=== PATIENT | female | born 1995 | race Caucasian/White ===

== ENCOUNTER 2017-11-30 12:29 | Emergency (ER) | payer MEDICAID ==
[~2017-11-30] VITALS: Ht 154.9 cm; Wt 48.1 kg
[~2017-11-30 12:29] MED LIST: ACHD5005 PO; AMIT25TA9 PO; AMIT75TA2; AMIT75TA2 PO; Amitriptyline Hcl PO; BENZ-13 PO; CEFD300C PO; CEPH-507 PO; DICY10CA26 PO; DICY10CA59 PO; DOXY100C2 PO; DOXY100C42 PO; FAMO-119 PO; FAMO20TA5 PO; GABA-486 PO; GUAI10SY4 PO; HYDR-2858 PO; HYDR-3714 PO; HYDR-757 PO; HYOS0.1216 PO; HYOS0.1283 SL; Hydroxyzine; LORA0.5T34 PO; LORA1TAB59 PO; LRT10T PO; METO10TA3 PO; MOTRIN; NITR-65 PO; NORG1TAB14; NYST1000 PO; OMEP20CA12 PO; OMEP20TA7 PO; OMEP40CA36 PO; ONDA-42 SL; ONDA4TAB8 PO; ONDA4TAB8 SL; ONDA8TAB13 PO; ONDA8TAB9 PO; ORTHO EVRA PATCH TD; ORTHO EVRA TD; PANT20TA PO; PANT20TA2 PO; PANT20TA3 PO; PANT40TA PO; PANT40TA2 PO; PHEN-640 PO; PNT40TEC PO; POTA10CA43 PO; POTA20TA15 PO; PRC25SU PR; PRD20T PO; PRM25T PO; PROM25SU10 PR; PROM25SU43 RC; RANI-10 PO; RANI75TA30 PO; SULF-222 PO; SULF1TAB35 PO; SUMA5SPR NS; TRAM50TA2 PO; TRIA10.8 NSEACH; TRM50T PO; TYLENOL
[2017-11-30 13:29] VITALS: BP 98/53
[2017-11-30] MEDS ORDERED: FENT1PAT8 (13:46)
[2017-11-30 14:42] LABS: BILIRUBIN,URINE NEGATIVE (NEGATIVE); CLARITY,URINE CLEAR; COLOR,URINE YELLOW; GLUCOSE, URINE (UA) NEGATIVE (NEGATIVE); KETONES,URINE NEGATIVE (NEGATIVE); LEUKOCYTE ESTERASE ,URINE NEGATIVE (NEGATIVE); NITRITE,URINE NEGATIVE (NEGATIVE); PH,URINE 7 (5-9); PROTEIN,URINE NEGATIVE (NEGATIVE); UROBILINOGEN,URINE NORMAL (NORMAL)
[2017-11-30 14:50] LABS: BACTERIA,URINE NEGATIVE /HPF
--- NOTE | 2017-11-30 18:52 | ED Abdominal Pain ---
General Chief Complaint: -Female Stated Complaint: PELVIC PAIN/SWELLING Nursing Triage Note: PATIENT STATES THAT SHE HAS PELVIC PAIN AND SWELLING IN HER LOWER ABDOMEN. IT HAS BEEN GOING ON FOR 2 WEEKS. SHE WAS TOLD SHE HAD ENDOMETRIOSIS WHEN SHE WAS 17. Sepsis Screen: No Definite Risk Source of Information: Patient Exam Limitations: No Limitations History of Present Illness Date Seen by Provider: Nov 30, 2017 Time Seen by Provider: 14:04 Initial Comments This 21-year-old woman presents to the emergency room with complaints as above. Urinalysis and urine test were ordered based on complaints. Patient left AGAINST MEDICAL ADVICE before being examined by provider or reviewing results. The positive test was not communicated to her prior to her leaving. Allergies and Home Medications Allergies Coded Allergies: No Known Drug Allergies (Unverified , 01/12/16) Home Medications Fentanyl 1 Each Patch.[id number], (Reported) Review of Systems Constitutional: no symptoms reported (Patient left before provider could interview her) Past Ltosxev-Gngvam-Cutsxg Hx Patient Social History Alcohol Use: Occasionally Uses Recreational Drug Use: Yes Drug of Choice: POT Type Used: Cigarettes 2nd Hand Smoke Exposure: Yes Recent Foreign Travel: No Contact w/Someone Who Travel: No Recent Infectious Disease Expo: No Recent Hopitalizations: No Immunizations Up To Date Tetanus Booster (TDap): Less than 5yrs PED Vaccines UTD: Yes Date of Pneumonia Vaccine: Nov 12, 2013 Date of Influenza Vaccine: Sep 11, 2015 Seasonal Allergies Seasonal Allergies: No Surgeries History of Surgeries: Yes (LAPAROSCOPY-OVARIAN CYST, ENDOMETRIOSIS; EGD) Surgeries: Abdominal, Appendectomy, Gallbladder Respiratory History of Respiratory Disorde: Yes Respiratory Disorders: Asthma, Pneumonia Currently Using CPAP: No Currently Using BIPAP: No Cardiovascular History of Cardiac Disorders: No Neurological History of Neurological Disord: No Reproductive System Hx Reproductive Disorders: Yes (LT OVARIAN CYST) Sexually Transmitted Disease: No HIV/AIDS: No Female 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, Ovarian Cyst Gastrointestinal History of Gastrointestinal Di: Yes (CHRONIC ABDOMINAL PAIN, CHRONIC N/V, CANNIBAS HYPEREMESIS SYNDROME) Musculoskeletal History of Musculoskeletal Dis: No Endocrine History of Endocrine Disorders: No Cancer History of Cancer: No Psychosocial History of Psychiatric Problem: Yes ("CYCLIC VOMITING", marijuana abuse) Behavioral Health Disorders: Sleep Difficulties, Anxiety, Depression Integumentary History of Skin or Integumenta: No Blood Transfusions History of Blood Disorders: No Adverse Reaction to a Blood Tr: No Family Medical History Significant Family History: No Pertinent Family Hx Family Medial History: Cancer GPA-DAD SIDE, Onset:Unknown Cataract GMA-DAD SIDE Dementia GPA-DAD SIDE Family history: Arthritis GPA-MOM SIDE Family history: Cardiovascular disease GMA-DAD SIDE (CAD STINTS) GMA-MOM SIDE (ENLARGED HEART DEFIBALATOR AND PACER) History of - respiratory disease GPA-DAD SIDE (EMPHYSEMA, COPD) No Family History of: AIDS Abdominal aortic aneurysm Abdominal aortic aneurysm Charlevoix's disease Charlevoix's disease Alcoholism Alcoholism Alzheimer's disease Aphasia Aphasia Arthritis Asthma Cancer of colon Cancer of mouth Cardiovascular disease Cataracts Chest pain Colon cancer Completed stroke Congenital disease Congenital heart disease Congenital heart disease Congestive heart failure Coronary thrombosis Cystic fibrosis Cystic fibrosis Deafness or hearing loss Diabetes mellitus Drug abuse Dysphagia Dysphasia Family history: Allergy Family history: Alzheimer's disease Family history: Asthma Family history: Breast disease Family history: Coronary thrombosis Family history: Diabetes mellitus Family history: Gastrointestinal disease Family history: Glaucoma Family history: Hypertension Family history: Osteoporosis Family history: Thyroid disorder Fibrocystic disease of breast Gastroenteritis Glaucoma Headache Hearing loss Heart disease Hereditary disease History of - anemia History of - disorder History of drug abuse Human immunodeficiency virus (HIV) seropositivity Hypercholesterolemia Hypercholesterolemia Infertile Kidney disease Malignant neoplasm of lung Myocardial infarction Parkinson's disease Prostate cancer Psychotic disorder Seizure disorder Severe allergy Stroke Thyroid disease Tuberculosis Tuberculosis Visual disorder Visual impairment Physical Exam Vital Signs VS - Last 72 Hours, by Label 11/30/17 13:29 Temp 98.1 Pulse 108 Resp 18 B/P (MAP) 98/53 (68) Pulse Ox 97 Capillary Refill : Less Than 3 Seconds General Appearance: no apparent distress (Patient left before provider could examine her) Progress/Results/Core Measures Results/Orders Lab Results Laboratory Tests Test 11/30/17 14:20 Range/Units Urine Color YELLOW Urine Clarity CLEAR Urine pH 7 5-9 Urine Specific [place] 1.005 L 1.016-1.022 Urine Protein NEGATIVE NEGATIVE Urine Glucose (UA) NEGATIVE NEGATIVE Urine Ketones NEGATIVE NEGATIVE Urine Nitrite NEGATIVE NEGATIVE Urine Bilirubin NEGATIVE NEGATIVE Urine Urobilinogen NORMAL NORMAL MG/DL Urine Leukocyte Esterase NEGATIVE NEGATIVE Urine RBC (Auto) NEGATIVE NEGATIVE Urine RBC NONE /HPF Urine WBC NONE /HPF Urine Squamous Epithelial Cells 10-25 H /HPF Urine Crystals NONE /LPF Urine Bacteria NEGATIVE /HPF Urine Casts NONE /LPF Urine Mucus NEGATIVE /LPF Urine Culture Indicated NO Urine Test POSITIVE NEGATIVE My Orders Orders - DONNA MOHAMUD MD Hcg,Qualitative Urine (11/30/17 14:04) Ua Culture If Indicated (11/30/17 14:04) Vital Signs/I&O Vital Sign - Last 12Hours 11/30/17 13:29 Temp 98.1 Pulse 108 Resp 18 B/P (MAP) 98/53 (68) Pulse Ox 97 Blood Pressure Mean: 68 Point of Care Testing Urine -Bedside: Positive Progress Note : Time: 18:51 Progress Note Patient left without being seen. test was positive. I attempted to contact her by phone on her listed phone number and the contact she had listed. Her number and her father's number were no longer assigned to them. Her mother's phone was busy. 12/01/17, 07:15 - I again attempted to contact patient's next of kin listed on the chart which is her mother. The number remains busy. I will ask ER staff to notify the patient by letter. Departure Impression Impression: Primary Impression: test positive Additional Impressions: Pelvic pain Left against medical advice Disposition: 07 AGAINST MEDICAL ADVICE Condition: Improved Departure-Patient Inst. Referrals: [facility] (PCP) Primary Care Physician Copy Copies To 1: CAYDEN RAZA JOSHUA T MD Nov 30, 2017 18:52
== END 2017-11-30 14:57 | disposition left against medical advice (07) ==
LOC: EDUNIT# 12:29 → ER 12:31
DX: R10.30 Lower abdominal pain, unspecified (principal); F41.9 Anxiety disorder, unspecified; F32.9 Major depressive disorder, single episode, unspecified; G47.9 Sleep disorder, unspecified; J45.909 Unspecified asthma, uncomplicated; F12.90 Cannabis use, unspecified, uncomplicated; Z77.22 Contact with and (suspected) exposure to environmental tobacco smoke (acute) (chronic); Z90.49 Acquired absence of other specified parts of digestive tract; Z87.01 Personal history of pneumonia (recurrent); Z87.42 Personal history of other diseases of the female genital tract; Z32.02 Encounter for pregnancy test, result negative
CPT/HCPCS: 81000; 84703; 99282

== ENCOUNTER 2017-12-09 20:52 | Emergency (ER) | payer MEDICAID ==
[~2017-12-09] VITALS: Ht 157.5 cm; Wt 54.4 kg
[~2017-12-09 20:52] MED LIST changes: +FENT1PAT8
--- NOTE | 2017-12-09 23:38 | ED GU-Female ---
General Chief Complaint: Abdominal/GI Problems Stated Complaint: EDOMETRIOSIS Nursing Triage Note: pt reports lower abdominal, pelvic pain x2-3 weeks. pt denies n/v/d. pt also reports pain with intercorse. pt states has hx of pelvic pain. Nursing Sepsis Screen: No Definite Risk Source: patient Exam Limitations: no limitations History of Present Illness Date Seen by Provider: Dec 09, 2017 Time Seen by Provider: 21:35 Initial Comments 22-year-old female patient presents to the emergency Department with reports of lower abdominal cramping/pelvic pain for 2-3 weeks. Patient denies nausea, vomiting, diarrhea. Has had increased frequency of urination and breast tenderness bilaterally. Denies fevers or chills. Patient states she has been with the same partner for approximately one year. Denies using condoms or making her S.O. "pull out". Denies using contraceptives. States she was previously told she would never be able to get . Patient was seen in the emergency department on 11/30/[address] Willis. Patient left AGAINST MEDICAL ADVICE. Patient states she left, because she got tired of waiting and that she had been in the ER for at least 4 hours and no one had seen her or had done anything. Per EMR patient timeline of visit as follows: arrival time 1229, triaged at 1329, seen by provider at 1404, urine specimen given at 1420, patient left AMA at 1457. Patient did have a positive urine test. Dr. Willis had attempted to contact the patient via telephone. All contact numbers listed in the EMR were invalid numbers. Patient sees Dr. Estes at [facility] for medical care, but states she has not seen him for several months. States she has not filled or taken the fentanyl, Ativan, or Percocet for several months for the cyclic vomiting ( patient's actual diagnosis is Cannabis Hyperemesis per past medical records in EMR and from previous visits with this examiner at [facility] ED). Timing/Duration: intermittent, other (2-3 week onset) Severity/Quality: cramping, other (mild to moderate symptoms) Location: suprapubic Radiation: none Activities at Onset: none Prior Genitourinary Problems: none Sexual [place] History: less than 2 months ago, single partner Modifying Factors: Worsens With Other (denies modifying factors) Allergies and Home Medications Allergies Coded Allergies: No Known Drug Allergies (Unverified , 01/12/16) Constitutional: No chills, No diaphoresis, No dizziness, No fever, No malaise, No weakness EENTM: no symptoms reported Respiratory: No cough, No dyspnea on exertion, No phlegm, No short of breath Cardiovascular: No chest pain, No edema, No palpitations, No syncope Gastrointestinal: abdominal pain (suprapubic abdominal pain), No constipation, No diarrhea, No loss of appetite, No melena, No nausea, No vomiting Genitourinary: see HPI, denies burning, denies discharge, denies dysuria, frequency, denies flank pain, denies hematuria, pain (suprapubic abdominal pain) : Yes (per EMR) LMP: Nov 03, 2017 Musculoskeletal: no symptoms reported Skin: no symptoms reported Psychiatric/Neurological: No Symptoms Reported All Other Systemes Reviewed Negative Unless Noted: Yes (Negative excepted noted.) Past Rjqgspb-Ehknmh-Tnssjz Hx Patient Social History Alcohol Use: Denies Use Recreational Drug Use: Yes Drug of Choice: POT Smoking Status: Current Everyday Smoker Type Used: Cigarettes 2nd Hand Smoke Exposure: Yes Recent Foreign Travel: No Contact w/Someone Who Travel: No Recent Infectious Disease Expo: No Recent Hopitalizations: No Physical Abuse: No Sexual Abuse: No Mistreated: No Fear: No Immunizations Up To Date Tetanus Booster (TDap): Less than 5yrs PED Vaccines UTD: Yes Date of Pneumonia Vaccine: Nov 12, 2013 Date of Influenza Vaccine: Sep 11, 2015 Seasonal Allergies Seasonal Allergies: No Surgeries History of Surgeries: Yes (LAPAROSCOPY-OVARIAN CYST, ENDOMETRIOSIS; EGD) Surgeries: Abdominal, Appendectomy, Gallbladder Respiratory History of Respiratory Disorde: Yes Respiratory Disorders: Asthma, Pneumonia Currently Using CPAP: No Currently Using BIPAP: No Cardiovascular History of Cardiac Disorders: No Neurological History of Neurological Disord: No Reproductive System Hx Reproductive Disorders: Yes (LT OVARIAN CYST) Sexually Transmitted Disease: No HIV/AIDS: No Female 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, Ovarian Cyst Gastrointestinal History of Gastrointestinal Di: Yes (CHRONIC ABDOMINAL PAIN, CHRONIC N/V, CANNIBAS HYPEREMESIS SYNDROME) Musculoskeletal History of Musculoskeletal Dis: No Endocrine History of Endocrine Disorders: No Cancer History of Cancer: No Psychosocial History of Psychiatric Problem: Yes ("CYCLIC VOMITING", marijuana abuse) Behavioral Health Disorders: Sleep Difficulties, Anxiety, Depression Suicide Risk Score: 0 Integumentary History of Skin or Integumenta: No Blood Transfusions History of Blood Disorders: No Adverse Reaction to a Blood Tr: No Reviewed Nursing Assessment Reviewed/Agree w Nursing PMH: Yes Family Medical History Significant Family History: No Pertinent Family Hx Family Medial History: Cancer GPA-DAD SIDE, Onset:Unknown Cataract GMA-DAD SIDE Dementia GPA-DAD SIDE Family history: Arthritis GPA-MOM SIDE Family history: Cardiovascular disease GMA-DAD SIDE (CAD STINTS) GMA-MOM SIDE (ENLARGED HEART DEFIBALATOR AND PACER) History of - respiratory disease GPA-DAD SIDE (EMPHYSEMA, COPD) No Family History of: AIDS Abdominal aortic aneurysm Abdominal aortic aneurysm Elmer's disease Fidel's disease Alcoholism Alcoholism Alzheimer's disease Aphasia Aphasia Arthritis Asthma Cancer of colon Cancer of mouth Cardiovascular disease Cataracts Chest pain Colon cancer Completed stroke Congenital disease Congenital heart disease Congenital heart disease Congestive heart failure Coronary thrombosis Cystic fibrosis Cystic fibrosis Deafness or hearing loss Diabetes mellitus Drug abuse Dysphagia Dysphasia Family history: Allergy Family history: Alzheimer's disease Family history: Asthma Family history: Breast disease Family history: Coronary thrombosis Family history: Diabetes mellitus Family history: Gastrointestinal disease Family history: Glaucoma Family history: Hypertension Family history: Osteoporosis Family history: Thyroid disorder Fibrocystic disease of breast Gastroenteritis Glaucoma Headache Hearing loss Heart disease Hereditary disease History of - anemia History of - disorder History of drug abuse Human immunodeficiency virus (HIV) seropositivity Hypercholesterolemia Hypercholesterolemia Infertile Kidney disease Malignant neoplasm of lung Myocardial infarction Parkinson's disease Prostate cancer Psychotic disorder Seizure disorder Severe allergy Stroke Thyroid disease Tuberculosis Tuberculosis Visual disorder Visual impairment Physical Exam Vital Signs Vital Signs - First Documented 12/09/17 21:04 Temp 97.9 Pulse 101 Resp 20 B/P (MAP) 113/69 (84) Pulse Ox 99 Capillary Refill : Less Than 3 Seconds General Appearance: WD/WN, no apparent distress HEENT: PERRL/EOMI, pharynx normal Neck: supple, normal inspection Cardiovascular: normal peripheral pulses, regular rate, rhythm, no edema, no murmur Respiratory: lungs clear, normal breath sounds, no respiratory distress, no accessory muscle use Gastrointestinal: normal bowel sounds, soft, no organomegaly (unable to palpate uterus on exam.), No distended, No guarding, No rebound, tenderness ( very minimal suprapubic tenderness.) Back: normal inspection, no CVA tenderness Extremities: no pedal edema, no calf tenderness, normal capillary refill Neurologic/Psychiatric: alert, normal mood/affect, oriented x 3 Skin: normal color, warm/dry Progress/Results/Core Measures Suspected Sepsis Recent Fever Within 48 Hours: No Infection Criteria Present: None New/Unexplained Altered Menta: No Sepsis Screen: No Definite Risk Sepsis Diagnosis: SIRS Temperature:97.9 Pulse: 101 Respiratory Rate: 20 Blood Pressure 113 /69 Mean: 84 Results/Orders My Orders Vital Signs/I&O Capillary Refill : Less Than 3 Seconds Blood Pressure Mean: 84 Point of Care Testing Urine -Bedside: Positive Departure Communication (Admissions) Progress Notes Initially patient reported that she has not used her that now patch, Ativan, or Percocet for 3-4 months. I discussed her case tract results with her and that she had filled the fentanyl on 11/03/[address] Estes. Patient states the prescription is still at Dr. Estes's office and she has not picked the written prescription up to take to the pharmacy. I discussed with her that tracks does not report the prescription if it has not been taken to the pharmacy. Patient also repeatedly states that she has cyclic vomiting. I have corrected her several times that her diagnosis is cannabis hyperemesis. Patient states "I know it is." Based on patient's LMP her EDC is Aug 12, 2018. I discussed the results of her positive test and that this was found on her last visit on 11/30/[address] Salinas. I have stressed the importance of remaining in the emergency department until all laboratory results and diagnostic results are obtained and discussed with her as well as making sure all contact information is up-to-date and accurate. Patient now admits to still using the fentanyl patches, friends opioids, and using marijuana. Patient states "I am done with all of that. I'm not going to hurt my baby." Patient refusing pain medication including Tylenol in the emergency department. I did attempt FHT's in the ED; however, patient is 5 wks 1 day gestation based on LMP and too early to hear FHT 's. Urinalysis results obtained and discussed with the patient. We'll plan for patient to follow-up with her PCP to discuss medications and need for medication changes/discontinuation. Patient to also schedule an appointment with the banquet attendant of her choice as an outpatient to establish care. She will call their office for appointment time. A list has been provided for her of obstetricians in [place]. All return precautions were discussed with the patient as described in the discharge instructions of this report. Patient verbalizes understanding and agrees with the treatment plan. Patient case discussed with Dr. Crabtree, he agrees with the plan of care. Impression Impression: Primary Impression: Positive test Additional Impression: Volume depletion Disposition: 01 HOME, SELF-CARE Condition: Improved Departure-Patient Inst. Decision time for Depature: 23:37 [place]: [facility] [place] Primary Care Physician Patient Instructions: How to Adapt to Physical Changes During , How to Plan and Prepare for a Healthy Add. Discharge Instructions: All discharge instructions reviewed with patient and/or family. Voiced understanding. Follow-up with the banquet attendant of your choice to establish care and for further evaluation/management. Call tomorrow morning for appointment time. Return to the emergency department for fever, vomiting, vomiting blood, inability to urinate, vaginal bleeding with greater than 2 pads per hour for greater than 2 hours, abdominal pain, or any other concerns. Copy Copies To 1: SELF,ORLANDO RIVERO MD Dec 09, 2017 23:38
[2017-12-09 23:40] VITALS: BP 113/91
[2017-12-09 23:45] LABS: CLARITY,URINE CLEAR; COLOR,URINE YELLOW; GLUCOSE, URINE (UA) NEGATIVE (NEGATIVE); PH,URINE 8 (5-9); PROTEIN,URINE NEGATIVE (NEGATIVE)
[2017-12-09 23:46] LABS: AMORPHOUS SEDIMENT,UR RARE AMOR PHOSPHATE /LPF; BACTERIA,URINE NEGATIVE /HPF; BILIRUBIN,URINE NEGATIVE (NEGATIVE); KETONES,URINE 1+ (NEGATIVE); LEUKOCYTE ESTERASE ,URINE NEGATIVE (NEGATIVE); NITRITE,URINE NEGATIVE (NEGATIVE); SQUAMOUS EPITHELIAL CELL,UR >50 /HPF; UROBILINOGEN,URINE NORMAL (NORMAL)
== END 2017-12-09 23:40 | disposition home or self-care (01) ==
LOC: EDUNIT# 20:52 → ER 20:54
DX: E86.9 Volume depletion, unspecified (principal); J45.909 Unspecified asthma, uncomplicated; F41.9 Anxiety disorder, unspecified; F32.9 Major depressive disorder, single episode, unspecified; F17.210 Nicotine dependence, cigarettes, uncomplicated; F12.10 Cannabis abuse, uncomplicated; Z33.1 Pregnant state, incidental; Z82.49 Family history of ischemic heart disease and other diseases of the circulatory system; Z90.49 Acquired absence of other specified parts of digestive tract; Z87.01 Personal history of pneumonia (recurrent); Z87.448 Personal history of other diseases of urinary system
CPT/HCPCS: 81000; 84703; 99282

== ENCOUNTER 2017-12-15 17:43 | Emergency (ER) | payer MEDICAID ==
[~2017-12-15] VITALS: Ht 154.9 cm; Wt 48.1 kg
[2017-12-15 18:18] LABS: BILIRUBIN,URINE NEGATIVE (NEGATIVE); CLARITY,URINE CLEAR; COLOR,URINE YELLOW; GLUCOSE, URINE (UA) NEGATIVE (NEGATIVE); KETONES,URINE 3+ (NEGATIVE); LEUKOCYTE ESTERASE ,URINE 1+ (NEGATIVE); NITRITE,URINE NEGATIVE (NEGATIVE); PH,URINE 7 (5-9); PROTEIN,URINE NEGATIVE (NEGATIVE); UROBILINOGEN,URINE NORMAL (NORMAL)
[2017-12-15 18:19] LABS: WBC,URINE 0-2 /HPF
--- NOTE | 2017-12-15 18:19 | ED GU-Female ---
General Chief Complaint: Abdominal/GI Problems Stated Complaint: ABD PAIN; 5-6 WKS Nursing Triage Note: pt c/o lower abd pain for 2 days. Pt is 5-6 weeks Nursing Sepsis Screen: No Definite Risk Source: patient History of Present Illness Date Seen by Provider: Dec 15, 2017 Time Seen by Provider: 17:57 Initial Comments PT C/O LOWER ABDOMINAL PAIN SINCE SHE FOUND OUT SHE WAS A WEEK AGO PT STATES PAIN HAS BEEN WORSE FOR THE LAST 2 DAYS--STATES "IT'S PARALYZING AND I CAN'T MOVE" CLAIMS SHE HAS NOT TAKEN ANYTHING FOR PAIN AT ANY TIME ( HOWEVER, PER [facility], PT HAS RECEIVED MULTIPLE RX'S FOR FENTANYL PATCHES--FILLED FENTANYL PATCH RX ON 12/10/17 FOR #10 PATCHES-, OXYCODONE, AND LORAZEPAM--MOST BY DR. FOUNTAIN, AND A FEW BY DR. SAMUEL, BOTH IN [facility]) PT STATES SHE TAKES FENTANYL FOR HER "CHRONIC ABDOMINAL PAIN AND CYCLIC VOMITING SYNDROME" AND SHE SMOKES MARIJUANA DAILY FOR THE SAME AND NOW CLAIMS THAT SINCE SHE IS "I DON'T HAVE AN APPETITE" SO SHE "SMOKES MARIJUANA SO SHE CAN EAT" ON REVIEW OF OLD RECORDS, PT WAS HERE 11/30/17 FOR THIS COMPLAINT, BUT LEFT AMA BEFORE TEST RESULTS WERE BACK CAME BACK AGAIN 12/09/17 FOR SAME COMPLAINT--STATED AT THAT TIME THE PAIN HAD BEEN GOING ON FOR 2-3 WEEKS PT HAS NOT SEEN ANYONE ELSE FOR THIS PROBLEM, STATES SHE HAS NEW OB APPOINTMENT WITH DR. NI 12/24/17 C/O NAUSEA AND VOMITING--STATES EMESIS X 6 TODAY NO DIARRHEA NO URINARY SYMPTOMS NO FEVER NO VAGINAL BLEEDING OR DISCHARGE PCP: FT. ISIAH ZHONG Allergies and Home Medications Allergies Coded Allergies: No Known Drug Allergies (Unverified , 01/12/16) Patient Home Medication List Home Medication List Reviewed: Yes Constitutional: no symptoms reported Respiratory: no symptoms reported Cardiovascular: no symptoms reported Gastrointestinal: see HPI, abdominal pain, nausea, vomiting Genitourinary: see HPI : Yes Musculoskeletal: no symptoms reported Skin: no symptoms reported Psychiatric/Neurological: No Symptoms Reported Endocrine: No Symptoms Reported Hematologic/Lymphatic: No Symptoms Reported Past Uenjdcv-Euwdgy-Nvisbb Hx Patient Social History Alcohol Use: Denies Use Recreational Drug Use: Yes (THC, FENTANYL, OXYCODONE) Drug of Choice: THC, FENTANYL, OXYCODONE Smoking Status: Current Everyday Smoker (1 1/2 PPD) Type Used: Cigarettes (1 /2 PPD) 2nd Hand Smoke Exposure: Yes Recent Foreign Travel: No Contact w/Someone Who Travel: No Recent Infectious Disease Expo: No Recent Hopitalizations: No Physical Abuse: No Sexual Abuse: No Immunizations Up To Date Tetanus Booster (TDap): Less than 5yrs PED Vaccines UTD: Yes Date of Pneumonia Vaccine: Nov 12, 2013 Date of Influenza Vaccine: Sep 11, 2015 Seasonal Allergies Seasonal Allergies: No Surgeries History of Surgeries: Yes (LAPAROSCOPY-OVARIAN CYST, ENDOMETRIOSIS; EGD) Surgeries: Abdominal, Appendectomy, Gallbladder Respiratory History of Respiratory Disorde: Yes Respiratory Disorders: Asthma, Pneumonia Currently Using CPAP: No Currently Using BIPAP: No Cardiovascular History of Cardiac Disorders: No Neurological History of Neurological Disord: No Reproductive System : Yes Hx Reproductive Disorders: Yes (LT OVARIAN CYST) Sexually Transmitted Disease: No HIV/AIDS: No Female 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, Ovarian Cyst Genitourinary History of Genitourinary Disor: No Gastrointestinal History of Gastrointestinal Di: Yes (CHRONIC ABDOMINAL PAIN, CHRONIC N/V, CANNABIS HYPEREMESIS SYNDROME) Musculoskeletal History of Musculoskeletal Dis: No Endocrine History of Endocrine Disorders: No HEENT History of HEENT Disorders: No Cancer History of Cancer: No Psychosocial History of Psychiatric Problem: Yes ("CYCLIC VOMITING", marijuana abuse) Behavioral Health Disorders: Sleep Difficulties, Anxiety, Depression Suicide Risk Score: 0 Integumentary History of Skin or Integumenta: No Blood Transfusions History of Blood Disorders: No Adverse Reaction to a Blood Tr: No Family Medical History Significant Family History: No Pertinent Family Hx Family Medial History: Cancer GPA-DAD SIDE, Onset:Unknown Cataract GMA-DAD SIDE Dementia GPA-DAD SIDE Family history: Arthritis GPA-MOM SIDE Family history: Cardiovascular disease GMA-DAD SIDE (CAD STINTS) GMA-MOM SIDE (ENLARGED HEART DEFIBALATOR AND PACER) History of - respiratory disease GPA-DAD SIDE (EMPHYSEMA, COPD) No Family History of: AIDS Abdominal aortic aneurysm Abdominal aortic aneurysm [place]'s disease Fidel's disease Alcoholism Alcoholism Alzheimer's disease Aphasia Aphasia Arthritis Asthma Cancer of colon Cancer of mouth Cardiovascular disease Cataracts Chest pain Colon cancer Completed stroke Congenital disease Congenital heart disease Congenital heart disease Congestive heart failure Coronary thrombosis Cystic fibrosis Cystic fibrosis Deafness or hearing loss Diabetes mellitus Drug abuse Dysphagia Dysphasia Family history: Allergy Family history: Alzheimer's disease Family history: Asthma Family history: Breast disease Family history: Coronary thrombosis Family history: Diabetes mellitus Family history: Gastrointestinal disease Family history: Glaucoma Family history: Hypertension Family history: Osteoporosis Family history: Thyroid disorder Fibrocystic disease of breast Gastroenteritis Glaucoma Headache Hearing loss Heart disease Hereditary disease History of - anemia History of - disorder History of drug abuse Human immunodeficiency virus (HIV) seropositivity Hypercholesterolemia Hypercholesterolemia Infertile Kidney disease Malignant neoplasm of lung Myocardial infarction Parkinson's disease Prostate cancer Psychotic disorder Seizure disorder Severe allergy Stroke Thyroid disease Tuberculosis Tuberculosis Visual disorder Visual impairment Physical Exam Vital Signs Vital Signs - First Documented 12/15/17 18:00 Temp 97.0 Pulse 78 Resp 18 B/P (MAP) 115/78 (90) Pulse Ox 98 Capillary Refill : Less Than 3 Seconds General Appearance: WD/WN, no apparent distress, thin, other (LAYING FLAT, TEXTING/PLAYING ON PHONE, DOES NOT APPEAR TO BE IN ANY DISCOMFORT WHATSOEVER.WALKS UPRIGHT AND MOVES QUICKLY WITHOUT DIFFICULTY. 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, no motor/sensory deficits, alert, normal mood/affect, oriented x 3 Skin: normal color, warm/dry, tattoos/piercings (MULTIPLE TATTOOS) Progress/Results/Core Measures Suspected Sepsis Recent Fever Within 48 Hours: No Infection Criteria Present: None New/Unexplained Altered Menta: No Sepsis Screen: No Definite Risk Sepsis Diagnosis: SIRS Temperature:97.0 Pulse: 78 Respiratory Rate: 18 Laboratory Tests 12/15/17 18:17: White Blood Count 9.0 Blood Pressure 115 /78 Mean: 90 Laboratory Tests 12/15/17 18:17: Creatinine 0.55L, Platelet Count 269 Results/Orders Lab Results Laboratory Tests Test 12/15/17 18:05 12/15/17 18:17 Range/Units Urine Color YELLOW Urine Clarity CLEAR Urine pH 7 5-9 Urine Specific [place] 1.010 L 1.016-1.022 Urine Protein NEGATIVE NEGATIVE Urine Glucose (UA) NEGATIVE NEGATIVE Urine Ketones 3+ H NEGATIVE Urine Nitrite NEGATIVE NEGATIVE Urine Bilirubin NEGATIVE NEGATIVE Urine Urobilinogen NORMAL NORMAL MG/DL Urine Leukocyte Esterase 1+ H NEGATIVE Urine RBC (Auto) NEGATIVE NEGATIVE Urine RBC NONE /HPF Urine WBC 0-2 /HPF Urine Squamous Epithelial Cells 5-10 /HPF Urine Crystals NONE /LPF Urine Bacteria NONE /HPF Urine Casts NONE /LPF Urine Mucus PRESENT /LPF Urine Culture Indicated NO Urine Opiates Screen NEGATIVE NEGATIVE Urine Oxycodone Screen POSITIVE H NEGATIVE Urine Methadone Screen NEGATIVE NEGATIVE Urine Propoxyphene Screen NEGATIVE NEGATIVE Urine Barbiturates Screen NEGATIVE NEGATIVE Ur Tricyclic Antidepressants Screen NEGATIVE NEGATIVE Urine Phencyclidine Screen NEGATIVE NEGATIVE Urine Amphetamines Screen NEGATIVE NEGATIVE Urine Methamphetamines Screen NEGATIVE NEGATIVE Urine Benzodiazepines Screen NEGATIVE NEGATIVE Urine Cocaine Screen NEGATIVE NEGATIVE Urine Cannabinoids Screen POSITIVE H NEGATIVE White Blood Count 9.0 4.3-11.0 10^3/uL Red Blood Count 4.01 L 4.35-5.85 10^6/uL Hemoglobin 12.9 11.5-16.0 G/DL Hematocrit 36 35-52 % Mean Corpuscular Volume 89 80-99 FL Mean Corpuscular Hemoglobin 32 25-34 PG Mean Corpuscular Hemoglobin Concent 36 32-36 G/DL Red Cell Distribution Width 12.3 10.0-14.5 % Platelet Count 269 130-400 10^3/uL Mean Platelet Volume 9.3 7.4-10.4 FL Neutrophils (%) (Auto) 69 42-75 % Lymphocytes (%) (Auto) 27 12-44 % Monocytes (%) (Auto) 4 0-12 % Eosinophils (%) (Auto) 0 0-10 % Basophils (%) (Auto) 0 0-10 % Neutrophils # (Auto) 6.2 1.8-7.8 X 10^3 Lymphocytes # (Auto) 2.4 1.0-4.0 X 10^3 Monocytes # (Auto) 0.4 0.0-1.0 X 10^3 Eosinophils # (Auto) 0.0 0.0-0.3 10^3/uL Basophils # (Auto) 0.0 0.0-0.1 10^3/uL Sodium Level 135 135-145 MMOL/L Potassium Level 3.2 L 3.6-5.0 MMOL/L Chloride Level 108 H 98-107 MMOL/L Carbon Dioxide Level 18 L 21-32 MMOL/L Anion Gap 9 5-14 MMOL/L Blood Urea Nitrogen 5 L 7-18 MG/DL Creatinine 0.55 L 0.60-1.30 MG/DL Estimat Glomerular Filtration Rate > 60 BUN/Creatinine Ratio 9 Glucose Level 84 70-105 MG/DL Calcium Level 8.3 L 8.5-10.1 MG/DL Human Chorionic Gonadotropin, Quant 91669 H <5 MIU/ML My Orders Orders - ZOHREH HAYWARD DO Ua Culture If Indicated (12/15/17 18:00) Urine Bedside (12/15/17 18:00) Abo Rh Type (12/15/17 18:08) Basic Metabolic Panel (12/15/17 18:08) Cbc With Automated Diff (12/15/17 18:08) Hcg,Quantitative (12/15/17 18:08) Drug Screen Stat (Urine) (12/15/17 18:08) Us Ob Transvaginal [id number] (12/15/17 18:08) Vital Signs/I&O Vital Sign - Last 12Hours 12/15/17 18:00 Temp 97.0 Pulse 78 Resp 18 B/P (MAP) 115/78 (90) Pulse Ox 98 Capillary Refill : Less Than 3 Seconds Blood Pressure Mean: 90 Point of Care Testing Urine -Bedside: Positive Progress Note : Progress Note NO SYMPTOMS DURING ER STAY Diagnostic Imaging Comments ULTRASOUND--IUP 6W 0 DAYS. FHR 105. LIKELY RIGHT CORPUS LUTEAL CYST. PER RADIOLOGIST REPORT @ 2006 Reviewed: Reviewed by Me Departure Impression Impression: Primary Impression: Illicit drug use, continuous Additional Impressions: CHRONIC ABDOMINAL PAIN AND NAUSEA/VOMITING DUE TO CHRONIC THC USE LOWER ABDOMINAL PAIN IN FIRST TRIMESTER OF Disposition: 01 HOME, SELF-CARE Condition: Stable Departure-Patient Inst. Referrals: [facility] (PCP/Family) Primary Care Physician Patient Instructions: Alcohol and Illegal Drug Use in , How to Plan and Prepare for a Healthy , Nausea and Vomiting of (DC), Nutrition Before and During , - The Second Month, Smoking and Add. Discharge Instructions: NO SMOKING!! NO MARIJUANA USE!! TYLENOL ONLY, NEEDED FOR PAIN . 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 NI NEXT WEEK SCHEDULED All discharge instructions reviewed with patient and/or family. Voiced understanding. Scripts Doxylamine/Pyridoxine HCl (Carmen Singh 10-10 mg Tablet) 1 Each Tablet. 2 EACH PO HS, #14 TAB Prov: ZOHREH HAYWARD DO 12/15/17 ZOHREH HAYWARD DO Dec 15, 2017 18:19
[2017-12-15 18:22] LABS: BASOPHILS % (AUTO) 0 % (0-10); EOSINOPHILS % (AUTO) 0 % (0-10); HEMATOCRIT 36 % (35-52); HEMOGLOBIN 12.9 G/DL (11.5-16.0); LYMPHOCYTES # (AUTO) 2.4 X 10^3 (1.0-4.0); LYMPHOCYTES % (AUTO) 27 % (12-44); MEAN CORPUSCULAR HEMOGLOBIN 32 PG (25-34); MEAN CORPUSCULAR HGB CONC 36 G/DL (32-36); MEAN CORPUSCULAR VOLUME 89 FL (80-99); MEAN PLATELET VOLUME 9.3 FL (7.4-10.4); MONOCYTES # (AUTO) 0.4 X 10^3 (0.0-1.0); MONOCYTES % (AUTO) 4 % (0-12); NEUTROPHILS # (AUTO) 6.2 X 10^3 (1.8-7.8); NEUTROPHILS % (AUTO) 69 % (42-75); PLATELET COUNT 269 10^3/uL (130-400); RED BLOOD COUNT 4.01 10^6/uL (4.35-5.85); RED CELL DISTRIBUTION WIDTH 12.3 % (10.0-14.5)
[2017-12-15 18:27] LABS: AMPHETAMINE SCREEN, URINE NEGATIVE (NEGATIVE); BARBITURATE SCREEN URINE NEGATIVE (NEGATIVE); BENZODIAZEPINES SCREEN URINE NEGATIVE (NEGATIVE); CANNABINOID SCREEN, URINE POSITIVE (NEGATIVE); COCAINE SCREEN URINE NEGATIVE (NEGATIVE); METHADONE STAT NEGATIVE (NEGATIVE); METHAMPHETAMINE SCREEN URINE S NEGATIVE (NEGATIVE); OPIATE SCREEN URINE NEGATIVE (NEGATIVE); OXYCODONE STAT POSITIVE (NEGATIVE); PROPOXYPHENE STAT NEGATIVE (NEGATIVE); TRICYCLIC ANTIDEPRESSANTS SCRE NEGATIVE (NEGATIVE)
[2017-12-15 18:41] LABS: BUN/CREATININE RATIO 9; CALCIUM 8.3 MG/DL (8.5-10.1); CARBON DIOXIDE 18 MMOL/L (21-32); CHLORIDE 108 MMOL/L (98-107); CREATININE SERUM 0.55 MG/DL (0.60-1.30); GFR ESTIMATED > 60; GLUCOSE 84 MG/DL (70-105); POTASSIUM 3.2 MMOL/L (3.6-5.0); SODIUM 135 MMOL/L (135-145)
--- NOTE | 2017-12-15 20:04 | Diagnostic Imaging Report ---
CLINICAL INDICATION: Patient with cramping. No bleeding. EXAM: First trimester transvaginal pelvic OB ultrasound. FINDINGS: LMP is 11/10/2017. GA (by LMP): 5 weeks and 0 days GLADIS (by LMP): 08/17/2018. GA (by AUA): 6 weeks and 0 days GLADIS (by AUA): 08/10/2018. There is a single, viable, intrauterine fetus present. A gestational sac and yolk sac are visualized. A pole is noted measuring 0.33 cm which correlates to 6 weeks and 0 days. Heart beat is 105 beats per minute. There is a roughly 2.1 cm x 2.4 cm x 2.0 cm heterogeneous hypoechoic structure within the right ovarian area with mild peripheral Doppler flow. Corpus luteum may possibly be considered. The left ovary is not visualized. Otherwise, the right and left adnexal regions are unremarkable. The remainder of the visualized cervix is unremarkable. IMPRESSION: 1: Early intrauterine with heartbeat of 105 beats per minute and gestational age of 6 weeks and 0 days. Given the slow heart rate, which may be related to early intrauterine , followup OB ultrasound would help better evaluate for progression of . Dictated by: Dictated on workstation # [id number]
[2017-12-15] MEDS ORDERED: DOXY1TAB3 PO (20:11)
[2017-12-15 20:30] VITALS: BP 112/78
[2017-12-16] MEDS ORDERED: METR500T21 PO (14:38)
== END 2017-12-15 20:30 | disposition home or self-care (01) ==
LOC: EDUNIT# 17:43 → ER 17:45
DX: O99.89 Other specified diseases and conditions complicating pregnancy, childbirth and the puerperium (principal); R10.30 Lower abdominal pain, unspecified; O21.9 Vomiting of pregnancy, unspecified; O99.321 Drug use complicating pregnancy, first trimester; F12.10 Cannabis abuse, uncomplicated; O99.511 Diseases of the respiratory system complicating pregnancy, first trimester; J45.909 Unspecified asthma, uncomplicated; O99.341 Other mental disorders complicating pregnancy, first trimester; F41.9 Anxiety disorder, unspecified; F32.9 Major depressive disorder, single episode, unspecified; O99.331 Smoking (tobacco) complicating pregnancy, first trimester; F17.210 Nicotine dependence, cigarettes, uncomplicated; Z3A.01 Less than 8 weeks gestation of pregnancy; Z87.01 Personal history of pneumonia (recurrent); Z82.49 Family history of ischemic heart disease and other diseases of the circulatory system; Z90.49 Acquired absence of other specified parts of digestive tract; Z87.448 Personal history of other diseases of urinary system
CPT/HCPCS: 36415; 76817; 80048; 80306; 81000; 84702; 84703; 85025; 86900; 86901

== ENCOUNTER 2017-12-16 12:21 | Emergency (ER) | payer MEDICAID ==
[~2017-12-16] VITALS: Ht 154.9 cm; Wt 48.1 kg
[~2017-12-16 12:21] MED LIST changes: +DOXY1TAB3 PO
--- NOTE | 2017-12-16 13:28 | ED Abdominal Pain ---
General Chief Complaint: -Female Stated Complaint: VOMITING Nursing Triage Note: ARRIVED VIA AMB TO ROOM 06. COMPLAINS OF N/V. PT WAS SEEN HERE LAST NIGHT ET STATES SHE GOT HER MEDICATION AND ALL IT DOES IS MAKES HER MORE SICK. PHARMACY CONTACTED ET STATES SHE DID NOT GET THE MEDICATION FILLED. PT STATES THE LAST TIME SHE SMOKED POT WAS TWO DAYS AGO. EDUCATION GIVEN ON SMOKING POT WHILE BEING AND THAT HER BABY COULD BE TAKEN AWAY BECAUSE OF DRUG USE. PT IS APPX 6 WEEKS GESTATION. Sepsis Screen: No Definite Risk Source of Information: Patient Exam Limitations: No Limitations History of Present Illness Date Seen by Provider: Dec 16, 2017 Time Seen by Provider: 13:24 Initial Comments To ER with reports of nausea vomiting and suprapubic abdominal pain. She was seen here last night for the same given a prescription for diabetes which she states was too expensive so she took an dona-gmi-jauilzd sleep aid [facility]. She reports that she has suprapubic abdominal pain and would like to know what she is supposed to do about the pain. She is on fentanyl patches and tested positive for oxycodone last night. She had A pelvic ultrasound last night and she is . Timing/Duration: 1-2 Days Severity/Quality: Moderate Location: Suprapubic Associated Symptoms: Denies Symptoms Allergies and Home Medications Allergies Coded Allergies: No Known Drug Allergies (Unverified , 01/12/16) Home Medications Doxylamine/Pyridoxine HCl 1 Each Tablet.dr, 2 EACH PO HS Prescribed by: ZOHREH HAYWARD on 12/15/172010 Metronidazole 500 Mg Tablet, 500 MG PO BID Prescribed by: ERIKA LEWIS on 12/16/17 1438 Patient Home Medication List Home Medication List Reviewed: Yes Review of Systems Constitutional: see HPI EENTM: No Symptoms Reported Respiratory: No Symptoms Reported Cardiovascular: No Symptoms Reported Gastrointestinal: See HPI, Abdominal Pain, Nausea, Vomiting Genitourinary: No Symptoms Reported Musculoskeletal: no symptoms reported Skin: no symptoms reported Psychiatric/Neurological: No Symptoms Reported Endocrine: No Symptoms Reported Past Szzsuti-Lanohx-Fqkrvd Hx Patient Social History Alcohol Use: Denies Use Recreational Drug Use: Yes Drug of Choice: THC, FENTANYL, OXYCODONE Type Used: Cigarettes 2nd Hand Smoke Exposure: Yes Recent Foreign Travel: No Contact w/Someone Who Travel: No Recent Infectious Disease Expo: No Recent Hopitalizations: No Immunizations Up To Date Tetanus Booster (TDap): Less than 5yrs PED Vaccines UTD: Yes Date of Pneumonia Vaccine: Nov 12, 2013 Date of Influenza Vaccine: Sep 11, 2015 Seasonal Allergies Seasonal Allergies: No Surgeries History of Surgeries: Yes (LAPAROSCOPY-OVARIAN CYST, ENDOMETRIOSIS; EGD) Surgeries: Abdominal, Appendectomy, Gallbladder Respiratory History of Respiratory Disorde: Yes Respiratory Disorders: Asthma, Pneumonia Currently Using CPAP: No Currently Using BIPAP: No Cardiovascular History of Cardiac Disorders: No Neurological History of Neurological Disord: No Reproductive System Hx Reproductive Disorders: Yes (LT OVARIAN CYST) Sexually Transmitted Disease: No HIV/AIDS: No Female 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, Ovarian Cyst Genitourinary History of Genitourinary Disor: No Gastrointestinal History of Gastrointestinal Di: Yes (CHRONIC ABDOMINAL PAIN, CHRONIC N/V, CANNABIS HYPEREMESIS SYNDROME) Musculoskeletal History of Musculoskeletal Dis: No Endocrine History of Endocrine Disorders: No HEENT History of HEENT Disorders: No Cancer History of Cancer: No Psychosocial History of Psychiatric Problem: Yes ("CYCLIC VOMITING", marijuana abuse) Behavioral Health Disorders: Sleep Difficulties, Anxiety, Depression Integumentary History of Skin or Integumenta: No Blood Transfusions History of Blood Disorders: No Adverse Reaction to a Blood Tr: No Family Medical History Significant Family History: No Pertinent Family Hx Family Medial History: Cancer GPA-DAD SIDE, Onset:Unknown Cataract GMA-DAD SIDE Dementia GPA-DAD SIDE Family history: Arthritis GPA-MOM SIDE Family history: Cardiovascular disease GMA-DAD SIDE (CAD STINTS) GMA-MOM SIDE (ENLARGED HEART DEFIBALATOR AND PACER) History of - respiratory disease GPA-DAD SIDE (EMPHYSEMA, COPD) No Family History of: AIDS Abdominal aortic aneurysm Abdominal aortic aneurysm [place]'s disease [place]'s disease Alcoholism Alcoholism Alzheimer's disease Aphasia Aphasia Arthritis Asthma Cancer of colon Cancer of mouth Cardiovascular disease Cataracts Chest pain Colon cancer Completed stroke Congenital disease Congenital heart disease Congenital heart disease Congestive heart failure Coronary thrombosis Cystic fibrosis Cystic fibrosis Deafness or hearing loss Diabetes mellitus Drug abuse Dysphagia Dysphasia Family history: Allergy Family history: Alzheimer's disease Family history: Asthma Family history: Breast disease Family history: Coronary thrombosis Family history: Diabetes mellitus Family history: Gastrointestinal disease Family history: Glaucoma Family history: Hypertension Family history: Osteoporosis Family history: Thyroid disorder Fibrocystic disease of breast Gastroenteritis Glaucoma Headache Hearing loss Heart disease Hereditary disease History of - anemia History of - disorder History of drug abuse Human immunodeficiency virus (HIV) seropositivity Hypercholesterolemia Hypercholesterolemia Infertile Kidney disease Malignant neoplasm of lung Myocardial infarction Parkinson's disease Prostate cancer Psychotic disorder Seizure disorder Severe allergy Stroke Thyroid disease Tuberculosis Tuberculosis Visual disorder Visual impairment Physical Exam Vital Signs VS - Last 72 Hours, by Label 12/16/17 13:04 Temp 98.0 Pulse 103 Resp 18 B/P (MAP) 143/84 (103) Pulse Ox 97 O2 Delivery Room Air Capillary Refill : Less Than 3 Seconds General Appearance: WD/WN, no apparent distress HEENT: PERRL/EOMI, normal ENT inspection Respiratory: lungs clear, normal breath sounds, no respiratory distress, no accessory muscle use Cardiovascular: regular rate, rhythm, no murmur Gastrointestinal: normal bowel sounds, non tender, tenderness Genital/Rectal: other (pelvic exam done with Toña PERAZA at the bedside. There is no cervical motion tenderness. There is no purulence from the cervix. Cervical os is closed. There is no cervical friability or cervical motion tenderness. No findings to suggest pelvic inflammatory disease.) Extremities: normal range of motion, non-tender Neurologic/Psychiatric: alert, normal mood/affect, oriented x 3 Skin: normal color, warm/dry Progress/Results/Core Measures Results/Orders Lab Results Laboratory Tests Test 12/16/17 13:20 12/16/17 13:43 Range/Units White Blood Count 13.8 H 4.3-11.0 10^3/uL Red Blood Count 4.41 4.35-5.85 10^6/uL Hemoglobin 14.2 11.5-16.0 G/DL Hematocrit 39 35-52 % Mean Corpuscular Volume 88 80-99 FL Mean Corpuscular Hemoglobin 32 25-34 PG Mean Corpuscular Hemoglobin Concent 37 H 32-36 G/DL Red Cell Distribution Width 12.3 10.0-14.5 % Platelet Count 320 130-400 10^3/uL Mean Platelet Volume 9.3 7.4-10.4 FL Neutrophils (%) (Auto) 94 H 42-75 % Lymphocytes (%) (Auto) 5 L 12-44 % Monocytes (%) (Auto) 1 0-12 % Eosinophils (%) (Auto) 0 0-10 % Basophils (%) (Auto) 0 0-10 % Neutrophils # (Auto) 12.9 H 1.8-7.8 X 10^3 Lymphocytes # (Auto) 0.7 L 1.0-4.0 X 10^3 Monocytes # (Auto) 0.2 0.0-1.0 X 10^3 Eosinophils # (Auto) 0.0 0.0-0.3 10^3/uL Basophils # (Auto) 0.0 0.0-0.1 10^3/uL Neutrophils % (Manual) 93 % Lymphocytes % (Manual) 3 % Monocytes % (Manual) 3 % Eosinophils % (Manual) 0 % Basophils % (Manual) 0 % Band Neutrophils 1 % Blood Morphology Comment NORMAL Sodium Level 136 135-145 MMOL/L Potassium Level 3.5 L 3.6-5.0 MMOL/L Chloride Level 104 98-107 MMOL/L Carbon Dioxide Level 24 21-32 MMOL/L Anion Gap 8 5-14 MMOL/L Blood Urea Nitrogen 8 7-18 MG/DL Creatinine 0.58 L 0.60-1.30 MG/DL Estimat Glomerular Filtration Rate > 60 BUN/Creatinine Ratio 14 Glucose Level 125 H 70-105 MG/DL Calcium Level 9.4 8.5-10.1 MG/DL Total Bilirubin 0.8 0.1-1.0 MG/DL Aspartate Amino Transf (AST/SGOT) 13 5-34 U/L Alanine Aminotransferase (ALT/SGPT) 15 0-55 U/L Alkaline Phosphatase 60 40-136 U/L Total Protein 7.1 6.4-8.2 GM/DL Albumin 4.5 3.2-4.5 GM/DL Micro Results Microbiology 12/16/17 Genital Culture, Resulted Pending 12/16/17 Wet Prep - Final, Resulted My Orders Orders - ERIKA LEWIS APRN Cbc With Automated Diff (12/16/17 13:10) Comprehensive Metabolic Panel (12/16/17 13:10) Ua Culture If Indicated (12/16/17 13:10) Drug Screen Stat (Urine) (12/16/17 13:23) Ns Iv 1000 Ml (Sodium Chloride 0.9%) (12/16/17 13:30) Prochlorperazine Injection (Compazine In (12/16/17 13:30) Diphenhydramine Injection (Benadryl Inje (12/16/17 13:30) Manual Differential (12/16/17 13:20) Wet Prep (12/16/17 14:07) Neisseria Gonorrhea Dna (12/16/17 14:07) Chlamydia Dna (12/16/17 14:07) Genital Culture (12/16/17 14:07) Diphenhydramine Injection (Benadryl Inje (12/16/17 15:15) Prochlorperazine Injection (Compazine In (12/16/17 15:15) Medications Given in ED Current Medications Medications Dose Ordered Sig/Dani Route Start Time Stop Time Status Last Admin Dose Admin Diphenhydramine HCl 25 mg ONCE ONCE IVP 12/16/17 13:30 12/16/17 13:31 DC 12/16/17 13:36 25 MG Prochlorperazine Edisylate 5 mg ONCE ONCE IV 12/16/17 13:30 12/16/17 13:31 DC 12/16/17 13:36 5 MG Vital Signs/I&O Vital Sign - Last 12Hours 12/16/17 13:04 Temp 98.0 Pulse 103 Resp 18 B/P (MAP) 143/84 (103) Pulse Ox 97 O2 Delivery Room Air Blood Pressure Mean: 103 Departure Communication (Admissions) Progress Notes Patient states she is unable to urinate for us here. She did just have a urinalysis last night done here. 1508- patient has not vomited during her entire ER stay until she was told she is being discharged. She begins to vomit. Impression Impression: Primary Impression: Non-compliance Additional Impressions: Marijuana abuse Abdominal pain Bacterial vaginosis Disposition: 01 HOME, SELF-CARE Condition: Stable Departure-Patient Inst. Decision time for Depature: 13:26 Referrals: SELFIGNACIO MD (PCP/Family) Primary Care Physician Patient Instructions: Bacterial Vaginosis (DC), Nausea and Vomiting of (DC) Add. Discharge Instructions: 1. As I have told you many times before the marijuana will cause you to become nauseous. You should stop using the opiates as your child will likely be born with an opiate addiction and require detox treatment for this immediately after . You should also stop smoking cigarettes. This will need to low birthweight and additional troubles with delivery such as labor. 2. Take the antibiotics as directed 3. Follow-up with your doctor this week for recheck All discharge instructions reviewed with patient and/or family. Voiced understanding. Scripts Metronidazole (Metronidazole) 500 Mg Tablet 500 MG PO BID, #14 TAB Prov: ERIKA LEWIS APRN 12/16/17 ERIKA LEWIS APRN Dec 16, 2017 13:28
[2017-12-16] MEDS ORDERED: PROCHLORPERAZINE 10 MG/2ML INJ (COMPAZINE) IV ONE ×2 (13:30→15:15)
[2017-12-16] MEDS ORDERED: diphenhydrAMINE 50 MG/ML INJ (BENADRYL) IVP ONE ×2 (13:30→15:15)
[2017-12-16] MEDS ORDERED: NS IV 1000 ML 1,000 ML IV SCH (13:30)
[2017-12-16 13:31] LABS: BASOPHILS % (AUTO) 0 % (0-10); EOSINOPHILS % (AUTO) 0 % (0-10); HEMATOCRIT 39 % (35-52); HEMOGLOBIN 14.2 G/DL (11.5-16.0); LYMPHOCYTES # (AUTO) 0.7 X 10^3 (1.0-4.0); LYMPHOCYTES % (AUTO) 5 % (12-44); MEAN CORPUSCULAR HEMOGLOBIN 32 PG (25-34); MEAN CORPUSCULAR HGB CONC 37 G/DL (32-36); MEAN CORPUSCULAR VOLUME 88 FL (80-99); MEAN PLATELET VOLUME 9.3 FL (7.4-10.4); MONOCYTES # (AUTO) 0.2 X 10^3 (0.0-1.0); MONOCYTES % (AUTO) 1 % (0-12); NEUTROPHILS # (AUTO) 12.9 X 10^3 (1.8-7.8); NEUTROPHILS % (AUTO) 94 % (42-75); PLATELET COUNT 320 10^3/uL (130-400); RED BLOOD COUNT 4.41 10^6/uL (4.35-5.85); RED CELL DISTRIBUTION WIDTH 12.3 % (10.0-14.5); WHITE BLOOD COUNT 13.8 10^3/uL (4.3-11.0)
[2017-12-16 13:51] LABS: ALANINE AMINOTRANSFERASE 15 U/L (0-55); ALBUMIN 4.5 GM/DL (3.2-4.5); ALKALINE PHOSPHATASE 60 U/L (40-136); BILIRUBIN,TOTAL 0.8 MG/DL (0.1-1.0); BUN/CREATININE RATIO 14; CALCIUM 9.4 MG/DL (8.5-10.1); CARBON DIOXIDE 24 MMOL/L (21-32); CHLORIDE 104 MMOL/L (98-107); CREATININE SERUM 0.58 MG/DL (0.60-1.30); GFR ESTIMATED > 60; GLUCOSE 125 MG/DL (70-105); POTASSIUM 3.5 MMOL/L (3.6-5.0); SODIUM 136 MMOL/L (135-145); TOTAL PROTEIN 7.1 GM/DL (6.4-8.2)
[2017-12-16 13:52] LABS: BAND NEUTROPHILS 1 %; NEUTROPHILS % (MANUAL) 93 %
[2017-12-16 13:53] LABS: BASOPHILS % (MANUAL) 0 %; EOSINOPHILS % (MANUAL) 0 %; LYMPHOCYTES % (MANUAL) 3 %; MONOCYTES % (MANUAL) 3 %; RBC MORPH NORMAL
[2017-12-16] MEDS ORDERED: METR500T21 PO (14:38)
[2017-12-16 15:14] VITALS: BP 132/87
== END 2017-12-16 15:14 | disposition home or self-care (01) ==
LOC: EDUNIT# 12:21 → ER 12:22
DX: O23.591 Infection of other part of genital tract in pregnancy, first trimester (principal); B96.89 Other specified bacterial agents as the cause of diseases classified elsewhere; O99.321 Drug use complicating pregnancy, first trimester; F12.10 Cannabis abuse, uncomplicated; O99.511 Diseases of the respiratory system complicating pregnancy, first trimester; J45.909 Unspecified asthma, uncomplicated; O99.341 Other mental disorders complicating pregnancy, first trimester; F41.9 Anxiety disorder, unspecified; F32.9 Major depressive disorder, single episode, unspecified; F19.10 Other psychoactive substance abuse, uncomplicated; Z87.01 Personal history of pneumonia (recurrent); Z77.22 Contact with and (suspected) exposure to environmental tobacco smoke (acute) (chronic); Z82.49 Family history of ischemic heart disease and other diseases of the circulatory system; Z90.49 Acquired absence of other specified parts of digestive tract; Z87.448 Personal history of other diseases of urinary system; Z91.14 Patient's other noncompliance with medication regimen; Z3A.01 Less than 8 weeks gestation of pregnancy
CPT/HCPCS: 36415; 80053; 85007; 85027; 87070; 87210; 87491; 87591; 96374; 96375; 96376; 99284

== ENCOUNTER 2017-12-17 10:05 | Emergency (ER) | payer MEDICAID ==
[~2017-12-17 10:05] MED LIST changes: +METR500T21 PO
--- OUTSIDE RECORDS SUMMARY | 2017-12-17 10:12 | XMS REPORT | CCD ---
Author Author Auto Generated Organization [facility] Address Unknown Phone Unavailable Care Team Providers Care Golf Ball Trimmer Name Role Phone Rosetta Pillai PP [phone] No, Referring RP Unavailable Endy Avila Trixie CP [phone] Allergies, Adverse Reactions, Alerts Substance Reaction Status No Known Adverse Reactions Active Problem List Condition Effective Dates Status Anxiety Active Depression Active Medications Medication Instructions Start Date End Date Status fentaNYL 12/26/13 17:18:00 CDT, 12/26/2013 12/26/2013 Completed [id number], Routine, 25 mcg=0.5 mL, IV Push, 1 time only, PRN Pain, SevereAdminister by slow IV push over 3-5 minutes. This medication requires an independent double check by a licensed provider. amitriptyline 25 mg 25 mg=1 tablet, PO, HS (bedtime), # 12/26/2013 Ordered oral tablet 30 tablet, Refill(s) 3, Pharmacy: [facility] [id number] Coenzyme Q10 100 mg 100 mg=1 capsule, PO, BID, # 60 12/26/2013 Ordered oral capsule capsule, Refill(s) 3, Pharmacy: [facility] [id number] Carafate 1 g/10 mL 1 gm=10 mL, PO, q6hr, # 300 mL, 12/26/2013 Ordered oral suspension Refill(s) 0, Pharmacy: [facility] [id number] omeprazole 20 mg 20 mg=1 capsule, PO, BID, # 60 12/26/2013 Ordered oral delayed release capsule, Refill(s) 0, Pharmacy: capsule [facility] [id number] Phenergan 25 mg oral 25 mg=1 tablet, PO, q4hr, PRN 12/26/2013 Ordered tablet Nausea/Vomiting, # 30 tablet, Refill(s) 0, Pharmacy: [facility] [id number] Tylenol Extra 500 mg=1 tablet, PO, q4hr, PRN 12/26/2013 Ordered Strength 500 mg oral Pain, Mild, Moderate and Severe, tablet Refill(s) 0 Vital Signs Most recent to oldest [Reference Range]: 1 2 3 Temperature Celsius [36-38.4 DegC] 36.5 DegC (12/26/2013 18:00:00) 36.8 DegC (12/26/2013 17:00:00) 36.5 DegC (12/26/2013 16:39:00) Temperature Route Axillary (12/26/2013 18:00:00) Oral (12/26/2013 17:00:00) Core/Temporal (12/26/2013 16:39:00) Heart Rate [50-120 bpm] 88 bpm (12/26/2013 18:00:00) 76 bpm (12/26/2013 17:00:00) 80 bpm (12/26/2013 16:39:00) Heart Rate Monitored 67 bpm bpm (12/26/2013 16:20:00) 87 bpm bpm (12/26/2013 16:15:00) 96 bpm bpm (12/26/2013 16:10:00) Respiratory Rate [10-40 BR/min] 16 BR/min (12/26/2013 18:00:00) 16 BR/min (12/26/2013 17:00:00) 16 BR/min (12/26/2013 16:39:00) Systolic Blood Pressure Cuff Monitored [90-135 mmHg] 134 mmHg (12/26/2013 18:00:00) 131 mmHg (12/26/2013 17:00:00) 101 mmHg (12/26/2013 16:39:00) Diastolic Blood Pressure Cuff Monitored [45-90 mmHg] 81 mmHg (12/26/2013 18:00:00) 89 mmHg (12/26/2013 17:00:00) 63 mmHg (12/26/2013 16:39:00) Mean Arterial Pressure Cuff Monitored 73 mmHg mmHg (12/26/2013 16:25:00) 73 mmHg mmHg (12/26/2013 16:20:00) 80 mmHg mmHg (12/26/2013 16:15:00) NBP Cuff Sizes Adult (12/26/2013 18:00:00) Adult (12/26/2013 17:00:00) Small Adult (12/26/2013 08:00:00) NBP Extremity Arm, right (12/26/2013 18:00:00) Arm, right (12/26/2013 17:00:00) Arm, right (12/26/2013 08:00:00) NBP Position Sitting (12/26/2013 18:00:00) Lying (12/26/2013 17:00:00) Sitting (12/26/2013 14:00:00) NBP Activity Restless (12/26/2013 18:00:00) Crying (12/26/2013 17:00:00) Sleeping (12/26/2013 16:39:00) SpO2 [90-101 %] 97 % (12/26/2013 17:00:00) 97 % (12/26/2013 16:39:00) 99 % (12/26/2013 16:24:00) Fraction of Inspired Oxygen 21 % (12/26/2013 08:00:00) 21 % (12/25/2013 21:00:00) 21 % (12/24/2013 21:00:00) Oxygen Flow Rate 15 L/min (12/26/2013 16:24:00) Oxygen Delivery Device Blow by (12/26/2013 16:24:00) End Tidal CO2 43 mmHg mmHg (12/26/2013 16:20:00) 48 mmHg mmHg (12/26/2013 16:15:00) 52 mmHg mmHg (12/26/2013 16:10:00) Total Pain Calculation 0 (12/26/2013 18:33:00) 0 (12/26/2013 10:16:00) 6 (12/25/2013 21:00:00) Vital Signs Comment Other: Returned to unit (12/22/2013 14:00:00) Patient off unit, Other: radiology (12/22/2013 13:00:00)
--- OUTSIDE RECORDS SUMMARY | 2017-12-17 10:12 | XMS REPORT | CCD ---
Author Author Auto Generated Organization [facility] Address Unknown Phone Unavailable Care Team Providers Care Sales Consultant Insurance Name Role Phone Rosetta Pillai PP [phone] NilesMichele CP [phone] Provider, Unknown RP [phone] Allergies, Adverse Reactions, Alerts Substance Reaction Status No Known Adverse Reactions Active Problem List Condition Effective Dates Status Anxiety Active Depression Active Medications Medication Instructions Start Date End Date Status amitriptyline 25 mg 25 mg=1 tablet, PO, HS (bedtime), # 12/26/2013 Ordered oral tablet 30 tablet, Refill(s) 3, Pharmacy: [facility] [id number] Coenzyme Q10 100 mg 100 mg=1 capsule, PO, BID, # 60 12/26/2013 Ordered oral capsule capsule, Refill(s) 3, Pharmacy: [facility] [id number] Carafate 1 g/10 mL 1 gm=10 mL, PO, q6hr, # 300 mL, 12/26/2013 Ordered oral suspension Refill(s) 0, Pharmacy: [facility] [id number] omeprazole 20 mg 20 mg=1 capsule, PO, BID, # 60 12/26/2013 Ordered oral delayed release capsule, Refill(s) 0, Pharmacy: [facility] [address]229 Phenergan 25 mg oral 25 mg=1 tablet, PO, q4hr, PRN 12/26/2013 Ordered tablet Nausea/Vomiting, # 30 tablet, Refill(s) 0, Pharmacy: [facility] [id number] Tylenol Extra 500 mg=1 tablet, PO, q4hr, PRN 12/26/2013 Ordered Strength 500 mg oral Pain, Mild, Moderate and Severe, tablet Refill(s) 0
--- OUTSIDE RECORDS SUMMARY | 2017-12-17 10:12 | XMS REPORT | Clinical Summary ---
Author Author [facility] Organization [facility] Address Unknown Phone Unavailable Care Team Providers Care Gas Well Drilling Manager Name Role Phone Emergency, Nurse RN Unavailable Unavailable Reza Pillai MD PCP April Faust MD Unavailable Armida Trevino RN Unavailable Unavailable Jessy Love DO Unavailable Emil Overton MD Unavailable Unavailable Source Comments Some departments are not documenting in the electronic medical record. If you do not see the information that you expected, contact Release of Information in the Health Information Management department at [phone] for further assistance in locating additional records.[facility] Allergies No Known Allergies Current Medications Prescription Sig. Disp. Refills Start End Date Status Date senna/docusate Take 1 Tab by mouth twice 05/01/20 Active (SENOKOT-S) 8.6/50 mg daily. 15 tablet magnesium citrate oral Take 296 mL by mouth as 296 mL 0 05/01/20 Active solution Needed. Use as needed for 15 constipation nystatin (MYCOSTATIN) Take 5 mL by mouth four 1 Bottle 1 05/01/20 Active 100,000 units/mL oral times daily. Swish and 15 suspension swallow HYDROcodone/acetaminophen Take 1 Tab by mouth every Active (NORCO; VICODIN) 5-325 mg 4 hours as needed for tablet Pain prochlorperazine Insert or Apply to Active (COMPAZINE) 25 mg rectal rectal area as directed suppository every 12 hours as needed for Nausea. amitriptyline (ELAVIL) 50 Take 1 Tab by mouth at 90 Tab 3 09/26/20 Active mg tablet bedtime daily. 15 prochlorperazine Take 1 Tab by mouth every 90 Tab 1 09/26/20 Active (COMPAZINE) 10 mg tablet 6 hours as needed. 15 prochlorperazine Insert or Apply 1 40 0 09/26/20 Active (COMPAZINE) 25 mg rectal Suppository to rectal Suppository 15 suppository area as directed every 8 hours. Active Problems Problem Noted Date Cyclic vomiting syndrome 09/26/2015 Overview: Initial diagnosis in [id number] at [facility] Intractable nausea and vomiting 04/28/2015 Hyponatremia 04/28/2015 Hypokalemia 04/28/2015 Hypochloremia 04/28/2015 Abdominal pain 04/28/2015 Constipation 04/28/2015 Prolonged Q-T interval on ECG 04/28/2015 Family History Medical History Relation Name Comments Migraines Father Cystitis Sister Kidney Stones Sister Seizures Sister Relation Name Status Comments Brother Alive Brother Alive Brother Alive Father Alive Mother Alive Sister Alive Social History Tobacco Use Types Packs/Day Years Used Date Never Smoker Smokeless Tobacco: Never Used Alcohol Use Drinks/Week oz/Week Comments No 0 Standard 0.0 drinks or equivalent Sex Assigned at Date Recorded Not on file Last Filed Vital Signs Vital Sign Reading Time Taken Blood Pressure 135/87 09/26/2015 1:02 PM [facility] Pulse 106 09/26/2015 1:02 PM [facility] Temperature 36.3 C (97.3 F) 09/26/2015 1:02 PM [facility] Respiratory Rate 16 09/26/2015 1:02 PM [facility] Oxygen Saturation 98% 05/01/2015 11:59 AM CDT Inhaled Oxygen - - Concentration Weight 54.4 kg (120 lb) 09/26/2015 1:02 PM [facility] Height 157.5 cm (5' 2") 09/26/2015 1:02 PM [facility] Body Mass Index 21.95 09/26/2015 1:02 PM [facility] Plan of Treatment Health Maintenance Due Date Last Done Comments PHYSICAL (COMPREHENSIVE) 2003 EXAM HPV VACCINES (1 of 3 - 2007 Female 3 Dose Series) PERTUSSIS VACCINE 2007 HIV SCREENING 2011 TETANUS VACCINE 2013 CERVICAL CANCER SCREENING 2017 INFLUENZA VACCINE 07/12/2018 Results Not on filefrom Last 3 Months
--- OUTSIDE RECORDS SUMMARY | 2017-12-17 10:12 | XMS REPORT | Continuity of Care Document ---
Author Author [employer] Organization [place] Address Unknown Phone Unavailable Care Team Providers Care Equine Vet Name Role Phone [employer] Unavailable Unavailable Problems Problem Status Onset Date Classification Date Reported Comments Source Anxiety (finding) Active Problem 03/26/2014 [facility] Depression - motion (qualifier value) Active Problem [facility] Medications Medication Details Route Status Patient Instructions Ordering Provider Order Date Source amitriptyline 25 mg oral tablet 25 mg=1 tablet, PO, HS (bedtime), # 30 tablet, Refill(s) 3, Pharmacy: [facility] [address] Coenzyme Q10 100 mg oral capsule 100 mg=1 capsule, PO , BID, # 60 capsule, Refill(s) 3, Pharmacy: [address] Carafate 1 g/10 mL oral suspension 1 gm=10 mL, PO, q6hr, # 300 mL, Refill(s) 0, Pharmacy: [address] omeprazole 20 mg oral delayed release capsule 20 mg=1 capsule, PO, BID, # 60 capsule, Refill(s) 0, Pharmacy: [address] Phenergan 25 mg oral tablet 25 mg=1 tablet, PO, q4hr, PRN Nausea/Vomiting, # 30 tablet, Refill(s) 0, Pharmacy: [address] Tylenol Extra Strength 500 mg oral tablet 500 mg=1 tablet, PO, q4hr, PRN Pain, Mild, Moderate and Severe, Refill(s) 0 [facility] fentaNYL 12/26/13 17:18:00 CDT, [id number], Routine , 25 mcg=0.5 mL, IV Push, 1 time only, PRN Pain, SevereAdminister by slow IV push over 3-5 minutes. This medication requires an independent double check by a licensed provider. Inactive [facility] Allergies, Adverse Reactions, Alerts Immunizations Results Order Name Results Value Reference Range Date Interpretation Comments Source AA Qnt Phosphoserine 2 mcmol/ L 1 - 30 12/30/2013 [facility] AA Qnt Taurine 58 mcmol/L 10 - 170 12/30/2013 [facility] AA Qnt Phosphoethanolamine 0 mcmol/L 0 - 69 12/30/2013 [facility] AA Qnt Aspartic Acid 28 mcmol /L 6 - 47 12/30/2013 [facility] AA Qnt Hydroxy Proline 11 mcmol/L 0 - 45 12/30/2013 [facility] AA Qnt Threonine 85 mcmol/L 35 - 226 12/30/2013 [facility] AA Qnt Serine 128 mcmol/L 69 - 187 12/30/2013 [facility] AA Qnt Asparagine 34 mcmol/L 23 - 112 12/30/2013 [facility] AA Qnt Glutamic Acid 58 mcmol /L 5 - 150 12/30/2013 [facility] AA Qnt Glutamine 392 mcmol/L 254 - 823 12/30/2013 [facility] AA Qnt Sarcosine 0 mcmol/L 0 - 9 12/30/2013 [facility] AA Qnt Proline 125 mcmol/L 59 - 369 12/30/2013 [facility] AA Qnt Glycine 285 mcmol/L 127 - 341 12/30/2013 This test was developed and its performance characteristics determined by [facility]. It has not been cleared or approved by the [place]. S. Food and Drug Administration. The test does not require FDA approval. Additional information regarding test use will be provided upon request. [facility] AA Qnt Alanine 267 mcmol/L 152 - 547 12/30/2013 NA This test was developed and its performance characteristics determined by [facility]. It has not been cleared or approved by the . S. Food and Drug Administration. The test does not require FDA approval. Additional information regarding test use will be provided upon request. [facility] AA Qnt Citrulline 10 mcmol/L 1 - 46 12/30/2013 [facility] AA Qnt Alpha Amino Butyric Acid 22 mcmol/L 4 - 31 2013 [facility] AA Qnt Valine 146 mcmol/L 74 - 321 12/30/2013 [facility] AA Qnt Cystine 27 mcmol/L 5 - 45 12/30/2013 [facility] AA Qnt Methionine 23 mcmol/L 7 - 47 12/30/2013 [facility] AA Qnt Cystathionine 0 mcmol/ L 0 - 3 12/30/2013 [facility] AA Qnt Isoleucine 36 mcmol/L 22 - 107 12/30/2013 [facility] AA Qnt Leucine 81 mcmol/L 49 - 216 12/30/2013 [facility] AA Qnt Tyrosine 52 mcmol/L 24 - 115 12/30/2013 [facility] AA Qnt Phenylalanine 59 mcmol /L 26 - 91 12/30/2013 This test was developed and its performance characteristics determined by [facility]. It has not been cleared or approved by the [place] S. Food and Drug Administration. The test does not require FDA approval. Additional information regarding test use will be provided upon request. [facility] AA Qnt B-Alanine 0 mcmol/L 0 - 7 12/30/2013 [facility] AA Qnt Homocystine 0 mcmol/L 0 - 0 12/30/2013 [facility] AA Qnt Ornithine 55 mcmol/L 10 - 163 12/30/2013 [facility] AA Qnt Lysine 122 mcmol/L 48 - 284 12/30/2013 [facility] AA Qnt Histidine 50 mcmol/L 41 - 125 12/30/2013 [facility] AA Qnt Arginine 52 mcmol/L 10 - 140 12/30/2013 [facility] AA Qnt Amino Acid Interp Normal plasma amino acids profile. 12/30/2013 [facility] AA Qnt Amino Acid Qnt Method Comment This test was developed and its performance characteristics determined 12/30/2013 [facility] Creat UTx Creatinine Ur 78.8 mg/dL 12/30/2013 [facility] Org AcidU Organic Acids Ur Increased acetoacetic and 3-hydroxybutyric acids indicate ketosis. No other significant organic acid abnormalities seen. 12/30/2013 NA SIGNED BY: Kathy Henriquez M.D., Ph.D., Clinical and Biochemical Open Shank Coverer Jose D Richmond M.D., Biochemical Open Shank Coverer Husam Chapman, Ph.D. [facility], Director Clinical Chemistry labs This test was developed and its performance characteristics determined by [facility]. It has not been cleared or approved by the [place]. S. Food and Drug Administration. The test does not require FDA approval. Additional information regarding test use will be provided upon request. [facility] P C0, Free Carnitine 39.69 nmol/mL 19.67 - 102.55 12/30/2013 [facility] P C2, Acetylcarnitine 16.73 nmol/mL 2.60 - 39.23 12/30/2013 [facility] P C3, Propionylcarnitine 0.19 nmol/mL 0.15 - 1.06 12/30/2013 [facility] P C4, Isobutyryl / Butyrylcarnitine 0.14 nmol/mL 0.09 - 0.69 12/30/2013 [facility] P C5:1, Tiglylcarnitine 0.02 nmol/mL 0.02 - 0.09 12/30/2013 [facility] P C5, Isovaleryl/2-methylbutyryl/Pivaloyl 0.04 nmol/mL 0.04 - 0.31 12/30/2013 [facility] P C4-OH, 0-KW-lwakoigoduvsanls 0.07 nmol/mL 0.01 - 0.30 12/30/2013 [facility] P C6, Hexonylcarnitine 0.07 nmol/mL 0.02 - 0.18 12/30/2013 [facility] P C5-OH,7-OI-kaiawifjgg/2-BL9-8-OH-butyryl 0.04 nmol/mL 0.02 - 0.09 12/30/2013 [facility] P C6-OH, 9-ET-bnrrlrdljdrvywuhm 0.04 nmol/mL 0.02 - 0.11 12/30/2013 [facility] P C8:1, Octenoylcarnitine 0.12 nmol/mL 0.08 - 1.09 12/30/2013 [facility] P C8, Octanoylcarnitine 0.17 nmol/mL 0.04 - 0.45 12/30/2013 [facility] P C3-DC, Malonylcarnitine 0.06 nmol/mL 0.02 - 0.18 12/30/2013 [facility] P C10:1, Decenolycarnitine 0.13 nmol/mL 0.04 - 0.37 12/30/2013 [facility] P C10, Decanoylcarnitine 0.23 nmol/mL 0.03 - 0.54 12/30/2013 [facility] P C4-DC, Methylmalonylcarnitine 0.03 nmol/mL 0.03 - 0.14 12/30/2013 [facility] P C5-DC, Glutarylcarnitine 0.05 nmol/mL 0.03 - 0.17 12/30/2013 [facility] P C12:1, Dodecenoylcarnitine 0.08 nmol/mL 0.01 - 0.22 12/30/2013 [facility] P C12, Dodecanoylcarnitine 0.08 nmol/mL 0.02 - 0.30 12/30/2013 [facility] P C6-DC, 0-wokaxn-jovkvmngrfgwcxirw 0.03 nmol/mL 0.02 - 0.22 12/30/2013 [facility] P C12-OH, 2-NG-davtiwegqodicejsra 0.01 nmol/mL 0.01 - 0.06 12/30/2013 [facility] P C14:2, Tetradecadienoylcarntine 0.08 nmol/mL 0.01 - 0.19 12/30/2013 [facility] P C14:1, Tetradecenoylcarnitine 0.16 nmol/mL 0.02 - 0.29 12/30/2013 [facility] P C14, Tetradecanoylcarnitine 0.05 nmol/mL 0.01 - 0.18 12/30/2013 [facility] P C14:1-OH, 6-YB-rlmocxebphntdahtkhwoeq 0.02 nmol/mL 0.01 - 0.07 12/30/2013 [facility] P C14-OH, 5-DW-xlgliqvaptdyenobngfwut 0.01 nmol/mL 0.01 - 0.06 12/30/2013 [facility] P C16:1, Hexadecenoylcarnitine 0.06 nmol/mL 0.01 - 0.14 12/30/2013 [facility] P C16, Hexadecanoylcarnitine 0.11 nmol/mL 0.03 - 0.30 12/30/2013 [facility] P C16:1-OH, 4-VA-owdqkryszegnuhywdqyxo 0.02 nmol/mL 0.01 - 0.07 12/30/2013 [facility] P C16-OH, 2-BO-ipuqpxfhqnrmyqdgygkul 0.02 nmol/mL 0.01 - 0.06 12/30/2013 [facility] P C18:2, Linoleylcarnitine 0.10 nmol/mL 0.02 - 0.20 12/30/2013 [facility] P C18:1, Oleylcarnitine 0.18 nmol/mL 0.03 - 0.34 12/30/2013 [facility] P C18, Stearoylcarnitine 0.06 nmol/mL 0.02 - 0.10 12/30/2013 [facility] P C18:2-OH, 3-XE-kftqyenqjlvyblsel 0.01 nmol/mL 0.01 - 0.04 12/30/2013 [facility] P C18:1-OH, 3-JF-jmmtttxetagsya 0.02 nmol/mL 0.00 - 0.04 12/30/2013 [facility] P C18-OH, 5-VT-fxngqwluvrnogecpj 0.01 nmol/mL 0.00 - 0.03 12/30/2013 [facility] P Acylcarnitine Interpretation Normal plasma acylcarnitine profile. 12/30/2013 [facility] P Acylcarnitine Method Comment This test was developed and its performance characteristics determined 12/30/2013 [facility] Vital Signs Vital Sign Value Date Comments Source Total Pain Calculation 0 [facility] NBP Cuff Sizes Adult
(12/26/2013 18:00:00) <sup> </sup> 12/26/2013 [facility] NBP Position Sitting
(12/26/2013 18:00:00) <sup> </sup> 12/26/2013 [facility] NBP Extremity Arm, right
(12/26/2013 18:00:00) < sup> </sup> 12/26/2013 [facility] NBP Activity Restless
(12/26/2013 18:00:00) <sup > </sup> 12/26/2013 [facility] Diastolic Blood Pressure Cuff Monitored 81 mm[Hg] 12/26/2013 [facility] Systolic Blood Pressure Cuff Monitored 134 mm[Hg] 12/26/2013 [facility] Heart Rate 88 bpm 12/26/2013 [facility] Respiratory Rate 16 BR/min [facility] Temperature Route Axillary
(12/26/2013 18:00:00) <sup> </sup> 12/26/2013 [facility] Temperature Celsius 36.5 Jessica 12/26/2013 [facility] SpO2 97 % 12/26/2013 [facility] NBP Position Lying
(12/26/2013 17:00:00) <sup> </ sup> 12/26/2013 [facility] NBP Cuff Sizes Adult
(12/26/2013 17:00:00) <sup> </sup> 12/26/2013 [facility] Systolic Blood Pressure Cuff Monitored 131 mm[Hg] 12/26/2013 [facility] NBP Extremity Arm, right
(12/26/2013 17:00:00) < sup> </sup> 12/26/2013 [facility] Diastolic Blood Pressure Cuff Monitored 89 mm[Hg] 12/26/2013 [facility] NBP Activity Crying
(12/26/2013 17:00:00) <sup> < /sup> 12/26/2013 [facility] Respiratory Rate 16 BR/min [facility] Temperature Celsius 36.8 Jessica 12/26/2013 [facility] Heart Rate 76 bpm 12/26/2013 [facility] Temperature Route Oral
(12/26/2013 17:00:00) <sup > </sup> 12/26/2013 [facility] Systolic Blood Pressure Cuff Monitored 101 mm[Hg] 12/26/2013 [facility] Diastolic Blood Pressure Cuff Monitored 63 mm[Hg] 12/26/2013 [facility] NBP Activity Sleeping
(12/26/2013 16:39:00) <sup > </sup> 12/26/2013 [facility] SpO2 97 % 12/26/2013 [facility] Respiratory Rate 16 BR/min [facility] Heart Rate 80 bpm 12/26/2013 [facility] Temperature Celsius 36.5 Jessica 12/26/2013 [facility] Temperature Route Core/Temporal
(12/26/2013 16:39 :00) <sup> </sup> 12/26/2013 [facility] Mean Arterial Pressure Cuff Monitored 73 mm[Hg] 12/26/2013 [facility] Oxygen Delivery Device Blow by
(12/26/2013 16:24: 00) <sup> </sup> 12/26/2013 [facility] Oxygen Flow Rate 15 L/min [facility] SpO2 99 % 12/26/2013 [facility] Heart Rate Monitored 67 bpm 12/26/2013 [facility] Mean Arterial Pressure Cuff Monitored 73 mm[Hg] 12/26/2013 [facility] End Tidal CO2 43 mm[Hg] 12/26 [facility] Heart Rate Monitored 87 bpm 12/26/2013 [facility] Mean Arterial Pressure Cuff Monitored 80 mm[Hg] 12/26/2013 [facility] End Tidal CO2 48 mm[Hg] 12/26 [facility] Heart Rate Monitored 96 bpm 12/26/2013 [facility] End Tidal CO2 52 mm[Hg] 12/26 [facility] NBP Position Sitting
(12/26/2013 14:00:00) <sup> </sup> 12/26/2013 [facility] Total Pain Calculation 0 [facility] Fraction of Inspired Oxygen 21 % 12/26/2013 [facility] NBP Cuff Sizes Small Adult
(12/26/2013 08:00:00) <sup> </sup> 12/26/2013 [facility] NBP Extremity Arm, right
(12/26/2013 08:00:00) < sup> </sup> 12/26/2013 [facility] Fraction of Inspired Oxygen 21 % 12/26/2013 [facility] Total Pain Calculation 6 [facility] Fraction of Inspired Oxygen 21 % 12/25/2013 [facility] Vital Signs Comment Other: Returned to unit 12/22/2013 [facility] Encounters Location Location Details Encounter Type Encounter Number Reason For Visit Attending Provider ADM Date DC Date Status Source [facility] [place] [id number] intractible vomiting Endy Avila 12/21/2013 12/26/2013 Active [facility] Procedures Plan of Care Social History Assessment and Plan Family History Advance Directives Functional Status
--- OUTSIDE RECORDS SUMMARY | 2017-12-17 10:13 | XMS REPORT ---
Author SANTOS Zabala [facility] eClinicalWorks Address Unknown Phone Unavailable Care Team Providers Care Doctor Of Podiatric Medicine Name Role Phone SANTOS MARINELLI Unavailable Allergies No Known Allergies Problems Problem Type Condition Code Onset Dates Condition Status Problem Abdominal pain R10.9 Active Problem Cyclic vomiting syndrome G43.A0 Active Problem Dysmenorrhea N94.6 Active Problem Anxiety disorder, unspecified F41.9 Active Problem Dysuria R30.0 Active Problem Drug abuse and dependence F19.20 Active Problem Depressive disorder, not elsewhere classified F32.9 Active Medications No Known Medications Results No Known Results Summary Purpose eClinicalWorks Submission
--- OUTSIDE RECORDS SUMMARY | 2017-12-17 10:14 | XMS REPORT ---
Author Author JASON LOPEZ [facility] eClinicalWorks Address Unknown Phone Unavailable Care Team Providers Care Welder Apprentice Name Role Phone JASON LOPEZ CP Unavailable Allergies, Adverse Reactions, Alerts Substance Reaction Event Type N.K.D.A. Info Not Available Non Drug Allergy Problems Problem Type Condition Code Onset Dates Condition Status Assessment Cyclic vomiting syndrome G43.A0 Active Problem Abdominal pain R10.9 Active Problem Cyclic vomiting syndrome G43.A0 Active Problem Dysmenorrhea N94.6 Active Problem Anxiety disorder, unspecified F41.9 Active Problem Dysuria R30.0 Active Problem Drug abuse and dependence F19.20 Active Problem Depressive disorder, not elsewhere classified F32.9 Active Medications Medication Code System Code Instructions Start Date End Date Status Dosage Amitriptyline HCl [facility] [address]-17 75 MG Orally Once a day at hs Aug 17, 2015 1 tablet Promethazine HCl [facility] [address]-14 25 MG Orally every 6 h prn nausea Jul 1 Ortho-Cyclen (28) [facility] [address]-72 0.25-35 MG-MCG Orally Once a day May 1 tablet Procedures Procedure Coding System Code Date Office Visit, Est Pt., Level 2 CPT-4 92909 Jul 18, 2016 Vital Signs Date/Time: Jul 18, 2016 Cardiac Monitoring Heart Rate 68 bpm Weight 124.4 lbs Height 63 in Wt Percentile 43.6 % BMI 22.03 Index Blood Pressure Diastolic 70 mmHg Blood Pressure Systolic 100 mmHg BMIPercentile 54.42 % Results No Known Results Summary Purpose eClinicalWorks Submission
--- OUTSIDE RECORDS SUMMARY | 2017-12-17 10:14 | XMS REPORT ---
Author Author SANTOS MARINELLI [facility] eClinicalWorks Address Unknown Phone Unavailable Care Team Providers Care Hospital Pharmacist Name Role Phone SANTOS MARINELLI CP Unavailable Allergies No Known Allergies Problems Problem Type Condition ICD-9 Code Onset Dates Condition Status Problem Nausea alone 787.02 Active Problem Other general counseling and advice for contraceptive management V25.09 Active Problem Unspecified myalgia and myositis 729.1 Active Problem Cyclic vomiting syndrome 536.2 Active Problem Counseling on other sexually transmitted diseases V65.45 Active Problem Insomnia 780.52 Active Problem Cyclical vomiting 536.2 Active Problem examination or test, negative result V72.41 Active Problem Absence of menstruation 626.0 Active Problem Anxiety state, unspecified 300.00 Active Problem Problems related to high-risk sexual behavior V69.2 Active Problem Abdominal pain, unspecified site 789.00 Active Problem Abdominal pain, epigastric 789.06 Active Problem Screening examination for venereal disease V74.5 Active Problem General counseling for initiation of other contraceptive measures V25.02 Active Problem Screening examination for pulmonary tuberculosis V74.1 Active Problem Sprain and strain of tibiofibular (ligament) 845.03 Active Problem Vomiting alone 787.03 Active Problem Abdominal pain, generalized 789.07 Active Problem Depressive disorder, not elsewhere classified 311 Active Problem Irritable bowel syndrome 564.1 Active Medications No Known Medications Results No Known Results Summary Purpose eClinicalWorks Submission
--- OUTSIDE RECORDS SUMMARY | 2017-12-17 10:14 | XMS REPORT ---
Author Author SANTOS MARINELLI [facility] eClinicalWorks Address Unknown Phone Unavailable Care Team Providers Care Uncrater Name Role Phone SANTOS MARINELLI CP Unavailable Allergies, Adverse Reactions, Alerts Substance Reaction Event Type N.K.D.A. Info Not Available Non Drug Allergy Problems Problem Type Condition Code Onset Dates Condition Status Assessment Drug abuse and dependence F19.20 Active Problem Other general counseling and advice for contraceptive management V25.09 Active Assessment Cyclic vomiting syndrome G43.A0 Active Problem Absence of menstruation 626.0 Active Problem Counseling on other sexually transmitted diseases V65.45 Active Problem examination or test, negative result V72.41 Active Problem Insomnia 780.52 Active Problem Problems related to high-risk sexual behavior V69.2 Active Problem Drug abuse and dependence F19.20 Active Problem Depressive disorder, not elsewhere classified F32.9 Active Problem Abdominal pain, unspecified site 789.00 Active Problem General counseling for initiation of other contraceptive measures V25.02 Active Problem Cyclic vomiting syndrome G43.A0 Active Problem Screening examination for venereal disease V74.5 Active Problem Cyclical vomiting 536.2 Active Problem Cyclic vomiting syndrome 536.2 Active Problem Anxiety disorder, unspecified F41.9 Active Problem Dysuria R30.0 Active Problem Screening examination for pulmonary tuberculosis V74.1 Active Problem Sprain and strain of tibiofibular (ligament) 845.03 Active Problem Abdominal pain, epigastric 789.06 Active Problem Vomiting alone 787.03 Active Problem Nausea alone 787.02 Active Problem Unspecified myalgia and myositis 729.1 Active Problem Abdominal pain, generalized 789.07 Active Problem Irritable bowel syndrome 564.1 Active Medications Medication Code System Code Instructions Start Date End Date Status Dosage Pantoprazole Sodium [facility] [address]-56 20 MG Orally Once a day Aug 17, 2015 2 tablets Potassium Chloride [facility] [address]-86 10 MEQ Orally Twice a day 1 capsule Tramadol HCl [facility] [address]-45 50 MG Orally every 6 hrs 1 tablet as needed Amitriptyline HCl [facility] [address]-40 75 MG Orally Once a day at hs Aug 17, 2015 1 tablet Famotidine [facility] [address]-32 20 MG Orally Twice a day 1 tablet Procedures Procedure Coding System Code Date Office Visit, Est Pt., Level 3 CPT-4 71665 Aug 23, 2015 Vital Signs Date/Time: Aug 23, 2015 Temperature 97.4 F Weight 134 lbs Height 63 in BMI 23.73 Index Blood Pressure Diastolic 74 mmHg Blood Pressure Systolic 118 mmHg Cardiac Monitoring Heart Rate 96 bpm BMIPercentile 72.77 % Wt Percentile 64.9 % Results No Known Results Summary Purpose eClinicalWorks Submission
--- OUTSIDE RECORDS SUMMARY | 2017-12-17 10:14 | XMS REPORT ---
Author Author BRIANNA ARIAS Organization eClinicalWorks Address Unknown Phone Unavailable Care Team Providers Care Public Health Staff Nurse Name Role Phone BRIANNA ARIAS CP Unavailable Allergies No Known Allergies Problems Problem Type Condition Code Onset Dates Condition Status Problem Other general counseling and advice for contraceptive management V25.09 Active Problem examination or test, negative result V72.41 Active Problem Absence of menstruation 626.0 Active Problem Anxiety disorder, unspecified F41.9 Active Problem Screening examination for venereal disease V74.5 Active Problem Dysuria R30.0 Active Problem Counseling on other sexually transmitted diseases V65.45 Active Assessment Depressive disorder, not elsewhere classified F32.9 Active Problem Depressive disorder, not elsewhere classified F32.9 Active Problem Insomnia 780.52 Active Problem Problems related to high-risk sexual behavior V69.2 Active Problem Cyclical vomiting 536.2 Active Problem Cyclic vomiting syndrome 536.2 Active Problem Abdominal pain, epigastric 789.06 Active Problem Vomiting alone 787.03 Active Problem General counseling for initiation of other contraceptive measures V25.02 Active Problem Abdominal pain, unspecified site 789.00 Active Problem Abdominal pain, generalized 789.07 Active Problem Irritable bowel syndrome 564.1 Active Problem Screening examination for pulmonary tuberculosis V74.1 Active Problem Nausea alone 787.02 Active Assessment Anxiety disorder, unspecified F41.9 Active Problem Sprain and strain of tibiofibular (ligament) 845.03 Active Problem Unspecified myalgia and myositis 729.1 Active Medications No Known Medications Procedures Procedure Coding System Code Date Psych diagnostic evaluation, established patient CPT-4 90132 Aug 17, 2015 Results No Known Results Summary Purpose eClinicalWorks Submission
--- OUTSIDE RECORDS SUMMARY | 2017-12-17 10:15 | XMS REPORT ---
Author Author RUSTY BATISTA [facility] eClinicalWorks Address Unknown Phone Unavailable Care Team Providers Care Range Management Specialist Name Role Phone RUSTY BATISTA CP Unavailable Allergies No Known Allergies Problems Problem Type Condition Code Onset Dates Condition Status Assessment Generalized anxiety disorder F41.1 Active Assessment Anxiety disorder, unspecified F41.9 Active Assessment Cyclic vomiting syndrome 536.2 Active Assessment Irritable bowel syndrome 564.1 Active Assessment Abdominal pain, generalized 789.07 Active Problem Other general counseling and advice for contraceptive management V25.09 Active Assessment Depressive disorder, not elsewhere classified F32.9 Active Problem Absence of menstruation 626.0 Active [...] syndrome 564.1 Active Medications No Known Medications Procedures Procedure Coding System Code Date Psych diagnostic evaluation, new patient CPT-4 38483 Aug 23, 2015 Results No Known Results Summary Purpose eClinicalWorks Submission
--- OUTSIDE RECORDS SUMMARY | 2017-12-17 10:15 | XMS REPORT ---
Author SANTOS Zabala [facility] eClinicalWorks Address Unknown Phone Unavailable Care Team Providers Care Manager Application Name Role Phone SANTOS MARINELLI CP Unavailable Allergies, Adverse Reactions, Alerts Substance Reaction Event Type N.K.D.A. Info Not Available Non Drug Allergy Problems Problem Type Condition ICD-9 Code Onset Dates Condition Status Problem Nausea alone 787.02 Active Problem Other general counseling and advice for contraceptive management V25.09 Active Problem Unspecified myalgia and myositis 729.1 Active Problem Cyclic vomiting syndrome 536.2 Active Problem Counseling on other sexually transmitted diseases V65.45 Active Problem Insomnia 780.52 Active Assessment Cyclical vomiting 536.2 Active Assessment Abdominal pain, generalized 789.07 Active Problem Cyclical vomiting 536.2 Active Problem [...] Active Problem Abdominal pain, generalized 789.07 Active Assessment Insomnia 780.52 Active Problem Depressive disorder, not elsewhere classified 311 Active Problem Irritable bowel syndrome 564.1 Active Medications Medication Code System Code Instructions Start Date End Date Status Dosage Bentyl [facility] [address]-35 20 MG Orally Four times a day prn May 30, 2015 Jun 29, 2015 1 tablet Seroquel [facility] [address]-09 25 MG Orally Once a day May 30, 2015 1 tablet Reglan [facility] [address]-15 10 MG Orally 4 times a day May 16, 2015 as directed Gabapentin [facility] [address]-63 100 MG Orally Three times a day May 16, 2015 as directed Ortho Evra [facility] [address]-81 150-35 mcg/24 hr Jul 28, 2014 1 PATCH by Transdermal route 1 time per week for 3 week(s) Procedures Procedure Coding System Code Date Office Visit, Est Pt., Level 4 CPT-4 30619 May 30, 2015 Vital Signs Date/Time: May 30, 2015 Temperature 98.9 F Weight 134.4 lbs Height 63 in BMI 23.81 Index Blood Pressure Diastolic 70 mmHg Blood Pressure Systolic 122 mmHg Cardiac Monitoring Heart Rate 92 bpm BMIPercentile 73.98 % Wt Percentile 66.54 % Results No Known Results Summary Purpose eClinicalWorks Submission
--- OUTSIDE RECORDS SUMMARY | 2017-12-17 10:18 | XMS REPORT ---
Author Author SANTOS MARINELLI Organization [facility] Address [address] [place] [address] Care Team Providers Care Quality Control Supervisor Name Role Phone SANTOS MARINELLI Unavailable PROBLEMS Type Condition ICD9-CM Code [id number] Code Onset Dates Condition Status SNOMED Code Problem Anxiety disorder, unspecified F41.9 Active 255629346 Problem Dysuria R30.0 Active 61678180 Problem Scabies B86 Active 537868546 Problem Dysmenorrhea N94.6 Active 718551901 Problem Drug abuse and dependence F19.20 Active 8673225 Problem Depressive disorder, not elsewhere classified F32.9 Active 01039072 Problem Abdominal pain R10.9 Active 42888375 Problem Cyclic vomiting syndrome G43.A0 Active 75095663 ALLERGIES Unknown Allergies SOCIAL HISTORY No smoking Hx information available PLAN OF CARE VITAL SIGNS MEDICATIONS Unknown Medications RESULTS No Results PROCEDURES No Known procedures IMMUNIZATIONS No Known Immunizations
--- OUTSIDE RECORDS SUMMARY | 2017-12-17 10:19 | XMS REPORT ---
Author Author ARMAAN ELLIOTT [facility] eClinicalWorks Address Unknown Phone Unavailable Care Team Providers Care Debt Collection Specialist Name Role Phone ARMAAN ELLIOTT Unavailable Allergies, Adverse Reactions, Alerts Substance Reaction Event Type N.K.D.A. Info Not Available Non Drug Allergy Problems Problem Type Condition Code Onset Dates Condition Status Assessment Anxiety disorder, unspecified F41.9 Active Assessment Vomiting, unspecified R11.10 Active Problem Other general counseling and advice for contraceptive management V25.09 Active Assessment Insomnia, unspecified G47.00 Active Problem Absence of menstruation 626.0 Active [...] Date End Date Status Dosage Pantoprazole Sodium [facility] [address]-82 20 MG Orally Once a day Aug 17, 2015 2 tablets Amitriptyline HCl [facility] [address]-82 75 MG Orally Once a day at hs Aug 17, 2015 1 tablet Reglan [facility] [address]-23 10 MG Orally 4 times a day May 16, 2015 as directed Ortho Evra [facility] [address]-82 150-35 mcg/24 hr Jul 28, 2014 1 PATCH by Transdermal route 1 time per week for 3 week(s) Tramadol HCl [facility] [address]-10 50 MG Orally every 6 hrs 1 tablet as needed Potassium Chloride [facility] [address]-06 10 MEQ Orally Twice a day 1 capsule pantoprazole [facility] 0 20 mg Jul 06, 2014 1 tablet by Oral route 2 times per day HydrOXYzine HCl [facility] [address]-59 25 MG Orally 2 times a day prn sparingly April 19, 2015 1 tablet as needed Effexor XR [facility] [address]-28 75 MG Orally Once a day Aug 24, 2015 1 capsule with food Famotidine [facility] [address]-19 20 MG Orally Twice a day 1 tablet Procedures Procedure Coding System Code Date Psych diagnostic evaluation w/medical services, established patient CPT-4 06435 Aug 24, 2015 Vital Signs Date/Time: Aug 24, 2015 Cardiac Monitoring Heart Rate 90 bpm Weight 133 lbs Height 63 in Wt Percentile 63.36 % BMI 23.56 Index Blood Pressure Diastolic 68 mmHg Blood Pressure Systolic 110 mmHg BMIPercentile 71.47 % Results No Known Results Summary Purpose eClinicalWorks Submission
--- OUTSIDE RECORDS SUMMARY | 2017-12-17 10:20 | XMS REPORT ---
Author Author ALPHONSE ARDON [facility] eClinicalWorks Address Unknown Phone Unavailable Care Team Providers Care Gelatin Maker Utility Name Role Phone ALPHONSE ARDON Unavailable Allergies No Known Allergies Problems Problem Type Condition Code Onset Dates Condition Status Problem Absence of menstruation 626.0 Active Problem Counseling on other sexually transmitted diseases V65.45 Active Problem examination or test, negative result V72.41 Active Problem Screening examination for venereal disease V74.5 Active Problem Problems related to high-risk sexual behavior V69.2 Active Problem Cyclic vomiting syndrome 536.2 Active Problem Insomnia 780.52 Active Problem Cyclic vomiting syndrome G43.A0 Active Problem Drug abuse and dependence F19.20 Active Problem Abdominal pain, epigastric 789.06 Active Problem Abdominal pain, unspecified site 789.00 Active Problem Abdominal pain R10.9 Active Problem General counseling for initiation of other contraceptive measures V25.02 Active Problem Dysuria R30.0 Active Problem Cyclical vomiting 536.2 Active Problem Depressive disorder, not elsewhere classified F32.9 Active Problem Anxiety disorder, unspecified F41.9 Active Problem Sprain and strain of tibiofibular (ligament) 845.03 Active Problem Abdominal pain, generalized 789.07 Active Problem Vomiting alone 787.03 Active Problem Screening examination for pulmonary tuberculosis V74.1 Active Problem Unspecified myalgia and myositis 729.1 Active Problem Other general counseling and advice for contraceptive management V25.09 Active Problem Irritable bowel syndrome 564.1 Active Problem Nausea alone 787.02 Active Medications Medication Code System Code Instructions Start Date End Date Status Dosage Cymbalta [facility] [address]-97 30 MG Orally Once a day Oct 10, 2015 1 capsule pantoprazole N[facility] 0 20 mg Jul 06, 2014 1 tablet by Oral route 2 times per day Ortho Evra N[facility] 0 150-35 mcg/24 hr Jul 28, 2014 1 PATCH by Transdermal route 1 time per week for 3 week(s) Results No Known Results Summary Purpose eClinicalWorks Submission
--- OUTSIDE RECORDS SUMMARY | 2017-12-17 10:20 | XMS REPORT ---
Author SANTOS Zabala [facility] eClinicalWorks Address Unknown Phone Unavailable Care Team Providers Care Interactive Designer Name Role Phone SANTOS MARINELLI Unavailable Allergies No Known Allergies Problems Problem Type Condition Code Onset Dates Condition Status Assessment Dysmenorrhea N94.6 Active Problem Abdominal pain R10.9 Active Problem Cyclic vomiting syndrome G43.A0 Active Problem Dysmenorrhea N94.6 Active Problem Anxiety disorder, unspecified F41.9 Active Problem Dysuria R30.0 Active Problem Drug abuse and dependence F19.20 Active Problem Depressive disorder, not elsewhere classified F32.9 Active Medications Medication Code System Code Instructions Start Date End Date Status Dosage Ortho-Cyclen (28) [facility] [address]-72 0.25-35 MG-MCG Orally Once a day May 1 tablet Results No Known Results Summary Purpose eClinicalWorks Submission
--- OUTSIDE RECORDS SUMMARY | 2017-12-17 10:21 | XMS REPORT ---
Author Author SANTOS MARINELLI [facility] eClinicalWorks Address Unknown Phone Unavailable Care Team Providers Care Correctional Officer Sergeant Name Role Phone SANTOS MARINELLI CP Unavailable Allergies, Adverse Reactions, Alerts Substance Reaction Event Type N.K.D.A. Info Not Available Non Drug Allergy Problems Problem Type Condition Code Onset Dates Condition Status Assessment UTI (urinary tract infection) N39.0 Active Assessment Abdominal pain R10.9 Active Problem Absence of menstruation 626.0 Active [...] Date End Date Status Dosage Amitriptyline HCl [facility] [address]-83 75 MG Orally Once a day at Aug 17, 2015 1 tablet Procedures Procedure Coding System Code Date URINALYSIS, AUTO, W/O SCOPE CPT-4 23601 Oct 08, 2015 Office Visit, Est Pt., Level 4 CPT-4 75865 Oct 08, 2015 URINE TEST CPT-4 41388 Oct 08, 2015 Vital Signs Date/Time: Oct 08, 2015 Temperature 97.3 F Weight 123.1 lbs Height 63 in BMI 21.80 Index Blood Pressure Diastolic 90 mmHg Blood Pressure Systolic 126 mmHg Cardiac Monitoring Heart Rate 96 bpm BMIPercentile 53.65 % Wt Percentile 44.37 % Results Name Result Date Reference Range Unit Abnormality Flag TEST, URINE (IN HOUSE) ----RESULTS Negative 20151008 ----Lot # [id number] [id number] ----Control + 20151008 ----Exp date 20151008 UA LONG DIP (IN HOUSE) ----JENNIE Negative 20151008 ----GLU Negative 20151008 ----SG 1.025 20151008 ----KET Negative 20151008 ----pH 7.0 20151008 ----Protein Negative 20151008 ----BLO Negative 20151008 ----CLEMENTE Trace 20151008 ----Color Yellow 20151008 ----Lot # [id number] 20151008 ----Odor None 20151008 ----Exp date 20151008 ----URO 0.2 20151008 ----NIT Negative 20151008 ----Clarity Clear 20151008 ----Lot # [id number] 20151008 ----Exp date 20151008 Summary Purpose eClinicalWorks Submission
--- OUTSIDE RECORDS SUMMARY | 2017-12-17 10:22 | XMS REPORT ---
Author Author SANTOS MARINELLI Organization [facility] Address [address] [place] [address] Care Team Providers Care Supply Chain Technician Name Role Phone SANTOS MARINELLI Unavailable PROBLEMS Type Condition ICD9-CM Code [id number] Code Onset Dates Condition Status SNOMED Code Problem Anxiety disorder, unspecified F41.9 Active 116505009 Problem Dysuria R30.0 Active 59568364 Problem Scabies B86 Active 234479032 Problem Dysmenorrhea N94.6 Active 121595712 Problem Drug abuse and dependence F19.20 Active 4835998 Problem Depressive disorder, not elsewhere classified F32.9 Active 29889743 Problem Abdominal pain R10.9 Active 17812991 Problem Cyclic vomiting syndrome G43.A0 Active 53192164 ALLERGIES Unknown Allergies SOCIAL HISTORY No smoking Hx information available PLAN OF CARE VITAL SIGNS MEDICATIONS Medication Instructions Dosage Frequency Start Date End Date Duration Status Promethazine HCl 25 MG Orally every 6 h prn nausea Jul, Active RESULTS No Results PROCEDURES No Known procedures IMMUNIZATIONS No Known Immunizations
--- OUTSIDE RECORDS SUMMARY | 2017-12-17 10:22 | XMS REPORT ---
Author Author SANTOS MARINELLI [facility] eClinicalWorks Address Unknown Phone Unavailable Care Team Providers Care Electric Stove Installer Name Role Phone SANTOS MARINELLI CP Unavailable [...] other sexually transmitted diseases V65.45 Active Assessment Cyclical vomiting 536.2 Active Problem Depressive disorder, [...] Active Problem Nausea alone 787.02 Active Assessment Dysuria R30.0 Active Problem Sprain and strain of tibiofibular (ligament) 845.03 Active Problem Unspecified myalgia and myositis 729.1 Active Medications Medication Code System Code Instructions Start Date End Date Status Dosage Amitriptyline HCl [facility] [address]-94 75 MG Orally Once a day at Aug 17, 2015 1 tablet Famotidine [facility] [address]-19 20 MG Orally Twice a day 1 tablet Pantoprazole Sodium [facility] [address]-69 20 MG Orally Once a day Aug 17, 2015 2 tablets Procedures Procedure Coding System Code Date Office Visit, Est Pt., Level 4 CPT-4 91951 Aug 17, 2015 TORADOL (IM) 60 MG/2ML (UP TO 15 MG) CPT-4 J1885 Aug 17, 2015 URINALYSIS, AUTO, W/O SCOPE CPT-4 36335 Aug 17, 2015 PHENERGAN (IM) 25 MG (25 MG/ML) CPT-4 J2550 Aug 17, 2015 THER/PROPH/DIAG INJ, SC/IM CPT-4 92447 Aug 17, 2015 Vital Signs Date/Time: Aug 17, 2015 Temperature 98.5 F Weight 125.1 lbs Height 63 in BMI 22.16 Index Blood Pressure Diastolic 100 mmHg Blood Pressure Systolic 140 mmHg Cardiac Monitoring Heart Rate 102 bpm BMIPercentile 58.29 % Wt Percentile 49.21 % Results Name Result Date Reference Range Unit Abnormality Flag UA LONG DIP (IN HOUSE) ----CLEMENTE Negative 20150817 ----NIT Negative 20150817 ----SG >=1.030 20150817 ----KET 2+ 20150817 ----JENNIE 2+ 20150817 ----GLU Negative 20150817 ----Odor none 20150817 ----pH 5.5 20150817 ----BLO Trace Intact 20150817 ----URO 0.2 E.U./dL 20150817 ----Protein 2+ 20150817 ----Lot # [id number] ----Exp date 20150817 ----Clarity cloudy 20150817 ----Color orange 20150817 Summary Purpose eClinicalWorks Submission
--- OUTSIDE RECORDS SUMMARY | 2017-12-17 10:23 | XMS REPORT ---
Author Author JAHAIRA ACOSTA Organization [employer] Address Unknown Phone Unavailable Care Team Providers Care Formulation Technician Name Role Phone JAHAIRA ACOSTA CP Unavailable Allergies No Known Allergies Problems Problem Type Condition Code Onset Dates Condition Status Problem Dysuria R30.0 Active Problem Dysmenorrhea N94.6 Active Problem Abdominal pain R10.9 Active Problem Scabies B86 Active Problem Depressive disorder, not elsewhere classified F32.9 Active Problem Anxiety disorder, unspecified F41.9 Active Problem Cyclic vomiting syndrome G43.A0 Active Problem Drug abuse and dependence F19.20 Active Medications Medication Code System Code Instructions Start Date End Date Status Dosage Phenergan [facility] [address]-58 25 MG Rectal every 6 hrs prn vomiting Aug 14, 2016 1 suppository as needed Results No Known Results Summary Purpose [employer] Submission
--- OUTSIDE RECORDS SUMMARY | 2017-12-17 10:24 | XMS REPORT ---
Author Author ALPHONSE ARDON [facility] [employer] Address Unknown Phone Unavailable Care Team Providers Care Strip Cutting Machine Operator Name Role Phone ALPHONSE ARDON Unavailable Allergies [...] Date End Date Status Dosage Pantoprazole Sodium [facility] [address]-06 20 MG Orally Once a day Oct 10, 2015 2 tablets Results No Known Results Summary Purpose [employer] Submission
--- OUTSIDE RECORDS SUMMARY | 2017-12-17 10:25 | XMS REPORT ---
Author Author CAYDEN RAZA [facility] [employer] Address Unknown Phone Unavailable Care Team Providers Care Refractory Furnace Designer Name Role Phone CAYDEN RAZA CP Unavailable Allergies No Known Allergies Problems [...] other sexually transmitted diseases V65.45 Active Problem Depressive disorder, not elsewhere classified [...] V74.1 Active Problem Nausea alone 787.02 Active Problem Sprain and strain of tibiofibular (ligament) 845.03 Active Problem Unspecified myalgia and myositis 729.1 Active Medications No Known Medications Results No Known Results Summary Purpose [employer] Submission
--- OUTSIDE RECORDS SUMMARY | 2017-12-17 10:25 | XMS REPORT ---
Author Author SANTOS MARINELLI [facility] [employer] Address Unknown Phone Unavailable Care Team Providers Care Circus Supervisor Name Role Phone SANTOS MARINELLI CP Unavailable Allergies, Adverse Reactions, Alerts Substance Reaction Event Type N.K.D.A. Info Not Available Non Drug Allergy Problems Problem Type Condition Code Onset Dates Condition Status Assessment Abdominal pain R10.9 Active Problem Dysuria R30.0 Active Assessment Cyclic vomiting syndrome G43.A0 Active Problem Dysmenorrhea N94.6 Active Problem Abdominal pain R10.9 Active Problem Scabies B86 Active Problem Depressive disorder, not elsewhere classified F32.9 Active Problem Anxiety disorder, unspecified F41.9 Active Problem Cyclic vomiting syndrome G43.A0 Active Problem Drug abuse and dependence F19.20 Active Assessment Dysmenorrhea N94.6 Active Assessment Scabies B86 Active Assessment Drug abuse and dependence F19.20 Active Medications Medication Code System Code Instructions Start Date End Date Status Dosage Ortho-Cyclen (28) [facility] [address]-57 0.25-35 MG-MCG Orally Once a day May 1 tablet Amitriptyline HCl [facility] [address]-76 75 MG Orally Once a day at hs Aug 17, 2015 1 tablet Promethazine HCl [facility] [address]-97 25 MG Orally every 6 h prn nausea Jul 1 Permethrin [facility] [address]-98 5 % Externally Once a day Jul 31, 2016Jul 1 application to affected area Celexa [facility] [address]-56 20 mg Orally Once a day Jul 31, 2016 1 tablet Procedures Procedure Coding System Code Date Office Visit, Est Pt., Level 4 CPT-4 23390 Jul 31, 2016 Vital Signs Date/Time: Jul 31, 2016 Cardiac Monitoring Heart Rate 78 bpm Weight 122.7 lbs Height 63 in Wt Percentile 40.18 % BMI 21.73 Index Blood Pressure Diastolic 70 mmHg Blood Pressure Systolic 102 mmHg BMIPercentile 50.89 % Results No Known Results Summary Purpose [employer]ClinicalWorks Submission
--- OUTSIDE RECORDS SUMMARY | 2017-12-17 10:25 | XMS REPORT ---
Author Author SANTOS MARINELLI [facility] e[employer] Address Unknown Phone Unavailable Care Team Providers Care Scientific Linguist Name Role Phone SANTOS MARINELLI Unavailable Allergies [...] Drug abuse and dependence F19.20 Active Medications No Known Medications Results No Known Results Summary Purpose [employer]ClinicalWorks Submission
--- OUTSIDE RECORDS SUMMARY | 2017-12-17 10:28 | XMS REPORT | Continuity of Care Document ---
Author Author [facility] Address Unknown Phone Unavailable Allergies Active Description Code Type Severity Reaction Onset Reported/Identified Relationship to Patient Clinical Status Yes narcotic analgesic Drug Allergy 05/30/2010 Yes No Known Drug Allergies [id number] Drug Allergy Unknown N/A 01/12/2016 Medications There is no data. Problems Date Dx Coded Attending Type Code Diagnosis Diagnosed By 12/05/2008 845.00 ANKLE SPRAIN LEFT 12/05/2008 845.00 ANKLE SPRAIN LEFT 12/05/2008 LENCHO BOWERS APRN S 845.00 ANKLE SPRAIN LEFT 12/05/2008 CAYDEN RAZA DO 845.00 ANKLE SPRAIN LEFT 12/05/2008 JEAN NOYOLA MD 845.00 ANKLE SPRAIN LEFT 12/05/2008 DENNYS REDMAN, JEAN 845.00 ANKLE SPRAIN LEFT 12/05/2008 DENNYS REDMAN, JEAN 845.00 ANKLE SPRAIN LEFT 12/05/2008 LENCHO BOWERS APRN S 845.00 ANKLE SPRAIN LEFT 12/05/2008 LENCHO BOWERS APRN S 845.00 ANKLE SPRAIN LEFT 12/05/2008 REVA REDMAN, ALPHONSE N 845.00 ANKLE SPRAIN LEFT 12/05/2008 CAYDEN RAZA DO 845.00 ANKLE SPRAIN LEFT 12/05/2008 FELICITY HIRSCH APRN A 845.00 ANKLE SPRAIN LEFT 12/05/2008 DENNYS REDMAN JEAN 845.00 ANKLE SPRAIN LEFT 12/05/2008 FELICITY HIRSCH APRN A 845.00 ANKLE SPRAIN LEFT 05/29/2009 493.90 ASTHMA EXERCISE-INDUCED 05/29/2009 724.2 lower back pain 05/29/2009 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 Patient Checkup Adolescent 12-17 05/29/2009 493.90 ASTHMA EXERCISE-INDUCED 05/29/2009 724.2 lower back pain 05/29/2009 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 Patient Checkup Adolescent 12-17 05/29/2009 JEAN NOYOLA MD 493.90 ASTHMA EXERCISE-INDUCED 05/29/2009 JEAN NOYOLA MD 724.2 LOWER BACK PAIN 05/29/2009 JEAN NOYOLA MD 737.10 KYPHOSIS (ACQUIRED) 05/29/2009 JEAN NOYOLA MD V03.89 MENINGOCOCCAL, OTHER SPECIFIED SINGLE BACTERIAL DISEASE 05/29/2009 JEAN NOYOLA MD V06.5 VACCINES PROPHYLACTIC NEED AGAINST TD 05/29/2009 JEAN NOYOLA MD V20.2 PREVENTIVE MEDICINE ESTABL. PATIENT CHECKUP ADOLESCENT 12-17 05/29/2009 JEAN NOYOLA MD 493.90 ASTHMA EXERCISE-INDUCED 05/29/2009 JEAN NOYOLA MD 724.2 LOWER BACK PAIN 05/29/2009 JEAN NOYOLA MD 737.10 KYPHOSIS (ACQUIRED) 05/29/2009 ERENDIRA NOYOLA MDISTA V03.89 MENINGOCOCCAL, OTHER SPECIFIED SINGLE BACTERIAL DISEASE 05/29/2009 ERENDIRA NOYOLA MDISTA V06.5 VACCINES PROPHYLACTIC NEED AGAINST TD 05/29/2009 JEAN NOYOLA MD V20.2 PREVENTIVE MEDICINE ESTABL. PATIENT CHECKUP ADOLESCENT 12-17 05/29/2009 JEAN NOYOLA MD 493.90 ASTHMA EXERCISE-INDUCED 05/29/2009 JEAN NOYOLA MD 724.2 LOWER BACK PAIN 05/29/2009 JEAN NOYOLA MD 737.10 KYPHOSIS (ACQUIRED) 05/29/2009 JEAN NOYOLA MD V03.89 MENINGOCOCCAL, OTHER SPECIFIED SINGLE BACTERIAL DISEASE 05/29/2009 JEAN NOYOLA MD V06.5 VACCINES PROPHYLACTIC NEED AGAINST TD 05/29/2009 JEAN NOYOLA MD V20.2 PREVENTIVE MEDICINE ESTABL. 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 PATIENT CHECKUP ADOLESCENT 12-17 05/29/2009 ALPHONSE ARDON MD 493.90 ASTHMA EXERCISE-INDUCED 05/29/2009 ALPHONSE ARDON MD N 724.2 LOWER BACK PAIN 05/29/2009 ALPHONSE ARDON MD N 737.10 KYPHOSIS (ACQUIRED) 05/29/2009 ALPHONSE ARDON MD N V03.89 MENINGOCOCCAL, OTHER SPECIFIED SINGLE BACTERIAL DISEASE 05/29/2009 ALPHONSE ARDON MD N V06.5 VACCINES PROPHYLACTIC NEED AGAINST TD 05/29/2009 ALPHONSE ARDON MD V20.2 PREVENTIVE MEDICINE ESTABL. 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 PATIENT CHECKUP ADOLESCENT 12-17 05/29/2009 JOYCELYN SERRATO FELICITY A 493.90 ASTHMA EXERCISE-INDUCED 05/29/2009 JOYCELYN ASSOCIATION EXECUTIVE, FELICITY A 724.2 LOWER BACK PAIN 05/29/2009 JOYCELYN SERRATO FELICITY A 737.10 KYPHOSIS (ACQUIRED) 05/29/2009 JOYCELYN SERRATO FELICITY A V03.89 MENINGOCOCCAL, OTHER SPECIFIED SINGLE BACTERIAL DISEASE 05/29/2009 JOYCELYN SERRATO FELICITY A V06.5 VACCINES PROPHYLACTIC NEED AGAINST TD 05/29/2009 JOYCELYN SERRATO FELICITY A V20.2 PREVENTIVE MEDICINE ESTABL. PATIENT CHECKUP ADOLESCENT 12-17 08/31/2009 Ot 724.5 08/31/2009 Ot V57.1 02/28/2010 477.9 ALLERGIC RHINITIS, CAUSE UNSPECIFIED 02/28/2010 706.1 OTHER ACNE 02/28/2010 477.9 ALLERGIC RHINITIS, CAUSE UNSPECIFIED 02/28/2010 706.1 OTHER ACNE 02/28/2010 LENCHO BOWERS APRN S 477.9 ALLERGIC RHINITIS, CAUSE UNSPECIFIED 02/28/2010 LENCHO BOWERS APRN S 706.1 OTHER ACNE 02/28/2010 RAZA DO, CAYDEN K 477.9 ALLERGIC RHINITIS, CAUSE UNSPECIFIED 02/28/2010 RAZA DO, CAYDEN K 706.1 OTHER ACNE 02/28/2010 DENNYS REDMAN, JEAN 477.9 ALLERGIC RHINITIS, CAUSE UNSPECIFIED 02/28/2010 DENNYS REDMAN, JEAN 706.1 OTHER ACNE 02/28/2010 DENNYS REDMAN, JEAN 477.9 ALLERGIC RHINITIS, CAUSE UNSPECIFIED 02/28/2010 DENNYS REDMAN, JEAN 706.1 OTHER ACNE 02/28/2010 DENNYS REDMAN, JEAN 477.9 ALLERGIC RHINITIS, CAUSE UNSPECIFIED 02/28/2010 DENNYS REDMAN, JEAN 706.1 OTHER ACNE 02/28/2010 ELISSA SERRATO LENCHO S 477.9 ALLERGIC RHINITIS, CAUSE UNSPECIFIED 02/28/2010 ELISSA SERRATO, LENCHO S 706.1 OTHER ACNE 02/28/2010 ELISSA SERRATO LENCHO S 477.9 ALLERGIC RHINITIS, CAUSE UNSPECIFIED 02/28/2010 ELISSA SERRATO LENCHO S 706.1 OTHER ACNE 02/28/2010 ALPHONSE ARDON MD N 477.9 ALLERGIC RHINITIS, CAUSE UNSPECIFIED 02/28/2010 ALPHONSE ARDON MD N 706.1 OTHER ACNE 02/28/2010 RAZA DOLUPEA K 477.9 ALLERGIC RHINITIS, CAUSE UNSPECIFIED 02/28/2010 RAZA DO CAYDEN K 706.1 OTHER ACNE 02/28/2010 JOYCELYN SERRATO, FELICITY A 477.9 ALLERGIC RHINITIS, CAUSE UNSPECIFIED 02/28/2010 JOYCELYN SERRATO FELICITY A 706.1 OTHER ACNE 02/28/2010 DENNYS REDMAN, JEAN 477.9 ALLERGIC RHINITIS, CAUSE UNSPECIFIED 02/28/2010 DENNYS REDMAN, JEAN 706.1 OTHER ACNE 02/28/2010 JOYCELYN SERRATO, FELICITY A 477.9 ALLERGIC RHINITIS, CAUSE UNSPECIFIED 02/28/2010 JOYCELYN SERRATO, FELICITY A 706.1 OTHER ACNE 03/19/2010 132.0 PEDICULUS CAPITIS [HEAD LOUSE] 03/19/2010 372.00 ACUTE CONJUNCTIVITIS, UNSPECIFIED 03/19/2010 132.0 PEDICULUS CAPITIS [HEAD LOUSE] 03/19/2010 372.00 ACUTE CONJUNCTIVITIS, UNSPECIFIED 03/19/2010 GAYATHRI BOWERS APRNNDA S 132.0 PEDICULUS CAPITIS [HEAD LOUSE] 03/19/2010 LENCHO BOWERS APRN S 372.00 ACUTE CONJUNCTIVITIS, UNSPECIFIED 03/19/2010 LUPE RAZA DOA K 132.0 PEDICULUS CAPITIS [HEAD LOUSE] 03/19/2010 RAZA DO CAYDEN K 372.00 ACUTE CONJUNCTIVITIS, UNSPECIFIED 03/19/2010 DENNYS MD, JEAN 132.0 PEDICULUS CAPITIS [HEAD LOUSE] 03/19/2010 DENNYS REDMAN, JEAN 372.00 ACUTE CONJUNCTIVITIS, UNSPECIFIED 03/19/2010 DENNYS REDMAN, JEAN 132.0 PEDICULUS CAPITIS [HEAD LOUSE] 03/19/2010 DENNYS REDMAN, JEAN 372.00 ACUTE CONJUNCTIVITIS, UNSPECIFIED 03/19/2010 DENNYS REDMAN, JEAN 132.0 PEDICULUS CAPITIS [HEAD LOUSE] 03/19/2010 DENNYS REDMAN, JEAN 372.00 ACUTE CONJUNCTIVITIS, UNSPECIFIED 03/19/2010 ELISSA ASSOCIATION EXECUTIVE, LENCHO S 132.0 PEDICULUS CAPITIS [HEAD LOUSE] 03/19/2010 ELISSA SERRATO, LENCHO S 372.00 ACUTE CONJUNCTIVITIS, UNSPECIFIED 03/19/2010 ELISSA SERRATO, LENCHO S 132.0 PEDICULUS CAPITIS [HEAD LOUSE] 03/19/2010 ELISSA SERRATO, LENCHO S 372.00 ACUTE CONJUNCTIVITIS, UNSPECIFIED 03/19/2010 REVA REDMAN, ALPHONSE N 132.0 PEDICULUS CAPITIS [HEAD LOUSE] 03/19/2010 REVA REDMAN, ALPHONSE N 372.00 ACUTE CONJUNCTIVITIS, UNSPECIFIED 03/19/2010 LUZ MARINA KOENIG CAYDNE K 132.0 PEDICULUS CAPITIS [HEAD LOUSE] 03/19/2010 LUZ MARINA KOENIG CAYDEN K 372.00 ACUTE CONJUNCTIVITIS, UNSPECIFIED 03/19/2010 JOYCELYN SERRATO FELICITY A 132.0 PEDICULUS CAPITIS [HEAD LOUSE] 03/19/2010 JOYCELYN SERRATO FELICITY A 372.00 ACUTE CONJUNCTIVITIS, UNSPECIFIED 03/19/2010 DENNYS REDMAN, JEAN 132.0 PEDICULUS CAPITIS [HEAD LOUSE] 03/19/2010 DENNYS REDMAN, JEAN 372.00 ACUTE CONJUNCTIVITIS, UNSPECIFIED 03/19/2010 JOYCELYN SERRATO FELICITY A 132.0 PEDICULUS CAPITIS [HEAD LOUSE] 03/19/2010 JOYCELYN SERRATO FELICITY A 372.00 ACUTE CONJUNCTIVITIS, UNSPECIFIED 02/06/2011 Ot 786.52 PAINFUL RESPIRATION 02/06/2011 Ot 786.59 CHEST PAIN NEC 04/01/2011 300.4 MO DYSTHYMIC DISORDER 04/01/2011 300.4 MO DYSTHYMIC DISORDER 04/01/2011 LENCHO BOWERS APRN S 300.4 MO DYSTHYMIC DISORDER 04/01/2011 CAYDEN RAZA DO K 300.4 MO DYSTHYMIC DISORDER 04/01/2011 JEAN NOYOLA MD 300.4 MO DYSTHYMIC DISORDER 04/01/2011 JEAN NOYOLA MD 300.4 MO DYSTHYMIC DISORDER 04/01/2011 JEAN NOYOLA MD 300.4 MO DYSTHYMIC DISORDER 04/01/2011 LENCHO BOWERS APRN S 300.4 MO DYSTHYMIC DISORDER 04/01/2011 FERNANDO BOWERS APRNA S 300.4 MO DYSTHYMIC DISORDER 04/01/2011 ALPHONSE ARDON MD 300.4 MO DYSTHYMIC DISORDER 04/01/2011 CAYDEN RAZA DO 300.4 MO DYSTHYMIC DISORDER 04/01/2011 JESSICA HIRSCH APRNYL A 300.4 MO DYSTHYMIC DISORDER 04/01/2011 JEAN NOYOLA MD 300.4 MO DYSTHYMIC DISORDER 04/01/2011 JOYCELYN SERRATO FELICITY A 300.4 MO DYSTHYMIC DISORDER 05/26/2011 278.02 OVERWEIGHT 05/26/2011 278.02 OVERWEIGHT 05/26/2011 LENCHO BOWERS APRN S 278.02 OVERWEIGHT 05/26/2011 CAYDEN RAZA DO K 278.02 OVERWEIGHT 05/26/2011 JEAN NOYOLA MD 278.02 OVERWEIGHT 05/26/2011 JEAN NOYOLA MD 278.02 OVERWEIGHT 05/26/2011 JEAN NOYOLA MD 278.02 OVERWEIGHT 05/26/2011 LENCHO BOWERS APRN S 278.02 OVERWEIGHT 05/26/2011 LENCHO BOWERS APRN S 278.02 OVERWEIGHT 05/26/2011 ALPHONSE ARDON MD 278.02 OVERWEIGHT 05/26/2011 CAYDEN RAZA DO 278.02 OVERWEIGHT 05/26/2011 JOYCELYN SERRATO FELICITY A 278.02 OVERWEIGHT 05/26/2011 JEAN NOYOLA MD 278.02 OVERWEIGHT 05/26/2011 JESSICA HIRSCH APRNYL A 278.02 OVERWEIGHT 06/04/2011 V58.69 LONG-TERM ( CURRENT) USE OF OTHER MEDICATIONS 06/04/2011 V58.69 LONG-TERM ( CURRENT) USE OF OTHER MEDICATIONS 06/04/2011 LENCHO BOWERS APRN S V58.69 LONG-TERM (CURRENT) USE OF OTHER MEDICATIONS 06/04/2011 CAYDEN RAZA DO V58.69 LONG-TERM (CURRENT) USE OF OTHER MEDICATIONS 06/04/2011 JEAN NOYOLA MD V58.69 LONG-TERM (CURRENT) USE OF OTHER MEDICATIONS 06/04/2011 JEAN NOYOLA MD V58.69 LONG-TERM (CURRENT) USE OF OTHER MEDICATIONS 06/04/2011 JEAN NOYOLA MD V58.69 LONG-TERM (CURRENT) USE OF OTHER MEDICATIONS 06/04/2011 LENCHO BOWERS APRN V58.69 LONG-TERM (CURRENT) USE OF OTHER MEDICATIONS 06/04/2011 LECNHO BOWERS APRN V58.69 LONG-TERM (CURRENT) USE OF OTHER MEDICATIONS 06/04/2011 ALPHONSE ARDON MD V58.69 LONG-TERM (CURRENT) USE OF OTHER MEDICATIONS 06/04/2011 CAYDEN RAZA DO V58.69 LONG-TERM (CURRENT) USE OF OTHER MEDICATIONS 06/04/2011 FELICITY HIRSCH APRN A V58.69 LONG-TERM (CURRENT) USE OF OTHER MEDICATIONS 06/04/2011 JEAN NOYOLA MD V58.69 LONG-TERM (CURRENT) USE OF OTHER MEDICATIONS 06/04/2011 FELICITY HIRSCH APRN A V58.69 LONG-TERM (CURRENT) USE OF OTHER MEDICATIONS 12/17/2011 845.03 SPRAIN LAT ANKLE 12/17/2011 845.03 SPRAIN LAT ANKLE 12/17/2011 LENCHO BOWERS APRN 845.03 SPRAIN LAT ANKLE 12/17/2011 CAYDEN RAZA DO 845.03 SPRAIN LAT ANKLE 12/17/2011 DENNYS REDMAN, JEAN 845.03 SPRAIN LAT ANKLE 12/17/2011 JEAN NOYOLA MD 845.03 SPRAIN LAT ANKLE 12/17/2011 JEAN NOYOLA MD 845.03 SPRAIN LAT ANKLE 12/17/2011 LENCHO BOWERS APRN 845.03 SPRAIN LAT ANKLE 12/17/2011 LENCHO BOWERS APRN S 845.03 SPRAIN LAT ANKLE 12/17/2011 REVA REDMAN, ALPHONSE N 845.03 SPRAIN LAT ANKLE 12/17/2011 CAYDEN RAZA DO K 845.03 SPRAIN LAT ANKLE 12/17/2011 JOYCELYN SERRATO, FELICITY A 845.03 SPRAIN LAT ANKLE 12/17/2011 DENNYS REDMAN, JEAN 845.03 SPRAIN LAT ANKLE 12/17/2011 JESSICA HIRSCH APRNYL A 845.03 SPRAIN LAT ANKLE 05/10/2012 V25.02 CONTRACEPTION - ANY METHOD 05/10/2012 V65.45 STD COUNSELING 05/10/2012 V74.5 STD SCREEN 05/10/2012 V25.02 CONTRACEPTION - ANY METHOD 05/10/2012 V65.45 STD COUNSELING 05/10/2012 V74.5 STD SCREEN 05/10/2012 LENCHO BOWERS APRN S V25.02 CONTRACEPTION - ANY METHOD 05/10/2012 LENCHO BOWERS APRN S V65.45 STD COUNSELING 05/10/2012 LENCHO BOWERS APRN S V74.5 STD SCREEN 05/10/2012 LUPE RAZA DOA K V25.02 CONTRACEPTION - ANY METHOD 05/10/2012 LUPE RAZA DOA K V65.45 STD COUNSELING 05/10/2012 CAYDEN RAZA DO K V74.5 STD SCREEN 05/10/2012 DENNYS REDMAN, JEAN V25.02 CONTRACEPTION - ANY METHOD 05/10/2012 DENNYS REDMAN, JEAN V65.45 STD COUNSELING 05/10/2012 DENNYS REDMAN, JEAN V74.5 STD SCREEN 05/10/2012 DENNYS REDMAN, JEAN V25.02 CONTRACEPTION - ANY METHOD 05/10/2012 DENNYS REDMAN, JEAN V65.45 STD COUNSELING 05/10/2012 DENNYS REDMAN, JEAN V74.5 STD SCREEN 05/10/2012 DENNYS REDMAN, JEAN V25.02 CONTRACEPTION - ANY METHOD 05/10/2012 DENNYS REDMAN, JEAN V65.45 STD COUNSELING 05/10/2012 DENNYS REDMAN, JEAN V74.5 STD SCREEN 05/10/2012 LENCHO BOWERS APRN S V25.02 CONTRACEPTION - ANY METHOD 05/10/2012 FERNANDO BOWERS APRNA S V65.45 STD COUNSELING 05/10/2012 GAYATHRI BOWERS APRNNDA S V74.5 STD SCREEN 05/10/2012 FERNANDO BOWERS APRNA S V25.02 CONTRACEPTION - ANY METHOD 05/10/2012 FERNANDO BOWERS APRNA S V65.45 STD COUNSELING 05/10/2012 FERNANDO BOWERS APRNA S V74.5 STD SCREEN 05/10/2012 ALPHONSE ARDON MD V25.02 CONTRACEPTION - ANY METHOD 05/10/2012 ALPHONSE ARDON MD V65.45 STD COUNSELING 05/10/2012 ALPHONSE ARDON MD V74.5 STD SCREEN 05/10/2012 RAZA CAYDEN KOENIG K V25.02 CONTRACEPTION - ANY METHOD 05/10/2012 RAZA DOLUPEA K V65.45 STD COUNSELING 05/10/2012 RAZA DOLUPEA K V74.5 STD SCREEN 05/10/2012 JOYCELYN SERRATO FELICITY A V25.02 CONTRACEPTION - ANY METHOD 05/10/2012 JOYCELYN SERRATO FELICITY A V65.45 STD COUNSELING 05/10/2012 JOYCELYN SERRATO FELICITY A V74.5 STD SCREEN 05/10/2012 ERENDIRA NOYOLA MDISTA V25.02 CONTRACEPTION - ANY METHOD 05/10/2012 DENNYS REDMAN, JEAN V65.45 STD COUNSELING 05/10/2012 DENNYS REDMAN, JEAN V74.5 STD SCREEN 05/10/2012 JOYCELYN SERRATO FELICITY A V25.02 CONTRACEPTION - ANY METHOD 05/10/2012 JOYCELYN SERRATO FELICITY A V65.45 STD COUNSELING 05/10/2012 JOYCELYN SERRATO FELICITY A V74.5 STD SCREEN 11/05/2012 462 PHARYNGITIS ACUTE 11/05/2012 462 PHARYNGITIS ACUTE 11/05/2012 LENCHO BOWERS APRN S 462 PHARYNGITIS ACUTE 11/05/2012 CAYDEN RAZA DO K 462 PHARYNGITIS ACUTE 11/05/2012 DENNYS REDMAN, JEAN 462 PHARYNGITIS ACUTE 11/05/2012 DENNYS REDMAN, JEAN 462 PHARYNGITIS ACUTE 11/05/2012 DENNYS REDMAN, JEAN 462 PHARYNGITIS ACUTE 11/05/2012 ELISSA SERRATO, LENCHO S 462 PHARYNGITIS ACUTE 11/05/2012 ELISSA SERRATO, LENCHO S 462 PHARYNGITIS ACUTE 11/05/2012 REVA REDMAN, ALPHONSE Alegre 462 PHARYNGITIS ACUTE 11/05/2012 CAYDEN RAZA DO K 462 PHARYNGITIS ACUTE 11/05/2012 JOYCELYN SERRATO, FELICITY A 462 PHARYNGITIS ACUTE 11/05/2012 DENNYS REDMAN, JEAN 462 PHARYNGITIS ACUTE 11/05/2012 RAJYANET ASSOCIATION EXECUTIVE, FELICITY A 462 PHARYNGITIS ACUTE 11/11/2012 786.2 cough 11/11/2012 ELISSA SERRATO, LENCHO S 786.2 cough 11/11/2012 CAYDEN RAZA DO K 786.2 COUGH 11/11/2012 DENNYS REDMAN, JEAN 786.2 COUGH 11/11/2012 ERENDIRA NOYOLA MDISTA 786.2 COUGH 11/11/2012 DENNYS REDMAN JEAN 786.2 COUGH 11/11/2012 ELISSA SERRATO, LENCHO S 786.2 COUGH 11/11/2012 ELISSATARUN SERRATO, LENCHO S 786.2 COUGH 11/11/2012 REVA REDMAN, ALPHONSE N 786.2 COUGH 11/11/2012 CAYDEN RAZA DO K 786.2 COUGH 11/11/2012 JOYCELYN SERRATO, FELICITY A 786.2 COUGH 11/11/2012 DENNYS REDMAN JEAN 786.2 COUGH 11/11/2012 JOYCELYN SERRATO, FELICITY A 786.2 COUGH 05/12/2013 ELISSA SERRATO, LENCHO S 477.0 ALLERGIC RHINITIS DUE TO POLLEN 05/12/2013 CAYDEN RAZA DO K 477.0 ALLERGIC RHINITIS DUE TO POLLEN 05/12/2013 JEAN NOYOLA MD 477.0 ALLERGIC RHINITIS DUE TO POLLEN 05/12/2013 ERENDIRA NOYOLA MDISTA 477.0 ALLERGIC RHINITIS DUE TO POLLEN 05/12/2013 ERENDIRA NOYOLA MDISTA 477.0 ALLERGIC RHINITIS DUE TO POLLEN 05/12/2013 GAYATHRI BOWERS APRNNDA S 477.0 ALLERGIC RHINITIS DUE TO POLLEN 05/12/2013 ELISSA SERRATO LENCHO S 477.0 ALLERGIC RHINITIS DUE TO POLLEN 05/12/2013 ALPHONSE ARDON MD 477.0 ALLERGIC RHINITIS DUE TO POLLEN 05/12/2013 RAZA DO, CAYDEN K 477.0 ALLERGIC RHINITIS DUE TO POLLEN 05/12/2013 RAJOTTE ASSOCIATION EXECUTIVE, FELICITY A 477.0 ALLERGIC RHINITIS DUE TO POLLEN 05/12/2013 JEAN NOYOLA MD 477.0 ALLERGIC RHINITIS DUE TO POLLEN 05/12/2013 RAJOTTE ASSOCIATION EXECUTIVE, FELICITY A 477.0 ALLERGIC RHINITIS DUE TO POLLEN 07/14/2013 ELISSA SERRATO LENCHO S 729.1 MYALGIA AND MYOSITIS UNSPECIFIED 07/14/2013 FERNANDO BOWERS APRNA S 787.02 NAUSEA ALONE 07/14/2013 RAZA DO, CAYDEN K 729.1 MYALGIA AND MYOSITIS UNSPECIFIED 07/14/2013 RAZA DO, CAYDEN K 787.02 NAUSEA ALONE 07/14/2013 JEAN NOYOLA MD 729.1 MYALGIA AND MYOSITIS UNSPECIFIED 07/14/2013 DENNYS REDMAN JEAN 787.02 NAUSEA ALONE 07/14/2013 JEAN NYOOLA MD 729.1 MYALGIA AND MYOSITIS UNSPECIFIED 07/14/2013 DENNYS REDMAN JEAN 787.02 NAUSEA ALONE 07/14/2013 DENYNS REDMAN JEAN 729.1 MYALGIA AND MYOSITIS UNSPECIFIED 07/14/2013 DENNYS REDMAN JEAN 787.02 NAUSEA ALONE 07/14/2013 ELISSA SERRATO LENCHO S 729.1 MYALGIA AND MYOSITIS UNSPECIFIED 07/14/2013 ELISSA SERRATO LENCHO S 787.02 NAUSEA ALONE 07/14/2013 GAYATHRI BOWERS APRNNDA S 729.1 MYALGIA AND MYOSITIS UNSPECIFIED 07/14/2013 ELISSA SERRATO LENCHO S 787.02 NAUSEA ALONE 07/14/2013 ALPHONSE ARDON MD N 729.1 MYALGIA AND MYOSITIS UNSPECIFIED 07/14/2013 ALPHONSE ARDON MD N 787.02 NAUSEA ALONE 07/14/2013 RAZA DO CAYDEN K 729.1 MYALGIA AND MYOSITIS UNSPECIFIED 07/14/2013 RAZA DO, CAYDEN K 787.02 NAUSEA ALONE 07/14/2013 RAJOTTE ASS[employer]IATION EXECUTIVE, FELICITY A 729.1 MYALGIA AND MYOSITIS UNSPECIFIED 07/14/2013 RAJOTTE ASSOCIATION EXECUTIVE, FELICITY A 787.02 NAUSEA ALONE 07/14/2013 DENNYS REDMAN, JEAN 729.1 MYALGIA AND MYOSITIS UNSPECIFIED 07/14/2013 DENNYS REDMAN, JEAN 787.02 NAUSEA ALONE 07/14/2013 RAJOTTE ASSOCIATION EXECUTIVE, FELICITY A 729.1 MYALGIA AND MYOSITIS UNSPECIFIED 07/14/2013 RAJOTTE ASSOCIATION EXECUTIVE, FELICITY A 787.02 NAUSEA ALONE 08/08/2013 RAZA DO, CAYDEN K 789.00 ABDOMINAL PAIN UNSPECIFIED SITE 08/08/2013 DENNYS REDMAN, JEAN 789.00 ABDOMINAL PAIN UNSPECIFIED SITE 08/08/2013 DENNYS REDMAN JEAN 789.00 ABDOMINAL PAIN UNSPECIFIED SITE 08/08/2013 DENNYS REDMAN, JEAN 789.00 ABDOMINAL PAIN UNSPECIFIED SITE 08/08/2013 ELISSATARUN SERRATO LENCHO S 789.00 ABDOMINAL PAIN UNSPECIFIED SITE 08/08/2013 ELISSA SERRATO LENCHO S 789.00 ABDOMINAL PAIN UNSPECIFIED SITE 08/08/2013 REVA REDMAN, ALPHONSE N 789.00 ABDOMINAL PAIN UNSPECIFIED SITE 08/08/2013 LUZ MARINA KOENIG CAYDEN K 789.00 ABDOMINAL PAIN UNSPECIFIED SITE 08/08/2013 JOYCELYN SERRATO, FELICITY A 789.00 ABDOMINAL PAIN UNSPECIFIED SITE 08/08/2013 DENNYS REDMAN, JEAN 789.00 ABDOMINAL PAIN UNSPECIFIED SITE 08/08/2013 JOYCELYN SERRATO, FELICITY A 789.00 ABDOMINAL PAIN UNSPECIFIED SITE 08/17/2013 ERIKA LEWIS APRN Ot 787.01 NAUSEA WITH VOMITING 08/17/2013 ERIKA LEWIS APRN Ot 787.91 DIARRHEA 08/17/2013 ERIKA LEWIS ASSOCIATION EXECUTIVE Ot 789.09 ABDOMINAL PAIN, OTHER SPECIFIED SITE 08/18/2013 DENNYS REDMAN, JEAN L Ot 008.8 VIRAL ENTERITIS NOS 08/18/2013 DENNYS REDMAN JEAN L Ot 276.51 DEHYDRATION 08/18/2013 ERENDIRA NOYOLA MDISTA L Ot 276.9 ELECTROLYT/FLUID DIS NEC 08/18/2013 DENNYS REDMAN JEAN L Ot 338.29 OTHER CHRONIC PAIN 08/18/2013 DENNYS REDMAN JEAN L Ot 462 ACUTE PHARYNGITIS 08/18/2013 DENNYS REDMAN JEAN L Ot 578.0 HEMATEMESIS 08/18/2013 DENNYS REDMAN JEAN L Ot 789.00 ABDOMINAL PAIN, UNSPECIFIED SITE 08/18/2013 ERENDIRA NOYOLA MDISTA L Ot V04.81 ND FOR PROPHYLACTIC VACCIN AND INOCULATI 08/23/2013 JEAN NOYOLA MD 311 DEPRESSIVE DISORDER NOT ELSEWHERE CLASSIFIED 08/23/2013 JEAN NOYOLA MD 311 DEPRESSIVE DISORDER NOT ELSEWHERE CLASSIFIED 08/23/2013 JEAN NOYOLA MD 311 DEPRESSIVE DISORDER NOT ELSEWHERE CLASSIFIED 08/23/2013 GAYATRHI BOWERS APRNNDA S 311 DEPRESSIVE DISORDER NOT ELSEWHERE CLASSIFIED 08/23/2013 GAYATRHI BOWERS APRNNDA S 311 DEPRESSIVE DISORDER NOT ELSEWHERE CLASSIFIED 08/23/2013 ALPHONSE ARDON MD 311 DEPRESSIVE DISORDER NOT ELSEWHERE CLASSIFIED 08/23/2013 CAYDEN RAZA DO K 311 DEPRESSIVE DISORDER NOT ELSEWHERE CLASSIFIED 08/23/2013 FELICITY HIRSCH APRN A 311 DEPRESSIVE DISORDER NOT ELSEWHERE CLASSIFIED 08/23/2013 JEAN NOYOLA MD 311 DEPRESSIVE DISORDER NOT ELSEWHERE CLASSIFIED 08/23/2013 FELICITY HIRSCH APRN A 311 DEPRESSIVE DISORDER NOT ELSEWHERE CLASSIFIED 09/27/2013 DENNYS REDMAN JEAN 787.03 VOMITING ALONE 09/27/2013 ERENDIRA NOYOLA MDISTA 789.06 ABDOMINAL PAIN EPIGASTRIC 09/27/2013 GAYATHRI BOWERS APRNNDA S 787.03 VOMITING ALONE 09/27/2013 GAYATHRI BOWERS APRNNDA S 789.06 ABDOMINAL PAIN EPIGASTRIC 09/27/2013 GAYATHRI BOWERS APRNNDA S 787.03 VOMITING ALONE 09/27/2013 GAYATHRI BOWERS APRNNDA S 789.06 ABDOMINAL PAIN EPIGASTRIC 09/27/2013 ALPHONSE ARDON MD N 787.03 VOMITING ALONE 09/27/2013 ALPHONSE ARDON MD N 789.06 ABDOMINAL PAIN EPIGASTRIC 09/27/2013 RAZA DO, CAYDEN K 787.03 VOMITING ALONE 09/27/2013 RAZA DO, CAYDEN K 789.06 ABDOMINAL PAIN EPIGASTRIC 09/27/2013 RAJYANET SERRATO, FELICITY A 787.03 VOMITING ALONE 09/27/2013 JOYCELYN SERRATO, FELICITY A 789.06 ABDOMINAL PAIN EPIGASTRIC 09/27/2013 DENNYS REDMAN, JEAN 787.03 VOMITING ALONE 09/27/2013 DENNYS REDMAN, JEAN 789.06 ABDOMINAL PAIN EPIGASTRIC 09/27/2013 JOYCELYN SERRATO, FELICITY A 787.03 VOMITING ALONE 09/27/2013 JOYCELYN SERRATO, FELICITY A 789.06 ABDOMINAL PAIN EPIGASTRIC 11/02/2013 LEAH LEYVA MD Ot 288.60 LEUKOCYTOSIS, UNSPECIFIED 11/02/2013 LEAH LEYVA MD Ot 300.00 ANXIETY STATE NOS 11/02/2013 LEAH LEYVA MD Ot 305.20 CANNABIS ABUSE-UNSPEC 11/02/2013 LEAH LEYVA MD Ot 338.29 OTHER CHRONIC PAIN 11/02/2013 LEAH LEYVA MD Ot 493.00 EXTRINSIC ASTHMA, NOS 11/02/2013 LEAH LEYVA MD Ot 530.11 REFLUX ESOPHAGITIS 11/02/2013 LEAH LEYVA MD Ot 535.50 UNSP GASTRITIS GASTRODUODENITIS W/O ME 11/02/2013 LEAH LEYVA MD Ot 535.60 DUODENITIS, WITHOUT MENTION OF HEMORRHAG 11/02/2013 LEAH LEYVA MD Ot 564.1 IRRITABLE BOWEL SYNDROME 11/02/2013 LEAH LEYVA MD Ot 575.8 DIS OF GALLBLADDER NEC 11/02/2013 LEAH LEYVA MD Ot 578.0 HEMATEMESIS 11/02/2013 LEAH LEYVA MD Ot 620.2 OVARIAN CYST NEC/NOS 11/02/2013 LEAH LEYVA MD Ot 784.0 HEADACHE 11/02/2013 LEAH LEYVA MD Ot 787.01 NAUSEA WITH VOMITING 11/02/2013 LEAH LEYVA MD Ot 789.01 ABDOMINAL PAIN, RIGHT UPPER QUADRANT 11/17/2013 ELISSA ASSOCIATION EXECUTIVE, LENCHO S 564.1 IRRITABLE BOWEL SYNDROME 11/17/2013 ELISSA KELLYN, LENCHO S 789.07 ABDOMINAL PAIN GENERALIZED 11/17/2013 REVA REDMAN, ALPHONSE N 564.1 IRRITABLE BOWEL SYNDROME 11/17/2013 REVA REDMAN, ALPHONSE N 789.07 ABDOMINAL PAIN GENERALIZED 11/17/2013 RAZA DO, CAYDEN K 564.1 IRRITABLE BOWEL SYNDROME 11/17/2013 RAZA DO, CAYDEN K 789.07 ABDOMINAL PAIN GENERALIZED 11/17/2013 JOYCELYN SERRATO FELICITY A 564.1 IRRITABLE BOWEL SYNDROME 11/17/2013 JOYCELYN SERRATO FELICITY A 789.07 ABDOMINAL PAIN GENERALIZED 11/17/2013 JEAN NOYOLA MD 564.1 IRRITABLE BOWEL SYNDROME 11/17/2013 JEAN NOYOLA MD 789.07 ABDOMINAL PAIN GENERALIZED 11/17/2013 JOYCELYN SERRATO FELICITY A 564.1 IRRITABLE BOWEL SYNDROME 11/17/2013 JOYCELYN SERRATO FELICITY A 789.07 ABDOMINAL PAIN GENERALIZED 11/29/2013 ERIKA LEWIS ASSOCIATION EXECUTIVE Ot 276.8 HYPOPOTASSEMIA 11/29/2013 ERIKA LEWIS ASSOCIATION EXECUTIVE Ot 599.0 URIN TRACT INFECTION NOS 11/29/2013 ERIKA LEWIS ASSOCIATION EXECUTIVE Ot 787.01 NAUSEA WITH VOMITING 12/07/2013 JEAN NOYOLA MD L Ot 041.3 KLEBSIELLA PNEUMONIAE 12/07/2013 JEAN NOYOLA MD L Ot 305.20 CANNABIS ABUSE-UNSPEC 12/07/2013 JEAN NOYOLA MD L Ot 536.2 PERSISTENT VOMITING 12/07/2013 JEAN NOYOLA MD L Ot 543.9 DISEASES OF APPENDIX NEC 12/07/2013 JEAN NOYOLA MD L Ot 599.0 URIN TRACT INFECTION NOS 12/07/2013 JEAN NOYOLA MD L Ot 617.1 OVARIAN ENDOMETRIOSIS 12/07/2013 JEAN NOYOLA MD Ot 617.3 PELV PERIT ENDOMETRIOSIS 12/07/2013 JEAN NOYOLA MD L Ot 620.8 NONINFL DIS OVA/ADNX NEC 12/07/2013 JEAN NOYOLA MD L Ot V03.82 PROPHYLACTIC VACC AGAINST STREPTOCOCCUS 12/21/2013 DENNYS MD, JEAN L Ot 536.2 PERSISTENT VOMITING 12/21/2013 DENNYS REDMAN, JEAN L Ot 789.00 ABDOMINAL PAIN, UNSPECIFIED SITE 07/12/2014 JOYCELYN ESRRATO FELICITY A 626.0 AMENORRHEA 07/12/2014 JOYCELYN SERRATO FELICITY A V25.09 CONTRACEPTIVE COUNSELING - GENERAL 07/12/2014 JOYCELYN ASSOCIATION EXECUTIVE, FELICITY A V69.2 HIGH-RISK SEXUAL BEHAVIOR 07/12/2014 JOYCELYN ASSOCIATION EXECUTIVE, FELICITY A V72.41 TEST NEGATIVE RESULT 07/12/2014 DENNYS REDMAN, JEAN 626.0 AMENORRHEA 07/12/2014 DENNYS REDMAN, JEAN V25.09 CONTRACEPTIVE COUNSELING - GENERAL 07/12/2014 DENNYS REDMAN, JEAN V69.2 HIGH-RISK SEXUAL BEHAVIOR 07/12/2014 DENNYS REDMAN, JEAN V72.41 TEST NEGATIVE RESULT 07/12/2014 JOYCELYN ASSOCIATION EXECUTIVE, FELICITY A 626.0 AMENORRHEA 07/12/2014 JOYCELYN SERRATO FELICITY A V25.09 CONTRACEPTIVE COUNSELING - GENERAL 07/12/2014 JOYCELYN SERRATO FELICITY A V69.2 HIGH-RISK SEXUAL BEHAVIOR 07/12/2014 JOYCELYN ASSOCIATION EXECUTIVE, FELICITY A V72.41 TEST NEGATIVE RESULT 09/05/2014 Ot 959.19 09/05/2014 Ot E849.4 09/05/2014 Ot E888.9 09/05/2014 ANDERS GRAY ASSOCIATION EXECUTIVE Ot 787.01 09/05/2014 ANDERS GRAY ASSOCIATION EXECUTIVE Ot 789.00 09/05/2014 Ot 959.19 09/05/2014 Ot E849.4 09/05/2014 Ot E888.9 09/05/2014 ANDERS GRAY ASSOCIATION EXECUTIVE Ot 787.01 09/05/2014 ANDERS GRAY ASSOCIATION EXECUTIVE Ot 789.00 09/05/2014 CADE REDMAN, DONNA Sunshine Ot 536.2 PERSISTENT VOMITING 09/05/2014 CADE REDMAN, DONNA Sunshine Ot 787.91 DIARRHEA 09/05/2014 DONNA MOHAMUD MD Ot 789.07 ABDOMINAL PAIN, GENERALIZED 09/12/2014 Ot 959.19 09/12/2014 Ot E849.4 09/12/2014 Ot E888.9 09/12/2014 ANDERS GRAY R ASSOCIATION EXECUTIVE Ot 787.01 09/12/2014 ANDERS GRAY R ASSOCIATION EXECUTIVE Ot 789.00 09/20/2014 JESSICA HIRSCH APRNYL Anthony V74.1 TB SCREENING 10/02/2014 Ot 959.19 10/02/2014 Ot E849.4 10/02/2014 Ot E888.9 10/02/2014 ANDERS GRAY R ASSOCIATION EXECUTIVE Ot 787.01 10/02/2014 ANDERS GRAY ASSOCIATION EXECUTIVE Ot 789.00 10/04/2014 NENA REDMAN, BESS Cruz Ot 466.0 ACUTE BRONCHITIS 10/04/2014 BESS BARRETT MD Ot 786.2 COUGH 04/11/2015 ANDERS GRAY R ASSOCIATION EXECUTIVE Ot 787.01 04/11/2015 ANDERS GRAY R ASSOCIATION EXECUTIVE Ot 789.00 04/11/2015 ERIKA LEWIS ASSOCIATION EXECUTIVE Ot 305.21 CANNABIS ABUSE-CONTIN 04/11/2015 ERIKA LEWIS ASSOCIATION EXECUTIVE Ot 536.2 PERSISTENT VOMITING 04/11/2015 ERIKA LEWIS ASSOCIATION EXECUTIVE Ot 599.0 URIN TRACT INFECTION NOS 04/15/2015 DENNYS REDMAN, JEAN L Ot 276.2 ACIDOSIS 04/15/2015 DENNYS REDMAN, JEAN Brady Ot 276.51 DEHYDRATION 04/15/2015 JEAN NOYOLA MD Ot 276.8 HYPOPOTASSEMIA 04/15/2015 JEAN NOYOLA MD Ot 307.54 PSYCHOGENIC VOMITING 04/15/2015 JEAN NOYOLA MD Ot 788.1 DYSURIA 04/17/2015 ORLANDO MCDUFFIE Ot 305.20 CANNABIS ABUSE-UNSPEC 04/17/2015 ORLANDO MCDUFFIE Ot 536.2 PERSISTENT VOMITING 04/18/2015 ANDERS GRAY R ASSOCIATION EXECUTIVE Ot 787.01 04/18/2015 ANDERS GRAY R ASSOCIATION EXECUTIVE Ot 789.00 04/19/2015 JEAN NOYOLA MD Ot 276.51 04/19/2015 JEAN NOYOLA MD Ot 276.8 04/19/2015 DENNYS REDMAN JEAN L Ot 307.54 04/19/2015 DENNYS REDMAN JEAN L Ot 788.1 04/21/2015 ORLANDO MCDUFFIE Ot 276.50 VOLUME DEPLETION, UNSPECIFIED 04/21/2015 ORLANDO MCDUFFIE Ot 536.2 PERSISTENT VOMITING 05/13/2015 JASON LOPEZ MD Ot 300.00 ANXIETY STATE NOS 05/13/2015 JASON LOPEZ MD Ot 536.2 PERSISTENT VOMITING 05/13/2015 JASON LOPEZ MD Ot 300.00 05/13/2015 JASON LOPEZ MD Ot 536.2 05/15/2015 ORLANDO MCDUFFIE Ot 112.84 CANDIDIASIS OF THE ESOPHAGUS 05/15/2015 ORLANDO MCDUFFIE Ot 276.50 VOLUME DEPLETION, UNSPECIFIED 05/15/2015 ORLANDO MCDUFFIE Ot 536.2 PERSISTENT VOMITING 05/15/2015 ORLANDO MCDUFFIE Ot 787.03 VOMITING ALONE 05/20/2015 ERIKA LEWIS ASSOCIATION EXECUTIVE Ot 276.8 HYPOPOTASSEMIA 05/20/2015 ERIKA LEWIS ASSOCIATION EXECUTIVE Ot 599.0 URIN TRACT INFECTION NOS 05/20/2015 ERIKA LEWIS ASSOCIATION EXECUTIVE Ot 787.01 NAUSEA WITH VOMITING 08/14/2015 ERIKA LEWIS ASSOCIATION EXECUTIVE Ot F12.10 CANNABIS ABUSE, UNCOMPLICATED 08/14/2015 ERIKA LEWIS ASSOCIATION EXECUTIVE Ot G43.A0 CYCLICAL VOMITING, NOT INTRACTABLE 08/14/2015 ERIKA LEWIS ASSOCIATION EXECUTIVE Ot Z91.14 PATIENT'S OTHER NONCOMPLIANCE WITH MEDIC 08/20/2015 ANDERS GRAY ASSOCIATION EXECUTIVE Ot 787.01 08/20/2015 ANDERS GRAY ASSOCIATION EXECUTIVE Ot 789.00 08/21/2015 JSAON LOPEZ MD Ot E87.6 HYPOKALEMIA 08/21/2015 JASON LOPEZ MD Ot R10.84 GENERALIZED ABDOMINAL PAIN 08/21/2015 JASON LOPEZ MD Ot Z23 ENCOUNTER FOR IMMUNIZATION 09/01/2015 ZOHREH HAYWARD DO Ot F17.210 NICOTINE DEPENDENCE, CIGARETTES, UNCOMPL 09/01/2015 ZOHREH HAYWARD DO Ot R11.2 NAUSEA WITH VOMITING, UNSPECIFIED 09/05/2015 ZOHREH HAYWARD DO Ot 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, UNCOMPLICATED 09/05/2015 ZOHREH HAYWARD DO Ot F12.10 CANNABIS ABUSE, UNCOMPLICATED 09/05/2015 ZOHREH HAYWARD DO Ot F15.10 OTHER STIMULANT ABUSE, UNCOMPLICATED 09/05/2015 ZOHREH HAYWARD DO Ot G89.29 OTHER CHRONIC PAIN 09/05/2015 ZOHREH HAYWARD DO Ot N39.0 URINARY TRACT INFECTION, SITE NOT SPECIF 09/05/2015 ZOHREH HAYWARD DO Ot R10.9 UNSPECIFIED ABDOMINAL PAIN 09/05/2015 ZOHREH HAYWARD DO Ot R11.2 NAUSEA WITH VOMITING, UNSPECIFIED 09/05/2015 ZOHREH HAYWARD DO Ot Z91.19 PATIENT'S NONCOMPLIANCE W [facility] 09/29/2015 HEIDI KOENIGMARYSOL Ot R10.9 UNSPECIFIED ABDOMINAL PAIN 09/29/2015 HEIDI KOENIGMARYSOL Ot Z53.21 PROC/TRTMT NOT CRD OUT D/T PT LV BEF SEE 09/29/2015 MYNOR GUILLAUME MD Ot E86.0 DEHYDRATION 09/29/2015 MYNOR GUILLAUME MD, Ot F12.10 CANNABIS ABUSE, UNCOMPLICATED 09/29/2015 MYNOR GUILLAUME MD Ot F17.210 NICOTINE DEPENDENCE, CIGARETTES, UNCOMPL 09/29/2015 MYNOR GUILLAUME MD Ot G43.A0 CYCLICAL VOMITING, NOT INTRACTABLE 09/29/2015 MYNOR GUILLAUME MD Ot R10.9 UNSPECIFIED ABDOMINAL PAIN 10/04/2015 ORLANDO MCDUFFIE Ot F12.10 CANNABIS ABUSE, UNCOMPLICATED 10/04/2015 ORLANDO MCDUFFIE Ot G89.29 OTHER CHRONIC PAIN 10/04/2015 ORLANDO MCDUFFIE Ot R10.84 GENERALIZED ABDOMINAL PAIN 10/08/2015 CADE REDMAN, DONNA Sunshine Ot F12.10 CANNABIS ABUSE, UNCOMPLICATED 10/08/2015 CADE REDMAN, DONNA Sunshine Ot F17.210 NICOTINE DEPENDENCE, CIGARETTES, UNCOMPL 10/08/2015 DONNA MOHAMUD MD Ot R10.84 GENERALIZED ABDOMINAL PAIN 10/08/2015 CADE REDMAN, DONNA Sunshine Ot R11.10 VOMITING, UNSPECIFIED 10/10/2015 MYNOR GUILLAUME MD Ot F12.10 CANNABIS ABUSE, UNCOMPLICATED 10/10/2015 MYNOR GUILLAUME MD Ot G89.29 OTHER CHRONIC PAIN 10/10/2015 MNYOR GUILLAUME MD Ot K76.0 FATTY (CHANGE OF) LIVER, NOT ELSEWHERE C 10/10/2015 MYNOR GUILLAUME MD Ot K76.9 LIVER DISEASE, UNSPECIFIED 10/10/2015 MYNOR GUILLAUME MD Ot R10.84 GENERALIZED ABDOMINAL PAIN 12/10/2015 ANDERS GRAY ASSOCIATION EXECUTIVE Ot 787.01 12/10/2015 ANDERS GRAY ASSOCIATION EXECUTIVE Ot 789.00 12/10/2015 DONNA MOHAMUD MD Ot F12.10 CANNABIS ABUSE, UNCOMPLICATED 12/10/2015 DONNA MOHAMUD MD Ot F17.210 NICOTINE DEPENDENCE, CIGARETTES, UNCOMPL 12/10/2015 DONNA MOHAMUD MD Ot K52.9 NONINFECTIVE GASTROENTERITIS AND COLITIS 12/10/2015 DONNA MOHAMUD MD Ot R11.2 NAUSEA WITH VOMITING, UNSPECIFIED 12/11/2015 ORLANDO MCDUFFIE Ot F12.10 CANNABIS ABUSE, UNCOMPLICATED 12/11/2015 ORLANDO MCDUFFIE Ot G43.A0 CYCLICAL VOMITING, NOT INTRACTABLE 12/11/2015 ORLANDO MCDUFFIE Ot Z91.19 PATIENT'S NONCOMPLIANCE W [facility] 01/13/2016 Ot E87.1 HYPO- OSMOLALITY AND HYPONATREMIA 01/13/2016 Ot E87.6 HYPOKALEMIA 01/13/2016 Ot 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 , UNCOMPLICATED 01/13/2016 Ot F12.10 CANNABIS ABUSE, UNCOMPLICATED 01/13/2016 Ot F17.210 NICOTINE DEPENDENCE, CIGARETTES, UNCOMPL 01/13/2016 Ot G43.A0 CYCLICAL VOMITING, NOT INTRACTABLE 01/13/2016 Ot M62.838 OTHER MUSCLE SPASM 01/13/2016 Ot R10.2 PELVIC AND PERINEAL PAIN 02/18/2016 MYNOR GUILLAUME MD Ot F17.210 NICOTINE DEPENDENCE, CIGARETTES, UNCOMPL 02/18/2016 MYNOR GUILLAUME MD Ot L03.317 CELLULITIS OF BUTTOCK 02/19/2016 MYNOR GUILLAUME MD Ot F17.210 NICOTINE DEPENDENCE, CIGARETTES, UNCOMPL 02/19/2016 MYNOR GUILLAUME MD Ot L03.317 CELLULITIS OF BUTTOCK 02/22/2016 ERIKA LEWIS ASSOCIATION EXECUTIVE Ot L02.31 CUTANEOUS ABSCESS OF BUTTOCK 02/25/2016 ERIKA LEWIS ASSOCIATION EXECUTIVE Ot L02.31 CUTANEOUS ABSCESS OF BUTTOCK 02/25/2016 ORLANDO MCDUFFIE Ot A49.02 METHICILLIN RESIS STAPH INFECTION, UNSP 02/25/2016 ORLANDO MCDUFFIE Ot L02.31 CUTANEOUS ABSCESS OF BUTTOCK 02/25/2016 ORLANDO MCDUFFIE Ot Z48.00 ENCOUNTER FOR CHANGE OR REMOVAL OF NONSU 02/26/2016 ORLANDO MCDUFFIE Ot L02.31 CUTANEOUS ABSCESS OF BUTTOCK 02/26/2016 ORLANDO MCDUFFIE Ot Z48.00 ENCOUNTER FOR CHANGE OR REMOVAL OF NONSU 03/01/2016 ORLANDO MCDUFFIE Ot Z48.03 ENCOUNTER FOR CHANGE OR REMOVAL OF DRAIN 03/03/2016 ORLANDO MCDUFFIE Ot Z48.03 ENCOUNTER FOR CHANGE OR REMOVAL OF DRAIN 03/03/2016 ORLANDO MCDUFFIE Ot Z48.03 ENCOUNTER FOR CHANGE OR REMOVAL OF DRAIN 03/03/2016 ORLANDO MCDUFFIE Ot Z48.03 ENCOUNTER FOR CHANGE OR REMOVAL OF DRAIN 03/13/2016 ORLANDO MCDUFFIE Ot Z48.03 ENCOUNTER FOR CHANGE OR REMOVAL OF DRAIN 06/11/2016 ANDERS GRAY ASSOCIATION EXECUTIVE Ot 787.01 NAUSEA WITH VOMITING 06/11/2016 ANDERS GRAY ASSOCIATION EXECUTIVE Ot 789.00 ABDOMINAL PAIN, UNSPECIFIED SITE 06/12/2016 ANDERS GRAY ASSOCIATION EXECUTIVE Ot 787.01 NAUSEA WITH VOMITING 06/12/2016 ANDERS GRAY ASSOCIATION EXECUTIVE Ot 789.00 ABDOMINAL PAIN, UNSPECIFIED SITE 06/12/2016 FILIPE HAYWARD DOA Marizol Ot F17.210 NICOTINE DEPENDENCE, CIGARETTES, UNCOMPL 06/12/2016 FILIPE HAYWARD DOA K Ot J02.9 ACUTE PHARYNGITIS, UNSPECIFIED 06/12/2016 ZOHREH HAYWARD DO Ot J40 BRONCHITIS, NOT SPECIFIED ACUTE OR CH 06/12/2016 ZOHREH HAYWARD DO Ot R05 COUGH 06/12/2016 FILIPE HAYWARD DOA K Ot F17.210 NICOTINE DEPENDENCE, CIGARETTES, UNCOMPL 06/12/2016 FILIPE HAYWARD DOA Marizol Ot J02.9 ACUTE PHARYNGITIS, UNSPECIFIED 06/12/2016 FILIPE HAYWARD DOA K Ot J40 BRONCHITIS, NOT SPECIFIED ACUTE OR CH 06/12/2016 MAINOR ZOHREH Ot R05 COUGH 08/10/2016 ANDERS GRAY ASSOCIATION EXECUTIVE Ot 787.01 NAUSEA WITH VOMITING 08/10/2016 ANDERS GRAY R ASSOCIATION EXECUTIVE Ot 789.00 ABDOMINAL PAIN, UNSPECIFIED SITE 08/10/2016 ORLANDO MCDUFFIE Ot F17.210 NICOTINE DEPENDENCE, CIGARETTES, UNCOMPL 08/10/2016 ORLANDO MCDUFFIE Ot L50.9 URTICARIA, UNSPECIFIED 08/10/2016 ORLANDO MCDUFFIE Ot L73.9 FOLLICULAR DISORDER, UNSPECIFIED 08/10/2016 ORLANDO MCDUFFIE Ot R21 RASH AND OTHER NONSPECIFIC SKIN ERUPTION 08/12/2016 ORLANDO MCDUFFIE Ot F17.210 NICOTINE DEPENDENCE, CIGARETTES, UNCOMPL 08/12/2016 ORLANDO MCDUFFIE Ot L50.9 URTICARIA, UNSPECIFIED 08/12/2016 ORLANDO MCDUFFIE Ot L73.9 FOLLICULAR DISORDER, UNSPECIFIED 08/12/2016 ORLANDO MCDUFFIE Ot R21 RASH AND OTHER NONSPECIFIC SKIN ERUPTION 08/12/2016 ANDERS GRAY ASSOCIATION EXECUTIVE Ot 787.01 NAUSEA WITH VOMITING 08/12/2016 ANDERS GRAY ASSOCIATION EXECUTIVE Ot 789.00 ABDOMINAL PAIN, UNSPECIFIED SITE 08/12/2016 ERIKA LEWIS ASSOCIATION EXECUTIVE Ot L02.215 CUTANEOUS ABSCESS OF PERINEUM 08/14/2016 ERIKA LEWIS ASSOCIATION EXECUTIVE Ot L02.215 CUTANEOUS ABSCESS OF PERINEUM 08/14/2016 CADE REDMAN, DONNA T Ot F12.988 CANNABIS USE, UNSP WITH OTHER CANNABIS-I 08/14/2016 DONNA MOHAMUD MD T Ot F17.210 NICOTINE DEPENDENCE, CIGARETTES, UNCOMPL 08/14/2016 DONNA MOHAMUD MD Ot G43.A0 CYCLICAL VOMITING, NOT INTRACTABLE 08/14/2016 CADE REDMAN, DONNA Sunshine Ot R10.10 UPPER ABDOMINAL PAIN, UNSPECIFIED 08/14/2016 DONNA MOHAMUD MD Ot R11.2 NAUSEA WITH VOMITING, UNSPECIFIED 08/15/2016 ERIKA LEWIS ASSOCIATION EXECUTIVE Ot 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, UNCOMPLICATED 08/15/2016 ERIKA LEWIS APRN Ot F12.988 CANNABIS USE, UNSP WITH OTHER CANNABIS-I 08/15/2016 ERIKA LEWIS APRN Ot F13.10 SEDATIVE, HYPNOTIC OR ANXIOLYTIC ABUSE, 08/15/2016 ERIKA LEWIS ASSOCIATION EXECUTIVE Ot F17.210 NICOTINE DEPENDENCE, CIGARETTES, UNCOMPL 08/15/2016 ERIKA LEWIS ASSOCIATION EXECUTIVE Ot G43.A0 CYCLICAL VOMITING, NOT INTRACTABLE 08/18/2016 ERIKA LEWIS ASSOCIATION EXECUTIVE Ot 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, UNCOMPLICATED 08/18/2016 ERIKA LEWIS APRN Ot F12.988 CANNABIS USE, UNSP WITH OTHER CANNABIS-I 08/18/2016 ERIKA LEWIS APRN Ot F13.10 SEDATIVE, HYPNOTIC OR ANXIOLYTIC ABUSE, 08/18/2016 ERIKA LEWIS APRN Ot F17.210 NICOTINE DEPENDENCE, CIGARETTES, UNCOMPL 08/18/2016 ERIKA LEWIS APRN Ot G43.A0 CYCLICAL VOMITING, NOT INTRACTABLE 11/30/2017 ANDERS GRAY ASSOCIATION EXECUTIVE Ot 787.01 NAUSEA WITH VOMITING 11/30/2017 ANDERS GRAY ASSOCIATION EXECUTIVE Ot 789.00 ABDOMINAL PAIN, UNSPECIFIED SITE 11/30/2017 CADE REDMAN, DONNA Sunshine Ot F12.90 CANNABIS USE, UNSPECIFIED, UNCOMPLICATED 11/30/2017 CADE REDMAN, DONNA Sunshine Ot F32.9 MAJOR DEPRESSIVE DISORDER, SINGLE EPISOD 11/30/2017 DONNA MOHAMUD MD Ot F41.9 ANXIETY DISORDER, UNSPECIFIED 11/30/2017 DONNA MOHAMUD MD Ot G47.9 SLEEP DISORDER, UNSPECIFIED 11/30/2017 CADE REDMAN, DONNA Sunshine Ot J45.909 UNSPECIFIED ASTHMA, UNCOMPLICATED 11/30/2017 CADE REDMAN, DONNA Sunshine Ot R10.30 LOWER ABDOMINAL PAIN, UNSPECIFIED 11/30/2017 CADE REDMAN, DONNA Sunshine Ot Z32.02 ENCOUNTER FOR TEST, RESULT NEG 11/30/2017 DONNA MOHAMUD MD Ot Z77.22 CNTCT W AND EXPSR TO ENVIRON TOBACCO SMO 11/30/2017 DONNA MOHAMUD MD Ot Z87.01 PERSONAL HISTORY OF PNEUMONIA (RECURRENT 11/30/2017 DONNA MOHAMUD MD Ot Z87.42 PERSONAL HISTORY OF OTH DISEASES OF THE 11/30/2017 DONNA MOHAMUD MD Ot Z90.49 ACQUIRED ABSENCE OF OTHER SPECIFIED PART 12/01/2017 DONNA MOHAMUD MD Ot F12.90 CANNABIS USE, UNSPECIFIED, UNCOMPLICATED 12/01/2017 DONNA MOHAMUD MD Ot F32.9 MAJOR DEPRESSIVE DISORDER, SINGLE EPISOD 12/01/2017 DONNA MOHAMUD MD Ot F41.9 ANXIETY DISORDER, UNSPECIFIED 12/01/2017 DONNA MOHAMUD MD Ot G47.9 SLEEP DISORDER, UNSPECIFIED 12/01/2017 DONNA MOHAMUD MD Ot J45.909 UNSPECIFIED ASTHMA, UNCOMPLICATED 12/01/2017 DONNA MOHAMUD MD Ot R10.30 LOWER ABDOMINAL PAIN, UNSPECIFIED 12/01/2017 DONNA MOHAMUD MD Ot Z32.02 ENCOUNTER FOR TEST, RESULT NEG 12/01/2017 DONNA MOHAMUD MD, Ot Z77.22 CNTCT W AND EXPSR TO ENVIRON TOBACCO SMO 12/01/2017 DONNA MOHAMUD MD Ot Z87.01 PERSONAL HISTORY OF PNEUMONIA (RECURRENT 12/01/2017 DONNA MOHAMUD MD, Ot Z87.42 PERSONAL HISTORY OF OTH DISEASES OF THE 12/01/2017 DONNA MOHAMUD MD Ot Z90.49 ACQUIRED ABSENCE OF OTHER SPECIFIED PART 12/14/2017 ORLANDO MCDUFFIE Ot E86.9 VOLUME DEPLETION, UNSPECIFIED 12/14/2017 ORLANDO MCDUFFIE Ot F12.10 CANNABIS ABUSE, UNCOMPLICATED 12/14/2017 ORLANDO MCDUFFIE Ot F17.210 NICOTINE DEPENDENCE, CIGARETTES, UNCOMPL 12/14/2017 ORLANDO MCDUFFIE Ot F32.9 MAJOR DEPRESSIVE DISORDER, SINGLE EPISOD 12/14/2017 ORLANDO MCDUFFIE Ot F41.9 ANXIETY DISORDER, UNSPECIFIED 12/14/2017 ORLANDO MCDUFFIE Ot J45.909 UNSPECIFIED ASTHMA, UNCOMPLICATED 12/14/2017 ORLANDO MCDUFFIE Ot R10.2 PELVIC AND PERINEAL PAIN 12/14/2017 ORLANDO MCDUFFIE Ot Z33.1 STATE, INCIDENTAL 12/14/2017 ORLANDO MCDUFFIE Ot Z82.49 FAMILY HX OF ISCHEM HEART DIS AND OTH DI 12/14/2017 ORLANDO MCDUFFIE Ot Z87.01 PERSONAL HISTORY OF PNEUMONIA (RECURRENT 12/14/2017 ORLANDO MCDUFFIE Ot Z87.448 PERSONAL HISTORY OF OTHER DISEASES OF UR 12/14/2017 ORLANDO MCDUFFIE Ot Z90.49 ACQUIRED ABSENCE OF OTHER SPECIFIED PART Procedures Code Description [place] [id number] STREP A (IN-HOUSE) 11/05/2012 80824 UA LONG DIP 07/14/2013 33776 URINE TEST (IN- HOUSE) 07/14/2013 15584 ROUTINE VENIPUNCTURE 09/28/2013 17774 H PYLORI (IN-HOUSE) 09/28/2013 97028 ESR/SED RATE 09/28/2013 62471 US GALLBLADDER ULTRASOUND 09/29/2013 07806 CBC W/MANUAL DIF (order) 09/29/2013 [id number] COMPLETE BLOOD COUNT NO DIFF (CBC Result) 09/29/2013 42049 DIFFERENTIAL WBC COUNT (CBC DIFF RESULT) 09/29/2013 02296 CRP 09/29/2013 11585 CELIAC DISEASE ANALYZER 09/30/2013 77556 H PYLORI (IN-HOUSE) 10/27/2013 45.16 ESOPHAGOGASTRODUODENOSCOPY [ EGD] W/CLOSE 10/31/2013 51.23 LAPAROSCOPIC CHOLECYSTECTOMY 11/02/2013 50974 URINE DRUG SCREEN (IN-HOUSE ) 11/17/2013 33181 TEST, URINE (IN- HOUSE) 11/17/2013 47.01 LAPAROSCOP APPENDECTOMY 12/05/2013 65.25 OT LAPAROSCOP LOCAL EXCIS/ DESTRUCT OVAR 12/05/2013 66.61 DESTROY FALLOP TUBE LES 12/05/2013 69.19 DESTRUC UTER SUPPORT NEC 12/05/2013 70.32 EXCIS CUL-DE-SAC LESION 12/05/2013 GASTROENT [facility], GI 12/14/2013 24382 TEST, URINE (IN- HOUSE) 07/12/2014 [facility]ILY [facility] GRAY 07/30/2014 11995 TB TEST INTRADERMAL 09/20/2014 Results Test Result Range Complete blood count (CBC) with automated white blood cell (WBC) differential - 08/14/16 04:55 Blood leukocytes automated count (number/volume) 8.0 10*3/uL 4.3-11.0 Blood erythrocytes automated count (number/volume) 4.89 10*6/uL 4.35-5.85 Venous blood hemoglobin measurement (mass/volume) 14.6 g/dL 11.5-16.0 Blood hematocrit (volume fraction) 41 % 35-52 Automated erythrocyte mean corpuscular volume 84 [foz_us] 80-99 Automated erythrocyte mean corpuscular hemoglobin (mass per erythrocyte) 30 pg 25-34 Automated erythrocyte mean corpuscular hemoglobin concentration measurement ( mass/volume) 35 g/dL 32-36 Automated erythrocyte distribution width ratio 13.0 % 10.0-14.5 Automated blood platelet count (count/volume) 350 10*3/uL 130-400 Automated blood platelet mean volume measurement 10.1 [foz_us] 7.4-10.4 Automated blood neutrophils/100 leukocytes 65 % 42-75 Automated blood lymphocytes/100 leukocytes 24 % 12-44 Blood monocytes/100 leukocytes 11 % 0-12 Automated blood eosinophils/100 leukocytes 0 % 0-10 Automated blood basophils/100 leukocytes 0 % 0-10 Blood neutrophils automated count (number/volume) 5.2 10*3 1.8-7.8 Blood lymphocytes automated count (number/volume) 1.9 10*3 1.0-4.0 Blood monocytes automated count (number/volume) 0.9 10*3 0.0-1.0 Automated eosinophil count 0.0 10*3/uL 0.0-0.3 Automated blood basophil count (count/volume) 0.0 10*3/uL 0.0-0.1 Serum or plasma choriogonadotropin ( test) detection - 08/14/16 04:55 Serum or plasma choriogonadotropin ( test) detection NEGATIVE NEGATIVE Blood manual differential performed detection - 08/14/16 04:55 Blood monocytes/100 leukocytes 7 % NRG Manual blood segmented neutrophils/100 leukocytes 63 % NRG Blood band neutrophils/100 leukocytes 0 % NRG Manual blood lymphocytes/100 leukocytes 19 % NRG Manual eosinophils/100 leukocytes in nose 0 % NRG Manual blood basophils/100 leukocytes 0 % NRG Blood lymphocytes variant/100 leukocytes 11 % NRG Blood toxic granules detection by light microscopy 1+ NRG Erythrocyte sedimentation rate by westergren method - 08/14/16 04:55 Erythrocyte sedimentation rate by westergren method 5 mm 0-20 Comprehensive metabolic panel - 08/14/16 04:55 Serum or plasma sodium measurement (moles/volume) 139 mmol/L 135-145 Serum or plasma potassium measurement (moles/volume) 3.6 mmol/L 3.6-5.0 Serum or plasma chloride measurement (moles/volume) 102 mmol/L 98-107 Carbon dioxide 20 mmol/L 21-32 Serum or plasma anion gap determination (moles/volume) 17 mmol/L 5-14 Serum or plasma urea nitrogen measurement (mass/volume) 12 mg/dL 7-18 Serum or plasma creatinine measurement (mass/volume) 0.76 mg/dL 0.60-1.30 Serum or plasma urea nitrogen/creatinine mass ratio 16 NRG Serum or plasma creatinine measurement with calculation of estimated glomerular filtration rate > NRG Serum or plasma glucose measurement (mass/volume) 109 mg/dL 70-105 Serum or plasma calcium measurement (mass/volume) 9.6 mg/dL 8.5-10.1 Serum or plasma total bilirubin measurement (mass/volume) 0.7 mg/dL 0.1-1.0 Serum or plasma alkaline phosphatase measurement (enzymatic activity/volume) 83 U/L 40-136 Serum or plasma aspartate aminotransferase measurement (enzymatic activity/ volume) 12 U/L 5-34 Serum or plasma alanine aminotransferase measurement (enzymatic activity/volume ) 33 U/L 0-55 Serum or plasma protein measurement (mass/volume) 7.1 g/dL 6.4-8.2 Serum or plasma albumin measurement (mass/volume) 4.5 g/dL 3.2-4.5 Magnesium - 08/14/16 04:55 Magnesium 2.1 mg/dL 1.8-2.4 Lipase - 08/14/16 04:55 Lipase 6 U/L 8-78 Serum or plasma ethanol measurement (mass/volume) - 08/14/16 04:55 Serum or plasma ethanol measurement (mass/volume) < mg/dL <10 Complete urinalysis with reflex to culture - 08/14/16 06:00 Urine color determination YELLOW NRG Urine clarity determination SLIGHTLY CLOUDY NRG Urine pH measurement by test strip 8 5-9 Specific gravity of urine by test strip 1.015 1.016- 1.022 Urine protein assay by test strip, semi-quantitative 2+ NEGATIVE Urine glucose detection by automated test strip NEGATIVE NEGATIVE Erythrocytes detection in urine sediment by light microscopy NEGATIVE NEGATIVE Urine ketones detection by automated test strip 4+ NEGATIVE Urine nitrite detection by test strip NEGATIVE NEGATIVE Urine total bilirubin detection by test strip NEGATIVE NEGATIVE Urine urobilinogen measurement by automated test strip (mass/volume) 1 mg/dL NORMAL Urine leukocyte esterase detection by dipstick 1+ NEGATIVE Automated urine sediment erythrocyte count by microscopy (number/high power field) NONE NRG Automated urine sediment leukocyte count by microscopy (number/high power field ) [HPF] NRG Bacteria detection in urine sediment by light microscopy MODERATE NRG Squamous epithelial cells detection in urine sediment by light microscopy 5-10 NRG Crystals detection in urine sediment by light microscopy NONE NRG Casts detection in urine sediment by light microscopy NONE NRG Mucus detection in urine sediment by light microscopy MODERATE NRG Complete urinalysis with reflex to culture YES NRG Yeast detection in urine sediment by light microscopy FEW NRG Urine drug screening test - 08/14/16 06:00 Urine phencyclidine detection by screening method NEGATIVE NEGATIVE Urine benzodiazepines detection by screening method POSITIVE NEGATIVE Urine cocaine detection NEGATIVE NEGATIVE Urine amphetamines detection by screening method NEGATIVE NEGATIVE Urine methamphetamine detection by screening method NEGATIVE NEGATIVE Urine cannabinoids detection by screening method POSITIVE NEGATIVE Urine opiates detection by screening method POSITIVE NEGATIVE Urine barbiturates detection NEGATIVE NEGATIVE Screening urine tricyclic antidepressants detection NEGATIVE NEGATIVE Urine methadone detection by screening method NEGATIVE NEGATIVE Urine oxycodone detection POSITIVE NEGATIVE Urine propoxyphene detection NEGATIVE NEGATIVE Urine buprenophrine screen NEGATIVE NEGATIVE Bacterial urine culture - 08/14/16 06:00 Bacterial urine culture [id number] NRG COLONY COUNT 10,000/ML - 100,000/ML NRG FREE TEXT ENTRY 3 MIXED GRAM POSITIVE ARAVIND <10,000/ML NRG Complete blood count (CBC) with automated white blood cell (WBC) differential - 08/15/16 20:20 Blood leukocytes automated count (number/volume) 10.7 10*3/uL 4.3-11.0 Blood erythrocytes automated count (number/volume) 5.32 10*6/uL 4.35-5.85 Venous blood hemoglobin measurement (mass/volume) 15.7 g/dL 11.5-16.0 Blood hematocrit (volume fraction) 44 % 35-52 Automated erythrocyte mean corpuscular volume 84 [foz_us] 80-99 Automated erythrocyte mean corpuscular hemoglobin (mass per erythrocyte) 30 pg 25-34 Automated erythrocyte mean corpuscular hemoglobin concentration measurement ( mass/volume) 35 g/dL 32-36 Automated erythrocyte distribution width ratio 12.7 % 10.0-14.5 Automated blood platelet count (count/volume) 360 10*3/uL 130-400 Automated blood platelet mean volume measurement 9.9 [foz_us] 7.4-10.4 Automated blood neutrophils/100 leukocytes 76 % 42-75 Automated blood lymphocytes/100 leukocytes 17 % 12-44 Blood monocytes/100 leukocytes 7 % 0-12 Automated blood eosinophils/100 leukocytes 0 % 0-10 Automated blood basophils/100 leukocytes 1 % 0-10 Blood neutrophils automated count (number/volume) 8.2 10*3 1.8-7.8 Blood lymphocytes automated count (number/volume) 1.8 10*3 1.0-4.0 Blood monocytes automated count (number/volume) 0.7 10*3 0.0-1.0 Automated eosinophil count 0.0 10*3/uL 0.0-0.3 Automated blood basophil count (count/volume) 0.1 10*3/uL 0.0-0.1 Comprehensive metabolic panel - 08/15/16 20:20 Serum or plasma sodium measurement (moles/volume) 136 mmol/L 135-145 Serum or plasma potassium measurement (moles/volume) 4.1 mmol/L 3.6-5.0 Serum or plasma chloride measurement (moles/volume) 101 mmol/L 98-107 Carbon dioxide 18 mmol/L 21-32 Serum or plasma anion gap determination (moles/volume) 17 mmol/L 5-14 Serum or plasma urea nitrogen measurement (mass/volume) 10 mg/dL 7-18 Serum or plasma creatinine measurement (mass/volume) 0.73 mg/dL 0.60-1.30 Serum or plasma urea nitrogen/creatinine mass ratio 14 NRG Serum or plasma creatinine measurement with calculation of estimated glomerular filtration rate > NRG Serum or plasma glucose measurement (mass/volume) 91 mg/dL 70-105 Serum or plasma calcium measurement (mass/volume) 9.6 mg/dL 8.5-10.1 Serum or plasma total bilirubin measurement (mass/volume) 1.1 mg/dL 0.1-1.0 Serum or plasma alkaline phosphatase measurement (enzymatic activity/volume) 82 U/L 40-136 Serum or plasma aspartate aminotransferase measurement (enzymatic activity/ volume) 47 U/L 5-34 Serum or plasma alanine aminotransferase measurement (enzymatic activity/volume ) 47 U/L 0-55 Serum or plasma protein measurement (mass/volume) 7.9 g/dL 6.4-8.2 Serum or plasma albumin measurement (mass/volume) 4.7 g/dL 3.2-4.5 Complete urinalysis with reflex to culture - 08/15/16 21:44 Urine color determination YELLOW NRG Urine clarity determination CLEAR NRG Urine pH measurement by test strip 8 5-9 Specific gravity of urine by test strip 1.015 1.016- 1.022 Urine protein assay by test strip, semi-quantitative NEGATIVE NEGATIVE Urine glucose detection by automated test strip NEGATIVE NEGATIVE Erythrocytes detection in urine sediment by light microscopy 4+ NEGATIVE Urine ketones detection by automated test strip 4+ NEGATIVE Urine nitrite detection by test strip NEGATIVE NEGATIVE Urine total bilirubin detection by test strip NEGATIVE NEGATIVE Urine urobilinogen measurement by automated test strip (mass/volume) 1 mg/dL NORMAL Urine leukocyte esterase detection by dipstick NEGATIVE NEGATIVE Automated urine sediment erythrocyte count by microscopy (number/high power field) [HPF] NRG Automated urine sediment leukocyte count by microscopy (number/high power field ) NONE NRG Bacteria detection in urine sediment by light microscopy NONE NRG Squamous epithelial cells detection in urine sediment by light microscopy 5-10 NRG Crystals detection in urine sediment by light microscopy PRESENT NRG Casts detection in urine sediment by light microscopy NONE NRG Mucus detection in urine sediment by light microscopy SMALL NRG Complete urinalysis with reflex to culture NO NRG Amorphous sediment detection in urine sediment by light microscopy FEW CHAZ PHOSPHATE NRG Urine drug screening test - 08/15/16 21:50 Urine phencyclidine detection by screening method NEGATIVE NEGATIVE Urine benzodiazepines detection by screening method POSITIVE NEGATIVE Urine cocaine detection NEGATIVE NEGATIVE Urine amphetamines detection by screening method NEGATIVE NEGATIVE Urine methamphetamine detection by screening method NEGATIVE NEGATIVE Urine cannabinoids detection by screening method POSITIVE NEGATIVE Urine opiates detection by screening method POSITIVE NEGATIVE Urine barbiturates detection NEGATIVE NEGATIVE Screening urine tricyclic antidepressants detection NEGATIVE NEGATIVE Urine methadone detection by screening method NEGATIVE NEGATIVE Urine oxycodone detection POSITIVE NEGATIVE Urine propoxyphene detection NEGATIVE NEGATIVE Urine buprenophrine screen NEGATIVE NEGATIVE Urine beta human chorionic gonadotropin (hCG) measurement - 11/30/17 14:20 Urine beta human chorionic gonadotropin (hCG) measurement POSITIVE NEGATIVE Complete urinalysis with reflex to culture - 11/30/17 14:20 Urine color determination YELLOW NRG Urine clarity determination CLEAR NRG Urine pH measurement by test strip 7 5-9 Specific gravity of urine by test strip 1.005 1.016- 1.022 Urine protein assay by test strip, semi-quantitative NEGATIVE NEGATIVE Urine glucose detection by automated test strip NEGATIVE NEGATIVE Erythrocytes detection in urine sediment by light microscopy NEGATIVE NEGATIVE Urine ketones detection by automated test strip NEGATIVE NEGATIVE Urine nitrite detection by test strip NEGATIVE NEGATIVE Urine total bilirubin detection by test strip NEGATIVE NEGATIVE Urine urobilinogen measurement by automated test strip (mass/volume) NORMAL NORMAL Urine leukocyte esterase detection by dipstick NEGATIVE NEGATIVE Automated urine sediment erythrocyte count by microscopy (number/high power field) NONE NRG Automated urine sediment leukocyte count by microscopy (number/high power field ) NONE NRG Bacteria detection in urine sediment by light microscopy NEGATIVE NRG Squamous epithelial cells detection in urine sediment by light microscopy 10-25 NRG Crystals detection in urine sediment by light microscopy NONE NRG Casts detection in urine sediment by light microscopy NONE NRG Mucus detection in urine sediment by light microscopy NEGATIVE NRG Complete urinalysis with reflex to culture NO NRG Complete urinalysis with reflex to culture - 12/09/17 21:11 Urine color determination YELLOW NRG Urine clarity determination CLEAR NRG Urine pH measurement by test strip 8 5-9 Specific gravity of urine by test strip 1.015 1.016- 1.022 Urine protein assay by test strip, semi-quantitative NEGATIVE NEGATIVE Urine glucose detection by automated test strip NEGATIVE NEGATIVE Erythrocytes detection in urine sediment by light microscopy NEGATIVE NEGATIVE Urine ketones detection by automated test strip 1+ NEGATIVE Urine nitrite detection by test strip NEGATIVE NEGATIVE Urine total bilirubin detection by test strip NEGATIVE NEGATIVE Urine urobilinogen measurement by automated test strip (mass/volume) NORMAL NORMAL Urine leukocyte esterase detection by dipstick NEGATIVE NEGATIVE Automated urine sediment erythrocyte count by microscopy (number/high power field) NONE NRG Automated urine sediment leukocyte count by microscopy (number/high power field ) NONE NRG Bacteria detection in urine sediment by light microscopy NEGATIVE NRG Squamous epithelial cells detection in urine sediment by light microscopy >50 NRG Crystals detection in urine sediment by light microscopy PRESENT NRG Casts detection in urine sediment by light microscopy NONE NRG Mucus detection in urine sediment by light microscopy NEGATIVE NRG Complete urinalysis with reflex to culture NO NRG Amorphous sediment detection in urine sediment by light microscopy RARE CHAZ PHOSPHATE NRG Complete urinalysis with reflex to culture - 12/15/17 18:05 Urine color determination YELLOW NRG Urine clarity determination CLEAR NRG Urine pH measurement by test strip 7 5-9 Specific gravity of urine by test strip 1.010 1.016- 1.022 Urine protein assay by test strip, semi-quantitative NEGATIVE NEGATIVE Urine glucose detection by automated test strip NEGATIVE NEGATIVE Erythrocytes detection in urine sediment by light microscopy NEGATIVE NEGATIVE Urine ketones detection by automated test strip 3+ NEGATIVE Urine nitrite detection by test strip NEGATIVE NEGATIVE Urine total bilirubin detection by test strip NEGATIVE NEGATIVE Urine urobilinogen measurement by automated test strip (mass/volume) NORMAL NORMAL Urine leukocyte esterase detection by dipstick 1+ NEGATIVE Automated urine sediment erythrocyte count by microscopy (number/high power field) NONE NRG Automated urine sediment leukocyte count by microscopy (number/high power field ) [HPF] NRG Bacteria detection in urine sediment by light microscopy NONE NRG Squamous epithelial cells detection in urine sediment by light microscopy 5-10 NRG Crystals detection in urine sediment by light microscopy NONE NRG Casts detection in urine sediment by light microscopy NONE NRG Mucus detection in urine sediment by light microscopy PRESENT NRG Complete urinalysis with reflex to culture NO NRG Urine drug screening test - 12/15/17 18:05 Urine phencyclidine detection by screening method NEGATIVE NEGATIVE Urine benzodiazepines detection by screening method NEGATIVE NEGATIVE Urine cocaine detection NEGATIVE NEGATIVE Urine amphetamines detection by screening method NEGATIVE NEGATIVE Urine methamphetamine detection by screening method NEGATIVE NEGATIVE Urine cannabinoids detection by screening method POSITIVE NEGATIVE Urine opiates detection by screening method NEGATIVE NEGATIVE Urine barbiturates detection NEGATIVE NEGATIVE Screening urine tricyclic antidepressants detection NEGATIVE NEGATIVE Urine methadone detection by screening method NEGATIVE NEGATIVE Urine oxycodone detection POSITIVE NEGATIVE Urine propoxyphene detection NEGATIVE NEGATIVE Complete blood count (CBC) with automated white blood cell (WBC) differential - 12/15/17 18:17 Blood leukocytes automated count (number/volume) 9.0 10*3/uL 4.3-11.0 Blood erythrocytes automated count (number/volume) 4.01 10*6/uL 4.35-5.85 Venous blood hemoglobin measurement (mass/volume) 12.9 g/dL 11.5-16.0 Blood hematocrit (volume fraction) 36 % 35-52 Automated erythrocyte mean corpuscular volume 89 [foz_us] 80-99 Automated erythrocyte mean corpuscular hemoglobin (mass per erythrocyte) 32 pg 25-34 Automated erythrocyte mean corpuscular hemoglobin concentration measurement ( mass/volume) 36 g/dL 32-36 Automated erythrocyte distribution width ratio 12.3 % 10.0-14.5 Automated blood platelet count (count/volume) 269 10*3/uL 130-400 Automated blood platelet mean volume measurement 9.3 [foz_us] 7.4-10.4 Automated blood neutrophils/100 leukocytes 69 % 42-75 Automated blood lymphocytes/100 leukocytes 27 % 12-44 Blood monocytes/100 leukocytes 4 % 0-12 Automated blood eosinophils/100 leukocytes 0 % 0-10 Automated blood basophils/100 leukocytes 0 % 0-10 Blood neutrophils automated count (number/volume) 6.2 10*3 1.8-7.8 Blood lymphocytes automated count (number/volume) 2.4 10*3 1.0-4.0 Blood monocytes automated count (number/volume) 0.4 10*3 0.0-1.0 Automated eosinophil count 0.0 10*3/uL 0.0-0.3 Automated blood basophil count (count/volume) 0.0 10*3/uL 0.0-0.1 ABO+Rh group - 12/15/17 18:17 ABO+Rh group OP NRG Whole blood basic metabolic panel - 12/15/17 18:17 Serum or plasma sodium measurement (moles/volume) 135 mmol/L 135-145 Serum or plasma potassium measurement (moles/volume) 3.2 mmol/L 3.6-5.0 Serum or plasma chloride measurement (moles/volume) 108 mmol/L 98-107 Carbon dioxide 18 mmol/L 21-32 Serum or plasma anion gap determination (moles/volume) 9 mmol/L 5-14 Serum or plasma urea nitrogen measurement (mass/volume) 5 mg/dL 7-18 Serum or plasma creatinine measurement (mass/volume) 0.55 mg/dL 0.60-1.30 Serum or plasma urea nitrogen/creatinine mass ratio 9 NRG Serum or plasma creatinine measurement with calculation of estimated glomerular filtration rate > NRG Serum or plasma glucose measurement (mass/volume) 84 mg/dL 70-105 Serum or plasma calcium measurement (mass/volume) 8.3 mg/dL 8.5-10.1 Serum or plasma choriogonadotropin measurement (units/volume) - 12/15/17 18:17 Serum or plasma choriogonadotropin measurement (units/volume) 89504 m[iU]/mL <5 Encounters ACCT No. Visit Date/Time Discharge Status Pt. Type Provider Facility Loc./Unit Complaint [id number] 09/20/2014 10:53:00 09/20/2014 23:59:59 CLS Outpatient FELICITY HIRSCH APRN [id number] 07/28/2014 14:45:00 07/28/2014 23:59:59 CLS Outpatient JEAN NOYOLA MD [id number] 07/12/2014 11:53:00 07/12/2014 23:59:59 CLS Outpatient FELICITY HIRSCH APRN [id number] 01/18/2014 13:03:00 01/18/2014 23:59:59 CLS Outpatient CAYDEN RAZA DO [id number] 12/14/2013 15:32:00 12/14/2013 23:59:59 CLS Outpatient ALPHONSE ARDON MD [id number] 11/17/2013 10:52:00 11/17/2013 23:59:59 CLS Outpatient LENCHO BOWERS APRN [id number] 10/27/2013 17:14:00 10/27/2013 23:59:59 CLS Outpatient LENCHO BOWERS APRN [id number] 09/28/2013 16:40:00 09/28/2013 23:59:59 CLS Outpatient JEAN NOYOLA MD [id number] 09/06/2013 10:41:00 09/06/2013 23:59:59 CLS Outpatient JEAN NOYOLA MD [id number] 08/23/2013 10:52:00 08/23/2013 23:59:59 CLS Outpatient JEAN NOYOLA MD [id number] 08/08/2013 17:51:00 08/08/2013 23:59:59 CLS Outpatient CAYDEN RAZA DO [id number] 07/14/2013 13:19:00 07/14/2013 23:59:59 CLS Outpatient LENCHO BOWERS APRN [id number] 11/11/2012 14:11:00 11/11/2012 23:59:59 CLS Outpatient [id number] 11/05/2012 14:42:00 11/05/2012 23:59:59 CLS Outpatient [id number] 12/15/2017 17:45:00 12/15/2017 20:30:00 DIS Emergency ZOHREH HAYWARD DO [facility] ER ABD PAIN; 5-6 WKS [id number] 12/09/2017 20:54:00 12/09/2017 23:40:00 DIS Outpatient OR[place]O MCDUFFIE [facility] ER EDOMETRIOSIS [id number] 11/30/2017 12:31:00 11/30/2017 14:57:00 DIS Emergency DONNA MOHAMUD MD [facility] ER PELVIC PAIN/SWELLING [id number] 08/15/2016 19:40:00 08/15/2016 22:44:00 DIS Emergency ERIKA LEWIS APRN [facility] ER STOMACH PAIN VOMITING [id number] 08/14/2016 04:53:00 08/14/2016 07:02:00 DIS Emergency DONNA MOHAMUD MD [facility] ER ABD PAIN [id number] 08/12/2016 13:32:00 08/12/2016 13:53:00 DIS Emergency ERIKA LEWIS APRN [facility] ER ABSCESS IN PELVIC AREA [id number] 08/10/2016 15:28:00 08/10/2016 17:04:00 DIS Emergency [place]O MCDUFFIE [facility] ER POSS MRSA IN PELVIC AREA [id number] 06/11/2016 23:33:00 06/12/2016 00:46:00 DIS Emergency ZOHREH HAYWARD DO [facility] ER POSS BRONCHITIS [id number] 03/01/2016 13:10:00 03/01/2016 13:28:00 DIS Emergency OR[place]O MCDUFFIE [facility] ER TUBE REMOVAL [id number] 02/25/2016 17:02:00 02/25/2016 18:03:00 DIS Emergency OR[place]O MCDUFFIE [facility] ER WOUND CHECK [id number] 02/22/2016 12:02:00 02/22/2016 15:23:00 DIS Emergency ERIKA LEWIS APRN [facility] ER ABCESS ON BUTTOCKS [id number] 02/18/2016 17:25:00 02/18/2016 18:34:00 DIS Emergency MYNOR GUILLAUME MD [facility] ER SKIN RASH/WOUND [id number] 12/11/2015 17:28:00 12/11/2015 19:48:00 DIS Emergency OR[place]O MCDUFFIE [facility] ER ABD PAIN [id number] 12/10/2015 09:39:00 12/10/2015 13:21:00 DIS Emergency DONNA MOHAMUD MD [facility] ER ABD PAIN/VOMITING [id number] 10/10/2015 07:47:00 10/10/2015 11:21:00 DIS Emergency MYNOR GUILLAUME MD [facility] ER ABD PAIN [id number] 10/08/2015 14:37:00 10/08/2015 16:38:00 DIS Emergency DONNA MOHAMUD MD [facility] ER ABD PAIN [id number] 10/04/2015 12:02:00 10/04/2015 15:05:00 DIS Emergency OR[place]O MCDUFFIE [facility] ER STOMACH PAIN [id number] 09/29/2015 08:43:00 09/29/2015 13:13:00 DIS Emergency MYNOR GUILLAUME MD [facility] ER ABD PAIN [id number] 09/29/2015 01:21:00 09/29/2015 02:43:00 DIS Emergency MARYSOL GORDON DO [facility] ER ABDOMINAL CRAMPS [id number] 09/05/2015 03:51:00 09/05/2015 06:10:00 DIS Emergency ZOHREH HAYWARD DO [facility] ER ABD PAIN [id number] 09/01/2015 21:17:00 09/01/2015 22:43:00 DIS Emergency ZOHREH HAYWARD DO [facility] ER NAUSEA/VOMITING [id number] 08/20/2015 16:18:00 08/21/2015 11:06:00 DIS Inpatient JASON LOEPZ MD [facility] 4TH HYPOKALEMIA HYPONATREMIA ABD PAIN [id number] 08/14/2015 13:12:00 08/14/2015 15:36:00 DIS Emergency ERIKA LEWIS [employer] EXEC[employer]IVE [facility] ER VOMITING [id number] 05/20/2015 11:04:00 05/20/2015 13:53:00 DIS Emergency ERIKA LEWIS [employer] EXEC[employer] [facility] ER VOMITING [id number] 05/15/2015 16:05:00 05/15/2015 19:40:00 DIS Emergency [place]O MCDUFFIE [facility] ER N/V,ABD PAIN [id number] 05/10/2015 21:37:00 05/13/2015 10:55:00 DIS Inpatient JASON LOPEZ MD [facility] 4TH CYCLIC VOMITING [id number] 04/21/2015 13:36:00 04/21/2015 17:38:00 DIS Emergency ORLANDO MCDUFFIE [facility] ER VOMTITING [id number] 04/17/2015 16:18:00 04/17/2015 18:40:00 DIS Emergency OR[place]O MCDUFFIE [facility] ER VOMITING [id number] 04/13/2015 19:30:00 04/15/2015 11:55:00 DIS Inpatient JEAN NOYOLA MD [facility] SURGICAL INTRACTABLE N/V, DEHYDRATION [id number] 04/11/2015 11:02:00 04/11/2015 13:30:00 DIS Emergency ERIKA LEWIS APRN [facility] ER VOMITING [id number] 10/04/2014 10:43:00 10/04/2014 11:12:00 DIS Emergency BESS BARRETT MD [facility] ER COUGH/CONGESTION SORE THROAT [id number] 09/05/2014 17:37:00 09/05/2014 19:56:00 DIS Emergency DONNA MOHAMUD MD [facility] ER VOMTITING [id number] 12/18/2013 16:38:00 12/21/2013 15:50:00 DIS Inpatient JEAN NOYOLA MD [facility] 4TH INTRACTABLE VOMITING [id number] 11/30/2013 15:00:00 12/07/2013 14:45:00 DIS Inpatient JEAN NOYOLA MD [facility] 4TH INTRACTABLE VOMITING AND ABD PAIN UTI [id number] 11/29/2013 12:46:00 11/29/2013 16:59:00 DIS Emergency ERIKA LEWIS [employer]EC[employer]IVE [facility] ER VOMITING [id number] 10/31/2013 15:12:00 11/02/2013 19:30:00 DIS Inpatient LEAH LEYVA MD [facility] 4TH CHRONIC ABD PAIN;NAUSEA/ VOMITING;BILIARY DYSKENISA [id number] 10/25/2013 08:26:00 10/25/2013 23:59:59 CLS Outpatient ANDERS GRAY APRN [facility] RAD NAUSEA/VOMITING ABDOMINAL PAIN [id number] 08/17/2013 22:59:00 08/18/2013 19:50:00 DIS Inpatient JEAN NOYOLA MD [facility] 4TH INTRACTABLE N/V, LEUKOCYTOSIS,ELECTROLYTE DISTURBA [id number] 08/17/2013 15:20:00 08/17/2013 18:30:00 DIS Emergency ERIKA LEWIS [employer] EXEC[employer]IVE [facility] ER MULTIPLE COMPLAINTS [id number] 03/23/2013 16:10:00 03/23/2013 23:59:59 CLS Outpatient [id number] 01/15/2016 12:41:00 Document Registration [id number] 09/05/2014 17:37:00 Document Registration [id number] 02/06/2011 18:18:00 Document Registration [id number] 08/14/2009 11:15:00 Document Registration [id number] 06/27/2009 10:07:00 Document Registration
[2017-12-21] MEDS ORDERED: CLIN300C11 PO (11:21)
== END 2017-12-17 11:05 | disposition left against medical advice (07) ==
LOC: EDUNIT# 10:05 → ER 10:06
DX: R11.10 Vomiting, unspecified (principal)

== ENCOUNTER 2017-12-19 10:49 | Emergency (ER) | payer MEDICAID ==
[~2017-12-19] VITALS: Ht 154.9 cm; Wt 48.1 kg
[2017-12-19 13:06] LABS: BILIRUBIN,URINE NEGATIVE (NEGATIVE); CLARITY,URINE SLIGHTLY CLOUDY; COLOR,URINE YELLOW; GLUCOSE, URINE (UA) NEGATIVE (NEGATIVE); KETONES,URINE 2+ (NEGATIVE); LEUKOCYTE ESTERASE ,URINE NEGATIVE (NEGATIVE); NITRITE,URINE NEGATIVE (NEGATIVE); PH,URINE 6.5 (5-9); PROTEIN,URINE NEGATIVE (NEGATIVE); UROBILINOGEN,URINE NORMAL (NORMAL)
--- NOTE | 2017-12-19 13:07 | ED GU-Female ---
General Chief Complaint: Abdominal/GI Problems Stated Complaint: VOMITING Nursing Triage Note: Patient advises vomiting x 1 week that has not improved. Pt. has been seen in the ER multiple times this week secondary to chief complaint. Nursing Sepsis Screen: No Definite Risk History of Present Illness Date Seen by Provider: Dec 19, 2017 Time Seen by Provider: 12:45 Initial Comments 22-year-old female presents for recurrent hyperemesis. She was seen here for similar complaints on November 30, December 09, December 15 December 16, and December 17. She has a long-standing history of marijuana, inserted diazepam and opioids use. Her ultrasound at last visit she is approximately 6 weeks and 4 days gestation. She reports no Ativan use in the last 24 hours and no marijuana use in the last 48 hours. She removed her last fentanyl patch yesterday and reports a Dr. Self is no longer prescribing her fentanyl. She reports vomiting for the last 24 hours with inability to keep any food or fluids in. She has not tried any clear Gatorade or Sprite. She does report she is taking the Flagyl that she was prescribed on December 16, she reports the nausea and vomiting was present before she started the Flagyl. She has a history of cyclical vomiting and cannabinoids induced vomiting. She denies any vaginal bleeding or discharge today. Timing/Duration: constant Severity/Quality: mild Associated Symptoms: abdominal pain Allergies and Home Medications Allergies Coded Allergies: No Known Drug Allergies (Unverified , 01/12/16) Home Medications Doxylamine/Pyridoxine HCl 1 Each Tablet.dr, 2 EACH PO HS Prescribed by: ZOHREH HAYWARD on 12/15/172010 Metronidazole 500 Mg Tablet, 500 MG PO BID Prescribed by: ERIKA LEWIS on 12/16/17 1438 Patient Home Medication List Home Medication List Reviewed: Yes Constitutional: no symptoms reported, see HPI Gastrointestinal: see HPI, abdominal pain, loss of appetite, nausea, vomiting : Yes All Other Systemes Reviewed Negative Unless Noted: Yes Past Pkynqye-Rsjtzc-Ziyqmm Hx Patient Social History Alcohol Use: Denies Use Recreational Drug Use: Yes Drug of Choice: THC, FENTANYL, OXYCODONE Type Used: Cigarettes 2nd Hand Smoke Exposure: Yes Recent Foreign Travel: No Contact w/Someone Who Travel: No Recent Infectious Disease Expo: No Recent Hopitalizations: No Physical Abuse: No Sexual Abuse: No Immunizations Up To Date Tetanus Booster (TDap): Less than 5yrs PED Vaccines UTD: Yes Date of Pneumonia Vaccine: Nov 12, 2013 Date of Influenza Vaccine: Sep 11, 2015 Seasonal Allergies Seasonal Allergies: No Surgeries History of Surgeries: Yes (LAPAROSCOPY-OVARIAN CYST, ENDOMETRIOSIS; EGD) Surgeries: Abdominal, Appendectomy, Gallbladder Respiratory History of Respiratory Disorde: Yes Respiratory Disorders: Asthma, Pneumonia Currently Using CPAP: No Currently Using BIPAP: No Cardiovascular History of Cardiac Disorders: No Neurological History of Neurological Disord: No Reproductive System : Yes Hx Reproductive Disorders: Yes (LT OVARIAN CYST) Sexually Transmitted Disease: No HIV/AIDS: No Female 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, Ovarian Cyst Genitourinary History of Genitourinary Disor: No Gastrointestinal History of Gastrointestinal Di: Yes (CHRONIC ABDOMINAL PAIN, CHRONIC N/V, CANNABIS HYPEREMESIS SYNDROME) Musculoskeletal History of Musculoskeletal Dis: No Endocrine History of Endocrine Disorders: No HEENT History of HEENT Disorders: No Cancer History of Cancer: No Psychosocial History of Psychiatric Problem: Yes ("CYCLIC VOMITING", marijuana abuse) Behavioral Health Disorders: Sleep Difficulties, Anxiety, Depression Suicide Risk Score: 0 Integumentary History of Skin or Integumenta: No Blood Transfusions History of Blood Disorders: No Adverse Reaction to a Blood Tr: No Reviewed Nursing Assessment Reviewed/Agree w Nursing PMH: Yes Family Medical History Significant Family History: No Pertinent Family Hx Family Medial History: Cancer GPA-DAD SIDE, Onset:Unknown Cataract GMA-DAD SIDE Dementia GPA-DAD SIDE Family history: Arthritis GPA-MOM SIDE Family history: Cardiovascular disease GMA-DAD SIDE (CAD STINTS) GMA-MOM SIDE (ENLARGED HEART DEFIBALATOR AND PACER) History of - respiratory disease GPA-DAD SIDE (EMPHYSEMA, COPD) No Family History of: AIDS Abdominal aortic aneurysm Abdominal aortic aneurysm [place]'s disease [place]'s disease Alcoholism Alcoholism Alzheimer's disease Aphasia Aphasia Arthritis Asthma Cancer of colon Cancer of mouth Cardiovascular disease Cataracts Chest pain Colon cancer Completed stroke Congenital disease Congenital heart disease Congenital heart disease Congestive heart failure Coronary thrombosis Cystic fibrosis Cystic fibrosis Deafness or hearing loss Diabetes mellitus Drug abuse Dysphagia Dysphasia Family history: Allergy Family history: Alzheimer's disease Family history: Asthma Family history: Breast disease Family history: Coronary thrombosis Family history: Diabetes mellitus Family history: Gastrointestinal disease Family history: Glaucoma Family history: Hypertension Family history: Osteoporosis Family history: Thyroid disorder Fibrocystic disease of breast Gastroenteritis Glaucoma Headache Hearing loss Heart disease Hereditary disease History of - anemia History of - disorder History of drug abuse Human immunodeficiency virus (HIV) seropositivity Hypercholesterolemia Hypercholesterolemia Infertile Kidney disease Malignant neoplasm of lung Myocardial infarction Parkinson's disease Prostate cancer Psychotic disorder Seizure disorder Severe allergy Stroke Thyroid disease Tuberculosis Tuberculosis Visual disorder Visual impairment Physical Exam Vital Signs Vital Signs - First Documented 12/19/17 12:52 Temp 98.0 Pulse 91 Resp 18 B/P (MAP) 99/64 (76) Pulse Ox 96 O2 Delivery Nasal Cannula Capillary Refill : Less Than 3 Seconds General Appearance: WD/WN, no apparent distress HEENT: PERRL/EOMI, normal ENT inspection, TMs normal, pharynx normal, other Neck: non-tender (oromucosa pink and moist), full range of motion, supple, normal inspection Cardiovascular: normal peripheral pulses, regular rate, rhythm, no murmur Respiratory: chest non-tender, lungs clear, normal breath sounds Gastrointestinal: normal bowel sounds, soft, tenderness (general lysed suprapubic) Extremities: normal range of motion, non-tender, normal inspection, no pedal edema, normal capillary refill Neurologic/Psychiatric: no motor/sensory deficits, alert, normal mood/affect, oriented x 3 Skin: normal color, warm/dry Progress/Results/Core Measures Suspected Sepsis Recent Fever Within 48 Hours: No Infection Criteria Present: None New/Unexplained Altered Menta: No Sepsis Screen: No Definite Risk Sepsis Diagnosis: SIRS Temperature: Pulse: Respiratory Rate: Blood Pressure / Mean: Results/Orders Lab Results Laboratory Tests Test 12/19/17 12:47 Range/Units Urine Color YELLOW Urine Clarity SLIGHTLY CLOUDY Urine pH 6.5 5-9 Urine Specific [place] 1.010 L 1.016-1.022 Urine Protein NEGATIVE NEGATIVE Urine Glucose (UA) NEGATIVE NEGATIVE Urine Ketones 2+ H NEGATIVE Urine Nitrite NEGATIVE NEGATIVE Urine Bilirubin NEGATIVE NEGATIVE Urine Urobilinogen NORMAL NORMAL MG/DL Urine Leukocyte Esterase NEGATIVE NEGATIVE Urine RBC (Auto) NEGATIVE NEGATIVE Urine RBC NONE /HPF Urine WBC 2-5 /HPF Urine Squamous Epithelial Cells 10-20 /HPF Urine Crystals PRESENT H /LPF Urine Amorphous Sediment FEW CHAZ URATES H /LPF Urine Bacteria NEGATIVE /HPF Urine Casts NONE /LPF Urine Mucus NEGATIVE /LPF Urine Culture Indicated NO Urine Opiates Screen POSITIVE H NEGATIVE Urine Oxycodone Screen POSITIVE H NEGATIVE Urine Methadone Screen NEGATIVE NEGATIVE Urine Propoxyphene Screen NEGATIVE NEGATIVE Urine Barbiturates Screen NEGATIVE NEGATIVE Ur Tricyclic Antidepressants Screen NEGATIVE NEGATIVE Urine Phencyclidine Screen NEGATIVE NEGATIVE Urine Amphetamines Screen NEGATIVE NEGATIVE Urine Methamphetamines Screen NEGATIVE NEGATIVE Urine Benzodiazepines Screen POSITIVE H NEGATIVE Urine Cocaine Screen NEGATIVE NEGATIVE Urine Cannabinoids Screen POSITIVE H NEGATIVE My Orders Orders - KARINAMARTIN Ua Culture If Indicated (12/19/17 12:11) Urine Bedside (12/19/17 12:11) Drug Screen Stat (Urine) (12/19/17 13:09) Saline Lock/Iv-Start (12/19/17 13:55) D5 Ns 1000 Ml Iv Solution (Dextrose 5%/0 (12/19/17 13:55) Promethazine Injection (Phenergan Injec (12/19/17 13:55) Metoclopramide Injection (Reglan Injecti (12/19/17 15:31) Diphenhydramine Injection (Benadryl Inje (12/19/17 15:31) Medications Given in ED Current Medications Medications Dose Ordered Sig/Dani Route Start Time Stop Time Status Last Admin Dose Admin Dextrose/Sodium Chloride 1,000 ml @ 0 mls/hr Q0M ONCE IV 12/19/17 13:55 12/19/17 14:00 DC 12/19/17 14:27 0 MLS/HR Vital Signs/I&O Vital Sign - Last 12Hours 12/19/17 12/19/17 12:52 16:19 Temp 98.0 Pulse 91 86 Resp 18 14 B/P (MAP) 99/64 (76) 105/67 Pulse Ox 96 98 O2 Delivery Nasal Cannula Room Air Capillary Refill : Less Than 3 Seconds Point of Care Testing Urine -Bedside: Positive Progress Note : Time: 12:45 Progress Note Initial evaluation completed discussed at length with the patient the risk she is posing to her fetus with the continued use of benzodiazepines, opioids, and marijuana. She is open to evaluation at [facility] for addiction treatment. She agrees to look at the pamphlet and call Thursday for a consultation. Normal D5 normal saline 1 L IV and Phenergan 25 mg IV. Patient did have one episode of vomiting in the waiting room prior to admission to the emergency department. 1400 patient complaining of abdominal pain, requesting pain medication or IV. Discussed at length with patient that she could try Tylenol orally, she reports that she will not be up to keep it down. Offered Tylenol suppository and patient refused. Discussed at length again with the patient that any other pain medication at this point is not safe in the first trimester. Abdominal exam was normal. Patient has had no vomiting since admission to the emergency department. 1500 patient complains of continued nausea, Benadryl 25 mg IV and Reglan for nausea. Patient has demonstrated no signs of withdrawal from medications and marijuana. 1530 patient reports trace improvement in her nausea, discharge instructions reviewed with the patient at length. Return precautions discussed. Justa's of her staying free of marijuana, opioids, and benzodiazepines with stress. She is scheduled to see Dr. Talamantes for her first OB appointment on December 24. Departure Impression Impression: Primary Impression: Cannabis hyperemesis syndrome concurrent with and due to cannabis abuse Additional Impressions: Opioid abuse First trimester Noncompliance Disposition: HOME, SELF-CARE Condition: Stable Departure-Patient Inst. Decision time for Depature: 15:30 Referrals: SELF,IGNACIO REDMAN (PCP/Family) Primary Care Physician Patient Instructions: Nausea and Vomiting of (DC) Add. Discharge Instructions: Take [id number] Benadryl 25 mg every 8 hours and Zantac 150 mg twice daily or nausea and vomiting. You may take Tylenol 650 mg every 6 hours as needed for pain. Clear liquids or bland diet as tolerated. Sips of roseline kathryn or Sprite or encouraged. You need to follow up with your PROFESSOR OF MARKETING, stop using opioids, tobacco, and cannabis while ; these medications will cause harm to your baby and are responsible for your continued nausea and vomiting. Consider addiction treatment services available at [facility], so brochure and call on Thursday. Return to emergency department for nausea and vomiting not controlled with medication as directed, fever greater than 101, vaginal discharge or bleeding, or new problems. All discharge instructions reviewed with patient and/or family. Voiced understanding. Copy Copies To 1: CASSY TALAMANTES AMY ARNP Dec 19, 2017 13:07
[2017-12-19 13:25] LABS: AMORPHOUS SEDIMENT,UR FEW AMOR URATES /LPF; BACTERIA,URINE NEGATIVE /HPF
[2017-12-19 13:36] LABS: AMPHETAMINE SCREEN, URINE NEGATIVE (NEGATIVE); BARBITURATE SCREEN URINE NEGATIVE (NEGATIVE); BENZODIAZEPINES SCREEN URINE POSITIVE (NEGATIVE); CANNABINOID SCREEN, URINE POSITIVE (NEGATIVE); COCAINE SCREEN URINE NEGATIVE (NEGATIVE); METHADONE STAT NEGATIVE (NEGATIVE); METHAMPHETAMINE SCREEN URINE S NEGATIVE (NEGATIVE); OPIATE SCREEN URINE POSITIVE (NEGATIVE); OXYCODONE STAT POSITIVE (NEGATIVE); PROPOXYPHENE STAT NEGATIVE (NEGATIVE); TRICYCLIC ANTIDEPRESSANTS SCRE NEGATIVE (NEGATIVE)
[2017-12-19] MEDS ORDERED: D5 NS 1000 ML IV SOLUTION 1,000 ML IV ONE (13:55)
[2017-12-19] MEDS ORDERED: PROMETHAZINE INJ 25 MG/ML (PHENERGAN) AMP IVP STA (13:55)
[2017-12-19] MEDS ORDERED: METOCLOPRAMIDE INJ 10 MG/2 ML (REGLAN) IVP STA (15:31)
[2017-12-19] MEDS ORDERED: diphenhydrAMINE 50 MG/ML INJ (BENADRYL) IV STA (15:31)
[2017-12-19 16:19] VITALS: BP 105/67
[2017-12-21] MEDS ORDERED: CLIN300C11 PO (11:21)
== END 2017-12-19 16:21 | disposition home or self-care (01) ==
LOC: EDUNIT# 10:49 → ER 10:51
DX: O99.321 Drug use complicating pregnancy, first trimester (principal); F12.188 Cannabis abuse with other cannabis-induced disorder; F11.10 Opioid abuse, uncomplicated; F12.90 Cannabis use, unspecified, uncomplicated; O21.9 Vomiting of pregnancy, unspecified; O99.341 Other mental disorders complicating pregnancy, first trimester; F41.9 Anxiety disorder, unspecified; F32.9 Major depressive disorder, single episode, unspecified; O99.511 Diseases of the respiratory system complicating pregnancy, first trimester; J45.909 Unspecified asthma, uncomplicated; Z87.42 Personal history of other diseases of the female genital tract; Z87.01 Personal history of pneumonia (recurrent); Z90.49 Acquired absence of other specified parts of digestive tract; Z77.22 Contact with and (suspected) exposure to environmental tobacco smoke (acute) (chronic); Z3A.01 Less than 8 weeks gestation of pregnancy
CPT/HCPCS: 80306; 81000; 84703

== ENCOUNTER 2017-12-21 14:06 | Emergency (ER) | payer MEDICAID ==
[~2017-12-21] VITALS: Ht 154.9 cm; Wt 45.4 kg
[~2017-12-21 14:06] MED LIST changes: +CLIN300C11 PO
[2017-12-21] MEDS ORDERED: NS IV 1000 ML 1,000 ML IV ONE ×2 (15:07→17:05)
[2017-12-21] MEDS ORDERED: ONDANSETRON 4 MG/2 ML (SDV) Z0FRAN IVP ONE ×2 (15:15→17:15)
[2017-12-21 15:43] LABS: BASOPHILS % (AUTO) 0 % (0-10); EOSINOPHILS # (AUTO) 0.1 10^3/uL (0.0-0.3); EOSINOPHILS % (AUTO) 1 % (0-10); HEMATOCRIT 36 % (35-52); HEMOGLOBIN 13.5 G/DL (11.5-16.0); LYMPHOCYTES # (AUTO) 1.5 X 10^3 (1.0-4.0); LYMPHOCYTES % (AUTO) 20 % (12-44); MEAN CORPUSCULAR HEMOGLOBIN 33 PG (25-34); MEAN CORPUSCULAR HGB CONC 38 G/DL (32-36); MEAN CORPUSCULAR VOLUME 86 FL (80-99); MEAN PLATELET VOLUME 9.1 FL (7.4-10.4); MONOCYTES # (AUTO) 0.6 X 10^3 (0.0-1.0); MONOCYTES % (AUTO) 8 % (0-12); NEUTROPHILS # (AUTO) 5.4 X 10^3 (1.8-7.8); NEUTROPHILS % (AUTO) 70 % (42-75); PLATELET COUNT 348 10^3/uL (130-400); RED BLOOD COUNT 4.16 10^6/uL (4.35-5.85); RED CELL DISTRIBUTION WIDTH 12.5 % (10.0-14.5); WHITE BLOOD COUNT 7.7 10^3/uL (4.3-11.0)
[2017-12-21 16:05] LABS: ALANINE AMINOTRANSFERASE 15 U/L (0-55); ALBUMIN 3.9 GM/DL (3.2-4.5); ALKALINE PHOSPHATASE 54 U/L (40-136); BILIRUBIN,TOTAL 0.9 MG/DL (0.1-1.0); BUN/CREATININE RATIO 12; CALCIUM 8.7 MG/DL (8.5-10.1); CARBON DIOXIDE 24 MMOL/L (21-32); CHLORIDE 101 MMOL/L (98-107); CREATININE SERUM 0.49 MG/DL (0.60-1.30); GFR ESTIMATED > 60; GLUCOSE 99 MG/DL (70-105); LIPASE 7 U/L (8-78); POTASSIUM 2.6 MMOL/L (3.6-5.0); SODIUM 133 MMOL/L (135-145); TOTAL PROTEIN 5.8 GM/DL (6.4-8.2)
--- NOTE | 2017-12-21 16:29 | ED GU-Female ---
General Chief Complaint: Abdominal/GI Problems Stated Complaint: VOMITING Nursing Triage Note: c/o continued vomiting. Pt is 6 weeks and has a history of induced emesis. Nursing Sepsis Screen: No Definite Risk Source: patient Exam Limitations: no limitations History of Present Illness Date Seen by Provider: Dec 21, 2017 Time Seen by Provider: 14:50 Initial Comments 22-year-old female patient presents to the emergency Department with reports of continued nausea and vomiting. Patient is 6 weeks . Patient was seen in the emergency department on November 30 and (seen by this examiner on the ). Also seen in the ED on December 15, , (left AMA), and . Patient is known to this examiner for multiple previous visits for cannabis hyperemesis. PCP is Dr. Estes at [facility] [place]. Patient states she has been trying to stop using the narcotics, Ativan, and marijuana. States she has not used marijuana, benzos, or phenol for 2 days. States she is continuing to use the Percocet. Patient is scheduled with Dr. Talamantes's nurse for her intake visit. Insurance would not cover the day clean just and patient could not afford this medication. She only took 2 doses of the Flagyl for the bacterial vaginosis. Has not yet picked up the clindamycin that was called in today to replace the metronidazole. Allergies and Home Medications Allergies Coded Allergies: No Known Drug Allergies (Unverified , 01/12/16) Home Medications Clindamycin HCl 300 Mg Capsule, 300 MG PO BID, (Reported) Doxylamine/Pyridoxine HCl 1 Each Tablet., 2 EACH PO HS Prescribed by: ZOHREH HAYWARD on 12/15/172010 Famotidine 20 Mg Tablet, 20 MG PO BID Prescribed by: ORLANDO QUACH on 12/21/171749 Metoclopramide HCl 10 Mg Tablet, 10 MG PO Q6H PRN for NAUSEA/VOMITING-1ST LINE Prescribed by: ORLANDO QUACH on 12/21/171749 Metronidazole 500 Mg Tablet, 500 MG PO BID Prescribed by: ERIKA LEWIS on 12/16/17 143 Potassium Chloride 10 Meq Capsule.er, 10 MEQ PO DAILY Prescribed by: ORLANDO QUACH on 12/21/17 175 Past Csymngq-Nkmkwp-Gxoivx Hx Patient Social History Alcohol Use: Denies Use Recreational Drug Use: No Drug of Choice: THC, FENTANYL, OXYCODONE Type Used: Cigarettes 2nd Hand Smoke Exposure: Yes Recent Foreign Travel: No Contact w/Someone Who Travel: No Recent Infectious Disease Expo: No Recent Hopitalizations: No Immunizations Up To Date Tetanus Booster (TDap): Less than 5yrs PED Vaccines UTD: Yes Date of Pneumonia Vaccine: Nov 12, 2013 Date of Influenza Vaccine: Sep 11, 2015 Seasonal Allergies Seasonal Allergies: No Surgeries History of Surgeries: Yes (LAPAROSCOPY-OVARIAN CYST, ENDOMETRIOSIS; EGD) Surgeries: Abdominal, Appendectomy, Gallbladder Respiratory History of Respiratory Disorde: Yes Respiratory Disorders: Asthma, Pneumonia Currently Using CPAP: No Currently Using BIPAP: No Cardiovascular History of Cardiac Disorders: No Neurological History of Neurological Disord: No Reproductive System Hx Reproductive Disorders: Yes (LT OVARIAN CYST) Sexually Transmitted Disease: No HIV/AIDS: No Female 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, Ovarian Cyst Genitourinary History of Genitourinary Disor: No Gastrointestinal History of Gastrointestinal Di: Yes (CHRONIC ABDOMINAL PAIN, CHRONIC N/V, CANNABIS HYPEREMESIS SYNDROME) Musculoskeletal History of Musculoskeletal Dis: No Endocrine History of Endocrine Disorders: No HEENT History of HEENT Disorders: No Cancer History of Cancer: No Psychosocial History of Psychiatric Problem: Yes ("CYCLIC VOMITING", marijuana abuse) Behavioral Health Disorders: Sleep Difficulties, Anxiety, Depression Integumentary History of Skin or Integumenta: No Blood Transfusions History of Blood Disorders: No Adverse Reaction to a Blood Tr: No Family Medical History Significant Family History: No Pertinent Family Hx Family Medial History: Cancer GPA-DAD SIDE, Onset:Unknown Cataract GMA-DAD SIDE Dementia GPA-DAD SIDE Family history: Arthritis GPA-MOM SIDE Family history: Cardiovascular disease GMA-DAD SIDE (CAD STINTS) GMA-MOM SIDE (ENLARGED HEART DEFIBALATOR AND PACER) History of - respiratory disease GPA-DAD SIDE (EMPHYSEMA, COPD) No Family History of: AIDS Abdominal aortic aneurysm Abdominal aortic aneurysm Aneta's disease Aneta's disease Alcoholism Alcoholism Alzheimer's disease Aphasia Aphasia Arthritis Asthma Cancer of colon Cancer of mouth Cardiovascular disease Cataracts Chest pain Colon cancer Completed stroke Congenital disease Congenital heart disease Congenital heart disease Congestive heart failure Coronary thrombosis Cystic fibrosis Cystic fibrosis Deafness or hearing loss Diabetes mellitus Drug abuse Dysphagia Dysphasia Family history: Allergy Family history: Alzheimer's disease Family history: Asthma Family history: Breast disease Family history: Coronary thrombosis Family history: Diabetes mellitus Family history: Gastrointestinal disease Family history: Glaucoma Family history: Hypertension Family history: Osteoporosis Family history: Thyroid disorder Fibrocystic disease of breast Gastroenteritis Glaucoma Headache Hearing loss Heart disease Hereditary disease History of - anemia History of - disorder History of drug abuse Human immunodeficiency virus (HIV) seropositivity Hypercholesterolemia Hypercholesterolemia Infertile Kidney disease Malignant neoplasm of lung Myocardial infarction Parkinson's disease Prostate cancer Psychotic disorder Seizure disorder Severe allergy Stroke Thyroid disease Tuberculosis Tuberculosis Visual disorder Visual impairment Physical Exam Vital Signs Vital Signs - First Documented 12/21/17 14:25 Temp 98.9 Pulse 88 Resp 18 B/P (MAP) 112/75 (87) Pulse Ox 98 Capillary Refill : Less Than 3 Seconds Progress/Results/Core Measures Suspected Sepsis Recent Fever Within 48 Hours: No Infection Criteria Present: Suspected New Infection New/Unexplained Altered Menta: No Sepsis Screen: No Definite Risk Sepsis Diagnosis: SIRS Temperature:98.9 Pulse: 88 Respiratory Rate: 18 Laboratory Tests 12/21/17 15:30: White Blood Count 7.7 Blood Pressure 112 /75 Mean: 87 Laboratory Tests 12/21/17 15:30: Creatinine 0.49L, Platelet Count 348, Total Bilirubin 0.9 Results/Orders Lab Results Laboratory Tests Test 12/21/17 15:30 12/21/17 16:53 Range/Units White Blood Count 7.7 4.3-11.0 10^3/uL Red Blood Count 4.16 L 4.35-5.85 10^6/uL Hemoglobin 13.5 11.5-16.0 G/DL Hematocrit 36 35-52 % Mean Corpuscular Volume 86 80-99 FL Mean Corpuscular Hemoglobin 33 25-34 PG Mean Corpuscular Hemoglobin Concent 38 H 32-36 G/DL Red Cell Distribution Width 12.5 10.0-14.5 % Platelet Count 348 130-400 10^3/uL Mean Platelet Volume 9.1 7.4-10.4 FL Neutrophils (%) (Auto) 70 42-75 % Lymphocytes (%) (Auto) 20 12-44 % Monocytes (%) (Auto) 8 0-12 % Eosinophils (%) (Auto) 1 0-10 % Basophils (%) (Auto) 0 0-10 % Neutrophils # (Auto) 5.4 1.8-7.8 X 10^3 Lymphocytes # (Auto) 1.5 1.0-4.0 X 10^3 Monocytes # (Auto) 0.6 0.0-1.0 X 10^3 Eosinophils # (Auto) 0.1 0.0-0.3 10^3/uL Basophils # (Auto) 0.0 0.0-0.1 10^3/uL Sodium Level 133 L 135-145 MMOL/L Potassium Level 2.6 L 3.6-5.0 MMOL/L Chloride Level 101 98-107 MMOL/L Carbon Dioxide Level 24 21-32 MMOL/L Anion Gap 8 5-14 MMOL/L Blood Urea Nitrogen 6 L 7-18 MG/DL Creatinine 0.49 L 0.60-1.30 MG/DL Estimat Glomerular Filtration Rate > 60 BUN/Creatinine Ratio 12 Glucose Level 99 70-105 MG/DL Calcium Level 8.7 8.5-10.1 MG/DL Total Bilirubin 0.9 0.1-1.0 MG/DL Aspartate Amino Transf (AST/SGOT) 16 5-34 U/L Alanine Aminotransferase (ALT/SGPT) 15 0-55 U/L Alkaline Phosphatase 54 40-136 U/L Total Protein 5.8 L 6.4-8.2 GM/DL Albumin 3.9 3.2-4.5 GM/DL Lipase 7 L 8-78 U/L Human Chorionic Gonadotropin, Quant 54437 H <5 MIU/ML Urine Color YELLOW Urine Clarity CLEAR Urine pH 7 5-9 Urine Specific [place] 1.015 L 1.016-1.022 Urine Protein 2+ H NEGATIVE Urine Glucose (UA) NEGATIVE NEGATIVE Urine Ketones 4+ H NEGATIVE Urine Nitrite NEGATIVE NEGATIVE Urine Bilirubin 1+ H NEGATIVE Urine Urobilinogen 4 H NORMAL MG/DL Urine Leukocyte Esterase 1+ H NEGATIVE Urine RBC (Auto) NEGATIVE NEGATIVE Urine RBC NONE /HPF Urine WBC 2-5 /HPF Urine Squamous Epithelial Cells 10-25 H /HPF Urine Crystals NONE /LPF Urine Bacteria NEGATIVE /HPF Urine Casts NONE /LPF Urine Mucus LARGE H /LPF Urine Culture Indicated NO Urine Opiates Screen POSITIVE H NEGATIVE Urine Oxycodone Screen NEGATIVE NEGATIVE Urine Methadone Screen NEGATIVE NEGATIVE Urine Propoxyphene Screen NEGATIVE NEGATIVE Urine Barbiturates Screen NEGATIVE NEGATIVE Ur Tricyclic Antidepressants Screen NEGATIVE NEGATIVE Urine Phencyclidine Screen NEGATIVE NEGATIVE Urine Amphetamines Screen NEGATIVE NEGATIVE Urine Methamphetamines Screen NEGATIVE NEGATIVE Urine Benzodiazepines Screen POSITIVE H NEGATIVE Urine Cocaine Screen NEGATIVE NEGATIVE Urine Cannabinoids Screen POSITIVE H NEGATIVE My Orders Orders - ORLANDO QUACH Cbc With Automated Diff (12/21/17 15:07) Comprehensive Metabolic Panel (12/21/17 15:07) Drug Screen Stat (Urine) (12/21/17 15:07) Hcg,Quantitative (12/21/17 15:07) Lipase (12/21/17 15:07) Ua Culture If Indicated (12/21/17 15:07) Saline Lock/Iv-Start (12/21/17 15:07) Heart Tones (12/21/17 15:07) Ns Iv 1000 Ml (Sodium Chloride 0.9%) (12/21/17 15:07) Ondansetron Injection (Zofran Injectio (12/21/17 15:15) Ondansetron Injection (Zofran Injectio (12/21/17 17:15) Acetaminophen Tablet (Tylenol Tablet) (12/21/17 17:05) Ns Iv 1000 Ml (Sodium Chloride 0.9%) (12/21/17 17:05) Medications Given in ED Current Medications Medications Dose Ordered Sig/Dani Route Start Time Stop Time Status Last Admin Dose Admin Ondansetron HCl 4 mg ONCE ONCE IVP 12/21/17 15:15 12/21/17 15:16 DC 12/21/17 15:30 4 MG Ondansetron HCl 4 mg ONCE ONCE IVP 12/21/17 17:15 12/21/17 17:16 DC 12/21/17 17:18 4 MG Sodium Chloride 1,000 ml @ 0 mls/hr Q0M ONCE IV 12/21/17 15:07 12/21/17 15:11 DC 12/21/17 15:30 1,000 MLS/HR Sodium Chloride 1,000 ml @ 0 mls/hr Q0M ONCE IV 12/21/17 17:05 12/21/17 17:06 DC 12/21/17 17:19 0 MLS/HR Vital Signs/I&O Vital Sign - Last 12Hours 12/21/17 14:25 Temp 98.9 Pulse 88 Resp 18 B/P (MAP) 112/75 (87) Pulse Ox 98 Capillary Refill : Less Than 3 Seconds Blood Pressure Mean: 87 Departure Impression Impression: Primary Impression: Volume depletion Additional Impressions: with 6 completed weeks gestation Cannabis hyperemesis syndrome concurrent with and due to cannabis abuse Hypokalemia Disposition: 01 HOME, SELF-CARE Condition: Improved Departure-Patient Inst. Decision time for Depature: 17:53 Referrals: CASSY TALAMANTES DO SELF,IGNACIO REDMAN (PCP/Family) Primary Care Physician Patient Instructions: Nausea and Vomiting of (DC), Nutrition Before and During , Taking Ftmk-dts-Lsauqhf Medicines During Add. Discharge Instructions: All discharge instructions reviewed with patient and/or family. Voiced understanding. -Medications as instructed. -Tylenol mizg-izm-jsssxjz as directed by the cut out press operator for pain. -Drink plenty of fluids -Avoid using cigarettes/tobacco, marijuana and narcotics (these all can cause harm to you and your fetus) -follow-up with Dr. Talamantes as previously scheduled. Discuss polysubstance abuse with Dr. Talamantes and possible need for drug rehabilitation. -Consider following up with [facility] drug rehabilitation (Cassie Licea) for assistance -Return to the emergency department for worsened symptoms or any other concerns. Scripts Potassium Chloride (Potassium Chloride) 10 Meq Capsule.er 10 MEQ PO DAILY, #6 CAP 0 Refills Prov: ORLANDO QUACH 12/21/17 Famotidine (Pepcid) 20 Mg Tablet 20 MG PO BID, #30 TAB 0 Refills Prov: ORLANDO QUACH 12/21/17 Metoclopramide HCl (Reglan) 10 Mg Tablet 10 MG PO Q6H Y for NAUSEA/VOMITING-1ST LINE, #14 TAB 0 Refills Prov: ORLANDO QUACH 12/21/17 ORLANDO QUACH Dec 21, 2017 16:29
[2017-12-21 16:59] LABS: CLARITY,URINE CLEAR; COLOR,URINE YELLOW; GLUCOSE, URINE (UA) NEGATIVE (NEGATIVE); KETONES,URINE 4+ (NEGATIVE); LEUKOCYTE ESTERASE ,URINE 1+ (NEGATIVE); NITRITE,URINE NEGATIVE (NEGATIVE); PH,URINE 7 (5-9); PROTEIN,URINE 2+ (NEGATIVE); UROBILINOGEN,URINE 4 MG/DL (NORMAL)
[2017-12-21] MEDS ORDERED: ACETAMINOPHEN 500 MG TAB (TYLENOL) PO STA (17:05)
[2017-12-21 17:11] LABS: BENZODIAZEPINES SCREEN URINE POSITIVE (NEGATIVE); CANNABINOID SCREEN, URINE POSITIVE (NEGATIVE); OPIATE SCREEN URINE POSITIVE (NEGATIVE)
[2017-12-21 17:12] LABS: AMPHETAMINE SCREEN, URINE NEGATIVE (NEGATIVE); BARBITURATE SCREEN URINE NEGATIVE (NEGATIVE); COCAINE SCREEN URINE NEGATIVE (NEGATIVE); METHADONE STAT NEGATIVE (NEGATIVE); METHAMPHETAMINE SCREEN URINE S NEGATIVE (NEGATIVE); OXYCODONE STAT NEGATIVE (NEGATIVE); PROPOXYPHENE STAT NEGATIVE (NEGATIVE); TRICYCLIC ANTIDEPRESSANTS SCRE NEGATIVE (NEGATIVE)
[2017-12-21 17:20] LABS: BILIRUBIN,URINE 1+ (NEGATIVE)
[2017-12-21 17:21] LABS: BACTERIA,URINE NEGATIVE /HPF
[2017-12-21] MEDS ORDERED: FAMO-119 PO (17:50)
[2017-12-21] MEDS ORDERED: METO-310 PO (17:50)
[2017-12-21] MEDS ORDERED: POTA10CA43 PO (17:56)
[2017-12-21 18:24] VITALS: BP 115/78
== END 2017-12-21 18:24 | disposition home or self-care (01) ==
LOC: EDUNIT# 14:06 → ER 14:07
DX: O99.281 Endocrine, nutritional and metabolic diseases complicating pregnancy, first trimester (principal); E86.9 Volume depletion, unspecified; E87.6 Hypokalemia; O9A.22 Injury, poisoning and certain other consequences of external causes complicating childbirth; T40.7X5A Adverse effect of cannabis (derivatives), initial encounter; O99.321 Drug use complicating pregnancy, first trimester; F12.10 Cannabis abuse, uncomplicated; O99.511 Diseases of the respiratory system complicating pregnancy, first trimester; J45.909 Unspecified asthma, uncomplicated; O99.341 Other mental disorders complicating pregnancy, first trimester; F41.9 Anxiety disorder, unspecified; F32.9 Major depressive disorder, single episode, unspecified; Z82.49 Family history of ischemic heart disease and other diseases of the circulatory system; Z87.01 Personal history of pneumonia (recurrent); Z87.448 Personal history of other diseases of urinary system; Z90.49 Acquired absence of other specified parts of digestive tract; Z77.22 Contact with and (suspected) exposure to environmental tobacco smoke (acute) (chronic); Z3A.01 Less than 8 weeks gestation of pregnancy
CPT/HCPCS: 36415; 80053; 80306; 81000; 83690; 84702; 85025; 96361; 96374; 96376

== ENCOUNTER 2018-01-28 12:06 | Emergency (ER) | payer MEDICAID ==
[~2018-01-28] VITALS: Ht 154.9 cm; Wt 46.7 kg
[~2018-01-28 12:06] MED LIST changes: +METO-310 PO
[2018-01-28] MEDS ORDERED: LORazepam INJ 2 MG/ML (ATIVAN) VIAL IVP ONE (12:15)
[2018-01-28] MEDS ORDERED: D5 LR IV SOLUTION 1,000 ML IV SCH (12:15)
[2018-01-28] MEDS ORDERED: PROMETHAZINE INJ 25 MG/ML (PHENERGAN) AMP IVP ONE (12:15)
[2018-01-28] MEDS ORDERED: HYOSCYAMINE 0.125 MG (LEVSIN) TAB PO ONE (12:30)
[2018-01-28] MEDS ORDERED: ACETAMINOPHEN 500 MG TAB (TYLENOL) PO ONE (12:30)
[2018-01-28] MEDS ORDERED: NS IV 1000 ML 1,000 ML IV SCH (12:30)
--- NOTE | 2018-01-28 12:34 | ED Abdominal Pain ---
General Stated Complaint: ABD PAIN Source of Information: Patient Exam Limitations: No Limitations History of Present Illness Date Seen by Provider: Jan 28, 2018 Time Seen by Provider: 12:32 Initial Comments tto ER with reports of periumbilical abdominal pain. this pain has been going on worse than usual for about 3 days but states that she's had this pain off and on since the age of 7. She denies any vomiting this time. She is about 10- 12 weeks . 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 No fevers or chills. No vaginal bleeding. she denies any illicit drug use. She states that her primary care provider Dr. Badillo has taken her off of the fentanyl patches and she has not used any marijuana and 1.5 months Severity/Quality: Moderate Location: Periumbilical Radiation: No Radiation Allergies and Home Medications Allergies Coded Allergies: No Known Drug Allergies (Unverified , 01/12/16) Home Medications Cephalexin 500 Mg Capsule, 500 MG PO TID Prescribed by: ERIKA LEWIS on 01/28/18 1331 Famotidine 20 Mg Tablet, 20 MG PO BID Prescribed by: ORLANDO QUACH on 12/21/17 1750 Metoclopramide HCl 10 Mg Tablet, 10 MG PO Q6H PRN for NAUSEA/VOMITING-1ST LINE Prescribed by: ORLANDO QUACH on 12/21/17 1750 Metronidazole 500 Mg Tablet, 500 MG PO BID Prescribed by: ERIKA LEWIS on 12/16/17 1438 Potassium Chloride 10 Meq Capsule.er, 10 MEQ PO DAILY Prescribed by: ORLANDO QUACH on 12/21/17 1756 Patient Home Medication List Home Medication List Reviewed: Yes Review of Systems Constitutional: see HPI EENTM: No Symptoms Reported Respiratory: No Symptoms Reported Cardiovascular: No Symptoms Reported Gastrointestinal: See HPI, Abdominal Pain Genitourinary: No Symptoms Reported Musculoskeletal: no symptoms reported Skin: no symptoms reported Psychiatric/Neurological: No Symptoms Reported Past [id number]-[id number]-[id number] Hx Patient Social History Drug of Choice: THC, FENTANYL, OXYCODONE Type Used: Cigarettes 2nd Hand Smoke Exposure: Yes Recent Foreign Travel: No Contact w/Someone Who Travel: No Recent Hopitalizations: No Immunizations Up To Date Tetanus Booster (TDap): Less than 5yrs PED Vaccines UTD: Yes Date of Pneumonia Vaccine: Nov 12, 2013 Date of Influenza Vaccine: Sep 11, 2015 Seasonal Allergies Seasonal Allergies: No Past Medical History Surgeries: Yes (LAPAROSCOPY-OVARIAN CYST, ENDOMETRIOSIS; EGD) Abdominal, Appendectomy, Gallbladder Respiratory: Yes Asthma, Pneumonia Currently Using CPAP: No Currently Using BIPAP: No Cardiac: No Neurological: No Reproductive Disorders: Yes (LT OVARIAN CYST) Female 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, Ovarian Cyst Sexually Transmitted Disease: No HIV/AIDS: No Genitourinary: No Gastrointestinal: Yes (CHRONIC ABDOMINAL PAIN, CHRONIC N/V, CANNABIS HYPEREMESIS SYNDROME) Musculoskeletal: No Endocrine: No HEENT: No Cancer: No Psychosocial: Yes ("CYCLIC VOMITING", marijuana abuse) Sleep Difficulties, Anxiety, Depression Integumentary: No Blood Disorders: No Adverse Reaction/Blood Tranf: No Family Medical History Cancer GPA-DAD SIDE, Onset:Unknown Cataract GMA-DAD SIDE Dementia GPA-DAD SIDE Family history: Arthritis GPA-MOM SIDE Family history: Cardiovascular disease GMA-DAD SIDE (CAD STINTS) GMA-MOM SIDE (ENLARGED HEART DEFIBALATOR AND PACER) History of - respiratory disease GPA-DAD SIDE (EMPHYSEMA, COPD) No Family History of: AIDS Abdominal aortic aneurysm Abdominal aortic aneurysm Wirt's disease Fidel's disease Alcoholism Alcoholism Alzheimer's disease Aphasia Aphasia Arthritis Asthma Cancer of colon Cancer of mouth Cardiovascular disease Cataracts Chest pain Colon cancer Completed stroke Congenital disease Congenital heart disease Congenital heart disease Congestive heart failure Coronary thrombosis Cystic fibrosis Cystic fibrosis Deafness or hearing loss Diabetes mellitus Drug abuse Dysphagia Dysphasia Family history: Allergy Family history: Alzheimer's disease Family history: Asthma Family history: Breast disease Family history: Coronary thrombosis Family history: Diabetes mellitus Family history: Gastrointestinal disease Family history: Glaucoma Family history: Hypertension Family history: Osteoporosis Family history: Thyroid disorder Fibrocystic disease of breast Gastroenteritis Glaucoma Headache Hearing loss Heart disease Hereditary disease History of - anemia History of - disorder History of drug abuse Human immunodeficiency virus (HIV) seropositivity Hypercholesterolemia Hypercholesterolemia Infertile Kidney disease Malignant neoplasm of lung Myocardial infarction Parkinson's disease Prostate cancer Psychotic disorder Seizure disorder Severe allergy Stroke Thyroid disease Tuberculosis Tuberculosis Visual disorder Visual impairment No Pertinent Family Hx Physical Exam Vital Signs Vital Signs - First Documented 01/28/18 12:25 Temp 96.2 Pulse 98 Resp 18 B/P (MAP) 111/90 (97) Pulse Ox 98 Capillary Refill : General Appearance: WD/WN, no apparent distress, thin HEENT: PERRL/EOMI, normal ENT inspection Neck: non-tender, full range of motion Respiratory: no respiratory distress, no accessory muscle use Cardiovascular: regular rate, rhythm, no murmur Gastrointestinal: normal bowel sounds, soft; No abnormal bowel sounds, No distended, No guarding; tenderness Extremities: normal range of motion, non-tender Neurologic/Psychiatric: alert, normal mood/affect, oriented x 3 Skin: normal color, warm/dry Progress/Results/Core Measures Lab Results Laboratory Tests Test 01/28/18 12:41 01/28/18 13:06 Range/Units White Blood Count 10.5 4.3-11.0 10^3/uL Red Blood Count 4.28 L 4.35-5.85 10^6/uL Hemoglobin 13.7 11.5-16.0 G/DL Hematocrit 38 35-52 % Mean Corpuscular Volume 88 80-99 FL Mean Corpuscular Hemoglobin 32 25-34 PG Mean Corpuscular Hemoglobin Concent 36 32-36 G/DL Red Cell Distribution Width 12.7 10.0-14.5 % Platelet Count 372 130-400 10^3/uL Mean Platelet Volume 9.0 7.4-10.4 FL Neutrophils (%) (Auto) 80 H 42-75 % Lymphocytes (%) (Auto) 16 12-44 % Monocytes (%) (Auto) 4 0-12 % Eosinophils (%) (Auto) 0 0-10 % Basophils (%) (Auto) 0 0-10 % Neutrophils # (Auto) 8.4 H 1.8-7.8 X 10^3 Lymphocytes # (Auto) 1.7 1.0-4.0 X 10^3 Monocytes # (Auto) 0.4 0.0-1.0 X 10^3 Eosinophils # (Auto) 0.0 0.0-0.3 10^3/uL Basophils # (Auto) 0.0 0.0-0.1 10^3/uL Sodium Level 136 135-145 MMOL/L Potassium Level 3.6 3.6-5.0 MMOL/L Chloride Level 108 H 98-107 MMOL/L Carbon Dioxide Level 21 21-32 MMOL/L Anion Gap 7 5-14 MMOL/L Blood Urea Nitrogen 7 7-18 MG/DL Creatinine 0.50 L 0.60-1.30 MG/DL Estimat Glomerular Filtration Rate > 60 BUN/Creatinine Ratio 14 Glucose Level 96 70-105 MG/DL Calcium Level 8.9 8.5-10.1 MG/DL Total Bilirubin 0.7 0.1-1.0 MG/DL Aspartate Amino Transf (AST/SGOT) 14 5-34 U/L Alanine Aminotransferase (ALT/SGPT) 32 0-55 U/L Alkaline Phosphatase 47 40-136 U/L Total Protein 6.3 L 6.4-8.2 GM/DL Albumin 3.8 3.2-4.5 GM/DL Lipase 7 L 8-78 U/L Urine Color YELLOW Urine Clarity CLEAR Urine pH 7 5-9 Urine Specific [place] 1.015 L 1.016-1.022 Urine Protein 1+ H NEGATIVE Urine Glucose (UA) NEGATIVE NEGATIVE Urine Ketones 1+ H NEGATIVE Urine Nitrite NEGATIVE NEGATIVE Urine Bilirubin NEGATIVE NEGATIVE Urine Urobilinogen 1 NORMAL MG/DL Urine Leukocyte Esterase 1+ H NEGATIVE Urine RBC (Auto) NEGATIVE NEGATIVE Urine RBC NONE /HPF Urine WBC 2-5 /HPF Urine Squamous Epithelial Cells 10-25 H /HPF Urine Crystals NONE /LPF Urine Amorphous Sediment MOD CHAZ URATES H /LPF Urine Bacteria FEW H /HPF Urine Casts NONE /LPF Urine Mucus NEGATIVE /LPF Urine Culture Indicated YES Urine Opiates Screen NEGATIVE NEGATIVE Urine Oxycodone Screen NEGATIVE NEGATIVE Urine Methadone Screen NEGATIVE NEGATIVE Urine Propoxyphene Screen NEGATIVE NEGATIVE Urine Barbiturates Screen NEGATIVE NEGATIVE Ur Tricyclic Antidepressants Screen NEGATIVE NEGATIVE Urine Phencyclidine Screen NEGATIVE NEGATIVE Urine Amphetamines Screen NEGATIVE NEGATIVE Urine Methamphetamines Screen NEGATIVE NEGATIVE Urine Benzodiazepines Screen NEGATIVE NEGATIVE Urine Cocaine Screen NEGATIVE NEGATIVE Urine Cannabinoids Screen POSITIVE H NEGATIVE My Orders Orders - ERIKA LEWIS APRN Cbc With Automated Diff (01/28/18 12:11) Comprehensive Metabolic Panel (01/28/18 12:11) Ua Culture If Indicated (01/28/18 12:11) Saline Lock/Iv-Start (01/28/18 12:11) Lipase (01/28/18 12:11) Promethazine Injection (Phenergan Injec (01/28/18 12:15) Lorazepam Injection (Ativan Injection) (01/28/18 12:15) D5 Lr Iv Solution (Dextrose 5%/Lactated (01/28/18 12:15) Drug Screen Stat (Urine) (01/28/18 12:23) Drug Screen Urine Cl(Send Out) (01/28/18 12:23) Ns Iv 1000 Ml (Sodium Chloride 0.9%) (01/28/18 12:30) Acetaminophen Tablet (Tylenol Tablet) (01/28/18 12:30) Hyoscyamine Sl Tablet (Levsin Sl Tablet) (01/28/18 12:30) Us Ob Single Fetus<14 [id number] (01/28/18 12:34) Urine Culture (01/28/18 13:06) Medications Given in ED Current Medications Medications Dose Ordered Sig/Dani Route Start Time Stop Time Status Last Admin Dose Admin Acetaminophen 1,000 mg ONCE ONCE PO 01/28/18 12:30 01/28/18 12:32 DC 01/28/18 12:54 1,000 MG Hyoscyamine Sulfate 0.25 mg ONCE ONCE PO 01/28/18 12:30 01/28/18 12:32 DC 01/28/18 12:54 0.25 MG Vital Signs/I&O 01/28/18 01/28/18 12:25 13:35 Temp 96.2 Pulse 98 92 Resp 18 18 B/P (MAP) 111/90 (97) 112/70 Pulse Ox 98 97 Departure Impression Primary Impression: Generalized abdominal pain Additional Impression: Bacteriuria during Disposition: 01 HOME, SELF-CARE Condition: Stable Departure-Patient Inst. Decision time for Depature: 13:24 Referrals: SELFIGNACIO MD (PCP/Family) Primary Care Physician Patient Instructions: No Instuctions Given Add. Discharge Instructions: 1. Clear liquids 2. Tylenol as needed for pain control, Benadryl may also be of some help. 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 Scripts Cephalexin (Keflex) 500 Mg Capsule 500 MG PO TID, #9 CAP Prov: ERIKA LEWIS SIZER HAND 01/28/18 ERIKA LEWIS SIZER HAND Jan 28, 2018 12:34
[2018-01-28 12:47] LABS: BASOPHILS % (AUTO) 0 % (0-10); EOSINOPHILS % (AUTO) 0 % (0-10); HEMATOCRIT 38 % (35-52); HEMOGLOBIN 13.7 G/DL (11.5-16.0); LYMPHOCYTES # (AUTO) 1.7 X 10^3 (1.0-4.0); LYMPHOCYTES % (AUTO) 16 % (12-44); MEAN CORPUSCULAR HEMOGLOBIN 32 PG (25-34); MEAN CORPUSCULAR HGB CONC 36 G/DL (32-36); MEAN CORPUSCULAR VOLUME 88 FL (80-99); MONOCYTES # (AUTO) 0.4 X 10^3 (0.0-1.0); MONOCYTES % (AUTO) 4 % (0-12); NEUTROPHILS # (AUTO) 8.4 X 10^3 (1.8-7.8); NEUTROPHILS % (AUTO) 80 % (42-75); PLATELET COUNT 372 10^3/uL (130-400); RED BLOOD COUNT 4.28 10^6/uL (4.35-5.85); RED CELL DISTRIBUTION WIDTH 12.7 % (10.0-14.5); WHITE BLOOD COUNT 10.5 10^3/uL (4.3-11.0)
[2018-01-28 13:11] LABS: ALANINE AMINOTRANSFERASE 32 U/L (0-55); ALBUMIN 3.8 GM/DL (3.2-4.5); ALKALINE PHOSPHATASE 47 U/L (40-136); BILIRUBIN,TOTAL 0.7 MG/DL (0.1-1.0); BUN/CREATININE RATIO 14; CALCIUM 8.9 MG/DL (8.5-10.1); CARBON DIOXIDE 21 MMOL/L (21-32); CHLORIDE 108 MMOL/L (98-107); GFR ESTIMATED > 60; GLUCOSE 96 MG/DL (70-105); LIPASE 7 U/L (8-78); POTASSIUM 3.6 MMOL/L (3.6-5.0); SODIUM 136 MMOL/L (135-145); TOTAL PROTEIN 6.3 GM/DL (6.4-8.2)
[2018-01-28 13:12] LABS: BILIRUBIN,URINE NEGATIVE (NEGATIVE); CLARITY,URINE CLEAR; COLOR,URINE YELLOW; GLUCOSE, URINE (UA) NEGATIVE (NEGATIVE); KETONES,URINE 1+ (NEGATIVE); LEUKOCYTE ESTERASE ,URINE 1+ (NEGATIVE); NITRITE,URINE NEGATIVE (NEGATIVE); PH,URINE 7 (5-9); PROTEIN,URINE 1+ (NEGATIVE); UROBILINOGEN,URINE 1 MG/DL (NORMAL)
[2018-01-28 13:28] LABS: AMORPHOUS SEDIMENT,UR MOD AMOR URATES /LPF; BACTERIA,URINE FEW /HPF
[2018-01-28 13:29] LABS: AMPHETAMINE SCREEN, URINE NEGATIVE (NEGATIVE); BARBITURATE SCREEN URINE NEGATIVE (NEGATIVE); BENZODIAZEPINES SCREEN URINE NEGATIVE (NEGATIVE); CANNABINOID SCREEN, URINE POSITIVE (NEGATIVE); COCAINE SCREEN URINE NEGATIVE (NEGATIVE); METHADONE STAT NEGATIVE (NEGATIVE); METHAMPHETAMINE SCREEN URINE S NEGATIVE (NEGATIVE); OPIATE SCREEN URINE NEGATIVE (NEGATIVE); OXYCODONE STAT NEGATIVE (NEGATIVE); PROPOXYPHENE STAT NEGATIVE (NEGATIVE); TRICYCLIC ANTIDEPRESSANTS SCRE NEGATIVE (NEGATIVE)
[2018-01-28] MEDS ORDERED: CEPH-507 PO (13:31)
[2018-01-28 13:35] VITALS: BP 112/70
--- NOTE | 2018-01-28 13:43 | Diagnostic Imaging Report ---
PROCEDURE: US OB SINGLE FETUS <14 WKS. TECHNIQUE: Multiple real-time grayscale images were obtained over the gravid uterus in various projections. INDICATION: Lower abdominal pain. There is a single live fetus in variable presentation. The placenta is anterior. The amniotic fluid volume appears normal. heart rate was recorded at 181 beats per minute. No gestational sac hemorrhage is detected. Ovaries were not visualized due to bowel gas. No mass or free fluid is seen. IMPRESSION: Single live IUP approximately 12 weeks 4 days gestational age. Estimated date of confinement sonographically is 08/08/2018. No complicating features are seen. Dictated by: Dictated on workstation # [id number]
[2018-01-28 21:53] LABS: AMPHETAMINES URINE QUAL DS Negative; BARBITURATES URINE QUAL DS Negative; BENZODIAZEPINE URINE QUAL DS Negative
[2018-02-02] MEDS ORDERED: CLIN300C11 PO (08:30)
== END 2018-01-28 13:40 | disposition home or self-care (01) ==
LOC: EDUNIT# 12:06 → ER 12:08
DX: O99.89 Other specified diseases and conditions complicating pregnancy, childbirth and the puerperium (principal); R82.71 Bacteriuria; O99.511 Diseases of the respiratory system complicating pregnancy, first trimester; J45.909 Unspecified asthma, uncomplicated; O99.341 Other mental disorders complicating pregnancy, first trimester; F41.9 Anxiety disorder, unspecified; F32.9 Major depressive disorder, single episode, unspecified; Z87.01 Personal history of pneumonia (recurrent); Z87.448 Personal history of other diseases of urinary system; Z3A.12 12 weeks gestation of pregnancy; Z82.49 Family history of ischemic heart disease and other diseases of the circulatory system; Z77.22 Contact with and (suspected) exposure to environmental tobacco smoke (acute) (chronic); Z90.49 Acquired absence of other specified parts of digestive tract
CPT/HCPCS: 36415; 76801; 80053; 80306; 80307; 81000; 83690; 85025; 87088; 96360

== ENCOUNTER 2018-02-05 15:56 | Emergency (ER) | payer MEDICAID ==
[~2018-02-05] VITALS: Ht 154.9 cm; Wt 44.5 kg
--- OUTSIDE RECORDS SUMMARY | 2018-02-05 16:01 | XMS REPORT | Continuity of Care Document ---
Author Author [employer] Organization [place] Address Unknown Phone Unavailable Care Team Providers Care Signalman Name Role Phone [employer] Unavailable Unavailable Problems Problem Status Onset Date Classification Date Reported Comments Source Anxiety (finding) Active Problem 03/26/2014 [facility] Depression - motion (qualifier value) Active Problem [facility] Medications Medication Details Route Status Patient Instructions Ordering Provider Order Date Source amitriptyline 25 mg oral tablet 25 mg=1 tablet, PO, HS (bedtime), # 30 tablet, Refill(s) 3, Pharmacy: [facility] [address] Coenzyme Q10 100 mg oral capsule 100 mg=1 capsule, PO , BID, # 60 capsule, Refill(s) 3, Pharmacy: [address] Carafate 1 g/10 mL oral suspension 1 gm=10 mL, PO, q6hr, # 300 mL, Refill(s) 0, Pharmacy: [address] omeprazole 20 mg oral delayed release capsule 20 mg=1 capsule, PO, BID, # 60 capsule, Refill(s) 0, Pharmacy: [address] Phenergan 25 mg oral tablet 25 mg=1 tablet, PO, q4hr, PRN Nausea/Vomiting, # 30 tablet, Refill(s) 0, Pharmacy: [address] Tylenol Extra Strength 500 mg oral tablet 500 mg=1 tablet, PO, q4hr, PRN Pain, Mild, Moderate and Severe, Refill(s) 0 [facility] [email or web address] 12/26/13 17:18:00 CDT, [id number], Routine , 25 mcg=0.5 mL, IV Push, 1 time only, PRN Pain, SevereAdminister by slow IV push over 3-5 minutes. This medication requires an independent double check by a licensed provider. Inactive [facility] Allergies, Adverse Reactions, Alerts Immunizations Results Order Name Results Value Reference Range Date Interpretation Comments Source AA Qnt Phosphoserine 2 mcmol/ L 1 - 30 12/30/2013 [facility] AA Qnt Taurine 58 mcmol/L 10 - 170 12/30/2013 [facility] AA Qnt Phosphoethanolamine 0 mcmol/L 0 - 69 12/30/2013 [facility] AA Qnt Aspartic Acid 28 mcmol /L 6 - 47 12/30/2013 [facility] AA Qnt Hydroxy Proline 11 mcmol/L 0 - 45 12/30/2013 [facility] AA Qnt Threonine 85 mcmol/L 35 - 226 12/30/2013 [facility] AA Qnt Serine 128 mcmol/L 69 - 187 12/30/2013 [facility] AA Qnt Asparagine 34 mcmol/L 23 - 112 12/30/2013 [facility] AA Qnt Glutamic Acid 58 mcmol /L 5 - 150 12/30/2013 [facility] AA Qnt Glutamine 392 mcmol/L 254 - 823 12/30/2013 [facility] AA Qnt Sarcosine 0 mcmol/L 0 - 9 12/30/2013 [facility] AA Qnt Proline 125 mcmol/L 59 - 369 12/30/2013 [facility] AA Qnt Glycine 285 mcmol/L 127 - 341 12/30/2013 This test was developed and its performance characteristics determined by [facility]. It has not been cleared or approved by the U. S. Food and Drug Administration. The test does not require FDA approval. Additional information regarding test use will be provided upon request. [facility] AA Qnt Alanine 267 mcmol/L 152 - 547 12/30/2013 NA This test was developed and its performance characteristics determined by [facility]. It has not been cleared or approved by the . S. Food and Drug Administration. The test does not require FDA approval. Additional information regarding test use will be provided upon request. [facility] AA Qnt Citrulline 10 mcmol/L 1 - 46 12/30/2013 [facility] AA Qnt Alpha Amino Butyric Acid 22 mcmol/L 4 - 31 2013 [facility] AA Qnt Valine 146 mcmol/L 74 - 321 12/30/2013 [facility] AA Qnt Cystine 27 mcmol/L 5 - 45 12/30/2013 [facility] AA Qnt Methionine 23 mcmol/L 7 - 47 12/30/2013 [facility] AA Qnt Cystathionine 0 mcmol/ L 0 - 3 12/30/2013 [facility] AA Qnt Isoleucine 36 mcmol/L 22 - 107 12/30/2013 [facility] AA Qnt Leucine 81 mcmol/L 49 - 216 12/30/2013 [facility] AA Qnt Tyrosine 52 mcmol/L 24 - 115 12/30/2013 [facility] AA Qnt Phenylalanine 59 mcmol /L 26 - 91 12/30/2013 This test was developed and its performance characteristics determined by [facility]. It has not been cleared or approved by the [place]. S. Food and Drug Administration. The test does not require FDA approval. Additional information regarding test use will be provided upon request. [facility] AA Qnt B-Alanine 0 mcmol/L 0 - 7 12/30/2013 [facility] AA Qnt Homocystine 0 mcmol/L 0 - 0 12/30/2013 [facility] AA Qnt Ornithine 55 mcmol/L 10 - 163 12/30/2013 [facility] AA Qnt Lysine 122 mcmol/L 48 - 284 12/30/2013 [facility] AA Qnt Histidine 50 mcmol/L 41 - 125 12/30/2013 [facility] AA Qnt Arginine 52 mcmol/L 10 - 140 12/30/2013 [facility] AA Qnt Amino Acid Interp Normal plasma amino acids profile. 12/30/2013 [facility] AA Qnt Amino Acid Qnt Method Comment This test was developed and its performance characteristics determined 12/30/2013 [facility] Creat UTx Creatinine Ur 78.8 mg/dL 12/30/2013 [facility] Org AcidU Organic Acids Ur Increased acetoacetic and 3-hydroxybutyric acids indicate ketosis. No other significant organic acid abnormalities seen. 12/30/2013 NA SIGNED BY: Kathy Henriquez M.D., Ph.D., Clinical and Biochemical Helicopter Engineer Jose D Richmond M.D., Biochemical Helicopter Engineer Husam Chapman, Ph.D. [facility], Director Clinical Chemistry labs This test was developed and its performance characteristics determined by [facility]. It has not been cleared or approved by the [place]. S. Food and Drug Administration. The test does not require FDA approval. Additional information regarding test use will be provided upon request. [facility] Acylcarn P C0, Free Carnitine 39.69 nmol/mL 19.67 - 102.55 12/30/2013 [facility] P C2, Acetylcarnitine 16.73 nmol/mL 2.60 - 39.23 12/30/2013 [facility] P C3, Propionylcarnitine 0.19 nmol/mL 0.15 - 1.06 12/30/2013 [facility] P C4, Isobutyryl / Butyrylcarnitine 0.14 nmol/mL 0.09 - 0.69 12/30/2013 [facility] P C5:1, Tiglylcarnitine 0.02 nmol/mL 0.02 - 0.09 12/30/2013 [facility] P C5, Isovaleryl/2-methylbutyryl/Pivaloyl 0.04 nmol/mL 0.04 - 0.31 12/30/2013 [facility] P C4-OH, 2-RH-slkmilhoikeulmrj 0.07 nmol/mL 0.01 - 0.30 12/30/2013 [facility] P C6, Hexonylcarnitine 0.07 nmol/mL 0.02 - 0.18 12/30/2013 [facility] P C5-OH,8-BZ-hgmbzopjdv/2-PP1-9-OH-butyryl 0.04 nmol/mL 0.02 - 0.09 12/30/2013 [facility] P C6-OH, 2-TE-psggbtnzjgblfvuxb 0.04 nmol/mL 0.02 - 0.11 12/30/2013 [facility] P C8:1, Octenoylcarnitine 0.12 nmol/mL 0.08 - 1.09 12/30/2013 [facility] P C8, Octanoylcarnitine 0.17 nmol/mL 0.04 - 0.45 12/30/2013 [facility] P C3-DC, Malonylcarnitine 0.06 nmol/mL 0.02 - 0.18 12/30/2013 [facility] P C10:1, Decenolycarnitine 0.13 nmol/mL 0.04 - 0.37 12/30/2013 [facility] P C10, Decanoylcarnitine 0.23 nmol/mL 0.03 - 0.54 12/30/2013 [facility] P C4-DC, Methylmalonylcarnitine 0.03 nmol/mL 0.03 - 0.14 12/30/2013 [facility] P C5-DC, Glutarylcarnitine 0.05 nmol/mL 0.03 - 0.17 12/30/2013 [facility] P C12:1, Dodecenoylcarnitine 0.08 nmol/mL 0.01 - 0.22 12/30/2013 [facility] P C12, Dodecanoylcarnitine 0.08 nmol/mL 0.02 - 0.30 12/30/2013 [facility] P C6-DC, 5-fzttls-oolrtyibnwoodszds 0.03 nmol/mL 0.02 - 0.22 12/30/2013 [facility] P C12-OH, 1-AD-idbrjqymvbdqdrkseu 0.01 nmol/mL 0.01 - 0.06 12/30/2013 [facility] P C14:2, Tetradecadienoylcarntine 0.08 nmol/mL 0.01 - 0.19 12/30/2013 [facility] P C14:1, Tetradecenoylcarnitine 0.16 nmol/mL 0.02 - 0.29 12/30/2013 [facility] P C14, Tetradecanoylcarnitine 0.05 nmol/mL 0.01 - 0.18 12/30/2013 [facility] P C14:1-OH, 1-QK-fepwewsmhrneljgvzunlaa 0.02 nmol/mL 0.01 - 0.07 12/30/2013 [facility] P C14-OH, 4-DV-iuzabwhxlrnnjifcehbnyj 0.01 nmol/mL 0.01 - 0.06 12/30/2013 [facility] P C16:1, Hexadecenoylcarnitine 0.06 nmol/mL 0.01 - 0.14 12/30/2013 [facility] P C16, Hexadecanoylcarnitine 0.11 nmol/mL 0.03 - 0.30 12/30/2013 [facility] P C16:1-OH, 2-YC-lxcrhbmoireyxmptwtmwl 0.02 nmol/mL 0.01 - 0.07 12/30/2013 [facility] P C16-OH, 1-VD-yafwebcnnpjkeznbvxkze 0.02 nmol/mL 0.01 - 0.06 12/30/2013 [facility] P C18:2, Linoleylcarnitine 0.10 nmol/mL 0.02 - 0.20 12/30/2013 [facility] P C18:1, Oleylcarnitine 0.18 nmol/mL 0.03 - 0.34 12/30/2013 [facility] P C18, Stearoylcarnitine 0.06 nmol/mL 0.02 - 0.10 12/30/2013 [facility] P C18:2-OH, 5-PZ-tcgtggoyequwtpdcr 0.01 nmol/mL 0.01 - 0.04 12/30/2013 [facility] P C18:1-OH, 1-XR-yiqfuxsqpsqvsz 0.02 nmol/mL 0.00 - 0.04 12/30/2013 [facility] P C18-OH, 7-AE-mqgcghezcmtlutyut 0.01 nmol/mL 0.00 - 0.03 12/30/2013 [facility] P Acylcarnitine Interpretation Normal plasma acylcarnitine profile. 12/30/2013 [facility] P Acylcarnitine Method Comment This test was developed and its performance characteristics determined 12/30/2013 [facility] Vital Signs Vital Sign Value Date Comments Source Total Pain Calculation 0 [facility] NBP Cuff Sizes Adult
(12/26/2013 18:00:00) <sup> </sup> 12/26/2013 [facility] NBP Position Sitting
(12/26/2013 18:00:00) <sup> </sup> 12/26/2013 [facility] NBP Extremity Arm, right
(12/26/2013 18:00:00) < sup> </sup> 12/26/2013 [facility] NBP Activity Restless
(12/26/2013 18:00:00) <sup > </sup> 12/26/2013 [facility] Diastolic Blood Pressure Cuff Monitored 81 mm[Hg] 12/26/2013 [facility] Systolic Blood Pressure Cuff Monitored 134 mm[Hg] 12/26/2013 [facility] Heart Rate 88 bpm 12/26/2013 [facility] Respiratory Rate 16 BR/min [facility] Temperature Route Axillary
(12/26/2013 18:00:00) <sup> </sup> 12/26/2013 [facility] Temperature Celsius 36.5 Jessica 12/26/2013 [facility] SpO2 97 % 12/26/2013 [facility] NBP Position Lying
(12/26/2013 17:00:00) <sup> </ sup> 12/26/2013 [facility] NBP Cuff Sizes Adult
(12/26/2013 17:00:00) <sup> </sup> 12/26/2013 [facility] Systolic Blood Pressure Cuff Monitored 131 mm[Hg] 12/26/2013 [facility] NBP Extremity Arm, right
(12/26/2013 17:00:00) < sup> </sup> 12/26/2013 [facility] Diastolic Blood Pressure Cuff Monitored 89 mm[Hg] 12/26/2013 [facility] NBP Activity Crying
(12/26/2013 17:00:00) <sup> < /sup> 12/26/2013 [facility] Respiratory Rate 16 BR/min [facility] Temperature Celsius 36.8 Jessica 12/26/2013 [facility] Heart Rate 76 bpm 12/26/2013 [facility] Temperature Route Oral
(12/26/2013 17:00:00) <sup > </sup> 12/26/2013 [facility] Systolic Blood Pressure Cuff Monitored 101 mm[Hg] 12/26/2013 [facility] Diastolic Blood Pressure Cuff Monitored 63 mm[Hg] 12/26/2013 [facility] NBP Activity Sleeping
(12/26/2013 16:39:00) <sup > </sup> 12/26/2013 [facility] SpO2 97 % 12/26/2013 [facility] Respiratory Rate 16 BR/min [facility] Heart Rate 80 bpm 12/26/2013 [facility] Temperature Celsius 36.5 Jessica 12/26/2013 [facility] Temperature Route Core/Temporal
(12/26/2013 16:39 :00) <sup> </sup> 12/26/2013 [facility] Mean Arterial Pressure Cuff Monitored 73 mm[Hg] 12/26/2013 [facility] Oxygen Delivery Device Blow by
(12/26/2013 16:24: 00) <sup> </sup> 12/26/2013 [facility] Oxygen Flow Rate 15 L/min [facility] SpO2 99 % 12/26/2013 [facility] Heart Rate Monitored 67 bpm 12/26/2013 [facility] Mean Arterial Pressure Cuff Monitored 73 mm[Hg] 12/26/2013 [facility] End Tidal CO2 43 mm[Hg] 12/26 [facility] Heart Rate Monitored 87 bpm 12/26/2013 [facility] Mean Arterial Pressure Cuff Monitored 80 mm[Hg] 12/26/2013 [facility] End Tidal CO2 48 mm[Hg] 12/26 [facility] Heart Rate Monitored 96 bpm 12/26/2013 [facility] End Tidal CO2 52 mm[Hg] 12/26 [facility] NBP Position Sitting
(12/26/2013 14:00:00) <sup> </sup> 12/26/2013 [facility] Total Pain Calculation 0 [facility] Fraction of Inspired Oxygen 21 % 12/26/2013 [facility] NBP Cuff Sizes Small Adult
(12/26/2013 08:00:00) <sup> </sup> 12/26/2013 [facility] NBP Extremity Arm, right
(12/26/2013 08:00:00) < sup> </sup> 12/26/2013 [facility] Fraction of Inspired Oxygen 21 % 12/26/2013 [facility] Total Pain Calculation 6 [facility] Fraction of Inspired Oxygen 21 % 12/25/2013 [facility] Vital Signs Comment Other: Returned to unit 12/22/2013 [facility] Encounters Location Location Details Encounter Type Encounter Number Reason For Visit Attending Provider ADM Date DC Date Status Source [facility] [place] [id number] intractible vomiting Endy Avila 12/21/2013 12/26/2013 Active [facility] Procedures Plan of Care Social History Assessment and Plan Family History Advance Directives Functional Status
--- OUTSIDE RECORDS SUMMARY | 2018-02-05 16:01 | XMS REPORT | Clinical Summary ---
Author Author [facility] Organization [facility] Address Unknown Phone Unavailable Care Team Providers Care Digital Editor Name Role Phone Emergency, Nurse RN Unavailable Unavailable Reza Pillai MD PCP April Faust MD Unavailable Armida Trevino RN Unavailable Unavailable Jessy Love DO Unavailable Emil Overton MD Unavailable Unavailable Source Comments Some departments are not documenting in the electronic medical record. If you do not see the information that you expected, contact Release of Information in the Health Information Management department at [phone] for further assistance in locating additional records.[facility] Allergies No Known Allergies Current Medications [...] vomiting syndrome 09/26/2015 Overview: Initial diagnosis in [id number] at [facility] Intractable nausea and vomiting 04/28/2015 Hyponatremia 04/28/2015 [...] Taken Blood Pressure 135/87 09/26/2015 1:02 PM INSTRUMENT TECHNICIAN APPRENTICE Pulse 106 09/26/2015 1:02 PM INSTRUMENT TECHNICIAN APPRENTICE Temperature 36.3 C (97.3 F) 09/26/2015 1:02 PM INSTRUMENT TECHNICIAN APPRENTICE Respiratory Rate 16 09/26/2015 1:02 PM INSTRUMENT TECHNICIAN APPRENTICE Oxygen Saturation 98% 05/01/2015 11:59 AM CDT Inhaled Oxygen - - Concentration Weight 54.4 kg (120 lb) 09/26/2015 1:02 PM INSTRUMENT TECHNICIAN APPRENTICE Height 157.5 cm (5' 2") 09/26/2015 1:02 PM INSTRUMENT TECHNICIAN APPRENTICE Body Mass Index 21.95 09/26/2015 1:02 PM INSTRUMENT TECHNICIAN APPRENTICE Plan of Treatment Health Maintenance Due Date Last Done Comments PHYSICAL (COMPREHENSIVE) 2003 EXAM HPV VACCINES (1 of 3 - 2007 Female 3 Dose Series) PERTUSSIS VACCINE 2007 HIV SCREENING 2011 TETANUS VACCINE 2013 CERVICAL CANCER SCREENING 2017 INFLUENZA VACCINE 07/12/2018 Results Not on filefrom Last 3 Months
--- OUTSIDE RECORDS SUMMARY | 2018-02-05 16:16 | XMS REPORT | Continuity of Care Document ---
Author Author [facility] Address Unknown Phone Unavailable Allergies Active Description Code Type Severity Reaction Onset Reported/Identified Relationship to Patient Clinical Status Yes narcotic analgesic Drug Allergy 05/30/2010 Yes No Known Drug Allergies [id number] Drug Allergy Unknown N/A 01/12/2016 Medications There [...] Establ. 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 Patient [...] ESTABL. 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) 05/29/2009 JOYCELYN SERRATO FELICITY A V03.89 MENINGOCOCCAL, OTHER SPECIFIED SINGLE BACTERIAL DISEASE 05/29/2009 JYOCELYN SERRATO FELCIITY A V06.5 VACCINES PROPHYLACTIC NEED AGAINST TD [...] JEAN 372.00 ACUTE CONJUNCTIVITIS, UNSPECIFIED 03/19/2010 ELISSA NURSE MONITORING, LENCHO S 132.0 PEDICULUS CAPITIS [HEAD LOUSE] 03/19/2010 ELISSA SERRATO, LENCHO S 372.00 ACUTE CONJUNCTIVITIS, UNSPECIFIED 03/19/2010 ELISSA SERRATO, LENCHO S 132.0 PEDICULUS CAPITIS [HEAD LOUSE] 03/19/2010 ELISSA SERRATO, LENCHO S 372.00 ACUTE CONJUNCTIVITIS, UNSPECIFIED 03/19/2010 REVA REDMAN, ALPHONSE N 132.0 PEDICULUS CAPITIS [HEAD LOUSE] 03/19/2010 REVA REDMAN, ALPHONSE N 372.00 ACUTE CONJUNCTIVITIS, UNSPECIFIED 03/19/2010 LUZ MARINA KOENIG CAYDEN K 132.0 PEDICULUS CAPITIS [HEAD LOUSE] 03/19/2010 [...] REDMAN, JEAN 462 PHARYNGITIS ACUTE 11/05/2012 RAJYANET NURSE MONITORING, FELICITY A 462 PHARYNGITIS ACUTE 11/11/2012 786.2 [...] ALLERGIC RHINITIS DUE TO POLLEN 05/12/2013 GAYATHRI BOEWRS APRNNDA S 477.0 ALLERGIC RHINITIS DUE TO POLLEN 05/12/2013 ELISSA SERRATO LENCHO S 477.0 ALLERGIC RHINITIS DUE TO POLLEN 05/12/2013 ALPHONSE ARDON MD 477.0 ALLERGIC RHINITIS DUE TO POLLEN 05/12/2013 RAZA DO, CAYDEN K 477.0 ALLERGIC RHINITIS DUE TO POLLEN 05/12/2013 RAJOTTE NURSE MONITORING, FELICITY A 477.0 ALLERGIC RHINITIS DUE TO POLLEN 05/12/2013 JEAN NOYOLA MD 477.0 ALLERGIC RHINITIS DUE TO POLLEN 05/12/2013 RAJOTTE NURSE MONITORING, FELICITY A 477.0 ALLERGIC RHINITIS DUE TO POLLEN 07/14/2013 ELISSA SERRATO LENCHO S 729.1 MYALGIA AND MYOSITIS UNSPECIFIED 07/14/2013 FERNANDO BOWERS APRNA S 787.02 NAUSEA ALONE 07/14/2013 RAZA DO, CAYDEN K 729.1 MYALGIA AND MYOSITIS UNSPECIFIED 07/14/2013 RAZA DO, CAYDEN K 787.02 NAUSEA ALONE 07/14/2013 JEAN NOYOLA MD 729.1 MYALGIA AND MYOSITIS UNSPECIFIED 07/14/2013 DENNYS REDMAN JEAN 787.02 NAUSEA ALONE 07/14/2013 JEAN NOYOLA MD 729.1 MYALGIA AND MYOSITIS UNSPECIFIED 07/14/2013 DENNYS REDMAN JEAN 787.02 NAUSEA ALONE 07/14/2013 DENNYS REDMAN JEAN 729.1 MYALGIA AND MYOSITIS UNSPECIFIED [...] CAYDEN K 787.02 NAUSEA ALONE 07/14/2013 RAJOTTE NURSE MONITORING, FELICITY A 729.1 MYALGIA AND MYOSITIS UNSPECIFIED 07/14/2013 RAJOTTE NURSE MONITORING, FELICITY A 787.02 NAUSEA ALONE 07/14/2013 DENNYS REDMAN, JEAN 729.1 MYALGIA AND MYOSITIS UNSPECIFIED 07/14/2013 DENNYS REDMAN, JEAN 787.02 NAUSEA ALONE 07/14/2013 RAJOTTE NURSE MONITORING, FELICITY A 729.1 MYALGIA AND MYOSITIS UNSPECIFIED 07/14/2013 RAJOTTE NURSE MONITORING, FELICITY A 787.02 NAUSEA ALONE 08/08/2013 RAZA [...] APRN Ot 787.91 DIARRHEA 08/17/2013 ERIKA LEWIS NURSE MONITORING Ot 789.09 ABDOMINAL PAIN, OTHER SPECIFIED SITE [...] 311 DEPRESSIVE DISORDER NOT ELSEWHERE CLASSIFIED 08/23/2013 GAYATHRI BOWERS APRNNDA S 311 DEPRESSIVE DISORDER NOT ELSEWHERE CLASSIFIED 08/23/2013 GAYATHRI BOWERS APRNNDA S 311 DEPRESSIVE DISORDER NOT [...] FELICITY A 787.03 VOMITING ALONE 09/27/2013 JOYCELYN SERRAOT, FELICITY A 789.06 ABDOMINAL PAIN EPIGASTRIC 09/27/2013 [...] ABDOMINAL PAIN, RIGHT UPPER QUADRANT 11/17/2013 ELISSA NURSE MONITORING, LENCHO S 564.1 IRRITABLE BOWEL SYNDROME 11/17/2013 [...] 789.07 ABDOMINAL PAIN GENERALIZED 11/29/2013 ERIKA LEWIS NURSE MONITORING Ot 276.8 HYPOPOTASSEMIA 11/29/2013 ERIKA LEWIS NURSE MONITORING Ot 599.0 URIN TRACT INFECTION NOS 11/29/2013 ERIKA LEWIS NURSE MONITORING Ot 787.01 NAUSEA WITH VOMITING 12/07/2013 JEAN [...] 789.00 ABDOMINAL PAIN, UNSPECIFIED SITE 07/12/2014 JOYCELYN SERRATO FELICITY A 626.0 AMENORRHEA 07/12/2014 JOYCELYN SERRATO FELICITY A V25.09 CONTRACEPTIVE COUNSELING - GENERAL 07/12/2014 JOYCELYN NURSE MONITORING, FELICITY A V69.2 HIGH-RISK SEXUAL BEHAVIOR 07/12/2014 JOYCELYN NURSE MONITORING, FELICITY A V72.41 TEST NEGATIVE RESULT 07/12/2014 DENNYS REDMAN, JEAN 626.0 AMENORRHEA 07/12/2014 DENNYS REDMAN, JEAN V25.09 CONTRACEPTIVE COUNSELING - GENERAL 07/12/2014 DENNYS REDMAN, JEAN V69.2 HIGH-RISK SEXUAL BEHAVIOR 07/12/2014 DENNYS REDMAN, JEAN V72.41 TEST NEGATIVE RESULT 07/12/2014 JOYCELYN NURSE MONITORING, FELICITY A 626.0 AMENORRHEA 07/12/2014 JOYCELYN SERRATO FELICITY A V25.09 CONTRACEPTIVE COUNSELING - GENERAL 07/12/2014 JOYCELYN SERRATO FELICITY A V69.2 HIGH-RISK SEXUAL BEHAVIOR 07/12/2014 JOYCELYN NURSE MONITORING, FELICITY A V72.41 TEST NEGATIVE RESULT 09/05/2014 Ot 959.19 09/05/2014 Ot E849.4 09/05/2014 Ot E888.9 09/05/2014 ANDERS GRAY NURSE MONITORING Ot 787.01 09/05/2014 ANDERS GRAY NURSE MONITORING Ot 789.00 09/05/2014 Ot 959.19 09/05/2014 Ot E849.4 09/05/2014 Ot E888.9 09/05/2014 ANDERS GRAY NURSE MONITORING Ot 787.01 09/05/2014 ANDERS GRAY NURSE MONITORING Ot 789.00 09/05/2014 CADE REDMAN, DONNA Sunshine Ot 536.2 PERSISTENT VOMITING 09/05/2014 CADE REDMAN, DONNA Sunshine Ot 787.91 DIARRHEA 09/05/2014 DONNA MOHAMUD MD Ot 789.07 ABDOMINAL PAIN, GENERALIZED 09/12/2014 Ot 959.19 09/12/2014 Ot E849.4 09/12/2014 Ot E888.9 09/12/2014 ANDERS GRAY R NURSE MONITORING Ot 787.01 09/12/2014 ANDERS GRAY R NURSE MONITORING Ot 789.00 09/20/2014 JESSICA HIRSCH APRNYL Anthony V74.1 TB SCREENING 10/02/2014 Ot 959.19 10/02/2014 Ot E849.4 10/02/2014 Ot E888.9 10/02/2014 ANDERS GRAY R NURSE MONITORING Ot 787.01 10/02/2014 ANDERS GRAY NURSE MONITORING Ot 789.00 10/04/2014 NENA REDMAN, BESS Cruz Ot 466.0 ACUTE BRONCHITIS 10/04/2014 BESS BARRETT MD Ot 786.2 COUGH 04/11/2015 ANDERS GRAY R NURSE MONITORING Ot 787.01 04/11/2015 ANDERS GRAY R NURSE MONITORING Ot 789.00 04/11/2015 ERIKA LEWIS NURSE MONITORING Ot 305.21 CANNABIS ABUSE-CONTIN 04/11/2015 ERIKA LEWIS NURSE MONITORING Ot 536.2 PERSISTENT VOMITING 04/11/2015 ERIKA LEWIS NURSE MONITORING Ot 599.0 URIN TRACT INFECTION NOS 04/15/2015 DENNYS REDMAN, JEAN L Ot 276.2 ACIDOSIS 04/15/2015 DENNYS REDMAN, JEAN Brady Ot 276.51 DEHYDRATION 04/15/2015 JEAN NOYOLA MD Ot 276.8 HYPOPOTASSEMIA 04/15/2015 JEAN NOYOLA MD Ot 307.54 PSYCHOGENIC VOMITING 04/15/2015 JEAN NOYOLA MD Ot 788.1 DYSURIA 04/17/2015 ORLANDO MCDUFFIE Ot 305.20 CANNABIS ABUSE-UNSPEC 04/17/2015 ORLANDO MCDUFFIE Ot 536.2 PERSISTENT VOMITING 04/18/2015 ANDERS GRAY R NURSE MONITORING Ot 787.01 04/18/2015 ANDERS GRAY R NURSE MONITORING Ot 789.00 04/19/2015 JEAN NOYOLA MD Ot [...] Ot 787.03 VOMITING ALONE 05/20/2015 ERIKA LEWIS NURSE MONITORING Ot 276.8 HYPOPOTASSEMIA 05/20/2015 ERIKA LEWIS NURSE MONITORING Ot 599.0 URIN TRACT INFECTION NOS 05/20/2015 ERIKA LEWIS NURSE MONITORING Ot 787.01 NAUSEA WITH VOMITING 08/14/2015 ERIKA LEWIS NURSE MONITORING Ot F12.10 CANNABIS ABUSE, UNCOMPLICATED 08/14/2015 ERIKA LEWIS NURSE MONITORING Ot G43.A0 CYCLICAL VOMITING, NOT INTRACTABLE 08/14/2015 ERIKA LEWIS NURSE MONITORING Ot Z91.14 PATIENT'S OTHER NONCOMPLIANCE WITH MEDIC 08/20/2015 ANDERS GRAY NURSE MONITORING Ot 787.01 08/20/2015 ANDERS GRAY NURSE MONITORING Ot 789.00 08/21/2015 JASON LOPEZ MD Ot E87.6 HYPOKALEMIA 08/21/2015 JASON [...] HAYWARD DO Ot Z91.19 PATIENT'S NONCOMPLIANCE W [facility] 09/29/2015 HEIDI KOENIGMARYSOL Ot R10.9 [...] MD Ot G89.29 OTHER CHRONIC PAIN 10/10/2015 MYNOR GUILLAUME MD Ot K76.0 FATTY (CHANGE OF) LIVER, NOT ELSEWHERE C 10/10/2015 MYNOR GUILLAUME MD Ot K76.9 LIVER DISEASE, UNSPECIFIED 10/10/2015 MYNOR GUILLAUME MD Ot R10.84 GENERALIZED ABDOMINAL PAIN 12/10/2015 ANDERS GRAY NURSE MONITORING Ot 787.01 12/10/2015 ANDERS GRAY NURSE MONITORING Ot 789.00 12/10/2015 DONNA MOHAMUD MD Ot [...] ORLANDO MCDUFFIE Ot Z91.19 PATIENT'S NONCOMPLIANCE W [facility] 01/13/2016 Ot E87.1 HYPO- OSMOLALITY [...] L03.317 CELLULITIS OF BUTTOCK 02/22/2016 ERIKA LEWIS NURSE MONITORING Ot L02.31 CUTANEOUS ABSCESS OF BUTTOCK 02/25/2016 ERIKA LEWIS NURSE MONITORING Ot L02.31 CUTANEOUS ABSCESS OF BUTTOCK 02/25/2016 [...] CHANGE OR REMOVAL OF DRAIN 03/03/2016 ORLANDO MCDFUFIE Ot Z48.03 ENCOUNTER FOR CHANGE OR REMOVAL OF DRAIN 03/03/2016 ORLANDO MCDUFFIE Ot Z48.03 ENCOUNTER FOR CHANGE OR REMOVAL OF DRAIN 03/03/2016 ORLANDO MCDUFFIE Ot Z48.03 ENCOUNTER FOR CHANGE OR REMOVAL OF DRAIN 03/13/2016 ORLANDO MCDUFFIE Ot Z48.03 ENCOUNTER FOR CHANGE OR REMOVAL OF DRAIN 06/11/2016 ANDERS GRAY NURSE MONITORING Ot 787.01 NAUSEA WITH VOMITING 06/11/2016 ANDERS GRAY NURSE MONITORING Ot 789.00 ABDOMINAL PAIN, UNSPECIFIED SITE 06/12/2016 ANDERS GRAY NURSE MONITORING Ot 787.01 NAUSEA WITH VOMITING 06/12/2016 ANDERS GRAY NURSE MONITORING Ot 789.00 ABDOMINAL PAIN, UNSPECIFIED SITE 06/12/2016 [...] ZOHREH Ot R05 COUGH 08/10/2016 ANDERS GRAY NURSE MONITORING Ot 787.01 NAUSEA WITH VOMITING 08/10/2016 ANDERS GRAY R NURSE MONITORING Ot 789.00 ABDOMINAL PAIN, UNSPECIFIED SITE 08/10/2016 [...] OTHER NONSPECIFIC SKIN ERUPTION 08/12/2016 ANDERS GRAY NURSE MONITORING Ot 787.01 NAUSEA WITH VOMITING 08/12/2016 ANDERS GRAY NURSE MONITORING Ot 789.00 ABDOMINAL PAIN, UNSPECIFIED SITE 08/12/2016 ERIAK LEWIS NURSE MONITORING Ot L02.215 CUTANEOUS ABSCESS OF PERINEUM 08/14/2016 ERIKA LEWIS NURSE MONITORING Ot L02.215 CUTANEOUS ABSCESS OF PERINEUM 08/14/2016 [...] NAUSEA WITH VOMITING, UNSPECIFIED 08/15/2016 ERIKA LEWIS NURSE MONITORING Ot 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, UNCOMPLICATED 08/15/2016 ERIKA LEWIS APRN Ot F12.988 CANNABIS USE, UNSP WITH OTHER CANNABIS-I 08/15/2016 ERIKA LEWIS APRN Ot F13.10 SEDATIVE, HYPNOTIC OR ANXIOLYTIC ABUSE, 08/15/2016 ERIKA LEWIS NURSE MONITORING Ot F17.210 NICOTINE DEPENDENCE, CIGARETTES, UNCOMPL 08/15/2016 ERIKA LEWIS NURSE MONITORING Ot G43.A0 CYCLICAL VOMITING, NOT INTRACTABLE 08/18/2016 ERIKA LEWIS NURSE MONITORING Ot 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, UNCOMPLICATED 08/18/2016 ERIKA LEWIS APRN Ot F12.988 CANNABIS USE, UNSP WITH OTHER CANNABIS-I 08/18/2016 ERIKA LEWIS APRN Ot F13.10 SEDATIVE, HYPNOTIC OR ANXIOLYTIC ABUSE, 08/18/2016 ERIKA LEWIS APRN Ot F17.210 NICOTINE DEPENDENCE, CIGARETTES, UNCOMPL 08/18/2016 ERIKA LEWIS APRN Ot G43.A0 CYCLICAL VOMITING, NOT INTRACTABLE 11/30/2017 ANDERS GRAY NURSE MONITORING Ot 787.01 NAUSEA WITH VOMITING 11/30/2017 ANDERS GRAY NURSE MONITORING Ot 789.00 ABDOMINAL PAIN, UNSPECIFIED SITE 11/30/2017 [...] LOWER ABDOMINAL PAIN, UNSPECIFIED 12/01/2017 DONNA MOHAMUD MD, Ot Z32.02 ENCOUNTER FOR TEST, RESULT NEG 12/01/2017 DONNA MOHAMUD MD, Ot Z77.22 CNTCT W AND EXPSR TO ENVIRON TOBACCO SMO 12/01/2017 DONNA MOHAMUD MD, Ot Z87.01 PERSONAL HISTORY OF PNEUMONIA (RECURRENT 12/01/2017 DONNA MOHAMUD MD, Ot Z87.42 PERSONAL HISTORY OF OTH DISEASES OF THE 12/01/2017 DONNA MOHAMUD MD Ot Z90.49 ACQUIRED ABSENCE OF OTHER SPECIFIED PART 12/09/2017 ORLANDO MCDUFFIE Ot E86.9 VOLUME DEPLETION, UNSPECIFIED 12/09/2017 ORLANDO MCDUFFIE Ot F12.10 CANNABIS ABUSE, UNCOMPLICATED 12/09/2017 ORLANDO MCDUFFIE Ot F17.210 NICOTINE DEPENDENCE, CIGARETTES, UNCOMPL 12/09/2017 ORLANDO MCDUFFIE Ot F32.9 MAJOR DEPRESSIVE DISORDER, SINGLE EPISOD 12/09/2017 ORLANDO MCDUFFIE Ot F41.9 ANXIETY DISORDER, UNSPECIFIED 12/09/2017 ORLANDO MCDUFFIE Ot J45.909 UNSPECIFIED ASTHMA, UNCOMPLICATED 12/09/2017 ORLANDO MCDUFFIE Ot R10.2 PELVIC AND PERINEAL PAIN 12/09/2017 ORLANDO MCDUFFIE Ot Z33.1 STATE, INCIDENTAL 12/09/2017 ORLANDO MCDUFFIE Ot Z82.49 FAMILY HX OF ISCHEM HEART DIS AND OTH DI 12/09/2017 ORLANDO MCDUFFIE Ot Z87.01 PERSONAL HISTORY OF PNEUMONIA (RECURRENT 12/09/2017 ORLANDO MCDUFFIE Ot Z87.448 PERSONAL HISTORY OF OTHER DISEASES OF UR 12/09/2017 ORLANDO MCDUFFIE Ot Z90.49 ACQUIRED ABSENCE OF [...] Z90.49 ACQUIRED ABSENCE OF OTHER SPECIFIED PART 12/15/2017 MAINOR DO, ZOHREH K Ot F12.10 CANNABIS ABUSE, UNCOMPLICATED 12/15/2017 MAINOR DO, ZOHREH K Ot F17.210 NICOTINE DEPENDENCE, CIGARETTES, UNCOMPL 12/15/2017 MAINOR DO, ZOHREH K Ot F32.9 MAJOR DEPRESSIVE DISORDER, SINGLE EPISOD 12/15/2017 MAINOR DO, ZOHREH K Ot F41.9 ANXIETY DISORDER, UNSPECIFIED 12/15/2017 MAINOR DO, ZOHREH K Ot J45.909 UNSPECIFIED ASTHMA, UNCOMPLICATED 12/15/2017 ZOHREH HAYWARD DO Ot O21.9 VOMITING OF , UNSPECIFIED 12/15/2017 ZOHREH HAYWARD DO Ot O99.321 DRUG USE COMPLICATING , FIRST T 12/15/2017 ZOHREH HAYWARD DO Ot O99.331 SMOKING (TOBACCO) COMPLICATING 12/15/2017 MAINOR KOENIG ZOHREH Fontana Ot O99.341 OTH MENTAL DISORDERS COMPLICATING PREGNA 12/15/2017 MAINOR KOENIG ZOHREH Fontana Ot O99.511 DISEASES OF THE RESP SYS COMP , 12/15/2017 MAINOR KOENIG ZOHREH Fontana Ot O99.89 OTH DISEASES AND CONDITIONS COMPL PREG/C 12/15/2017 MAINOR KOENIG ZOHREH Marizol Ot R10.30 LOWER ABDOMINAL PAIN, UNSPECIFIED 12/15/2017 MAINOR KOENIG ZOHREH Fontana Ot Z3A.01 LESS THAN 8 WEEKS GESTATION OF 12/15/2017 MAINOR KOENIG ZOHREH Fontana Ot Z82.49 FAMILY HX OF ISCHEM HEART DIS AND OTH DI 12/15/2017 MAINOR KOENIG ZOHREH Fontana Ot Z87.01 PERSONAL HISTORY OF PNEUMONIA (RECURRENT 12/15/2017 MAINOR KOENIG ZOHREH Fontana Ot Z87.448 PERSONAL HISTORY OF OTHER DISEASES OF UR 12/15/2017 MAINOR KOENIG ZOHREH Marizol Ot Z90.49 ACQUIRED ABSENCE OF OTHER SPECIFIED PART 12/16/2017 ERIKA LEWIS APRN Ot B96.89 OTH BACTERIAL AGENTS THE CAUSE OF DIS 12/16/2017 ERIKA LEWIS APRN Ot F12.10 CANNABIS ABUSE, UNCOMPLICATED 12/16/2017 ERIKA LEWIS APRN Ot F19.10 OTHER PSYCHOACTIVE SUBSTANCE ABUSE, UNCO 12/16/2017 ERIKA LEWIS APRN Ot F32.9 MAJOR DEPRESSIVE DISORDER, SINGLE EPISOD 12/16/2017 ERIKA LEWIS APRN Ot F41.9 ANXIETY DISORDER, UNSPECIFIED 12/16/2017 ERIKA LEWIS APRN Ot J45.909 UNSPECIFIED ASTHMA, UNCOMPLICATED 12/16/2017 ERIKA LEWIS APRN Ot O21.9 VOMITING OF , UNSPECIFIED 12/16/2017 ERIKA LEWIS APRN Ot O23.591 INFECTION OTH PRT GENITL TRCT IN PREGNAN 12/16/2017 ERIKA LEWIS APRN Ot O99.321 DRUG USE COMPLICATING , FIRST T 12/16/2017 ERIKA LEWIS APRN Ot O99.341 OTH MENTAL DISORDERS COMPLICATING PREGNA 12/16/2017 ERIKA LEWIS APRN Ot O99.511 DISEASES OF THE RESP SYS COMP , 12/16/2017 ERIKA LEWIS APRN Ot Z3A.01 LESS THAN 8 WEEKS GESTATION OF 12/16/2017 ERIKA LEWIS APRN Ot Z77.22 CNTCT W AND EXPSR TO ENVIRON TOBACCO SMO 12/16/2017 ERIKA LEWIS APRN Ot Z82.49 FAMILY HX OF ISCHEM HEART DIS AND OTH DI 12/16/2017 ERIKA LEWIS APRN Ot Z87.01 PERSONAL HISTORY OF PNEUMONIA (RECURRENT 12/16/2017 ERIKA LEWIS APRN Ot Z87.448 PERSONAL HISTORY OF OTHER DISEASES OF UR 12/16/2017 ERIKA LEWIS APRN Ot Z90.49 ACQUIRED ABSENCE OF OTHER SPECIFIED PART 12/16/2017 ERIKA LEWIS APRN Ot Z91.14 PATIENT'S OTHER NONCOMPLIANCE WITH MEDIC 12/17/2017 MAINOR DO, ZOHREH K Ot F12.10 CANNABIS ABUSE, UNCOMPLICATED 12/17/2017 MAINOR DO, ZOHREH K Ot F17.210 NICOTINE DEPENDENCE, CIGARETTES, UNCOMPL 12/17/2017 MAINOR DO, ZOHREH K Ot F32.9 MAJOR DEPRESSIVE DISORDER, SINGLE EPISOD 12/17/2017 MAINOR DO, ZOHREH K Ot F41.9 ANXIETY DISORDER, UNSPECIFIED 12/17/2017 MAINOR DO, ZOHREH K Ot J45.909 UNSPECIFIED ASTHMA, UNCOMPLICATED 12/17/2017 MAINOR DO, ZOHREH K Ot O21.9 VOMITING OF , UNSPECIFIED 12/17/2017 MAINOR DO, ZOHREH K Ot O99.321 DRUG USE COMPLICATING , FIRST T 12/17/2017 MAINOR DO ZOHREH K Ot O99.331 SMOKING (TOBACCO) COMPLICATING 12/17/2017 MAINOR DO, ZOHREH K Ot O99.341 OTH MENTAL DISORDERS COMPLICATING PREGNA 12/17/2017 MAINOR DO ZOHREH K Ot O99.511 DISEASES OF THE RESP SYS COMP , 12/17/2017 MAINOR DO, ZOHREH K Ot O99.89 OTH DISEASES AND CONDITIONS COMPL PREG/C 12/17/2017 ZOHREH HAYWARD DO Ot R10.30 LOWER ABDOMINAL PAIN, UNSPECIFIED 12/17/2017 ZOHREH HAYWARD DO Ot Z3A.01 LESS THAN 8 WEEKS GESTATION OF 12/17/2017 ZOHREH HAYWARD DO Ot Z82.49 FAMILY HX OF ISCHEM HEART DIS AND OTH DI 12/17/2017 ZOHREH HAYWARD DO Ot Z87.01 PERSONAL HISTORY OF PNEUMONIA (RECURRENT 12/17/2017 ZOHREH HAYWARD DO Ot Z87.448 PERSONAL HISTORY OF OTHER DISEASES OF UR 12/17/2017 ZOHREH HAYWARD DO Ot Z90.49 ACQUIRED ABSENCE OF OTHER SPECIFIED PART 12/17/2017 ERIKA LEWIS APRN Ot R11.10 VOMITING, UNSPECIFIED 12/18/2017 ERIKA LEWIS APRN Ot B96.89 OTH BACTERIAL AGENTS THE CAUSE OF DIS 12/18/2017 ERIKA LEWIS APRN Ot F12.10 CANNABIS ABUSE, UNCOMPLICATED 12/18/2017 ERIKA LEWIS APRN Ot F19.10 OTHER PSYCHOACTIVE SUBSTANCE ABUSE, UNCO 12/18/2017 ERIKA LEWIS APRN Ot F32.9 MAJOR DEPRESSIVE DISORDER, SINGLE EPISOD 12/18/2017 ERIKA LEWIS APRN Ot F41.9 ANXIETY DISORDER, UNSPECIFIED 12/18/2017 ERIKA LEWIS APRN Ot J45.909 UNSPECIFIED ASTHMA, UNCOMPLICATED 12/18/2017 ERIKA LEWIS APRN Ot O21.9 VOMITING OF , UNSPECIFIED 12/18/2017 ERIKA LEWIS APRN Ot O23.591 INFECTION OTH PRT GENITL TRCT IN PREGNAN 12/18/2017 ERIKA LEWIS APRN Ot O99.321 DRUG USE COMPLICATING , FIRST T 12/18/2017 ERIKA LEWIS APRN Ot O99.341 OTH MENTAL DISORDERS COMPLICATING PREGNA 12/18/2017 ERIKA LEWIS APRN Ot O99.511 DISEASES OF THE RESP SYS COMP , 12/18/2017 ERIKA LEWIS APRN Ot Z3A.01 LESS THAN 8 WEEKS GESTATION OF 12/18/2017 ERIKA LEWIS APRN Ot Z77.22 CNTCT W AND EXPSR TO ENVIRON TOBACCO SMO 12/18/2017 ERIKA LEWIS NURSE MONITORING Ot Z82.49 FAMILY HX OF ISCHEM HEART DIS AND OTH DI 12/18/2017 ERIKA LEWIS NURSE MONITORING Ot Z87.01 PERSONAL HISTORY OF PNEUMONIA (RECURRENT 12/18/2017 ERIKA LEWIS NURSE MONITORING Ot Z87.448 PERSONAL HISTORY OF OTHER DISEASES OF UR 12/18/2017 ERIKA LEWIS NURSE MONITORING Ot Z90.49 ACQUIRED ABSENCE OF OTHER SPECIFIED PART 12/18/2017 ERIKA LEWIS NURSE MONITORING Ot Z91.14 PATIENT'S OTHER NONCOMPLIANCE WITH MEDIC 12/19/2017 ISAAC ANDERS R NURSE MONITORING Ot 787.01 NAUSEA WITH VOMITING 12/19/2017 ISAAC, ANDERS R NURSE MONITORING Ot 789.00 ABDOMINAL PAIN, UNSPECIFIED SITE 12/19/2017 ISAAC, ANDERS R NURSE MONITORING Ot 787.01 NAUSEA WITH VOMITING 12/19/2017 ISAAC, ANDERS R NURSE MONITORING Ot 789.00 ABDOMINAL PAIN, UNSPECIFIED SITE 12/19/2017 KARINA, [employer] Ot 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, UNCOMPLICATED 12/19/2017 KARINA, [employer] Ot F12.188 CANNABIS ABUSE WITH OTHER CANNABIS-INDUC 12/19/2017 KARINA, [employer] Ot F12.90 CANNABIS USE, UNSPECIFIED, UNCOMPLICATED 12/19/2017 KARINA, [employer] Ot F32.9 MAJOR DEPRESSIVE DISORDER, SINGLE EPISOD 12/19/2017 KARINA, [employer] Ot F41.9 ANXIETY DISORDER, UNSPECIFIED 12/19/2017 KARINA, [employer] Ot J45.909 UNSPECIFIED ASTHMA, UNCOMPLICATED 12/19/2017 KARINA, [employer] Ot O21.9 VOMITING OF , UNSPECIFIED 12/19/2017 KARINA, [employer] Ot O99.321 DRUG USE COMPLICATING , FIRST T 12/19/2017 KARINA, [employer] Ot O99.341 OTH MENTAL DISORDERS COMPLICATING PREGNA 12/19/2017 KARINA, [employer] Ot O99.511 DISEASES OF THE RESP SYS COMP , 12/19/2017 KARINA, [employer] Ot Z3A.01 LESS THAN 8 WEEKS GESTATION OF 12/19/2017 KARINA, [employer] Ot Z77.22 CNTCT W AND EXPSR TO ENVIRON TOBACCO SMO 12/19/2017 KARINA, [employer] Ot Z87.01 PERSONAL HISTORY OF PNEUMONIA (RECURRENT 12/19/2017 KARINA, [employer] Ot Z87.42 PERSONAL HISTORY OF OTH DISEASES OF THE 12/19/2017 KARINA, [employer] Ot Z90.49 ACQUIRED ABSENCE OF OTHER SPECIFIED PART 12/21/2017 KARINA, [employer] Ot 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, UNCOMPLICATED 12/21/2017 KARINA, [employer] Ot F12.188 CANNABIS ABUSE WITH OTHER CANNABIS-INDUC 12/21/2017 KARINA, [employer] Ot F12.90 CANNABIS USE, UNSPECIFIED, UNCOMPLICATED 12/21/2017 KARINA, [employer] Ot F32.9 MAJOR DEPRESSIVE DISORDER, SINGLE EPISOD 12/21/2017 KARINA, [employer] Ot F41.9 ANXIETY DISORDER, UNSPECIFIED 12/21/2017 KARINA, [employer] Ot J45.909 UNSPECIFIED ASTHMA, UNCOMPLICATED 12/21/2017 KARINA, [employer] Ot O21.9 VOMITING OF , UNSPECIFIED 12/21/2017 KARINA, [employer] Ot O99.321 DRUG USE COMPLICATING , FIRST T 12/21/2017 KARINA, [employer] Ot O99.341 OTH MENTAL DISORDERS COMPLICATING PREGNA 12/21/2017 KARINA, [employer] Ot O99.511 DISEASES OF THE RESP SYS COMP , 12/21/2017 KARINA, [employer] Ot Z3A.01 LESS THAN 8 WEEKS GESTATION OF 12/21/2017 KARINA, [employer] Ot Z77.22 CNTCT W AND EXPSR TO ENVIRON TOBACCO SMO 12/21/2017 KARINA, [employer] Ot Z87.01 PERSONAL HISTORY OF PNEUMONIA (RECURRENT 12/21/2017 KARINA, [employer] Ot Z87.42 PERSONAL HISTORY OF OTH DISEASES OF THE 12/21/2017 KARINA, [employer] Ot Z90.49 ACQUIRED ABSENCE OF OTHER SPECIFIED PART 12/21/2017 ORLANDO MCDUFFIE Ot E86.9 VOLUME DEPLETION, UNSPECIFIED 12/21/2017 ORLANDO MCDUFFIE Ot E87.6 HYPOKALEMIA 12/21/2017 ORLANDO MCDUFFIE Ot F12.10 CANNABIS ABUSE, UNCOMPLICATED 12/21/2017 ORLANDO MCDUFFIE Ot F32.9 MAJOR DEPRESSIVE DISORDER, SINGLE EPISOD 12/21/2017 ORLANDO MCDUFFIE Ot F41.9 ANXIETY DISORDER, UNSPECIFIED 12/21/2017 ORLANDO MCDUFFIE Ot J45.909 UNSPECIFIED ASTHMA, UNCOMPLICATED 12/21/2017 ORLANDO MCDUFFIE Ot O21.9 VOMITING OF , UNSPECIFIED 12/21/2017 ORLANDO MCDUFFIE Ot O99.281 ENDO, NUTRITIONAL AND METAB DISEASES COM 12/21/2017 ORLANDO MCDUFFIE Ot O99.321 DRUG USE COMPLICATING , FIRST T 12/21/2017 ORLANDO MCDUFFIE Ot O99.341 OTH MENTAL DISORDERS COMPLICATING PREGNA 12/21/2017 ORLANDO MCDUFFIE Ot O99.511 DISEASES OF THE RESP SYS COMP , 12/21/2017 ORLANDO MCDUFFIE Ot O9A.22 INJ/POISN/OTH CONSEQ OF EXTERNAL CAUSES 12/21/2017 ORLANDO MCDUFFIE Ot T40.7X5A ADVERSE EFFECT OF CANNABIS (DERIVATIVES) 12/21/2017 ORLANDO MCDUFFIE Ot Z3A.01 LESS THAN 8 WEEKS GESTATION OF 12/21/2017 ORLANDO MCDUFFIE Ot Z77.22 CNTCT W AND EXPSR TO ENVIRON TOBACCO SMO 12/21/2017 ORLANDO MCDUFFIE Ot Z82.49 FAMILY HX OF ISCHEM HEART DIS AND OTH DI 12/21/2017 ORLANDO MCDUFFIE Ot Z87.01 PERSONAL HISTORY OF PNEUMONIA (RECURRENT 12/21/2017 ORLANDO MCDUFFIE Ot Z87.448 PERSONAL HISTORY OF OTHER DISEASES OF UR 12/21/2017 ORLANDO MCDUFFIE Ot Z90.49 ACQUIRED ABSENCE OF OTHER SPECIFIED PART 12/23/2017 ORLANDO MCDUFFIE Ot E86.9 VOLUME DEPLETION, UNSPECIFIED 12/23/2017 ORLANDO MCDUFFIE Ot E87.6 HYPOKALEMIA 12/23/2017 ORLANDO MCDUFFIE Ot F12.10 CANNABIS ABUSE, UNCOMPLICATED 12/23/2017 ORLANDO MCDUFFIE Ot F32.9 MAJOR DEPRESSIVE DISORDER, SINGLE EPISOD 12/23/2017 ORLNADO MCDUFFIE Ot F41.9 ANXIETY DISORDER, UNSPECIFIED 12/23/2017 ORLANDO MCDUFFIE Ot J45.909 UNSPECIFIED ASTHMA, UNCOMPLICATED 12/23/2017 ORLANDO MCDUFFIE Ot O21.9 VOMITING OF , UNSPECIFIED 12/23/2017 [place] MCDUFFIE Ot O99.281 ENDO, NUTRITIONAL AND METAB DISEASES COM 12/23/2017 [place] MCDUFFIE Ot O99.321 DRUG USE COMPLICATING , FIRST T 12/23/2017 [place] MCDUFFIE Ot O99.341 OTH MENTAL DISORDERS COMPLICATING PREGNA 12/23/2017 [place] MCDUFFIE Ot O99.511 DISEASES OF THE RESP SYS COMP , 12/23/2017 [place] MCDUFFIE Ot O9A.22 INJ/POISN/OTH CONSEQ OF EXTERNAL CAUSES 12/23/2017 [place] MCDUFFIE Ot T40.7X5A ADVERSE EFFECT OF CANNABIS (DERIVATIVES) 12/23/2017 [place] MCDUFFIE Ot Z3A.01 LESS THAN 8 WEEKS GESTATION OF 12/23/2017 [place] MCDUFFIE Ot Z77.22 CNTCT W AND EXPSR TO ENVIRON TOBACCO SMO 12/23/2017 [place] MCDUFFIE Ot Z82.49 FAMILY HX OF ISCHEM HEART DIS AND OTH DI 12/23/2017 [place] MCDUFFIE Ot Z87.01 PERSONAL HISTORY OF PNEUMONIA (RECURRENT 12/23/2017 [place] MCDUFFIE Ot Z87.448 PERSONAL HISTORY OF OTHER DISEASES OF UR 12/23/2017 [place] MCDUFFIE Ot Z90.49 ACQUIRED ABSENCE OF OTHER SPECIFIED PART 01/28/2018 ANDERS GRAY NURSE MONITORING Ot 787.01 NAUSEA WITH VOMITING 01/28/2018 ANDERS GRAY NURSE MONITORING Ot 789.00 ABDOMINAL PAIN, UNSPECIFIED SITE 02/01/2018 ERIKA LEWIS APRN Ot F32.9 MAJOR DEPRESSIVE DISORDER, SINGLE EPISOD 02/01/2018 ERIKA LEWIS APRN Ot F41.9 ANXIETY DISORDER, UNSPECIFIED 02/01/2018 ERIKA LEWIS APRN Ot J45.909 UNSPECIFIED ASTHMA, UNCOMPLICATED 02/01/2018 ERIKA LEWIS APRN Ot O99.341 OTH MENTAL DISORDERS COMPLICATING PREGNA 02/01/2018 ERIKA LEWIS APRN Ot O99.511 DISEASES OF THE RESP SYS COMP , 02/01/2018 ERIKA LEWIS APRN Ot O99.89 OTH DISEASES AND CONDITIONS COMPL PREG/C 02/01/2018 ERIKA LEWIS APRN Ot R82.71 BACTERIURIA 02/01/2018 ERIKA LEWIS APRN Ot Z3A.12 12 WEEKS GESTATION OF 02/01/2018 ERIKA LEWIS APRN Ot Z77.22 CNTCT W AND EXPSR TO ENVIRON TOBACCO SMO 02/01/2018 ERIKA LEWIS APRN Ot Z82.49 FAMILY HX OF ISCHEM HEART DIS AND OTH DI 02/01/2018 ERIKA LEWIS APRN Ot Z87.01 PERSONAL HISTORY OF PNEUMONIA (RECURRENT 02/01/2018 ERIKA LEWIS APRN Ot Z87.448 PERSONAL HISTORY OF OTHER DISEASES OF UR 02/01/2018 ERIKA LEWIS APRN Ot Z90.49 ACQUIRED ABSENCE OF OTHER SPECIFIED PART Procedures Code Description [place] [address] STREP A (IN-HOUSE) 11/05/2012 58051 UA LONG DIP 07/14/2013 85232 URINE TEST (IN- HOUSE) 07/14/2013 85147 ROUTINE VENIPUNCTURE 09/28/2013 39456 H PYLORI (IN-HOUSE) 09/28/2013 39648 ESR/SED RATE 09/28/2013 42247 US GALLBLADDER ULTRASOUND 09/29/2013 35759 CBC W/MANUAL DIF (order) 09/29/2013 8294941 COMPLETE BLOOD COUNT NO DIFF (CBC Result) 09/29/2013 78742 DIFFERENTIAL WBC COUNT (CBC DIFF RESULT) 09/29/2013 36306 CRP 09/29/2013 87297 CELIAC DISEASE ANALYZER 09/30/2013 00174 H PYLORI (IN-HOUSE) 10/27/2013 45.16 ESOPHAGOGASTRODUODENOSCOPY [ EGD] W/CLOSE 10/31/2013 51.23 LAPAROSCOPIC CHOLECYSTECTOMY 11/02/2013 46243 URINE DRUG SCREEN (IN-HOUSE ) 11/17/2013 44371 TEST, URINE (IN- HOUSE) 11/17/2013 47.01 LAPAROSCOP APPENDECTOMY 12/05/2013 65.25 OTH LAPAROSCOP LOCAL EXCIS/ DESTRUCT OVAR 12/05/2013 66.61 DESTROY FALLOP TUBE LES 12/05/2013 69.19 DESTRUC UTER SUPPORT NEC 12/05/2013 70.32 EXCIS CUL-DE-SAC LESION 12/05/2013 GASTROENT [facility], GI 12/14/2013 62607 TEST, URINE (IN- HOUSE) 07/12/2014 [facility] AND[facility] GRAY 07/30/2014 17189 TB TEST INTRADERMAL 09/20/2014 Results Test Result [...] culture - 08/14/16 06:00 Bacterial urine culture [id number] NRG COLONY COUNT 10,000/ML - 100,000/ML NRG [...] 18:17 Serum or plasma choriogonadotropin measurement (units/volume) 29383 m[iU]/mL <5 Complete blood count (CBC) with automated white blood cell (WBC) differential - 12/16/17 13:20 Blood leukocytes automated count (number/volume) 13.8 10*3/uL 4.3-11.0 Blood erythrocytes automated count (number/volume) 4.41 10*6/uL 4.35-5.85 Venous blood hemoglobin measurement (mass/volume) 14.2 g/dL 11.5-16.0 Blood hematocrit (volume fraction) 39 % 35-52 Automated erythrocyte mean corpuscular volume 88 [foz_us] 80-99 Automated erythrocyte mean corpuscular hemoglobin (mass per erythrocyte) 32 pg 25-34 Automated erythrocyte mean corpuscular hemoglobin concentration measurement ( mass/volume) 37 g/dL 32-36 Automated erythrocyte distribution width ratio 12.3 % 10.0-14.5 Automated blood platelet count (count/volume) 320 10*3/uL 130-400 Automated blood platelet mean volume measurement 9.3 [foz_us] 7.4-10.4 Automated blood neutrophils/100 leukocytes 94 % 42-75 Automated blood lymphocytes/100 leukocytes 5 % 12-44 Blood monocytes/100 leukocytes 1 % 0-12 Automated blood eosinophils/100 leukocytes 0 % 0-10 Automated blood basophils/100 leukocytes 0 % 0-10 Blood neutrophils automated count (number/volume) 12.9 10*3 1.8-7.8 Blood lymphocytes automated count (number/volume) 0.7 10*3 1.0-4.0 Blood monocytes automated count (number/volume) 0.2 10*3 0.0-1.0 Automated eosinophil count 0.0 10*3/uL 0.0-0.3 Automated blood basophil count (count/volume) 0.0 10*3/uL 0.0-0.1 Comprehensive metabolic panel - 12/16/17 13:20 Serum or plasma sodium measurement (moles/volume) 136 mmol/L 135-145 Serum or plasma potassium measurement (moles/volume) 3.5 mmol/L 3.6-5.0 Serum or plasma chloride measurement (moles/volume) 104 mmol/L 98-107 Carbon dioxide 24 mmol/L 21-32 Serum or plasma anion gap determination (moles/volume) 8 mmol/L 5-14 Serum or plasma urea nitrogen measurement (mass/volume) 8 mg/dL 7-18 Serum or plasma creatinine measurement (mass/volume) 0.58 mg/dL 0.60-1.30 Serum or plasma urea nitrogen/creatinine mass ratio 14 NRG Serum or plasma creatinine measurement with calculation of estimated glomerular filtration rate > NRG Serum or plasma glucose measurement (mass/volume) 125 mg/dL 70-105 Serum or plasma calcium measurement (mass/volume) 9.4 mg/dL 8.5-10.1 Serum or plasma total bilirubin measurement (mass/volume) 0.8 mg/dL 0.1-1.0 Serum or plasma alkaline phosphatase measurement (enzymatic activity/volume) 60 U/L 40-136 Serum or plasma aspartate aminotransferase measurement (enzymatic activity/ volume) 13 U/L 5-34 Serum or plasma alanine aminotransferase measurement (enzymatic activity/volume ) 15 U/L 0-55 Serum or plasma protein measurement (mass/volume) 7.1 g/dL 6.4-8.2 Serum or plasma albumin measurement (mass/volume) 4.5 g/dL 3.2-4.5 Blood manual differential performed detection - 12/16/17 13:20 Blood monocytes/100 leukocytes 3 % NRG Manual blood segmented neutrophils/100 leukocytes 93 % NRG Blood band neutrophils/100 leukocytes 1 % NRG Manual blood lymphocytes/100 leukocytes 3 % NRG Manual eosinophils/100 leukocytes in nose 0 % NRG Manual blood basophils/100 leukocytes 0 % NRG Blood erythrocyte morphology finding identification NORMAL NRG Bacteria identification in genital specimen by aerobe culture - 12/16/17 13:43 FREE TEXT EXTERNAL PLUS NORMAL ARAVIND NRG QUANTITY OF GROWTH Abundant Growth NRG Bacteria identification in genital specimen by aerobe culture [id number] NRG Microscopic examination by wet preparation - 12/16/17 13:43 WET PREP RESULTS NO YEAST OBSERVED, NO TRICHOMONAS OBSERVED NRG Neisseria gonorrhoeae DNA detection by probe and signal amplification method - 12/16/17 13:43 Gonorrhea amp DNA-urine Not Detected Not Detected Chlamydia trachomatis DNA detection by probe and signal amplification method - 12/16/17 13:43 Chlamydia trachomatis DNA detection by probe and target amplification method Not Detected Not Detected Complete urinalysis with reflex to culture - 12/19/17 12:47 Urine color determination YELLOW NRG Urine clarity determination SLIGHTLY CLOUDY NRG Urine pH measurement by test strip 6.5 5-9 Specific gravity of urine by test strip 1.010 1.016- 1.022 Urine protein assay by test strip, semi-quantitative NEGATIVE NEGATIVE Urine glucose detection by automated test strip NEGATIVE NEGATIVE Erythrocytes detection in urine sediment by light microscopy NEGATIVE NEGATIVE Urine ketones detection by automated test strip 2+ NEGATIVE Urine nitrite detection by test strip [...] detection in urine sediment by light microscopy 10-20 NRG Crystals detection in urine sediment by light microscopy PRESENT NRG Casts detection in urine sediment by light microscopy NONE NRG Mucus detection in urine sediment by light microscopy NEGATIVE NRG Complete urinalysis with reflex to culture NO NRG Amorphous sediment detection in urine sediment by light microscopy FEW CHAZ URATES NRG Urine drug screening test - 12/19/17 12:47 Urine phencyclidine detection by screening method NEGATIVE [...] automated white blood cell (WBC) differential - 12/21/17 15:30 Blood leukocytes automated count (number/volume) 7.7 10*3/uL 4.3-11.0 Blood erythrocytes automated count (number/volume) 4.16 10*6/uL 4.35-5.85 Venous blood hemoglobin measurement (mass/volume) 13.5 g/dL 11.5-16.0 Blood hematocrit (volume fraction) 36 % 35-52 Automated erythrocyte mean corpuscular volume 86 [foz_us] 80-99 Automated erythrocyte mean corpuscular hemoglobin (mass per erythrocyte) 33 pg 25-34 Automated erythrocyte mean corpuscular hemoglobin concentration measurement ( mass/volume) 38 g/dL 32-36 Automated erythrocyte distribution width ratio 12.5 % 10.0-14.5 Automated blood platelet count (count/volume) 348 10*3/uL 130-400 Automated blood platelet mean volume measurement 9.1 [foz_us] 7.4-10.4 Automated blood neutrophils/100 leukocytes 70 % 42-75 Automated blood lymphocytes/100 leukocytes 20 % 12-44 Blood monocytes/100 leukocytes 8 % 0-12 Automated blood eosinophils/100 leukocytes 1 % 0-10 Automated blood basophils/100 leukocytes 0 % 0-10 Blood neutrophils automated count (number/volume) 5.4 10*3 1.8-7.8 Blood lymphocytes automated count (number/volume) 1.5 10*3 1.0-4.0 Blood monocytes automated count (number/volume) 0.6 10*3 0.0-1.0 Automated eosinophil count 0.1 10*3/uL 0.0-0.3 Automated blood basophil count (count/volume) 0.0 10*3/uL 0.0-0.1 Comprehensive metabolic panel - 12/21/17 15:30 Serum or plasma sodium measurement (moles/volume) 133 mmol/L 135-145 Serum or plasma potassium measurement (moles/volume) 2.6 mmol/L 3.6-5.0 Serum or plasma chloride measurement (moles/volume) 101 mmol/L 98-107 Carbon dioxide 24 mmol/L 21-32 Serum or plasma anion gap determination (moles/volume) 8 mmol/L 5-14 Serum or plasma urea nitrogen measurement (mass/volume) 6 mg/dL 7-18 Serum or plasma creatinine measurement (mass/volume) 0.49 mg/dL 0.60-1.30 Serum or plasma urea nitrogen/creatinine mass ratio 12 NRG Serum or plasma creatinine measurement with calculation of estimated glomerular filtration rate > NRG Serum or plasma glucose measurement (mass/volume) 99 mg/dL 70-105 Serum or plasma calcium measurement (mass/volume) 8.7 mg/dL 8.5-10.1 Serum or plasma total bilirubin measurement (mass/volume) 0.9 mg/dL 0.1-1.0 Serum or plasma alkaline phosphatase measurement (enzymatic activity/volume) 54 U/L 40-136 Serum or plasma aspartate aminotransferase measurement (enzymatic activity/ volume) 16 U/L 5-34 Serum or plasma alanine aminotransferase measurement (enzymatic activity/volume ) 15 U/L 0-55 Serum or plasma protein measurement (mass/volume) 5.8 g/dL 6.4-8.2 Serum or plasma albumin measurement (mass/volume) 3.9 g/dL 3.2-4.5 Lipase - 12/21/17 15:30 Lipase 7 U/L 8-78 Serum or plasma choriogonadotropin measurement (units/volume) - 12/21/17 15:30 Serum or plasma choriogonadotropin measurement (units/volume) 58997 m[iU]/mL <5 Urine drug screening test - 12/21/17 16:53 Urine phencyclidine detection by screening method NEGATIVE [...] screening method NEGATIVE NEGATIVE Urine oxycodone detection NEGATIVE NEGATIVE Urine propoxyphene detection NEGATIVE NEGATIVE Complete urinalysis with reflex to culture - 12/21/17 16:53 Urine color determination YELLOW NRG Urine clarity [...] Urine total bilirubin detection by test strip 1+ NEGATIVE Urine urobilinogen measurement by automated test strip (mass/volume) 4 mg/dL NORMAL Urine leukocyte esterase detection by [...] detection in urine sediment by light microscopy LARGE NRG Complete urinalysis with reflex to culture NO NRG Complete blood count (CBC) with automated white blood cell (WBC) differential - 01/28/18 12:41 Blood leukocytes automated count (number/volume) 10.5 10*3/uL 4.3-11.0 Blood erythrocytes automated count (number/volume) 4.28 10*6/uL 4.35-5.85 Venous blood hemoglobin measurement (mass/volume) 13.7 g/dL 11.5-16.0 Blood hematocrit (volume fraction) 38 % 35-52 Automated erythrocyte mean corpuscular volume 88 [foz_us] 80-99 Automated erythrocyte mean corpuscular hemoglobin (mass per erythrocyte) 32 pg 25-34 Automated erythrocyte mean corpuscular hemoglobin concentration measurement ( mass/volume) 36 g/dL 32-36 Automated erythrocyte distribution width ratio 12.7 % 10.0-14.5 Automated blood platelet count (count/volume) 372 10*3/uL 130-400 Automated blood platelet mean volume measurement 9.0 [foz_us] 7.4-10.4 Automated blood neutrophils/100 leukocytes 80 % 42-75 Automated blood lymphocytes/100 leukocytes 16 % 12-44 Blood monocytes/100 leukocytes 4 % 0-12 Automated blood eosinophils/100 leukocytes 0 % 0-10 Automated blood basophils/100 leukocytes 0 % 0-10 Blood neutrophils automated count (number/volume) 8.4 10*3 1.8-7.8 Blood lymphocytes automated count (number/volume) 1.7 10*3 1.0-4.0 Blood monocytes automated count (number/volume) 0.4 10*3 0.0-1.0 Automated eosinophil count 0.0 10*3/uL 0.0-0.3 Automated blood basophil count (count/volume) 0.0 10*3/uL 0.0-0.1 Comprehensive metabolic panel - 01/28/18 12:41 Serum or plasma sodium measurement (moles/volume) 136 mmol/L 135-145 Serum or plasma potassium measurement (moles/volume) 3.6 mmol/L 3.6-5.0 Serum or plasma chloride measurement (moles/volume) 108 mmol/L 98-107 Carbon dioxide 21 mmol/L 21-32 Serum or plasma anion gap determination (moles/volume) 7 mmol/L 5-14 Serum or plasma urea nitrogen measurement (mass/volume) 7 mg/dL 7-18 Serum or plasma creatinine measurement (mass/volume) 0.50 mg/dL 0.60-1.30 Serum or plasma urea nitrogen/creatinine mass ratio 14 NRG Serum or plasma creatinine measurement with calculation of estimated glomerular filtration rate > NRG Serum or plasma glucose measurement (mass/volume) 96 mg/dL 70-105 Serum or plasma calcium measurement (mass/volume) 8.9 mg/dL 8.5-10.1 Serum or plasma total bilirubin measurement (mass/volume) 0.7 mg/dL 0.1-1.0 Serum or plasma alkaline phosphatase measurement (enzymatic activity/volume) 47 U/L 40-136 Serum or plasma aspartate aminotransferase measurement (enzymatic activity/ volume) 14 U/L 5-34 Serum or plasma alanine aminotransferase measurement (enzymatic activity/volume ) 32 U/L 0-55 Serum or plasma protein measurement (mass/volume) 6.3 g/dL 6.4-8.2 Serum or plasma albumin measurement (mass/volume) 3.8 g/dL 3.2-4.5 Lipase - 01/28/18 12:41 Lipase 7 U/L 8-78 Complete urinalysis with reflex to culture - 01/28/18 13:06 Urine color determination YELLOW NRG Urine clarity determination CLEAR NRG Urine pH measurement by test strip 7 5-9 Specific gravity of urine by test strip 1.015 1.016- 1.022 Urine protein assay by test strip, semi-quantitative 1+ NEGATIVE Urine glucose detection by automated test [...] urine sediment by light microscopy FEW NRG Squamous epithelial cells detection in urine sediment by light microscopy 10-25 NRG Crystals detection in urine sediment by light microscopy NONE NRG Casts detection in urine sediment by light microscopy NONE NRG Mucus detection in urine sediment by light microscopy NEGATIVE NRG Complete urinalysis with reflex to culture YES NRG Amorphous sediment detection in urine sediment by light microscopy MOD CHAZ URATES NRG Urine drug screening test - 01/28/18 13:06 Urine phencyclidine detection by screening method NEGATIVE [...] screening method NEGATIVE NEGATIVE Urine oxycodone detection NEGATIVE NEGATIVE Urine propoxyphene detection NEGATIVE NEGATIVE Urine drug screening test - 01/28/18 13:06 Urine amphetamines detection by screening method Negative NRG Urine creatinine measurement (mass/volume) 198 % NRG Urine drug screening test Positive NRG Urine acetaminophen measurement (mass/volume) Negative NRG Urine barbiturates detection by screening method Negative NRG Urine benzodiazepines measurement by screening method (mass/volume) Negative NRG Cocaine [mass/volume] in urine Negative NRG Ethanol [mass/volume] in urine Negative NRG Serum or plasma 8-pysnsbtxit-7,7-lagxyjlm-2,3-diphenylpyrrolidine (eddp) detection Negative NRG Urine opiates detection Positive NRG Urine phencyclidine (PCP) detection Negative NRG Propoxyphene [mass/volume] in urine Negative NRG Urine salicylates measurement (mass/volume) Negative NRG Urine tetrahydrocannabinol detection by screening method Positive NRG Bacterial urine culture - 01/28/18 13:06 Bacterial urine culture [id number] NRG COLONY COUNT 10,000/ML - 100,000/ML NRG FREE TEXT ENTRY 2 MIXED GRAM POSITIVE ARAVIND <10,000/ML NRG Encounters ACCT No. Visit Date/Time Discharge Status Pt. Type Provider Facility Loc./Unit Complaint [id number] 09/20/2014 10:53:00 09/20/2014 23:59:59 CLS Outpatient FELICITY HIRSCH APRN [id number] 07/28/2014 14:45:00 07/28/2014 23:59:59 CLS Outpatient JEAN NOYOLA MD [id number] 07/12/2014 11:53:00 07/12/2014 23:59:59 CLS Outpatient JOYCELYN NURSE MONITORINGFELICITY Alegre [id number] 01/18/2014 13:03:00 01/18/2014 23:59:59 CLS Outpatient CAYDEN RAZA DO [id number] 12/14/2013 15:32:00 12/14/2013 23:59:59 CLS Outpatient ALPHONSE ARDON MD [id number] 11/17/2013 10:52:00 11/17/2013 23:59:59 CLS Outpatient LENCHO BOWERS APRN [id number] 10/27/2013 17:14:00 10/27/2013 23:59:59 CLS Outpatient LENCHO BOWERS APRN [id number] 09/28/2013 16:40:00 09/28/2013 23:59:59 CLS Outpatient JEAN NOYOLA MD [id number] 09/06/2013 10:41:00 09/06/2013 23:59:59 CLS Outpatient JEAN NOYOLA MD [id number] 08/23/2013 10:52:00 08/23/2013 23:59:59 CLS Outpatient JEAN NOYOLA MD [id number] 08/08/2013 17:51:00 08/08/2013 23:59:59 CLS Outpatient CAYDEN RAZA DO Marizol [id number] 07/14/2013 13:19:00 07/14/2013 23:59:59 CLS Outpatient LENCHO BOWERS APRN [id number] 11/11/2012 14:11:00 11/11/2012 23:59:59 CLS Outpatient [id number] 11/05/2012 14:42:00 11/05/2012 23:59:59 CLS Outpatient [id number] 05/20/2015 11:05:33 ACT Document Registration [id number] 01/28/2018 12:08:00 01/28/2018 13:40:00 DIS Outpatient ERIKA LEWIS APRN [facility] ER ABD PAIN [id number] 12/21/2017 14:07:00 12/21/2017 18:24:00 DIS Emergency [place] MCDUFFIE [facility] ER VOMITING [id number] 12/19/2017 10:51:00 12/19/2017 16:21:00 DIS Emergency MARTIN COLLINS [facility] ER VOMITING [id number] 12/17/2017 10:06:00 12/17/2017 11:05:00 DIS Emergency ERIKA LEWIS APRN [facility] ER VOMITING [id number] 12/16/2017 12:22:00 12/16/2017 15:14:00 DIS Emergency ERIKA LEWIS APRN [facility] ER VOMITING [id number] 12/15/2017 17:45:00 12/15/2017 20:30:00 DIS Emergency ZOHREH HAYWARD DO [facility] ER ABD PAIN; 5-6 WKS [id number] 12/09/2017 20:54:00 12/09/2017 23:40:00 DIS Emergency [place] MCDUFFIE [facility] ER EDOMETRIOSIS [id number] 11/30/2017 12:31:00 11/30/2017 14:57:00 DIS Emergency DONNA MOHAMUD MD [facility] ER PELVIC PAIN/SWELLING [id number] 08/15/2016 19:40:00 08/15/2016 22:44:00 DIS Emergency ERIKA LEWIS APRN [facility] ER STOMACH PAIN VOMITING [id number] 08/14/2016 04:53:00 08/14/2016 07:02:00 DIS Emergency DONNA MOHAMUD MD [facility] ER ABD PAIN [id number] 08/12/2016 13:32:00 08/12/2016 13:53:00 DIS Emergency ERIKA LEWIS APRN [facility] ER ABSCESS IN PELVIC AREA [id number] 08/10/2016 15:28:00 08/10/2016 17:04:00 DIS Emergency [place] MCDUFFIE [facility] ER POSS MRSA IN PELVIC AREA [id number] 06/11/2016 23:33:00 06/12/2016 00:46:00 DIS Emergency ZOHREH HAYWARD DO [facility] ER POSS BRONCHITIS [id number] 03/01/2016 13:10:00 03/01/2016 13:28:00 DIS Emergency [place] MCDUFFIE [facility] ER TUBE REMOVAL [id number] 02/25/2016 17:02:00 02/25/2016 18:03:00 DIS Emergency [place] MCDUFFIE [facility] ER WOUND CHECK [id number] 02/22/2016 12:02:00 02/22/2016 15:23:00 DIS Emergency ERIKA LEWIS APRN [facility] ER ABCESS ON BUTTOCKS [id number] 02/18/2016 17:25:00 02/18/2016 18:34:00 DIS Emergency MYNOR GUILLAUME MD [facility] ER SKIN RASH/WOUND [id number] 12/11/2015 17:28:00 12/11/2015 19:48:00 DIS Emergency [place] MCDUFFIE [facility] ER ABD PAIN [id number] 12/10/2015 09:39:00 12/10/2015 13:21:00 DIS Emergency DONNA MOHAMUD MD [facility] ER ABD PAIN/VOMITING [id number] 10/10/2015 07:47:00 10/10/2015 11:21:00 DIS Emergency MYNOR GUILLAUME MD [facility] ER ABD PAIN [id number] 10/08/2015 14:37:00 10/08/2015 16:38:00 DIS Emergency DONNA MOHAMUD MD [facility] ER ABD PAIN [id number] 10/04/2015 12:02:00 10/04/2015 15:05:00 DIS Emergency [place] MCDUFFIE [facility] ER STOMACH PAIN [id number] 09/29/2015 08:43:00 09/29/2015 13:13:00 DIS Emergency MYNOR GUILLAUME MD [facility] ER ABD PAIN [id number] 09/29/2015 01:21:00 09/29/2015 02:43:00 DIS Emergency MARYSOL GORDON DO [facility] ER ABDOMINAL CRAMPS [id number] 09/05/2015 03:51:00 09/05/2015 06:10:00 DIS Emergency ZOHREH HAYWARD DO [facility] ER ABD PAIN [id number] 09/01/2015 21:17:00 09/01/2015 22:43:00 DIS Emergency ZOHREH HAYWARD DO [facility] ER NAUSEA/VOMITING [id number] 08/20/2015 16:18:00 08/21/2015 11:06:00 DIS Inpatient JASON LOPEZ MD [facility] 4TH HYPOKALEMIA HYPONATREMIA ABD PAIN [id number] 08/14/2015 13:12:00 08/14/2015 15:36:00 DIS Emergency ERIKA LEWIS NURSE MONITORING [facility] ER VOMITING [id number] 05/20/2015 11:04:00 05/20/2015 13:53:00 DIS Emergency ERIKA LEWIS NURSE MONITORING [facility] ER VOMITING [id number] 05/15/2015 16:05:00 05/15/2015 19:40:00 DIS Emergency [place] MCDUFFIE [facility] ER N/V,ABD PAIN [id number] 05/10/2015 21:37:00 05/13/2015 10:55:00 DIS Inpatient JASON LOPEZ MD [facility] 4TH CYCLIC VOMITING [id number] 04/21/2015 13:36:00 04/21/2015 17:38:00 DIS Emergency [place] MCDUFFIE [facility] ER VOMTITING [id number] 04/17/2015 16:18:00 04/17/2015 18:40:00 DIS Emergency [place] MCDUFFIE [facility] ER VOMITING [id number] 04/13/2015 19:30:00 04/15/2015 11:55:00 DIS Inpatient JEAN NOYOLA MD [facility] SURGICAL INTRACTABLE N/V, DEHYDRATION [id number] 04/11/2015 11:02:00 04/11/2015 13:30:00 DIS Emergency ERIKA LEWIS NURSE MONITORING [facility] ER VOMITING [id number] 10/04/2014 10:43:00 10/04/2014 11:12:00 DIS Emergency BESS BARRETT MD [facility] ER COUGH/CONGESTION SORE THROAT [id number] 09/05/2014 17:37:00 09/05/2014 19:56:00 DIS Emergency DONNA MOHAMUD MD [facility] ER VOMTITING [id number] 12/18/2013 16:38:00 12/21/2013 15:50:00 DIS Inpatient JEAN NOYOLA MD [facility] 4TH INTRACTABLE VOMITING [id number] 11/30/2013 15:00:00 12/07/2013 14:45:00 DIS Inpatient JEAN NOYOLA MD [facility] 4TH INTRACTABLE VOMITING AND ABD PAIN UTI [id number] 11/29/2013 12:46:00 11/29/2013 16:59:00 DIS Emergency ERIKA LEWIS NURSE MONITORING [facility] ER VOMITING [id number] 10/31/2013 15:12:00 11/02/2013 19:30:00 DIS Inpatient LEAH LEYVA MD [facility] 4TH CHRONIC ABD PAIN;NAUSEA/ VOMITING;BILIARY DYSKENISA [id number] 10/25/2013 08:26:00 10/25/2013 23:59:59 CLS Outpatient ANDERS GRAY APRN [facility] RAD NAUSEA/VOMITING ABDOMINAL PAIN [id number] 08/17/2013 22:59:00 08/18/2013 19:50:00 DIS Inpatient JEAN NOYOLA MD [facility] 4TH INTRACTABLE N/V, LEUKOCYTOSIS,ELECTROLYTE DISTURBA [id number] 08/17/2013 15:20:00 08/17/2013 18:30:00 DIS Emergency ERIKA LEWIS APRN [facility] [facility] ER MULTIPLE COMPLAINTS [id number] 03/23/2013 16:10:00 03/23/2013 23:59:59 CLS Outpatient [id number] 01/15/2016 12:41:00 Document Registration [id number] 09/05/2014 17:37:00 Document Registration [id number] 02/06/2011 18:18:00 Document Registration [id number] 08/14/2009 11:15:00 Document Registration [id number] 06/27/2009 10:07:00 Document Registration
[2018-02-05 16:29] LABS: BILIRUBIN,URINE NEGATIVE (NEGATIVE); CLARITY,URINE CLEAR; COLOR,URINE YELLOW; GLUCOSE, URINE (UA) NEGATIVE (NEGATIVE); KETONES,URINE 4+ (NEGATIVE); LEUKOCYTE ESTERASE ,URINE 1+ (NEGATIVE); NITRITE,URINE NEGATIVE (NEGATIVE); PH,URINE 6 (5-9); PROTEIN,URINE 2+ (NEGATIVE); UROBILINOGEN,URINE 1 MG/DL (NORMAL)
[2018-02-05 16:40] LABS: BACTERIA,URINE FEW /HPF
[2018-02-05 16:41] LABS: AMPHETAMINE SCREEN, URINE NEGATIVE (NEGATIVE); BARBITURATE SCREEN URINE NEGATIVE (NEGATIVE); BENZODIAZEPINES SCREEN URINE NEGATIVE (NEGATIVE); CANNABINOID SCREEN, URINE POSITIVE (NEGATIVE); COCAINE SCREEN URINE NEGATIVE (NEGATIVE); METHADONE STAT NEGATIVE (NEGATIVE); METHAMPHETAMINE SCREEN URINE S NEGATIVE (NEGATIVE); OPIATE SCREEN URINE POSITIVE (NEGATIVE); OXYCODONE STAT POSITIVE (NEGATIVE); PROPOXYPHENE STAT NEGATIVE (NEGATIVE); TRICYCLIC ANTIDEPRESSANTS SCRE NEGATIVE (NEGATIVE)
[2018-02-05 16:49] LABS: ALANINE AMINOTRANSFERASE 8 U/L (0-55); ALBUMIN 4.2 GM/DL (3.2-4.5); ALKALINE PHOSPHATASE 48 U/L (40-136); BILIRUBIN,TOTAL 1.4 MG/DL (0.1-1.0); BUN/CREATININE RATIO 29; CALCIUM 9.8 MG/DL (8.5-10.1); CARBON DIOXIDE 22 MMOL/L (21-32); CHLORIDE 96 MMOL/L (98-107); CREATININE SERUM 0.55 MG/DL (0.60-1.30); GFR ESTIMATED > 60; GLUCOSE 96 MG/DL (70-105); LIPASE 10 U/L (8-78); POTASSIUM 3.1 MMOL/L (3.6-5.0); SODIUM 134 MMOL/L (135-145); TOTAL PROTEIN 6.9 GM/DL (6.4-8.2)
--- NOTE | 2018-02-05 17:09 | ED GI ---
General Chief Complaint: Abdominal/GI Problems Stated Complaint: VOMITING;4MO Nursing Triage Note: PT TO ROOM 9 PT CO OF NAUSEA AND VOMITING FOR 4 DAYS, PT HAS STOMACH PAIN, PT IS APPROX 4 MONTHS Sepsis Screen: No Definite Risk Source of Information: Patient (PHYLLIS JJ MD) History of Present Illness Date Seen by Provider: Feb 05, 2018 Time Seen by Provider: 17:04 Initial Comments The patient is a 22-year-old white female well-known to this ER. She had many visits through her teen years relative to intractable vomiting. This was almost always associated with a positive urine for cannabinoids. On December 09 she was here and found to be . This is the eighth visit including the December 09 and all of her drug screens have been positive. She reports that she has been vomiting repeatedly for the last 3 or 4 days. Severity/Quality: Moderate (PHYLLIS JJ MD) Allergies and Home Medications Allergies Coded Allergies: No Known Drug Allergies (Unverified , 01/12/16) Patient Home Medication List Home Medication List Reviewed: Yes (ERIKA LEWIS APRN) Review of Systems Constitutional: see HPI EENTM: No Symptoms Reported Respiratory: No Symptoms Reported Cardiovascular: No Symptoms Reported Gastrointestinal: Abdominal Pain, Nausea, Vomiting Genitourinary: No Symptoms Reported Musculoskeletal: no symptoms reported Skin: no symptoms reported Psychiatric/Neurological: Depressed Endocrine: No Symptoms Reported Hematologic/Lymphatic: No Symptoms Reported (PHYLLIS JJ MD) Past Cnzffgu-Khgnqe-Dfsawz Hx Patient Social History Alcohol Use: Denies Use Recreational Drug Use: Yes Drug of Choice: THC, FENTANYL, OXYCODONE Type Used: Cigarettes 2nd Hand Smoke Exposure: Yes Recent Foreign Travel: No Contact w/Someone Who Travel: No Recent Infectious Disease Expo: No Recent Hopitalizations: No Physical Abuse: No Sexual Abuse: No (PHYLLIS JJ MD) Immunizations Up To Date Tetanus Booster (TDap): Less than 5yrs PED Vaccines UTD: Yes Date of Pneumonia Vaccine: Nov 12, 2013 Date of Influenza Vaccine: Sep 11, 2015 (PHYLLIS JJ MD) Seasonal Allergies Seasonal Allergies: No (PHYLLIS JJ MD) Past Medical History Surgeries: Yes (LAPAROSCOPY-OVARIAN CYST, ENDOMETRIOSIS; EGD) Abdominal, Appendectomy, Gallbladder Respiratory: Yes Asthma, Pneumonia Currently Using CPAP: No Currently Using BIPAP: No Cardiac: No Neurological: No : Yes Reproductive Disorders: Yes (LT OVARIAN CYST) Female 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, Ovarian Cyst Sexually Transmitted Disease: No HIV/AIDS: No Genitourinary: No Gastrointestinal: Yes (CHRONIC ABDOMINAL PAIN, CHRONIC N/V, CANNABIS HYPEREMESIS SYNDROME) Musculoskeletal: No Endocrine: No HEENT: No Cancer: No Psychosocial: Yes ("CYCLIC VOMITING", marijuana abuse) Sleep Difficulties, Anxiety, Depression Nursing Suicide Risk Score: 0 Integumentary: No Blood Disorders: No Adverse Reaction/Blood Tranf: No (PHYLLIS JJ MD) Family Medical History Cancer GPA-DAD SIDE, Onset:Unknown Cataract GMA-DAD SIDE Dementia GPA-DAD SIDE Family history: Arthritis GPA-MOM SIDE Family history: Cardiovascular disease GMA-DAD SIDE (CAD STINTS) GMA-MOM SIDE (ENLARGED HEART DEFIBALATOR AND PACER) History of - respiratory disease GPA-DAD SIDE (EMPHYSEMA, COPD) No Family History of: AIDS Abdominal aortic aneurysm Abdominal aortic aneurysm Linden's disease Fidel's disease Alcoholism Alcoholism Alzheimer's disease Aphasia Aphasia Arthritis Asthma Cancer of colon Cancer of mouth Cardiovascular disease Cataracts Chest pain Colon cancer Completed stroke Congenital disease Congenital heart disease Congenital heart disease Congestive heart failure Coronary thrombosis Cystic fibrosis Cystic fibrosis Deafness or hearing loss Diabetes mellitus Drug abuse Dysphagia Dysphasia Family history: Allergy Family history: Alzheimer's disease Family history: Asthma Family history: Breast disease Family history: Coronary thrombosis Family history: Diabetes mellitus Family history: Gastrointestinal disease Family history: Glaucoma Family history: Hypertension Family history: Osteoporosis Family history: Thyroid disorder Fibrocystic disease of breast Gastroenteritis Glaucoma Headache Hearing loss Heart disease Hereditary disease History of - anemia History of - disorder History of drug abuse Human immunodeficiency virus (HIV) seropositivity Hypercholesterolemia Hypercholesterolemia Infertile Kidney disease Malignant neoplasm of lung Myocardial infarction Parkinson's disease Prostate cancer Psychotic disorder Seizure disorder Severe allergy Stroke Thyroid disease Tuberculosis Tuberculosis Visual disorder Visual impairment No Pertinent Family Hx (PHYLLIS JJ MD) Physical Exam Vital Signs Vital Signs - First Documented 02/05/18 16:00 Temp 97.6 Pulse 99 Resp 18 B/P (MAP) 105/62 (76) Pulse Ox 95 (ERIKA LEWIS APRN) Vital Signs Capillary Refill : Less Than 3 Seconds (PHYLLIS JJ MD) General Appearance: other (bent over from the hips with face to the bed and moaning I entered the room) HEENT: normal ENT inspection Neck: full range of motion Respiratory: chest non-tender, lungs clear, normal breath sounds, no respiratory distress, no accessory muscle use Cardiovascular: normal peripheral pulses, regular rate, rhythm, no edema, no gallop, no JVD, no murmur Gastrointestinal: abnormal bowel sounds Extremities: normal range of motion, non-tender, normal inspection, no pedal edema, no calf tenderness, normal capillary refill, pelvis stable Neurologic/Psychiatric: advanced manufacturing engineer II-XII nml as tested, no motor/sensory deficits, alert, normal mood/affect, oriented x 3 Lymphatic: no adenopathy (PHYLLIS JJ MD) Progress/Results/Core Measures Lab Results Laboratory Tests Test 02/05/18 16:10 02/05/18 16:19 Range/Units Urine Color YELLOW Urine Clarity CLEAR Urine pH 6 5-9 Urine Specific [place] 1.025 H 1.016-1.022 Urine Protein 2+ H NEGATIVE Urine Glucose (UA) NEGATIVE NEGATIVE Urine Ketones 4+ H NEGATIVE Urine Nitrite NEGATIVE NEGATIVE Urine Bilirubin NEGATIVE NEGATIVE Urine Urobilinogen 1 NORMAL MG/DL Urine Leukocyte Esterase 1+ H NEGATIVE Urine RBC (Auto) 2+ H NEGATIVE Urine RBC 5-10 H /HPF Urine WBC 2-5 /HPF Urine Squamous Epithelial Cells 5-10 /HPF Urine Crystals NONE /LPF Urine Bacteria FEW H /HPF Urine Casts NONE /LPF Urine Mucus LARGE H /LPF Urine Culture Indicated NO Urine Opiates Screen POSITIVE H NEGATIVE Urine Oxycodone Screen POSITIVE H NEGATIVE Urine Methadone Screen NEGATIVE NEGATIVE Urine Propoxyphene Screen NEGATIVE NEGATIVE Urine Barbiturates Screen NEGATIVE NEGATIVE Ur Tricyclic Antidepressants Screen NEGATIVE NEGATIVE Urine Phencyclidine Screen NEGATIVE NEGATIVE Urine Amphetamines Screen NEGATIVE NEGATIVE Urine Methamphetamines Screen NEGATIVE NEGATIVE Urine Benzodiazepines Screen NEGATIVE NEGATIVE Urine Cocaine Screen NEGATIVE NEGATIVE Urine Cannabinoids Screen POSITIVE H NEGATIVE Sodium Level 134 L 135-145 MMOL/L Potassium Level 3.1 L 3.6-5.0 MMOL/L Chloride Level 96 L 98-107 MMOL/L Carbon Dioxide Level 22 21-32 MMOL/L Anion Gap 16 H 5-14 MMOL/L Blood Urea Nitrogen 16 7-18 MG/DL Creatinine 0.55 L 0.60-1.30 MG/DL Estimat Glomerular Filtration Rate > 60 BUN/Creatinine Ratio 29 Glucose Level 96 70-105 MG/DL Calcium Level 9.8 8.5-10.1 MG/DL Total Bilirubin 1.4 H 0.1-1.0 MG/DL Aspartate Amino Transf (AST/SGOT) 13 5-34 U/L Alanine Aminotransferase (ALT/SGPT) 8 0-55 U/L Alkaline Phosphatase 48 40-136 U/L Total Protein 6.9 6.4-8.2 GM/DL Albumin 4.2 3.2-4.5 GM/DL Lipase 10 8-78 U/L (ERIKA LEWIS APRN) My Orders Orders - ERIKA LEWIS APRN Lipase (02/05/18 15:58) Comprehensive Metabolic Panel (02/05/18 15:58) Ua Culture If Indicated (02/05/18 15:58) Drug Screen Stat (Urine) (02/05/18 15:58) (ERIKA LEWIS APRN) Medications Given in ED Current Medications Medications Dose Ordered Sig/Dani Route Start Time Stop Time Status Last Admin Dose Admin Ondansetron HCl 8 mg ONCE ONCE IVP 02/05/18 17:15 02/05/18 17:16 DC 02/05/18 17:17 8 MG (ERIKA LEWIS APRN) Vital Signs/I&O 02/05/18 16:00 Temp 97.6 Pulse 99 Resp 18 B/P (MAP) 105/62 (76) Pulse Ox 95 (ERIKA LEWIS APRN) Blood Pressure Mean: 76 Departure Communication (Admissions) The patient and her mother were informed that she again was positive for oxycodone, opioids and cannabis. They stated that that could not be possible as she she stopped the use of these agents after being informed of her on December 09. (PHYLLIS JJ MD) 5159-Have taken over care from Dr Jj. T 162. IV fluids infusing. Will dc to home once infused. (ERIKA LEWIS APRN) Impression Primary Impression: Illicit drug use, continuous Additional Impression: Nausea and vomiting Disposition: HOME, SELF-CARE Condition: Stable Departure-Patient Inst. Decision time for Depature: 17:50 (ERIKA LEWIS APRN) Referrals: CASSY NI DO (PCP) Primary Care Physician Patient Instructions: No Instuctions Given Copy Copies To 1: CASSY NI DO; JULIO SAMUEL MD, RODNEY K MD Feb 05, 2018 17:08 ERIKA LEWIS APRN Feb 05, 2018 17:51
[2018-02-05] MEDS ORDERED: NS IV 1000 ML 1,000 ML IV SCH (17:15)
[2018-02-05] MEDS ORDERED: ONDANSETRON 4 MG/2 ML (SDV) Z0FRAN IVP ONE (17:15)
[2018-02-05 18:30] VITALS: BP 105/62
[2018-03-20] MEDS ORDERED: RANI150T46 PO (18:39)
[2018-03-20] MEDS ORDERED: ONDA8TAB9 SL (18:39)
== END 2018-02-05 18:30 | disposition home or self-care (01) ==
LOC: ER 15:56
DX: O99.322 Drug use complicating pregnancy, second trimester (principal); F12.10 Cannabis abuse, uncomplicated; O21.9 Vomiting of pregnancy, unspecified; O99.512 Diseases of the respiratory system complicating pregnancy, second trimester; J45.909 Unspecified asthma, uncomplicated; O99.342 Other mental disorders complicating pregnancy, second trimester; F41.9 Anxiety disorder, unspecified; F32.9 Major depressive disorder, single episode, unspecified; Z87.01 Personal history of pneumonia (recurrent); Z77.22 Contact with and (suspected) exposure to environmental tobacco smoke (acute) (chronic); Z87.448 Personal history of other diseases of urinary system; Z82.49 Family history of ischemic heart disease and other diseases of the circulatory system; Z3A.00 Weeks of gestation of pregnancy not specified
CPT/HCPCS: 36415; 80053; 80306; 81000; 83690; 96361; 96374

== ENCOUNTER → 2018-03-09 | Outpatient (CLI) | payer MEDICAID ==
[~2018-03-09] MED LIST changes: +ONDA8TAB9 SL; +PREN-53 PO; +RANI150T46 PO
--- NOTE | 2018-03-09 15:18 | Diagnostic Imaging Report ---
INDICATION: survey. TECHNIQUE: Multiple real-time grayscale images were obtained over the gravid uterus. COMPARISON: 01/28/2018. FINDINGS: There is a single live fetus in a variable presentation. The placenta is posterior. The amniotic fluid volume is normal. heart rate was recorded at 135 beats per minute. survey demonstrates kidneys, bladder and stomach to be unremarkable. The brain is unremarkable. There is a four-chamber heart. There is a three-vessel cord with normal insertion. spine is unremarkable. Biometrical measurements are as follows: Biparietal 4.3 cm, age 19 weeks 1 days. Head circumference 15.8 cm, age 18 weeks 5 days. Abdominal circumference 12.68 cm, age 18 weeks 2 days. Femur length 2.47 cm, age 17 weeks 4 days. Sonographic estimate age: 18 weeks 3 days. Sonographic estimated date of delivery: 08/07/2018. Estimated Weight: 219 gm (+/- 32 gm). LMP percentile: 9%. heart rate: 135 beats per minute. number: 1 of 1. IMPRESSION: Single live IUP approximately 18 weeks 3 days gestational age. This shows normal interval growth when compared with prior study from 01/28/2018. No complicating features are detected. Dictated by: Dictated on workstation # [id number]
== END ==
LOC: RAD 13:18
PROVIDERS: ATTEND Obstetrics & Gynecology
DX: Z36.89 Encounter for other specified antenatal screening (principal); Z3A.18 18 weeks gestation of pregnancy
CPT/HCPCS: 76805

== ENCOUNTER 2018-03-20 15:06 | Outpatient (CLI) | payer MEDICAID ==
[~2018-03-20] VITALS: Ht 154.9 cm; Wt 45.0 kg
[~2018-03-20 15:06] MED LIST changes: -ONDA8TAB9 SL; -PREN-53 PO; -RANI150T46 PO
[2018-03-20] MEDS ORDERED: D5 LR IV SOLUTION 1,000 ML IV ONE (15:20)
[2018-03-20] MEDS ORDERED: ONDANSETRON 4 MG/2 ML (SDV) Z0FRAN ONE ×2 (15:20→18:26)
[2018-03-20] MEDS ORDERED: PREN-53 PO (15:28)
[2018-03-20] MEDS ORDERED: D5 LR IV SOLUTION 1,000 ML IV SCH ×2 (15:30→17:30)
[2018-03-20] MEDS ORDERED: ONDANSETRON 4 MG/2 ML (SDV) Z0FRAN IVP ONE ×2 (15:30→18:30)
[2018-03-20 15:51] VITALS: BP 99/61
[2018-03-20 15:54] LABS: BILIRUBIN,URINE NEGATIVE (NEGATIVE); CLARITY,URINE SLIGHTLY CLOUDY; COLOR,URINE YELLOW; GLUCOSE, URINE (UA) NEGATIVE (NEGATIVE); KETONES,URINE 4+ (NEGATIVE); LEUKOCYTE ESTERASE ,URINE NEGATIVE (NEGATIVE); NITRITE,URINE NEGATIVE (NEGATIVE); PH,URINE 6 (5-9); PROTEIN,URINE 1+ (NEGATIVE); UROBILINOGEN,URINE NORMAL (NORMAL)
[2018-03-20 15:55] LABS: BASOPHILS % (AUTO) 0 % (0-10); EOSINOPHILS # (AUTO) 0.1 10^3/uL (0.0-0.3); EOSINOPHILS % (AUTO) 0 % (0-10); HEMATOCRIT 38 % (35-52); HEMOGLOBIN 14.1 G/DL (11.5-16.0); LYMPHOCYTES % (AUTO) 17 % (12-44); MEAN CORPUSCULAR HEMOGLOBIN 34 PG (25-34); MEAN CORPUSCULAR HGB CONC 37 G/DL (32-36); MEAN CORPUSCULAR VOLUME 90 FL (80-99); MEAN PLATELET VOLUME 9.4 FL (7.4-10.4); MONOCYTES # (AUTO) 0.7 X 10^3 (0.0-1.0); MONOCYTES % (AUTO) 6 % (0-12); NEUTROPHILS # (AUTO) 8.9 X 10^3 (1.8-7.8); NEUTROPHILS % (AUTO) 76 % (42-75); PLATELET COUNT 333 10^3/uL (130-400); RED BLOOD COUNT 4.19 10^6/uL (4.35-5.85); RED CELL DISTRIBUTION WIDTH 12.5 % (10.0-14.5); WHITE BLOOD COUNT 11.7 10^3/uL (4.3-11.0)
[2018-03-20 16:11] LABS: ALANINE AMINOTRANSFERASE 27 U/L (0-55); ALBUMIN 3.9 GM/DL (3.2-4.5); ALKALINE PHOSPHATASE 62 U/L (40-136); BILIRUBIN,TOTAL 1.1 MG/DL (0.1-1.0); BUN/CREATININE RATIO 16; CARBON DIOXIDE 15 MMOL/L (21-32); CHLORIDE 98 MMOL/L (98-107); CREATININE SERUM 0.55 MG/DL (0.60-1.30); GFR ESTIMATED > 60; GLUCOSE 64 MG/DL (70-105); POTASSIUM 3.2 MMOL/L (3.6-5.0); SODIUM 130 MMOL/L (135-145); TOTAL PROTEIN 6.9 GM/DL (6.4-8.2)
[2018-03-20 16:12] LABS: BACTERIA,URINE NEGATIVE /HPF
[2018-03-20] MEDS ORDERED: methylPREDNISolone 40 MG/ML (Solu-MEDROL) VIAL IV ONE (17:00)
[2018-03-20 17:23] LABS: BENZODIAZEPINES SCREEN URINE POSITIVE (NEGATIVE)
[2018-03-20 17:24] LABS: AMPHETAMINE SCREEN, URINE NEGATIVE (NEGATIVE); BARBITURATE SCREEN URINE NEGATIVE (NEGATIVE); CANNABINOID SCREEN, URINE NEGATIVE (NEGATIVE); COCAINE SCREEN URINE NEGATIVE (NEGATIVE); METHADONE STAT NEGATIVE (NEGATIVE); METHAMPHETAMINE SCREEN URINE S NEGATIVE (NEGATIVE); OPIATE SCREEN URINE POSITIVE (NEGATIVE); OXYCODONE STAT NEGATIVE (NEGATIVE); PROPOXYPHENE STAT NEGATIVE (NEGATIVE); TRICYCLIC ANTIDEPRESSANTS SCRE NEGATIVE (NEGATIVE)
[2018-03-20] MEDS ORDERED: ONDA8TAB9 SL (18:39)
[2018-03-20] MEDS ORDERED: RANI150T46 PO (18:39)
--- NOTE | 2018-03-20 18:41 | Discharge Instructions ---
Discharge Instructions Discharge Medications New, Converted or Re-Newed RX: RX on Chart Patient Instructions Patient Instructions: As directed Return to The Hospital For: As directed Activity & Diet Discharge Diet: No Restrictions Activity as Tolerated: Yes Orders-Post D/C & Referrals Follow with Dr. Talamantes per his instructions Please call in rx to patient pharmacy DONNA ABDULLAHI MD Mar 20, 2018 6:41 pm
--- NOTE | 2018-03-20 18:50 | History & Physical ---
History and Physical Date Seen by Provider: Mar 20, 2018 Time Seen by Provider: 18:42 This patient is a 22-year-old 1 white female currently at 20+ weeks gestation. She presented with complaints of abdominal/diffuse pain unrelenting nausea and vomiting and decreased movement. Her history is significant for multiple and frequent hospitalizations for pain nausea and vomiting. She reports that these symptoms started as early as 15 years ago when she was 7 years old. She reports that she has had extensive workups locally and at and at [facility] with no definitive diagnosis and no improvement in her symptoms. She reports that she takes only vitamins. It is of note that her urine drug screen was positive for benzodiazepines and opioids. She admitted to having guarding and Xanax from someone outside medical profession and took it because she could not sleep. Denies use of opioids she denies rupture membranes or bleeding. She states that her symptoms are essentially unchanged during the period of evaluation hydration and medication the hospital she feels that her nausea might be a low bit better after the Zofran Allergies are none Medications that she admits to his vitamins Past medical history, past surgical history, staging history, family history, and social histories are present record HEENT exam is normal Neck is supple no lymphadenopathy no thyromegaly Abdomen is gravid there is fairly notable midepigastric tenderness on palpation , there is no guarding rebound or rigidity Extremities show no clubbing cyanosis. There is no Homans sign. Pelvic exam is deferred Lab work is as followsLaboratory Tests 03/20/18 15:30 The hemoglobin is elevated at 14.1 which would be consistent with some degree of dehydration electrolytes are in the ranges that would be expected for Laboratory Tests Test 03/20/18 15:30 03/20/18 15:45 03/20/18 16:58 Range/Units White Blood Count 11.7 H 4.3-11.0 10^3/uL Red Blood Count 4.19 L 4.35-5.85 10^6/uL Hemoglobin 14.1 11.5-16.0 G/DL Hematocrit 38 35-52 % Mean Corpuscular Volume 90 80-99 FL Mean Corpuscular Hemoglobin 34 25-34 PG Mean Corpuscular Hemoglobin Concent 37 H 32-36 G/DL Red Cell Distribution Width 12.5 10.0-14.5 % Platelet Count 333 130-400 10^3/uL Mean Platelet Volume 9.4 7.4-10.4 FL Neutrophils (%) (Auto) 76 H 42-75 % Lymphocytes (%) (Auto) 17 12-44 % Monocytes (%) (Auto) 6 0-12 % Eosinophils (%) (Auto) 0 0-10 % Basophils (%) (Auto) 0 0-10 % Neutrophils # (Auto) 8.9 H 1.8-7.8 X 10^3 Lymphocytes # (Auto) 2.0 1.0-4.0 X 10^3 Monocytes # (Auto) 0.7 0.0-1.0 X 10^3 Eosinophils # (Auto) 0.1 0.0-0.3 10^3/uL Basophils # (Auto) 0.0 0.0-0.1 10^3/uL Sodium Level 130 L 135-145 MMOL/L Potassium Level 3.2 L 3.6-5.0 MMOL/L Chloride Level 98 98-107 MMOL/L Carbon Dioxide Level 15 L 21-32 MMOL/L Anion Gap 17 H 5-14 MMOL/L Blood Urea Nitrogen 9 7-18 MG/DL Creatinine 0.55 L 0.60-1.30 MG/DL Estimat Glomerular Filtration Rate > 60 BUN/Creatinine Ratio 16 Glucose Level 64 L 70-105 MG/DL Calcium Level 9.0 8.5-10.1 MG/DL Total Bilirubin 1.1 H 0.1-1.0 MG/DL Aspartate Amino Transf (AST/SGOT) 26 5-34 U/L Alanine Aminotransferase (ALT/SGPT) 27 0-55 U/L Alkaline Phosphatase 62 40-136 U/L Total Protein 6.9 6.4-8.2 GM/DL Albumin 3.9 3.2-4.5 GM/DL Urine Color YELLOW Urine Clarity SLIGHTLY CLOUDY Urine pH 6 5-9 Urine Specific [place] 1.025 H 1.016-1.022 Urine Protein 1+ H NEGATIVE Urine Glucose (UA) NEGATIVE NEGATIVE Urine Ketones 4+ H NEGATIVE Urine Nitrite NEGATIVE NEGATIVE Urine Bilirubin NEGATIVE NEGATIVE Urine Urobilinogen NORMAL NORMAL MG/DL Urine Leukocyte Esterase NEGATIVE NEGATIVE Urine RBC (Auto) NEGATIVE NEGATIVE Urine RBC NONE /HPF Urine WBC NONE /HPF Urine Squamous Epithelial Cells 2-5 /HPF Urine Renal Epithelial Cells NONE /HPF Urine Crystals NONE /LPF Urine Bacteria NEGATIVE /HPF Urine Casts NONE /LPF Urine Mucus NEGATIVE /LPF Urine Culture Indicated NO Urine Opiates Screen POSITIVE H NEGATIVE Urine Oxycodone Screen NEGATIVE NEGATIVE Urine Methadone Screen NEGATIVE NEGATIVE Urine Propoxyphene Screen NEGATIVE NEGATIVE Urine Barbiturates Screen NEGATIVE NEGATIVE Ur Tricyclic Antidepressants Screen NEGATIVE NEGATIVE Urine Phencyclidine Screen NEGATIVE NEGATIVE Urine Amphetamines Screen NEGATIVE NEGATIVE Urine Methamphetamines Screen NEGATIVE NEGATIVE Urine Benzodiazepines Screen POSITIVE H NEGATIVE Urine Cocaine Screen NEGATIVE NEGATIVE Urine Cannabinoids Screen NEGATIVE NEGATIVE Vital Signs Date Time Temp Pulse Resp B/P (MAP) Pulse Ox O2 Delivery O2 Flow Rate FiO2 03/20/18 15:51 97.1 69 18 99/61 (74) 98 Room Air Assessment and plan chronic hyperemesis probably exacerbated somewhat by her . She obviously has chronic pain and nausea issues. She indicates that she has had extensive workup in the past with no definitive diagnosis and no improvement in her symptoms. At this point we will continue symptomatic supportive care. She has been hydrated and we've given her antiemetics. We will allow her discharge home with prescription for Zofran ODT. In addition her exam concerning for possibility of some degree of GERD we'll start her on Zantac as well. She is to follow up with Dr. Talamantes as per his instructions I have suggested that she call his office next week for recommendations on management. Chronic hyperemesis Allergies and Home Medications Allergies Coded Allergies: No Known Drug Allergies (Unverified , 01/12/16) Home Medications Ondansetron 8 Mg Tab.rapdis, 8 MG SL Q4H PRN for NAUSEA/VOMITING-1ST LINE Prescribed by: DONNA LYNN on 03/20/181838 Zsx437/Iron Fumarate/FA/Dss 1 Each Tablet, 1 EACH PO DAILY, (Reported) Ranitidine HCl 150 Mg Tablet, 150 MG PO BID Prescribed by: DONNA LYNN on 03/20/181838 Patient Home Medication List Home Medication List Reviewed: Yes DONNA ABDULLAHI MD Mar 20, 2018 6:50 pm
== END 2018-03-20 19:38 | disposition home or self-care (01) ==
LOC: LDRP 15:06 → WSo 15:06 → LDRP 17:05 → WSo 19:38
PROVIDERS: ATTEND Obstetrics & Gynecology
DX: O21.0 Mild hyperemesis gravidarum (principal); Z3A.20 20 weeks gestation of pregnancy
CPT/HCPCS: 36415; 80053; 80306; 81000; 85025; 96361; 96374; 96375; 96376; 99214

== ENCOUNTER 2018-05-09 11:40 | Outpatient (CLI) | payer MEDICAID ==
[~2018-05-09] VITALS: Ht 154.9 cm; Wt 50.4 kg
[~2018-05-09 11:40] MED LIST changes: +ONDA8TAB9 SL; +PREN-53 PO; +RANI150T46 PO
[2018-05-09 11:48] VITALS: BP 107/76
[2018-05-09 11:55] VITALS: BP 107/76
[2018-05-09 12:40] LABS: BASOPHILS % (AUTO) 0 % (0-10); EOSINOPHILS % (AUTO) 0 % (0-10); HEMATOCRIT 34 % (35-52); HEMOGLOBIN 11.8 G/DL (11.5-16.0); LYMPHOCYTES # (AUTO) 1.5 X 10^3 (1.0-4.0); LYMPHOCYTES % (AUTO) 13 % (12-44); MEAN CORPUSCULAR HEMOGLOBIN 33 PG (25-34); MEAN CORPUSCULAR HGB CONC 35 G/DL (32-36); MEAN CORPUSCULAR VOLUME 93 FL (80-99); MEAN PLATELET VOLUME 9.2 FL (7.4-10.4); MONOCYTES # (AUTO) 0.5 X 10^3 (0.0-1.0); MONOCYTES % (AUTO) 4 % (0-12); NEUTROPHILS # (AUTO) 9.4 X 10^3 (1.8-7.8); NEUTROPHILS % (AUTO) 82 % (42-75); PLATELET COUNT 279 10^3/uL (130-400); RED BLOOD COUNT 3.63 10^6/uL (4.35-5.85); RED CELL DISTRIBUTION WIDTH 12.8 % (10.0-14.5); WHITE BLOOD COUNT 11.4 10^3/uL (4.3-11.0)
[2018-05-09 12:57] LABS: ALANINE AMINOTRANSFERASE 8 U/L (0-55); ALBUMIN 3.3 GM/DL (3.2-4.5); ALKALINE PHOSPHATASE 64 U/L (40-136); BILIRUBIN,TOTAL 0.6 MG/DL (0.1-1.0); BUN/CREATININE RATIO 14; CALCIUM 8.7 MG/DL (8.5-10.1); CARBON DIOXIDE 20 MMOL/L (21-32); CHLORIDE 108 MMOL/L (98-107); CREATININE SERUM 0.49 MG/DL (0.60-1.30); GFR ESTIMATED > 60; GLUCOSE 81 MG/DL (70-105); POTASSIUM 3.4 MMOL/L (3.6-5.0); SODIUM 138 MMOL/L (135-145); TOTAL PROTEIN 5.9 GM/DL (6.4-8.2)
[2018-05-09 12:57] LABS: BILIRUBIN,URINE NEGATIVE (NEGATIVE); CLARITY,URINE SLIGHTLY CLOUDY; COLOR,URINE YELLOW; GLUCOSE, URINE (UA) NEGATIVE (NEGATIVE); KETONES,URINE 4+ (NEGATIVE); LEUKOCYTE ESTERASE ,URINE 1+ (NEGATIVE); NITRITE,URINE NEGATIVE (NEGATIVE); PH,URINE 7 (5-9); PROTEIN,URINE 2+ (NEGATIVE); UROBILINOGEN,URINE 1 MG/DL (NORMAL)
[2018-05-09 13:06] LABS: AMPHETAMINE SCREEN, URINE NEGATIVE (NEGATIVE); BACTERIA,URINE NEGATIVE /HPF; BARBITURATE SCREEN URINE NEGATIVE (NEGATIVE); BENZODIAZEPINES SCREEN URINE NEGATIVE (NEGATIVE); CANNABINOID SCREEN, URINE POSITIVE (NEGATIVE); COCAINE SCREEN URINE NEGATIVE (NEGATIVE); METHADONE STAT NEGATIVE (NEGATIVE); METHAMPHETAMINE SCREEN URINE S NEGATIVE (NEGATIVE); OPIATE SCREEN URINE NEGATIVE (NEGATIVE); OXYCODONE STAT POSITIVE (NEGATIVE); PROPOXYPHENE STAT NEGATIVE (NEGATIVE); SQUAMOUS EPITHELIAL CELL,UR RARE /HPF; TRICYCLIC ANTIDEPRESSANTS SCRE NEGATIVE (NEGATIVE); WBC,URINE RARE /HPF
[2018-05-09] MEDS ORDERED: PNV11TAB5 PO (13:17)
--- NOTE | 2018-05-10 21:06 | Physician Query-Final Dx ---
ANNA GAINES 05/10/18 2106: Clinic Account Progress/Dx Physician Query: Please give diagnosis Date of Service May 09, 2018 at 11:40 DONNA ABDULLAHI MD 05/12/18 1222: Clinic Account Progress/Dx DIAGNOSIS: Diagnosis False labor ANNA GAINES May 10, 2018 21:06 DONNA ABDULLAHI MD May 12, 2018 12:22
== END 2018-05-09 13:26 | disposition home or self-care (01) ==
LOC: LDRP 11:40 → WSo 11:40
PROVIDERS: ATTEND Obstetrics & Gynecology
DX: O47.02 False labor before 37 completed weeks of gestation, second trimester (principal); Z3A.27 27 weeks gestation of pregnancy
CPT/HCPCS: 36415; 80053; 80306; 81000; 82570; 84156; 85025; 99213

== ENCOUNTER 2018-06-08 10:59 | Outpatient (CLI) | payer MEDICAID ==
[~2018-06-08] VITALS: Ht 154.9 cm; Wt 50.4 kg
[~2018-06-08 10:59] MED LIST changes: -BENZ-13 PO; +BENZ100C18 PO; +HYDR-4226 PO; -HYDR-757 PO; +PNV11TAB5 PO
[2018-06-08 11:10] VITALS: BP 111/67
[2018-06-08] MEDS ORDERED: LACTATED RINGERS 1,000 ML IV SCH (12:00)
[2018-06-08 12:10] LABS: BASOPHILS % (AUTO) 0 % (0-10); EOSINOPHILS % (AUTO) 0 % (0-10); HEMATOCRIT 31 % (35-52); HEMOGLOBIN 11.1 G/DL (11.5-16.0); LYMPHOCYTES # (AUTO) 1.8 X 10^3 (1.0-4.0); LYMPHOCYTES % (AUTO) 15 % (12-44); MEAN CORPUSCULAR HEMOGLOBIN 33 PG (25-34); MEAN CORPUSCULAR HGB CONC 36 G/DL (32-36); MEAN CORPUSCULAR VOLUME 92 FL (80-99); MEAN PLATELET VOLUME 9.4 FL (7.4-10.4); MONOCYTES # (AUTO) 0.7 X 10^3 (0.0-1.0); MONOCYTES % (AUTO) 6 % (0-12); NEUTROPHILS # (AUTO) 9.2 X 10^3 (1.8-7.8); NEUTROPHILS % (AUTO) 79 % (42-75); PLATELET COUNT 256 10^3/uL (130-400); RED BLOOD COUNT 3.39 10^6/uL (4.35-5.85); RED CELL DISTRIBUTION WIDTH 12.8 % (10.0-14.5); WHITE BLOOD COUNT 11.6 10^3/uL (4.3-11.0)
[2018-06-08 12:32] LABS: ALANINE AMINOTRANSFERASE 9 U/L (0-55); ALBUMIN 3.4 GM/DL (3.2-4.5); ALKALINE PHOSPHATASE 91 U/L (40-136); BILIRUBIN,TOTAL 0.8 MG/DL (0.1-1.0); BUN/CREATININE RATIO 20; CALCIUM 8.6 MG/DL (8.5-10.1); CARBON DIOXIDE 18 MMOL/L (21-32); CHLORIDE 102 MMOL/L (98-107); CREATININE SERUM 0.51 MG/DL (0.60-1.30); GFR ESTIMATED > 60; GLUCOSE 82 MG/DL (70-105); POTASSIUM 3.2 MMOL/L (3.6-5.0); SODIUM 134 MMOL/L (135-145)
[2018-06-08 13:31] LABS: BILIRUBIN,URINE NEGATIVE (NEGATIVE); CLARITY,URINE CLEAR; COLOR,URINE YELLOW; GLUCOSE, URINE (UA) NEGATIVE (NEGATIVE); KETONES,URINE 4+ (NEGATIVE); LEUKOCYTE ESTERASE ,URINE 1+ (NEGATIVE); NITRITE,URINE NEGATIVE (NEGATIVE); PH,URINE 6 (5-9); PROTEIN,URINE 2+ (NEGATIVE); UROBILINOGEN,URINE 1 MG/DL (NORMAL)
[2018-06-08 13:42] LABS: BACTERIA,URINE FEW /HPF
[2018-06-08] MEDS ORDERED: PROMETHAZINE INJ 25 MG/ML (PHENERGAN) AMP IVP ONE (14:30)
[2018-06-08] MEDS: POTASSIUM CL 10MEQ/50ML IVPB 50 ML IV SCH ×4 (15:25→18:35)
[2018-06-08] MEDS ORDERED: ONDANSETRON 4 MG/2 ML (SDV) Z0FRAN IVP ONE (17:30)
[2018-06-08] MEDS ORDERED: PROM25SU44 RC (19:40)
[2018-06-08 19:55] VITALS: BP 111/67
[2018-06-10] MEDS ORDERED: HYDR-4226 PO (12:36)
--- NOTE | 2018-06-10 20:57 | Physician Query-Final Dx ---
ANNA GAINES 06/10/182056: Clinic Account Progress/Dx Physician Query: Please give diagnosis Please provide diagnosis and weeks of gestation. Date of Service Jun 08, 2018 at 10:59 GRIFFIN MARTIN DO 06/24/18 0817: Clinic Account Progress/Dx DIAGNOSIS: Diagnosis abdominal pain and vomiting in ANNA GAINES Jun 10, 2018 20:57 GRIFFIN MARTIN DO Jun 24, 2018 08:17
== END 2018-06-08 19:55 | disposition home or self-care (01) ==
LOC: WSo 10:59 → LDRP 11:00 → WSo 19:55
PROVIDERS: ATTEND Obstetrics & Gynecology
DX: O21.9 Vomiting of pregnancy, unspecified (principal); R10.9 Unspecified abdominal pain; Z3A.00 Weeks of gestation of pregnancy not specified
CPT/HCPCS: 36415; 80053; 81000; 85025; 96361; 96374; 96375; 96376; 99213

== ENCOUNTER 2018-06-27 10:20 | Outpatient (CLI) | payer SELFPAY ==
[~2018-06-27] VITALS: Ht 154.9 cm; Wt 52.7 kg
[~2018-06-27 10:20] MED LIST changes: +PROM25SU44 RC
[2018-06-27 10:35] VITALS: BP 118/69
[2018-06-27 11:40] VITALS: BP 118/69
== END 2018-06-27 11:40 | disposition home or self-care (01) ==
LOC: WSo 10:20 → LDRP 10:21 → WSo 11:40
PROVIDERS: ATTEND Obstetrics & Gynecology
DX: O21.2 Late vomiting of pregnancy (principal); Z3A.34 34 weeks gestation of pregnancy
CPT/HCPCS: 99213

== ENCOUNTER 2018-07-18 11:08 | Outpatient (CLI) | payer MEDICAID ==
[~2018-07-18] VITALS: Ht 154.9 cm; Wt 52.6 kg
[2018-07-18 11:35] LABS: BILIRUBIN,URINE NEGATIVE (NEGATIVE); CLARITY,URINE SLIGHTLY CLOUDY; COLOR,URINE YELLOW; GLUCOSE, URINE (UA) NEGATIVE (NEGATIVE); KETONES,URINE NEGATIVE (NEGATIVE); LEUKOCYTE ESTERASE ,URINE 1+ (NEGATIVE); NITRITE,URINE NEGATIVE (NEGATIVE); PH,URINE 7 (5-9); PROTEIN,URINE 1+ (NEGATIVE); UROBILINOGEN,URINE NORMAL (NORMAL)
[2018-07-18 11:42] LABS: BACTERIA,URINE TRACE /HPF; SQUAMOUS EPITHELIAL CELL,UR >50 /HPF; WBC,URINE 0-2 /HPF
[2018-07-18 12:00] LABS: AMPHETAMINE SCREEN, URINE NEGATIVE (NEGATIVE); BENZODIAZEPINES SCREEN URINE NEGATIVE (NEGATIVE); COCAINE SCREEN URINE NEGATIVE (NEGATIVE); METHAMPHETAMINE SCREEN URINE S NEGATIVE (NEGATIVE)
[2018-07-18] MEDS ORDERED: HYDROcodone/APAP 10 MG/325 MG (LORTAB) TAB PO ONE (12:00)
[2018-07-18 12:01] LABS: BARBITURATE SCREEN URINE NEGATIVE (NEGATIVE); CANNABINOID SCREEN, URINE POSITIVE (NEGATIVE); METHADONE STAT NEGATIVE (NEGATIVE); OPIATE SCREEN URINE POSITIVE (NEGATIVE); OXYCODONE STAT POSITIVE (NEGATIVE); PROPOXYPHENE STAT NEGATIVE (NEGATIVE); TRICYCLIC ANTIDEPRESSANTS SCRE NEGATIVE (NEGATIVE)
[2018-07-18] MEDS ORDERED: FLU QUADRIvalent (5+ YOA) 2018-2019 (AFLURIA) 0.5 ML IM ONE (16:15)
--- NOTE | 2018-07-20 13:50 | Physician Query-Final Dx ---
ANNA GAINES 07/20/18 1350: Clinic Account Progress/Dx Physician Query: Please give diagnosis Please provide diagnosis and weeks of gestation. Date of Service Jul 18, 2018 at 11:08 GRIFFIN MARTIN DO 07/28/18 1323: Clinic Account Progress/Dx DIAGNOSIS: Diagnosis: (1) 37 weeks gestation of (2) INTRACTABLE ABDOMINAL PAIN (3) Cyclical vomiting syndrome Qualifiers: Qualified Codes: G43.A0 - Cyclical vomiting, not intractable Diagnosis see above ANNA GAINES Jul 20, 2018 13:50 GRIFFIN MARTIN DO Jul 28, 2018 13:23
[2018-07-22] MEDS ORDERED: FERR325T18 PO (08:07)
[2018-07-22] MEDS ORDERED: IBUP-844 PO (08:07)
[2018-07-22] MEDS ORDERED: ACHD5005 PO (08:07)
[2018-07-22] MEDS ORDERED: DOCU100C37 PO (08:07)
== END 2018-07-18 12:15 | disposition home or self-care (01) ==
LOC: WSo 11:08 → LDRP 11:10 → WSo 12:15
PROVIDERS: ATTEND Obstetrics & Gynecology
DX: O99.353 Diseases of the nervous system complicating pregnancy, third trimester (principal); G43.A0 Cyclical vomiting, in migraine, not intractable; Z3A.37 37 weeks gestation of pregnancy
CPT/HCPCS: 80306; 81000; 99212

== ENCOUNTER 2018-07-20 12:45 | Inpatient (IN) | payer MEDICAID ==
[2018-07-20] VITALS (18 sets, daily range): BP systolic 82–134; BP diastolic 46–92
[~2018-07-20] VITALS: Ht 154.9 cm; Wt 53.1 kg
--- OUTSIDE RECORDS SUMMARY | 2018-07-20 12:59 | XMS REPORT | Clinical Summary ---
Author Author [facility] Organization [facility] Address Unknown Phone Unavailable Care Team Providers Care Mail Caller Name Role Phone Emergency, Nurse RN Unavailable Unavailable Reza Pillai MD PCP April Faust MD Unavailable Armida Trevino RN Unavailable Unavailable Jessy Love DO Unavailable Emil Overton MD Unavailable Source Comments Some departments are not documenting in the electronic medical record. If you do not see the information that you expected, contact Release of Information in the Health Information Management department at [phone] for further assistance in locating additional records.[facility] Allergies No Known Allergies Current Medications [...] vomiting syndrome 09/26/2015 Overview: Initial diagnosis in [id number] at [facility] Intractable nausea and vomiting 04/28/2015 Hyponatremia [...] Taken Blood Pressure 135/87 09/26/2015 1:02 PM [employer]ISTOR [employer] Pulse 106 09/26/2015 1:02 PM [employer] Temperature 36.3 C (97.3 F) 09/26/2015 1:02 PM [employer] Respiratory Rate 16 09/26/2015 1:02 PM [employer] Oxygen Saturation 98% 05/01/2015 11:59 AM CDT Inhaled Oxygen - - Concentration Weight 54.4 kg (120 lb) 09/26/2015 1:02 PM [employer] Height 157.5 cm (5' 2") 09/26/2015 1:02 PM [employer] Body Mass Index 21.95 09/26/2015 1:02 PM [employer] Plan of Treatment Health Maintenance Due Date Last Done Comments PHYSICAL (COMPREHENSIVE) 2003 EXAM HPV VACCINES (1 of 3 - 2007 Female 3-dose series) PERTUSSIS VACCINE 2007 HIV SCREENING 2011 TETANUS VACCINE 2013 CERVICAL CANCER SCREENING 2017 INFLUENZA VACCINE 05/12/2018 Results Not on filefrom Last 3 Months
[2018-07-20 13:11] LABS: BILIRUBIN,URINE NEGATIVE (NEGATIVE); CLARITY,URINE CLEAR; COLOR,URINE YELLOW; GLUCOSE, URINE (UA) NEGATIVE (NEGATIVE); KETONES,URINE NEGATIVE (NEGATIVE); LEUKOCYTE ESTERASE ,URINE NEGATIVE (NEGATIVE); NITRITE,URINE NEGATIVE (NEGATIVE); PH,URINE 8 (5-9); PROTEIN,URINE NEGATIVE (NEGATIVE); UROBILINOGEN,URINE NORMAL (NORMAL)
--- OUTSIDE RECORDS SUMMARY | 2018-07-20 13:16 | XMS REPORT | Continuity of Care Document ---
Author Author [facility] Address Unknown Phone Unavailable Allergies Active Description Code Type Severity Reaction Onset Reported/Identified Relationship to Patient Clinical Status Yes narcotic analgesic Drug Allergy 05/30/2010 Yes No Known Drug Allergies [id number] Drug Allergy Unknown N/A 01/12/2016 Medications There [...] APRN S 845.00 ANKLE SPRAIN LEFT 12/05/2008 ALPHONSE ARDON MD N 845.00 ANKLE SPRAIN LEFT 12/05/2008 CAYDEN [...] Establ. 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 Patient [...] ESTABL. 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 PATIENT [...] FELICITY A 493.90 ASTHMA EXERCISE-INDUCED 05/29/2009 JOYCELYN EMISSION SPECIALIST, FELICITY A 724.2 LOWER BACK PAIN 05/29/2009 [...] JEAN 372.00 ACUTE CONJUNCTIVITIS, UNSPECIFIED 03/19/2010 ELISSA EMISSION SPECIALIST, LENCHO S 132.0 PEDICULUS CAPITIS [HEAD LOUSE] [...] S 300.4 MO DYSTHYMIC DISORDER 04/01/2011 ALPHONSE ARODN MD 300.4 MO DYSTHYMIC DISORDER 04/01/2011 CAYDEN [...] MD 845.03 SPRAIN LAT ANKLE 12/17/2011 JEAN NYOOLA MD 845.03 SPRAIN LAT ANKLE 12/17/2011 LENCHO [...] V25.02 CONTRACEPTION - ANY METHOD 05/10/2012 DENNYS RDEMAN, JEAN V65.45 STD COUNSELING 05/10/2012 DENNYS REDMAN, [...] V25.02 CONTRACEPTION - ANY METHOD 05/10/2012 FERNANDO BOWESR APRNA S V65.45 STD COUNSELING 05/10/2012 FERNANDO [...] REDMAN, JEAN 462 PHARYNGITIS ACUTE 11/05/2012 RAJYANET EMISSION SPECIALIST, FELICITY A 462 PHARYNGITIS ACUTE 11/11/2012 786.2 [...] ALLERGIC RHINITIS DUE TO POLLEN 05/12/2013 RAJOTTE EMISSION SPECIALIST, FELICITY A 477.0 ALLERGIC RHINITIS DUE TO POLLEN 05/12/2013 JEAN NOYOLA MD 477.0 ALLERGIC RHINITIS DUE TO POLLEN 05/12/2013 RAJOTTE EMISSION SPECIALIST, FELICITY A 477.0 ALLERGIC RHINITIS DUE TO [...] CAYDEN K 787.02 NAUSEA ALONE 07/14/2013 RAJOTTE EMISSION SPECIALIST, FELICITY A 729.1 MYALGIA AND MYOSITIS UNSPECIFIED 07/14/2013 RAJOTTE EMISSION SPECIALIST, FELICITY A 787.02 NAUSEA ALONE 07/14/2013 DENNYS REDMAN, JEAN 729.1 MYALGIA AND MYOSITIS UNSPECIFIED 07/14/2013 DENNYS REDMAN, JEAN 787.02 NAUSEA ALONE 07/14/2013 RAJOTTE EMISSION SPECIALIST, FELICITY A 729.1 MYALGIA AND MYOSITIS UNSPECIFIED 07/14/2013 RAJOTTE EMISSION SPECIALIST, FELICITY A 787.02 NAUSEA ALONE 08/08/2013 RAZA [...] APRN Ot 787.91 DIARRHEA 08/17/2013 ERIKA LEWIS EMISSION SPECIALIST Ot 789.09 ABDOMINAL PAIN, OTHER SPECIFIED SITE [...] LEYVA MD Ot 288.60 LEUKOCYTOSIS, UNSPECIFIED 11/02/2013 LAEH LEYVA MD Ot 300.00 ANXIETY STATE NOS [...] ABDOMINAL PAIN, RIGHT UPPER QUADRANT 11/17/2013 ELISSA EMISSION SPECIALIST, LENCHO S 564.1 IRRITABLE BOWEL SYNDROME 11/17/2013 [...] 789.07 ABDOMINAL PAIN GENERALIZED 11/29/2013 ERIKA LEWIS EMISSION SPECIALIST Ot 276.8 HYPOPOTASSEMIA 11/29/2013 ERIKA LEWIS EMISSION SPECIALIST Ot 599.0 URIN TRACT INFECTION NOS 11/29/2013 ERIKA LEWIS EMISSION SPECIALIST Ot 787.01 NAUSEA WITH VOMITING 12/07/2013 JEAN [...] V25.09 CONTRACEPTIVE COUNSELING - GENERAL 07/12/2014 JOYCELYN EMISSION SPECIALIST, FELICITY A V69.2 HIGH-RISK SEXUAL BEHAVIOR 07/12/2014 JOYCELYN EMISSION SPECIALIST, FELICITY A V72.41 TEST NEGATIVE RESULT 07/12/2014 DENNYS REDMAN, JEAN 626.0 AMENORRHEA 07/12/2014 DENNYS REDMAN, JEAN V25.09 CONTRACEPTIVE COUNSELING - GENERAL 07/12/2014 DENNYS REDMAN, JEAN V69.2 HIGH-RISK SEXUAL BEHAVIOR 07/12/2014 DENNYS REDMAN, JEAN V72.41 TEST NEGATIVE RESULT 07/12/2014 JOYCELYN EMISSION SPECIALIST, FELICITY A 626.0 AMENORRHEA 07/12/2014 JOYCELYN SERRATO FELICITY A V25.09 CONTRACEPTIVE COUNSELING - GENERAL 07/12/2014 JOYCELYN SERRATO FELICITY A V69.2 HIGH-RISK SEXUAL BEHAVIOR 07/12/2014 JOYCELYN EMISSION SPECIALIST, FELICITY A V72.41 TEST NEGATIVE RESULT 09/05/2014 Ot 959.19 09/05/2014 Ot E849.4 09/05/2014 Ot E888.9 09/05/2014 ANDERS GRAY EMISSION SPECIALIST Ot 787.01 09/05/2014 ANDERS GRAY EMISSION SPECIALIST Ot 789.00 09/05/2014 Ot 959.19 09/05/2014 Ot E849.4 09/05/2014 Ot E888.9 09/05/2014 ANDERS GRAY EMISSION SPECIALIST Ot 787.01 09/05/2014 ANDERS GRAY EMISSION SPECIALIST Ot 789.00 09/05/2014 CADE REDMAN, DONNA Sunshine Ot 536.2 PERSISTENT VOMITING 09/05/2014 CADE REDMAN, DONNA Sunshine Ot 787.91 DIARRHEA 09/05/2014 DONNA MOHAMUD MD Ot 789.07 ABDOMINAL PAIN, GENERALIZED 09/12/2014 Ot 959.19 09/12/2014 Ot E849.4 09/12/2014 Ot E888.9 09/12/2014 ANDERS GRAY R EMISSION SPECIALIST Ot 787.01 09/12/2014 ANDERS GRAY R EMISSION SPECIALIST Ot 789.00 09/20/2014 JESSICA HIRSCH APRNYL Anthony V74.1 TB SCREENING 10/02/2014 Ot 959.19 10/02/2014 Ot E849.4 10/02/2014 Ot E888.9 10/02/2014 ANDERS GRAY R EMISSION SPECIALIST Ot 787.01 10/02/2014 ANDERS GRAY EMISSION SPECIALIST Ot 789.00 10/04/2014 NENA REDMAN, BESS Cruz Ot 466.0 ACUTE BRONCHITIS 10/04/2014 BESS BARRETT MD Ot 786.2 COUGH 04/11/2015 ANDERS GRAY R EMISSION SPECIALIST Ot 787.01 04/11/2015 ANDERS GRAY R EMISSION SPECIALIST Ot 789.00 04/11/2015 ERIKA LEWIS EMISSION SPECIALIST Ot 305.21 CANNABIS ABUSE-CONTIN 04/11/2015 ERIKA LEWIS EMISSION SPECIALIST Ot 536.2 PERSISTENT VOMITING 04/11/2015 ERIKA LEWIS EMISSION SPECIALIST Ot 599.0 URIN TRACT INFECTION NOS 04/15/2015 DENNYS REDMAN, JEAN L Ot 276.2 ACIDOSIS 04/15/2015 DENNYS REDMAN, JEAN Brady Ot 276.51 DEHYDRATION 04/15/2015 JEAN NOYOLA MD Ot 276.8 HYPOPOTASSEMIA 04/15/2015 JEAN NOYOLA MD Ot 307.54 PSYCHOGENIC VOMITING 04/15/2015 JEAN NOYOLA MD Ot 788.1 DYSURIA 04/17/2015 ORLANDO MCDUFFIE Ot 305.20 CANNABIS ABUSE-UNSPEC 04/17/2015 ORLANDO MCDUFFIE Ot 536.2 PERSISTENT VOMITING 04/18/2015 ANDERS GRAY R EMISSION SPECIALIST Ot 787.01 04/18/2015 ANDERS GRAY R EMISSION SPECIALIST Ot 789.00 04/19/2015 JEAN NOYOLA MD Ot [...] Ot 787.03 VOMITING ALONE 05/20/2015 ERIKA LEWIS EMISSION SPECIALIST Ot 276.8 HYPOPOTASSEMIA 05/20/2015 ERIKA LEWIS EMISSION SPECIALIST Ot 599.0 URIN TRACT INFECTION NOS 05/20/2015 ERIKA LEWIS EMISSION SPECIALIST Ot 787.01 NAUSEA WITH VOMITING 08/14/2015 ERIKA LEWIS EMISSION SPECIALIST Ot F12.10 CANNABIS ABUSE, UNCOMPLICATED 08/14/2015 ERIKA LEWIS EMISSION SPECIALIST Ot G43.A0 CYCLICAL VOMITING, NOT INTRACTABLE 08/14/2015 ERIKA LEWIS EMISSION SPECIALIST Ot Z91.14 PATIENT'S OTHER NONCOMPLIANCE WITH MEDIC 08/20/2015 ANDERS GRAY EMISSION SPECIALIST Ot 787.01 08/20/2015 ANDERS GRAY EMISSION SPECIALIST Ot 789.00 08/21/2015 JASON LOPEZ MD Ot [...] HAYWARD DO Ot Z91.19 PATIENT'S NONCOMPLIANCE W [facility] MEDICAL TR 09/29/2015 HEIDI KOENIGMARYSOL Ot R10.9 [...] R10.84 GENERALIZED ABDOMINAL PAIN 12/10/2015 ANDERS GRAY EMISSION SPECIALIST Ot 787.01 12/10/2015 ANDERS GRAY EMISSION SPECIALIST Ot 789.00 12/10/2015 DONNA MOHAMUD MD Ot [...] ORLANDO MCDUFFIE Ot Z91.19 PATIENT'S NONCOMPLIANCE W [facility] MEDICAL TR 01/13/2016 Ot E87.1 HYPO- OSMOLALITY [...] L03.317 CELLULITIS OF BUTTOCK 02/22/2016 ERIKA LEWIS EMISSION SPECIALIST Ot L02.31 CUTANEOUS ABSCESS OF BUTTOCK 02/25/2016 ERIKA LEWIS EMISSION SPECIALIST Ot L02.31 CUTANEOUS ABSCESS OF BUTTOCK 02/25/2016 [...] OR REMOVAL OF DRAIN 06/11/2016 ANDERS GRAY EMISSION SPECIALIST Ot 787.01 NAUSEA WITH VOMITING 06/11/2016 ANDERS GRAY EMISSION SPECIALIST Ot 789.00 ABDOMINAL PAIN, UNSPECIFIED SITE 06/12/2016 ANDERS GRAY EMISSION SPECIALIST Ot 787.01 NAUSEA WITH VOMITING 06/12/2016 ANDERS GRAY EMISSION SPECIALIST Ot 789.00 ABDOMINAL PAIN, UNSPECIFIED SITE 06/12/2016 [...] ZOHREH Ot R05 COUGH 08/10/2016 ANDERS GRAY EMISSION SPECIALIST Ot 787.01 NAUSEA WITH VOMITING 08/10/2016 ANDERS GRAY R EMISSION SPECIALIST Ot 789.00 ABDOMINAL PAIN, UNSPECIFIED SITE 08/10/2016 [...] OTHER NONSPECIFIC SKIN ERUPTION 08/12/2016 ANDERS GRAY EMISSION SPECIALIST Ot 787.01 NAUSEA WITH VOMITING 08/12/2016 ANDERS GRAY EMISSION SPECIALIST Ot 789.00 ABDOMINAL PAIN, UNSPECIFIED SITE 08/12/2016 ERIKA LEWIS EMISSION SPECIALIST Ot L02.215 CUTANEOUS ABSCESS OF PERINEUM 08/14/2016 ERIKA LEWIS EMISSION SPECIALIST Ot L02.215 CUTANEOUS ABSCESS OF PERINEUM 08/14/2016 [...] NAUSEA WITH VOMITING, UNSPECIFIED 08/15/2016 ERIKA LEWIS EMISSION SPECIALIST Ot 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, UNCOMPLICATED 08/15/2016 ERIKA LEWIS APRN Ot F12.988 CANNABIS USE, UNSP WITH OTHER CANNABIS-I 08/15/2016 ERIKA LEWIS APRN Ot F13.10 SEDATIVE, HYPNOTIC OR ANXIOLYTIC ABUSE, 08/15/2016 ERIKA LEWIS EMISSION SPECIALIST Ot F17.210 NICOTINE DEPENDENCE, CIGARETTES, UNCOMPL 08/15/2016 ERIKA LEWIS EMISSION SPECIALIST Ot G43.A0 CYCLICAL VOMITING, NOT INTRACTABLE 08/18/2016 ERIKA LEWIS EMISSION SPECIALIST Ot 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, UNCOMPLICATED 08/18/2016 ERIKA LEWIS APRN Ot F12.988 CANNABIS USE, UNSP WITH OTHER CANNABIS-I 08/18/2016 ERIKA LEWIS APRN Ot F13.10 SEDATIVE, HYPNOTIC OR ANXIOLYTIC ABUSE, 08/18/2016 ERIKA LEWIS APRN Ot F17.210 NICOTINE DEPENDENCE, CIGARETTES, UNCOMPL 08/18/2016 ERIKA LEWIS APRN Ot G43.A0 CYCLICAL VOMITING, NOT INTRACTABLE 11/30/2017 ANDERS GRAY EMISSION SPECIALIST Ot 787.01 NAUSEA WITH VOMITING 11/30/2017 ANDERS GRAY EMISSION SPECIALIST Ot 789.00 ABDOMINAL PAIN, UNSPECIFIED SITE 11/30/2017 [...] TO ENVIRON TOBACCO SMO 12/18/2017 ERIKA LEWIS EMISSION SPECIALIST Ot Z82.49 FAMILY HX OF ISCHEM HEART DIS AND OTH DI 12/18/2017 ERIKA LEWIS EMISSION SPECIALIST Ot Z87.01 PERSONAL HISTORY OF PNEUMONIA (RECURRENT 12/18/2017 ERIKA LEWIS EMISSION SPECIALIST Ot Z87.448 PERSONAL HISTORY OF OTHER DISEASES OF UR 12/18/2017 ERIKA LEWIS EMISSION SPECIALIST Ot Z90.49 ACQUIRED ABSENCE OF OTHER SPECIFIED PART 12/18/2017 ERIKA ELWIS EMISSION SPECIALIST Ot Z91.14 PATIENT'S OTHER NONCOMPLIANCE WITH MEDIC 12/19/2017 ISAAC ANDERS R EMISSION SPECIALIST Ot 787.01 NAUSEA WITH VOMITING 12/19/2017 ISAAC, ANDERS R EMISSION SPECIALIST Ot 789.00 ABDOMINAL PAIN, UNSPECIFIED SITE 12/19/2017 ISAAC, ANDERS R EMISSION SPECIALIST Ot 787.01 NAUSEA WITH VOMITING 12/19/2017 ISAAC, ANDERS R EMISSION SPECIALIST Ot 789.00 ABDOMINAL PAIN, UNSPECIFIED SITE 12/19/2017 KARINA, MARTIN CLAY DRY PRESS MIXER OPERATOR Ot 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, UNCOMPLICATED 12/19/2017 KARINA, MARTIN CLAY DRY PRESS MIXER OPERATOR Ot F12.188 CANNABIS ABUSE WITH OTHER CANNABIS-INDUC 12/19/2017 KARINA, MARTIN CLAY DRY PRESS MIXER OPERATOR Ot F12.90 CANNABIS USE, UNSPECIFIED, UNCOMPLICATED 12/19/2017 KARINA, MARTIN CLAY DRY PRESS MIXER OPERATOR Ot F32.9 MAJOR DEPRESSIVE DISORDER, SINGLE EPISOD 12/19/2017 KARINA, MARTIN CLAY DRY PRESS MIXER OPERATOR Ot F41.9 ANXIETY DISORDER, UNSPECIFIED 12/19/2017 KARINA, MARTIN CLAY DRY PRESS MIXER OPERATOR Ot J45.909 UNSPECIFIED ASTHMA, UNCOMPLICATED 12/19/2017 KARINA, MARTIN CLAY DRY PRESS MIXER OPERATOR Ot O21.9 VOMITING OF , UNSPECIFIED 12/19/2017 KARINA, MARTIN CLAY DRY PRESS MIXER OPERATOR Ot O99.321 DRUG USE COMPLICATING , FIRST T 12/19/2017 KARINA, MARTIN CLAY DRY PRESS MIXER OPERATOR Ot O99.341 OTH MENTAL DISORDERS COMPLICATING PREGNA 12/19/2017 KARINA, MARTIN CLAY DRY PRESS MIXER OPERATOR Ot O99.511 DISEASES OF THE RESP SYS COMP , 12/19/2017 KARINA, MARTIN CLAY DRY PRESS MIXER OPERATOR Ot Z3A.01 LESS THAN 8 WEEKS GESTATION OF 12/19/2017 KARINA, MARTIN CLAY DRY PRESS MIXER OPERATOR Ot Z77.22 CNTCT W AND EXPSR TO ENVIRON TOBACCO SMO 12/19/2017 KARINA, AMRTIN CLAY DRY PRESS MIXER OPERATOR Ot Z87.01 PERSONAL HISTORY OF PNEUMONIA (RECURRENT 12/19/2017 KARINA, MARTIN CLAY DRY PRESS MIXER OPERATOR Ot Z87.42 PERSONAL HISTORY OF OTH DISEASES OF THE 12/19/2017 KARINA, MARTIN CLAY DRY PRESS MIXER OPERATOR Ot Z90.49 ACQUIRED ABSENCE OF OTHER SPECIFIED PART 12/21/2017 KARINA, MARTIN CLAY DRY PRESS MIXER OPERATOR Ot 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, UNCOMPLICATED 12/21/2017 KARINA, MARTIN CLAY DRY PRESS MIXER OPERATOR Ot F12.188 CANNABIS ABUSE WITH OTHER CANNABIS-INDUC 12/21/2017 KARINA, MARTIN CLAY DRY PRESS MIXER OPERATOR Ot F12.90 CANNABIS USE, UNSPECIFIED, UNCOMPLICATED 12/21/2017 KARINA, MARTIN CLAY DRY PRESS MIXER OPERATOR Ot F32.9 MAJOR DEPRESSIVE DISORDER, SINGLE EPISOD 12/21/2017 KARINA, MARTIN CLAY DRY PRESS MIXER OPERATOR Ot F41.9 ANXIETY DISORDER, UNSPECIFIED 12/21/2017 KARINA, MARTIN CLAY DRY PRESS MIXER OPERATOR Ot J45.909 UNSPECIFIED ASTHMA, UNCOMPLICATED 12/21/2017 KARINA, MARTIN CLAY DRY PRESS MIXER OPERATOR Ot O21.9 VOMITING OF , UNSPECIFIED 12/21/2017 KARINA, MARTIN CLAY DRY PRESS MIXER OPERATOR Ot O99.321 DRUG USE COMPLICATING , FIRST T 12/21/2017 KARINA, MARTIN CLAY DRY PRESS MIXER OPERATOR Ot O99.341 OTH MENTAL DISORDERS COMPLICATING PREGNA 12/21/2017 KARINA, MARTIN CLAY DRY PRESS MIXER OPERATOR Ot O99.511 DISEASES OF THE RESP SYS COMP , 12/21/2017 KARINA, MARTIN CLAY DRY PRESS MIXER OPERATOR Ot Z3A.01 LESS THAN 8 WEEKS GESTATION OF 12/21/2017 KARINA, MARTIN CLAY DRY PRESS MIXER OPERATOR Ot Z77.22 CNTCT W AND EXPSR TO ENVIRON TOBACCO SMO 12/21/2017 KARINA, MARTIN CLAY DRY PRESS MIXER OPERATOR Ot Z87.01 PERSONAL HISTORY OF PNEUMONIA (RECURRENT 12/21/2017 KARINA, MARTIN CLAY DRY PRESS MIXER OPERATOR Ot Z87.42 PERSONAL HISTORY OF OTH DISEASES OF THE 12/21/2017 KARINA, MARTIN CLAY DRY PRESS MIXER OPERATOR Ot Z90.49 ACQUIRED ABSENCE OF OTHER SPECIFIED [...] F32.9 MAJOR DEPRESSIVE DISORDER, SINGLE EPISOD 12/23/2017 ORLANDO MCDUFFIE Ot F41.9 ANXIETY DISORDER, UNSPECIFIED 12/23/2017 [...] OF OTHER SPECIFIED PART 01/28/2018 ANDERS GRAY EMISSION SPECIALIST Ot 787.01 NAUSEA WITH VOMITING 01/28/2018 ANDERS GRAY EMISSION SPECIALIST Ot 789.00 ABDOMINAL PAIN, UNSPECIFIED SITE 01/28/2018 ERIKA LEWIS APRN Ot F32.9 MAJOR DEPRESSIVE DISORDER, SINGLE EPISOD 01/28/2018 ERIKA LEWIS APRN Ot F41.9 ANXIETY DISORDER, UNSPECIFIED 01/28/2018 ERIKA LEWIS APRN Ot J45.909 UNSPECIFIED ASTHMA, UNCOMPLICATED 01/28/2018 ERIKA LEWIS APRN Ot O99.341 OTH MENTAL DISORDERS COMPLICATING PREGNA 01/28/2018 ERIKA LEWIS APRN Ot O99.511 DISEASES OF THE RESP SYS COMP , 01/28/2018 ERIKA LEWIS APRN Ot O99.89 OTH DISEASES AND CONDITIONS COMPL PREG/C 01/28/2018 ERIKA LEWIS APRN Ot R82.71 BACTERIURIA 01/28/2018 ERIKA LEWIS APRN Ot Z3A.12 12 WEEKS GESTATION OF 01/28/2018 ERIKA LEWIS APRN Ot Z77.22 CNTCT W AND EXPSR TO ENVIRON TOBACCO SMO 01/28/2018 ERIKA LEWIS APRN Ot Z82.49 FAMILY HX OF ISCHEM HEART DIS AND OTH DI 01/28/2018 ERIKA LEWIS EMISSION SPECIALIST Ot Z87.01 PERSONAL HISTORY OF PNEUMONIA (RECURRENT 01/28/2018 ERIKA LEWIS APRN Ot Z87.448 PERSONAL HISTORY OF OTHER DISEASES OF UR 01/28/2018 ERIKA LEWIS APRN Ot Z90.49 ACQUIRED ABSENCE OF OTHER SPECIFIED PART 02/01/2018 ERIKA LEWIS APRN Ot F32.9 MAJOR [...] Z90.49 ACQUIRED ABSENCE OF OTHER SPECIFIED PART 02/05/2018 ERIKA LEWIS APRN Ot F12.10 CANNABIS ABUSE, UNCOMPLICATED 02/05/2018 ERIKA LEWIS APRN Ot F32.9 MAJOR DEPRESSIVE DISORDER, SINGLE EPISOD 02/05/2018 ERIKA LEWIS APRN Ot F41.9 ANXIETY DISORDER, UNSPECIFIED 02/05/2018 ERIKA LEWIS APRN Ot J45.909 UNSPECIFIED ASTHMA, UNCOMPLICATED 02/05/2018 ERIKA LEWIS APRN Ot O21.9 VOMITING OF , UNSPECIFIED 02/05/2018 ERIKA LEWIS APRN Ot O99.322 DRUG USE COMPLICATING , SECOND 02/05/2018 ERIKA LEWIS APRN Ot O99.342 OTH MENTAL DISORDERS COMP , SEC 02/05/2018 ERIKA LEWIS APRN Ot O99.512 DISEASES OF THE RESP SYS COMP , 02/05/2018 ERIKA LEWIS APRN Ot Z3A.00 WEEKS OF GESTATION OF NOT SPEC 02/05/2018 ERIKA LEWIS APRN Ot Z77.22 CNTCT W AND EXPSR TO ENVIRON TOBACCO SMO 02/05/2018 ERIKA LEWIS APRN Ot Z82.49 FAMILY HX OF ISCHEM HEART DIS AND OTH DI 02/05/2018 ERIKA LEWIS APRN Ot Z87.01 PERSONAL HISTORY OF PNEUMONIA (RECURRENT 02/05/2018 ERIKA LEWIS APRN Ot Z87.448 PERSONAL HISTORY OF OTHER DISEASES OF UR 02/08/2018 ERIKA LEWIS APRN Ot F12.10 CANNABIS ABUSE, UNCOMPLICATED 02/08/2018 ERIKA LEWIS APRN Ot F32.9 MAJOR DEPRESSIVE DISORDER, SINGLE EPISOD 02/08/2018 ERIKA LEWIS APRN Ot F41.9 ANXIETY DISORDER, UNSPECIFIED 02/08/2018 ERIKA LEWIS APRN Ot J45.909 UNSPECIFIED ASTHMA, UNCOMPLICATED 02/08/2018 ERIKA LEWIS APRN Ot O21.9 VOMITING OF , UNSPECIFIED 02/08/2018 ERIKA LEWIS APRN Ot O99.322 DRUG USE COMPLICATING , SECOND 02/08/2018 ERIKA LEWIS APRN Ot O99.342 OTH MENTAL DISORDERS COMP , SEC 02/08/2018 ERIKA LEWIS APRN Ot O99.512 DISEASES OF THE RESP SYS COMP , 02/08/2018 ERIKA LEWIS EMISSION SPECIALIST Ot Z3A.00 WEEKS OF GESTATION OF NOT SPEC 02/08/2018 ERIKA LEWIS EMISSION SPECIALIST Ot Z77.22 CNTCT W AND EXPSR TO ENVIRON TOBACCO SMO 02/08/2018 ERIKA LEWIS EMISSION SPECIALIST Ot Z82.49 FAMILY HX OF ISCHEM HEART DIS AND OTH DI 02/08/2018 ERIKA LEWIS EMISSION SPECIALIST Ot Z87.01 PERSONAL HISTORY OF PNEUMONIA (RECURRENT 02/08/2018 ERIKA LEWIS EMISSION SPECIALIST Ot Z87.448 PERSONAL HISTORY OF OTHER DISEASES OF UR 03/10/2018 FENECH DO, CASSY S Ot Z36.89 ENCOUNTER FOR OTHER SPECIFIED 03/10/2018 FENECH DO, CASSY S Ot Z3A.18 18 WEEKS GESTATION OF 03/20/2018 ANDERS GRAY EMISSION SPECIALIST Ot 787.01 NAUSEA WITH VOMITING 03/20/2018 ANDERS GRAY EMISSION SPECIALIST Ot 789.00 ABDOMINAL PAIN, UNSPECIFIED SITE 03/20/2018 FENECH DO, CASSY S Ot Z36.89 ENCOUNTER FOR OTHER SPECIFIED 03/20/2018 FENECH DO, CASSY S Ot Z3A.18 18 WEEKS GESTATION OF 03/20/2018 DONNA ABDULLAHI MD Ot O21.0 MILD HYPEREMESIS GRAVIDARUM 03/20/2018 DONNA ABDULLAHI MD Ot Z3A.20 20 WEEKS GESTATION OF 03/22/2018 DONNA ABDULLAHI MD Ot O21.0 MILD HYPEREMESIS GRAVIDARUM 03/22/2018 DONNA ABDULLAHI MD Ot Z3A.20 20 WEEKS GESTATION OF 03/29/2018 FENECH DO, CASSY S Ot Z36.89 ENCOUNTER FOR OTHER SPECIFIED 03/29/2018 FENECH DO, CASSY S Ot Z3A.18 18 WEEKS GESTATION OF 05/09/2018 ANDERS GRAY EMISSION SPECIALIST Ot 787.01 NAUSEA WITH VOMITING 05/09/2018 ANDERS GRAY EMISSION SPECIALIST Ot 789.00 ABDOMINAL PAIN, UNSPECIFIED SITE 05/09/2018 FENECH DO, CASSY S Ot Z36.89 ENCOUNTER FOR OTHER SPECIFIED 05/09/2018 FENECH DO, CASSY S Ot Z3A.18 18 WEEKS GESTATION OF 06/08/2018 GRIFFIN MARTIN DO Ot O21.9 VOMITING OF , UNSPECIFIED 06/08/2018 MARIO KOENIG GRIFFIN C Ot R10.9 UNSPECIFIED ABDOMINAL PAIN 06/08/2018 MARTINFredy KOENIG GRIFFIN C Ot Z3A.00 WEEKS OF GESTATION OF NOT SPEC 06/10/2018 CASSY NI DO Ot E87.1 HYPO-OSMOLALITY AND HYPONATREMIA 06/10/2018 CASSY NI DO S Ot F11.90 OPIOID USE, UNSPECIFIED, UNCOMPLICATED 06/10/2018 CASSY NI DO S Ot F12.90 CANNABIS USE, UNSPECIFIED, UNCOMPLICATED 06/10/2018 CASSY NI DO S Ot G89.29 OTHER CHRONIC PAIN 06/10/2018 CASSY NI DO S Ot O21.2 LATE VOMITING OF 06/10/2018 CASSY NI DO S Ot O36.5930 MATERN CARE FOR OTH OR SUSP POOR FETL GR 06/10/2018 CASSY NI DO S Ot O99.283 ENDO, NUTRITIONAL AND METAB DISEASES COM 06/10/2018 CASSY NI DO S Ot O99.353 DISEASES OF THE NERVOUS SYS COMP PREGNAN 06/10/2018 CASSY IN DO S Ot R63.4 ABNORMAL WEIGHT LOSS 06/10/2018 CASSY NI DO S Ot Z3A.32 32 WEEKS GESTATION OF 06/10/2018 CASSY NI DO Ot E87.1 HYPO-OSMOLALITY AND HYPONATREMIA 06/10/2018 CASSY NI DO S Ot F11.90 OPIOID USE, UNSPECIFIED, UNCOMPLICATED 06/10/2018 CASSY NI DO S Ot F12.90 CANNABIS USE, UNSPECIFIED, UNCOMPLICATED 06/10/2018 CASSY NI DO S Ot G89.29 OTHER CHRONIC PAIN 06/10/2018 CASSY NI DO S Ot O21.2 LATE VOMITING OF 06/10/2018 CASSY NI DO S Ot O36.5930 MATERN CARE FOR OTH OR SUSP POOR FETL GR 06/10/2018 CASSY NI DO S Ot O99.283 ENDO, NUTRITIONAL AND METAB DISEASES COM 06/10/2018 LEANNECH CASSY KOENIG S Ot O99.353 DISEASES OF THE NERVOUS SYS COMP PREGNAN 06/10/2018 CASSY NI DO S Ot R63.4 ABNORMAL WEIGHT LOSS 06/10/2018 CASSY NI DO S Ot Z3A.32 32 WEEKS GESTATION OF 06/24/2018 GRIFFIN MARTIN DO Ot O21.9 VOMITING OF , UNSPECIFIED 06/24/2018 GRIFFIN MARTIN DO Ot R10.9 UNSPECIFIED ABDOMINAL PAIN 06/24/2018 GRIFFIN MARTIN DO Ot Z3A.00 WEEKS OF GESTATION OF NOT SPEC 06/26/2018 GRIFFIN MARTIN DO Ot O21.9 VOMITING OF , UNSPECIFIED 06/26/2018 GRIFFIN MARTIN DO Ot R10.9 UNSPECIFIED ABDOMINAL PAIN 06/26/2018 GRIFFIN MARTIN DO Ot Z3A.00 WEEKS OF GESTATION OF NOT SPEC 06/29/2018 FENECH DOCASSY Ot O21.2 LATE VOMITING OF 06/29/2018 FENECH DOCASSY Ot Z3A.34 34 WEEKS GESTATION OF Procedures Code Description [place] [address] STREP A (IN-HOUSE) 11/05/2012 78630 UA LONG DIP 07/14/2013 60686 URINE TEST (IN- HOUSE) 07/14/2013 67756 ROUTINE VENIPUNCTURE 09/28/2013 40419 H PYLORI (IN-HOUSE) 09/28/2013 55295 ESR/SED RATE 09/28/2013 29468 US GALLBLADDER ULTRASOUND 09/29/2013 62038 CBC W/MANUAL DIF (order) 09/29/2013 [id number] COMPLETE BLOOD COUNT NO DIFF (CBC Result) 09/29/2013 59278 DIFFERENTIAL WBC COUNT (CBC DIFF RESULT) 09/29/2013 37441 CRP 09/29/2013 34769 CELIAC DISEASE ANALYZER 09/30/2013 13218 H PYLORI (IN-HOUSE) 10/27/2013 45.16 ESOPHAGOGASTRODUODENOSCOPY [ EGD] W/CLOSE 10/31/2013 51.23 LAPAROSCOPIC CHOLECYSTECTOMY 11/02/2013 75703 URINE DRUG SCREEN (IN-HOUSE ) 11/17/2013 25538 TEST, URINE (IN- HOUSE) 11/17/2013 47.01 LAPAROSCOP APPENDECTOMY 12/05/2013 65.25 OT LAPAROSCOP LOCAL EXCIS/ DESTRUCT OVAR 12/05/2013 66.61 DESTROY FALLOP TUBE LES 12/05/2013 69.19 DESTRUC UTER SUPPORT NEC 12/05/2013 70.32 EXCIS CUL-DE-SAC LESION 12/05/2013 GASTROENT CM, GI 12/14/2013 35231 TEST, URINE (IN- HOUSE) 07/12/2014 FAMILY [place] ANDERS GRAY 07/30/2014 78084 TB TEST INTRADERMAL 09/20/2014 Results Test Result [...] culture - 08/14/16 06:00 Bacterial urine culture [id number] NRG COLONY COUNT 10,000/ML - 100,000/ML NRG [...] 18:17 Serum or plasma choriogonadotropin measurement (units/volume) 78483 m[iU]/mL <5 Complete blood count (CBC) with [...] identification in genital specimen by aerobe culture [id number] NRG Microscopic examination by wet preparation - [...] 15:30 Serum or plasma choriogonadotropin measurement (units/volume) 96503 m[iU]/mL <5 Urine drug screening test - [...] in urine Negative NRG Serum or plasma 2-xzhdkhjhjc-0,6-jebthuih-3,3-diphenylpyrrolidine (eddp) detection Negative NRG Urine opiates detection Positive NRG Urine phencyclidine (PCP) detection Negative NRG Propoxyphene [mass/volume] in urine Negative NRG Urine salicylates measurement (mass/volume) Negative NRG Urine tetrahydrocannabinol detection by screening method Positive NRG Bacterial urine culture - 01/28/18 13:06 Bacterial urine culture [id number] NRG COLONY COUNT 10,000/ML - 100,000/ML NRG FREE TEXT ENTRY 2 MIXED GRAM POSITIVE ARAVIND <10,000/ML NRG Complete urinalysis with reflex to culture - 02/05/18 16:10 Urine color determination YELLOW NRG Urine clarity determination CLEAR NRG Urine pH measurement by test strip 6 5-9 Specific gravity of urine by test strip 1.025 1.016- 1.022 Urine protein assay by test strip, semi-quantitative 2+ NEGATIVE Urine glucose detection by automated test strip NEGATIVE NEGATIVE Erythrocytes detection in urine sediment by light microscopy 2+ NEGATIVE Urine ketones detection by automated test [...] NO NRG Urine drug screening test - 02/05/18 16:10 Urine phencyclidine detection by screening method NEGATIVE [...] POSITIVE NEGATIVE Urine propoxyphene detection NEGATIVE NEGATIVE Comprehensive metabolic panel - 02/05/18 16:19 Serum or plasma sodium measurement (moles/volume) 134 mmol/L 135-145 Serum or plasma potassium measurement (moles/volume) 3.1 mmol/L 3.6-5.0 Serum or plasma chloride measurement (moles/volume) 96 mmol/L 98-107 Carbon dioxide 22 mmol/L 21-32 Serum or plasma anion gap determination (moles/volume) 16 mmol/L 5-14 Serum or plasma urea nitrogen measurement (mass/volume) 16 mg/dL 7-18 Serum or plasma creatinine measurement (mass/volume) 0.55 mg/dL 0.60-1.30 Serum or plasma urea nitrogen/creatinine mass ratio 29 NRG Serum or plasma creatinine measurement with calculation of estimated glomerular filtration rate > NRG Serum or plasma glucose measurement (mass/volume) 96 mg/dL 70-105 Serum or plasma calcium measurement (mass/volume) 9.8 mg/dL 8.5-10.1 Serum or plasma total bilirubin measurement (mass/volume) 1.4 mg/dL 0.1-1.0 Serum or plasma alkaline phosphatase measurement (enzymatic activity/volume) 48 U/L 40-136 Serum or plasma aspartate aminotransferase measurement (enzymatic activity/ volume) 13 U/L 5-34 Serum or plasma alanine aminotransferase measurement (enzymatic activity/volume ) 8 U/L 0-55 Serum or plasma protein measurement (mass/volume) 6.9 g/dL 6.4-8.2 Serum or plasma albumin measurement (mass/volume) 4.2 g/dL 3.2-4.5 Lipase - 02/05/18 16:19 Lipase 10 U/L 8-78 Complete blood count (CBC) with automated white blood cell (WBC) differential - 03/20/18 15:30 Blood leukocytes automated count (number/volume) 11.7 10*3/uL 4.3-11.0 Blood erythrocytes automated count (number/volume) 4.19 10*6/uL 4.35-5.85 Venous blood hemoglobin measurement (mass/volume) 14.1 g/dL 11.5-16.0 Blood hematocrit (volume fraction) 38 % 35-52 Automated erythrocyte mean corpuscular volume 90 [foz_us] 80-99 Automated erythrocyte mean corpuscular hemoglobin (mass per erythrocyte) 34 pg 25-34 Automated erythrocyte mean corpuscular hemoglobin concentration measurement ( mass/volume) 37 g/dL 32-36 Automated erythrocyte distribution width ratio 12.5 % 10.0-14.5 Automated blood platelet count (count/volume) 333 10*3/uL 130-400 Automated blood platelet mean volume measurement 9.4 [foz_us] 7.4-10.4 Automated blood neutrophils/100 leukocytes 76 % 42-75 Automated blood lymphocytes/100 leukocytes 17 % 12-44 Blood monocytes/100 leukocytes 6 % 0-12 Automated blood eosinophils/100 leukocytes 0 % 0-10 Automated blood basophils/100 leukocytes 0 % 0-10 Blood neutrophils automated count (number/volume) 8.9 10*3 1.8-7.8 Blood lymphocytes automated count (number/volume) 2.0 10*3 1.0-4.0 Blood monocytes automated count (number/volume) 0.7 10*3 0.0-1.0 Automated eosinophil count 0.1 10*3/uL 0.0-0.3 Automated blood basophil count (count/volume) 0.0 10*3/uL 0.0-0.1 Comprehensive metabolic panel - 03/20/18 15:30 Serum or plasma sodium measurement (moles/volume) 130 mmol/L 135-145 Serum or plasma potassium measurement (moles/volume) 3.2 mmol/L 3.6-5.0 Serum or plasma chloride measurement (moles/volume) 98 mmol/L 98-107 Carbon dioxide 15 mmol/L 21-32 Serum or plasma anion gap determination (moles/volume) 17 mmol/L 5-14 Serum or plasma urea nitrogen measurement (mass/volume) 9 mg/dL 7-18 Serum or plasma creatinine measurement (mass/volume) 0.55 mg/dL 0.60-1.30 Serum or plasma urea nitrogen/creatinine mass ratio 16 NRG Serum or plasma creatinine measurement with calculation of estimated glomerular filtration rate > NRG Serum or plasma glucose measurement (mass/volume) 64 mg/dL 70-105 Serum or plasma calcium measurement (mass/volume) 9.0 mg/dL 8.5-10.1 Serum or plasma total bilirubin measurement (mass/volume) 1.1 mg/dL 0.1-1.0 Serum or plasma alkaline phosphatase measurement (enzymatic activity/volume) 62 U/L 40-136 Serum or plasma aspartate aminotransferase measurement (enzymatic activity/ volume) 26 U/L 5-34 Serum or plasma alanine aminotransferase measurement (enzymatic activity/volume ) 27 U/L 0-55 Serum or plasma protein measurement (mass/volume) 6.9 g/dL 6.4-8.2 Serum or plasma albumin measurement (mass/volume) 3.9 g/dL 3.2-4.5 Complete urinalysis with reflex to culture - 03/20/18 15:45 Urine color determination YELLOW NRG Urine clarity determination SLIGHTLY CLOUDY NRG Urine pH measurement by test strip 6 5-9 Specific gravity of urine by test strip 1.025 1.016- 1.022 Urine protein assay by test [...] detection in urine sediment by light microscopy 2-5 NRG Crystals detection in urine sediment by light microscopy NONE NRG Casts detection in urine sediment by light microscopy NONE NRG Mucus detection in urine sediment by light microscopy NEGATIVE NRG Complete urinalysis with reflex to culture NO NRG Renal epithelial cells detection in urine sediment by light microscopy NONE NRG Urine drug screening test - 03/20/18 16:58 Urine phencyclidine detection by screening method NEGATIVE NEGATIVE Urine benzodiazepines detection by screening method POSITIVE NEGATIVE Urine cocaine detection NEGATIVE NEGATIVE Urine amphetamines detection by screening method NEGATIVE NEGATIVE Urine methamphetamine detection by screening method NEGATIVE NEGATIVE Urine cannabinoids detection by screening method NEGATIVE NEGATIVE Urine opiates detection by screening method POSITIVE NEGATIVE Urine barbiturates detection NEGATIVE NEGATIVE Screening urine tricyclic antidepressants detection NEGATIVE NEGATIVE Urine methadone detection by screening method NEGATIVE NEGATIVE Urine oxycodone detection NEGATIVE NEGATIVE Urine propoxyphene detection NEGATIVE NEGATIVE Urine drug screening test - 05/09/18 12:30 Urine phencyclidine detection by screening method NEGATIVE [...] Complete urinalysis with reflex to culture - 05/09/18 12:30 Urine color determination YELLOW NRG Urine clarity [...] count by microscopy (number/high power field ) RARE NRG Bacteria detection in urine sediment by light microscopy NEGATIVE NRG Squamous epithelial cells detection in urine sediment by light microscopy RARE NRG Crystals detection in urine sediment by light microscopy NONE NRG Casts detection in urine sediment by light microscopy NONE NRG Mucus detection in urine sediment by light microscopy NEGATIVE NRG Complete urinalysis with reflex to culture NO NRG Urine protein/creatinine mass ratio - 05/09/18 12:30 Urine protein measurement (mass/volume) 24 mg/dL 6-12 Urine creatinine measurement (mass/volume) 166 mg/dL 30- 125 Urine protein/creatinine mass ratio 0.14 NRG Complete blood count (CBC) with automated white blood cell (WBC) differential - 05/09/18 12:34 Blood leukocytes automated count (number/volume) 11.4 10*3/uL 4.3-11.0 Blood erythrocytes automated count (number/volume) 3.63 10*6/uL 4.35-5.85 Venous blood hemoglobin measurement (mass/volume) 11.8 g/dL 11.5-16.0 Blood hematocrit (volume fraction) 34 % 35-52 Automated erythrocyte mean corpuscular volume 93 [foz_us] 80-99 Automated erythrocyte mean corpuscular hemoglobin (mass per erythrocyte) 33 pg 25-34 Automated erythrocyte mean corpuscular hemoglobin concentration measurement ( mass/volume) 35 g/dL 32-36 Automated erythrocyte distribution width ratio 12.8 % 10.0-14.5 Automated blood platelet count (count/volume) 279 10*3/uL 130-400 Automated blood platelet mean volume measurement 9.2 [foz_us] 7.4-10.4 Automated blood neutrophils/100 leukocytes 82 % 42-75 Automated blood lymphocytes/100 leukocytes 13 % 12-44 Blood monocytes/100 leukocytes 4 % 0-12 Automated blood eosinophils/100 leukocytes 0 % 0-10 Automated blood basophils/100 leukocytes 0 % 0-10 Blood neutrophils automated count (number/volume) 9.4 10*3 1.8-7.8 Blood lymphocytes automated count (number/volume) 1.5 10*3 1.0-4.0 Blood monocytes automated count (number/volume) 0.5 10*3 0.0-1.0 Automated eosinophil count 0.0 10*3/uL 0.0-0.3 Automated blood basophil count (count/volume) 0.0 10*3/uL 0.0-0.1 Comprehensive metabolic panel - 05/09/18 12:34 Serum or plasma sodium measurement (moles/volume) 138 mmol/L 135-145 Serum or plasma potassium measurement (moles/volume) 3.4 mmol/L 3.6-5.0 Serum or plasma chloride measurement (moles/volume) 108 mmol/L 98-107 Carbon dioxide 20 mmol/L 21-32 Serum or plasma anion gap determination (moles/volume) 10 mmol/L 5-14 Serum or plasma urea nitrogen measurement (mass/volume) 7 mg/dL 7-18 Serum or plasma creatinine measurement (mass/volume) 0.49 mg/dL 0.60-1.30 Serum or plasma urea nitrogen/creatinine mass ratio 14 NRG Serum or plasma creatinine measurement with calculation of estimated glomerular filtration rate > NRG Serum or plasma glucose measurement (mass/volume) 81 mg/dL 70-105 Serum or plasma calcium measurement (mass/volume) 8.7 mg/dL 8.5-10.1 Serum or plasma total bilirubin measurement (mass/volume) 0.6 mg/dL 0.1-1.0 Serum or plasma alkaline phosphatase measurement (enzymatic activity/volume) 64 U/L 40-136 Serum or plasma aspartate aminotransferase measurement (enzymatic activity/ volume) 12 U/L 5-34 Serum or plasma alanine aminotransferase measurement (enzymatic activity/volume ) 8 U/L 0-55 Serum or plasma protein measurement (mass/volume) 5.9 g/dL 6.4-8.2 Serum or plasma albumin measurement (mass/volume) 3.3 g/dL 3.2-4.5 Complete blood count (CBC) with automated white blood cell (WBC) differential - 06/08/18 12:04 Blood leukocytes automated count (number/volume) 11.6 10*3/uL 4.3-11.0 Blood erythrocytes automated count (number/volume) 3.39 10*6/uL 4.35-5.85 Venous blood hemoglobin measurement (mass/volume) 11.1 g/dL 11.5-16.0 Blood hematocrit (volume fraction) 31 % 35-52 Automated erythrocyte mean corpuscular volume 92 [foz_us] 80-99 Automated erythrocyte mean corpuscular hemoglobin (mass per erythrocyte) 33 pg 25-34 Automated erythrocyte mean corpuscular hemoglobin concentration measurement ( mass/volume) 36 g/dL 32-36 Automated erythrocyte distribution width ratio 12.8 % 10.0-14.5 Automated blood platelet count (count/volume) 256 10*3/uL 130-400 Automated blood platelet mean volume measurement 9.4 [foz_us] 7.4-10.4 Automated blood neutrophils/100 leukocytes 79 % 42-75 Automated blood lymphocytes/100 leukocytes 15 % 12-44 Blood monocytes/100 leukocytes 6 % 0-12 Automated blood eosinophils/100 leukocytes 0 % 0-10 Automated blood basophils/100 leukocytes 0 % 0-10 Blood neutrophils automated count (number/volume) 9.2 10*3 1.8-7.8 Blood lymphocytes automated count (number/volume) 1.8 10*3 1.0-4.0 Blood monocytes automated count (number/volume) 0.7 10*3 0.0-1.0 Automated eosinophil count 0.0 10*3/uL 0.0-0.3 Automated blood basophil count (count/volume) 0.0 10*3/uL 0.0-0.1 Comprehensive metabolic panel - 06/08/18 12:04 Serum or plasma sodium measurement (moles/volume) 134 mmol/L 135-145 Serum or plasma potassium measurement (moles/volume) 3.2 mmol/L 3.6-5.0 Serum or plasma chloride measurement (moles/volume) 102 mmol/L 98-107 Carbon dioxide 18 mmol/L 21-32 Serum or plasma anion gap determination (moles/volume) 14 mmol/L 5-14 Serum or plasma urea nitrogen measurement (mass/volume) 10 mg/dL 7-18 Serum or plasma creatinine measurement (mass/volume) 0.51 mg/dL 0.60-1.30 Serum or plasma urea nitrogen/creatinine mass ratio 20 NRG Serum or plasma creatinine measurement with calculation of estimated glomerular filtration rate > NRG Serum or plasma glucose measurement (mass/volume) 82 mg/dL 70-105 Serum or plasma calcium measurement (mass/volume) 8.6 mg/dL 8.5-10.1 Serum or plasma total bilirubin measurement (mass/volume) 0.8 mg/dL 0.1-1.0 Serum or plasma alkaline phosphatase measurement (enzymatic activity/volume) 91 U/L 40-136 Serum or plasma aspartate aminotransferase measurement (enzymatic activity/ volume) 14 U/L 5-34 Serum or plasma alanine aminotransferase measurement (enzymatic activity/volume ) 9 U/L 0-55 Serum or plasma protein measurement (mass/volume) 6.0 g/dL 6.4-8.2 Serum or plasma albumin measurement (mass/volume) 3.4 g/dL 3.2-4.5 CALCIUM CORRECTED 9.1 mg/dL 8.5-10.1 Complete urinalysis with reflex to culture - 06/08/18 12:55 Urine color determination YELLOW NRG Urine clarity determination CLEAR NRG Urine pH measurement by test strip 6 5-9 Specific gravity of urine by test strip 1.025 1.016- 1.022 Urine protein assay by test [...] automated white blood cell (WBC) differential - 06/10/18 11:05 Blood leukocytes automated count (number/volume) 6.7 10*3/uL 4.3-11.0 Blood erythrocytes automated count (number/volume) 3.16 10*6/uL 4.35-5.85 Venous blood hemoglobin measurement (mass/volume) 10.4 g/dL 11.5-16.0 Blood hematocrit (volume fraction) 30 % 35-52 Automated erythrocyte mean corpuscular volume 94 [foz_us] 80-99 Automated erythrocyte mean corpuscular hemoglobin (mass per erythrocyte) 33 pg 25-34 Automated erythrocyte mean corpuscular hemoglobin concentration measurement ( mass/volume) 35 g/dL 32-36 Automated erythrocyte distribution width ratio 13.0 % 10.0-14.5 Automated blood platelet count (count/volume) 228 10*3/uL 130-400 Automated blood platelet mean volume measurement 9.4 [foz_us] 7.4-10.4 Automated blood neutrophils/100 leukocytes 62 % 42-75 Automated blood lymphocytes/100 leukocytes 29 % 12-44 Blood monocytes/100 leukocytes 8 % 0-12 Automated blood eosinophils/100 leukocytes 1 % 0-10 Automated blood basophils/100 leukocytes 0 % 0-10 Blood neutrophils automated count (number/volume) 4.2 10*3 1.8-7.8 Blood lymphocytes automated count (number/volume) 2.0 10*3 1.0-4.0 Blood monocytes automated count (number/volume) 0.6 10*3 0.0-1.0 Automated eosinophil count 0.1 10*3/uL 0.0-0.3 Automated blood basophil count (count/volume) 0.0 10*3/uL 0.0-0.1 Comprehensive metabolic panel - 06/10/18 11:05 Serum or plasma sodium measurement (moles/volume) 135 mmol/L 135-145 Serum or plasma potassium measurement (moles/volume) 3.3 mmol/L 3.6-5.0 Serum or plasma chloride measurement (moles/volume) 108 mmol/L 98-107 Carbon dioxide 19 mmol/L 21-32 Serum or plasma anion gap determination (moles/volume) 8 mmol/L 5-14 Serum or plasma urea nitrogen measurement (mass/volume) 2 mg/dL 7-18 Serum or plasma creatinine measurement (mass/volume) 0.48 mg/dL 0.60-1.30 Serum or plasma urea nitrogen/creatinine mass ratio 4 NRG Serum or plasma creatinine measurement with calculation of estimated glomerular filtration rate > NRG Serum or plasma glucose measurement (mass/volume) 77 mg/dL 70-105 Serum or plasma calcium measurement (mass/volume) 8.2 mg/dL 8.5-10.1 Serum or plasma total bilirubin measurement (mass/volume) 0.6 mg/dL 0.1-1.0 Serum or plasma alkaline phosphatase measurement (enzymatic activity/volume) 75 U/L 40-136 Serum or plasma aspartate aminotransferase measurement (enzymatic activity/ volume) 21 U/L 5-34 Serum or plasma alanine aminotransferase measurement (enzymatic activity/volume ) 17 U/L 0-55 Serum or plasma protein measurement (mass/volume) 4.9 g/dL 6.4-8.2 Serum or plasma albumin measurement (mass/volume) 2.8 g/dL 3.2-4.5 CALCIUM CORRECTED 9.2 mg/dL 8.5-10.1 Complete urinalysis with reflex to culture - 07/18/18 11:23 Urine color determination YELLOW NRG Urine clarity [...] detection in urine sediment by light microscopy TRACE NRG Squamous epithelial cells detection in urine sediment by light microscopy >50 NRG Crystals detection in urine sediment by light microscopy NONE NRG Casts detection in urine sediment by light microscopy NONE NRG Mucus detection in urine sediment by light microscopy NEGATIVE NRG Complete urinalysis with reflex to culture NO NRG Urine drug screening test - 07/18/18 11:23 Urine phencyclidine detection by screening method NEGATIVE [...] POSITIVE NEGATIVE Urine propoxyphene detection NEGATIVE NEGATIVE Encounters ACCT No. Visit Date/Time Discharge Status Pt. Type Provider Facility Loc./Unit Complaint [id number] 09/20/2014 10:53:00 09/20/2014 23:59:59 CLS Outpatient FELICITY HIRSCH APRN [id number] 07/28/2014 14:45:00 07/28/2014 23:59:59 CLS Outpatient JEAN NOYOLA MD [id number] 07/12/2014 11:53:00 07/12/2014 23:59:59 CLS Outpatient FELICITY HIRSCH APRN [id number] 01/18/2014 13:03:00 01/18/2014 23:59:59 CLS Outpatient CAYDEN RAZA DO [facility] [id number] 12/14/2013 15:32:00 12/14/2013 23:59:59 CLS Outpatient ALPHONSE ARDON MD [id number] 11/17/2013 10:52:00 11/17/2013 23:59:59 CLS Outpatient LENCHO BOWERS APRN [id number] 10/27/2013 17:14:00 10/27/2013 23:59:59 CLS Outpatient LENCHO BOWERS APRN [id number] 09/28/2013 16:40:00 09/28/2013 23:59:59 CLS Outpatient JEAN NOYOLA MD [id number] 09/06/2013 10:41:00 09/06/2013 23:59:59 CLS Outpatient JEAN NOYOLA MD [id number] 08/23/2013 10:52:00 08/23/2013 23:59:59 CLS Outpatient JEAN NOYOLA MD [id number] 08/08/2013 17:51:00 08/08/2013 23:59:59 CLS Outpatient LUZ MARINA KOENIGCAYDEN [facility] [id number] 07/14/2013 13:19:00 07/14/2013 23:59:59 CLS Outpatient LENCHO BOWERS APRN [id number] 11/11/2012 14:11:00 11/11/2012 23:59:59 CLS Outpatient [id number] 11/05/2012 14:42:00 11/05/2012 23:59:59 CLS Outpatient [id number] 05/20/2015 11:05:33 ACT Document Registration [id number] 07/18/2018 11:08:00 07/18/2018 12:15:00 DIS Outpatient GRIFFIN MARTIN DO [facility] ABD [facility] [id number] 06/27/2018 10:20:00 06/27/2018 11:40:00 DIS Outpatient CASSY NI DO S [facility] WSo PAIN [id number] 06/09/2018 09:44:00 06/10/2018 14:00:00 DIS Inpatient RAINE KOENIG CASSY Muniz [facility] LDRP VOMITING,ABD PAIN [id number] 06/08/2018 10:59:00 06/08/2018 19:55:00 DIS Outpatient GRIFFIN MARTIN DO [facility] ABD PAIN/VOMITING [id number] 05/09/2018 11:40:00 05/09/2018 13:26:00 DIS Outpatient DONNA ABDULLAHI MD [facility] N/V,ABD PAIN [id number] 03/20/2018 15:06:00 03/20/2018 19:38:00 DIS Outpatient DONNA ABDULLAHI MD [facility] VOMITING/STOMACH PAIN [id number] 03/09/2018 13:18:00 03/09/2018 23:59:59 CLS Outpatient RAINE CASSY KOENIG [facility] RAD [id number] 02/05/2018 15:56:00 02/05/2018 18:30:00 DIS Emergency ERIKA LEWIS APRN [facility] ER VOMITING;4MO [id number] 01/28/2018 12:08:00 01/28/2018 13:40:00 DIS Emergency ERIKA LEWIS APRN [facility] ER ABD PAIN [id number] 12/21/2017 14:07:00 12/21/2017 18:24:00 DIS Emergency ORLANDO MCDUFFIE [facility] ER VOMITING [id number] 12/19/2017 10:51:00 12/19/2017 16:21:00 DIS Emergency MARTIN COLLINS [facility] ER VOMITING [id number] 12/17/2017 10:06:00 12/17/2017 11:05:00 DIS Emergency ERIKA LEWIS APRN [facility] ER VOMITING [id number] 12/16/2017 12:22:00 12/16/2017 15:14:00 DIS Emergency ERIKA LEWIS APRN [facility] ER VOMITING [id number] 12/15/2017 17:45:00 12/15/2017 20:30:00 DIS Emergency ZOHREH HAYWARD DO [facility] ER ABD PAIN; 5-6 WKS [id number] 12/09/2017 20:54:00 12/09/2017 23:40:00 DIS Emergency OR[place]O MCDUFFIE [facility] ER EDOMETRIOSIS [id number] 11/30/2017 12:31:00 11/30/2017 14:57:00 DIS Emergency DONNA MOHAMUD MD [facility] ER PELVIC PAIN/SWELLING [id number] 08/15/2016 19:40:00 08/15/2016 22:44:00 DIS Emergency ERIKA LEWIS APRN [facility] ER STOMACH PAIN VOMITING [id number] 08/14/2016 04:53:00 08/14/2016 07:02:00 DIS Emergency DONNA MOHAMUD MD [facility] ER ABD PAIN [id number] 08/12/2016 13:32:00 08/12/2016 13:53:00 DIS Emergency ERIKA LEWIS APRN [facility] ER ABSCESS IN PELVIC AREA [id number] 08/10/2016 15:28:00 08/10/2016 17:04:00 DIS Emergency OR[place]O MCDUFFIE [facility] ER POSS MRSA IN PELVIC AREA [id number] 06/11/2016 23:33:00 06/12/2016 00:46:00 DIS Emergency ZOHREH HAYWARD DO [facility] ER POSS BRONCHITIS [id number] 03/01/2016 13:10:00 03/01/2016 13:28:00 DIS Emergency ORLANDO MCDUFFIE [facility] ER TUBE REMOVAL [id number] 02/25/2016 17:02:00 02/25/2016 18:03:00 DIS Emergency OR[place]O MCDUFFIE [facility] ER WOUND CHECK [id number] 02/22/2016 12:02:00 02/22/2016 15:23:00 DIS Emergency ERIKA LEWIS APRN [facility] ER ABCESS ON BUTTOCKS [id number] 02/18/2016 17:25:00 02/18/2016 18:34:00 DIS Emergency MYNOR GUILLAUME MD [facility] ER SKIN RASH/WOUND [id number] 12/11/2015 17:28:00 12/11/2015 19:48:00 DIS Emergency OR[place]O MCDUFFIE [facility] ER ABD PAIN [id number] 12/10/2015 09:39:00 12/10/2015 13:21:00 DIS Emergency DONNA MOHAMUD MD [facility] ER ABD PAIN/VOMITING [id number] 10/10/2015 07:47:00 10/10/2015 11:21:00 DIS Emergency MYNOR GUILLAUME MD [facility] ER ABD PAIN [id number] 10/08/2015 14:37:00 10/08/2015 16:38:00 DIS Emergency DONNA MOHAMUD MD [facility] ER ABD PAIN [id number] 10/04/2015 12:02:00 10/04/2015 15:05:00 DIS Emergency ORLANDO MCDUFFIE [facility] ER STOMACH PAIN [id number] 09/29/2015 08:43:00 09/29/2015 13:13:00 DIS Emergency MYNOR GUILLAUME MD [facility] ER ABD PAIN [id number] 09/29/2015 01:21:00 09/29/2015 02:43:00 DIS Emergency MARYSOL GORDON DO [facility] ER ABDOMINAL CRAMPS [id number] 09/05/2015 03:51:00 09/05/2015 06:10:00 DIS Emergency ZOHREH HAYWARD DO [facility] ER ABD PAIN [id number] 09/01/2015 21:17:00 09/01/2015 22:43:00 DIS Emergency ZOHREH HAYWARD DO [facility] ER NAUSEA/VOMITING [id number] 08/20/2015 16:18:00 08/21/2015 11:06:00 DIS Inpatient JASON LOPEZ MD [facility] 4TH HYPOKALEMIA HYPONATREMIA ABD PAIN [id number] 08/14/2015 13:12:00 08/14/2015 15:36:00 DIS Emergency ERIKA LEWIS EMISSION SPECIALIST [facility] ER VOMITING [id number] 05/20/2015 11:04:00 05/20/2015 13:53:00 DIS Emergency ERIKA LEWIS EMISSION SPECIALIST [facility] ER VOMITING [id number] 05/15/2015 16:05:00 05/15/2015 19:40:00 DIS Emergency ORLANDO MCDUFFIE [facility] ER N/V,ABD PAIN [id number] 05/10/2015 21:37:00 05/13/2015 10:55:00 DIS Inpatient JASON LOPEZ MD [facility] 4TH CYCLIC VOMITING [id number] 04/21/2015 13:36:00 04/21/2015 17:38:00 DIS Emergency ORLANDO MCDUFFIE [facility] ER VOMTITING [id number] 04/17/2015 16:18:00 04/17/2015 18:40:00 DIS Emergency ORLANDO MCDUFFIE [facility] ER VOMITING [id number] 04/13/2015 19:30:00 04/15/2015 11:55:00 DIS Inpatient JEAN NOYOLA MD [facility] SURGICAL INTRACTABLE N/V, DEHYDRATION [id number] 04/11/2015 11:02:00 04/11/2015 13:30:00 DIS Emergency ERIKA LEWIS APRN [facility] ER VOMITING [id number] 10/04/2014 10:43:00 10/04/2014 11:12:00 DIS Emergency BESS BARRETT MD [facility] ER COUGH/CONGESTION SORE THROAT [id number] 09/05/2014 17:37:00 09/05/2014 19:56:00 DIS Emergency DONNA MOHAMUD MD [facility] ER VOMTITING [id number] 12/18/2013 16:38:00 12/21/2013 15:50:00 DIS Inpatient JEAN NOYOLA MD [facility] 4TH INTRACTABLE VOMITING [id number] 11/30/2013 15:00:00 12/07/2013 14:45:00 DIS Inpatient JEAN NOYOLA MD [facility] 4TH INTRACTABLE VOMITING AND ABD PAIN UTI [id number] 11/29/2013 12:46:00 11/29/2013 16:59:00 DIS Emergency ERIKA LEWIS EMISSION SPECIALIST [facility] ER VOMITING [id number] 10/31/2013 15:12:00 11/02/2013 19:30:00 DIS Inpatient LEAH LEYVA MD [facility] 4TH CHRONIC ABD PAIN;NAUSEA/ VOMITING;BILIARY DYSKENISA [id number] 10/25/2013 08:26:00 10/25/2013 23:59:59 CLS Outpatient ANDERS GRAY APRN [facility] RAD NAUSEA/VOMITING ABDOMINAL PAIN [id number] 08/17/2013 22:59:00 08/18/2013 19:50:00 DIS Inpatient JEAN NOYOLA MD [facility] 4TH INTRACTABLE N/V, LEUKOCYTOSIS,ELECTROLYTE DISTURBA [id number] 08/17/2013 15:20:00 08/17/2013 18:30:00 DIS Emergency ERIKA LEWIS EMISSION SPECIALIST [facility] ER MULTIPLE COMPLAINTS [id number] 03/23/2013 16:10:00 03/23/2013 23:59:59 CLS Outpatient [id number] 07/20/2018 12:45:00 ACT Inpatient CASSY NI DO [facility] LDRP ABD PAIN [id number] 01/15/2016 12:41:00 Document Registration [id number] 09/05/2014 17:37:00 Document Registration [id number] 02/06/2011 18:18:00 Document Registration [id number] 08/14/2009 11:15:00 Document Registration [id number] 06/27/2009 10:07:00 Document Registration
[2018-07-20 13:17] LABS: BACTERIA,URINE NEGATIVE /HPF
[2018-07-20 13:24] LABS: AMPHETAMINE SCREEN, URINE NEGATIVE (NEGATIVE); BARBITURATE SCREEN URINE NEGATIVE (NEGATIVE); BENZODIAZEPINES SCREEN URINE NEGATIVE (NEGATIVE); CANNABINOID SCREEN, URINE POSITIVE (NEGATIVE); COCAINE SCREEN URINE NEGATIVE (NEGATIVE); METHADONE STAT NEGATIVE (NEGATIVE); METHAMPHETAMINE SCREEN URINE S NEGATIVE (NEGATIVE); OPIATE SCREEN URINE POSITIVE (NEGATIVE); OXYCODONE STAT NEGATIVE (NEGATIVE); PROPOXYPHENE STAT NEGATIVE (NEGATIVE); TRICYCLIC ANTIDEPRESSANTS SCRE NEGATIVE (NEGATIVE)
[2018-07-20] MEDS: D5 LR IV SOLUTION 1,000 ML IV SCH ×2 (13:50→20:06)
[2018-07-20] MEDS ORDERED: CATHETER FLUSH 10 ML SYR IV SCH (14:00)
[2018-07-20 14:51] LABS: BASOPHILS % (AUTO) 0 % (0-10); EOSINOPHILS % (AUTO) 0 % (0-10); HEMATOCRIT 30 % (35-52); HEMOGLOBIN 10.4 G/DL (11.5-16.0); LYMPHOCYTES # (AUTO) 1.9 X 10^3 (1.0-4.0); LYMPHOCYTES % (AUTO) 20 % (12-44); MEAN CORPUSCULAR HEMOGLOBIN 31 PG (25-34); MEAN CORPUSCULAR HGB CONC 34 G/DL (32-36); MEAN CORPUSCULAR VOLUME 91 FL (80-99); MEAN PLATELET VOLUME 10.1 FL (7.4-10.4); MONOCYTES # (AUTO) 0.5 X 10^3 (0.0-1.0); MONOCYTES % (AUTO) 6 % (0-12); NEUTROPHILS % (AUTO) 74 % (42-75); PLATELET COUNT 255 10^3/uL (130-400); RED BLOOD COUNT 3.36 10^6/uL (4.35-5.85); RED CELL DISTRIBUTION WIDTH 13.2 % (10.0-14.5); WHITE BLOOD COUNT 9.4 10^3/uL (4.3-11.0)
[2018-07-20] MEDS ORDERED: MISOPROSTOL 100 MCG (CYTOTEC) TAB PO NR (15:00)
[2018-07-20] MEDS ORDERED: PROMETHAZINE INJ 25 MG/ML (PHENERGAN) AMP IVP ONE (16:45)
[2018-07-20] MEDS ORDERED: FLU QUADRIvalent (5+ YOA) 2018-2019 (AFLURIA) 0.5 ML IM ONE (17:15)
[2018-07-20] MEDS ORDERED: HYDROmorphone 2 MG/ML VIAL (DILAUDID) ONE (18:15)
[2018-07-20] MEDS: HYDROmorphone 2 MG/ML VIAL (DILAUDID) IV PRN (18:22)
[2018-07-20] MEDS: MISOPROSTOL 100 MCG (CYTOTEC) TAB PO SCH ×2 (19:23→23:28)
[2018-07-21] VITALS (67 sets, daily range): BP systolic 92–144; BP diastolic 52–100
[2018-07-21] MEDS: HYDROmorphone 2 MG/ML VIAL (DILAUDID) IV PRN ×2 (00:32→05:26)
[2018-07-21] MEDS: D5 LR IV SOLUTION 1,000 ML IV SCH ×2 (05:29→09:12)
[2018-07-21] MEDS ORDERED: OXYTOCIN/NORMAL SALINE 500 ML IV SCH ×2 (07:28→17:38)
--- NOTE | 2018-07-21 08:28 | History & Physical-OB ---
OB - Chief Complaint & HPI Date/Time Date of Admission: Date of Admission: Jul 20, 2018 at 12:45 pm Date seen by a Provider: Jul 20, 2018 Time Seen by a Provider: 17:00 Chief Complaint/History OB-Reason for Admission/Chief: Induction of Labor Hx : 1 Hx Para: 0 Expected Date of Delivery: Aug 03, 2018 Gestational Age in Weeks: 38 Indication for induction: medical complication Other reason for admission: 22 yo at 38 weeks induction for severe IUGR, complicated by chronic opioid use, withdrawal cyclic vomiting syndrome and wasting. THC use in Admission Nurse Assessment Rev: Yes History of Labs O pos Antibody neg RNI RPR NR HBsAg NR HIV NR GC neg GBS neg Allergies and Home Medications Allergies Coded Allergies: No Known Drug Allergies (Unverified , 01/12/16) Home Medications [id number]/FA/Omega3/Dha/Fish Oil 1 Each Tab.chew, 2 EACH PO DAILY, (Reported) Patient Home Medication List Home Medication List Reviewed: Yes OB - History Hx of Present Care: Yes Ultrasounds: Abnormal US findings (Severe IUGR < 5th %tile) Obstetrical Complications: Growth Restriction Medical Complications: Other (cyclic vomitting, THC use in , opioid use in ) Delivery History Hx Blood Disorders: No Adverse Rxn to Tranfusion: No Patient Past Medical History Past medical history 1. Cyclic vomiting syndrome versus cannabis hyperemesis 2. History of exercised induced asthma 3. Chronic anxiety and depression 4. Candidiasis of the esophagus 5. Noncompliance with medical therapy 6. Cannabis abuse Past surgical history 1. Multiple EGDs 2. Appendectomy 3. Cholecystectomy 4. Laparoscopic paratubal cystectomies with removal of endometriosis Social History/Family History HIV/AIDS: No Recent Infectious Disease Expo: No Sexually Transmitted Disease: No Alcohol Use: Denies Use Recreational Drug Use: Yes (marijuana recently) 2nd Hand Smoke Exposure: Yes Immunizations Hepatitis A: No Hepatitis B: No Tetanus Booster (TDap): Less than 5yrs Date of Pneumonia Vaccine: Nov 12, 2013 Date of Influenza Vaccine: Sep 11, 2015 OB - Admission Exam Physical Exam Vitals: Vital Signs 07/21/18 07/21/18 07/21/18 02:00 04:20 06:50 Temp 97.9 Pulse 50 Resp 18 B/P (MAP) 106/66 (79) Pulse Ox 96 O2 Delivery Room Air HEENT: NCAT Heart: Rhythm Normal Lungs: Clear Abdomen: Gravid Extremities: Normal Reflexes: Normal Cervical Dilatation: Fingertip Effacement: 75% Station: -1 Membranes: Intact Heart Rate: 130's Accelerations: Accelerations Present Decelerations: No Decelerations Short Term Variability: 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 Variability: Average (6-25) Contractions on Admission: >10 Minutes Apart Intensity: Mild Dahl Scoring Tool (Modified) Dilation (cm): 0/Closed (0) Effacement (%): 51-79% (2) Descent/Station: -1,0 (2) Cervix Consistency: Soft (2) Cervix Position: Anterior (2) Labs Laboratory Tests Test 07/20/18 12:50 07/20/18 14:39 Range/Units Urine Color YELLOW Urine Clarity CLEAR Urine pH 8 5-9 Urine Specific [place] 1.010 L 1.016-1.022 Urine Protein NEGATIVE NEGATIVE Urine Glucose (UA) NEGATIVE NEGATIVE Urine Ketones NEGATIVE NEGATIVE Urine Nitrite NEGATIVE NEGATIVE Urine Bilirubin NEGATIVE NEGATIVE Urine Urobilinogen NORMAL NORMAL MG/DL Urine Leukocyte Esterase NEGATIVE NEGATIVE Urine RBC (Auto) NEGATIVE NEGATIVE Urine RBC NONE /HPF Urine WBC NONE /HPF Urine Squamous Epithelial Cells 5-10 /HPF Urine Crystals NONE /LPF Urine Bacteria NEGATIVE /HPF Urine Casts NONE /LPF Urine Mucus NEGATIVE /LPF Urine Culture Indicated NO Urine Opiates Screen POSITIVE H NEGATIVE Urine Oxycodone Screen NEGATIVE NEGATIVE Urine Methadone Screen NEGATIVE NEGATIVE Urine Propoxyphene Screen NEGATIVE NEGATIVE Urine Barbiturates Screen NEGATIVE NEGATIVE Ur Tricyclic Antidepressants Screen NEGATIVE NEGATIVE Urine Phencyclidine Screen NEGATIVE NEGATIVE Urine Amphetamines Screen NEGATIVE NEGATIVE Urine Methamphetamines Screen NEGATIVE NEGATIVE Urine Benzodiazepines Screen NEGATIVE NEGATIVE Urine Cocaine Screen NEGATIVE NEGATIVE Urine Cannabinoids Screen POSITIVE H NEGATIVE White Blood Count 9.4 4.3-11.0 10^3/uL Red Blood Count 3.36 L 4.35-5.85 10^6/uL Hemoglobin 10.4 L 11.5-16.0 G/DL Hematocrit 30 L 35-52 % Mean Corpuscular Volume 91 80-99 FL Mean Corpuscular Hemoglobin 31 25-34 PG Mean Corpuscular Hemoglobin Concent 34 32-36 G/DL Red Cell Distribution Width 13.2 10.0-14.5 % Platelet Count 255 130-400 10^3/uL Mean Platelet Volume 10.1 7.4-10.4 FL Neutrophils (%) (Auto) 74 42-75 % Lymphocytes (%) (Auto) 20 12-44 % Monocytes (%) (Auto) 6 0-12 % Eosinophils (%) (Auto) 0 0-10 % Basophils (%) (Auto) 0 0-10 % Neutrophils # (Auto) 7.0 1.8-7.8 X 10^3 Lymphocytes # (Auto) 1.9 1.0-4.0 X 10^3 Monocytes # (Auto) 0.5 0.0-1.0 X 10^3 Eosinophils # (Auto) 0.0 0.0-0.3 10^3/uL Basophils # (Auto) 0.0 0.0-0.1 10^3/uL OB - Assessment/Plan/Diagnosis Assessment Assessment: induction of labor Admission Dx 22 yo @ 38 weeks Severe IUGR < 5th %tile Cyclic vomiting syndrome versus cannabis hyperemesis Cannabis abuse Opioid use in Admission Status: Inpatient Order (span 2 midnights) Reason for Inpatient Admission: induction of labor Plan Plan: Induction Induction Method: per Misoprostol Protocol CASSY NI DO Jul 21, 2018 8:28 am
[2018-07-21] MEDS ORDERED: SUFENTA 0.6MCG/ML BUPIVA 0.125 100 ML ONE (08:51)
[2018-07-21] MEDS ORDERED: fentaNYL INJECTION 100 MCG/2 ML AMP ONE (09:07)
[2018-07-21] MEDS ORDERED: BUPIVACAINE 0.25% 30 ML (SENSORCAINE) VIAL ONE (09:07)
[2018-07-21] MEDS ORDERED: LACTATED RINGERS 1,000 ML IV ONE (10:27)
[2018-07-21] MEDS ORDERED: NALOXONE 0.4 MG/ML 1 ML (NARCAN) VIAL IV PRN (10:30)
[2018-07-21] MEDS ORDERED: ONDANSETRON 4 MG/2 ML (SDV) Z0FRAN IV PRN (10:30)
[2018-07-21] MEDS ORDERED: diphenhydrAMINE 50 MG/ML INJ (BENADRYL) IV PRN (10:30)
[2018-07-21] MEDS ORDERED: CATHETER FLUSH 10 ML SYR IV PRN (10:30)
[2018-07-21] MEDS ORDERED: EPIDURAL (SUFENTA 0.6MCG/ML BUPIVA 0.125%) 100 ML BAG EPI SCH (10:30)
[2018-07-21] MEDS ORDERED: LIDOCAINE/EPI 2% 1:200,00 (XYLOCAINE) 10 ML VIAL ONE (17:10)
[2018-07-21] MEDS ORDERED: LIDOCAINE/EPI 2% 1:200,00 (XYLOCAINE) 10 ML VIAL INJ ONE (17:20)
[2018-07-21] MEDS ORDERED: DIBUCAINE (NUPERCAINAL) 1% OINT 30 GM TOP PRN (17:45)
[2018-07-21] MEDS ORDERED: MEASLES,MUMPS,RUBELLA 1 EA INJ SQ ONE (17:45)
[2018-07-21] MEDS ORDERED: TETANUS,DIPTH,PERTUSS P/F (BOOSTRIX) 0.5 ML VIAL IM ONE (17:45)
--- NOTE | 2018-07-21 17:45 | OB Labor & Delivery Record ---
L&D History Date of Service Date of Service: Jul 21, 2018 History Expected Date of Delivery: Aug 03, 2018 Gestational Age in Weeks: 38 Hx : 1 Hx Para: 0 Complications Events: Labor Augmentation Operative Indications (Cesarea: N/A-Vaginal Delivery Intrapartal Events: Extnded Bradycardia Other Complications Severe IUGR, Hx of substance abuse L&D Stage1 Stage One Onset of Labor - Date: Jul 21, 2018 Monitors and Tracing Monitor Mode: External Heart Rate: 130 Monitor Accelerations: Uniform Monitor Decelerations: Variable Station: 0 Shelter Variability: Average (6-10) Short Term Variability: Present Presentation: Vertex Vital Signs VS - Last 72 Hours, by Label 07/20/18 07/20/18 07/20/18 07/20/18 12:30 15:30 16:00 16:30 Temp 96.7 98.2 Pulse 99 83 74 99 Resp 16 18 B/P (MAP) 123/79 (94) 130/81 (97) 130/81 (97) 125/61 (82) O2 Delivery Room Air Room Air Room Air Room Air 07/20/18 07/20/18 07/20/18 07/20/18 17:00 17:30 18:00 18:30 Pulse 78 69 70 77 B/P (MAP) 117/77 (90) 109/51 (70) 125/62 (83) 134/92 (106) O2 Delivery Room Air Room Air Room Air Room Air 07/20/18 07/20/18 07/20/18 07/20/18 19:00 19:30 20:00 20:30 Temp 98.2 Pulse 69 61 52 57 Resp 16 16 16 B/P (MAP) 93/52 (66) 100/58 (72) 92/53 (66) 83/46 (58) Pulse Ox 99 99 92 O2 Delivery Room Air Room Air Room Air Room Air 07/20/18 07/20/18 07/20/18 07/20/18 21:00 21:30 22:00 22:30 Pulse 60 63 63 62 Resp 16 16 20 20 B/P (MAP) 82/52 (62) 88/49 (62) 111/73 (86) 106/61 (76) O2 Delivery Room Air Room Air Room Air Room Air 07/20/18 07/20/18 07/21/1810/18 23:00 23:30 00:00 01:00 Pulse 65 57 64 58 Resp 20 20 20 20 B/P (MAP) 106/68 (81) 97/52 (67) 124/93 (103) 115/72 (86) O2 Delivery Room Air Room Air Room Air Room Air 07/21/18 07/21/18 07/21/18 07/21/18 01:30 02:00 02:30 03:00 Pulse 51 57 59 51 Resp 20 20 20 20 B/P (MAP) 98/61 (73) 97/54 (68) 95/53 (67) 106/63 (77) Pulse Ox 96 O2 Delivery Room Air Room Air Room Air Room Air 07/21/18 07/21/18 07/21/18 07/21/18 03:30 04:00 04:20 04:50 Temp 97.9 Pulse 54 57 57 61 Resp 20 18 18 18 B/P (MAP) 100/57 (71) 92/53 (66) 98/52 (67) 97/55 (69) O2 Delivery Room Air Room Air Room Air Room Air 07/21/18 07/21/18 07/21/18 07/21/18 05:20 05:50 06:20 06:50 Pulse 66 61 57 50 Resp 18 18 18 18 B/P (MAP) 123/86 (98) 99/53 (68) 96/54 (68) 106/66 (79) O2 Delivery Room Air Room Air Room Air Room Air 07/21/18 07/21/18 07/21/18 07/21/18 07:20 08:00 08:15 08:30 Temp 97.0 Pulse 52 51 60 54 Resp 18 B/P (MAP) 109/77 (88) 96/63 (74) 138/100 (113) 109/69 (82) O2 Delivery Room Air Room Air Room Air Room Air 07/21/18 07/21/18 07/21/18 07/21/18 08:45 09:00 09:15 09:30 Pulse 48 68 74 67 Resp 18 B/P (MAP) 124/87 (99) 99/58 (72) 136/82 (100) 126/70 (88) O2 Delivery Room Air Room Air Room Air Room Air 07/21/18 07/21/18 07/21/1807/21/18 09:36 09:39 09:42 09:45 Temp 96.7 Pulse 76 81 60 77 B/P (MAP) 118/58 (78) 120/85 (97) 104/60 (75) 107/68 (81) Pulse Ox 99 99 99 99 O2 Delivery Room Air Room Air Room Air Room Air 07/21/18 07/21/18 07/21/18 07/21/18 09:48 09:50 09:55 10:00 Pulse 68 57 56 72 Resp 18 B/P (MAP) 114/62 (79) 100/55 (70) 97/53 (68) 101/60 (74) Pulse Ox 99 97 97 98 O2 Delivery Room Air Room Air Room Air Room Air 07/21/18 07/21/18 07/21/18 07/21/18 10:05 10:10 10:15 10:20 Pulse 71 70 86 72 Resp 16 B/P (MAP) 107/54 (71) 113/72 (86) 112/63 (79) 102/70 (81) Pulse Ox 98 98 98 98 O2 Delivery Room Air Room Air Room Air Room Air 07/21/18 07/21/18 07/21/18 07/21/18 10:25 10:30 10:45 11:00 Pulse 52 52 52 67 Resp 16 B/P (MAP) 100/58 (72) 100/58 (72) 99/69 (79) 119/58 (78) Pulse Ox 98 O2 Delivery Room Air Room Air Room Air Room Air 07/21/18 07/21/18 07/21/18 07/21/18 11:15 11:30 11:45 12:00 Pulse 59 67 58 B/P (MAP) 106/63 (77) 103/74 (84) 102/69 (80) O2 Delivery Room Air Room Air Room Air Room Air 07/21/18 07/21/18 07/21/18 07/21/18 12:15 12:30 12:45 13:00 Temp 97.5 Pulse 70 58 65 65 B/P (MAP) 105/64 (78) 101/62 (75) 103/66 (78) 104/69 (81) O2 Delivery Room Air Room Air Room Air Room Air Rupture of Membranes Spontaneous Ruture of Membrane: No Amniotic Membrane Rupture Time: 0810 Amniotic Membrane Fluid Desc.: Clear Vaginal Bleeding Description: Normal Show Induction/Anesthesia Epidural Cath Placement - Time: 925 Progress/Notes Patient administered Cytotec for cervical ripening overnight, overnight she did receive 2 doses of 1 mg IV Dilaudid. Artificial rupture membranes and Pitocin augmentation was starting in the morning at approximately 730 a.m. Clear fluid was noted at time of rupture. Using my protocol we reached a maximum dose of 12 mU/m. She was able to progress to complete and +2 station with an epidural for analgesia. L&D Stage2 Stage Two Stage II Date: Jul 21, 2018 Monitors and Tracing Monitor Mode: External Heart Rate: 130 Monitor Decelerations: Variable Shelter Variability: Minimal (3-5) Short Term Variability: Present Position: Right Occiput Anterior Presentation: Vertex Signs of Distress by FHT Signs of Distress Deep variable decelerations into the 60s with sharp return to baseline. Tight nuchal cord reduced 1 at delivery the head. Cord Descript/Complications Cord Vessel Description: 3 Vessels Delivery Type Infant Delivery Method: Low Vacuum Extraction Anterior Shoulder: Right Episiotomy/Perineal Laceration Laceraction(s)/Extensions: Yes Episiotomy Description: Midline Degree (describe repair) The patient was able to progress the vertex to +2 to +3 station there is a small crown noted however heart tones remained in the 60s a every week vacuum extractor was placed on them mid sagittal suture line 500 mmHg is applied to this handheld device. The patient is encouraged to push and with gentle extension the infant's head is delivered over a midline episiotomy. There is a nuchal cord that was tight that was reduced 1 anterior posterior shoulders were delivered and the is and brought onto the maternal abdomen. The cord is doubly clamped and cut. Midline episiotomy was then repaired using 3-0 rapide and 2-0 Vicryl suture in usual fashion. Condition of Infant Delivery Notes Live male infant weighing 4 lbs. 14 oz. Apgars pending Condition of Condition of : Living Exam: No Observed Abnormalities Resuscitation Resuscitation: N/A - Spontaneous Resp L&D Stage3 Stage Three Stage III Date: Jul 21, 2018 Pictocin Pitocin Administration mu/min: 12 Pitocin ml/hr: 12 Pitocin Administration Comment: 30 milliunits wide open at delivery of placenta Placenta Delivery Placenta Delivery: Spontaneous Delivery Summary Summary Estimated blood loss (mL): 300 Attending at delivery: Cassy Ni DO Condition of Delivery Examined: Cervix Examined, Uterus Explored Post Hemorrhage: No Condition of Mother Stable Condition of Infant (s) Stable CASSY NI DO Jul 21, 2018 5:45 pm
[2018-07-21] MEDS: WITCH HAZEL(TUCKS) 40 EA JAR TOP PRN (18:11)
[2018-07-21] MEDS: BENZOCAINE/MENTHOL (DERMOPLAST) 56 ML CAN TP PRN (18:11)
[2018-07-21] MEDS: IBUPROFEN 600 MG (MOTRIN) TAB PO SCH (18:11)
[2018-07-21] MEDS: HYDROcodone/APAP 5 MG/325 MG (LORTAB) TAB PO PRN (21:04)
[2018-07-21] MEDS ORDERED: CATHETER FLUSH 10 ML SYR IV SCH (22:00)
[2018-07-22 00:45] VITALS: BP 95/62
[2018-07-22] MEDS: IBUPROFEN 600 MG (MOTRIN) TAB PO SCH ×5 (02:03→23:53)
[2018-07-22] MEDS: HYDROcodone/APAP 5 MG/325 MG (LORTAB) TAB PO PRN ×4 (04:51→19:58)
[2018-07-22 06:01] LABS: BASOPHILS % (AUTO) 0 % (0-10); EOSINOPHILS # (AUTO) 0.1 10^3/uL (0.0-0.3); EOSINOPHILS % (AUTO) 1 % (0-10); HEMATOCRIT 30 % (35-52); HEMOGLOBIN 10.5 G/DL (11.5-16.0); LYMPHOCYTES # (AUTO) 2.9 X 10^3 (1.0-4.0); LYMPHOCYTES % (AUTO) 26 % (12-44); MEAN CORPUSCULAR HEMOGLOBIN 31 PG (25-34); MEAN CORPUSCULAR HGB CONC 35 G/DL (32-36); MEAN CORPUSCULAR VOLUME 91 FL (80-99); MEAN PLATELET VOLUME 9.8 FL (7.4-10.4); MONOCYTES # (AUTO) 0.7 X 10^3 (0.0-1.0); MONOCYTES % (AUTO) 6 % (0-12); NEUTROPHILS # (AUTO) 7.4 X 10^3 (1.8-7.8); NEUTROPHILS % (AUTO) 66 % (42-75); PLATELET COUNT 226 10^3/uL (130-400); RED BLOOD COUNT 3.36 10^6/uL (4.35-5.85); RED CELL DISTRIBUTION WIDTH 13.1 % (10.0-14.5); WHITE BLOOD COUNT 11.2 10^3/uL (4.3-11.0)
[2018-07-22 06:02] VITALS: BP 112/78
--- NOTE | 2018-07-22 08:02 | Postpartum Progress Note ---
Note Note Day # 1 Subjective: Patient is without complaints. Ambulating, voiding. Tolerating a regular diet without nausea or vomiting. Normal lochia. Pain is well controlled with oral pain medications. But starting to have "stomach" pains that she usually gets with opioid withdrawals. She is requesting something more for pain, but has just received 2-5/325 lortab. Objective: Vital Sign - Last 24 Hours 07/21/18 07/21/18 07/21/18 07/21/18 08:15 08:30 08:45 09:00 Pulse 60 54 48 68 B/P (MAP) 138/100 (113) 109/69 (82) 124/87 (99) 99/58 (72) O2 Delivery Room Air Room Air Room Air Room Air 07/21/18 07/21/18 07/21/18 07/21/18 09:15 09:30 09:36 09:39 Pulse 74 67 76 81 Resp 18 B/P (MAP) 136/82 (100) 126/70 (88) 118/58 (78) 120/85 (97) Pulse Ox 99 99 O2 Delivery Room Air Room Air Room Air Room Air 07/21/18 07/21/18 07/21/18 07/21/18 09:42 09:45 09:48 09:50 Temp 96.7 Pulse 60 77 68 57 Resp 18 B/P (MAP) 104/60 (75) 107/68 (81) 114/62 (79) 100/55 (70) Pulse Ox 99 99 99 97 O2 Delivery Room Air Room Air Room Air Room Air 07/21/18 07/21/18 07/21/18 07/21/18 09:55 10:00 10:05 10:10 Pulse 56 72 71 70 B/P (MAP) 97/53 (68) 101/60 (74) 107/54 (71) 113/72 (86) Pulse Ox 97 98 98 98 O2 Delivery Room Air Room Air Room Air Room Air 07/21/18 07/21/18 07/21/18 07/21/18 10:15 10:20 10:25 10:30 Pulse 86 72 52 52 Resp 16 16 B/P (MAP) 112/63 (79) 102/70 (81) 100/58 (72) 100/58 (72) Pulse Ox 98 98 98 O2 Delivery Room Air Room Air Room Air Room Air 07/21/18 07/21/18 07/21/18 07/21/18 10:45 11:00 11:15 11:30 Pulse 52 67 59 67 B/P (MAP) 99/69 (79) 119/58 (78) 106/63 (77) 103/74 (84) O2 Delivery Room Air Room Air Room Air Room Air 07/21/18 07/21/18 07/21/18 07/21/18 11:45 12:00 12:15 12:30 Pulse 58 70 58 B/P (MAP) 102/69 (80) 105/64 (78) 101/62 (75) O2 Delivery Room Air Room Air Room Air Room Air 07/21/18 07/21/18 07/21/18 07/21/18 12:45 13:00 13:15 13:30 Temp 97.5 Pulse 65 65 71 71 B/P (MAP) 103/66 (78) 104/69 (81) 98/66 (77) 107/69 (82) O2 Delivery Room Air Room Air Room Air Room Air 07/21/18 07/21/18 07/21/18 07/21/18 13:45 14:00 14:15 14:30 Pulse 67 75 67 64 Resp 16 B/P (MAP) 121/55 (77) 139/64 (89) 108/63 (78) 102/72 (82) O2 Delivery Room Air Room Air Room Air Room Air 07/21/18 07/21/18 07/21/18 07/21/18 14:45 15:00 15:15 15:30 Temp 97.5 Pulse 67 53 69 64 Resp 16 B/P (MAP) 112/80 (91) 105/71 (82) 98/63 (75) 92/60 (71) O2 Delivery Room Air Room Air Room Air Room Air 07/21/18 07/21/18 07/21/18 07/21/18 15:45 16:00 16:15 16:30 Temp 97.3 Pulse 67 64 65 74 Resp 16 B/P (MAP) 103/65 (78) 103/67 (79) 134/63 (86) 130/81 (97) O2 Delivery Room Air Room Air Room Air Room Air 07/21/18 07/21/18 07/21/18 07/21/18 16:45 17:00 17:15 17:39 Pulse 63 75 81 B/P (MAP) 125/68 (87) 130/69 (89) 124/75 (91) O2 Delivery Room Air Room Air Room Air Room Air 07/21/18 07/21/18 07/21/18 07/21/18 18:11 18:32 18:39 18:54 Pulse 69 74 71 76 Resp 16 B/P (MAP) 140/63 (88) 144/74 (97) 124/78 (93) 111/78 (89) O2 Delivery Room Air Room Air Room Air Room Air 07/21/18 07/22/18 07/22/18 19:49 00:45 06:02 Temp 99.0 98.4 98.3 Pulse 72 56 43 Resp 18 18 18 B/P (MAP) 106/72 (83) 95/62 (73) 112/78 (89) Pulse Ox 100 98 98 O2 Delivery Room Air Room Air Room Air Intake and Output 07/21/18 07/21/18 07/22/18 15:00 23:00 07:00 Intake Total 1000 ml 1500 ml Output Total 1700 ml Balance 1000 ml -200 ml Physical Exam: General - Alert and oriented, no apparent distress Abdomen - Soft, appropriately tender to palpation, non-distended, fundus firm at umbilicus Extremities - no edema, negative Alan's bilaterally Assessment: 22 yo PPD 1 VAVD Severe IUGR < 5th %tile Cyclic vomiting syndrome versus cannabis hyperemesis Cannabis abuse Opioid use in Plan: Routine care. Encourage breast feeding. Encourage ambulation. Ferrous sulfate supplementation. Plan for discharge tomorrow Vitals - Labs Vital Signs - I&O Vital Signs Date Time Temp Pulse Resp B/P (MAP) Pulse Ox O2 Delivery O2 Flow Rate FiO2 07/22/18 06:02 98.3 43 18 112/78 (89) 98 Room Air 07/22/18 00:45 98.4 56 18 95/62 (73) 98 Room Air 07/21/18 19:49 99.0 72 18 106/72 (83) 100 Room Air 07/21/18 18:54 76 111/78 (89) Room Air 07/21/18 18:39 71 124/78 (93) Room Air 07/21/18 18:32 74 16 144/74 (97) Room Air 07/21/18 18:11 69 140/63 (88) Room Air 07/21/18 17:39 81 124/75 (91) Room Air 07/21/18 17:15 75 130/69 (89) Room Air 07/21/18 17:00 63 125/68 (87) Room Air 07/21/18 16:45 Room Air 07/21/18 16:30 97.3 74 16 130/81 (97) Room Air 07/21/18 16:15 65 134/63 (86) Room Air 07/21/18 16:00 64 103/67 (79) Room Air 07/21/18 15:45 67 103/65 (78) Room Air 07/21/18 15:30 64 92/60 (71) Room Air 07/21/18 15:15 97.5 69 16 98/63 (75) Room Air 07/21/18 15:00 53 105/71 (82) Room Air 07/21/18 14:45 67 112/80 (91) Room Air 07/21/18 14:30 64 102/72 (82) Room Air 07/21/18 14:15 67 108/63 (78) Room Air 07/21/18 14:00 75 139/64 (89) Room Air 07/21/18 13:45 67 16 121/55 (77) Room Air 07/21/18 13:30 71 107/69 (82) Room Air 07/21/18 13:15 71 98/66 (77) Room Air 07/21/18 13:00 97.5 65 104/69 (81) Room Air 07/21/18 12:45 65 103/66 (78) Room Air 07/21/18 12:30 58 101/62 (75) Room Air 07/21/18 12:15 70 105/64 (78) Room Air 07/21/18 12:00 Room Air 07/21/18 11:45 58 102/69 (80) Room Air 07/21/18 11:30 67 103/74 (84) Room Air 07/21/18 11:15 59 106/63 (77) Room Air 07/21/18 11:00 67 119/58 (78) Room Air 07/21/18 10:45 52 99/69 (79) Room Air 07/21/18 10:30 52 100/58 (72) 98 Room Air 07/21/18 10:25 52 16 100/58 (72) Room Air 07/21/18 10:20 72 102/70 (81) 98 Room Air 07/21/18 10:15 86 16 112/63 (79) 98 Room Air 07/21/18 10:10 70 113/72 (86) 98 Room Air 07/21/18 10:05 71 107/54 (71) 98 Room Air 07/21/18 10:00 72 101/60 (74) 98 Room Air 07/21/18 09:55 56 97/53 (68) 97 Room Air 07/21/18 09:50 57 18 100/55 (70) 97 Room Air 07/21/18 09:48 68 114/62 (79) 99 Room Air 07/21/18 09:45 96.7 77 107/68 (81) 99 Room Air 07/21/18 09:42 60 104/60 (75) 99 Room Air 07/21/18 09:39 81 120/85 (97) 99 Room Air 07/21/18 09:36 76 118/58 (78) 99 Room Air 07/21/18 09:30 67 18 126/70 (88) Room Air 07/21/18 09:15 74 136/82 (100) Room Air 07/21/18 09:00 68 99/58 (72) Room Air 07/21/18 08:45 48 124/87 (99) Room Air 07/21/18 08:30 54 109/69 (82) Room Air 07/21/18 08:15 60 138/100 (113) Room Air I & O 07/22/18 07:00 Intake Total 2500 ml Output Total 1700 ml Balance 800 ml Labs Laboratory Tests 07/22/18 05:45: White Blood Count 11.2H, Red Blood Count 3.36L, Hemoglobin 10.5L, Hematocrit 30L , Mean Corpuscular Volume 91, Mean Corpuscular Hemoglobin 31, Mean Corpuscular Hemoglobin Concent 35, Red Cell Distribution Width 13.1, Platelet Count 226, Mean Platelet Volume 9.8, Neutrophils (%) (Auto) 66, Lymphocytes (%) (Auto) 26, Monocytes (%) (Auto) 6, Eosinophils (%) (Auto) 1, Basophils (%) (Auto) 0, Neutrophils # (Auto) 7.4, Lymphocytes # (Auto) 2.9, Monocytes # (Auto) 0.7, Eosinophils # (Auto) 0.1, Basophils # (Auto) 0.0 CASSY NI DO Jul 22, 2018 8:02 am
--- NOTE | 2018-07-22 08:05 | Discharge Inst-Women's Service ---
Discharge Inst-Women's Serv Depart Medication/Instructions New, Converted or Re-Newed RX: RX on Chart Final Diagnosis 22 yo PPD 2 VAVD Severe IUGR < 5th %tile Cyclic vomiting syndrome versus cannabis hyperemesis Cannabis abuse Opioid use in Consults/Follow Up Additional Follow Up: Yes Orders/Referrals Dr. Ni in 6 weeks. She should get into [facility] Suboxone clinic for management of chronic opioid use SUSAN to help with management of chronic pain from withdrawal. Activity Activity: Activity as Tolerated Driving Instructions: No Driving for 1 Week (Do not drive while taking narcotic pain meds) NO SMOKING: NO SMOKING Nothing Inside Vagina: No Douching, No [place], No Tampons Diet Discharge Diet: No Restrictions Symptoms to Report to : Bleeding Excessive, Pain Increased, Fever Over 101 Degrees F, Vaginal Bleeding Increase, Questions/Concerns For Any Problems or Questions: Contact Your Physician CASSY NI DO Jul 22, 2018 8:05 am
[2018-07-22] MEDS ORDERED: IBUP-844 PO (08:07)
[2018-07-22] MEDS ORDERED: FERR325T18 PO (08:07)
[2018-07-22] MEDS ORDERED: DOCU100C37 PO (08:07)
[2018-07-22] MEDS ORDERED: ACHD5005 PO (08:07)
[2018-07-22 08:14] VITALS: BP 117/72
[2018-07-22] MEDS: DOCUSATE SODIUM 100 MG (COLACE) CAP PO SCH ×2 (08:24→21:24)
[2018-07-22] MEDS: PRENATAL VITAMIN 1 EA TAB PO SCH (08:24)
[2018-07-22] MEDS: FERROUS SULF 325 MG (IRON) TAB PO SCH (08:24)
--- NOTE | 2018-07-22 08:57 | Anesthesia-Regional Post-Op ---
Regional Patient Condition Mental Status: Alert, Oriented x3 Circulation: Same as Pre-Op Headache: Absent Sensation: Full Recovery Motor Block: Absent Post Op Complications Complications None Follow Up Care/Instructions Patient Instructions None needed. Anesthesia/Patient Condition Patient is doing well, no complaints, stable vital signs, no apparent adverse anesthesia problems. No complications reported per nursing. ADITYA STALEY CRNA Jul 22, 2018 08:57
[2018-07-22] MEDS ORDERED: ONDANSETRON 8 MG (ZOFRAN) ORAL DISSOLVE TAB PO PRN (11:00)
[2018-07-22 13:00] VITALS: BP 119/81
[2018-07-22 15:45] VITALS: BP 108/72
[2018-07-22] MEDS ORDERED: MEASLES,MUMPS,RUBELLA 1 EA INJ ONE (15:51)
[2018-07-22] MEDS ORDERED: FLU QUADRIvalent (5+ YOA) 2018-2019 (AFLURIA) 0.5 ML IM ONE (15:52)
[2018-07-22] MEDS ORDERED: TETANUS,DIPTH,PERTUSS P/F (BOOSTRIX) 0.5 ML VIAL IM ONE (15:52)
[2018-07-22 20:00] VITALS: BP 126/90
[2018-07-23] MEDS: HYDROcodone/APAP 5 MG/325 MG (LORTAB) TAB PO PRN ×2 (02:36→08:47)
[2018-07-23 02:38] VITALS: BP 96/63
[2018-07-23] MEDS: IBUPROFEN 600 MG (MOTRIN) TAB PO SCH ×2 (06:04→11:38)
--- NOTE | 2018-07-23 08:16 | Postpartum Progress Note ---
Note Note Day # 2 Subjective: Patient is without complaints. Ambulating, voiding. Tolerating a regular diet without nausea or vomiting. Normal lochia. Pain is well controlled with oral pain medications Objective: Vital Signs 07/23/18 02:38 Temp 97.3 Pulse 70 Resp 18 B/P (MAP) 96/63 (74) Pulse Ox 100 O2 Delivery Room Air Physical Exam: General - Alert and oriented, no apparent distress Abdomen - Soft, appropriately tender to palpation, non-distended, fundus firm at umbilicus Extremities - no edema, negative Alan's bilaterally Assessment: 22 yo PPD 1 VAVD Severe IUGR < 5th %tile Cyclic vomiting syndrome versus cannabis hyperemesis Cannabis abuse Opioid use in Plan: Routine care. Encourage breast feeding. Encourage ambulation. Ferrous sulfate supplementation. Plan for discharge today Vitals - Labs Vital Signs - I&O Vital Signs Date Time Temp Pulse Resp B/P (MAP) Pulse Ox O2 Delivery O2 Flow Rate FiO2 07/23/18 02:38 97.3 70 18 96/63 (74) 100 Room Air 07/22/18 20:00 98.2 86 20 126/90 (102) 97 Room Air 07/22/18 15:45 98.2 75 18 108/72 (84) 98 Room Air 07/22/18 13:00 98.2 93 18 119/81 (94) 97 Room Air CASSY NI DO Jul 23, 2018 8:16 am
[2018-07-23 08:30] VITALS: BP 95/65
[2018-07-23] MEDS: FERROUS SULF 325 MG (IRON) TAB PO SCH (08:46)
[2018-07-23] MEDS: DOCUSATE SODIUM 100 MG (COLACE) CAP PO SCH (08:46)
[2018-07-23] MEDS: PRENATAL VITAMIN 1 EA TAB PO SCH (08:46)
[2018-07-23 11:27] VITALS: BP 115/75
[2018-07-23] MEDS: BENZOCAINE/MENTHOL (DERMOPLAST) 56 ML CAN TP PRN (11:50)
[2018-07-23] MEDS: WITCH HAZEL(TUCKS) 40 EA JAR TOP PRN (11:50)
[2018-07-23 13:00] VITALS: BP 115/75
--- NOTE | 2018-07-29 05:44 | DISCHARGE SUMMARY ---
DATE OF SERVICE: ADMISSION DIAGNOSES: 1. 22-year-old G1, P0 at 38 weeks gestation. 2. Severe IUGR less than 5th percentile. 3. Cyclic vomiting syndrome versus cannabis hyperemesis. 4. History of cannabis abuse. 5. Opiate use in . DISCHARGE DIAGNOSES: 1. 22-year-old G1, P0 at 38 weeks gestation. 2. Severe IUGR less than 5th percentile. 3. Cyclic vomiting syndrome versus cannabis hyperemesis. 4. History of cannabis abuse. 5. Opiate use in . 6. day #1, vacuum assisted vaginal delivery. ATTENDING PHYSICIAN: Dr. Cassy Ni. HOSPITALIST SERVICE: [facility]. HOSPITAL COURSE: Please see admission H and P from 07/21/2018 for complete details pertaining to the patient's admission presentation and plan of care. Please see delivery summary from 07/21/2018 for complete details pertaining to the patient's delivery in detail. course of this patient was fairly routine with the exception of difficulty controlling pain. She was complaining of severe abdominal epigastric pain similar to the ones that she had previous to delivery. She believes that she needed stronger pain medications. She was given [place] 5/325 and told that I could not increase her dosing any further due to her withdrawals from chronic opioid use and cyclic vomiting syndrome. Other than that the patient clinically appeared within normal limits with the blood pressures and vital signs are within normal limits. Her hemoglobin dropped to 10.5 on the borderline of anemia. Her uterus fundus was firm and below the umbilicus. On day #2, the patient continued to do well with the exception of complaining about pain medications and again asked for an increase in pain medication. I discussed with the patient at that point setting up followup with an opioid abuse clinic in [facility] to discuss weaning her off of this. She seemed agreeable at the time of social work consultation. The patient was discharged on day #2 due to clinical stability. She was given routine precautions and given the following medications including Motrin 600 mg 1 p.o. q.6 hours p.r.n. as need for pain #80, [place] 5/325 one p.o. q.4 hours p.r.n. as needed for pain, #50. She was given Colace 100 mg 1 p.o. b.i.d. p.r.n. as needed for constipation, #40 and told to continue ferrous sulfate 325 mg #60. She was also told to continue her vitamins. Discharge facilitated at that point without further difficulty. After all the patient's questions were answered pertaining to follow up, recommendations for followup with opioid abuse clinic as well as precautions and administration of medications. Job ID: [id number] DocumentID: [id number] Dictated Date: 07/28/2018 20:23:24 Import Export Manager Date: 07/29/2018 05:43:38 Dictated By: CASSY NI DO
== END 2018-07-23 13:00 | disposition home or self-care (01) | DRG 806 ==
LOC: LDRP 12:45
PROVIDERS: ADMIT Obstetrics & Gynecology; ATTEND Obstetrics & Gynecology
PROC: 3E0DXGC Introduction of Other Therapeutic Substance into Mouth and Pharynx, External Approach (ICD-10-PCS; 2018-07-20)
PROC: 10D07Z6 Extraction of Products of Conception, Vacuum, Via Natural or Artificial Opening (ICD-10-PCS; principal; 2018-07-21)
PROC: 0W8NXZZ Division of Female Perineum, External Approach (ICD-10-PCS; 2018-07-21)
DX: O36.5930 Maternal care for other known or suspected poor fetal growth, third trimester, not applicable or unspecified (principal); O99.324 Drug use complicating childbirth; F11.10 Opioid abuse, uncomplicated; F12.10 Cannabis abuse, uncomplicated; O21.8 Other vomiting complicating pregnancy; O76 Abnormality in fetal heart rate and rhythm complicating labor and delivery; O69.1XX0 Labor and delivery complicated by cord around neck, with compression, not applicable or unspecified; Z37.0 Single live birth; Z3A.38 38 weeks gestation of pregnancy; Z23 Encounter for immunization
CPT/HCPCS: 36415; 80306; 81000; 85025; 86850; 86900; 86901; 88307; 90686; 90707; 90715; 99212

== ENCOUNTER 2018-08-21 11:50 | Emergency (ER) | payer MEDICAID, OTHER ==
[~2018-08-21] VITALS: Ht 154.9 cm; Wt 52.2 kg
[~2018-08-21 11:50] MED LIST changes: +DOCU100C37 PO; +FERR325T18 PO; +IBUP-844 PO; +METR-197 PO; -METR500T21 PO
[2018-08-21] MEDS ORDERED: FAMOTIDINE 20 MG (PEPCID) TABLET PO STA (11:55)
[2018-08-21] MEDS ORDERED: LACTATED RINGERS 1,000 ML IV ONE (11:55)
--- OUTSIDE RECORDS SUMMARY | 2018-08-21 11:56 | XMS REPORT | Clinical Summary ---
Author Author [facility] Organization [facility] Address Unknown Phone Unavailable Care Team Providers [facility] Paramedic Name Role Phone Emergency, Nurse RN Unavailable Unavailable Reza iPllai MD PCP April Faust MD Unavailable Armida Trevino RN Unavailable Unavailable Jessy Love DO Unavailable Emil Overton MD Unavailable Source Comments Some departments are not documenting in the electronic medical record. If you do not see the information that you expected, contact Release of Information in the Health Information Management department at [phone] for further assistance in locating additional records.[facility] Allergies No Known Allergies Current Medications Prescription [...] vomiting syndrome 09/26/2015 Overview: Initial diagnosis in [id number] at [facility] Intractable nausea and vomiting 04/28/2015 Hyponatremia [...] Taken Blood Pressure 135/87 09/26/2015 1:02 PM OFFICE COMMUNICATION PROFESSOR Pulse 106 09/26/2015 1:02 PM OFFICE COMMUNICATION PROFESSOR Temperature 36.3 C (97.3 F) 09/26/2015 1:02 PM OFFICE COMMUNICATION PROFESSOR Respiratory Rate 16 09/26/2015 1:02 PM OFFICE COMMUNICATION PROFESSOR Oxygen Saturation 98% 05/01/2015 11:59 AM CDT Inhaled Oxygen - - Concentration Weight 54.4 kg (120 lb) 09/26/2015 1:02 PM OFFICE COMMUNICATION PROFESSOR Height 157.5 cm (5' 2") 09/26/2015 1:02 PM OFFICE COMMUNICATION PROFESSOR Body Mass Index 21.95 09/26/2015 1:02 PM OFFICE COMMUNICATION PROFESSOR Plan of Treatment Health Maintenance Due Date Last Done Comments PHYSICAL (COMPREHENSIVE) 2003 EXAM HPV VACCINES (1 of 3 - 2007 Female 3-dose series) PERTUSSIS VACCINE 2007 HIV SCREENING 2011 TETANUS VACCINE 2013 CERVICAL CANCER SCREENING 2017 INFLUENZA VACCINE 05/12/2018 Results Not on filefrom Last 3 Months
[2018-08-21] MEDS ORDERED: LIDOCAINE 2% VISCOUS 15 ML UDC PO ONE (12:00)
[2018-08-21] MEDS ORDERED: ANTACID SUSP 30 ML UDC (MYLANTA) PO ONE (12:00)
[2018-08-21] MEDS ORDERED: ONDANSETRON 4 MG/2 ML (SDV) Z0FRAN IVP ONE ×2 (12:00→15:00)
[2018-08-21] MEDS ORDERED: KETOROLAC 30 MG/ML VIAL IVP ONE (12:00)
--- NOTE | 2018-08-21 12:04 | ED Abdominal Pain ---
General Chief Complaint: Abdominal/GI Problems Stated Complaint: ABD PAIN Source of Information: Patient, EMS, Old Records Exam Limitations: No Limitations (MARIA G ROBERTSON) History of Present Illness Date Seen by Provider: Aug 21, 2018 Time Seen by Provider: 11:59 Initial Comments Patient presents to ER by EMS with chief complaint that yesterday evening she started having some sharp stabbing abdominal pain all over. It got worse today. She's not taken anything for it. She's had nausea intermittently with some vomiting times one this morning. She noted normal stomach contents. She's having no fevers or chills. She says about once a year this occurs and she associates it with her cyclical vomiting syndrome. She is one month and reports an uneventful and delivery. She says the pain is nonradiating. She denies a history of pancreatitis. She's had gallbladder and appendix removed surgically. She is not on control nor does she have her tubes tied or other form of contraception. She does not routinely take any medicines. She says in the past was worked best for her is some IV fluids and some opiate pain relievers as well as nausea medicines. She said her nausea is much better now. She'll bowel movement this morning that was soft but normal for her. EMS established an IV checked her blood sugar to be 92 and got a 12- lead EKG that was unremarkable. (MARIA G ROBERTSON) Allergies and Home Medications Allergies Coded Allergies: No Known Drug Allergies (Unverified , 01/12/16) Home Medications Docusate Sodium 100 Mg Capsule, 100 MG PO BID PRN for CONSTIPATION-1ST LINE Prescribed by: CASSY NI on 07/22/18 0807 Ferrous Sulfate 325 Mg Tablet, 325 MG PO DAILY@0800 Prescribed by: CASSY NI on 07/22/18 0807 Hydrocodone Bit/Acetaminophen 1 Tab Tab, 1 TAB PO Q4H PRN for PAIN-MODERATE Prescribed by: CASSY NI on 07/22/18 0807 Ibuprofen 600 Mg Tablet, 600 MG PO Q6H Prescribed by: CASSY NI on 07/22/18 0807 Ondansetron HCl 4 Mg Tab, 4 MG PO Q4H PRN for NAUSEA/VOMITING-1ST LINE Prescribed by: ERIKA LEWIS on 08/21/18 1534 Dch278/FA/Omega3/Dha/Fish Oil 1 Each Tab.chew, 2 EACH PO DAILY, (Reported) Patient Home Medication List Home Medication List Reviewed: Yes (MARIA G ROBERTSON) Review of Systems Review of Systems Constitutional: No chills, No diaphoresis EENTM: No Blurred Vision, No Double Vision Respiratory: Denies Cough, Denies Shortness of Air Cardiovascular: Denies Chest Pain, Denies Edema Gastrointestinal: See HPI; Denies Abdomen Distended; Abdominal Pain; Denies Constipated, Denies Diarrhea; Vomiting Genitourinary: Denies Burning, Denies Discharge Musculoskeletal: No back pain, No joint pain (MARIA G ROBERTSON) Past Vkltesb-Rdwpic-Mkfvql Hx Patient Social History Alcohol Use: Denies Use Recreational Drug Use: Yes Drug of Choice: marijuana Smoking Status: Current Everyday Smoker Type Used: Cigarettes 2nd Hand Smoke Exposure: Yes Recent Foreign Travel: No Contact w/Someone Who Travel: No Recent Hopitalizations: No (MARIA G ROBERTSON) Immunizations Up To Date Tetanus Booster (TDap): Less than 5yrs PED Vaccines UTD: Yes Date of Pneumonia Vaccine: Nov 12, 2013 Date of Influenza Vaccine: Sep 11, 2015 (MARIA G ROBERTSON) Seasonal Allergies Seasonal Allergies: No (MARIA G ROBERTSON) Past Medical History Surgeries: Yes (LAPAROSCOPY-OVARIAN CYST, ENDOMETRIOSIS; EGD) Abdominal, Appendectomy, Gallbladder Respiratory: Yes Asthma, Pneumonia Currently Using CPAP: No Currently Using BIPAP: No Cardiac: No Neurological: No Reproductive Disorders: Yes (LT OVARIAN CYST) Female 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, Ovarian Cyst Sexually Transmitted Disease: No HIV/AIDS: No Genitourinary: No Gastrointestinal: Yes (CHRONIC ABDOMINAL PAIN, CHRONIC N/V, CANNABIS HYPEREMESIS SYNDROME) Musculoskeletal: No Endocrine: No HEENT: No Cancer: No Psychosocial: Yes ("CYCLIC VOMITING", marijuana abuse) Sleep Difficulties, Anxiety, Depression Integumentary: No Blood Disorders: No Adverse Reaction/Blood Tranf: No (MARIA G ROBERTSON) Family Medical History Cancer GPA-DAD SIDE, Onset:Unknown Cataract GMA-DAD SIDE Dementia GPA-DAD SIDE Family history: Arthritis GPA-MOM SIDE Family history: Cardiovascular disease GMA-DAD SIDE (CAD STINTS) GMA-MOM SIDE (ENLARGED HEART DEFIBALATOR AND PACER) History of - respiratory disease GPA-DAD SIDE (EMPHYSEMA, COPD) No Family History of: AIDS Abdominal aortic aneurysm Abdominal aortic aneurysm Fidel's disease [place]'s disease Alcoholism Alcoholism Alzheimer's disease Aphasia Aphasia Arthritis Asthma Cancer of colon Cancer of mouth Cardiovascular disease Cataracts Chest pain Colon cancer Completed stroke Congenital disease Congenital heart disease Congenital heart disease Congestive heart failure Coronary thrombosis Cystic fibrosis Cystic fibrosis Deafness or hearing loss Diabetes mellitus Drug abuse Dysphagia Dysphasia Family history: Allergy Family history: Alzheimer's disease Family history: Asthma Family history: Breast disease Family history: Coronary thrombosis Family history: Diabetes mellitus Family history: Gastrointestinal disease Family history: Glaucoma Family history: Hypertension Family history: Osteoporosis Family history: Thyroid disorder Fibrocystic disease of breast Gastroenteritis Glaucoma Headache Hearing loss Heart disease Hereditary disease History of - anemia History of - disorder History of drug abuse Human immunodeficiency virus (HIV) seropositivity Hypercholesterolemia Hypercholesterolemia Infertile Kidney disease Malignant neoplasm of lung Myocardial infarction Parkinson's disease Prostate cancer Psychotic disorder Seizure disorder Severe allergy Stroke Thyroid disease Tuberculosis Tuberculosis Visual disorder Visual impairment No Pertinent Family Hx (MARIA G ROBERTSON) Physical Exam Vital Signs Vital Signs - First Documented 08/21/18 11:58 Temp 97.9 Pulse 83 Resp 18 B/P (MAP) 123/89 (100) Pulse Ox 96 (ERIKA LEWIS APRN) Vital Signs Capillary Refill : (MARIA G ROBERTSON) Height/Weight/BMI Height: 5'1.00" Weight: 117lbs. 0.8oz. 53.788845yh; 22.1 BMI Method:Stated General Appearance: WD/WN, moderate distress HEENT: PERRL/EOMI, normal ENT inspection, pharynx normal Neck: non-tender, full range of motion, supple, normal inspection Respiratory: chest non-tender, lungs clear, normal breath sounds, no respiratory distress, no accessory muscle use Cardiovascular: normal peripheral pulses, regular rate, rhythm, no edema Peripheral Pulses: 2+ Radial Pulses (R), 2+ Radial Pulses (L) Gastrointestinal: normal bowel sounds, no organomegaly; No distended; guarding , tenderness Extremities: normal range of motion, non-tender, normal inspection, normal capillary refill Neurologic/Psychiatric: alert, oriented x 3, other (wincing in pain but able to control along after answer questions clearly and coherently.) Skin: normal color, warm/dry (MARIA G ROBERTSON) Progress/Results/Core Measures Results/Orders Lab Results Laboratory Tests Test 08/21/18 11:54 08/21/18 12:00 Range/Units White Blood Count 6.6 4.3-11.0 10^3/uL Red Blood Count 4.36 4.35-5.85 10^6/uL Hemoglobin 13.2 11.5-16.0 G/DL Hematocrit 39 35-52 % Mean Corpuscular Volume 89 80-99 FL Mean Corpuscular Hemoglobin 30 25-34 PG Mean Corpuscular Hemoglobin Concent 34 32-36 G/DL Red Cell Distribution Width 12.7 10.0-14.5 % Platelet Count 316 130-400 10^3/uL Mean Platelet Volume 9.7 7.4-10.4 FL Neutrophils (%) (Auto) 73 42-75 % Lymphocytes (%) (Auto) 22 12-44 % Monocytes (%) (Auto) 4 0-12 % Eosinophils (%) (Auto) 0 0-10 % Basophils (%) (Auto) 0 0-10 % Neutrophils # (Auto) 4.8 1.8-7.8 X 10^3 Lymphocytes # (Auto) 1.5 1.0-4.0 X 10^3 Monocytes # (Auto) 0.3 0.0-1.0 X 10^3 Eosinophils # (Auto) 0.0 0.0-0.3 10^3/uL Basophils # (Auto) 0.0 0.0-0.1 10^3/uL Sodium Level 141 135-145 MMOL/L Potassium Level 3.7 3.6-5.0 MMOL/L Chloride Level 110 H 98-107 MMOL/L Carbon Dioxide Level 17 L 21-32 MMOL/L Anion Gap 14 5-14 MMOL/L Blood Urea Nitrogen 8 7-18 MG/DL Creatinine 0.65 0.60-1.30 MG/DL Estimat Glomerular Filtration Rate > 60 BUN/Creatinine Ratio 12 Glucose Level 97 70-105 MG/DL Calcium Level 9.8 8.5-10.1 MG/DL Corrected Calcium 9.4 8.5-10.1 MG/DL Magnesium Level 1.8 1.8-2.4 MG/DL Total Bilirubin 0.5 0.1-1.0 MG/DL Aspartate Amino Transf (AST/SGOT) 15 5-34 U/L Alanine Aminotransferase (ALT/SGPT) 10 0-55 U/L Alkaline Phosphatase 76 40-136 U/L Total Protein 7.3 6.4-8.2 GM/DL Albumin 4.5 3.2-4.5 GM/DL Lipase 8 8-78 U/L Serum Alcohol < 10 <10 MG/DL Monoscreen NEGATIVE NEGATIVE Urine Color YELLOW Urine Clarity VERY CLOUDY H Urine pH 5 5-9 Urine Specific [place] 1.025 H 1.016-1.022 Urine Protein 2+ H NEGATIVE Urine Glucose (UA) NEGATIVE NEGATIVE Urine Ketones 3+ H NEGATIVE Urine Nitrite NEGATIVE NEGATIVE Urine Bilirubin NEGATIVE NEGATIVE Urine Urobilinogen 1 NORMAL MG/DL Urine Leukocyte Esterase 2+ H NEGATIVE Urine RBC (Auto) NEGATIVE NEGATIVE Urine RBC NONE /HPF Urine WBC 5-10 H /HPF Urine Squamous Epithelial Cells 10-25 H /HPF Urine Crystals NONE /LPF Urine Amorphous Sediment MOD CHAZ URATES H /LPF Urine Bacteria MODERATE H /HPF Urine Casts NONE /LPF Urine Mucus LARGE H /LPF Urine Culture Indicated YES Urine Opiates Screen POSITIVE H NEGATIVE Urine Oxycodone Screen NEGATIVE NEGATIVE Urine Methadone Screen NEGATIVE NEGATIVE Urine Propoxyphene Screen NEGATIVE NEGATIVE Urine Barbiturates Screen NEGATIVE NEGATIVE Ur Tricyclic Antidepressants Screen NEGATIVE NEGATIVE Urine Phencyclidine Screen NEGATIVE NEGATIVE Urine Amphetamines Screen NEGATIVE NEGATIVE Urine Methamphetamines Screen NEGATIVE NEGATIVE Urine Benzodiazepines Screen NEGATIVE NEGATIVE Urine Cocaine Screen NEGATIVE NEGATIVE Urine Cannabinoids Screen POSITIVE H NEGATIVE (ERIKA LEWIS APRN) Medications Given in ED Current Medications Medications Dose Ordered Sig/Dani Route Start Time Stop Time Status Last Admin Dose Admin Al Hydrox/Mg Hydrox/Simethicone 30 ml ONCE ONCE PO 08/21/18 12:00 08/21/18 12:01 DC 08/21/18 12:37 30 ML Ceftriaxone Sodium 1000 mg/ Sodium Chloride 50 ml @ 100 mls/hr ONCE ONCE IV 08/21/18 13:45 08/21/18 14:14 DC 08/21/18 13:46 100 MLS/HR Fentanyl Citrate 50 mcg ONCE ONCE IVP 08/21/18 13:00 08/21/18 13:01 DC 08/21/18 13:03 50 MCG Iohexol 100 ml ONCE ONCE IV 08/21/18 13:45 08/21/18 13:46 DC 08/21/18 14:44 75 ML Ketorolac Tromethamine 30 mg ONCE ONCE IVP 08/21/18 12:00 08/21/18 12:01 DC 08/21/18 12:15 30 MG Lactated Ringer's 1,000 ml @ 0 mls/hr Q0M ONCE IV 08/21/18 11:55 08/21/18 12:00 DC 08/21/18 12:15 0 MLS/HR Lidocaine HCl 15 ml ONCE ONCE PO 08/21/18 12:00 08/21/18 12:01 DC 08/21/18 12:37 15 ML Ondansetron HCl 4 mg ONCE ONCE IVP 08/21/18 12:00 08/21/18 12:01 DC 08/21/18 12:15 4 MG Ondansetron HCl 4 mg ONCE ONCE IVP 08/21/18 15:00 08/21/18 15:01 DC 08/21/18 14:57 4 MG Promethazine HCl 25 mg ONCE ONCE IVP 08/21/18 13:45 08/21/18 13:46 DC 08/21/18 13:46 25 MG Sodium Chloride 10 ml NEEDED PRN IV 08/21/18 13:45 08/21/18 14:45 10 ML Sodium Chloride 250 ml ONCE ONCE IV 08/21/18 13:45 08/21/18 13:46 DC 08/21/18 14:44 80 ML (ERIKA LEWIS APRN) Vital Signs/I&O 08/21/18 11:58 Temp 97.9 Pulse 83 Resp 18 B/P (MAP) 123/89 (100) Pulse Ox 96 (ERIKA LEWIS APRN) Progress Progress Note #1: Time: 12:09 Progress Note Toradol 30 mg IV and Zofran followed by obtaining labs, urine, lipase, urine drug screen and we'll give her a liter of IV fluids. Recent records indicate severe IUGR less than 5th percentile for her . History of cyclic vomiting syndrome versus cannabis hyperemesis. History of opiate use in . A review of the K tracks indicates the patient has received multiple scripts this year for hydrocodone May and June as well as fentanyl patches earlier in the year. There are previous ER encounters this year indicating that she's had hyperemesis, abdominal pain and positive urine cannabinoids. Progress Note #2: Time: 13:35 Progress Note The patient summoned me to her room within 30 seconds of receiving the initial Toradol shot and informed me that Toradol never works for her and she needs something more potent. I asked her to at least give it 20 minutes for Toradol to get in her system and start working before she declared it a failure. After 20 minutes she was still tearful and complaining of severe pain in her abdomen up from 8 out of 10 to now 10 out of 10. She was given 50 g of fentanyl which the nurse reports as soon as she pushed it the patient had immediate, total relief of her symptoms. This lasted for about 5 or 10 minutes and then the patient began to moan and cry that she was having pain again. We reviewed her labs with her and asked her if she's had this worked up elsewhere. She says the Dr. Estes worked her up earlier in the year and gave her some opiates as well as she received from opiates during her . She thinks it has been a few weeks since she's had any opiates. I informed her it be unlikely that opiates would still be in her system weeks later to be seen on the urine drug screen and she says maybe she took some 3 or 4 days ago but she really can't remember. She also cannot remember the conclusion of any of her outpatient workup. She still having nausea and has vomited some yellow, thin secretions so we have offered her some Phenergan since the Zofran did not seem to be as helpful. Her labs are completely unremarkable and her urine appears to be cloudy, consistent with possible dehydration but is difficult to tell whether there is a contamination or an infection. We'll be happy to cover her with antibiotics and obtain a CT scan of her abdomen to rule out urgent surgical pathology. Progress Note #3: Time: 14:55 Progress Note After the patient returned to the room from the CT scanner she states that she was still having commencement of pain and had no relief despite Toradol and fentanyl. Her we've yet to find any source of her pathology and have offered her more Phenergan or Zofran and she would like some more IV Zofran. She says she would like something more for pain so I offered her an oral since she said her nausea had improved significantly. She declined hydrocodone stating she has this at home even though earlier she told me that she had ran out days ago Prior to the present symptoms appearing. She's insisted she would prefer something IV stronger than fentanyl. I explained to her that her use of opiates at home as well as her opiates here have not treated her pain and I be more worried about the dosage she's been using and causing possible respiratory distress. After I left the room she called the nurse back to the bedside and asked for a glass of water. The nurse took the water to her and she drank it. We will observe the patient and she is tolerating orals do CTs over read by the radiologist as normal then we would be ready to discharge her home for outpatient follow-up. Progress Note #4: Time: 17:14 Progress Note After reviewing the labs, urine, urine drug screen, K tracks prescribing history with the patient I explained to her that the only commonality I can see with all of her symptoms and her recent visits for similar symptoms over the last couple years where the cannabis and opiates. I'm not suggesting she has an addiction but I do think she has a dependence on opiates and THC that is unhealthy for her. I explained to her that I will not be providing her any more opiates but instead I would be happy to provide her with Tylenol, Motrin, Phenergan and/or Zofran. Explained her I did not believe she had a urinary tract infection but there is a slim possibility so we would cover her with Macrobid. She's already received a dose of Rocephin and azithromycin which would cover her if she was experiencing pain from PID. We'll obtain a GC and chlamydia by PCR. I have suggested strongly that she follow up outpatient with [facility] for outpatient opiate dependence symptom amelioration and to help her manage her withdrawal from opiates. While she is not particularly happy about this determination she will accept the referral. The findings of enlarged uterus on CT abdomen pelvis would be consistent with one month . (MARIA G ROBERTSON) Diagnostic Imaging Diagonstic Imaging: CT (with contrast) Plain Films/CT/US/NM/MRI: abdomen, pelvis Comments VIA [facility]. [place], [place] NAME: LAZARA MATHIS [facility] REC#: [id number] PT STATUS: REG ER : 1995 PHYSICIAN: MARIA G ROBERTSON MD ADMIT DATE: 08/21/18/ER Draft Date of Exam:08/21/18 CT ABDOMEN/PELVIS W PROCEDURE: CT abdomen and pelvis with contrast. TECHNIQUE: Multiple contiguous axial images were obtained through the abdomen and pelvis after administration of intravenous contrast. INDICATION: Abdominal pain and vomiting. FINDINGS: The previous CT abdomen/pelvis exam of 12/10/2015 noted slight distention of the proximal jejunum with fluid and raised the question of enteritis. On this study, the small bowel does not appear to be abnormally distended by fluid or gas. There is no sign of a bowel obstruction or enteritis. The myometrium of the uterus does seem to be of diminished density when compared to the prior exam. This finding is nonspecific. The endometrial lining is thickened, measuring 24 mm (5 mm or less). Correlation with the patient's menstrual cycle recommended. If further evaluation of the uterus is desired, then ultrasound would be recommended. There is no solid pelvic mass or any significant free fluid collection identified. The appendix appears to be surgically absent. The liver, spleen, pancreas, adrenals, aorta and inferior vena cava show no sign of an acute abnormality. There is a 5 mm nonobstructive calculus within the left kidney. Both kidneys do show excretion of the contrast. The stomach is not well-distended and consequently difficult to assess. The lung bases are clear. The bone windows show no evidence for a fracture or for a destructive lesion. IMPRESSION: 1. There is no sign of recurrent enteritis and there is no evidence for a bowel obstruction. 2. The myometrium of the uterus does seem less dense than noted on the prior exam. This is of uncertain etiology. If further evaluation is desired, then ultrasound would be recommended. 3. There is no acute abnormality of the abdomen or pelvis otherwise. 4. The gallbladder and appendix are surgically absent. Dictated on workstation # [id number] Dict: 08/21/18 1450 Trans: 08/21/18 1518 [facility] [id number] Interpreted by: SAMIR KENNEDY MD Electronically signed by: Reviewed: Reviewed by Me (MARIA G ROBERTSON) Departure Impression Primary Impression: Chronic abdominal pain Additional Impressions: Marijuana use, continuous Cannabis hyperemesis syndrome concurrent with and due to cannabis dependence Opiate dependence Qualified Codes: F11.29 - Opioid dependence with unspecified opioid-induced disorder UTI (urinary tract infection) Qualified Codes: N30.00 - Acute cystitis without hematuria Disposition: HOME, SELF-CARE Condition: Stable Departure-Patient Inst. Decision time for Depature: 17:18 (MARIA G ROBERTSON) Decision time for Depature: 15:32 (ERIKA LEWIS APRN) Referrals: CASSY NI DO (PCP/Family) Primary Care Physician Patient Instructions: Acute Abdomen (Belly Pain), Adult (DC), CHRONIC PAIN Add. Discharge Instructions: 1. Drink plenty clear liquids only and only small amounts until vomiting subsides. Call your primary care provider on Thursday to make an appointment to be seen. Zofran 1 tablet every 6 hours as needed for nausea. Phenergan one tablet every 6 hours as needed for nausea as well. Discontinue the use of cannabis. Return to ER for any concerns. All discharge instructions reviewed with patient and/or family. Voiced understanding. Scripts Ondansetron HCl (Zofran) 4 Mg Tab 4 MG PO Q4H PRN for NAUSEA/VOMITING-1ST LINE, #14 TAB Prov: ERIKA LEWIS APRN 08/21/18 Copy Copies To 1: CAYDEN RAZA DO; SELF,MARIA G HOWARD MD Aug 21, 2018 12:04 ERIKA LEWIS APRN Aug 21, 2018 15:34
--- OUTSIDE RECORDS SUMMARY | 2018-08-21 12:14 | XMS REPORT | Continuity of Care Document ---
Author Author [facility] Address Unknown Phone Unavailable Allergies Active Description Code Type Severity Reaction Onset Reported/Identified Relationship to Patient Clinical Status Yes narcotic analgesic Drug Allergy 05/30/2010 Yes No Known Drug Allergies [id number] Drug Allergy Unknown N/A 01/12/2016 Medications There is no data. Problems Date Dx Coded Attending Type Code Diagnosis Diagnosed By 12/05/2008 845.00 ANKLE SPRAIN LEFT 12/05/2008 845.00 ANKLE SPRAIN LEFT 12/05/2008 LENCHO BOWERS APRN S 845.00 ANKLE SPRAIN LEFT 12/05/2008 CAYDEN RAZA DO 845.00 ANKLE SPRAIN LEFT 12/05/2008 JAEN NOYOLA MD 845.00 ANKLE SPRAIN LEFT 12/05/2008 DENNYS REDMAN, EJAN 845.00 ANKLE SPRAIN LEFT 12/05/2008 DENNYS REDMAN, [...] Establ. 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 Patient [...] ESTABL. 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 PATIENT [...] FELICITY A 493.90 ASTHMA EXERCISE-INDUCED 05/29/2009 JOYCELYN CNC MANAGER, FELICITY A 724.2 LOWER BACK PAIN 05/29/2009 [...] JEAN 706.1 OTHER ACNE 02/28/2010 DENNYS REDMAN, JAEN 477.9 ALLERGIC RHINITIS, CAUSE UNSPECIFIED 02/28/2010 DENNYS [...] 372.00 ACUTE CONJUNCTIVITIS, UNSPECIFIED 03/19/2010 DENNYS REDMAN, JAEN 132.0 PEDICULUS CAPITIS [HEAD LOUSE] 03/19/2010 DENNYS REDMAN, JEAN 372.00 ACUTE CONJUNCTIVITIS, UNSPECIFIED 03/19/2010 DENNYS REDMAN, JEAN 132.0 PEDICULUS CAPITIS [HEAD LOUSE] 03/19/2010 DENNYS REDMAN, JEAN 372.00 ACUTE CONJUNCTIVITIS, UNSPECIFIED 03/19/2010 ELISSA CNC MANAGER, LENCHO S 132.0 PEDICULUS CAPITIS [HEAD LOUSE] [...] JEAN 845.03 SPRAIN LAT ANKLE 12/17/2011 JESSICA HRISCH APRNYL A 845.03 SPRAIN LAT ANKLE 05/10/2012 [...] REDMAN, JEAN 462 PHARYNGITIS ACUTE 11/05/2012 RAJYANET CNC MANAGER, FELICITY A 462 PHARYNGITIS ACUTE 11/11/2012 786.2 [...] ALLERGIC RHINITIS DUE TO POLLEN 05/12/2013 RAJOTTE CNC MANAGER, FELICITY A 477.0 ALLERGIC RHINITIS DUE TO POLLEN 05/12/2013 JEAN NOYOLA MD 477.0 ALLERGIC RHINITIS DUE TO POLLEN 05/12/2013 RAJOTTE CNC MANAGER, FELICITY A 477.0 ALLERGIC RHINITIS DUE TO [...] CAYDEN K 787.02 NAUSEA ALONE 07/14/2013 RAJOTTE CNC MANAGER, FELICITY A 729.1 MYALGIA AND MYOSITIS UNSPECIFIED 07/14/2013 RAJOTTE CNC MANAGER, FELICITY A 787.02 NAUSEA ALONE 07/14/2013 DENNYS REDMAN, JEAN 729.1 MYALGIA AND MYOSITIS UNSPECIFIED 07/14/2013 DENNYS REDMAN, JEAN 787.02 NAUSEA ALONE 07/14/2013 RAJOTTE CNC MANAGER, FELICITY A 729.1 MYALGIA AND MYOSITIS UNSPECIFIED 07/14/2013 RAJOTTE CNC MANAGER, FELICITY A 787.02 NAUSEA ALONE 08/08/2013 RAZA [...] APRN Ot 787.91 DIARRHEA 08/17/2013 ERIKA LEWIS CNC MANAGER Ot 789.09 ABDOMINAL PAIN, OTHER SPECIFIED SITE [...] MD Ot 530.11 REFLUX ESOPHAGITIS 11/02/2013 LEAH LEYAV MD Ot 535.50 UNSP GASTRITIS GASTRODUODENITIS W/O [...] ABDOMINAL PAIN, RIGHT UPPER QUADRANT 11/17/2013 ELISSA CNC MANAGER, LENCHO S 564.1 IRRITABLE BOWEL SYNDROME 11/17/2013 [...] 789.07 ABDOMINAL PAIN GENERALIZED 11/29/2013 ERIKA LEWIS CNC MANAGER Ot 276.8 HYPOPOTASSEMIA 11/29/2013 ERIKA LEWIS CNC MANAGER Ot 599.0 URIN TRACT INFECTION NOS 11/29/2013 ERIKA LEWIS CNC MANAGER Ot 787.01 NAUSEA WITH VOMITING 12/07/2013 JEAN [...] V25.09 CONTRACEPTIVE COUNSELING - GENERAL 07/12/2014 JOYCELYN CNC MANAGER, FELICITY A V69.2 HIGH-RISK SEXUAL BEHAVIOR 07/12/2014 JOYCELYN CNC MANAGER, FELICITY A V72.41 TEST NEGATIVE RESULT 07/12/2014 DENNYS REDMAN, JEAN 626.0 AMENORRHEA 07/12/2014 DENNYS REDMAN, JEAN V25.09 CONTRACEPTIVE COUNSELING - GENERAL 07/12/2014 DENNYS REDMAN, JEAN V69.2 HIGH-RISK SEXUAL BEHAVIOR 07/12/2014 DENNYS REDMAN, JEAN V72.41 TEST NEGATIVE RESULT 07/12/2014 JOYCELYN CNC MANAGER, FELICITY A 626.0 AMENORRHEA 07/12/2014 JOYCELYN SERRATO FELICITY A V25.09 CONTRACEPTIVE COUNSELING - GENERAL 07/12/2014 JOYCELYN SERRATO FELICITY A V69.2 HIGH-RISK SEXUAL BEHAVIOR 07/12/2014 JOYCELYN CNC MANAGER, FELICITY A V72.41 TEST NEGATIVE RESULT 09/05/2014 Ot 959.19 09/05/2014 Ot E849.4 09/05/2014 Ot E888.9 09/05/2014 ANDERS GRAY CNC MANAGER Ot 787.01 09/05/2014 ANDERS GRAY CNC MANAGER Ot 789.00 09/05/2014 Ot 959.19 09/05/2014 Ot E849.4 09/05/2014 Ot E888.9 09/05/2014 ANDERS GRAY CNC MANAGER Ot 787.01 09/05/2014 ANDERS GRAY CNC MANAGER Ot 789.00 09/05/2014 CADE REDMAN, DONNA Sunshine Ot 536.2 PERSISTENT VOMITING 09/05/2014 CADE REDMAN, DONNA Sunshine Ot 787.91 DIARRHEA 09/05/2014 DONNA MOHAMUD MD Ot 789.07 ABDOMINAL PAIN, GENERALIZED 09/12/2014 Ot 959.19 09/12/2014 Ot E849.4 09/12/2014 Ot E888.9 09/12/2014 ANDERS GRAY R CNC MANAGER Ot 787.01 09/12/2014 ANDERS GRAY R CNC MANAGER Ot 789.00 09/20/2014 JESSICA HIRSCH APRNYL Anthony V74.1 TB SCREENING 10/02/2014 Ot 959.19 10/02/2014 Ot E849.4 10/02/2014 Ot E888.9 10/02/2014 ANDERS GRAY R CNC MANAGER Ot 787.01 10/02/2014 ANDERS GRAY CNC MANAGER Ot 789.00 10/04/2014 NENA REDMAN, BESS Cruz Ot 466.0 ACUTE BRONCHITIS 10/04/2014 BESS BARRETT MD Ot 786.2 COUGH 04/11/2015 ANDERS GRAY R CNC MANAGER Ot 787.01 04/11/2015 ANDERS GRAY R CNC MANAGER Ot 789.00 04/11/2015 ERIKA LEWIS CNC MANAGER Ot 305.21 CANNABIS ABUSE-CONTIN 04/11/2015 ERIKA LEWIS CNC MANAGER Ot 536.2 PERSISTENT VOMITING 04/11/2015 ERIKA LEWIS CNC MANAGER Ot 599.0 URIN TRACT INFECTION NOS 04/15/2015 DENNYS REDMAN, JEAN L Ot 276.2 ACIDOSIS 04/15/2015 DENNYS REDMAN, JEAN Brady Ot 276.51 DEHYDRATION 04/15/2015 JEAN NOYOLA MD Ot 276.8 HYPOPOTASSEMIA 04/15/2015 JEAN NOYOLA MD Ot 307.54 PSYCHOGENIC VOMITING 04/15/2015 JEAN NOYOLA MD Ot 788.1 DYSURIA 04/17/2015 ORLANDO MCDUFFIE Ot 305.20 CANNABIS ABUSE-UNSPEC 04/17/2015 ORLANDO MCDUFFIE Ot 536.2 PERSISTENT VOMITING 04/18/2015 ANDERS GRAY R CNC MANAGER Ot 787.01 04/18/2015 ANDERS GRAY R CNC MANAGER Ot 789.00 04/19/2015 JEAN NOYOLA MD Ot 276.51 04/19/2015 JEAN ONYOLA MD Ot 276.8 04/19/2015 DENNYS REDMAN JEAN [...] Ot 787.03 VOMITING ALONE 05/20/2015 ERIKA LEWIS CNC MANAGER Ot 276.8 HYPOPOTASSEMIA 05/20/2015 ERIKA LEWIS CNC MANAGER Ot 599.0 URIN TRACT INFECTION NOS 05/20/2015 ERIKA LEWIS CNC MANAGER Ot 787.01 NAUSEA WITH VOMITING 08/14/2015 ERIKA LEWIS CNC MANAGER Ot F12.10 CANNABIS ABUSE, UNCOMPLICATED 08/14/2015 ERIKA LEWIS CNC MANAGER Ot G43.A0 CYCLICAL VOMITING, NOT INTRACTABLE 08/14/2015 ERIKA LEWIS CNC MANAGER Ot Z91.14 PATIENT'S OTHER NONCOMPLIANCE WITH MEDIC 08/20/2015 ANDERS GRAY CNC MANAGER Ot 787.01 08/20/2015 ANDERS GRAY CNC MANAGER Ot 789.00 08/21/2015 JASON LOPEZ MD Ot [...] HAYWARD DO Ot Z91.19 PATIENT'S NONCOMPLIANCE W [facility] TR 09/29/2015 HEIDI KOENIGMARYSOL Ot R10.9 [...] GENERALIZED ABDOMINAL PAIN 10/08/2015 CADE REDMAN, DONNA uSnshine Ot R11.10 VOMITING, UNSPECIFIED 10/10/2015 MYNOR GUILLAUME MD Ot F12.10 CANNABIS ABUSE, UNCOMPLICATED 10/10/2015 MYNOR GUILLAUME MD Ot G89.29 OTHER CHRONIC PAIN 10/10/2015 MYNOR GUILLAUME MD Ot K76.0 FATTY (CHANGE OF) LIVER, NOT ELSEWHERE C 10/10/2015 MYNOR GUILLAUME MD Ot K76.9 LIVER DISEASE, UNSPECIFIED 10/10/2015 MYNOR GUILLAUME MD Ot R10.84 GENERALIZED ABDOMINAL PAIN 12/10/2015 ANDERS GRAY CNC MANAGER Ot 787.01 12/10/2015 ANDERS GRAY CNC MANAGER Ot 789.00 12/10/2015 DONNA MOHAMUD MD Ot [...] ORLANDO MCDUFFIE Ot Z91.19 PATIENT'S NONCOMPLIANCE W [facility] TR 01/13/2016 Ot E87.1 HYPO- OSMOLALITY [...] L03.317 CELLULITIS OF BUTTOCK 02/22/2016 ERIKA LEWIS CNC MANAGER Ot L02.31 CUTANEOUS ABSCESS OF BUTTOCK 02/25/2016 ERIKA LEWIS CNC MANAGER Ot L02.31 CUTANEOUS ABSCESS OF BUTTOCK 02/25/2016 [...] OR REMOVAL OF DRAIN 06/11/2016 ANDERS GRAY CNC MANAGER Ot 787.01 NAUSEA WITH VOMITING 06/11/2016 ANDERS GRAY CNC MANAGER Ot 789.00 ABDOMINAL PAIN, UNSPECIFIED SITE 06/12/2016 ANDERS GRAY CNC MANAGER Ot 787.01 NAUSEA WITH VOMITING 06/12/2016 ANDERS GRAY CNC MANAGER Ot 789.00 ABDOMINAL PAIN, UNSPECIFIED SITE 06/12/2016 [...] ZOHREH Ot R05 COUGH 08/10/2016 ANDERS GRAY CNC MANAGER Ot 787.01 NAUSEA WITH VOMITING 08/10/2016 ANDERS GRAY R CNC MANAGER Ot 789.00 ABDOMINAL PAIN, UNSPECIFIED SITE 08/10/2016 ORLANDO MCDUFFIE Ot F17.210 NICOTINE DEPENDENCE, CIGARETTES, UNCOMPL 08/10/2016 ORLANDO MCDUFFIE Ot L50.9 URTICARIA, UNSPECIFIED 08/10/2016 ORLANDO MCDUFFIE Ot L73.9 FOLLICULAR DISORDER, UNSPECIFIED 08/10/2016 ORLANDO MCDUFFIE Ot R21 RASH AND OTHER NONSPECIFIC SKIN ERUPTION 08/12/2016 ROLANDO MCDUFFIE Ot F17.210 NICOTINE DEPENDENCE, CIGARETTES, UNCOMPL 08/12/2016 ORLANDO MCDUFFIE Ot L50.9 URTICARIA, UNSPECIFIED 08/12/2016 ORLANDO MCDUFFIE Ot L73.9 FOLLICULAR DISORDER, UNSPECIFIED 08/12/2016 ORLANDO MCDUFFIE Ot R21 RASH AND OTHER NONSPECIFIC SKIN ERUPTION 08/12/2016 ANDERS GRAY CNC MANAGER Ot 787.01 NAUSEA WITH VOMITING 08/12/2016 ANDERS GRAY CNC MANAGER Ot 789.00 ABDOMINAL PAIN, UNSPECIFIED SITE 08/12/2016 ERIKA LEWIS CNC MANAGER Ot L02.215 CUTANEOUS ABSCESS OF PERINEUM 08/14/2016 ERIKA LEWIS CNC MANAGER Ot L02.215 CUTANEOUS ABSCESS OF PERINEUM 08/14/2016 [...] NAUSEA WITH VOMITING, UNSPECIFIED 08/15/2016 ERIKA LEWIS CNC MANAGER Ot 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, UNCOMPLICATED 08/15/2016 ERIKA LEWIS APRN Ot F12.988 CANNABIS USE, UNSP WITH OTHER CANNABIS-I 08/15/2016 ERIKA LEWIS APRN Ot F13.10 SEDATIVE, HYPNOTIC OR ANXIOLYTIC ABUSE, 08/15/2016 ERIKA LEWIS CNC MANAGER Ot F17.210 NICOTINE DEPENDENCE, CIGARETTES, UNCOMPL 08/15/2016 ERIKA LEWIS CNC MANAGER Ot G43.A0 CYCLICAL VOMITING, NOT INTRACTABLE 08/18/2016 ERIKA LEWIS CNC MANAGER Ot 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, UNCOMPLICATED 08/18/2016 ERIKA LEWIS APRN Ot F12.988 CANNABIS USE, UNSP WITH OTHER CANNABIS-I 08/18/2016 ERIKA LEWIS APRN Ot F13.10 SEDATIVE, HYPNOTIC OR ANXIOLYTIC ABUSE, 08/18/2016 ERIKA LEWIS APRN Ot F17.210 NICOTINE DEPENDENCE, CIGARETTES, UNCOMPL 08/18/2016 ERIKA LEWIS APRN Ot G43.A0 CYCLICAL VOMITING, NOT INTRACTABLE 11/30/2017 ANDERS GRAY CNC MANAGER Ot 787.01 NAUSEA WITH VOMITING 11/30/2017 ANDERS GRAY CNC MANAGER Ot 789.00 ABDOMINAL PAIN, UNSPECIFIED SITE 11/30/2017 [...] OTH MENTAL DISORDERS COMPLICATING PREGNA 12/15/2017 MAINOR KEONIG ZOHREH Fontana Ot O99.511 DISEASES OF THE [...] TO ENVIRON TOBACCO SMO 12/18/2017 ERIKA LEWIS CNC MANAGER Ot Z82.49 FAMILY HX OF ISCHEM HEART DIS AND OTH DI 12/18/2017 ERIKA LEWIS CNC MANAGER Ot Z87.01 PERSONAL HISTORY OF PNEUMONIA (RECURRENT 12/18/2017 ERIKA LEWIS CNC MANAGER Ot Z87.448 PERSONAL HISTORY OF OTHER DISEASES OF UR 12/18/2017 ERIKA LEWIS CNC MANAGER Ot Z90.49 ACQUIRED ABSENCE OF OTHER SPECIFIED PART 12/18/2017 ERIKA LEWIS CNC MANAGER Ot Z91.14 PATIENT'S OTHER NONCOMPLIANCE WITH MEDIC 12/19/2017 SIAAC ANDERS R CNC MANAGER Ot 787.01 NAUSEA WITH VOMITING 12/19/2017 ISAAC, ANDERS R CNC MANAGER Ot 789.00 ABDOMINAL PAIN, UNSPECIFIED SITE 12/19/2017 ISAAC, ANDERS R CNC MANAGER Ot 787.01 NAUSEA WITH VOMITING 12/19/2017 ISAAC, ANDERS R CNC MANAGER Ot 789.00 ABDOMINAL PAIN, UNSPECIFIED SITE 12/19/2017 KARINA, MARTIN PULP HOUSE SUPERVISOR Ot 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, UNCOMPLICATED 12/19/2017 KARINA, MARTIN [employer] HOUSE SUPERVISOR Ot F12.188 CANNABIS ABUSE WITH OTHER CANNABIS-INDUC 12/19/2017 KARINA, MARTIN [employer] HOUSE SUPERVISOR Ot F12.90 CANNABIS USE, UNSPECIFIED, UNCOMPLICATED 12/19/2017 KARINA, MARTIN P[employer] HOUSE SUPERVISOR Ot F32.9 MAJOR DEPRESSIVE DISORDER, SINGLE EPISOD 12/19/2017 KARINA, MARTIN [employer] HOUSE SUPERVISOR Ot F41.9 ANXIETY DISORDER, UNSPECIFIED 12/19/2017 KARINA, MARTIN P[employer] HOUSE SUPERVISOR Ot J45.909 UNSPECIFIED ASTHMA, UNCOMPLICATED 12/19/2017 KARINA, MARTIN P[employer] HOUSE SUPERVISOR Ot O21.9 VOMITING OF , UNSPECIFIED 12/19/2017 KARINA, MARTIN P[employer] HOUSE SUPERVISOR Ot O99.321 DRUG USE COMPLICATING , FIRST T 12/19/2017 KARINA, MARTIN P[employer] HOUSE SUPERVISOR Ot O99.341 OTH MENTAL DISORDERS COMPLICATING PREGNA 12/19/2017 KARINA, MARTIN P[employer] HOUSE SUPERVISOR Ot O99.511 DISEASES OF THE RESP SYS COMP , 12/19/2017 KARINA, MARTIN P[employer] HOUSE SUPERVISOR Ot Z3A.01 LESS THAN 8 WEEKS GESTATION OF 12/19/2017 KARINA, MARTIN P[employer] HOUSE SUPERVISOR Ot Z77.22 CNTCT W AND EXPSR TO ENVIRON TOBACCO SMO 12/19/2017 KARINA, MARTIN P[employer] HOUSE SUPERVISOR Ot Z87.01 PERSONAL HISTORY OF PNEUMONIA (RECURRENT 12/19/2017 KARINA, MARTIN P[employer] HOUSE SUPERVISOR Ot Z87.42 PERSONAL HISTORY OF OTH DISEASES OF THE 12/19/2017 KARINA, MARTIN P[employer] HOUSE SUPERVISOR Ot Z90.49 ACQUIRED ABSENCE OF OTHER SPECIFIED PART 12/21/2017 KARINA, MARTIN P[employer] HOUSE SUPERVISOR Ot 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, UNCOMPLICATED 12/21/2017 KARINA, MARTIN P[employer] HOUSE SUPERVISOR Ot F12.188 CANNABIS ABUSE WITH OTHER CANNABIS-INDUC 12/21/2017 KARINA, MARTIN P[employer] HOUSE SUPERVISOR Ot F12.90 CANNABIS USE, UNSPECIFIED, UNCOMPLICATED 12/21/2017 KARINA, MARTIN P[employer] HOUSE SUPERVISOR Ot F32.9 MAJOR DEPRESSIVE DISORDER, SINGLE EPISOD 12/21/2017 KARINA, MARTIN P[employer] HOUSE SUPERVISOR Ot F41.9 ANXIETY DISORDER, UNSPECIFIED 12/21/2017 KARINA, MARTIN P[employer] HOUSE SUPERVISOR Ot J45.909 UNSPECIFIED ASTHMA, UNCOMPLICATED 12/21/2017 KARINA, MARTIN P[employer] HOUSE SUPERVISOR Ot O21.9 VOMITING OF , UNSPECIFIED 12/21/2017 KARINA, MARTIN P[employer] HOUSE SUPERVISOR Ot O99.321 DRUG USE COMPLICATING , FIRST T 12/21/2017 KARINA, MARTIN P[employer] HOUSE SUPERVISOR Ot O99.341 OTH MENTAL DISORDERS COMPLICATING PREGNA 12/21/2017 KARINA, MARTIN P[employer] HOUSE SUPERVISOR Ot O99.511 DISEASES OF THE RESP SYS COMP , 12/21/2017 KARINA, MARTIN P[employer] HOUSE SUPERVISOR Ot Z3A.01 LESS THAN 8 WEEKS GESTATION OF 12/21/2017 KARINA, MARTIN P[employer] HOUSE SUPERVISOR Ot Z77.22 CNTCT W AND EXPSR TO ENVIRON TOBACCO SMO 12/21/2017 KARINA, MARTIN P[employer] HOUSE SUPERVISOR Ot Z87.01 PERSONAL HISTORY OF PNEUMONIA (RECURRENT 12/21/2017 KARINA, MARTIN P[employer] HOUSE SUPERVISOR Ot Z87.42 PERSONAL HISTORY OF OTH DISEASES OF THE 12/21/2017 KARINA, MARTIN P[employer] HOUSE SUPERVISOR Ot Z90.49 ACQUIRED ABSENCE OF OTHER SPECIFIED [...] OF OTHER SPECIFIED PART 01/28/2018 ANDERS GRAY CNC MANAGER Ot 787.01 NAUSEA WITH VOMITING 01/28/2018 ANDERS GRAY CNC MANAGER Ot 789.00 ABDOMINAL PAIN, UNSPECIFIED SITE 01/28/2018 [...] DIS AND OTH DI 01/28/2018 ERIKA LEWIS CNC MANAGER Ot Z87.01 PERSONAL HISTORY OF PNEUMONIA (RECURRENT [...] RESP SYS COMP , 02/08/2018 ERIKA LEWIS CNC MANAGER Ot Z3A.00 WEEKS OF GESTATION OF NOT SPEC 02/08/2018 ERIKA ELWIS CNC MANAGER Ot Z77.22 CNTCT W AND EXPSR TO ENVIRON TOBACCO SMO 02/08/2018 ERIKA LEWIS CNC MANAGER Ot Z82.49 FAMILY HX OF ISCHEM HEART DIS AND OTH DI 02/08/2018 ERIKA LEWIS CNC MANAGER Ot Z87.01 PERSONAL HISTORY OF PNEUMONIA (RECURRENT 02/08/2018 ERIKA LEWIS CNC MANAGER Ot Z87.448 PERSONAL HISTORY OF OTHER DISEASES OF UR 03/10/2018 FENECH DO, CASSY S Ot Z36.89 ENCOUNTER FOR OTHER SPECIFIED 03/10/2018 FENECH DO, CASSY S Ot Z3A.18 18 WEEKS GESTATION OF 03/20/2018 ANDERS GRAY CNC MANAGER Ot 787.01 NAUSEA WITH VOMITING 03/20/2018 ANDERS GRAY CNC MANAGER Ot 789.00 ABDOMINAL PAIN, UNSPECIFIED SITE 03/20/2018 [...] 18 WEEKS GESTATION OF 05/09/2018 ANDERS GRAY CNC MANAGER Ot 787.01 NAUSEA WITH VOMITING 05/09/2018 ANDERS GRAY CNC MANAGER Ot 789.00 ABDOMINAL PAIN, UNSPECIFIED SITE 05/09/2018 [...] Z3A.00 WEEKS OF GESTATION OF NOT SPEC 06/27/2018 RAINE KOENIGCASSY Ot O21.2 LATE VOMITING OF 06/27/2018 RAINE KOENIGCASSY Ot Z3A.34 34 WEEKS GESTATION OF 06/29/2018 RAINE KOENIGCASSY Ot O21.2 LATE VOMITING OF 06/29/2018 RAINE KOENIGCASSY Ot Z3A.34 34 WEEKS GESTATION OF 07/18/2018 GRIFFIN MARTIN DO Ot G43.A0 CYCLICAL VOMITING, NOT INTRACTABLE 07/18/2018 GRIFFIN MARTIN DO Ot O99.353 DISEASES OF THE NERVOUS SYS COMP PREGNAN 07/18/2018 GRIFFIN MARTIN DO Ot Z3A.37 37 WEEKS GESTATION OF 07/23/2018 CASSY NI DO Ot 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, UNCOMPLICATED 07/23/2018 CASSY NI DO Ot F12.10 CANNABIS ABUSE, UNCOMPLICATED 07/23/2018 CASSY NI DO Ot O21.8 OTHER VOMITING COMPLICATING 07/23/2018 CASSY NI DO Ot O36.5930 MATERN CARE FOR OTH OR SUSP POOR FETL GR 07/23/2018 CASSY NI DO Ot O69.1XX0 LABOR AND DELIVERY COMP BY CORD AROUND N 07/23/2018 CASSY NI DO Ot O76 ABNLT IN HEART RATE AND RHYTHM COM 07/23/2018 CASSY NI DO Ot O99.324 DRUG USE COMPLICATING CHILDBIRTH 07/23/2018 CASSY NI DO Ot Z23 ENCOUNTER FOR IMMUNIZATION 07/23/2018 CASSY NI DO Ot Z37.0 SINGLE LIVE 07/23/2018 CASSY NI DO Ot Z3A.38 38 WEEKS GESTATION OF 07/28/2018 GRIFFIN MARTIN DO Ot G43.A0 CYCLICAL VOMITING, NOT INTRACTABLE 07/28/2018 GRIFFIN MARTIN DO Ot O99.353 DISEASES OF THE NERVOUS SYS COMP PREGNAN 07/28/2018 GRIFFIN MARTIN DO C Ot Z3A.37 37 WEEKS GESTATION OF 07/30/2018 GRIFFIN MARTIN DO Ot G43.A0 CYCLICAL VOMITING, NOT INTRACTABLE 07/30/2018 MARTIN DOGRIFFIN C Ot O99.353 DISEASES OF THE NERVOUS SYS COMP PREGNAN 07/30/2018 GRIFFIN MARTIN DO Ot Z3A.37 37 WEEKS GESTATION OF Procedures Code Description [place] [address] STREP A (IN-HOUSE) 11/05/2012 52270 UA LONG DIP 07/14/2013 90686 URINE TEST (IN- HOUSE) 07/14/2013 07438 ROUTINE VENIPUNCTURE 09/28/2013 14150 H PYLORI (IN-HOUSE) 09/28/2013 24698 ESR/SED RATE 09/28/2013 36130 US GALLBLADDER ULTRASOUND 09/29/2013 11596 CBC W/MANUAL DIF (order) 09/29/2013 [id number] COMPLETE BLOOD COUNT NO DIFF (CBC Result) 09/29/2013 93066 DIFFERENTIAL WBC COUNT (CBC DIFF RESULT) 09/29/2013 19644 CRP 09/29/2013 18619 CELIAC DISEASE ANALYZER 09/30/2013 93829 H PYLORI (IN-HOUSE) 10/27/2013 45.16 ESOPHAGOGASTRODUODENOSCOPY [ EGD] W/CLOSE 10/31/2013 51.23 LAPAROSCOPIC CHOLECYSTECTOMY 11/02/2013 76050 URINE DRUG SCREEN (IN-HOUSE ) 11/17/2013 20660 TEST, URINE (IN- HOUSE) 11/17/2013 47.01 LAPAROSCOP APPENDECTOMY 12/05/2013 65.25 OT LAPAROSCOP LOCAL EXCIS/ DESTRUCT OVAR 12/05/2013 66.61 DESTROY FALLOP TUBE LES 12/05/2013 69.19 DESTRUC UTER SUPPORT NEC 12/05/2013 70.32 EXCIS CUL-DE-SAC LESION 12/05/2013 GASTROENT [facility], GI 12/14/2013 45781 TEST, URINE (IN- HOUSE) 07/12/2014 FAMILY RI ANDERS GRAY 07/30/2014 65530 TB TEST INTRADERMAL 09/20/2014 [id number] INTRODUCE OTH THERAP SUBST IN MOUTH/PHAR 07/20/2018 [id number] DIVISION OF FEMALE PERINEUM, EXTERNAL AP 07/21/2018 [id number] EXTRACTION OF PRODUCTS OF CONCEPT[place], [place] 07/21/2018 Results Test Result Range Complete blood count [...] culture - 08/14/16 06:00 Bacterial urine culture [id number] NRG COLONY COUNT 10,000/ML - 100,000/ML NRG [...] group - 12/15/17 18:17 ABO+Rh group OP NR Whole blood basic metabolic panel - 12/15/17 [...] 18:17 Serum or plasma choriogonadotropin measurement (units/volume) 50691 m[iU]/mL <5 Complete blood count (CBC) with [...] identification in genital specimen by aerobe culture [id number] NRG Microscopic examination by wet preparation - [...] 15:30 Serum or plasma choriogonadotropin measurement (units/volume) 17855 m[iU]/mL <5 Urine drug screening test - [...] in urine Negative NRG Serum or plasma [id number],6-dlgpvihk-3,3-diphenylpyrrolidine (eddp) detection Negative NRG Urine opiates detection Positive NRG Urine phencyclidine (PCP) detection Negative NRG Propoxyphene [mass/volume] in urine Negative NRG Urine salicylates measurement (mass/volume) Negative NRG Urine tetrahydrocannabinol detection by screening method Positive NRG Bacterial urine culture - 01/28/18 13:06 Bacterial urine culture [id number] NRG COLONY COUNT 10,000/ML - 100,000/ML NRG [...] Complete urinalysis with reflex to culture - 07/20/18 12:50 Urine color determination YELLOW NRG Urine clarity [...] NO NRG Urine drug screening test - 07/20/18 12:50 Urine phencyclidine detection by screening method NEGATIVE [...] automated white blood cell (WBC) differential - 07/20/18 14:39 Blood leukocytes automated count (number/volume) 9.4 10*3/uL 4.3-11.0 Blood erythrocytes automated count (number/volume) 3.36 10*6/uL 4.35-5.85 Venous blood hemoglobin measurement (mass/volume) 10.4 g/dL 11.5-16.0 Blood hematocrit (volume fraction) 30 % 35-52 Automated erythrocyte mean corpuscular volume 91 [foz_us] 80-99 Automated erythrocyte mean corpuscular hemoglobin (mass per erythrocyte) 31 pg 25-34 Automated erythrocyte mean corpuscular hemoglobin concentration measurement ( mass/volume) 34 g/dL 32-36 Automated erythrocyte distribution width ratio 13.2 % 10.0-14.5 Automated blood platelet count (count/volume) 255 10*3/uL 130-400 Automated blood platelet mean volume measurement 10.1 [foz_us] 7.4-10.4 Automated blood neutrophils/100 leukocytes 74 % 42-75 Automated blood lymphocytes/100 leukocytes 20 % 12-44 Blood monocytes/100 leukocytes 6 % 0-12 Automated blood eosinophils/100 leukocytes 0 % 0-10 Automated blood basophils/100 leukocytes 0 % 0-10 Blood neutrophils automated count (number/volume) 7.0 10*3 1.8-7.8 Blood lymphocytes automated count (number/volume) 1.9 10*3 1.0-4.0 Blood monocytes automated count (number/volume) 0.5 10*3 0.0-1.0 Automated eosinophil count 0.0 10*3/uL 0.0-0.3 Automated blood basophil count (count/volume) 0.0 10*3/uL 0.0-0.1 Blood type T Indirect antibody screen panel - 07/20/18 14:39 ABO+Rh group OP NRG Transfusion band number [id number] NRG Blood group antibody screen NEGATIVE NRG Complete blood count (CBC) with automated white blood cell (WBC) differential - 07/22/18 05:45 Blood leukocytes automated count (number/volume) 11.2 10*3/uL 4.3-11.0 Blood erythrocytes automated count (number/volume) 3.36 10*6/uL 4.35-5.85 Venous blood hemoglobin measurement (mass/volume) 10.5 g/dL 11.5-16.0 Blood hematocrit (volume fraction) 30 % 35-52 Automated erythrocyte mean corpuscular volume 91 [fo_us] 80-99 Automated erythrocyte mean corpuscular hemoglobin (mass per erythrocyte) 31 pg 25-34 Automated erythrocyte mean corpuscular hemoglobin concentration measurement ( mass/volume) 35 g/dL 32-36 Automated erythrocyte distribution width ratio 13.1 % 10.0-14.5 Automated blood platelet count (count/volume) 226 10*3/uL 130-400 Automated blood platelet mean volume measurement 9.8 [foz_us] 7.4-10.4 Automated blood neutrophils/100 leukocytes 66 % 42-75 Automated blood lymphocytes/100 leukocytes 26 % 12-44 Blood monocytes/100 leukocytes 6 % 0-12 Automated blood eosinophils/100 leukocytes 1 % 0-10 Automated blood basophils/100 leukocytes 0 % 0-10 Blood neutrophils automated count (number/volume) 7.4 10*3 1.8-7.8 Blood lymphocytes automated count (number/volume) 2.9 10*3 1.0-4.0 Blood monocytes automated count (number/volume) 0.7 10*3 0.0-1.0 Automated eosinophil count 0.1 10*3/uL 0.0-0.3 Automated blood basophil count (count/volume) 0.0 10*3/uL 0.0-0.1 Encounters ACCT No. Visit Date/Time Discharge Status Pt. Type Provider Facility Loc./Unit Complaint [id number] 09/20/2014 10:53:00 09/20/2014 23:59:59 CLS Outpatient FELICITY HIRSCH APRN [id number] 07/28/2014 14:45:00 07/28/2014 23:59:59 CLS Outpatient JEAN NOYOLA MD [id number] 07/12/2014 11:53:00 07/12/2014 23:59:59 CLS Outpatient FELICITY HIRSCH APRN [id number] 01/18/2014 13:03:00 01/18/2014 23:59:59 CLS Outpatient CAYDEN RAZA DO [id number] 12/14/2013 15:32:00 12/14/2013 23:59:59 CLS Outpatient ALPHONSE ARDON MD [id number] 11/17/2013 10:52:00 11/17/2013 23:59:59 CLS Outpatient LENCHO BOWERS APRN [id number] 10/27/2013 17:14:00 10/27/2013 23:59:59 CLS Outpatient LENCHO BOWERS APRN [id number] 09/28/2013 16:40:00 09/28/2013 23:59:59 CLS Outpatient JEAN NOYOLA MD [id number] 09/06/2013 10:41:00 09/06/2013 23:59:59 CLS Outpatient JEAN NOYOLA MD [id number] 08/23/2013 10:52:00 08/23/2013 23:59:59 CLS Outpatient JEAN NOYOLA MD [id number] 08/08/2013 17:51:00 08/08/2013 23:59:59 CLS Outpatient CAYDEN RZAA DO [id number] 07/14/2013 13:19:00 07/14/2013 23:59:59 CLS Outpatient LENCHO BOWERS APRN [id number] 11/11/2012 14:11:00 11/11/2012 23:59:59 CLS Outpatient [id number] 11/05/2012 14:42:00 11/05/2012 23:59:59 CLS Outpatient [facility] 05/20/2015 11:05:33 ACT Document Registration [id number] 07/20/2018 12:45:00 07/23/2018 13:00:00 DIS Inpatient CASSY NI DO [facility] LDRP ABD PAIN [id number] 07/18/2018 11:08:00 07/18/2018 12:15:00 DIS Outpatient MARTIN GRIFFIN [facility] ABD PAIN [id number] 06/27/2018 10:20:00 06/27/2018 11:40:00 DIS Outpatient CASSY NI DO [facility] WSo PAIN [id number] 06/09/2018 09:44:00 06/10/2018 14:00:00 DIS Inpatient CASSY NI DO [facility] LDRP VOMITING,ABD PAIN [id number] 06/08/2018 10:59:00 06/08/2018 19:55:00 DIS Outpatient MARTINGRIFFIN Daniel DO [facility] A[facility]/VOMITING [id number] 05/09/2018 11:40:00 05/09/2018 13:26:00 DIS Outpatient DONNA ABDULLAHI MD [facility] N/V,ABD PAIN [id number] 03/20/2018 15:06:00 03/20/2018 19:38:00 DIS Outpatient DONNA ABDULLAHI MD [facility] VOMITING/STOMACH PAIN [id number] 03/09/2018 13:18:00 03/09/2018 23:59:59 CLS Outpatient CASSY NI DO [facility] RAD [id number] 02/05/2018 15:56:00 02/05/2018 18:30:00 DIS Emergency ERIKA LEWIS APRN [facility] ER VOMITING;4MO [id number] 01/28/2018 12:08:00 01/28/2018 13:40:00 DIS Emergency ERIKA LEWIS APRN [facility] ER ABD PAIN [id number] 12/21/2017 14:07:00 12/21/2017 18:24:00 DIS Emergency ORLANDO MCDUFFIE [facility] ER VOMITING [id number] 12/19/2017 10:51:00 12/19/2017 16:21:00 DIS Emergency KARINA MARTIN OLIVEIRAP [facility] ER VOMITING [id number] 12/17/2017 10:06:00 12/17/2017 11:05:00 DIS Emergency ERIKA LEWIS APRN [facility] ER VOMITING [id number] 12/16/2017 12:22:00 12/16/2017 15:14:00 DIS Emergency ERIKA LEWIS APRN [facility] ER VOMITING [id number] 12/15/2017 17:45:00 12/15/2017 20:30:00 DIS Emergency MAINOR DO, ZOHREH K [facility] ER ABD PAIN; 5-6 WKS [id number] 12/09/2017 20:54:00 12/09/2017 23:40:00 DIS Emergency ORLANDO MCDUFFIE [facility] ER EDOMETRIOSIS [id number] 11/30/2017 12:31:00 11/30/2017 14:57:00 DIS Emergency DONNA MOHAMUD MD [facility] ER PELVIC PAIN/SWELLING [id number] 08/15/2016 19:40:00 08/15/2016 22:44:00 DIS Emergency ERIKA LEWIS APRN [facility] ER STOMACH PAIN VOMITING [id number] 08/14/2016 04:53:00 08/14/2016 07:02:00 DIS Emergency DONNA MOHAMUD MD [facility] ER ABD PAIN [id number] 08/12/2016 13:32:00 08/12/2016 13:53:00 DIS Emergency ERIKA LEWIS APRN [facility] ER ABSCESS IN PELVIC AREA [id number] 08/10/2016 15:28:00 08/10/2016 17:04:00 DIS Emergency ORLANDO MCDUFFIE [facility] ER POSS MRSA IN PELVIC AREA [id number] 06/11/2016 23:33:00 06/12/2016 00:46:00 DIS Emergency ZOHREH HAYWARD DO K [facility] ER POSS BRONCHITIS [id number] 03/01/2016 13:10:00 03/01/2016 13:28:00 DIS Emergency ORLANDO MCDUFFIE [facility] ER TUBE REMOVAL [id number] 02/25/2016 17:02:00 02/25/2016 18:03:00 DIS Emergency ORLANDO MCDUFFIE [facility] ER WOUND CHECK [id number] 02/22/2016 12:02:00 02/22/2016 15:23:00 DIS Emergency ERIKA LEWIS APRN [facility] ER ABCESS ON BUTTOCKS [id number] 02/18/2016 17:25:00 02/18/2016 18:34:00 DIS Emergency MYNOR GUILLAUME MD [facility] ER SKIN RASH/WOUND [id number] 12/11/2015 17:28:00 12/11/2015 19:48:00 DIS Emergency ORLANDO MCDUFFIE [facility] ER ABD PAIN [id number] 12/10/2015 09:39:00 12/10/2015 13:21:00 DIS Emergency DONNA MOHAMUD MD [facility] ER ABD PAIN/VOMITING [id number] 10/10/2015 07:47:00 10/10/2015 11:21:00 DIS Emergency MYNOR GUILLAUME MD [facility] ER ABD PAIN [id number] 10/08/2015 14:37:00 10/08/2015 16:38:00 DIS Emergency DONNA MOHAMUD MD [facility] ER ABD PAIN [id number] 10/04/2015 12:02:00 10/04/2015 15:05:00 DIS Emergency ORLANDO MCDUFFIE [facility] ER STOMACH PAIN [id number] 09/29/2015 08:43:00 09/29/2015 13:13:00 DIS Emergency MYNOR GUILLAUME MD [facility] ER ABD PAIN [id number] 09/29/2015 01:21:00 09/29/2015 02:43:00 DIS Emergency MARYSOL GORDON DO [facility] ER ABDOMINAL CRAMPS [id number] 09/05/2015 03:51:00 09/05/2015 06:10:00 DIS Emergency MAINOR DO, ZOHREH K [facility] ER ABD PAIN [id number] 09/01/2015 21:17:00 09/01/2015 22:43:00 DIS Emergency MAINOR DO, ZOHREH K [facility] ER NAUSEA/VOMITING [id number] 08/20/2015 16:18:00 08/21/2015 11:06:00 DIS Inpatient JASON LOPEZ MD [facility] 4TH HYPOKALEMIA HYPONATREMIA ABD PAIN [id number] 08/14/2015 13:12:00 08/14/2015 15:36:00 DIS Emergency ERIKA LEWIS APRN [facility] ER VOMITING [id number] 05/20/2015 11:04:00 05/20/2015 13:53:00 DIS Emergency ERIKA LEWIS CNC MANAGER [facility] ER VOMITING [id number] 05/15/2015 16:05:00 05/15/2015 19:40:00 DIS Emergency ORLANDO MCDUFFIE [facility] ER N/V,ABD PAIN [id number] 05/10/2015 21:37:00 05/13/2015 10:55:00 DIS Inpatient JASON LOPEZ MD [facility] 4TH CYCLIC VOMITING [id number] 04/21/2015 13:36:00 04/21/2015 17:38:00 DIS Emergency ORLANDO MCDUFFIE [facility] ER VOMTITING [id number] 04/17/2015 16:18:00 04/17/2015 18:40:00 DIS Emergency ORLANDO MCDUFFIE [facility] ER VOMITING [id number] 04/13/2015 19:30:00 04/15/2015 11:55:00 DIS Inpatient JEAN NOYOLA MD [facility] SURGICAL INTRACTABLE N/V, DEHYDRATION [id number] 04/11/2015 11:02:00 04/11/2015 13:30:00 DIS Emergency ERIKA LEWIS APRN [facility] ER VOMITING [id number] 10/04/2014 10:43:00 10/04/2014 11:12:00 DIS Emergency BESS BARRETT MD [facility] ER COUGH/CONGESTION SORE THROAT [id number] 09/05/2014 17:37:00 09/05/2014 19:56:00 DIS Emergency DONNA MOHAMUD MD [facility] ER VOMTITING [id number] 12/18/2013 16:38:00 12/21/2013 15:50:00 DIS Inpatient JEAN NOYOLA MD [facility] 4TH INTRACTABLE VOMITING [id number] 11/30/2013 15:00:00 12/07/2013 14:45:00 DIS Inpatient JEAN NOYOLA MD [facility] 4TH INTRACTABLE VOMITING AND ABD PAIN UTI [id number] 11/29/2013 12:46:00 11/29/2013 16:59:00 DIS Emergency ERIKA LEWIS APRN [facility] ER VOMITING [id number] 10/31/2013 15:12:00 11/02/2013 19:30:00 DIS Inpatient LEAH LEYVA MD [facility] 4TH CHRONIC ABD PAIN;NAUSEA/ VOMITING;BILIARY DYSKENISA [id number] 10/25/2013 08:26:00 10/25/2013 23:59:59 CLS Outpatient ANDERS GRAY APRN [facility] RAD NAUSEA/VOMITING ABDOMINAL PAIN [id number] 08/17/2013 22:59:00 08/18/2013 19:50:00 DIS Inpatient JEAN NOYOLA MD [facility] 4TH INTRACTABLE N/V, LEUKOCYTOSIS,ELECTROLYTE DISTURBA [id number] 08/17/2013 15:20:00 08/17/2013 18:30:00 DIS Emergency ERIKA LEWIS APRN [facility] ER MULTIPLE COMPLAINTS [id number] 03/23/2013 16:10:00 03/23/2013 23:59:59 CLS Outpatient [id number] 08/21/2018 11:51:00 ACT Emergency AILYN REDMAN, MARIA G Marcum [facility] ER ABD PAIN [id number] 01/15/2016 12:41:00 Document Registration [id number] 09/05/2014 17:37:00 Document Registration [id number] 02/06/2011 18:18:00 Document Registration [id number] 08/14/2009 11:15:00 Document Registration [id number] 06/27/2009 10:07:00 Document Registration
[2018-08-21 12:15] LABS: BILIRUBIN,URINE NEGATIVE (NEGATIVE); CLARITY,URINE VERY CLOUDY; COLOR,URINE YELLOW; GLUCOSE, URINE (UA) NEGATIVE (NEGATIVE); KETONES,URINE 3+ (NEGATIVE); LEUKOCYTE ESTERASE ,URINE 2+ (NEGATIVE); NITRITE,URINE NEGATIVE (NEGATIVE); PH,URINE 5 (5-9); PROTEIN,URINE 2+ (NEGATIVE); UROBILINOGEN,URINE 1 MG/DL (NORMAL)
[2018-08-21 12:19] LABS: BASOPHILS % (AUTO) 0 % (0-10); EOSINOPHILS % (AUTO) 0 % (0-10); HEMATOCRIT 39 % (35-52); HEMOGLOBIN 13.2 G/DL (11.5-16.0); LYMPHOCYTES # (AUTO) 1.5 X 10^3 (1.0-4.0); LYMPHOCYTES % (AUTO) 22 % (12-44); MEAN CORPUSCULAR HEMOGLOBIN 30 PG (25-34); MEAN CORPUSCULAR HGB CONC 34 G/DL (32-36); MEAN CORPUSCULAR VOLUME 89 FL (80-99); MEAN PLATELET VOLUME 9.7 FL (7.4-10.4); MONOCYTES # (AUTO) 0.3 X 10^3 (0.0-1.0); MONOCYTES % (AUTO) 4 % (0-12); NEUTROPHILS # (AUTO) 4.8 X 10^3 (1.8-7.8); NEUTROPHILS % (AUTO) 73 % (42-75); PLATELET COUNT 316 10^3/uL (130-400); RED BLOOD COUNT 4.36 10^6/uL (4.35-5.85); RED CELL DISTRIBUTION WIDTH 12.7 % (10.0-14.5); WHITE BLOOD COUNT 6.6 10^3/uL (4.3-11.0)
[2018-08-21 12:24] LABS: BACTERIA,URINE MODERATE /HPF
[2018-08-21 12:25] LABS: AMORPHOUS SEDIMENT,UR MOD AMOR URATES /LPF
[2018-08-21 12:31] LABS: ALANINE AMINOTRANSFERASE 10 U/L (0-55); ALBUMIN 4.5 GM/DL (3.2-4.5); ALKALINE PHOSPHATASE 76 U/L (40-136); BILIRUBIN,TOTAL 0.5 MG/DL (0.1-1.0); BUN/CREATININE RATIO 12; CALCIUM 9.8 MG/DL (8.5-10.1); CARBON DIOXIDE 17 MMOL/L (21-32); CHLORIDE 110 MMOL/L (98-107); CREATININE SERUM 0.65 MG/DL (0.60-1.30); GFR ESTIMATED > 60; GLUCOSE 97 MG/DL (70-105); LIPASE 8 U/L (8-78); MAGNESIUM 1.8 MG/DL (1.8-2.4); POTASSIUM 3.7 MMOL/L (3.6-5.0); SODIUM 141 MMOL/L (135-145); TOTAL PROTEIN 7.3 GM/DL (6.4-8.2)
[2018-08-21 12:37] LABS: AMPHETAMINE SCREEN, URINE NEGATIVE (NEGATIVE); BARBITURATE SCREEN URINE NEGATIVE (NEGATIVE); BENZODIAZEPINES SCREEN URINE NEGATIVE (NEGATIVE); CANNABINOID SCREEN, URINE POSITIVE (NEGATIVE); COCAINE SCREEN URINE NEGATIVE (NEGATIVE); METHADONE STAT NEGATIVE (NEGATIVE); METHAMPHETAMINE SCREEN URINE S NEGATIVE (NEGATIVE); OPIATE SCREEN URINE POSITIVE (NEGATIVE); OXYCODONE STAT NEGATIVE (NEGATIVE); PROPOXYPHENE STAT NEGATIVE (NEGATIVE); TRICYCLIC ANTIDEPRESSANTS SCRE NEGATIVE (NEGATIVE)
[2018-08-21] MEDS ORDERED: fentaNYL INJECTION 100 MCG/2 ML AMP IVP ONE (13:00)
[2018-08-21] MEDS ORDERED: NS 250 ML (IVPB) BAG IV ONE (13:45)
[2018-08-21] MEDS ORDERED: CATHETER FLUSH 10 ML SYR IV PRN (13:45)
[2018-08-21] MEDS ORDERED: PROMETHAZINE INJ 25 MG/ML (PHENERGAN) AMP IVP ONE (13:45)
[2018-08-21] MEDS ORDERED: cefTRIAXone FOR IV USE 1,000 MG in NS (IVPB) 50 ML IV ONE (13:45)
[2018-08-21] MEDS ORDERED: RECEIVED CONTRAST (Hold Metformin) IV SCH (13:45)
[2018-08-21] MEDS ORDERED: IOHEXOL 350 MG/ML 100 ML (OMNIPAQUE 350) VIAL IV ONE (13:45)
[2018-08-21] MEDS ORDERED: AZITHROMYCIN 250 MG TAB (ZITHROMAX) PO ONE (15:00)
--- NOTE | 2018-08-21 15:19 | Diagnostic Imaging Report ---
PROCEDURE: CT abdomen and pelvis with contrast. TECHNIQUE: Multiple contiguous axial images were obtained through the abdomen and pelvis after administration of intravenous contrast. INDICATION: Abdominal pain and vomiting. FINDINGS: The previous CT abdomen/pelvis exam of 12/10/2015 noted slight distention of the proximal jejunum with fluid and raised the question of enteritis. On this study, the small bowel does not appear to be abnormally distended by fluid or gas. There is no sign of a bowel obstruction or enteritis. The myometrium of the uterus does seem to be of diminished density when compared to the prior exam. This finding is nonspecific. The endometrial lining is thickened, measuring 24 mm (5 mm or less). Correlation with the patient's menstrual cycle recommended. If further evaluation of the uterus is desired, then ultrasound would be recommended. There is no solid pelvic mass or any significant free fluid collection identified. The appendix appears to be surgically absent. The liver, spleen, pancreas, adrenals, aorta and inferior vena cava show no sign of an acute abnormality. There is a 5 mm nonobstructive calculus within the left kidney. Both kidneys do show excretion of the contrast. The stomach is not well-distended and consequently difficult to assess. The lung bases are clear. The bone windows show no evidence for a fracture or for a destructive lesion. IMPRESSION: 1. There is no sign of recurrent enteritis and there is no evidence for a bowel obstruction. 2. The myometrium of the uterus does seem to be of diminished density when compared to the prior exam. This is of uncertain etiology. If further evaluation is desired, then ultrasound would be recommended. 3. There is no acute abnormality of the abdomen or pelvis otherwise. 4. The gallbladder and appendix are surgically absent. Dictated by: Dictated on workstation # [id number]
[2018-08-21] MEDS ORDERED: ONDN4T PO (15:34)
[2018-08-21] MEDS ORDERED: PROM25TA14 PO (17:22)
[2018-08-21] MEDS ORDERED: CEPH500T PO (17:22)
[2018-08-21 17:28] VITALS: BP 115/80
== END 2018-08-21 17:28 | disposition home or self-care (01) ==
LOC: EDUNIT# 11:50 → ER 11:51
DX: N39.0 Urinary tract infection, site not specified (principal); R11.0 Nausea; F11.20 Opioid dependence, uncomplicated; F12.20 Cannabis dependence, uncomplicated; J45.909 Unspecified asthma, uncomplicated; F41.9 Anxiety disorder, unspecified; F32.9 Major depressive disorder, single episode, unspecified; F17.210 Nicotine dependence, cigarettes, uncomplicated; Z90.89 Acquired absence of other organs; Z87.448 Personal history of other diseases of urinary system; Z82.49 Family history of ischemic heart disease and other diseases of the circulatory system; Z87.01 Personal history of pneumonia (recurrent)
CPT/HCPCS: 36415; 74177; 80053; 80306; 80320; 81000; 83690; 83735; 84703; 85025; 86308; 87088

== ENCOUNTER 2018-08-23 09:07 | Emergency (ER) | payer MEDICAID ==
[~2018-08-23] VITALS: Ht 160 cm; Wt 52.2 kg
[~2018-08-23 09:07] MED LIST changes: +CEPH500T PO; +ONDN4T PO; +PROM25TA14 PO
[2018-08-23] MEDS ORDERED: LACTATED RINGERS 1,000 ML IV ONE (09:17)
[2018-08-23 09:24] VITALS: BP 106/83
--- OUTSIDE RECORDS SUMMARY | 2018-08-23 09:26 | XMS REPORT | Clinical Summary ---
Author Author [facility] Organization [facility] Address Unknown Phone Unavailable Care Team Providers Care Investment Executive Name Role Phone Emergency, Nurse RN Unavailable Unavailable Reza Pillai MD PCP April Faust MD Unavailable Armida Trevino RN Unavailable Unavailable Jessy Love DO Unavailable Emil Overton MD Unavailable Source Comments Some departments are not documenting in the electronic medical record. If you do not see the information that you expected, contact Release of Information in the Health Information Management department at [phone] for further assistance in locating additional records.[facility] Allergies No Known Allergies Current Medications [...] vomiting syndrome 09/26/2015 Overview: Initial diagnosis in [id number] at [facility] Intractable nausea and vomiting 04/28/2015 Hyponatremia [...] Taken Blood Pressure 135/87 09/26/2015 1:02 PM [employer] Pulse 106 09/26/2015 1:02 PM [employer] Temperature 36.3 C (97.3 F) 09/26/2015 1:02 PM [employer] Respiratory Rate 16 09/26/2015 1:02 PM [employer] Oxygen Saturation 98% 05/01/2015 11:59 AM CDT Inhaled Oxygen - - Concentration Weight 54.4 kg (120 lb) 09/26/2015 1:02 PM [employer] Height 157.5 cm (5' 2") 09/26/2015 1:02 PM [employer] Body Mass Index 21.95 09/26/2015 1:02 PM [employer] Plan of Treatment Health Maintenance Due Date Last Done Comments PHYSICAL (COMPREHENSIVE) 2003 EXAM HPV VACCINES (1 of 3 - 2007 Female 3-dose series) PERTUSSIS VACCINE 2007 HIV SCREENING 2011 TETANUS VACCINE 2013 CERVICAL CANCER SCREENING 2017 INFLUENZA VACCINE 05/12/2018 Results Not on filefrom Last 3 Months
[2018-08-23] MEDS ORDERED: KETOROLAC 30 MG/ML VIAL IVP ONE (09:30)
[2018-08-23] MEDS ORDERED: ONDANSETRON 4 MG/2 ML (SDV) Z0FRAN IVP ONE (09:30)
[2018-08-23 09:36] LABS: BASOPHILS % (AUTO) 0 % (0-10); EOSINOPHILS % (AUTO) 0 % (0-10); HEMATOCRIT 41 % (35-52); HEMOGLOBIN 14.2 G/DL (11.5-16.0); LYMPHOCYTES # (AUTO) 1.4 X 10^3 (1.0-4.0); LYMPHOCYTES % (AUTO) 14 % (12-44); MEAN CORPUSCULAR HEMOGLOBIN 30 PG (25-34); MEAN CORPUSCULAR HGB CONC 35 G/DL (32-36); MEAN CORPUSCULAR VOLUME 87 FL (80-99); MEAN PLATELET VOLUME 9.6 FL (7.4-10.4); MONOCYTES # (AUTO) 0.3 X 10^3 (0.0-1.0); MONOCYTES % (AUTO) 3 % (0-12); NEUTROPHILS # (AUTO) 8.3 X 10^3 (1.8-7.8); NEUTROPHILS % (AUTO) 83 % (42-75); PLATELET COUNT 320 10^3/uL (130-400); RED BLOOD COUNT 4.74 10^6/uL (4.35-5.85)
--- NOTE | 2018-08-23 09:39 | ED Abdominal Pain ---
General Chief Complaint: Abdominal/GI Problems Stated Complaint: ABD. PAIN Nursing Triage Note: TO ROOM PER EMS FROM HOME WITH C/O NAUSEA VOMITING AND ABD PAIN Sepsis Screen: No Definite Risk Source of Information: Patient, EMS, Old Records Exam Limitations: No Limitations History of Present Illness Date Seen by Provider: Aug 23, 2018 Time Seen by Provider: 09:06 Initial Comments Patient presents to ER by EMS with chief complaint that she was at home having severe abdominal pain nausea vomiting for the past 3 days. She did take one of her suppository Phenergan but she has not picked up the Zofran or Phenergan tablets. She states she is not had any opiate medicines in the last 3 days since her last ER visit. She's having severe allover abdominal pain same as before. She has no discharge, dysuria, fevers, cough shortness of breath chest pain diarrhea or constipation. She had a bowel movement last night that she said was normal formed. The patient is 1 month . Allergies and Home Medications Allergies Coded Allergies: No Known Drug Allergies (Unverified , 01/12/16) Home Medications Cephalexin 500 Mg Tablet, 500 MG PO BID Prescribed by: MARIA G ROBERTSON on 08/21/18 172 Docusate Sodium 100 Mg Capsule, 100 MG PO BID PRN for CONSTIPATION-1ST LINE Prescribed by: CASSY NI on 07/22/18 08 Ferrous Sulfate 325 Mg Tablet, 325 MG PO DAILY@0800 Prescribed by: CASSY NI on 07/22/18 0807 Hydrocodone Bit/Acetaminophen 1 Tab Tab, 1 TAB PO Q4H PRN for PAIN-MODERATE Prescribed by: CASSY NI on 07/22/18 0807 Ibuprofen 600 Mg Tablet, 600 MG PO Q6H Prescribed by: CASSY NI on 07/22/18 0807 Ondansetron HCl 4 Mg Tab, 4 MG PO Q4H PRN for NAUSEA/VOMITING-1ST LINE Prescribed by: ERIKA LEWIS on 08/21/18 1534 Oik825/FA/Omega3/Dha/Fish Oil 1 Each Tab.chew, 2 EACH PO DAILY, (Reported) Promethazine HCl 25 Mg Tablet, 25 MG PO Q6H PRN for NAUSEA/VOMITING Prescribed by: MARIA G ROBERTSON on 08/21/18 1722 Patient Home Medication List Home Medication List Reviewed: Yes Review of Systems Review of Systems Constitutional: No chills, No diaphoresis, No fever EENTM: No Blurred Vision, No Double Vision Respiratory: Denies Cough, Denies Shortness of Air Cardiovascular: Denies Chest Pain, Denies Edema Gastrointestinal: See HPI; Denies Abdomen Distended; Abdominal Pain; Denies Constipated, Denies Diarrhea; Nausea, Poor Fluid Intake, Vomiting Genitourinary: Denies Burning, Denies Discharge Musculoskeletal: No back pain, No joint pain Skin: No pruritus, No rash Psychiatric/Neurological: Denies Headache, Denies Numbness Past [id number]-Tozqyl-Uetvqf Hx Patient Social History Alcohol Use: Denies Use Recreational Drug Use: Yes Drug of Choice: PAST HX marijuana Type Used: Cigarettes 2nd Hand Smoke Exposure: Yes Recent Foreign Travel: No Contact w/Someone Who Travel: No Recent Infectious Disease Expo: No Recent Hopitalizations: No Immunizations Up To Date Tetanus Booster (TDap): Less than 5yrs PED Vaccines UTD: Yes Date of Pneumonia Vaccine: Nov 12, 2013 Date of Influenza Vaccine: Sep 11, 2015 Seasonal Allergies Seasonal Allergies: No Past Medical History Surgeries: Yes (LAPAROSCOPY-OVARIAN CYST, ENDOMETRIOSIS; EGD) Abdominal, Appendectomy, Gallbladder Respiratory: Yes Asthma, Pneumonia Currently Using CPAP: No Currently Using BIPAP: No Cardiac: No Neurological: No Reproductive Disorders: Yes (LT OVARIAN CYST) Female 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, Ovarian Cyst Sexually Transmitted Disease: No HIV/AIDS: No Genitourinary: No Gastrointestinal: Yes (CHRONIC ABDOMINAL PAIN, CHRONIC N/V, CANNABIS HYPEREMESIS SYNDROME) Musculoskeletal: No Endocrine: No HEENT: No Cancer: No Psychosocial: Yes ("CYCLIC VOMITING", marijuana abuse) Sleep Difficulties, Anxiety, Depression Integumentary: No Blood Disorders: No Adverse Reaction/Blood Tranf: No Family Medical History Cancer GPA-DAD SIDE, Onset:Unknown Cataract GMA-DAD SIDE Dementia GPA-DAD SIDE Family history: Arthritis GPA-MOM SIDE Family history: Cardiovascular disease GMA-DAD SIDE (CAD STINTS) GMA-MOM SIDE (ENLARGED HEART DEFIBALATOR AND PACER) History of - respiratory disease GPA-DAD SIDE (EMPHYSEMA, COPD) No Family History of: AIDS Abdominal aortic aneurysm Abdominal aortic aneurysm Gillette's disease Fidel's disease Alcoholism Alcoholism Alzheimer's disease Aphasia Aphasia Arthritis Asthma Cancer of colon Cancer of mouth Cardiovascular disease Cataracts Chest pain Colon cancer Completed stroke Congenital disease Congenital heart disease Congenital heart disease Congestive heart failure Coronary thrombosis Cystic fibrosis Cystic fibrosis Deafness or hearing loss Diabetes mellitus Drug abuse Dysphagia Dysphasia Family history: Allergy Family history: Alzheimer's disease Family history: Asthma Family history: Breast disease Family history: Coronary thrombosis Family history: Diabetes mellitus Family history: Gastrointestinal disease Family history: Glaucoma Family history: Hypertension Family history: Osteoporosis Family history: Thyroid disorder Fibrocystic disease of breast Gastroenteritis Glaucoma Headache Hearing loss Heart disease Hereditary disease History of - anemia History of - disorder History of drug abuse Human immunodeficiency virus (HIV) seropositivity Hypercholesterolemia Hypercholesterolemia Infertile Kidney disease Malignant neoplasm of lung Myocardial infarction Parkinson's disease Prostate cancer Psychotic disorder Seizure disorder Severe allergy Stroke Thyroid disease Tuberculosis Tuberculosis Visual disorder Visual impairment No Pertinent Family Hx Physical Exam Vital Signs Vital Signs - First Documented 08/23/18 09:07 Temp 98.2 Pulse 105 Resp 20 B/P (MAP) 123/91 (102) Pulse Ox 96 O2 Delivery Room Air Capillary Refill : Less Than 3 Seconds Height/Weight/BMI Height: 5'3.00" Weight: 115lbs. 0.8oz. [id number]; 22.1 BMI Method:Stated General Appearance: WD/WN, mild distress HEENT: PERRL/EOMI, pharynx normal Neck: non-tender, supple, normal inspection Respiratory: chest non-tender, lungs clear, normal breath sounds, no respiratory distress, no accessory muscle use Cardiovascular: normal peripheral pulses, regular rate, rhythm, no edema Gastrointestinal: normal bowel sounds, guarding (voluntary), tenderness ( diffuse) Extremities: normal range of motion, non-tender, normal capillary refill Neurologic/Psychiatric: alert, normal mood/affect, oriented x 3 Skin: normal color, warm/dry Progress/Results/Core Measures Results/Orders Lab Results Laboratory Tests Test 08/23/18 09:17 08/23/18 11:26 Range/Units White Blood Count 10.0 4.3-11.0 10^3/uL Red Blood Count 4.74 4.35-5.85 10^6/uL Hemoglobin 14.2 11.5-16.0 G/DL Hematocrit 41 35-52 % Mean Corpuscular Volume 87 80-99 FL Mean Corpuscular Hemoglobin 30 25-34 PG Mean Corpuscular Hemoglobin Concent 35 32-36 G/DL Red Cell Distribution Width 13.0 10.0-14.5 % Platelet Count 320 130-400 10^3/uL Mean Platelet Volume 9.6 7.4-10.4 FL Neutrophils (%) (Auto) 83 H 42-75 % Lymphocytes (%) (Auto) 14 12-44 % Monocytes (%) (Auto) 3 0-12 % Eosinophils (%) (Auto) 0 0-10 % Basophils (%) (Auto) 0 0-10 % Neutrophils # (Auto) 8.3 H 1.8-7.8 X 10^3 Lymphocytes # (Auto) 1.4 1.0-4.0 X 10^3 Monocytes # (Auto) 0.3 0.0-1.0 X 10^3 Eosinophils # (Auto) 0.0 0.0-0.3 10^3/uL Basophils # (Auto) 0.0 0.0-0.1 10^3/uL Sodium Level 135 135-145 MMOL/L Potassium Level 2.9 L 3.6-5.0 MMOL/L Chloride Level 97 L 98-107 MMOL/L Carbon Dioxide Level 22 21-32 MMOL/L Anion Gap 16 H 5-14 MMOL/L Blood Urea Nitrogen 12 7-18 MG/DL Creatinine 0.72 0.60-1.30 MG/DL Estimat Glomerular Filtration Rate > 60 BUN/Creatinine Ratio 17 Glucose Level 106 H 70-105 MG/DL Calcium Level 9.9 8.5-10.1 MG/DL Corrected Calcium 8.5-10.1 MG/DL Magnesium Level 1.8 1.8-2.4 MG/DL Total Bilirubin 1.0 0.1-1.0 MG/DL Aspartate Amino Transf (AST/SGOT) 14 5-34 U/L Alanine Aminotransferase (ALT/SGPT) 10 0-55 U/L Alkaline Phosphatase 73 40-136 U/L C-Reactive Protein High Sensitivity 0.03 0.00-0.50 MG/DL Total Protein 7.6 6.4-8.2 GM/DL Albumin 4.7 H 3.2-4.5 GM/DL Amylase Level 45 25-125 U/L Lipase 11 8-78 U/L Serum Test, Qualitative NEGATIVE NEGATIVE Urine Color YELLOW Urine Clarity SLIGHTLY CLOUDY Urine pH 8 5-9 Urine Specific [place] 1.015 L 1.016-1.022 Urine Protein 2+ H NEGATIVE Urine Glucose (UA) NEGATIVE NEGATIVE Urine Ketones 4+ H NEGATIVE Urine Nitrite NEGATIVE NEGATIVE Urine Bilirubin NEGATIVE NEGATIVE Urine Urobilinogen 1 NORMAL MG/DL Urine Leukocyte Esterase 2+ H NEGATIVE Urine RBC (Auto) NEGATIVE NEGATIVE Urine RBC NONE /HPF Urine WBC 2-5 /HPF Urine Squamous Epithelial Cells 25-50 H /HPF Urine Crystals NONE /LPF Urine Bacteria FEW H /HPF Urine Casts NONE /LPF Urine Mucus MODERATE H /LPF Urine Culture Indicated NO Urine Opiates Screen POSITIVE H NEGATIVE Urine Oxycodone Screen NEGATIVE NEGATIVE Urine Methadone Screen NEGATIVE NEGATIVE Urine Propoxyphene Screen NEGATIVE NEGATIVE Urine Barbiturates Screen NEGATIVE NEGATIVE Ur Tricyclic Antidepressants Screen NEGATIVE NEGATIVE Urine Phencyclidine Screen NEGATIVE NEGATIVE Urine Amphetamines Screen NEGATIVE NEGATIVE Urine Methamphetamines Screen NEGATIVE NEGATIVE Urine Benzodiazepines Screen NEGATIVE NEGATIVE Urine Cocaine Screen NEGATIVE NEGATIVE Urine Cannabinoids Screen POSITIVE H NEGATIVE My Orders Orders - MARIA G ROBERTSON Amylase (08/23/18 09:17) Cbc With Automated Diff (08/23/18 09:17) Comprehensive Metabolic Panel (08/23/18 09:17) Hs C Reactive Protein (08/23/18 09:17) Drug Screen Stat (Urine) (08/23/18 09:17) Hcg,Qualitative Serum (08/23/18 09:17) Lipase (08/23/18 09:17) Magnesium (08/23/18 09:17) Ua Culture If Indicated (08/23/18 09:17) Saline Lock/Iv-Start (08/23/18 09:17) Lactated Ringers (Lr 1000 Ml Iv Solution (08/23/18 09:17) Ondansetron Injection (Zofran Injectio (08/23/18 09:30) Ketorolac Injection (Toradol Injection) (08/23/18 09:30) Chest 1 View, Ap/Pa Only (08/23/18 10:14) Abdomen/Kub 1view (08/23/18 10:14) Potassium Cl 10meq/50ml Ivpb (Kcl 10 Meq (08/23/18 10:15) Neis Alan Dna Urine Test (08/23/18 10:17) Chlamydia Trachomatis Urine (08/23/18 10:17) Azithromycin Tablet (Zithromax Tablet) (08/23/18 11:45) Acetaminophen Tablet (Tylenol Tablet) (08/23/18 11:45) Metoclopramide Injection (Reglan Injecti (08/23/18 11:45) Medications Given in ED Current Medications Medications Dose Ordered Sig/Dani Route Start Time Stop Time Status Last Admin Dose Admin Ketorolac Tromethamine 30 mg ONCE ONCE IVP 08/23/18 09:30 08/23/18 09:31 DC 08/23/18 09:41 30 MG Lactated Ringer's 1,000 ml @ 0 mls/hr Q0M ONCE IV 08/23/18 09:17 08/23/18 09:31 DC 08/23/18 09:38 1,000 MLS/HR Metoclopramide HCl 10 mg ONCE ONCE IVP 08/23/18 11:45 08/23/18 11:46 DC 08/23/18 11:50 10 MG Ondansetron HCl 8 mg ONCE ONCE IVP 08/23/18 09:30 08/23/18 09:31 DC 08/23/18 09:39 8 MG Potassium Chloride 50 ml @ 50 mls/hr ONCE ONCE IV 08/23/18 10:15 08/23/18 11:14 DC 08/23/18 10:29 50 MLS/HR Vital Signs/I&O 08/23/18 08/23/18 09:07 09:24 Temp 98.2 Pulse 105 66 Resp 20 18 B/P (MAP) 123/91 (102) 106/83 (91) Pulse Ox 96 66 O2 Delivery Room Air Room Air Blood Pressure Mean: 91 Progress Progress Note #1: Time: 09:41 Progress Note Blood obtain labs and urine to include lipase, amylase. She does have a CT scan reviewed few days ago. No pathology was seen at that time. Her heart rate was elevated 103 when she got here however we put a nonrebreather on her because she was breathing fast and after she had a moment to calm down her heart rate was in the mid 60s to 70. We took the nonrebreather off of her after about 5 minutes. She is oxygenating well and the mid 90s. Her blood pressure is good. We 'll give her a liter of fluids since she's and vomiting and EMS reports she did have a little bit of yellow bilious vomiting. We'll use Toradol and Phenergan. Progress Note #2: Time: 11:31 Progress Note We discussed the patient's pain and the patient and I both agree that with a again a repeat negative workup that her symptoms are because of cyclical vomiting syndrome. I have encouraged her that she needs to stop using marijuana as that is often tied to this. She says she's had this problem since she was 17 and using opiates for it. Before her [employer] provider's opiates she was provided by Dr. estes. She says the reason she is not been back to see him is because of transportation. I encourage her strongly not to use opiate medications however since there is no emergent findings support the level of her symptoms and she received no relief from the Toradol we will give her a gram of Tylenol. Her nausea has improved. I will provide her with a one-time prescription of hydrocodone that she is to use to tide her over to get an appointment with follow-up with Dr. Estes. I have explained her to an appropriate to receive chronic opiates through the ER. Encourage her to follow up with primary care as this is a chronic problem it's been going on for years and there is nothing further will be able to do to help her with this chronic problem. She did produce a urine specimen and we will see the results of that. She did not get her azithromycin from last visit. The GC chlamydia also was not obtained secondary to a lab problem. I reordered it for today and we'll give her azithromycin today on the off chance that her symptoms are from pelvic inflammatory disease. She has already received a gram or Rocephin 2 days ago. We discussed her other lab findings and imaging findings. Progress Note #3: Time: 12:24 Progress Note Despite the patient saying the Reglan did not help her pain or her nausea she does appear much more relaxed. She does not want anymore that. We have agreed to give her some hydrocodone to help her get to her primary care doctor to further an outpatient workup. We have encouraged her to try and abstain from the use of cannabis. We have encouraged her to try and get away from her dependency on opiates and again encouraged her to use either [facility] outpatient opiate dependency management or look into some other program. We also encouraged her to ask her primary care doctor about referrals for [place] neurology or other workups. She has had gastric neurology workups in the past. Encourage her to seek out any other nonaddictive medication or treatment plan, Botox etc. that would help other than using opiates and we went over the long- term problems with opiate dependency to include addiction, constipation, increased pain sensation, depression etc. Diagnostic Imaging Diagonstic Imaging: Xray Plain Films/CT/US/NM/MRI: chest (1v) Comments VIA [facility]. [place], [place] NAME: LAZARA [facility]ATHIS [facility] REC#: [id number] PT STATUS: REG ER : 1995 PHYSICIAN: MARIA G ROBERTSON MD ADMIT DATE: 08/23/18/ER Draft Date of Exam:08/23/18 CHEST 1 VIEW, AP/PA ONLY Patient History: Nausea, vomiting and abdominal pain. Cough for one month. Technique: Single frontal view of the chest Comparison: 06/12/2016 FINDINGS: The lung volumes are normal. No focal consolidation is seen. No large pleural effusion or pneumothorax is seen. The cardiomediastinal silhouette is normal in size and contour. No acute osseous abnormality is seen. IMPRESSION: No acute pulmonary abnormality seen. Dictated on workstation # [id number] Dict: 08/23/18 1107 Trans: 08/23/18 1110 [id number] Interpreted by: ISIAH JUAREZ MD Electronically signed by: Reviewed: Reviewed by Nv Diagonstic Imaging: Xray Plain Films/CT/US/NM/MRI: abdomen (1 view KUB), pelvis Comments VIA [facility]. [place], [place] NAME: LAZARA MATHIS [facility] REC#: [id number] PT STATUS: REG ER : 1995 PHYSICIAN: MARIA G ROBERTSON MD ADMIT DATE: 08/23/18/ER Draft Date of Exam:08/23/18 ABDOMEN/KUB 1VIEW INDICATION: Abdominal pain and nausea. KUB FINDINGS: Lung bases are clear. Gallbladder appears to be surgically absent. Bowel gas pattern is normal. There are no pathologic masses or calcifications. IMPRESSION: No acute abnormality is seen in the abdomen. Dictated on workstation # [id number] Dict: 08/23/18 1108 Trans: 08/23/18 1111 [id number] Interpreted by: MNYOR GATES MD Electronically signed by: Reviewed: Reviewed by Me Departure Impression Primary Impression: Cyclical vomiting syndrome Qualified Codes: G43.A0 - Cyclical vomiting, not intractable Disposition: 01 HOME, SELF-CARE Condition: Stable Departure-Patient Inst. Decision time for Depature: 12:23 Referrals: CASSY NI DO (PCP/Family) Primary Care Physician Patient Instructions: Nausea and Vomiting, Adult (DC) Add. Discharge Instructions: Follow-up with Dr. Estes. All discharge instructions reviewed with patient and/or family. Voiced understanding. Scripts Hydrocodone Bit/Acetaminophen (Hydrocodone/Acetaminophen 5/325mg Tablet) 1 Tab Tab 1 EACH PO Q4-6HR PRN for PAIN-MODERATE MDD 10 for 3 Days, #10 TAB 0 Refills Prov: MARIA G ROBERTSON 08/23/18 MARIA G ROBERTSON Aug 23, 2018 09:39
--- OUTSIDE RECORDS SUMMARY | 2018-08-23 09:42 | XMS REPORT | Continuity of Care Document ---
Author Author [facility] Address Unknown Phone Unavailable Allergies Active Description Code Type Severity Reaction Onset Reported/Identified Relationship to Patient Clinical Status Yes narcotic analgesic Drug Allergy 05/30/2010 Yes No Known Drug Allergies [id number] Drug Allergy Unknown N/A 01/12/2016 Medications There [...] Establ. 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 Patient [...] ESTABL. 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 PATIENT [...] FELICITY A 493.90 ASTHMA EXERCISE-INDUCED 05/29/2009 JOYCELYN CAP SIZER, FELICITY A 724.2 LOWER BACK PAIN 05/29/2009 [...] JEAN 372.00 ACUTE CONJUNCTIVITIS, UNSPECIFIED 03/19/2010 ELISSA CAP SIZER, LENCHO S 132.0 PEDICULUS CAPITIS [HEAD LOUSE] [...] REDMAN, JEAN 462 PHARYNGITIS ACUTE 11/05/2012 RAJYANET CAP SIZER, FELICITY A 462 PHARYNGITIS ACUTE 11/11/2012 786.2 [...] SERRATO, FELICITY A 786.2 COUGH 05/12/2013 ELISSA SERRTAO, LENCHO S 477.0 ALLERGIC RHINITIS DUE TO [...] ALLERGIC RHINITIS DUE TO POLLEN 05/12/2013 RAJOTTE CAP SIZER, FELICITY A 477.0 ALLERGIC RHINITIS DUE TO POLLEN 05/12/2013 JEAN NOYOLA MD 477.0 ALLERGIC RHINITIS DUE TO POLLEN 05/12/2013 RAJOTTE CAP SIZER, FELICITY A 477.0 ALLERGIC RHINITIS DUE TO [...] CAYDEN K 787.02 NAUSEA ALONE 07/14/2013 RAJOTTE CAP SIZER, FELICITY A 729.1 MYALGIA AND MYOSITIS UNSPECIFIED 07/14/2013 RAJOTTE CAP SIZER, FELICITY A 787.02 NAUSEA ALONE 07/14/2013 DENNYS REDMAN, JEAN 729.1 MYALGIA AND MYOSITIS UNSPECIFIED 07/14/2013 DENNYS REDMAN, JEAN 787.02 NAUSEA ALONE 07/14/2013 RAJOTTE CAP SIZER, FELICITY A 729.1 MYALGIA AND MYOSITIS UNSPECIFIED 07/14/2013 RAJOTTE CAP SIZER, FELICITY A 787.02 NAUSEA ALONE 08/08/2013 RAZA [...] APRN Ot 787.91 DIARRHEA 08/17/2013 ERIKA LEWIS CAP SIZER Ot 789.09 ABDOMINAL PAIN, OTHER SPECIFIED SITE [...] DEPRESSIVE DISORDER NOT ELSEWHERE CLASSIFIED 08/23/2013 JEAN NOYLOA MD 311 DEPRESSIVE DISORDER NOT ELSEWHERE CLASSIFIED [...] ABDOMINAL PAIN, RIGHT UPPER QUADRANT 11/17/2013 ELISSA CAP SIZER, LENCHO S 564.1 IRRITABLE BOWEL SYNDROME 11/17/2013 [...] 789.07 ABDOMINAL PAIN GENERALIZED 11/29/2013 ERIKA LEWIS CAP SIZER Ot 276.8 HYPOPOTASSEMIA 11/29/2013 ERIKA LEWIS CAP SIZER Ot 599.0 URIN TRACT INFECTION NOS 11/29/2013 ERIKA LEWIS CAP SIZER Ot 787.01 NAUSEA WITH VOMITING 12/07/2013 JEAN [...] V25.09 CONTRACEPTIVE COUNSELING - GENERAL 07/12/2014 JOYCELYN CAP SIZER, FELICITY A V69.2 HIGH-RISK SEXUAL BEHAVIOR 07/12/2014 JOYCELYN CAP SIZER, FELICITY A V72.41 TEST NEGATIVE RESULT 07/12/2014 DENNYS REDMAN, JEAN 626.0 AMENORRHEA 07/12/2014 DENNYS REDMAN, JEAN V25.09 CONTRACEPTIVE COUNSELING - GENERAL 07/12/2014 DENNYS REDMAN, JEAN V69.2 HIGH-RISK SEXUAL BEHAVIOR 07/12/2014 DENNYS REDMAN, JEAN V72.41 TEST NEGATIVE RESULT 07/12/2014 JOYCELYN CAP SIZER, FELICITY A 626.0 AMENORRHEA 07/12/2014 JOYCELYN SERRATO FELICITY A V25.09 CONTRACEPTIVE COUNSELING - GENERAL 07/12/2014 JOYCELYN SERRATO FELICITY A V69.2 HIGH-RISK SEXUAL BEHAVIOR 07/12/2014 JOYCELYN CAP SIZER, FELICITY A V72.41 TEST NEGATIVE RESULT 09/05/2014 Ot 959.19 09/05/2014 Ot E849.4 09/05/2014 Ot E888.9 09/05/2014 ANDERS GRAY CAP SIZER Ot 787.01 09/05/2014 ANDERS GRAY CAP SIZER Ot 789.00 09/05/2014 Ot 959.19 09/05/2014 Ot E849.4 09/05/2014 Ot E888.9 09/05/2014 ANDERS GRAY CAP SIZER Ot 787.01 09/05/2014 ANDERS GRAY CAP SIZER Ot 789.00 09/05/2014 CADE REDMAN, DONNA Sunshine Ot 536.2 PERSISTENT VOMITING 09/05/2014 CADE REDMAN, DONNA Sunshine Ot 787.91 DIARRHEA 09/05/2014 DONNA MOHAMUD MD Ot 789.07 ABDOMINAL PAIN, GENERALIZED 09/12/2014 Ot 959.19 09/12/2014 Ot E849.4 09/12/2014 Ot E888.9 09/12/2014 ANDERS GRAY R CAP SIZER Ot 787.01 09/12/2014 ANDERS GRAY R CAP SIZER Ot 789.00 09/20/2014 JESSICA HIRSCH APRNYL Anthony V74.1 TB SCREENING 10/02/2014 Ot 959.19 10/02/2014 Ot E849.4 10/02/2014 Ot E888.9 10/02/2014 ANDERS GRAY R CAP SIZER Ot 787.01 10/02/2014 ANDERS GRAY CAP SIZER Ot 789.00 10/04/2014 NENA REDMAN, BESS Cruz Ot 466.0 ACUTE BRONCHITIS 10/04/2014 BESS BARRETT MD Ot 786.2 COUGH 04/11/2015 ANDERS GRAY R CAP SIZER Ot 787.01 04/11/2015 ANDERS GRAY R CAP SIZER Ot 789.00 04/11/2015 ERIKA LEWIS CAP SIZER Ot 305.21 CANNABIS ABUSE-CONTIN 04/11/2015 ERIKA LEWIS CAP SIZER Ot 536.2 PERSISTENT VOMITING 04/11/2015 ERIKA LEWIS CAP SIZER Ot 599.0 URIN TRACT INFECTION NOS 04/15/2015 DENNYS REDMAN, JEAN L Ot 276.2 ACIDOSIS 04/15/2015 DENNYS REDMAN, JEAN Brady Ot 276.51 DEHYDRATION 04/15/2015 JEAN NOYOLA MD Ot 276.8 HYPOPOTASSEMIA 04/15/2015 JEAN NOYOLA MD Ot 307.54 PSYCHOGENIC VOMITING 04/15/2015 JEAN NOYOLA MD Ot 788.1 DYSURIA 04/17/2015 ORLANDO MCDUFFIE Ot 305.20 CANNABIS ABUSE-UNSPEC 04/17/2015 ORLANDO MCDUFFIE Ot 536.2 PERSISTENT VOMITING 04/18/2015 ANDERS GRAY R CAP SIZER Ot 787.01 04/18/2015 ANDERS GRAY R CAP SIZER Ot 789.00 04/19/2015 JEAN NOYOLA MD Ot [...] Ot 787.03 VOMITING ALONE 05/20/2015 ERIKA LEWIS CAP SIZER Ot 276.8 HYPOPOTASSEMIA 05/20/2015 ERIKA LEWIS CAP SIZER Ot 599.0 URIN TRACT INFECTION NOS 05/20/2015 ERIKA LEWIS CAP SIZER Ot 787.01 NAUSEA WITH VOMITING 08/14/2015 ERIKA LEWIS CAP SIZER Ot F12.10 CANNABIS ABUSE, UNCOMPLICATED 08/14/2015 ERIKA LEWIS CAP SIZER Ot G43.A0 CYCLICAL VOMITING, NOT INTRACTABLE 08/14/2015 ERIKA LEWIS CAP SIZER Ot Z91.14 PATIENT'S OTHER NONCOMPLIANCE WITH MEDIC 08/20/2015 ANDERS GRAY CAP SIZER Ot 787.01 08/20/2015 ANDERS GRAY CAP SIZER Ot 789.00 08/21/2015 JASON LOPEZ MD Ot [...] HAYWARD DO Ot Z91.19 PATIENT'S NONCOMPLIANCE W [facility] MEDICAL TR 09/29/2015 HEIDI KOENIGMARYSOL [...] R10.84 GENERALIZED ABDOMINAL PAIN 12/10/2015 ANDERS GRAY CAP SIZER Ot 787.01 12/10/2015 ANDERS GRAY CAP SIZER Ot 789.00 12/10/2015 DONNA MOHAMUD MD Ot [...] ORLANDO MCDUFFIE Ot Z91.19 PATIENT'S NONCOMPLIANCE W [facility]ICAL TR 01/13/2016 Ot E87.1 [...] L03.317 CELLULITIS OF BUTTOCK 02/22/2016 ERIKA LEWIS CAP SIZER Ot L02.31 CUTANEOUS ABSCESS OF BUTTOCK 02/25/2016 ERIKA LEWIS CAP SIZER Ot L02.31 CUTANEOUS ABSCESS OF BUTTOCK 02/25/2016 [...] OR REMOVAL OF DRAIN 06/11/2016 ANDERS GRAY CAP SIZER Ot 787.01 NAUSEA WITH VOMITING 06/11/2016 ANDERS GRAY CAP SIZER Ot 789.00 ABDOMINAL PAIN, UNSPECIFIED SITE 06/12/2016 ANDERS GRAY CAP SIZER Ot 787.01 NAUSEA WITH VOMITING 06/12/2016 ANDERS GRAY CAP SIZER Ot 789.00 ABDOMINAL PAIN, UNSPECIFIED SITE 06/12/2016 [...] ZOHREH Ot R05 COUGH 08/10/2016 ANDERS GRAY CAP SIZER Ot 787.01 NAUSEA WITH VOMITING 08/10/2016 ANDERS GRAY R CAP SIZER Ot 789.00 ABDOMINAL PAIN, UNSPECIFIED SITE 08/10/2016 ORLANDO MCDUFFIE Ot F17.210 NICOTINE DEPENDENCE, CIGARETTES, UNCOMPL 08/10/2016 ORLANDO MCDUFFIE Ot L50.9 URTICARIA, UNSPECIFIED 08/10/2016 ORLANDO MCDUFFIE Ot L73.9 FOLLICULAR DISORDER, UNSPECIFIED 08/10/2016 ORLANDO MCDUFFIE Ot R21 RASH AND OTHER NONSPECIFIC SKIN ERUPTION 08/12/2016 ORLANOD MCDUFFIE Ot F17.210 NICOTINE DEPENDENCE, CIGARETTES, UNCOMPL 08/12/2016 ORLANDO MCDUFFIE Ot L50.9 URTICARIA, UNSPECIFIED 08/12/2016 ORLANDO MCDUFFIE Ot L73.9 FOLLICULAR DISORDER, UNSPECIFIED 08/12/2016 ORLANDO MCDUFFIE Ot R21 RASH AND OTHER NONSPECIFIC SKIN ERUPTION 08/12/2016 ANDERS GRAY CAP SIZER Ot 787.01 NAUSEA WITH VOMITING 08/12/2016 ANDERS GRAY CAP SIZER Ot 789.00 ABDOMINAL PAIN, UNSPECIFIED SITE 08/12/2016 ERIKA LEWIS CAP SIZER Ot L02.215 CUTANEOUS ABSCESS OF PERINEUM 08/14/2016 ERIKA LEWIS CAP SIZER Ot L02.215 CUTANEOUS ABSCESS OF PERINEUM 08/14/2016 [...] NAUSEA WITH VOMITING, UNSPECIFIED 08/15/2016 ERIKA LEWIS CAP SIZER Ot 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, UNCOMPLICATED 08/15/2016 ERIKA LEWIS APRN Ot F12.988 CANNABIS USE, UNSP WITH OTHER CANNABIS-I 08/15/2016 ERIKA LEWIS APRN Ot F13.10 SEDATIVE, HYPNOTIC OR ANXIOLYTIC ABUSE, 08/15/2016 ERIKA LEWIS CAP SIZER Ot F17.210 NICOTINE DEPENDENCE, CIGARETTES, UNCOMPL 08/15/2016 ERIKA LEWIS CAP SIZER Ot G43.A0 CYCLICAL VOMITING, NOT INTRACTABLE 08/18/2016 ERIKA LEWIS CAP SIZER Ot 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, UNCOMPLICATED 08/18/2016 ERIKA LEWIS APRN Ot F12.988 CANNABIS USE, UNSP WITH OTHER CANNABIS-I 08/18/2016 ERIKA LEWIS APRN Ot F13.10 SEDATIVE, HYPNOTIC OR ANXIOLYTIC ABUSE, 08/18/2016 ERIKA LEWIS APRN Ot F17.210 NICOTINE DEPENDENCE, CIGARETTES, UNCOMPL 08/18/2016 ERIKA LEWIS APRN Ot G43.A0 CYCLICAL VOMITING, NOT INTRACTABLE 11/30/2017 ANDERS GRAY CAP SIZER Ot 787.01 NAUSEA WITH VOMITING 11/30/2017 ANDERS GRAY CAP SIZER Ot 789.00 ABDOMINAL PAIN, UNSPECIFIED SITE 11/30/2017 [...] MD Ot G47.9 SLEEP DISORDER, UNSPECIFIED 12/01/2017 DNONA MOHAMUD MD Ot J45.909 UNSPECIFIED ASTHMA, UNCOMPLICATED [...] AND EXPSR TO ENVIRON TOBACCO SMO 12/16/2017 ERIAK LEWIS APRN Ot Z82.49 FAMILY HX OF [...] TO ENVIRON TOBACCO SMO 12/18/2017 ERIKA LEWIS CAP SIZER Ot Z82.49 FAMILY HX OF ISCHEM HEART DIS AND OTH DI 12/18/2017 ERIKA LEWIS CAP SIZER Ot Z87.01 PERSONAL HISTORY OF PNEUMONIA (RECURRENT 12/18/2017 ERIKA LEWIS CAP SIZER Ot Z87.448 PERSONAL HISTORY OF OTHER DISEASES OF UR 12/18/2017 ERIKA LEWIS CAP SIZER Ot Z90.49 ACQUIRED ABSENCE OF OTHER SPECIFIED PART 12/18/2017 ERIKA LEWIS CAP SIZER Ot Z91.14 PATIENT'S OTHER NONCOMPLIANCE WITH MEDIC 12/19/2017 ISAAC ANDERS R CAP SIZER Ot 787.01 NAUSEA WITH VOMITING 12/19/2017 ISAAC, ANDERS R CAP SIZER Ot 789.00 ABDOMINAL PAIN, UNSPECIFIED SITE 12/19/2017 ISAAC, ANDERS R CAP SIZER Ot 787.01 NAUSEA WITH VOMITING 12/19/2017 ISAAC, ANDERS R CAP SIZER Ot 789.00 ABDOMINAL PAIN, UNSPECIFIED SITE 12/19/2017 KARINA, MARTIN DREDGE PIPE INSTALLER Ot 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, UNCOMPLICATED 12/19/2017 KARINA, MARTIN DREDGE PIPE INSTALLER Ot F12.188 CANNABIS ABUSE WITH OTHER CANNABIS-INDUC 12/19/2017 KARINA, MARTIN DREDGE PIPE INSTALLER Ot F12.90 CANNABIS USE, UNSPECIFIED, UNCOMPLICATED 12/19/2017 KARINA, MARTIN DREDGE PIPE INSTALLER Ot F32.9 MAJOR DEPRESSIVE DISORDER, SINGLE EPISOD 12/19/2017 KARINA, MARTIN DREDGE PIPE INSTALLER Ot F41.9 ANXIETY DISORDER, UNSPECIFIED 12/19/2017 KARINA, MARTIN DREDGE PIPE INSTALLER Ot J45.909 UNSPECIFIED ASTHMA, UNCOMPLICATED 12/19/2017 KARINA, MARTIN DREDGE PIPE INSTALLER Ot O21.9 VOMITING OF , UNSPECIFIED 12/19/2017 KARINA, MARTIN DREDGE PIPE INSTALLER Ot O99.321 DRUG USE COMPLICATING , FIRST T 12/19/2017 KARINA, MARTIN DREDGE PIPE INSTALLER Ot O99.341 OTH MENTAL DISORDERS COMPLICATING PREGNA 12/19/2017 KARINA, MARTIN DREDGE PIPE INSTALLER Ot O99.511 DISEASES OF THE RESP SYS COMP , 12/19/2017 KARINA, MARTIN DREDGE PIPE INSTALLER Ot Z3A.01 LESS THAN 8 WEEKS GESTATION OF 12/19/2017 KARINA, MARTIN DREDGE PIPE INSTALLER Ot Z77.22 CNTCT W AND EXPSR TO ENVIRON TOBACCO SMO 12/19/2017 KARINA, MARTIN DREDGE PIPE INSTALLER Ot Z87.01 PERSONAL HISTORY OF PNEUMONIA (RECURRENT 12/19/2017 KARINA, MARTIN DREDGE PIPE INSTALLER Ot Z87.42 PERSONAL HISTORY OF OTH DISEASES OF THE 12/19/2017 KARINA, MARTIN DREDGE PIPE INSTALLER Ot Z90.49 ACQUIRED ABSENCE OF OTHER SPECIFIED PART 12/21/2017 KARINA, MARTIN DREDGE PIPE INSTALLER Ot 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, UNCOMPLICATED 12/21/2017 KARINA, MARTIN DREDGE PIPE INSTALLER Ot F12.188 CANNABIS ABUSE WITH OTHER CANNABIS-INDUC 12/21/2017 KARINA, MARTIN DREDGE PIPE INSTALLER Ot F12.90 CANNABIS USE, UNSPECIFIED, UNCOMPLICATED 12/21/2017 KARINA, MARTIN DREDGE PIPE INSTALLER Ot F32.9 MAJOR DEPRESSIVE DISORDER, SINGLE EPISOD 12/21/2017 KARINA, MARTIN DREDGE PIPE INSTALLER Ot F41.9 ANXIETY DISORDER, UNSPECIFIED 12/21/2017 KARINA, MARTIN DREDGE PIPE INSTALLER Ot J45.909 UNSPECIFIED ASTHMA, UNCOMPLICATED 12/21/2017 KARINA, MARTIN DREDGE PIPE INSTALLER Ot O21.9 VOMITING OF , UNSPECIFIED 12/21/2017 KARINA, MARTIN DREDGE PIPE INSTALLER Ot O99.321 DRUG USE COMPLICATING , FIRST T 12/21/2017 KARINA, MARTIN DREDGE PIPE INSTALLER Ot O99.341 OTH MENTAL DISORDERS COMPLICATING PREGNA 12/21/2017 KARINA, MARTIN DREDGE PIPE INSTALLER Ot O99.511 DISEASES OF THE RESP SYS COMP , 12/21/2017 KARINA, MARTIN DREDGE PIPE INSTALLER Ot Z3A.01 LESS THAN 8 WEEKS GESTATION OF 12/21/2017 KARINA, MARTIN DREDGE PIPE INSTALLER Ot Z77.22 CNTCT W AND EXPSR TO ENVIRON TOBACCO SMO 12/21/2017 KARINA, MARTIN DREDGE PIPE INSTALLER Ot Z87.01 PERSONAL HISTORY OF PNEUMONIA (RECURRENT 12/21/2017 KARINA, MARTIN DREDGE PIPE INSTALLER Ot Z87.42 PERSONAL HISTORY OF OTH DISEASES OF THE 12/21/2017 KARINA, MARTIN DREDGE PIPE INSTALLER Ot Z90.49 ACQUIRED ABSENCE OF OTHER SPECIFIED [...] OF OTHER SPECIFIED PART 01/28/2018 ANDERS GRAY CAP SIZER Ot 787.01 NAUSEA WITH VOMITING 01/28/2018 ANDERS GRAY CAP SIZER Ot 789.00 ABDOMINAL PAIN, UNSPECIFIED SITE 01/28/2018 [...] DIS AND OTH DI 01/28/2018 ERIKA LEWIS CAP SIZER Ot Z87.01 PERSONAL HISTORY OF PNEUMONIA (RECURRENT [...] EXPSR TO ENVIRON TOBACCO SMO 02/01/2018 ERIKA LEIWS APRN Ot Z82.49 FAMILY HX OF ISCHEM [...] RESP SYS COMP , 02/08/2018 ERIKA LEWIS CAP SIZER Ot Z3A.00 WEEKS OF GESTATION OF NOT SPEC 02/08/2018 ERIKA LEWIS CAP SIZER Ot Z77.22 CNTCT W AND EXPSR TO ENVIRON TOBACCO SMO 02/08/2018 ERIKA LEWIS CAP SIZER Ot Z82.49 FAMILY HX OF ISCHEM HEART DIS AND OTH DI 02/08/2018 ERIKA LEWIS CAP SIZER Ot Z87.01 PERSONAL HISTORY OF PNEUMONIA (RECURRENT 02/08/2018 ERIKA LEWIS CAP SIZER Ot Z87.448 PERSONAL HISTORY OF OTHER DISEASES OF UR 03/10/2018 FENECH DO, CASSY S Ot Z36.89 ENCOUNTER FOR OTHER SPECIFIED 03/10/2018 FENECH DO, CASSY S Ot Z3A.18 18 WEEKS GESTATION OF 03/20/2018 ANDERS GRAY CAP SIZER Ot 787.01 NAUSEA WITH VOMITING 03/20/2018 ANDERS GRAY CAP SIZER Ot 789.00 ABDOMINAL PAIN, UNSPECIFIED SITE 03/20/2018 [...] 18 WEEKS GESTATION OF 05/09/2018 ANDERS GRAY CAP SIZER Ot 787.01 NAUSEA WITH VOMITING 05/09/2018 ANDERS GRAY CAP SIZER Ot 789.00 ABDOMINAL PAIN, UNSPECIFIED SITE 05/09/2018 [...] OR SUSP POOR FETL GR 07/23/2018 CASSY IN DO Ot O69.1XX0 LABOR AND DELIVERY COMP [...] Procedures Code [place] [address] STREP A (IN-HOUSE) 11/05/2012 06168 UA LONG DIP 07/14/2013 64792 URINE TEST (IN- HOUSE) 07/14/2013 69525 ROUTINE VENIPUNCTURE 09/28/2013 57422 H PYLORI (IN-HOUSE) 09/28/2013 09182 ESR/SED RATE 09/28/2013 26542 US GALLBLADDER ULTRASOUND 09/29/2013 65671 CBC W/MANUAL DIF (order) 09/29/2013 [id number] COMPLETE BLOOD COUNT NO DIFF (CBC Result) 09/29/2013 83650 DIFFERENTIAL WBC COUNT (CBC DIFF RESULT) 09/29/2013 27957 CRP 09/29/2013 92240 CELIAC DISEASE ANALYZER 09/30/2013 16234 H PYLORI (IN-HOUSE) 10/27/2013 45.16 ESOPHAGOGASTRODUODENOSCOPY [ EGD] W/CLOSE 10/31/2013 51.23 LAPAROSCOPIC CHOLECYSTECTOMY 11/02/2013 39848 URINE DRUG SCREEN (IN-HOUSE ) 11/17/2013 09854 TEST, URINE (IN- HOUSE) 11/17/2013 47.01 LAPAROSCOP APPENDECTOMY 12/05/2013 65.25 OT LAPAROSCOP LOCAL EXCIS/ DESTRUCT OVAR 12/05/2013 66.61 DESTROY FALLOP TUBE LES 12/05/2013 69.19 DESTRUC UTER SUPPORT NEC 12/05/2013 70.32 EXCIS CUL-DE-SAC LESION 12/05/2013 GASTROENT [facility], GI 12/14/2013 01974 TEST, URINE (IN- HOUSE) 07/12/2014 FAMILY [place] ANDERS GRAY 07/30/2014 93518 TB TEST INTRADERMAL 09/20/2014 [id number] INTRODUCE OTH THERAP SUBST IN MOUTH/PHAR 07/20/2018 [id number] DIVISION OF FEMALE PERINEUM, EXTERNAL AP 07/21/2018 [id number] EXTRACTION OF PRODUCTS OF [place], [place] 07/21/2018 Results Test Result Range Complete blood [...] culture - 08/14/16 06:00 Bacterial urine culture [id number] NRG COLONY COUNT 10,000/ML - 100,000/ML NRG [...] 18:17 Serum or plasma choriogonadotropin measurement (units/volume) 82541 m[iU]/mL <5 Complete blood count (CBC) with [...] identification in genital specimen by aerobe culture [id number] NRG Microscopic examination by wet preparation - [...] 15:30 Serum or plasma choriogonadotropin measurement (units/volume) 06108 m[iU]/mL <5 Urine drug screening test - [...] in urine Negative NRG Serum or plasma 9-odccjesbyr-8,1-ucrdtsru-4,3-diphenylpyrrolidine (eddp) detection Negative NRG Urine opiates detection Positive NRG Urine phencyclidine (PCP) detection Negative NRG Propoxyphene [mass/volume] in urine Negative NRG Urine salicylates measurement (mass/volume) Negative NRG Urine tetrahydrocannabinol detection by screening method Positive NRG Bacterial urine culture - 01/28/18 13:06 Bacterial urine culture [id number] NRG COLONY COUNT 10,000/ML - 100,000/ML NRG [...] ABO+Rh group OP NRG Transfusion band number [id number] NRG Blood group antibody screen NEGATIVE NRG [...] blood basophil count (count/volume) 0.0 10*3/uL 0.0-0.1 Complete blood count (CBC) with automated white blood cell (WBC) differential - 08/21/18 11:54 Blood leukocytes automated count (number/volume) 6.6 10*3/uL 4.3-11.0 Blood erythrocytes automated count (number/volume) 4.36 10*6/uL 4.35-5.85 Venous blood hemoglobin measurement (mass/volume) 13.2 g/dL 11.5-16.0 Blood hematocrit (volume fraction) 39 % 35-52 Automated erythrocyte mean corpuscular volume 89 [foz_us] 80-99 Automated erythrocyte mean corpuscular hemoglobin (mass per erythrocyte) 30 pg 25-34 Automated erythrocyte mean corpuscular hemoglobin concentration measurement ( mass/volume) 34 g/dL 32-36 Automated erythrocyte distribution width ratio 12.7 % 10.0-14.5 Automated blood platelet count (count/volume) 316 10*3/uL 130-400 Automated blood platelet mean volume measurement 9.7 [foz_us] 7.4-10.4 Automated blood neutrophils/100 leukocytes 73 % 42-75 Automated blood lymphocytes/100 leukocytes 22 % 12-44 Blood monocytes/100 leukocytes 4 % 0-12 Automated blood eosinophils/100 leukocytes 0 % 0-10 Automated blood basophils/100 leukocytes 0 % 0-10 Blood neutrophils automated count (number/volume) 4.8 10*3 1.8-7.8 Blood lymphocytes automated count (number/volume) 1.5 10*3 1.0-4.0 Blood monocytes automated count (number/volume) 0.3 10*3 0.0-1.0 Automated eosinophil count 0.0 10*3/uL 0.0-0.3 Automated blood basophil count (count/volume) 0.0 10*3/uL 0.0-0.1 Comprehensive metabolic panel - 11/10/18 11:54 Serum or plasma sodium measurement (moles/volume) 141 mmol/L 135-145 Serum or plasma potassium measurement (moles/volume) 3.7 mmol/L 3.6-5.0 Serum or plasma chloride measurement (moles/volume) 110 mmol/L 98-107 Carbon dioxide 17 mmol/L 21-32 Serum or plasma anion gap determination (moles/volume) 14 mmol/L 5-14 Serum or plasma urea nitrogen measurement (mass/volume) 8 mg/dL 7-18 Serum or plasma creatinine measurement (mass/volume) 0.65 mg/dL 0.60-1.30 Serum or plasma urea nitrogen/creatinine mass ratio 12 NRG Serum or plasma creatinine measurement with calculation of estimated glomerular filtration rate > NRG Serum or plasma glucose measurement (mass/volume) 97 mg/dL 70-105 Serum or plasma calcium measurement (mass/volume) 9.8 mg/dL 8.5-10.1 Serum or plasma total bilirubin measurement (mass/volume) 0.5 mg/dL 0.1-1.0 Serum or plasma alkaline phosphatase measurement (enzymatic activity/volume) 76 U/L 40-136 Serum or plasma aspartate aminotransferase measurement (enzymatic activity/ volume) 15 U/L 5-34 Serum or plasma alanine aminotransferase measurement (enzymatic activity/volume ) 10 U/L 0-55 Serum or plasma protein measurement (mass/volume) 7.3 g/dL 6.4-8.2 Serum or plasma albumin measurement (mass/volume) 4.5 g/dL 3.2-4.5 CALCIUM CORRECTED 9.4 mg/dL 8.5-10.1 Magnesium - 08/21/18 11:54 Magnesium 1.8 mg/dL 1.8-2.4 Lipase - 08/21/18 11:54 Lipase 8 U/L 8-78 Serum or plasma ethanol measurement (mass/volume) - 08/21/18 11:54 Serum or plasma ethanol measurement (mass/volume) < mg/dL <10 Serum heterophile antibody titer - 08/21/18 11:54 Serum heterophile antibody titer NEGATIVE NEGATIVE Complete urinalysis with reflex to culture - 08/21/18 12:00 Urine color determination YELLOW NRG Urine clarity determination VERY CLOUDY NRG Urine pH measurement by test strip 5 5-9 Specific gravity of urine by test [...] NORMAL Urine leukocyte esterase detection by dipstick 2+ NEGATIVE Automated urine sediment erythrocyte count by [...] URATES NRG Urine drug screening test - 08/21/18 12:00 Urine phencyclidine detection by screening method NEGATIVE [...] NEGATIVE NEGATIVE Urine propoxyphene detection NEGATIVE NEGATIVE Bacterial urine culture - 08/21/18 12:00 Bacterial urine culture SEE COMMEN NRG COLONY COUNT . NRG Encounters ACCT No. Visit Date/Time Discharge Status Pt. Type Provider Facility Loc./Unit Complaint [id number] 09/20/2014 10:53:00 09/20/2014 23:59:59 CLS Outpatient FELICITY HIRSCH APRN [id number] 07/28/2014 14:45:00 07/28/2014 23:59:59 CLS Outpatient JEAN NOYOLA MD [id number] 07/12/2014 11:53:00 07/12/2014 23:59:59 CLS Outpatient FELICITY HIRSCH APRN [id number] 01/18/2014 13:03:00 01/18/2014 23:59:59 CLS Outpatient CAYDEN RAZA DO [id number] 12/14/2013 15:32:00 12/14/2013 23:59:59 CLS Outpatient ALPHONSE ARDON MD [id number] 11/17/2013 10:52:00 11/17/2013 23:59:59 CLS Outpatient LENCHO BOWERS APRN [id number] 10/27/2013 17:14:00 10/27/2013 23:59:59 CLS Outpatient ELISSA KELLYNLENCHO Cristy [id number] 09/28/2013 16:40:00 09/28/2013 23:59:59 CLS Outpatient JEAN NOYOLA MD [id number] 09/06/2013 10:41:00 09/06/2013 23:59:59 CLS Outpatient JEAN NOYOLA MD [id number] 08/23/2013 10:52:00 08/23/2013 23:59:59 CLS Outpatient JEAN NOYOLA MD [id number] 08/08/2013 17:51:00 08/08/2013 23:59:59 CLS Outpatient RAZA CAYDEN KOENIG Marizol [id number] 07/14/2013 13:19:00 07/14/2013 23:59:59 CLS Outpatient LENCHO BOWERS APRN [id number] 11/11/2012 14:11:00 11/11/2012 23:59:59 CLS Outpatient [id number] 11/05/2012 14:42:00 11/05/2012 23:59:59 CLS Outpatient [id number] 05/20/2015 11:05:33 ACT Document Registration [id number] 08/21/2018 11:51:00 08/21/2018 17:28:00 DIS Emergency MARIA G ROBERTSON MD [facility] ER ABD PAIN [id number] 07/20/2018 12:45:00 07/23/2018 13:00:00 DIS Inpatient CASSY NI DO [facility] LDRP ABD PAIN [id number] 07/18/2018 11:08:00 07/18/2018 12:15:00 DIS Outpatient GRIFFIN MARTIN DO [facility] WSo ABD PAIN [id number] 06/27/2018 10:20:00 06/27/2018 11:40:00 DIS Outpatient CASYS NI DO [facility] WSo PAIN [id number] 06/09/2018 09:44:00 06/10/2018 14:00:00 DIS Inpatient CASSY NI DO [facility] LDRP VOMITING,ABD PAIN [id number] 06/08/2018 10:59:00 06/08/2018 19:55:00 DIS Outpatient GRIFFIN MARTIN DO [facility] ABD PAIN/VOMITING [id number] 05/09/2018 11:40:00 05/09/2018 13:26:00 DIS Outpatient [facility] [id number] 03/20/2018 15:06:00 03/20/2018 19:38:00 DIS Outpatient DONNA ABDULLAHI MD [facility] VOMITING/STOMACH PAIN [id number] 03/09/2018 13:18:00 03/09/2018 23:59:59 CLS Outpatient CASSY NI DO [facility] RAD [id number] 02/05/2018 15:56:00 02/05/2018 18:30:00 DIS Emergency ERIKA LEWIS APRN [facility] ER VOMITING;4MO [id number] 01/28/2018 12:08:00 01/28/2018 13:40:00 DIS Emergency ERIKA LEWIS APRN [facility] ER ABD PAIN [id number] 12/21/2017 14:07:00 12/21/2017 18:24:00 DIS Emergency ORLANDO MCDUFFIE [facility] ER VOMITING [id number] 12/19/2017 10:51:00 12/19/2017 16:21:00 DIS Emergency MARTIN COLLINS [facility] ER VOMITING [id number] 12/17/2017 10:06:00 12/17/2017 11:05:00 DIS Emergency ERIKA LEWIS APRN [facility] ER VOMITING [id number] 12/16/2017 12:22:00 12/16/2017 15:14:00 DIS Emergency ERIKA LEWIS APRN [facility] ER VOMITING [id number] 12/15/2017 17:45:00 12/15/2017 20:30:00 DIS Emergency ZOHREH HAYWARD DO [facility] ER ABD PAIN; 5-6 WKS [id number] 12/09/2017 20:54:00 12/09/2017 23:40:00 DIS Emergency ORLANDO MCDUFFIE [facility] ER EDOMETRIOSIS [id number] 11/30/2017 12:31:00 11/30/2017 14:57:00 DIS Emergency DONNA MOHAMUD MD [facility] ER PELVIC PAIN/SWELLING [id number] 08/15/2016 19:40:00 08/15/2016 22:44:00 DIS Emergency ERIKA LEWIS APRN [facility] ER STOMACH PAIN VOMITING [id number] 08/14/2016 04:53:00 08/14/2016 07:02:00 DIS Emergency DONNA MOHAMUD MD [facility] ER ABD PAIN [id number] 08/12/2016 13:32:00 08/12/2016 13:53:00 DIS Emergency ERIKA LEWIS APRN [facility] ER ABSCESS IN PELVIC AREA [id number] 08/10/2016 15:28:00 08/10/2016 17:04:00 DIS Emergency OR[place]O MCDUFFIE [facility] ER POSS MRSA IN PELVIC AREA [id number] 06/11/2016 23:33:00 06/12/2016 00:46:00 DIS Emergency ZOHREH HAYWARD DO [facility] ER POSS BRONCHITIS [id number] 03/01/2016 13:10:00 03/01/2016 13:28:00 DIS Emergency ORLANDO MCDUFFIE [facility] ER TUBE REMOVAL [id number] 02/25/2016 17:02:00 02/25/2016 18:03:00 DIS Emergency ORLANDO MCDUFFIE [facility] ER WOUND CHECK [id number] 02/22/2016 12:02:00 02/22/2016 15:23:00 DIS Emergency LEWISERIKA APRN [facility] ER ABCESS ON BUTTOCKS [id number] 02/18/2016 17:25:00 02/18/2016 18:34:00 DIS Emergency MYNOR GUILLAUME MD [facility] ER SKIN RASH/WOUND [id number] 12/11/2015 17:28:00 12/11/2015 19:48:00 DIS Emergency ORLANDO MCDUFFIE [facility] ER ABD PAIN [id number] 12/10/2015 09:39:00 12/10/2015 13:21:00 DIS Emergency DONNA MOHAMUD MD [facility] ER ABD PAIN/VOMITING [id number] 10/10/2015 07:47:00 10/10/2015 11:21:00 DIS Emergency MYNOR GUILLAUME MD [facility] ER ABD PAIN [id number] 10/08/2015 14:37:00 10/08/2015 16:38:00 DIS Emergency DONNA MOHAMUD MD [facility] ER ABD PAIN [id number] 10/04/2015 12:02:00 10/04/2015 15:05:00 DIS Emergency ORLANDO MCDUFFIE [facility] ER STOMACH PAIN [id number] 09/29/2015 08:43:00 09/29/2015 13:13:00 DIS Emergency MYNOR GUILLAUME MD [facility] ER ABD PAIN [id number] 09/29/2015 01:21:00 09/29/2015 02:43:00 DIS Emergency MARYSOL GORDON DO [facility] ER ABDOMINAL CRAMPS [id number] 09/05/2015 03:51:00 09/05/2015 06:10:00 DIS Emergency ZOHREH HAYWARD DO [facility] ER ABD PAIN [id number] 09/01/2015 21:17:00 09/01/2015 22:43:00 DIS Emergency ZOHREH HAYWARD DO [facility] ER NAUSEA/VOMITING [id number] 08/20/2015 16:18:00 08/21/2015 11:06:00 DIS Inpatient JASON LOPEZ MD [facility] 4TH HYPOKALEMIA HYPONATREMIA ABD PAIN [id number] 08/14/2015 13:12:00 08/14/2015 15:36:00 DIS Emergency ERIKA LEWIS CAP SIZER [facility] ER VOMITING [id number] 05/20/2015 11:04:00 05/20/2015 13:53:00 DIS Emergency ERIKA LEWIS CAP SIZER [facility] ER VOMITING [id number] 05/15/2015 16:05:00 05/15/2015 19:40:00 DIS Emergency OR[place]O MCDUFFIE [facility] ER N/V,ABD PAIN [id number] 05/10/2015 21:37:00 05/13/2015 10:55:00 DIS Inpatient JASON LOPEZ MD [facility] 4TH CYCLIC VOMITING [id number] 04/21/2015 13:36:00 04/21/2015 17:38:00 DIS Emergency ORLANDO MCDUFFIE [facility] ER VOMTITING [id number] 04/17/2015 16:18:00 04/17/2015 18:40:00 DIS Emergency ORLANDO MCDUFFIE [facility] ER VOMITING [id number] 04/13/2015 19:30:00 04/15/2015 11:55:00 DIS Inpatient JEAN NOYOLA MD [facility] SURGICAL INTRACTABLE N/V, DEHYDRATION [id number] 04/11/2015 11:02:00 04/11/2015 13:30:00 DIS Emergency ERIKA LEWIS CAP SIZER [facility] ER VOMITING [id number] 10/04/2014 10:43:00 10/04/2014 11:12:00 DIS Emergency BESS BARRETT MD [facility] ER COUGH/CONGESTION SORE THROAT [id number] 09/05/2014 17:37:00 09/05/2014 19:56:00 DIS Emergency DONNA MOHAMUD MD [facility] ER VOMTITING [id number] 12/18/2013 16:38:00 12/21/2013 15:50:00 DIS Inpatient JEAN NOYOLA MD [facility] 4TH INTRACTABLE VOMITING [id number] 11/30/2013 15:00:00 12/07/2013 14:45:00 DIS Inpatient JEAN NOYOLA MD [facility] 4TH INTRACTABLE VOMITING AND ABD PAIN UTI [id number] 11/29/2013 12:46:00 11/29/2013 16:59:00 DIS Emergency ERIKA LEWIS CAP SIZER [facility] ER VOMITING [id number] 10/31/2013 15:12:00 11/02/2013 19:30:00 DIS Inpatient LEAH LEYVA MD [facility] 4TH CHRONIC ABD PAIN;NAUSEA/ VOMITING;BILIARY DYSKENISA [id number] 10/25/2013 08:26:00 10/25/2013 23:59:59 CLS Outpatient ANDERS GRAY APRN [facility] RAD NAUSEA/VOMITING ABDOMINAL PAIN [id number] 08/17/2013 22:59:00 08/18/2013 19:50:00 DIS Inpatient JEAN NOYOLA MD [facility] 4TH INTRACTABLE N/V, LEUKOCYTOSIS,ELECTROLYTE DISTURBA [id number] 08/17/2013 15:20:00 08/17/2013 18:30:00 DIS Emergency ERIKA LEWIS CAP SIZER [facility] ER MULTIPLE COMPLAINTS [id number] 03/23/2013 16:10:00 03/23/2013 23:59:59 CLS Outpatient [id number] 01/15/2016 12:41:00 Document Registration [id number] 09/05/2014 17:37:00 Document Registration [id number] 02/06/2011 18:18:00 Document Registration [id number] 08/14/2009 11:15:00 Document Registration [id number] 06/27/2009 10:07:00 Document Registration
[2018-08-23 09:49] LABS: ALANINE AMINOTRANSFERASE 10 U/L (0-55); ALBUMIN 4.7 GM/DL (3.2-4.5); ALKALINE PHOSPHATASE 73 U/L (40-136); AMYLASE 45 U/L (25-125); BUN/CREATININE RATIO 17; CALCIUM 9.9 MG/DL (8.5-10.1); CARBON DIOXIDE 22 MMOL/L (21-32); CHLORIDE 97 MMOL/L (98-107); CREATININE SERUM 0.72 MG/DL (0.60-1.30); GFR ESTIMATED > 60; GLUCOSE 106 MG/DL (70-105); LIPASE 11 U/L (8-78); MAGNESIUM 1.8 MG/DL (1.8-2.4); POTASSIUM 2.9 MMOL/L (3.6-5.0); SODIUM 135 MMOL/L (135-145); TOTAL PROTEIN 7.6 GM/DL (6.4-8.2)
[2018-08-23] MEDS ORDERED: POTASSIUM CL 10MEQ/50ML IVPB 50 ML IV ONE (10:15)
--- NOTE | 2018-08-23 11:10 | Diagnostic Imaging Report ---
Patient History: Nausea, vomiting and abdominal pain. Cough for one month. Technique: Single frontal view of the chest Comparison: 06/12/2016 FINDINGS: The lung volumes are normal. No focal consolidation is seen. No large pleural effusion or pneumothorax is seen. The cardiomediastinal silhouette is normal in size and contour. No acute osseous abnormality is seen. IMPRESSION: No acute pulmonary abnormality seen. Dictated by: Dictated on workstation # [id number]
--- NOTE | 2018-08-23 11:12 | Diagnostic Imaging Report ---
INDICATION: Abdominal pain and nausea. KUB FINDINGS: Lung bases are clear. Gallbladder appears to be surgically absent. Bowel gas pattern is normal. There are no pathologic masses or calcifications. IMPRESSION: No acute abnormality is seen in the abdomen. Dictated by: Dictated on workstation # [id number]
[2018-08-23 11:34] LABS: BILIRUBIN,URINE NEGATIVE (NEGATIVE); CLARITY,URINE SLIGHTLY CLOUDY; COLOR,URINE YELLOW; GLUCOSE, URINE (UA) NEGATIVE (NEGATIVE); KETONES,URINE 4+ (NEGATIVE); LEUKOCYTE ESTERASE ,URINE 2+ (NEGATIVE); NITRITE,URINE NEGATIVE (NEGATIVE); PH,URINE 8 (5-9); PROTEIN,URINE 2+ (NEGATIVE); UROBILINOGEN,URINE 1 MG/DL (NORMAL)
[2018-08-23] MEDS ORDERED: METOCLOPRAMIDE INJ 10 MG/2 ML (REGLAN) IVP ONE (11:45)
[2018-08-23] MEDS: AZITHROMYCIN 250 MG TAB (ZITHROMAX) PO ONE ×2 (11:50→12:02)
[2018-08-23] MEDS: ACETAMINOPHEN 500 MG TAB (TYLENOL) PO ONE ×2 (11:50→12:02)
[2018-08-23 11:51] LABS: AMPHETAMINE SCREEN, URINE NEGATIVE (NEGATIVE); BARBITURATE SCREEN URINE NEGATIVE (NEGATIVE); BENZODIAZEPINES SCREEN URINE NEGATIVE (NEGATIVE); CANNABINOID SCREEN, URINE POSITIVE (NEGATIVE); COCAINE SCREEN URINE NEGATIVE (NEGATIVE); METHADONE STAT NEGATIVE (NEGATIVE); METHAMPHETAMINE SCREEN URINE S NEGATIVE (NEGATIVE); OPIATE SCREEN URINE POSITIVE (NEGATIVE); OXYCODONE STAT NEGATIVE (NEGATIVE); PROPOXYPHENE STAT NEGATIVE (NEGATIVE); TRICYCLIC ANTIDEPRESSANTS SCRE NEGATIVE (NEGATIVE)
[2018-08-23 11:55] LABS: BACTERIA,URINE FEW /HPF; SQUAMOUS EPITHELIAL CELL,UR 25-50 /HPF
[2018-08-23] MEDS ORDERED: ACHD5005 PO (12:27)
[2018-08-23 12:29] VITALS: BP 129/92
== END 2018-08-23 12:31 | disposition home or self-care (01) ==
LOC: EDUNIT# 09:07 → ER 09:10
DX: G43.A0 Cyclical vomiting, in migraine, not intractable (principal); R05 Cough; J45.909 Unspecified asthma, uncomplicated; F41.9 Anxiety disorder, unspecified; F32.9 Major depressive disorder, single episode, unspecified; Z82.49 Family history of ischemic heart disease and other diseases of the circulatory system; Z87.448 Personal history of other diseases of urinary system; Z77.22 Contact with and (suspected) exposure to environmental tobacco smoke (acute) (chronic); Z90.89 Acquired absence of other organs; Z87.01 Personal history of pneumonia (recurrent)
CPT/HCPCS: 36415; 71045; 74018; 80053; 80306; 81000; 82150; 83690; 83735; 84703; 85025; 86141; 87491; 87591

== ENCOUNTER 2018-11-27 00:36 | Emergency (ER) | payer MEDICAID ==
[~2018-11-27] VITALS: Ht 162.6 cm; Wt 49.4 kg
[~2018-11-27 00:36] MED LIST changes: +METR-145 PO; -METR-197 PO
[2018-11-27] MEDS ORDERED: D5 NS 1000 ML IV SOLUTION 1,000 ML IV ONE (01:40)
[2018-11-27] MEDS ORDERED: PROCHLORPERAZINE 10 MG/2ML INJ (COMPAZINE) IV ONE (01:45)
[2018-11-27] MEDS ORDERED: PROMETHAZINE INJ 25 MG/ML (PHENERGAN) AMP IVP ONE (01:45)
[2018-11-27] MEDS ORDERED: KETOROLAC 30 MG/ML VIAL IVP ONE (01:45)
[2018-11-27] MEDS ORDERED: diphenhydrAMINE 25 MG TAB (BENADRYL) PO ONE (01:45)
--- NOTE | 2018-11-27 01:48 | ED GI ---
General Chief Complaint: Abdominal/GI Problems Stated Complaint: VOMITING Nursing Triage Note: TO ED ROOM VIA W/C. STATES VOMITING FOR ONE WEEK. HX OF CYCLICAL VOMITING SYNDROME AND STATES THE LAST TIME SHE SMOKED MARIJUANA WAS ONE WEEK AGO. Sepsis Screen: Possible Sepsis Risk Source of Information: Patient, Family (mom) Exam Limitations: No Limitations History of Present Illness Date Seen by Provider: Nov 27, 2018 Time Seen by Provider: 01:38 Initial Comments The patient presents to the ER by private conveyance with mother with chief complaint that she for the past weeks been having nausea vomiting and diffuse abdominal pain and decreased appetite. No fevers chills cough runny nose congestion or diarrhea but she did have one bowel movement incontinence on the shower yesterday according to mom. In the past Compazine has worked well but mom says most of the medicines do not help her nausea. She has a history of cyclical vomiting syndrome does smoke pot and her last use of marijuana was one week ago. She is on her menses right now. She says she is looking for a doctor but does not have one at this time. No medications at home. Allergies and Home Medications Allergies Coded Allergies: No Known Drug Allergies (Unverified , 01/12/16) Home Medications Cephalexin 500 Mg Tablet, 500 MG PO BID Prescribed by: MARIA G ROBERTSON on 08/21/18 1722 Docusate Sodium 100 Mg Capsule, 100 MG PO BID PRN for CONSTIPATION-1ST LINE Prescribed by: CASSY NI on 07/22/18 0807 Ferrous Sulfate 325 Mg Tablet, 325 MG PO DAILY@0800 Prescribed by: CASSY NI on 07/22/18 0807 Hydrocodone Bit/Acetaminophen 1 Tab Tab, 1 TAB PO Q4H PRN for PAIN-MODERATE Prescribed by: CASSY NI on 07/22/18 0807 Hydrocodone Bit/Acetaminophen 1 Tab Tab, 1 EACH PO Q4-6HR PRN for PAIN-MODERATE Prescribed by: MARIA G ROBERTSON on 08/23/18 1227 Ibuprofen 600 Mg Tablet, 600 MG PO Q6H Prescribed by: CASSY NI on 07/22/18 0807 Ondansetron HCl 4 Mg Tab, 4 MG PO Q4H PRN for NAUSEA/VOMITING-1ST LINE Prescribed by: ERIKA LEWIS on 08/21/18 1534 Fxe440/FA/Omega3/Dha/Fish Oil 1 Each Tab.chew, 2 EACH PO DAILY, (Reported) Promethazine HCl 25 Mg Tablet, 25 MG PO Q6H PRN for NAUSEA/VOMITING Prescribed by: MARIA G ROBERTSON on 08/21/18 1722 Patient Home Medication List Home Medication List Reviewed: Yes Review of Systems Review of Systems Constitutional: No chills, No diaphoresis EENTM: No Blurred Vision, No Double Vision Respiratory: Denies Cough, Denies Shortness of Air Cardiovascular: Denies Chest Pain, Denies Lightheadedness Gastrointestinal: See HPI; Denies Abdomen Distended; Abdominal Pain; Denies Constipated, Denies Diarrhea, Denies Difficulty Swallowing; Nausea, Poor Appetite, Poor Fluid Intake; Denies Rectal Bleeding; Vomiting Genitourinary: Denies Burning, Denies Discharge Musculoskeletal: No back pain, No joint pain Skin: No pruritus, No rash Psychiatric/Neurological: Denies Headache, Denies Numbness Past Ewcamnq-Gjizdo-Jwqcuz Hx Patient Social History Alcohol Use: Denies Use Recreational Drug Use: Yes Drug of Choice: MARIJUANA Type Used: Cigarettes 2nd Hand Smoke Exposure: Yes Recent Foreign Travel: No Contact w/Someone Who Travel: No Recent Infectious Disease Expo: No Recent Hopitalizations: No Immunizations Up To Date Tetanus Booster (TDap): Less than 5yrs PED Vaccines UTD: Yes Date of Pneumonia Vaccine: Nov 12, 2013 Date of Influenza Vaccine: Sep 11, 2015 Seasonal Allergies Seasonal Allergies: No Past Medical History Surgeries: Yes (LAPAROSCOPY-OVARIAN CYST, ENDOMETRIOSIS; EGD) Abdominal, Appendectomy, Gallbladder Respiratory: Yes Asthma, Pneumonia Currently Using CPAP: No Currently Using BIPAP: No Cardiac: No Neurological: No Reproductive Disorders: Yes (LT OVARIAN CYST) Female 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, 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 Sexually Transmitted Disease: No HIV/AIDS: No Genitourinary: No Gastrointestinal: Yes (CHRONIC ABDOMINAL PAIN, CHRONIC N/V, CANNABIS HYPEREMESIS SYNDROME) Musculoskeletal: No Endocrine: No HEENT: No Cancer: No Psychosocial: Yes Sleep Difficulties, Anxiety, Depression Integumentary: No Blood Disorders: No Adverse Reaction/Blood Tranf: No Family Medical History Cancer GPA-DAD SIDE, Onset:Unknown Cataract GMA-DAD SIDE Dementia GPA-DAD SIDE Family history: Arthritis GPA-MOM SIDE Family history: Cardiovascular disease GMA-DAD SIDE (CAD STINTS) GMA-MOM SIDE (ENLARGED HEART DEFIBALATOR AND PACER) History of - respiratory disease GPA-DAD SIDE (EMPHYSEMA, COPD) No Family History of: AIDS Abdominal aortic aneurysm Abdominal aortic aneurysm White's disease White's disease Alcoholism Alcoholism Alzheimer's disease Aphasia Aphasia Arthritis Asthma Cancer of colon Cancer of mouth Cardiovascular disease Cataracts Chest pain Colon cancer Completed stroke Congenital disease Congenital heart disease Congenital heart disease Congestive heart failure Coronary thrombosis Cystic fibrosis Cystic fibrosis Deafness or hearing loss Diabetes mellitus Drug abuse Dysphagia Dysphasia Family history: Allergy Family history: Alzheimer's disease Family history: Asthma Family history: Breast disease Family history: Coronary thrombosis Family history: Diabetes mellitus Family history: Gastrointestinal disease Family history: Glaucoma Family history: Hypertension Family history: Osteoporosis Family history: Thyroid disorder Fibrocystic disease of breast Gastroenteritis Glaucoma Headache Hearing loss Heart disease Hereditary disease History of - anemia History of - disorder History of drug abuse Human immunodeficiency virus (HIV) seropositivity Hypercholesterolemia Hypercholesterolemia Infertile Kidney disease Malignant neoplasm of lung Myocardial infarction Parkinson's disease Prostate cancer Psychotic disorder Seizure disorder Severe allergy Stroke Thyroid disease Tuberculosis Tuberculosis Visual disorder Visual impairment No Pertinent Family Hx Physical Exam Vital Signs Vital Signs - First Documented 11/27/18 01:25 Temp 96.7 Pulse 113 Resp 19 B/P (MAP) 104/81 (89) Capillary Refill : Less Than 3 Seconds Height/Weight/BMI Height: 5'4.00" Weight: 109lbs. 0.8oz. 49.760926da; 22.1 BMI Method:Stated General Appearance: WD/WN, no apparent distress HEENT: PERRL/EOMI, normal ENT inspection, TMs normal, pharynx normal Neck: non-tender, full range of motion, supple, normal inspection Respiratory: lungs clear, normal breath sounds, no respiratory distress, no accessory muscle use Cardiovascular: normal peripheral pulses, regular rate, rhythm Peripheral Pulses: 2+ Radial Pulses (R), 2+ Radial Pulses (L) Gastrointestinal: normal bowel sounds, soft; No rebound; tenderness (diffuse all 4 quadrants. Negative for Enriquez sign or rebound tenderness over McBurney's point. No Rovsing, psoas or other mesenteric signs.), other (no mesenteric signs. Patient winces and cries before abdominal examination by palpation begins but not with auscultation.) Extremities: no pedal edema, normal capillary refill Focused Exam Lactate Level 11/27/18 01:50: Lactic Acid Level 0.67 Lactic Acid Level Laboratory Tests Test 11/27/18 01:50 Lactic Acid Level 0.67 MMOL/L (0.50-2.00) Progress/Results/Core Measures Results/Orders Lab Results Laboratory Tests Test 11/27/18 01:50 11/27/18 01:57 Range/Units White Blood Count 9.1 4.3-11.0 10^3/uL Red Blood Count 5.12 4.35-5.85 10^6/uL Hemoglobin 14.4 11.5-16.0 G/DL Hematocrit 41 35-52 % Mean Corpuscular Volume 80 80-99 FL Mean Corpuscular Hemoglobin 28 25-34 PG Mean Corpuscular Hemoglobin Concent 35 32-36 G/DL Red Cell Distribution Width 14.2 10.0-14.5 % Platelet Count 395 130-400 10^3/uL Mean Platelet Volume 9.1 7.4-10.4 FL Neutrophils (%) (Auto) 45 42-75 % Lymphocytes (%) (Auto) 43 12-44 % Monocytes (%) (Auto) 10 0-12 % Eosinophils (%) (Auto) 1 0-10 % Basophils (%) (Auto) 1 0-10 % Neutrophils # (Auto) 4.1 1.8-7.8 X 10^3 Lymphocytes # (Auto) 3.9 1.0-4.0 X 10^3 Monocytes # (Auto) 0.9 0.0-1.0 X 10^3 Eosinophils # (Auto) 0.1 0.0-0.3 10^3/uL Basophils # (Auto) 0.1 0.0-0.1 10^3/uL Sodium Level 134 L 135-145 MMOL/L Potassium Level 2.9 L 3.6-5.0 MMOL/L Chloride Level 94 L 98-107 MMOL/L Carbon Dioxide Level 24 21-32 MMOL/L Anion Gap 16 H 5-14 MMOL/L Blood Urea Nitrogen 5 L 7-18 MG/DL Creatinine 0.62 0.60-1.30 MG/DL Estimat Glomerular Filtration Rate > 60 BUN/Creatinine Ratio 8 Glucose Level 85 70-105 MG/DL Lactic Acid Level 0.67 0.50-2.00 MMOL/L Calcium Level 9.6 8.5-10.1 MG/DL Corrected Calcium 8.5-10.1 MG/DL Magnesium Level 2.0 1.8-2.4 MG/DL Total Bilirubin 0.9 0.1-1.0 MG/DL Aspartate Amino Transf (AST/SGOT) 15 5-34 U/L Alanine Aminotransferase (ALT/SGPT) 11 0-55 U/L Alkaline Phosphatase 68 40-136 U/L C-Reactive Protein High Sensitivity 0.10 0.00-0.50 MG/DL Total Protein 7.5 6.4-8.2 GM/DL Albumin 4.6 H 3.2-4.5 GM/DL Lipase 11 8-78 U/L Serum Test, Qualitative NEGATIVE NEGATIVE Serum Alcohol < 10 <10 MG/DL Monoscreen NEGATIVE NEGATIVE Urine Color YELLOW Urine Clarity CLEAR Urine pH 6.5 5-9 Urine Specific [place] 1.005 L 1.016-1.022 Urine Protein NEGATIVE NEGATIVE Urine Glucose (UA) NEGATIVE NEGATIVE Urine Ketones 3+ H NEGATIVE Urine Nitrite NEGATIVE NEGATIVE Urine Bilirubin NEGATIVE NEGATIVE Urine Urobilinogen NORMAL NORMAL MG/DL Urine Leukocyte Esterase NEGATIVE NEGATIVE Urine RBC (Auto) 5+ H NEGATIVE Urine RBC 0-2 /HPF Urine WBC RARE /HPF Urine Squamous Epithelial Cells 10-25 H /HPF Urine Crystals NONE /LPF Urine Bacteria TRACE /HPF Urine Casts NONE /LPF Urine Mucus NEGATIVE /LPF Urine Culture Indicated NO Urine Opiates Screen POSITIVE H NEGATIVE Urine Oxycodone Screen POSITIVE H NEGATIVE Urine Methadone Screen NEGATIVE NEGATIVE Urine Propoxyphene Screen NEGATIVE NEGATIVE Urine Barbiturates Screen NEGATIVE NEGATIVE Ur Tricyclic Antidepressants Screen NEGATIVE NEGATIVE Urine Phencyclidine Screen NEGATIVE NEGATIVE Urine Amphetamines Screen NEGATIVE NEGATIVE Urine Methamphetamines Screen NEGATIVE NEGATIVE Urine Benzodiazepines Screen NEGATIVE NEGATIVE Urine Cocaine Screen NEGATIVE NEGATIVE Urine Cannabinoids Screen POSITIVE H NEGATIVE Micro Results Microbiology 11/27/18 Influenza Types A,B Antigen ([facility]OR[facility]) - Final, Complete My Orders Orders - MARIA G ROBERTSON Alcohol (11/27/18 01:40) Cbc With Automated Diff (11/27/18 01:40) Comprehensive Metabolic Panel (11/27/18 01:40) Hs C Reactive Protein (11/27/18 01:40) Drug Screen Stat (Urine) (11/27/18 01:40) Hcg,Qualitative Serum (11/27/18 01:40) Lactic Acid Analyzer (11/27/18 01:40) Lipase (11/27/18 01:40) Magnesium (11/27/18 01:40) Monotest (11/27/18 01:40) Ua Culture If Indicated (11/27/18 01:40) Influenza A And B Antigens (11/27/18 01:40) Saline Lock/Iv-Start (11/27/18 01:40) D5 Ns 1000 Ml Iv Solution (Dextrose 5%/0 (11/27/18 01:40) Ketorolac Injection (Toradol Injection) (11/27/18 01:45) Prochlorperazine Injection (Compazine In (11/27/18 01:45) Diphenhydramine Tablet (Benadryl Tablet) (11/27/18 01:45) Promethazine Injection (Phenergan Injec (11/27/18 01:45) Potassium Cl 10meq/50ml Ivpb (Kcl 10 Meq (11/27/18 02:30) Medications Given in ED Current Medications Medications Dose Ordered Sig/Dani Route Start Time Stop Time Status Last Admin Dose Admin Dextrose/Sodium Chloride 1,000 ml @ 0 mls/hr Q0M ONCE IV 11/27/18 01:40 11/27/18 01:47 DC 11/27/18 02:06 999 MLS/HR Diphenhydramine HCl 25 mg ONCE ONCE PO 11/27/18 01:45 11/27/18 01:47 DC 11/27/18 02:06 25 MG Ketorolac Tromethamine 30 mg ONCE ONCE IVP 11/27/18 01:45 11/27/18 01:47 DC 11/27/18 02:06 30 MG Potassium Chloride 50 ml @ 50 mls/hr ONCE ONCE IV 11/27/18 02:30 11/27/18 03:29 DC 11/27/18 02:38 50 MLS/HR Prochlorperazine Edisylate 10 mg ONCE ONCE IV 11/27/18 01:45 11/27/18 01:47 DC 11/27/18 02:06 10 MG Promethazine HCl 25 mg ONCE ONCE IVP 11/27/18 01:45 11/27/18 01:47 DC 11/27/18 02:06 25 MG Vital Signs/I&O 11/27/18 01:25 Temp 96.7 Pulse 113 Resp 19 B/P (MAP) 104/81 (89) Blood Pressure Mean: 89 Progress Progress Note #1: Time: 02:10 Progress Note Patient is a known history of cyclical vomiting syndrome. Her last use of marijuana coincides with the onset of the latest batch of symptoms. She is on her period as well with an IUD in place. We'll get some blood work to include cultures and lactate. Her tachycardia improved just with rest. We'll give her some fluids 20 cc/kg and Toradol, Compazine, Tylenol, Phenergan in her bag of fluids and Zofran. Review of K tracks demonstrates the patient is in the top 5th percentile for overdose risk with opiates and benzos. She's had multiple prescription for oxycodone 7.5 and lorazepam as well as fentanyl patches up until the point that she no longer followed with an OB doctor. She says she's not had a doctor since then to prescribe her any of her medicines. It would probably not be beneficial to the patient to treat her with opiates at this time unless there is an appropriate source of her pain. Progress Note #2: Time: 04:23 Progress Note Patient's feeling much better nausea under control. She would like to go home to sleep. She is seen GI in the past and has tried multiple preventative medicines including amitriptyline so would not recommend anything today other than to follow-up with a primary care provider get records and keep working on a viable treatment plan. We'll make sure she has some Compazine and Zofran for home. Departure Impression Primary Impression: Cyclical vomiting syndrome Qualified Codes: G43.A0 - Cyclical vomiting, not intractable Disposition: 01 HOME, SELF-CARE Condition: Improved Departure-Patient Inst. Decision time for Depature: 04:24 Referrals: NO,LOCAL PHYSICIAN (PCP/Family) Primary Care Physician Patient Instructions: LOCAL PHYSICIAN LIST, Nausea and Vomiting, Adult Add. Discharge Instructions: Compazine suppository once every 6 hours as needed for nausea control. Zofran 1 tablet in the mouth every 6 hours as needed for nausea. Establish care with a local provider and obtain records from her previous providers who have work you up. Seek treatment plan which may include referrals , preventative medicines etc. All discharge instructions reviewed with patient and/or family. Voiced understanding. Scripts Ondansetron (Ondansetron Odt) 4 Mg Tab.rapdis 4 MG PO Q6H PRN for NAUSEA/VOMITING, #20 TAB 0 Refills Prov: MARIA G ROBERTSON 11/27/18 Prochlorperazine Maleate (Compazine) 25 Mg Supp.rect 25 MG RC Q6H PRN for NAUSEA/VOMITING-1ST LINE, #20 SUPP.RECT 0 Refills Prov: MARIA G ROBERTSON 11/27/18 MARIA G ROBERTSON Nov 27, 2018 01:48
[2018-11-27 02:00] LABS: BASOPHILS # (AUTO) 0.1 10^3/uL (0.0-0.1); BASOPHILS % (AUTO) 1 % (0-10); EOSINOPHILS # (AUTO) 0.1 10^3/uL (0.0-0.3); EOSINOPHILS % (AUTO) 1 % (0-10); HEMATOCRIT 41 % (35-52); HEMOGLOBIN 14.4 G/DL (11.5-16.0); LYMPHOCYTES # (AUTO) 3.9 X 10^3 (1.0-4.0); LYMPHOCYTES % (AUTO) 43 % (12-44); MEAN CORPUSCULAR HEMOGLOBIN 28 PG (25-34); MEAN CORPUSCULAR HGB CONC 35 G/DL (32-36); MEAN CORPUSCULAR VOLUME 80 FL (80-99); MEAN PLATELET VOLUME 9.1 FL (7.4-10.4); MONOCYTES # (AUTO) 0.9 X 10^3 (0.0-1.0); MONOCYTES % (AUTO) 10 % (0-12); NEUTROPHILS # (AUTO) 4.1 X 10^3 (1.8-7.8); NEUTROPHILS % (AUTO) 45 % (42-75); PLATELET COUNT 395 10^3/uL (130-400); RED CELL DISTRIBUTION WIDTH 14.2 % (10.0-14.5); WHITE BLOOD COUNT 9.1 10^3/uL (4.3-11.0)
[2018-11-27 02:02] LABS: BILIRUBIN,URINE NEGATIVE (NEGATIVE); CLARITY,URINE CLEAR; COLOR,URINE YELLOW; GLUCOSE, URINE (UA) NEGATIVE (NEGATIVE); KETONES,URINE 3+ (NEGATIVE); LEUKOCYTE ESTERASE ,URINE NEGATIVE (NEGATIVE); NITRITE,URINE NEGATIVE (NEGATIVE); PH,URINE 6.5 (5-9); PROTEIN,URINE NEGATIVE (NEGATIVE); UROBILINOGEN,URINE NORMAL (NORMAL)
[2018-11-27 02:15] LABS: AMPHETAMINE SCREEN, URINE NEGATIVE (NEGATIVE); BARBITURATE SCREEN URINE NEGATIVE (NEGATIVE); BENZODIAZEPINES SCREEN URINE NEGATIVE (NEGATIVE); CANNABINOID SCREEN, URINE POSITIVE (NEGATIVE); COCAINE SCREEN URINE NEGATIVE (NEGATIVE); METHADONE STAT NEGATIVE (NEGATIVE); METHAMPHETAMINE SCREEN URINE S NEGATIVE (NEGATIVE); OPIATE SCREEN URINE POSITIVE (NEGATIVE); OXYCODONE STAT POSITIVE (NEGATIVE); PROPOXYPHENE STAT NEGATIVE (NEGATIVE); TRICYCLIC ANTIDEPRESSANTS SCRE NEGATIVE (NEGATIVE)
[2018-11-27 02:16] LABS: BACTERIA,URINE TRACE /HPF; RBC,URINE 0-2 /HPF; WBC,URINE RARE /HPF
[2018-11-27 02:20] LABS: ALANINE AMINOTRANSFERASE 11 U/L (0-55); ALBUMIN 4.6 GM/DL (3.2-4.5); ALKALINE PHOSPHATASE 68 U/L (40-136); BILIRUBIN,TOTAL 0.9 MG/DL (0.1-1.0); BUN/CREATININE RATIO 8; CALCIUM 9.6 MG/DL (8.5-10.1); CARBON DIOXIDE 24 MMOL/L (21-32); CHLORIDE 94 MMOL/L (98-107); CREATININE SERUM 0.62 MG/DL (0.60-1.30); GFR ESTIMATED > 60; GLUCOSE 85 MG/DL (70-105); LIPASE 11 U/L (8-78); POTASSIUM 2.9 MMOL/L (3.6-5.0); SODIUM 134 MMOL/L (135-145); TOTAL PROTEIN 7.5 GM/DL (6.4-8.2)
[2018-11-27] MEDS ORDERED: POTASSIUM CL 10MEQ/50ML IVPB 50 ML IV ONE (02:30)
[2018-11-27] MEDS ORDERED: PROC25SU27 RC (04:27)
[2018-11-27] MEDS ORDERED: ONDA4TAB11 PO (04:27)
[2018-11-27 04:35] VITALS: BP 110/79
== END 2018-11-27 04:43 | disposition home or self-care (01) ==
LOC: EDUNIT# 00:36 → ER 00:40
DX: G43.A0 Cyclical vomiting, in migraine, not intractable (principal); F41.9 Anxiety disorder, unspecified; F32.9 Major depressive disorder, single episode, unspecified; J45.909 Unspecified asthma, uncomplicated; F12.10 Cannabis abuse, uncomplicated; Z97.5 Presence of (intrauterine) contraceptive device; Z82.49 Family history of ischemic heart disease and other diseases of the circulatory system; Z87.448 Personal history of other diseases of urinary system; Z77.22 Contact with and (suspected) exposure to environmental tobacco smoke (acute) (chronic); Z90.89 Acquired absence of other organs; Z98.890 Other specified postprocedural states; Z87.01 Personal history of pneumonia (recurrent)
CPT/HCPCS: 36415; 80053; 80306; 80320; 81000; 83605; 83690; 83735; 84703; 85025; 86141; 86308; 87804

== ENCOUNTER 2018-12-25 20:56 | Emergency (ER) | payer MEDICAID ==
[~2018-12-25] VITALS: Ht 154.9 cm; Wt 51.3 kg
[~2018-12-25 20:56] MED LIST changes: +ONDA4TAB11 PO; +PROC25SU27 RC
[2018-12-25 21:52] LABS: BASOPHILS % (AUTO) 1 % (0-10); EOSINOPHILS # (AUTO) 0.1 10^3/uL (0.0-0.3); EOSINOPHILS % (AUTO) 1 % (0-10); HEMATOCRIT 41 % (35-52); HEMOGLOBIN 14.1 G/DL (11.5-16.0); LYMPHOCYTES # (AUTO) 3.1 X 10^3 (1.0-4.0); LYMPHOCYTES % (AUTO) 37 % (12-44); MEAN CORPUSCULAR HEMOGLOBIN 28 PG (25-34); MEAN CORPUSCULAR HGB CONC 35 G/DL (32-36); MEAN CORPUSCULAR VOLUME 82 FL (80-99); MEAN PLATELET VOLUME 9.4 FL (7.4-10.4); MONOCYTES # (AUTO) 0.7 X 10^3 (0.0-1.0); MONOCYTES % (AUTO) 8 % (0-12); NEUTROPHILS # (AUTO) 4.4 X 10^3 (1.8-7.8); NEUTROPHILS % (AUTO) 53 % (42-75); PLATELET COUNT 372 10^3/uL (130-400); RED CELL DISTRIBUTION WIDTH 14.2 % (10.0-14.5); WHITE BLOOD COUNT 8.3 10^3/uL (4.3-11.0)
[2018-12-25] MEDS ORDERED: NS IV 1000 ML 1,000 ML IV SCH ×2 (22:00→22:30)
[2018-12-25 22:12] LABS: ALANINE AMINOTRANSFERASE 9 U/L (0-55); ALBUMIN 4.7 GM/DL (3.2-4.5); ALKALINE PHOSPHATASE 69 U/L (40-136); AMYLASE 34 U/L (25-125); BUN/CREATININE RATIO 7; CALCIUM 9.7 MG/DL (8.5-10.1); CARBON DIOXIDE 18 MMOL/L (21-32); CHLORIDE 97 MMOL/L (98-107); CREATININE SERUM 0.69 MG/DL (0.60-1.30); GFR ESTIMATED > 60; GLUCOSE 76 MG/DL (70-105); LIPASE 9 U/L (8-78); POTASSIUM 3.1 MMOL/L (3.6-5.0); SODIUM 132 MMOL/L (135-145); TOTAL PROTEIN 7.4 GM/DL (6.4-8.2)
[2018-12-25] MEDS ORDERED: POTASSIUM CL 10MEQ/50ML IVPB 50 ML IV ONE (22:30)
[2018-12-25] MEDS ORDERED: fentaNYL INJECTION 100 MCG/2 ML AMP IVP ONE (22:45)
[2018-12-25] MEDS ORDERED: LACTATED RINGERS 1,000 ML IV SCH (22:45)
[2018-12-25] MEDS ORDERED: KCL 20 MEQ TAB (K-DUR) PO ONE (23:00)
--- NOTE | 2018-12-25 23:12 | ED Abdominal Pain ---
General Chief Complaint: Abdominal/GI Problems Stated Complaint: JAW PAIN,THICK TONGUE Source of Information: Patient Exam Limitations: No Limitations History of Present Illness Date Seen by Provider: Dec 25, 2018 Time Seen by Provider: 21:43 Initial Comments 23-year-old female who presents to the emergency room with complaints of right sided jaw pain and muscle tightness. She reports that she's had severe nausea and vomiting for the past 2 days. She has history of cannabis induced cyclic vomiting. She reports that she still continues to smoke marijuana because it helps with her nausea and vomiting. Timing/Duration: 3-4 Days Severity/Quality: Cramping Location: Generalized Abdomen Radiation: No Radiation Associated Symptoms: Nausea/Vomiting Allergies and Home Medications Allergies Coded Allergies: No Known Drug Allergies (Unverified , 01/12/16) Home Medications Cephalexin 500 Mg Tablet, 500 MG PO BID Prescribed by: MARIA G ROBERTSON on 08/21/18 1722 Docusate Sodium 100 Mg Capsule, 100 MG PO BID PRN for CONSTIPATION-1ST LINE Prescribed by: CASSY NI on 07/22/18 0807 Ferrous Sulfate 325 Mg Tablet, 325 MG PO DAILY@0800 Prescribed by: CASSY NI on 07/22/18 0807 Hydrocodone Bit/Acetaminophen 1 Tab Tab, 1 TAB PO Q4H PRN for PAIN-MODERATE Prescribed by: CASSY NI on 07/22/18 0807 Hydrocodone Bit/Acetaminophen 1 Tab Tab, 1 EACH PO Q4-6HR PRN for PAIN-MODERATE Prescribed by: MARIA G ROBERTSON on 08/23/18 1227 Ibuprofen 600 Mg Tablet, 600 MG PO Q6H Prescribed by: CASSY NI on 07/22/18 0807 Ondansetron 4 Mg Tab.rapdis, 4 MG PO Q6H PRN for NAUSEA/VOMITING Prescribed by: MARIA G ROBERTSON on 11/27/18 0427 Ondansetron HCl 4 Mg Tab, 4 MG PO Q4H PRN for NAUSEA/VOMITING-1ST LINE Prescribed by: ERIKA LEWIS on 08/21/18 1534 Sfg969/FA/Omega3/Dha/Fish Oil 1 Each Tab.chew, 2 EACH PO DAILY, (Reported) Prochlorperazine Maleate 25 Mg Supp.rect, 25 MG RC Q6H PRN for NAUSEA/VOMITING- 1ST LINE Prescribed by: MARIA G ROBERTSON on 11/27/18 0427 Prochlorperazine Maleate 25 Mg Supp.rect, 25 MG RC Q6H PRN for NAUSEA/VOMITING- 1ST LINE Prescribed by: MICHA FORTUNE on 12/25/182314 Promethazine HCl 25 Mg Tablet, 25 MG PO Q6H PRN for NAUSEA/VOMITING Prescribed by: MARIA G ROBERTSON on 08/21/18 1722 Promethazine HCl 25 Mg Supp.rect, 25 MG RC Q6H PRN for NAUSEA/VOMITING Prescribed by: MICHA FORTUNE on 12/25/182314 Patient Home Medication List Home Medication List Reviewed: Yes Review of Systems Review of Systems Constitutional: see HPI; No chills, No fever Gastrointestinal: See HPI, Abdominal Pain, Nausea, Vomiting Skin: see HPI, other (right-sided muscle tightness and/or pain) All Other Systems Reviewed Negative Unless Noted: Yes Past Zooviqx-Jkaobc-Zsynhb Hx Past Med/Social Hx: Reviewed Nursing Past Med/Soc Hx Patient Social History Drug of Choice: MARIJUANA Type Used: Cigarettes 2nd Hand Smoke Exposure: Yes Recent Foreign Travel: No Contact w/Someone Who Travel: No Recent Hopitalizations: No Immunizations Up To Date Tetanus Booster (TDap): Less than 5yrs PED Vaccines UTD: Yes Date of Pneumonia Vaccine: Nov 12, 2013 Date of Influenza Vaccine: Sep 11, 2015 Seasonal Allergies Seasonal Allergies: No Past Medical History Surgeries: Yes (LAPAROSCOPY-OVARIAN CYST, ENDOMETRIOSIS; EGD) Abdominal, Appendectomy, Gallbladder Respiratory: Yes Asthma, Pneumonia Currently Using CPAP: No Currently Using BIPAP: No Cardiac: No Neurological: No Reproductive Disorders: Yes (LT OVARIAN CYST) Female 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, 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 Sexually Transmitted Disease: No HIV/AIDS: No Genitourinary: No Gastrointestinal: Yes (CHRONIC ABDOMINAL PAIN, CHRONIC N/V, CANNABIS HYPEREMESIS SYNDROME) Musculoskeletal: No Endocrine: No HEENT: No Cancer: No Psychosocial: Yes Sleep Difficulties, Anxiety, Depression Integumentary: No Blood Disorders: No Adverse Reaction/Blood Tranf: No Family Medical History Reviewed Nursing Family Hx Cancer GPA-DAD SIDE, Onset:Unknown Cataract GMA-DAD SIDE Dementia GPA-DAD SIDE Family history: Arthritis GPA-MOM SIDE Family history: Cardiovascular disease GMA-DAD SIDE (CAD STINTS) GMA-MOM SIDE (ENLARGED HEART DEFIBALATOR AND PACER) History of - respiratory disease GPA-DAD SIDE (EMPHYSEMA, COPD) No Family History of: AIDS Abdominal aortic aneurysm Abdominal aortic aneurysm [place]'s disease Fidel's disease Alcoholism Alcoholism Alzheimer's disease Aphasia Aphasia Arthritis Asthma Cancer of colon Cancer of mouth Cardiovascular disease Cataracts Chest pain Colon cancer Completed stroke Congenital disease Congenital heart disease Congenital heart disease Congestive heart failure Coronary thrombosis Cystic fibrosis Cystic fibrosis Deafness or hearing loss Diabetes mellitus Drug abuse Dysphagia Dysphasia Family history: Allergy Family history: Alzheimer's disease Family history: Asthma Family history: Breast disease Family history: Coronary thrombosis Family history: Diabetes mellitus Family history: Gastrointestinal disease Family history: Glaucoma Family history: Hypertension Family history: Osteoporosis Family history: Thyroid disorder Fibrocystic disease of breast Gastroenteritis Glaucoma Headache Hearing loss Heart disease Hereditary disease History of - anemia History of - disorder History of drug abuse Human immunodeficiency virus (HIV) seropositivity Hypercholesterolemia Hypercholesterolemia Infertile Kidney disease Malignant neoplasm of lung Myocardial infarction Parkinson's disease Prostate cancer Psychotic disorder Seizure disorder Severe allergy Stroke Thyroid disease Tuberculosis Tuberculosis Visual disorder Visual impairment No Pertinent Family Hx Physical Exam Vital Signs Vital Signs - First Documented 12/25/18 21:32 Temp 97.4 Pulse 103 Resp 18 B/P (MAP) 120/95 (103) Pulse Ox 94 O2 Delivery Room Air Capillary Refill : Height/Weight/BMI Height: 5'4.00" Weight: 109lbs. 0.8oz. 49.462264oy; 22.1 BMI Method:Stated General Appearance: WD/WN, no apparent distress Respiratory: chest non-tender, lungs clear, normal breath sounds, no respiratory distress, no accessory muscle use Cardiovascular: normal peripheral pulses, regular rate, rhythm, no edema, no gallop, no JVD, no murmur Gastrointestinal: normal bowel sounds, non tender, soft, no organomegaly, no pulsatile mass Extremities: normal capillary refill Neurologic/Psychiatric: alert, normal mood/affect, oriented x 3 Skin: normal color, warm/dry Progress/Results/Core Measures Results/Orders Lab Results Laboratory Tests Test 12/25/18 21:44 12/25/18 23:59 Range/Units White Blood Count 8.3 4.3-11.0 10^3/uL Red Blood Count 4.99 4.35-5.85 10^6/uL Hemoglobin 14.1 11.5-16.0 G/DL Hematocrit 41 35-52 % Mean Corpuscular Volume 82 80-99 FL Mean Corpuscular Hemoglobin 28 25-34 PG Mean Corpuscular Hemoglobin Concent 35 32-36 G/DL Red Cell Distribution Width 14.2 10.0-14.5 % Platelet Count 372 130-400 10^3/uL Mean Platelet Volume 9.4 7.4-10.4 FL Neutrophils (%) (Auto) 53 42-75 % Lymphocytes (%) (Auto) 37 12-44 % Monocytes (%) (Auto) 8 0-12 % Eosinophils (%) (Auto) 1 0-10 % Basophils (%) (Auto) 1 0-10 % Neutrophils # (Auto) 4.4 1.8-7.8 X 10^3 Lymphocytes # (Auto) 3.1 1.0-4.0 X 10^3 Monocytes # (Auto) 0.7 0.0-1.0 X 10^3 Eosinophils # (Auto) 0.1 0.0-0.3 10^3/uL Basophils # (Auto) 0.0 0.0-0.1 10^3/uL Sodium Level 132 L 135-145 MMOL/L Potassium Level 3.1 L 3.6-5.0 MMOL/L Chloride Level 97 L 98-107 MMOL/L Carbon Dioxide Level 18 L 21-32 MMOL/L Anion Gap 17 H 5-14 MMOL/L Blood Urea Nitrogen 5 L 7-18 MG/DL Creatinine 0.69 0.60-1.30 MG/DL Estimat Glomerular Filtration Rate > 60 BUN/Creatinine Ratio 7 Glucose Level 76 70-105 MG/DL Calcium Level 9.7 8.5-10.1 MG/DL Corrected Calcium 8.5-10.1 MG/DL Magnesium Level 2.1 1.8-2.4 MG/DL Total Bilirubin 1.0 0.1-1.0 MG/DL Aspartate Amino Transf (AST/SGOT) 14 5-34 U/L Alanine Aminotransferase (ALT/SGPT) 9 0-55 U/L Alkaline Phosphatase 69 40-136 U/L Total Protein 7.4 6.4-8.2 GM/DL Albumin 4.7 H 3.2-4.5 GM/DL Amylase Level 34 25-125 U/L Lipase 9 8-78 U/L Urine Color YELLOW Urine Clarity CLEAR Urine pH 6 5-9 Urine Specific [place] 1.010 L 1.016-1.022 Urine Protein NEGATIVE NEGATIVE Urine Glucose (UA) NEGATIVE NEGATIVE Urine Ketones 4+ H NEGATIVE Urine Nitrite NEGATIVE NEGATIVE Urine Bilirubin NEGATIVE NEGATIVE Urine Urobilinogen NORMAL NORMAL MG/DL Urine Leukocyte Esterase NEGATIVE NEGATIVE Urine RBC (Auto) 1+ H NEGATIVE Urine RBC RARE /HPF Urine WBC NONE /HPF Urine Squamous Epithelial Cells 2-5 /HPF Urine Crystals NONE /LPF Urine Bacteria TRACE /HPF Urine Casts NONE /LPF Urine Mucus NEGATIVE /LPF Urine Culture Indicated NO Urine Opiates Screen POSITIVE H NEGATIVE Urine Oxycodone Screen NEGATIVE NEGATIVE Urine Methadone Screen NEGATIVE NEGATIVE Urine Propoxyphene Screen NEGATIVE NEGATIVE Urine Barbiturates Screen NEGATIVE NEGATIVE Ur Tricyclic Antidepressants Screen NEGATIVE NEGATIVE Urine Phencyclidine Screen NEGATIVE NEGATIVE Urine Amphetamines Screen NEGATIVE NEGATIVE Urine Methamphetamines Screen NEGATIVE NEGATIVE Urine Benzodiazepines Screen POSITIVE H NEGATIVE Urine Cocaine Screen NEGATIVE NEGATIVE Urine Cannabinoids Screen POSITIVE H NEGATIVE My Orders Orders - MICHA FORTUNE Comprehensive Metabolic Panel (12/25/18 21:39) Lipase (12/25/18 21:39) Amylase (12/25/18 21:39) Ua Culture If Indicated (12/25/18 21:39) Saline Lock/Iv-Start (12/25/18 21:39) Cbc With Automated Diff (12/25/18 21:39) Magnesium (12/25/18 21:39) Ns Iv 1000 Ml (Sodium Chloride 0.9%) (12/25/18 22:00) Drug Screen Stat (Urine) (12/25/18 22:03) Ns Iv 1000 Ml (Sodium Chloride 0.9%) (12/25/18 22:30) Magnesium (12/25/18 22:36) Fentanyl Injection (Sublimaze Injection (12/25/18 22:45) Lactated Ringers (Lr 1000 Ml Iv Solution (12/25/18 22:45) Potassium Chloride (Tablet) (K Dur Table (12/25/18 23:00) Medications Given in ED Vital Signs/I&O 12/25/18 12/26/18 21:32 00:12 Temp 97.4 Pulse 103 96 Resp 18 16 B/P (MAP) 120/95 (103) 105/76 (86) Pulse Ox 94 97 O2 Delivery Room Air Room Air Progress Progress Note : Time: 23:06 Progress Note I have seen and evaluated the patient. After 1 L of fluids her symptoms of tetany have resolved. I will give her an additional liter of fluids. She reports abdominal cramping but denies nausea and vomiting. Her pain has improved after medication. She agrees with plan of care, plans for discharge, return precautions were given. Departure Impression Primary Impression: Nausea and vomiting Additional Impressions: Electrolyte imbalance Cyclical vomiting syndrome Disposition: HOME, SELF-CARE Condition: Stable/Unchanged Departure-Patient Inst. Decision time for Depature: 23:12 Referrals: CAYDEN RAZA,LOCAL PHYSICIAN (PCP) Primary Care Physician Patient Instructions: Dehydration, Adult (DC), LOCAL PHYSICIAN LIST, Nausea and Vomiting, Adult (DC) Add. Discharge Instructions: Take medications as directed. Continue to use your prescribed medications as directed. Return back to the emergency room for worsening symptoms or concerns as needed. Drink plenty of fluids to stay hydrated and to keep your electrolytes normal. Half strength Gatorade/water is a good electrolyte floor attendant. Follow-up with a provider of your choosing within 1 week. Call first thing Thursday morning for an appointment time. All discharge instructions reviewed with patient and/or family. Voiced understanding. Scripts Promethazine HCl (Phenergan) 25 Mg Supp.rect 25 MG RC Q6H PRN for NAUSEA/VOMITING, #10 SUPP.RECT Prov: MICHA FORTUNE 12/25/18 Prochlorperazine Maleate (Compazine) 25 Mg Supp.rect 25 MG RC Q6H PRN for NAUSEA/VOMITING-1ST LINE, #10 SUPP.RECT Prov: MICHA FORTUNE 12/25/18 MICHA FORTUNE Dec 25, 2018 23:12
[2018-12-25] MEDS ORDERED: PROC25SU27 RC (23:15)
[2018-12-25] MEDS ORDERED: PROM25SU43 RC (23:15)
[2018-12-26 00:11] LABS: BILIRUBIN,URINE NEGATIVE (NEGATIVE); CLARITY,URINE CLEAR; COLOR,URINE YELLOW; GLUCOSE, URINE (UA) NEGATIVE (NEGATIVE); KETONES,URINE 4+ (NEGATIVE); LEUKOCYTE ESTERASE ,URINE NEGATIVE (NEGATIVE); NITRITE,URINE NEGATIVE (NEGATIVE); PH,URINE 6 (5-9); PROTEIN,URINE NEGATIVE (NEGATIVE); UROBILINOGEN,URINE NORMAL (NORMAL)
[2018-12-26 00:12] VITALS: BP 105/76
[2018-12-26 00:23] LABS: AMPHETAMINE SCREEN, URINE NEGATIVE (NEGATIVE); BACTERIA,URINE TRACE /HPF; BARBITURATE SCREEN URINE NEGATIVE (NEGATIVE); BENZODIAZEPINES SCREEN URINE POSITIVE (NEGATIVE); CANNABINOID SCREEN, URINE POSITIVE (NEGATIVE); COCAINE SCREEN URINE NEGATIVE (NEGATIVE); METHADONE STAT NEGATIVE (NEGATIVE); METHAMPHETAMINE SCREEN URINE S NEGATIVE (NEGATIVE); OPIATE SCREEN URINE POSITIVE (NEGATIVE); OXYCODONE STAT NEGATIVE (NEGATIVE); PROPOXYPHENE STAT NEGATIVE (NEGATIVE); RBC,URINE RARE /HPF; TRICYCLIC ANTIDEPRESSANTS SCRE NEGATIVE (NEGATIVE)
== END 2018-12-26 00:12 | disposition home or self-care (01) ==
LOC: EDUNIT# 20:56 → ER 20:58
DX: G43.A0 Cyclical vomiting, in migraine, not intractable (principal); E87.8 Other disorders of electrolyte and fluid balance, not elsewhere classified; J45.909 Unspecified asthma, uncomplicated; F41.9 Anxiety disorder, unspecified; F32.9 Major depressive disorder, single episode, unspecified; Z97.5 Presence of (intrauterine) contraceptive device; Z82.49 Family history of ischemic heart disease and other diseases of the circulatory system; Z77.22 Contact with and (suspected) exposure to environmental tobacco smoke (acute) (chronic); Z90.49 Acquired absence of other specified parts of digestive tract; Z98.890 Other specified postprocedural states; Z87.448 Personal history of other diseases of urinary system; Z87.01 Personal history of pneumonia (recurrent)
CPT/HCPCS: 36415; 80053; 80306; 81000; 82150; 83690; 83735; 85025

== ENCOUNTER 2019-01-07 11:20 | Emergency (ER) | payer MEDICAID ==
[~2019-01-07] VITALS: Ht 154.9 cm; Wt 52.2 kg
--- NOTE | 2019-01-07 11:33 | ED Abdominal Pain ---
General Stated Complaint: ABDOMINAL PAIN Source of Information: Patient Exam Limitations: No Limitations History of Present Illness Date Seen by Provider: Jan 07, 2019 Time Seen by Provider: 11:33 Initial Comments To ER with c/o diffuse abdominal pain. She frequents the emergency room for chronic abdominal pain, cyclic vomiting. States the symptoms began this morning. She has an extensive history of substance abuse. I advised the patient that we will not be using opiates to treat her abdominal pain but will use other non opiate mediations and iv fluids. She states "what if the toradol doesnt work like it never does?!". She becomes tearful and leaves and then advises me to "go suck a danyell" and leaves AMA before the exam could be completed. Timing/Duration: 1-2 Days Severity/Quality: Moderate Allergies and Home Medications Allergies Coded Allergies: No Known Drug Allergies (Unverified , 01/12/16) Home Medications Cephalexin 500 Mg Tablet, 500 MG PO BID Prescribed by: MARIA G ROBERTSON on 08/21/18 1722 Docusate Sodium 100 Mg Capsule, 100 MG PO BID PRN for CONSTIPATION-1ST LINE Prescribed by: CASSY NI on 07/22/18 0807 Ferrous Sulfate 325 Mg Tablet, 325 MG PO DAILY@0800 Prescribed by: CASSY NI on 07/22/18 0807 Hydrocodone Bit/Acetaminophen 1 Tab Tab, 1 TAB PO Q4H PRN for PAIN-MODERATE Prescribed by: CASSY NI on 07/22/18 0807 Hydrocodone Bit/Acetaminophen 1 Tab Tab, 1 EACH PO Q4-6HR PRN for PAIN-MODERATE Prescribed by: MARIA G ROBERTSON on 08/23/18 1227 Ibuprofen 600 Mg Tablet, 600 MG PO Q6H Prescribed by: CASSY NI on 07/22/18 0807 Ondansetron 4 Mg Tab.rapdis, 4 MG PO Q6H PRN for NAUSEA/VOMITING Prescribed by: MARIA G ROBERTSON on 11/27/18 0427 Ondansetron HCl 4 Mg Tab, 4 MG PO Q4H PRN for NAUSEA/VOMITING-1ST LINE Prescribed by: ERIKA LEWIS on 08/21/18 1534 Wzl385/FA/Omega3/Dha/Fish Oil 1 Each Tab.chew, 2 EACH PO DAILY, (Reported) Prochlorperazine Maleate 25 Mg Supp.rect, 25 MG RC Q6H PRN for NAUSEA/VOMITING- 1ST LINE Prescribed by: MARIA G ROBERTSON on 11/27/18 0427 Prochlorperazine Maleate 25 Mg Supp.rect, 25 MG RC Q6H PRN for NAUSEA/VOMITING- 1ST LINE Prescribed by: MICHA FORTUNE on 12/25/18 231 Promethazine HCl 25 Mg Tablet, 25 MG PO Q6H PRN for NAUSEA/VOMITING Prescribed by: MARIA G ROBERTSON on 08/21/18 1722 Promethazine HCl 25 Mg Supp.rect, 25 MG RC Q6H PRN for NAUSEA/VOMITING Prescribed by: MICHA FORTUNE on 12/25/18 231 Patient Home Medication List Home Medication List Reviewed: Yes Review of Systems Review of Systems Constitutional: see HPI, other (unable to obtain) Past Bbgncbl-Rcirrx-Jnjleb Hx Patient Social History Drug of Choice: MARIJUANA Type Used: Cigarettes 2nd Hand Smoke Exposure: Yes Recent Foreign Travel: No Contact w/Someone Who Travel: No Recent Hopitalizations: No Immunizations Up To Date Tetanus Booster (TDap): Less than 5yrs PED Vaccines UTD: Yes Date of Pneumonia Vaccine: Nov 12, 2013 Date of Influenza Vaccine: Sep 11, 2015 Seasonal Allergies Seasonal Allergies: No Past Medical History Surgeries: Yes (LAPAROSCOPY-OVARIAN CYST, ENDOMETRIOSIS; EGD) Abdominal, Appendectomy, Gallbladder Respiratory: Yes Asthma, Pneumonia Currently Using CPAP: No Currently Using BIPAP: No Cardiac: No Neurological: No Reproductive Disorders: Yes (LT OVARIAN CYST) Female 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, 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 Sexually Transmitted Disease: No HIV/AIDS: No Genitourinary: No Gastrointestinal: Yes (CHRONIC ABDOMINAL PAIN, CHRONIC N/V, CANNABIS HYPEREMESIS SYNDROME) Musculoskeletal: No Endocrine: No HEENT: No Cancer: No Psychosocial: Yes Sleep Difficulties, Anxiety, Depression Integumentary: No Blood Disorders: No Adverse Reaction/Blood Tranf: No Family Medical History Cancer GPA-DAD SIDE, Onset:Unknown Cataract GMA-DAD SIDE Dementia GPA-DAD SIDE Family history: Arthritis GPA-MOM SIDE Family history: Cardiovascular disease GMA-DAD SIDE (CAD STINTS) GMA-MOM SIDE (ENLARGED HEART DEFIBALATOR AND PACER) History of - respiratory disease GPA-DAD SIDE (EMPHYSEMA, COPD) No Family History of: AIDS Abdominal aortic aneurysm Abdominal aortic aneurysm [place]'s disease [place]'s disease Alcoholism Alcoholism Alzheimer's disease Aphasia Aphasia Arthritis Asthma Cancer of colon Cancer of mouth Cardiovascular disease Cataracts Chest pain Colon cancer Completed stroke Congenital disease Congenital heart disease Congenital heart disease Congestive heart failure Coronary thrombosis Cystic fibrosis Cystic fibrosis Deafness or hearing loss Diabetes mellitus Drug abuse Dysphagia Dysphasia Family history: Allergy Family history: Alzheimer's disease Family history: Asthma Family history: Breast disease Family history: Coronary thrombosis Family history: Diabetes mellitus Family history: Gastrointestinal disease Family history: Glaucoma Family history: Hypertension Family history: Osteoporosis Family history: Thyroid disorder Fibrocystic disease of breast Gastroenteritis Glaucoma Headache Hearing loss Heart disease Hereditary disease History of - anemia History of - disorder History of drug abuse Human immunodeficiency virus (HIV) seropositivity Hypercholesterolemia Hypercholesterolemia Infertile Kidney disease Malignant neoplasm of lung Myocardial infarction Parkinson's disease Prostate cancer Psychotic disorder Seizure disorder Severe allergy Stroke Thyroid disease Tuberculosis Tuberculosis Visual disorder Visual impairment No Pertinent Family Hx Physical Exam Vital Signs Vital Signs - First Documented 01/07/19 11:29 Temp 98.0 Capillary Refill : Height/Weight/BMI Height: 5'1.00" Weight: 113lbs. 0.8oz. 51.659151ll; 22.1 BMI Method:Stated General Appearance: other (unable to complete due to pt leaving) Progress/Results/Core Measures Results/Orders Vital Signs/I&O 01/07/19 11:29 Temp 98.0 B/P (MAP) Departure Impression Primary Impression: Left against medical advice Disposition: 07 AGAINST MEDICAL ADVICE Condition: Against Medical Advice Departure-Patient Inst. Referrals: NO,LOCAL PHYSICIAN (PCP/Family) Primary Care Physician ERIKA LEWIS APRN Jan 07, 2019 11:33
== END 2019-01-07 11:33 | disposition left against medical advice (07) ==
LOC: EDUNIT# 11:20 → EDSEX 11:22 → ER 11:22
DX: R10.84 Generalized abdominal pain (principal); J45.909 Unspecified asthma, uncomplicated; F41.9 Anxiety disorder, unspecified; F32.9 Major depressive disorder, single episode, unspecified; R11.2 Nausea with vomiting, unspecified; Z87.01 Personal history of pneumonia (recurrent); Z77.22 Contact with and (suspected) exposure to environmental tobacco smoke (acute) (chronic); Z90.49 Acquired absence of other specified parts of digestive tract
CPT/HCPCS: 99281

== ENCOUNTER 2019-02-09 09:52 | Emergency (ER) | payer MEDICAID ==
[~2019-02-09] VITALS: Ht 154.9 cm; Wt 52.2 kg
[2019-02-09] MEDS ORDERED: ONDANSETRON 4 MG/2 ML (SDV) Z0FRAN IVP ONE (11:15)
[2019-02-09] MEDS ORDERED: KETOROLAC 30 MG/ML VIAL IVP ONE (11:15)
--- NOTE | 2019-02-09 11:15 | NUR ---
PT GIVES THIS RN A UA THAT APPEARS TO BE CLEAR WATER WITH NO TINT OR ODOR TO IT. I ASKED HER IF THIS WAS INDEED A UA OR IF IT WAS WATER AND SHE STATED THIS WAS A UA. I SHOWED DR. ROBERTSON AND MICHA FORTUNE WHO BOTH THOUGHT THIS WAS A WATER SAMPLE. I ADVISED THE PT THAT I MAY NEED ANOTHER SAMPLE AND SHE SAID SHE WOULD TRY WHEN SHE GETS SOME FLUIDS TO WHICH I STATED OK.
[2019-02-09] MEDS ORDERED: NS IV 1000 ML 1,000 ML IV SCH (11:30)
--- NOTE | 2019-02-09 11:30 | NUR ---
PT STATES SHE WANTS TO TALK TO MICHA AFTER MEDICATION HAS BEEN GIVEN. I EXPLAIN THAT THE ER IS VERY BUSY AND IF SHE COULD TELL ME I WOULD PASS IT ALONG TO MICHA. THE PT RAISED HER VOICE AND SAID "I WANT TO TALK TO DEVIKA" TO WHICH I AGAIN ADVISED THAT HE WAS BUSY WITH OTHER PT'S AT THIS TIME AND AGAIN ASKED WHAT SHE NEEDED. THE PT THEN BEGINS TO TRY TO TAKE HER IV OUT AND I ASKED IF SHE WAS LEAVING AMA AND SHE STATED YES AND ASKED FOR ME TO STOP YELLING AT HER AND I NOTED THAT I HAD NOT RAISED MY VOICE AT ALL. I WAS PUTTING ON GLOVES MICHA WALKED BY IN THE [place] AND PT YELLS "DEVIKA" SO MICHA CAME IN TO SEE PT. 1132 AFTER A SHORT VISIT WITH THE PT MICHA CAME OUT OF THE ROOM AND ASKED ME TO TAKE OUT THE IV. WHEN I WENT IN THE THE PT HAD UNHOOKED THE FLUIDS AND FLUIDS WERE RUNNING ON THE FLOOR.
--- NOTE | 2019-02-09 11:30 | ED Abdominal Pain ---
General Chief Complaint: Abdominal/GI Problems Stated Complaint: ABD PAIN Nursing Triage Note: Pt reports diffuse abd pain starting at 0400 this morning. Pt also reports vomiting Sepsis Screen: No Definite Risk Source of Information: Patient Exam Limitations: No Limitations History of Present Illness Date Seen by Provider: February 09, 2019 Time Seen by Provider: 11:16 Initial Comments 23-year-old female who presents to the emergency room with complaints of diffuse abdominal cramping and nausea and vomiting that started around 0 400 this morning. She reports she has history of cyclic vomiting. She denies taking anything for pain [id number]. Denies fevers. Timing/Duration: 4-6 Hours Severity/Quality: Cramping Location: Generalized Abdomen Associated Symptoms: Nausea/Vomiting Allergies and Home Medications Allergies Coded Allergies: No Known Drug Allergies (Unverified , 01/12/16) Home Medications Cephalexin 500 Mg Tablet, 500 MG PO BID Prescribed by: MARIA G ROBERTSON on 08/21/18 1722 Docusate Sodium 100 Mg Capsule, 100 MG PO BID PRN for CONSTIPATION-1ST LINE Prescribed by: CASSY NI on 07/22/18 0807 Ferrous Sulfate 325 Mg Tablet, 325 MG PO DAILY@0800 Prescribed by: CASSY NI on 07/22/18 0807 Hydrocodone Bit/Acetaminophen 1 Tab Tab, 1 TAB PO Q4H PRN for PAIN-MODERATE Prescribed by: CASSY NI on 07/22/18 0807 Hydrocodone Bit/Acetaminophen 1 Tab Tab, 1 EACH PO Q4-6HR PRN for PAIN-MODERATE Prescribed by: MARIA G ROBERTSON on 08/23/18 1227 Ibuprofen 600 Mg Tablet, 600 MG PO Q6H Prescribed by: CASSY NI on 07/22/18 0807 Ondansetron 4 Mg Tab.rapdis, 4 MG PO Q6H PRN for NAUSEA/VOMITING Prescribed by: MARIA G ROBERTSON on 11/27/18 0427 Ondansetron HCl 4 Mg Tab, 4 MG PO Q4H PRN for NAUSEA/VOMITING-1ST LINE Prescribed by: ERIKA LEWIS on 08/21/18 1534 Mxk647/FA/Omega3/Dha/Fish Oil 1 Each Tab.chew, 2 EACH PO DAILY, (Reported) Prochlorperazine Maleate 25 Mg Supp.rect, 25 MG RC Q6H PRN for NAUSEA/VOMITING- 1ST LINE Prescribed by: MARIA G ROBERTSON on 11/27/18 0427 Prochlorperazine Maleate 25 Mg Supp.rect, 25 MG RC Q6H PRN for NAUSEA/VOMITING- 1ST LINE Prescribed by: MICHA FORTUNE on 12/25/18 231 Promethazine HCl 25 Mg Tablet, 25 MG PO Q6H PRN for NAUSEA/VOMITING Prescribed by: MARIA G ROBERTSON on 08/21/18 1722 Promethazine HCl 25 Mg Supp.rect, 25 MG RC Q6H PRN for NAUSEA/VOMITING Prescribed by: MICHA FORTUNE on 12/25/182314 Patient Home Medication List Home Medication List Reviewed: Yes Review of Systems Review of Systems Constitutional: see HPI; No chills, No fever Gastrointestinal: See HPI, Abdominal Pain (cramping), Nausea, Vomiting All Other Systems Reviewed Negative Unless Noted: Yes Past Hsxjnua-Ggzgwc-Ressuz Hx Past Med/Social Hx: Reviewed Nursing Past Med/Soc Hx Patient Social History Drug of Choice: MARIJUANA Type Used: Cigarettes 2nd Hand Smoke Exposure: Yes Recent Foreign Travel: No Contact w/Someone Who Travel: No Recent Infectious Disease Expo: No Recent Hopitalizations: No Immunizations Up To Date Tetanus Booster (TDap): Less than 5yrs PED Vaccines UTD: Yes Date of Pneumonia Vaccine: Nov 12, 2013 Date of Influenza Vaccine: Sep 11, 2015 Seasonal Allergies Seasonal Allergies: No Past Medical History Surgeries: Yes (LAPAROSCOPY-OVARIAN CYST, ENDOMETRIOSIS; EGD) Abdominal, Appendectomy, Gallbladder Respiratory: Yes Asthma, Pneumonia Currently Using CPAP: No Currently Using BIPAP: No Cardiac: No Neurological: No Reproductive Disorders: Yes (LT OVARIAN CYST) Female 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, 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 Sexually Transmitted Disease: No HIV/AIDS: No Genitourinary: No Gastrointestinal: Yes (CHRONIC ABDOMINAL PAIN, CHRONIC N/V, CANNABIS HYPEREMESIS SYNDROME) Musculoskeletal: No Endocrine: No HEENT: No Cancer: No Psychosocial: Yes Sleep Difficulties, Anxiety, Depression Integumentary: No Blood Disorders: No Adverse Reaction/Blood Tranf: No Family Medical History Reviewed Nursing Family Hx Cancer GPA-DAD SIDE, Onset:Unknown Cataract GMA-DAD SIDE Dementia GPA-DAD SIDE Family history: Arthritis GPA-MOM SIDE Family history: Cardiovascular disease GMA-DAD SIDE (CAD STINTS) GMA-MOM SIDE (ENLARGED HEART DEFIBALATOR AND PACER) History of - respiratory disease GPA-DAD SIDE (EMPHYSEMA, COPD) No Family History of: AIDS Abdominal aortic aneurysm Abdominal aortic aneurysm Fidel's disease Alcona's disease Alcoholism Alcoholism Alzheimer's disease Aphasia Aphasia Arthritis Asthma Cancer of colon Cancer of mouth Cardiovascular disease Cataracts Chest pain Colon cancer Completed stroke Congenital disease Congenital heart disease Congenital heart disease Congestive heart failure Coronary thrombosis Cystic fibrosis Cystic fibrosis Deafness or hearing loss Diabetes mellitus Drug abuse Dysphagia Dysphasia Family history: Allergy Family history: Alzheimer's disease Family history: Asthma Family history: Breast disease Family history: Coronary thrombosis Family history: Diabetes mellitus Family history: Gastrointestinal disease Family history: Glaucoma Family history: Hypertension Family history: Osteoporosis Family history: Thyroid disorder Fibrocystic disease of breast Gastroenteritis Glaucoma Headache Hearing loss Heart disease Hereditary disease History of - anemia History of - disorder History of drug abuse Human immunodeficiency virus (HIV) seropositivity Hypercholesterolemia Hypercholesterolemia Infertile Kidney disease Malignant neoplasm of lung Myocardial infarction Parkinson's disease Prostate cancer Psychotic disorder Seizure disorder Severe allergy Stroke Thyroid disease Tuberculosis Tuberculosis Visual disorder Visual impairment No Pertinent Family Hx Physical Exam Vital Signs Vital Signs - First Documented 02/09/19 10:59 Temp 97.6 Pulse 110 Resp 18 B/P (MAP) 97/74 (82) Pulse Ox 94 O2 Delivery Room Air Capillary Refill : Less Than 3 Seconds Height/Weight/BMI Height: 5'1.00" Weight: 115lbs. 0oz. 52.726293ty; 22.1 BMI Method:Stated General Appearance: WD/WN, no apparent distress Respiratory: chest non-tender, lungs clear, normal breath sounds, no respiratory distress, no accessory muscle use Cardiovascular: normal peripheral pulses, regular rate, rhythm, no edema, no gallop, no JVD, no murmur Extremities: normal capillary refill Neurologic/Psychiatric: alert, normal mood/affect, oriented x 3 Skin: normal color, warm/dry Progress/Results/Core Measures Results/Orders My Orders Orders - MICHA FORTUNE Ed Iv/Invasive Line Start (02/09/19 11:13) Ketorolac Injection (Toradol Injection) (02/09/19 11:15) Ondansetron Injection (Zofran Injectio (02/09/19 11:15) Ns Iv 1000 Ml (Sodium Chloride 0.9%) (02/09/19 11:30) Medications Given in ED Vital Signs/I&O 02/09/19 02/09/19 02/09/19 10:59 11:27 11:36 Temp 97.6 97.6 97.6 Pulse 110 110 Resp 18 18 B/P (MAP) 97/74 (82) 97/74 (82) Pulse Ox 94 94 O2 Delivery Room Air Room Air Blood Pressure Mean: 82 Progress Progress Note : Time: 11:34 Progress Note I have seen and evaluated the patient. Nursing staff brought to my attention that there was some concern of how clear the patient's urine was and cooler than body temperature when the sample was collected. The patient was confronted and she admitted that she did run tap water into her urine sample because she has been smoking marijuana. She became angry when she was confronted and wishes to leave AGAINST MEDICAL ADVICE. Risks of leaving and the benefits of staying were given. Departure Impression Primary Impression: Left against medical advice Disposition: 07 AGAINST MEDICAL ADVICE Condition: Against Medical Advice Departure-Patient Inst. Referrals: NO,LOCAL PHYSICIAN (PCP/Family) Primary Care Physician MICHA FORTUNE February 09, 2019 11:30
[2019-02-09 11:36] VITALS: BP 97/74
== END 2019-02-09 11:36 | disposition left against medical advice (07) ==
LOC: EDUNIT# 09:52 → ER 09:53
DX: R10.84 Generalized abdominal pain (principal); R11.2 Nausea with vomiting, unspecified; J45.909 Unspecified asthma, uncomplicated; F41.9 Anxiety disorder, unspecified; F32.9 Major depressive disorder, single episode, unspecified; F12.10 Cannabis abuse, uncomplicated; Z77.22 Contact with and (suspected) exposure to environmental tobacco smoke (acute) (chronic); Z90.49 Acquired absence of other specified parts of digestive tract; Z82.49 Family history of ischemic heart disease and other diseases of the circulatory system; Z97.5 Presence of (intrauterine) contraceptive device; Z87.448 Personal history of other diseases of urinary system; Z98.890 Other specified postprocedural states; Z87.01 Personal history of pneumonia (recurrent)

== ENCOUNTER 2019-07-11 08:47 | Emergency (ER) | payer SELFPAY ==
[~2019-07-11] VITALS: Ht 154.9 cm; Wt 54.5 kg
[~2019-07-11 08:47] MED LIST changes: -OMEP20CA12 PO; +OMEP20CA13 PO; +RANI-613 PO; -RANI150T46 PO
--- NOTE | 2019-07-11 08:50 | NUR ---
[id number] [place] PATIENT SLEEPY AFTER MEDS DR NUNEZ. B/P 181/65 Addendum: 07/11/19 at 0854 by PMCCLURE SAO2 94% WITH O2 2L
[2019-07-11] MEDS ORDERED: fentaNYL INJECTION 100 MCG/2 ML AMP IVP ONE ×4 (09:15→14:15)
[2019-07-11] MEDS ORDERED: NS IV 1000 ML 1,000 ML IV STA (09:15)
[2019-07-11] MEDS ORDERED: FAMOTIDINE 20MG/2ML IV (PEPCID) IV STA (09:15)
[2019-07-11] MEDS ORDERED: ONDANSETRON 4 MG/2 ML (SDV) Z0FRAN IVP ONE (09:15)
--- NOTE | 2019-07-11 09:21 | ED Abdominal Pain ---
General Chief Complaint: Abdominal/GI Problems Stated Complaint: ABD PAIN Nursing Triage Note: Pt reports ABD pain x1 week with continuous N/V. She states she has used marijuana and taken hydrocodone 2 days ago for pain. Sepsis Screen: No Definite Risk Source of Information: Patient Exam Limitations: No Limitations (JESS DAWSON STUDENT) History of Present Illness Date Seen by Provider: Jul 11, 2019 Time Seen by Provider: 09:10 Initial Comments Patient presents today due to 1 week history of nausea and vomiting. She has been seen multiple times in this ED and has a reported history of cyclic vomiting syndrome. She states she has not kept down any food or drink. Stated she quit marijuana a month ago but tried it again 4 days ago after the emesis began. Pt is crying and wincing as we listen to her abdomen. Timing/Duration: 6-7 Days Location: Generalized Abdomen (JESS DAWSON STUDENT) Allergies and Home Medications Allergies Coded Allergies: No Known Drug Allergies (Unverified , 01/12/16) Home Medications Cephalexin 500 Mg Tablet, 500 MG PO BID Prescribed by: MARIA G ROBERTSON on 08/21/18 1722 Docusate Sodium 100 Mg Capsule, 100 MG PO BID PRN for CONSTIPATION-1ST LINE Prescribed by: CASSY NI on 07/22/18 0807 Ferrous Sulfate 325 Mg Tablet, 325 MG PO DAILY@0800 Prescribed by: CASSY NI on 07/22/18 0807 Hydrocodone Bit/Acetaminophen 1 Tab Tab, 1 TAB PO Q4H PRN for PAIN-MODERATE Prescribed by: CASSY NI on 07/22/18 0807 Hydrocodone Bit/Acetaminophen 1 Tab Tab, 1 EACH PO Q4-6HR PRN for PAIN-MODERATE Prescribed by: MARIA G ROBERTSON on 08/23/18 1227 Ibuprofen 600 Mg Tablet, 600 MG PO Q6H Prescribed by: CASSY NI on 07/22/18 0807 Ondansetron 4 Mg Tab.rapdis, 4 MG PO Q6H PRN for NAUSEA/VOMITING Prescribed by: MARIA G ROBERTSON on 11/27/18 0427 Ondansetron 4 Mg Tab.rapdis, 4 MG SL Q4H PRN for NAUSEA/VOMITING Prescribed by: DONNA EWING on 07/11/19 1418 Ondansetron HCl 4 Mg Tab, 4 MG PO Q4H PRN for NAUSEA/VOMITING-1ST LINE Prescribed by: ERIKA LEWIS on 08/21/18 1534 Ztv566/FA/Omega3/Dha/Fish Oil 1 Each Tab.chew, 2 EACH PO DAILY, (Reported) Prochlorperazine Maleate 25 Mg Supp.rect, 25 MG RC Q6H PRN for NAUSEA/VOMITING- 1ST LINE Prescribed by: MARIA G ROBERTSON on 11/27/18 0427 Prochlorperazine Maleate 25 Mg Supp.rect, 25 MG RC Q6H PRN for NAUSEA/VOMITING- 1ST LINE Prescribed by: MICHA FORTUNE on 12/25/18 2315 Promethazine HCl 25 Mg Tablet, 25 MG PO Q6H PRN for NAUSEA/VOMITING Prescribed by: MARIA G ROBERTSON on 08/21/18 1722 Promethazine HCl 25 Mg Supp.rect, 25 MG RC Q6H PRN for NAUSEA/VOMITING Prescribed by: MICHA FORTUNE on 12/25/182314 Patient Home Medication List Home Medication List Reviewed: Yes (JESS DAWSON STUDENT) Review of Systems Review of Systems Constitutional: no symptoms reported EENTM: No Symptoms Reported Respiratory: No Symptoms Reported Cardiovascular: No Symptoms Reported Gastrointestinal: See HPI Genitourinary: No Symptoms Reported Musculoskeletal: no symptoms reported Skin: no symptoms reported Psychiatric/Neurological: No Symptoms Reported Endocrine: No Symptoms Reported Hematologic/Lymphatic: No Symptoms Reported (JESS DAWSON STUDENT) Past Lncynxd-Tyuuhc-Flykzq Hx Past Med/Social Hx: Reviewed and Corrections made (JESS DAWSON STUDENT) Patient Social History Alcohol Use: Denies Use Recreational Drug Use: Yes Drug of Choice: MARIJUANA Smoking Status: Current Someday Smoker Type Used: Cigarettes 2nd Hand Smoke Exposure: Yes Recent Foreign Travel: No Contact w/Someone Who Travel: No Recent Infectious Disease Expo: No Recent Hopitalizations: No (JESS DAWSON STUDENT) Immunizations Up To Date Tetanus Booster (TDap): Less than 5yrs PED Vaccines UTD: Yes Date of Pneumonia Vaccine: Nov 12, 2013 Date of Influenza Vaccine: Sep 11, 2015 (JESS DAWSON STUDENT) Seasonal Allergies Seasonal Allergies: No (JESS DAWSON) Past Medical History Surgeries: Yes (LAPAROSCOPY-OVARIAN CYST, ENDOMETRIOSIS; EGD) Abdominal, Appendectomy, Gallbladder Respiratory: Yes Asthma, Pneumonia Currently Using CPAP: No Currently Using BIPAP: No Cardiac: No Neurological: No : No Reproductive Disorders: Yes (LT OVARIAN CYST) Female 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, 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 Sexually Transmitted Disease: No HIV/AIDS: No Genitourinary: No Gastrointestinal: Yes (CHRONIC ABDOMINAL PAIN, CHRONIC N/V, CANNABIS HYPEREMESIS SYNDROME) Musculoskeletal: No Endocrine: No HEENT: No Cancer: No Psychosocial: Yes Sleep Difficulties, Anxiety, Depression Integumentary: No Blood Disorders: No Adverse Reaction/Blood Tranf: No (JESS DAWSNO STUDENT) Family Medical History Cancer GPA-DAD SIDE, Onset:Unknown Cataract GMA-DAD SIDE Dementia GPA-DAD SIDE Family history: Arthritis GPA-MOM SIDE Family history: Cardiovascular disease GMA-DAD SIDE (CAD STINTS) GMA-MOM SIDE (ENLARGED HEART DEFIBALATOR AND PACER) History of - respiratory disease GPA-DAD SIDE (EMPHYSEMA, COPD) No Family History of: AIDS Abdominal aortic aneurysm Abdominal aortic aneurysm [place]'s disease [place]'s disease Alcoholism Alcoholism Alzheimer's disease Aphasia Aphasia Arthritis Asthma Cancer of colon Cancer of mouth Cardiovascular disease Cataracts Chest pain Colon cancer Completed stroke Congenital disease Congenital heart disease Congenital heart disease Congestive heart failure Coronary thrombosis Cystic fibrosis Cystic fibrosis Deafness or hearing loss Diabetes mellitus Drug abuse Dysphagia Dysphasia Family history: Allergy Family history: Alzheimer's disease Family history: Asthma Family history: Breast disease Family history: Coronary thrombosis Family history: Diabetes mellitus Family history: Gastrointestinal disease Family history: Glaucoma Family history: Hypertension Family history: Osteoporosis Family history: Thyroid disorder Fibrocystic disease of breast Gastroenteritis Glaucoma Headache Hearing loss Heart disease Hereditary disease History of - anemia History of - disorder History of drug abuse Human immunodeficiency virus (HIV) seropositivity Hypercholesterolemia Hypercholesterolemia Infertile Kidney disease Malignant neoplasm of lung Myocardial infarction Parkinson's disease Prostate cancer Psychotic disorder Seizure disorder Severe allergy Stroke Thyroid disease Tuberculosis Tuberculosis Visual disorder Visual impairment No Pertinent Family Hx (JESS DAWSON STUDENT) Physical Exam Vital Signs Vital Signs - First Documented 07/11/19 08:58 Temp 37.1 Pulse 108 Resp 16 B/P (MAP) 133/87 (102) Pulse Ox 95 (DONNA MOHAMUD MD) Vital Signs Capillary Refill : Less Than 3 Seconds (JESS DAWSON STUDENT) Height/Weight/BMI Height: 5'1.00" Weight: 115lbs. 0oz. 52.747157lv; 22.00 BMI Method:Stated General Appearance: WD/WN, moderate distress HEENT: PERRL/EOMI, pharynx normal, other (Dry mucus membranes) Neck: full range of motion Respiratory: chest non-tender, lungs clear, normal breath sounds Cardiovascular: no murmur, tachycardia Gastrointestinal: abnormal bowel sounds (hypoactive ), guarding, other (reticulate rash from heating pad on abdomen) Extremities: normal range of motion Neurologic/Psychiatric: alert, normal mood/affect, oriented x 3 Skin: normal color, warm/dry (JESS DAWSON PA STUDENT) Progress/Results/Core Measures Results/Orders Lab Results Laboratory Tests Test 07/11/19 08:55 07/11/19 09:00 Range/Units Urine Color YELLOW Urine Clarity CLEAR Urine pH 5 5-9 Urine Specific Buckner 1.025 H 1.016-1.022 Urine Protein 1+ H NEGATIVE Urine Glucose (UA) NEGATIVE NEGATIVE Urine Ketones 4+ H NEGATIVE Urine Nitrite NEGATIVE NEGATIVE Urine Bilirubin NEGATIVE NEGATIVE Urine Urobilinogen NORMAL NORMAL MG/DL Urine Leukocyte Esterase NEGATIVE NEGATIVE Urine RBC (Auto) 5+ H NEGATIVE Urine RBC 0-2 /HPF Urine WBC NONE /HPF Urine Squamous Epithelial Cells 5-10 /HPF Urine Crystals NONE /LPF Urine Bacteria NEGATIVE /HPF Urine Casts NONE /LPF Urine Mucus NEGATIVE /LPF Urine Culture Indicated NO White Blood Count 8.9 4.3-11.0 10^3/uL Red Blood Count 5.55 4.35-5.85 10^6/uL Hemoglobin 15.6 11.5-16.0 G/DL Hematocrit 43 35-52 % Mean Corpuscular Volume 78 L 80-99 FL Mean Corpuscular Hemoglobin 28 25-34 PG Mean Corpuscular Hemoglobin Concent 36 32-36 G/DL Red Cell Distribution Width 13.6 10.0-14.5 % Platelet Count 371 130-400 10^3/uL Mean Platelet Volume 9.9 7.4-10.4 FL Neutrophils (%) (Auto) 74 42-75 % Lymphocytes (%) (Auto) 19 12-44 % Monocytes (%) (Auto) 7 0-12 % Eosinophils (%) (Auto) 0 0-10 % Basophils (%) (Auto) 0 0-10 % Neutrophils # (Auto) 6.6 1.8-7.8 X 10^3 Lymphocytes # (Auto) 1.7 1.0-4.0 X 10^3 Monocytes # (Auto) 0.6 0.0-1.0 X 10^3 Eosinophils # (Auto) 0.0 0.0-0.3 10^3/uL Basophils # (Auto) 0.0 0.0-0.1 10^3/uL Sodium Level 131 L 135-145 MMOL/L Potassium Level 3.5 L 3.6-5.0 MMOL/L Chloride Level 87 L 98-107 MMOL/L Carbon Dioxide Level 24 21-32 MMOL/L Anion Gap 20 H 5-14 MMOL/L Blood Urea Nitrogen 10 7-18 MG/DL Creatinine 0.64 0.60-1.30 MG/DL Estimat Glomerular Filtration Rate > 60 BUN/Creatinine Ratio 16 Glucose Level 70 70-105 MG/DL Calcium Level 9.5 8.5-10.1 MG/DL Corrected Calcium 8.5-10.1 MG/DL Magnesium Level 2.1 1.6-2.4 MG/DL Total Bilirubin 1.1 H 0.1-1.0 MG/DL Aspartate Amino Transf (AST/SGOT) 24 5-34 U/L Alanine Aminotransferase (ALT/SGPT) 15 0-55 U/L Alkaline Phosphatase 91 40-136 U/L Total Protein 9.0 H 6.4-8.2 GM/DL Albumin 5.0 H 3.2-4.5 GM/DL Lipase 5 L 8-78 U/L Serum Test, Qualitative NEGATIVE NEGATIVE (DONNA MOHAMUD MD) My Orders Orders - DONNA MOHAMUD MD Ua Culture If Indicated (07/11/19 09:02) Ondansetron Injection (Zofran Injectio (07/11/19 09:15) Ns Iv 1000 Ml (Sodium Chloride 0.9%) (07/11/19 09:15) Famotidine Injection (Pepcid Injection) (07/11/19 09:15) Ed Iv/Invasive Line Start (07/11/19 09:15) Cbc With Automated Diff (07/11/19 09:15) Comprehensive Metabolic Panel (07/11/19 09:15) Hcg,Qualitative Serum (07/11/19 09:15) Lipase (07/11/19 09:15) Magnesium (07/11/19 09:15) Fentanyl Injection (Sublimaze Injection (07/11/19 09:15) Ns Iv 1000 Ml (Sodium Chloride 0.9%) (07/11/19 10:05) Fentanyl Injection (Sublimaze Injection (07/11/19 10:45) Fentanyl Injection (Sublimaze Injection (07/11/19 11:15) Lidocaine 2% Viscous 15 Ml (Xylocaine Vi (07/11/19 11:15) Antacid Suspension (Mylanta Suspension (07/11/19 11:15) Fentanyl Injection (Sublimaze Injection (07/11/19 14:15) Ketorolac Injection (Toradol Injection) (07/11/19 14:15) (DONNA MOHAMUD MD) Medications Given in ED Current Medications Medications Dose Ordered Sig/Dani Route Start Time Stop Time Status Last Admin Dose Admin Al Hydrox/Mg Hydrox/Simethicone 30 ml ONCE ONCE PO 07/11/19 11:15 07/11/19 11:16 DC 07/11/19 11:25 30 ML Fentanyl Citrate 50 mcg ONCE ONCE IVP 07/11/19 09:15 07/11/19 09:20 DC 07/11/19 09:42 50 MCG Fentanyl Citrate 50 mcg ONCE ONCE IVP 07/11/19 10:45 07/11/19 10:46 DC 07/11/19 10:40 50 MCG Fentanyl Citrate 100 mcg ONCE ONCE IVP 07/11/19 11:15 07/11/19 11:16 DC 07/11/19 11:26 100 MCG Fentanyl Citrate 100 mcg ONCE ONCE IVP 07/11/19 14:15 07/11/19 14:16 DC 07/11/19 14:11 100 MCG Ketorolac Tromethamine 15 mg ONCE ONCE IVP 07/11/19 14:15 07/11/19 14:16 DC 07/11/19 14:11 15 MG Lidocaine HCl 15 ml ONCE ONCE PO 07/11/19 11:15 07/11/19 11:16 DC 07/11/19 11:25 15 ML Ondansetron HCl 8 mg ONCE ONCE IVP 07/11/19 09:15 07/11/19 09:20 DC 07/11/19 09:41 8 MG Sodium Chloride 1,000 ml @ 0 mls/hr Q0M ONCE IV 07/11/19 10:05 07/11/19 10:06 DC 07/11/19 10:40 1,000 MLS/HR (DONNA MOHAMUD MD) Vital Signs/I&O 07/11/19 07/11/19 08:58 14:35 Temp 37.1 37.1 Pulse 108 84 Resp 16 12 B/P (MAP) 133/87 (102) 119/93 (102) Pulse Ox 95 97 (DONNA MOHAMUD MD) Blood Pressure Mean: 102 Departure Impression Primary Impression: Generalized abdominal pain Additional Impressions: Cyclical vomiting syndrome Qualified Codes: G43.A0 - Cyclical vomiting, not intractable Addiction, marijuana Hypovolemia Disposition: HOME, SELF-CARE Condition: Improved Departure-Patient Inst. Decision time for Depature: 14:11 (DONNA MOHAMUD MD) Referrals: NO,LOCAL PHYSICIAN (PCP/Family) Primary Care Physician Patient Instructions: Acute Abdomen (Belly Pain), Adult (DC), Marijuana Use and Addiction Add. Discharge Instructions: Start with a clear liquid diet for the next 24 hours. Gradually advance your diet with small quantities of bland food as tolerated. Use Zofran (ondansetron) as prescribed for nausea and vomiting. You should also take an antacid medication such as Pepcid (famotidine) or omeprazole. Establish with a primary care provider as soon as possible. Also seek assistance for marijuana use as this is likely a contributing factor to your cyclic vomiting and abdominal pain. Dr. Estes now works for the [facility]. You may contact them in [place] at [phone] or in [place] at [phone]. They can also set you up with substance abuse treatment. Return to the ER if your symptoms are not controlled. All discharge instructions reviewed with patient and/or family. Voiced understanding. Scripts Ondansetron (Ondansetron Odt) 4 Mg Tab.rapdis 4 MG SL Q4H PRN for NAUSEA/VOMITING, #10 TAB 1 Refill Prov: DONNA MOHAMUD MD 07/11/19 I have personally interviewed and examined this patient along with Denis Dawson, MARTHA student. I agree with PA student history, exam, assessment, and documentation with the following additions and changes: This 23-year-old woman presents to the emergency room with severe diffuse abdominal pain and vomiting for about one week. She has history of cyclic vomiting syndrome likely related to marijuana use. She has had numerous visits to this emergency room and hospital related to similar presentations. She has had 9 CT scans at this facility at her young age of 23. Patient does admit to continuing to smoke marijuana. She smoked marijuana 3 or 4 days ago. Prior to that it had been about a month. She reports persistent vomiting and inability to stay orally hydrated or eat. She denies as she has a Mirena IUD. She previously saw Dr. Estes in [place] as her primary care provider. She has not seen a primary care provider since Dr. Estes moved to the [facility]. Exam: Gen.: Alert, oriented, crying and in apparent distress HEENT: Normocephalic and atraumatic, mucous membranes moist with thick mucus. Chest: Clear to auscultation bilaterally with normal effort Heart: Tachycardic, regular, no murmur Abdomen: Soft, decreased bowel sounds, diffusely tender to even light palpation Extremities: Normal to inspection with no edema Neuropsych: Alert, oriented, no focal deficits Patient was hydrated with 2 L of IV normal saline. She was given multiple doses of IV pain medications. Zofran was given for nausea. Pepcid and GI cocktail were given for additional treatment of abdominal pain. She had a strong desire to avoid admission. We discussed pros and cons of repeating CT imaging. I'm very concerned about her lifetime radiation exposure. Patient I agree that a CT scan is not in her best interest at this time. Patient ultimately elects to be discharged and try outpatient treatment. She was strongly advised to follow-up with a primary care provider and also seek assistance with marijuana abuse treatment. (DONNA MOHAMUD MD) JESS DAWSON STUDENT Jul 11, 2019 09:21 DONNA MOHAMUD MD Jul 11, 2019 14:17
[2019-07-11 09:38] LABS: BASOPHILS % (AUTO) 0 % (0-10); EOSINOPHILS % (AUTO) 0 % (0-10); HEMATOCRIT 43 % (35-52); HEMOGLOBIN 15.6 G/DL (11.5-16.0); LYMPHOCYTES # (AUTO) 1.7 X 10^3 (1.0-4.0); LYMPHOCYTES % (AUTO) 19 % (12-44); MEAN CORPUSCULAR HEMOGLOBIN 28 PG (25-34); MEAN CORPUSCULAR HGB CONC 36 G/DL (32-36); MEAN CORPUSCULAR VOLUME 78 FL (80-99); MEAN PLATELET VOLUME 9.9 FL (7.4-10.4); MONOCYTES # (AUTO) 0.6 X 10^3 (0.0-1.0); MONOCYTES % (AUTO) 7 % (0-12); NEUTROPHILS # (AUTO) 6.6 X 10^3 (1.8-7.8); NEUTROPHILS % (AUTO) 74 % (42-75); PLATELET COUNT 371 10^3/uL (130-400); RED CELL DISTRIBUTION WIDTH 13.6 % (10.0-14.5); WHITE BLOOD COUNT 8.9 10^3/uL (4.3-11.0)
[2019-07-11 09:41] LABS: BILIRUBIN,URINE NEGATIVE (NEGATIVE); CLARITY,URINE CLEAR; COLOR,URINE YELLOW; GLUCOSE, URINE (UA) NEGATIVE (NEGATIVE); KETONES,URINE 4+ (NEGATIVE); LEUKOCYTE ESTERASE ,URINE NEGATIVE (NEGATIVE); NITRITE,URINE NEGATIVE (NEGATIVE); PH,URINE 5 (5-9); PROTEIN,URINE 1+ (NEGATIVE); UROBILINOGEN,URINE NORMAL (NORMAL)
[2019-07-11 09:51] LABS: BACTERIA,URINE NEGATIVE /HPF; RBC,URINE 0-2 /HPF
[2019-07-11 10:01] LABS: ALANINE AMINOTRANSFERASE 15 U/L (0-55); ALKALINE PHOSPHATASE 91 U/L (40-136); BILIRUBIN,TOTAL 1.1 MG/DL (0.1-1.0); BUN/CREATININE RATIO 16; CALCIUM 9.5 MG/DL (8.5-10.1); CARBON DIOXIDE 24 MMOL/L (21-32); CHLORIDE 87 MMOL/L (98-107); CREATININE SERUM 0.64 MG/DL (0.60-1.30); GFR ESTIMATED > 60; GLUCOSE 70 MG/DL (70-105); LIPASE 5 U/L (8-78); MAGNESIUM 2.1 MG/DL (1.6-2.4); SODIUM 131 MMOL/L (135-145)
[2019-07-11 10:03] LABS: POTASSIUM 3.5 MMOL/L (3.6-5.0)
[2019-07-11] MEDS ORDERED: NS IV 1000 ML 1,000 ML IV ONE (10:05)
[2019-07-11] MEDS ORDERED: LIDOCAINE 2% VISCOUS 15 ML UDC PO ONE (11:15)
[2019-07-11] MEDS ORDERED: ANTACID SUSP 30 ML UDC (MYLANTA) PO ONE (11:15)
--- NOTE | 2019-07-11 12:30 | NUR ---
This RN in to reassess pt. Pt continues to c/o pain and requesting more pain medication. Provider notified.
[2019-07-11] MEDS ORDERED: KETOROLAC 30 MG/ML VIAL IVP ONE (14:15)
[2019-07-11] MEDS ORDERED: ONDA4TAB11 SL (14:18)
[2019-07-11 14:35] VITALS: BP 119/93
== END 2019-07-11 14:38 | disposition home or self-care (01) ==
LOC: EDUNIT# 08:47 → ER 08:48
DX: R10.84 Generalized abdominal pain (principal); G43.A0 Cyclical vomiting, in migraine, not intractable; F12.20 Cannabis dependence, uncomplicated; E86.1 Hypovolemia; J45.909 Unspecified asthma, uncomplicated; F41.9 Anxiety disorder, unspecified; F32.9 Major depressive disorder, single episode, unspecified; F17.210 Nicotine dependence, cigarettes, uncomplicated; Z90.49 Acquired absence of other specified parts of digestive tract; Z82.49 Family history of ischemic heart disease and other diseases of the circulatory system
CPT/HCPCS: 36415; 80053; 81000; 83690; 83735; 84703; 85025; 96374; 96375; 96376

== ENCOUNTER 2019-07-11 17:08 | Emergency (ER) | payer SELFPAY ==
[~2019-07-11] VITALS: Ht 154 cm; Wt 59.1 kg
[~2019-07-11 17:08] MED LIST changes: +ONDA4TAB11 SL
[2019-07-11 17:44] LABS: BACTERIA,URINE NEGATIVE /HPF; BILIRUBIN,URINE NEGATIVE (NEGATIVE); CLARITY,URINE CLEAR; COLOR,URINE YELLOW; GLUCOSE, URINE (UA) NEGATIVE (NEGATIVE); KETONES,URINE 4+ (NEGATIVE); LEUKOCYTE ESTERASE ,URINE NEGATIVE (NEGATIVE); NITRITE,URINE NEGATIVE (NEGATIVE); PH,URINE 6.5 (5-9); PROTEIN,URINE 2+ (NEGATIVE); RBC,URINE RARE /HPF; UROBILINOGEN,URINE NORMAL (NORMAL)
[2019-07-11 17:46] LABS: AMPHETAMINE SCREEN, URINE NEGATIVE (NEGATIVE); BENZODIAZEPINES SCREEN URINE NEGATIVE (NEGATIVE); COCAINE SCREEN URINE NEGATIVE (NEGATIVE); METHAMPHETAMINE SCREEN URINE S NEGATIVE (NEGATIVE)
[2019-07-11 17:47] LABS: BARBITURATE SCREEN URINE NEGATIVE (NEGATIVE); CANNABINOID SCREEN, URINE POSITIVE (NEGATIVE); METHADONE STAT NEGATIVE (NEGATIVE); OPIATE SCREEN URINE POSITIVE (NEGATIVE); OXYCODONE STAT NEGATIVE (NEGATIVE); PROPOXYPHENE STAT NEGATIVE (NEGATIVE); TRICYCLIC ANTIDEPRESSANTS SCRE NEGATIVE (NEGATIVE)
[2019-07-11] MEDS ORDERED: NS IV 1000 ML 1,000 ML IV SCH (18:18)
[2019-07-11] MEDS ORDERED: HALOPERIDOL 5 MG/ML (HALDOL) AMP IV ONE (18:30)
[2019-07-11] MEDS ORDERED: HYOSCYAMINE 0.125 MG (LEVSIN) TAB SL ONE (18:30)
--- NOTE | 2019-07-11 19:01 | ED Abdominal Pain ---
General Chief Complaint: Abdominal/GI Problems Stated Complaint: STOMACH PAIN Nursing Triage Note: Pt to triage with C/O diffused abd pain x 1 week. Pt here in ER earlier today with same complaint and unrelieved pain. Pt rates pain 10/10 at this time. Sepsis Screen: No Definite Risk History of Present Illness Date Seen by Provider: Jul 11, 2019 Time Seen by Provider: 17:30 Initial Comments 23-year-old female returns after being treated earlier today in this emergency department for ongoing abdominal pain. She states that she went home and vomited 2-3 times. She is to Compazine suppository and the nausea and vomiting is improving. However, the pain has returned and is worse than earlier. She does report "pain goes away with 50mcg of Fentanyl" Reviewed and discussed her narcotic usage in light of her K Tracs report. She is on Suboxone from [facility], however she declines using it since the fill on 06/30/19 for 12 tablets. She denies taking the Rx on K-tracs 07/06/19 for 7 tablets. She continues to use marijuana although she is aware of cannabinoid hyperemesis. She has never followed up for her endometriosis with Dr. Talamantes. Multiple providers have talked to her about the number of CTs over the last few years and the risk of radiation exposure. Her labs from earlier today were reviewed, no elevated WBC. She has a history of endometriosis and reports that her abdominal pain and vomiting usually precipitates her menstrual cycle. Her LMP started on 07/10/19 Timing/Duration: Constant Severity/Quality: Moderate Location: Generalized Abdomen Radiation: No Radiation Associated Symptoms: Denies Symptoms Allergies and Home Medications Allergies Coded Allergies: No Known Drug Allergies (Unverified , 01/12/16) Home Medications Cephalexin 500 Mg Tablet, 500 MG PO BID Prescribed by: MARIA G ROBERTSON on 08/21/18 1722 Docusate Sodium 100 Mg Capsule, 100 MG PO BID PRN for CONSTIPATION-1ST LINE Prescribed by: CASSY TALAMANTES on 07/22/18 0807 Ferrous Sulfate 325 Mg Tablet, 325 MG PO DAILY@0800 Prescribed by: CASSY TALAMANTES on 07/22/18 0807 Hydrocodone Bit/Acetaminophen 1 Tab Tab, 1 TAB PO Q4H PRN for PAIN-MODERATE Prescribed by: CASSY TALAMANTES on 07/22/18 0807 Hydrocodone Bit/Acetaminophen 1 Tab Tab, 1 EACH PO Q4-6HR PRN for PAIN-MODERATE Prescribed by: MARIA G ROBERTSON on 08/23/18 1227 Ibuprofen 600 Mg Tablet, 600 MG PO Q6H Prescribed by: CASSY TALAMANTES on 07/22/18 0807 Ondansetron 4 Mg Tab.rapdis, 4 MG PO Q6H PRN for NAUSEA/VOMITING Prescribed by: MARIA G ROBERTSON on 11/27/18 0427 Ondansetron 4 Mg Tab.rapdis, 4 MG SL Q4H PRN for NAUSEA/VOMITING Prescribed by: DONNA EWING on 07/11/19 1418 Ondansetron HCl 4 Mg Tab, 4 MG PO Q4H PRN for NAUSEA/VOMITING-1ST LINE Prescribed by: ERIKA LEWIS on 08/21/18 1534 Erd485/FA/Omega3/Dha/Fish Oil 1 Each Tab.chew, 2 EACH PO DAILY, (Reported) Prochlorperazine Maleate 25 Mg Supp.rect, 25 MG RC Q6H PRN for NAUSEA/VOMITING- 1ST LINE Prescribed by: MARIA G ROBERTSON on 11/27/18426 Prochlorperazine Maleate 25 Mg Supp.rect, 25 MG RC Q6H PRN for NAUSEA/VOMITING- 1ST LINE Prescribed by: MICHA FORTUNE on 12/25/18 231 Promethazine HCl 25 Mg Tablet, 25 MG PO Q6H PRN for NAUSEA/VOMITING Prescribed by: MARIA G ROBERTSON on 08/21/18 1722 Promethazine HCl 25 Mg Supp.rect, 25 MG RC Q6H PRN for NAUSEA/VOMITING Prescribed by: MICHA FORTUNE on 12/25/18 2315 Patient Home Medication List Home Medication List Reviewed: Yes Review of Systems Review of Systems Constitutional: no symptoms reported, see HPI Gastrointestinal: See HPI Past Ptodemf-Tjmfkq-Qjqedt Hx Past Med/Social Hx: Reviewed Nursing Past Med/Soc Hx Patient Social History Alcohol Use: Rarely Uses Recreational Drug Use: Yes Drug of Choice: MARIJUANA Smoking Status: Current Everyday Smoker Type Used: Cigarettes 2nd Hand Smoke Exposure: Yes Recent Foreign Travel: No Contact w/Someone Who Travel: No Recent Infectious Disease Expo: No Recent Hopitalizations: No Physical Abuse: No Sexual Abuse: No Mistreated: No Fear: No Immunizations Up To Date Tetanus Booster (TDap): Less than 5yrs PED Vaccines UTD: Yes Date of Pneumonia Vaccine: Nov 12, 2013 Date of Influenza Vaccine: Sep 11, 2015 Seasonal Allergies Seasonal Allergies: No Past Medical History Surgeries: Yes (LAPAROSCOPY-OVARIAN CYST, ENDOMETRIOSIS; EGD) Abdominal, Appendectomy, Gallbladder Respiratory: Yes Asthma, Pneumonia Currently Using CPAP: No Currently Using BIPAP: No Cardiac: No Neurological: No Reproductive Disorders: Yes (LT OVARIAN CYST) Female 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, Ovarian Cyst 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 Sexually Transmitted Disease: No HIV/AIDS: No Genitourinary: No Gastrointestinal: Yes (CHRONIC ABDOMINAL PAIN, CHRONIC N/V, CANNABIS HYPEREMESIS SYNDROME) Musculoskeletal: No Endocrine: No HEENT: No Cancer: No Psychosocial: Yes Sleep Difficulties, Anxiety, Depression Integumentary: No Blood Disorders: No Adverse Reaction/Blood Tranf: No Family Medical History Cancer GPA-DAD SIDE, Onset:Unknown Cataract GMA-DAD SIDE Dementia GPA-DAD SIDE Family history: Arthritis GPA-MOM SIDE Family history: Cardiovascular disease GMA-DAD SIDE (CAD STINTS) GMA-MOM SIDE (ENLARGED HEART DEFIBALATOR AND PACER) History of - respiratory disease GPA-DAD SIDE (EMPHYSEMA, COPD) No Family History of: AIDS Abdominal aortic aneurysm Abdominal aortic aneurysm Fidel's disease Fidel's disease Alcoholism Alcoholism Alzheimer's disease Aphasia Aphasia Arthritis Asthma Cancer of colon Cancer of mouth Cardiovascular disease Cataracts Chest pain Colon cancer Completed stroke Congenital disease Congenital heart disease Congenital heart disease Congestive heart failure Coronary thrombosis Cystic fibrosis Cystic fibrosis Deafness or hearing loss Diabetes mellitus Drug abuse Dysphagia Dysphasia Family history: Allergy Family history: Alzheimer's disease Family history: Asthma Family history: Breast disease Family history: Coronary thrombosis Family history: Diabetes mellitus Family history: Gastrointestinal disease Family history: Glaucoma Family history: Hypertension Family history: Osteoporosis Family history: Thyroid disorder Fibrocystic disease of breast Gastroenteritis Glaucoma Headache Hearing loss Heart disease Hereditary disease History of - anemia History of - disorder History of drug abuse Human immunodeficiency virus (HIV) seropositivity Hypercholesterolemia Hypercholesterolemia Infertile Kidney disease Malignant neoplasm of lung Myocardial infarction Parkinson's disease Prostate cancer Psychotic disorder Seizure disorder Severe allergy Stroke Thyroid disease Tuberculosis Tuberculosis Visual disorder Visual impairment No Pertinent Family Hx Physical Exam Vital Signs Vital Signs - First Documented 07/11/19 17:22 Temp 37.2 Pulse 120 Resp 18 B/P (MAP) 113/67 (82) Pulse Ox 97 O2 Delivery Room Air Capillary Refill : Less Than 3 Seconds Height/Weight/BMI Height: 5'1.00" Weight: 115lbs. 0oz. 52.358231xx; 24.00 BMI Method:Stated General Appearance: WD/WN, no apparent distress Neck: non-tender, full range of motion, supple, normal inspection Respiratory: chest non-tender, lungs clear, normal breath sounds Cardiovascular: normal peripheral pulses, regular rate, rhythm Gastrointestinal: normal bowel sounds, soft; No distended, No guarding, No rebound; tenderness; No mass; other (multiple areas of erythema to abdomen, patient reports is from using heating pads. No blisters. ) Extremities: normal range of motion, non-tender, normal inspection, normal capillary refill Neurologic/Psychiatric: no motor/sensory deficits, alert, normal mood/affect, oriented x 3 Skin: normal color, warm/dry Progress/Results/Core Measures Results/Orders Lab Results Laboratory Tests Test 07/11/19 15:30 Range/Units Urine Color YELLOW Urine Clarity CLEAR Urine pH 6.5 5-9 Urine Specific [place] 1.010 L 1.016-1.022 Urine Protein 2+ H NEGATIVE Urine Glucose (UA) NEGATIVE NEGATIVE Urine Ketones 4+ H NEGATIVE Urine Nitrite NEGATIVE NEGATIVE Urine Bilirubin NEGATIVE NEGATIVE Urine Urobilinogen NORMAL NORMAL MG/DL Urine Leukocyte Esterase NEGATIVE NEGATIVE Urine RBC (Auto) 4+ H NEGATIVE Urine RBC RARE /HPF Urine WBC NONE /HPF Urine Squamous Epithelial Cells 5-10 /HPF Urine Crystals NONE /LPF Urine Bacteria NEGATIVE /HPF Urine Casts NONE /LPF Urine Mucus NEGATIVE /LPF Urine Culture Indicated NO Urine Opiates Screen POSITIVE H NEGATIVE Urine Oxycodone Screen NEGATIVE NEGATIVE Urine Methadone Screen NEGATIVE NEGATIVE Urine Propoxyphene Screen NEGATIVE NEGATIVE Urine Barbiturates Screen NEGATIVE NEGATIVE Ur Tricyclic Antidepressants Screen NEGATIVE NEGATIVE Urine Phencyclidine Screen NEGATIVE NEGATIVE Urine Amphetamines Screen NEGATIVE NEGATIVE Urine Methamphetamines Screen NEGATIVE NEGATIVE Urine Benzodiazepines Screen NEGATIVE NEGATIVE Urine Cocaine Screen NEGATIVE NEGATIVE Urine Cannabinoids Screen POSITIVE H NEGATIVE My Orders Orders - MARTIN COLLINS Drug Screen Stat (Urine) (07/11/19 17:23) Ua Culture If Indicated (07/11/19 17:23) Ed Iv/Invasive Line Start (07/11/19 18:18) Ns Iv 1000 Ml (Sodium Chloride 0.9%) (07/11/19 18:18) Hyoscyamine Sl Tablet (Levsin Sl Tablet) (07/11/19 18:30) Haloperidol Injection (Haldol Injectio (07/11/19 18:30) Medications Given in ED Current Medications Medications Dose Ordered Sig/Dani Route Start Time Stop Time Status Last Admin Dose Admin Haloperidol Lactate 2.5 mg ONCE ONCE IV 07/11/19 18:30 07/11/19 18:33 DC 07/11/19 18:42 2.5 MG Hyoscyamine Sulfate 0.125 mg ONCE ONCE SL 07/11/19 18:30 07/11/19 18:33 DC 07/11/19 18:43 0.125 MG Vital Signs/I&O 07/11/19 07/11/19 17:22 19:28 Temp 37.2 37.2 Pulse 120 120 Resp 18 18 B/P (MAP) 113/67 (82) 113/67 (82) Pulse Ox 97 97 O2 Delivery Room Air Blood Pressure Mean: 82 Progress Progress Note : Time: 17:30 Progress Note Patient seen and evaluated, long discussion about options in treating her symptoms. Stressed the importance of her following up with specialist to get to the bottom of her complaints, versus intermittent in EDs. she is willing to try Levsin and Haldol. Although she is requesting fentanyl, I discussed that I would like to try alternative treatments. We will give 1 L of normal saline per IV, 2.5 mg of Haldol IV and Levsin 0.125 mg sublingual. 1830 patient reports her symptoms have improved slightly. Explained that we'll take more time and we will continue to monitor. 0 patient left AMA. Departure Impression Primary Impression: Abdominal pain Qualified Codes: R10.84 - Generalized abdominal pain Disposition: 07 AGAINST MEDICAL ADVICE Condition: Stable Departure-Patient Inst. Decision time for Depature: 19:00 Referrals: NO,LOCAL PHYSICIAN (PCP/Family) Primary Care Physician Copy Copies To 1: CAYDEN RAZA AMY ARNP Jul 11, 2019 19:01
[2019-07-11 19:28] VITALS: BP 113/67
== END 2019-07-11 18:59 | disposition left against medical advice (07) ==
LOC: EDUNIT# 17:08 → ER 17:09
DX: R10.84 Generalized abdominal pain (principal); J45.909 Unspecified asthma, uncomplicated; F41.9 Anxiety disorder, unspecified; F32.9 Major depressive disorder, single episode, unspecified; F17.210 Nicotine dependence, cigarettes, uncomplicated; Z90.49 Acquired absence of other specified parts of digestive tract; Z87.19 Personal history of other diseases of the digestive system; Z82.49 Family history of ischemic heart disease and other diseases of the circulatory system
CPT/HCPCS: 80306; 81000; 96374; 99283

== ENCOUNTER 2019-07-23 09:43 | Emergency (ER) | payer SELFPAY ==
[~2019-07-23] VITALS: Ht 154.9 cm; Wt 54.5 kg
[2019-07-23 10:19] LABS: CLARITY,URINE VERY CLOUDY; COLOR,URINE YELLOW; GLUCOSE, URINE (UA) NEGATIVE (NEGATIVE); KETONES,URINE 4+ (NEGATIVE); LEUKOCYTE ESTERASE ,URINE 2+ (NEGATIVE); NITRITE,URINE NEGATIVE (NEGATIVE); PH,URINE 6 (5-9); PROTEIN,URINE 2+ (NEGATIVE); UROBILINOGEN,URINE 4 MG/DL (NORMAL)
[2019-07-23] MEDS ORDERED: LACTATED RINGERS 1,000 ML IV ONE (10:29)
[2019-07-23] MEDS ORDERED: ONDANSETRON 4 MG/2 ML (SDV) Z0FRAN IVP ONE (10:30)
[2019-07-23] MEDS ORDERED: KETOROLAC 30 MG/ML VIAL IVP ONE (10:30)
[2019-07-23 10:33] LABS: AMPHETAMINE SCREEN, URINE NEGATIVE (NEGATIVE); BARBITURATE SCREEN URINE NEGATIVE (NEGATIVE); BENZODIAZEPINES SCREEN URINE NEGATIVE (NEGATIVE); CANNABINOID SCREEN, URINE POSITIVE (NEGATIVE); COCAINE SCREEN URINE NEGATIVE (NEGATIVE); METHADONE STAT NEGATIVE (NEGATIVE); METHAMPHETAMINE SCREEN URINE S NEGATIVE (NEGATIVE); OPIATE SCREEN URINE POSITIVE (NEGATIVE); OXYCODONE STAT NEGATIVE (NEGATIVE); PROPOXYPHENE STAT NEGATIVE (NEGATIVE); TRICYCLIC ANTIDEPRESSANTS SCRE NEGATIVE (NEGATIVE)
--- NOTE | 2019-07-23 10:37 | ED Abdominal Pain ---
General Chief Complaint: Abdominal/GI Problems Stated Complaint: STOMACH PAIN/VOMITING Nursing Triage Note: PT COMPLAINS OF ABDOMINAL PAIN X 3 DAYS. HAS "TAKEN A HYDROCODONE EVERY DAY TO TRY TO GET RID OF MY PAIN, BUT IT'S NOT WORKING." Sepsis Screen: No Definite Risk Source of Information: Patient Exam Limitations: No Limitations History of Present Illness Date Seen by Provider: Jul 23, 2019 Time Seen by Provider: 10:15 Initial Comments The patient resents to ER by private conveyance with chief complaint of abdominal pain all over. He says been going on for couple days and 2 days but her last hydrocodone for her belly pain was so they didn't really help. He had nausea and vomited a little bit this morning. She had a normal bowel movement this morning that was formed. She has had her gallbladder and appendix out when she was 17. This is a chronic concern with her. She says she does not smoke marijuana but we will find in her urine. She denies any fevers chills or rash. She says there is marking on her abdomen from her heating pad. She has a history of endometriosis. Last Menstrual period was 7 days ago. Allergies and Home Medications Allergies Coded Allergies: No Known Drug Allergies (Unverified , 01/12/16) Home Medications Cephalexin 500 Mg Tablet, 500 MG PO BID Prescribed by: MARIA G ROBERTSON on 08/21/18 1722 Docusate Sodium 100 Mg Capsule, 100 MG PO BID PRN for CONSTIPATION-1ST LINE Prescribed by: CASSY NI on 07/22/18 0807 Ferrous Sulfate 325 Mg Tablet, 325 MG PO DAILY@0800 Prescribed by: CASSY NI on 07/22/18 0807 Hydrocodone Bit/Acetaminophen 1 Tab Tab, 1 TAB PO Q4H PRN for PAIN-MODERATE Prescribed by: CASSY NI on 07/22/18 0807 Hydrocodone Bit/Acetaminophen 1 Tab Tab, 1 EACH PO Q4-6HR PRN for PAIN-MODERATE Prescribed by: MARIA G ROBERTSON on 08/23/18 1227 Ibuprofen 600 Mg Tablet, 600 MG PO Q6H Prescribed by: CASSY NI on 07/22/18 0807 Ondansetron 4 Mg Tab.rapdis, 4 MG PO Q6H PRN for NAUSEA/VOMITING Prescribed by: MARIA G ROBERTSON on 11/27/18 0427 Ondansetron 4 Mg Tab.rapdis, 4 MG SL Q4H PRN for NAUSEA/VOMITING Prescribed by: DONNA EWING on 07/11/19 1418 Ondansetron HCl 4 Mg Tab, 4 MG PO Q4H PRN for NAUSEA/VOMITING-1ST LINE Prescribed by: ERIKA LEWIS on 08/21/18 1534 Qmz297/FA/Omega3/Dha/Fish Oil 1 Each Tab.chew, 2 EACH PO DAILY, (Reported) Prochlorperazine Maleate 25 Mg Supp.rect, 25 MG RC Q6H PRN for NAUSEA/VOMITING- 1ST LINE Prescribed by: MARIA G ROBERTSON on 11/27/18 0427 Prochlorperazine Maleate 25 Mg Supp.rect, 25 MG RC Q6H PRN for NAUSEA/VOMITING- 1ST LINE Prescribed by: MICHA FORTUNE on 12/25/18 2315 Promethazine HCl 25 Mg Tablet, 25 MG PO Q6H PRN for NAUSEA/VOMITING Prescribed by: MARIA G ROBERTSON on 08/21/18 1722 Promethazine HCl 25 Mg Supp.rect, 25 MG RC Q6H PRN for NAUSEA/VOMITING Prescribed by: MICHA FORTUNE on 12/25/18 2315 Patient Home Medication List Home Medication List Reviewed: Yes Review of Systems Review of Systems Constitutional: No chills, No diaphoresis EENTM: No Blurred Vision, No Double Vision Respiratory: Denies Cough, Denies Orthopnea Cardiovascular: Denies Chest Pain, Denies Edema Gastrointestinal: See HPI; Denies Abdomen Distended; Abdominal Pain; Denies Constipated, Denies Diarrhea; Nausea Genitourinary: Denies Burning, Denies Discharge Past Hygtcpm-Yxobnx-Ixvnuc Hx Patient Social History Alcohol Use: Denies Use Recreational Drug Use: Yes Drug of Choice: MARIJUANA Smoking Status: Current Everyday Smoker Type Used: Cigarettes 2nd Hand Smoke Exposure: Yes Recent Foreign Travel: No Contact w/Someone Who Travel: No Recent Infectious Disease Expo: No Recent Hopitalizations: No Immunizations Up To Date Tetanus Booster (TDap): Less than 5yrs PED Vaccines UTD: Yes Date of Pneumonia Vaccine: Nov 12, 2013 Date of Influenza Vaccine: Sep 11, 2015 Seasonal Allergies Seasonal Allergies: No Past Medical History Surgeries: Yes (LAPAROSCOPY-OVARIAN CYST, ENDOMETRIOSIS; EGD) Abdominal, Appendectomy, Gallbladder Respiratory: Yes Asthma, Pneumonia Currently Using CPAP: No Currently Using BIPAP: No Cardiac: No Neurological: No : No Last Menstrual Period: Jul 16, 2019 Reproductive Disorders: Yes (LT OVARIAN CYST) Female 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, Ovarian Cyst 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 Sexually Transmitted Disease: No HIV/AIDS: No Genitourinary: No Gastrointestinal: Yes (CHRONIC ABDOMINAL PAIN, CHRONIC N/V, CANNABIS HYPEREMESIS SYNDROME) Musculoskeletal: No Endocrine: No HEENT: No Cancer: No Psychosocial: Yes Sleep Difficulties, Anxiety, Depression Integumentary: No Blood Disorders: No Adverse Reaction/Blood Tranf: No Family Medical History Cancer GPA-DAD SIDE, Onset:Unknown Cataract GMA-DAD SIDE Dementia GPA-DAD SIDE Family history: Arthritis GPA-MOM SIDE Family history: Cardiovascular disease GMA-DAD SIDE (CAD STINTS) GMA-MOM SIDE (ENLARGED HEART DEFIBALATOR AND PACER) History of - respiratory disease GPA-DAD SIDE (EMPHYSEMA, COPD) No Family History of: AIDS Abdominal aortic aneurysm Abdominal aortic aneurysm Fidel's disease Fidel's disease Alcoholism Alcoholism Alzheimer's disease Aphasia Aphasia Arthritis Asthma Cancer of colon Cancer of mouth Cardiovascular disease Cataracts Chest pain Colon cancer Completed stroke Congenital disease Congenital heart disease Congenital heart disease Congestive heart failure Coronary thrombosis Cystic fibrosis Cystic fibrosis Deafness or hearing loss Diabetes mellitus Drug abuse Dysphagia Dysphasia Family history: Allergy Family history: Alzheimer's disease Family history: Asthma Family history: Breast disease Family history: Coronary thrombosis Family history: Diabetes mellitus Family history: Gastrointestinal disease Family history: Glaucoma Family history: Hypertension Family history: Osteoporosis Family history: Thyroid disorder Fibrocystic disease of breast Gastroenteritis Glaucoma Headache Hearing loss Heart disease Hereditary disease History of - anemia History of - disorder History of drug abuse Human immunodeficiency virus (HIV) seropositivity Hypercholesterolemia Hypercholesterolemia Infertile Kidney disease Malignant neoplasm of lung Myocardial infarction Parkinson's disease Prostate cancer Psychotic disorder Seizure disorder Severe allergy Stroke Thyroid disease Tuberculosis Tuberculosis Visual disorder Visual impairment No Pertinent Family Hx Physical Exam Vital Signs Vital Signs - First Documented 07/23/19 10:05 Temp 36.7 Pulse 108 Resp 16 B/P (MAP) 116/92 (100) Pulse Ox 99 O2 Delivery Room Air Capillary Refill : Less Than 3 Seconds Height/Weight/BMI Height: 5'1.00" Weight: 115lbs. 0oz. 52.190681rx; 22.00 BMI Method:Stated General Appearance: WD/WN, mild distress HEENT: PERRL/EOMI, pharynx normal (oropharynx mildly dry) Respiratory: lungs clear, normal breath sounds, no respiratory distress, no accessory muscle use Cardiovascular: normal peripheral pulses, regular rate, rhythm, tachycardia (108) Gastrointestinal: normal bowel sounds, soft, tenderness (all 4 quadrants without Enriquez sign, McBurney's point tenderness, Rovsing sign, psoas sign, mesenteric signs.) Skin: other (subtle hyper melanotic patches over her anterior abdomen with mildly dry skin.) Progress/Results/Core Measures Results/Orders Lab Results Laboratory Tests Test 07/23/19 09:55 07/23/19 10:55 Range/Units Urine Color YELLOW Urine Clarity VERY CLOUDY H Urine pH 6 5-9 Urine Specific [place] 1.025 H 1.016-1.022 Urine Protein 2+ H NEGATIVE Urine Glucose (UA) NEGATIVE NEGATIVE Urine Ketones 4+ H NEGATIVE Urine Nitrite NEGATIVE NEGATIVE Urine Bilirubin 1+ H NEGATIVE Urine Urobilinogen 4 H NORMAL MG/DL Urine Leukocyte Esterase 2+ H NEGATIVE Urine RBC (Auto) 2+ H NEGATIVE Urine RBC RARE /HPF Urine WBC 2-5 /HPF Urine Squamous Epithelial Cells >50 H /HPF Urine Crystals NONE /LPF Urine Bacteria FEW H /HPF Urine Casts NONE /LPF Urine Mucus NEGATIVE /LPF Urine Culture Indicated NO Urine Opiates Screen POSITIVE H NEGATIVE Urine Oxycodone Screen NEGATIVE NEGATIVE Urine Methadone Screen NEGATIVE NEGATIVE Urine Propoxyphene Screen NEGATIVE NEGATIVE Urine Barbiturates Screen NEGATIVE NEGATIVE Ur Tricyclic Antidepressants Screen NEGATIVE NEGATIVE Urine Phencyclidine Screen NEGATIVE NEGATIVE Urine Amphetamines Screen NEGATIVE NEGATIVE Urine Methamphetamines Screen NEGATIVE NEGATIVE Urine Benzodiazepines Screen NEGATIVE NEGATIVE Urine Cocaine Screen NEGATIVE NEGATIVE Urine Cannabinoids Screen POSITIVE H NEGATIVE White Blood Count 8.8 4.3-11.0 10^3/uL Red Blood Count 4.90 4.35-5.85 10^6/uL Hemoglobin 13.6 11.5-16.0 G/DL Hematocrit 40 35-52 % Mean Corpuscular Volume 81 80-99 FL Mean Corpuscular Hemoglobin 28 25-34 PG Mean Corpuscular Hemoglobin Concent 34 32-36 G/DL Red Cell Distribution Width 14.7 H 10.0-14.5 % Platelet Count 477 H 130-400 10^3/uL Mean Platelet Volume 9.0 7.4-10.4 FL Neutrophils (%) (Auto) 76 H 42-75 % Lymphocytes (%) (Auto) 18 12-44 % Monocytes (%) (Auto) 6 0-12 % Eosinophils (%) (Auto) 0 0-10 % Basophils (%) (Auto) 1 0-10 % Neutrophils # (Auto) 6.7 1.8-7.8 X 10^3 Lymphocytes # (Auto) 1.6 1.0-4.0 X 10^3 Monocytes # (Auto) 0.5 0.0-1.0 X 10^3 Eosinophils # (Auto) 0.0 0.0-0.3 10^3/uL Basophils # (Auto) 0.0 0.0-0.1 10^3/uL My Orders Orders - MAIRA G ROBERTSON Ua Culture If Indicated (07/23/19 09:50) Drug Screen Stat (Urine) (07/23/19 09:50) Hcg,Qualitative Urine (07/23/19 10:29) Cbc With Automated Diff (07/23/19 10:29) Comprehensive Metabolic Panel (07/23/19 10:29) Hs C Reactive Protein (07/23/19 10:29) Ed Iv/Invasive Line Start (07/23/19 10:29) Lactated Ringers (Lr 1000 Ml Iv Solution (07/23/19 10:29) Ketorolac Injection (Toradol Injection) (07/23/19 10:30) Ondansetron Injection (Zofran Injectio (07/23/19 10:30) Vital Signs/I&O 07/23/19 10:05 Temp 36.7 Pulse 108 Resp 16 B/P (MAP) 116/92 (100) Pulse Ox 99 O2 Delivery Room Air Blood Pressure Mean: 100 Progress Progress Note #1: Time: 10:34 Progress Note At first this provider suspected that her abdomen was bruised but that does not seem to be the case as this is chronic finding but she says is from constantly having a heating pad on her belly. He does not seem that her pain is improvement opiates which were use last 2 days ago. She does not have diarrhea per admission so this would place it lower on the differential. She does have a history of nausea and vomiting associated with cannabis use. Has frequent nearly weekly visits to the ER usually seeking escalating doses of opiates to barely control her chronic abdominal pain that has yet present with an acute reason. Toradol, Zofran and a liter of lactated Ringer's as she does appear mildly dry. Her heart rate is elevated when the provider's in the room and she becomes tearful however at rest she has no tears and crying out in pain ceases. Her heart rate dropped back down to 85. Progress Note #2: Time: 11:09 Progress Note K Tracs was consulted demonstrating the patient has been on Suboxone as well as other opiates. Patient states she's no longer on that. The patient and this provider had a long, open conversation and it was explained to her that we would not be providing her with opiates if we cannot find an emergent reason as we suspect that the frequency of her visits and the lack of acute findings historically that she may be having trouble related to opiates and cannabis. We have suggested alternative therapies. She has declined the Toradol and Zofran. She says she is not nauseated. She says every time she's worked up but never find anything dangerous. Her white count today is 8.8. We have offered to do an x-ray of her abdomen as well as wait for the CMP but she says she would prefer just to go home. We have offered Haldol or Compazine as alternative therapies for hyperemesis cannabis. She has declined that. We have instructed her to follow up with her primary care doctor or status care with one and she does not have one and seek workup through a mucking machine operator or DIRECTOR OF HOME CARE HOSPICE to explore the possibility of endometriosis. While she is 2 weeks out from the start of her last period it is unlikely she is having mittelschmerz ovulatory pain since her pain is all over and has represent to the ER weekly. The patient has declined any further workup and we will allow her to discharge home with follow-up cautions. Departure Impression Primary Impression: Abdominal pain Qualified Codes: R10.84 - Generalized abdominal pain Disposition: 01 HOME, SELF-CARE Condition: Stable Departure-Patient Inst. Decision time for Depature: 11:11 Referrals: NO,LOCAL PHYSICIAN (PCP/Family) Primary Care Physician Patient Instructions: Acute Abdomen (Belly Pain), LOCAL PHYSICIAN LIST Add. Discharge Instructions: Follow-up with a primary care provider to discuss outpatient workup of your chronic abdominal pain. Consider referral to a mucking machine operator or DIRECTOR OF HOME CARE HOSPICE. All discharge instructions reviewed with patient and/or family. Voiced understanding. MARIA G ORBERTSON Jul 23, 2019 10:36
[2019-07-23 10:39] LABS: BACTERIA,URINE FEW /HPF; BILIRUBIN,URINE 1+ (NEGATIVE); SQUAMOUS EPITHELIAL CELL,UR >50 /HPF
[2019-07-23 10:40] LABS: RBC,URINE RARE /HPF
--- NOTE | 2019-07-23 10:45 | NUR ---
WHEN DISCUSSING MEDICATIONS WITH PT, PT REFUSED THEM ET STATES THEY NEVER HELP. TOLD HER I WOULD DISCUSS THIS WITH THE
[2019-07-23 11:03] LABS: BASOPHILS % (AUTO) 1 % (0-10); EOSINOPHILS % (AUTO) 0 % (0-10); HEMATOCRIT 40 % (35-52); HEMOGLOBIN 13.6 G/DL (11.5-16.0); LYMPHOCYTES # (AUTO) 1.6 X 10^3 (1.0-4.0); LYMPHOCYTES % (AUTO) 18 % (12-44); MEAN CORPUSCULAR HEMOGLOBIN 28 PG (25-34); MEAN CORPUSCULAR HGB CONC 34 G/DL (32-36); MEAN CORPUSCULAR VOLUME 81 FL (80-99); MONOCYTES # (AUTO) 0.5 X 10^3 (0.0-1.0); MONOCYTES % (AUTO) 6 % (0-12); NEUTROPHILS # (AUTO) 6.7 X 10^3 (1.8-7.8); NEUTROPHILS % (AUTO) 76 % (42-75); PLATELET COUNT 477 10^3/uL (130-400); RED CELL DISTRIBUTION WIDTH 14.7 % (10.0-14.5); WHITE BLOOD COUNT 8.8 10^3/uL (4.3-11.0)
--- NOTE | 2019-07-23 11:04 | NUR ---
UPON GIVING PT HER FLUIDS ET PT STATES HER RIDE IS HERE AND WANTS TO LEAVE. AT THE SAME TIME DR ROBERTSON CAME INTO ROOM AND IS TALKING TO HER.
[2019-07-23 11:16] VITALS: BP 116/92
[2019-07-23 11:25] LABS: ALANINE AMINOTRANSFERASE < 6 U/L (0-55); ALBUMIN 4.3 GM/DL (3.2-4.5); ALKALINE PHOSPHATASE 74 U/L (40-136); BUN/CREATININE RATIO 10; CALCIUM 8.9 MG/DL (8.5-10.1); CARBON DIOXIDE 20 MMOL/L (21-32); CHLORIDE 100 MMOL/L (98-107); GFR ESTIMATED > 60; GLUCOSE 81 MG/DL (70-105); POTASSIUM 3.8 MMOL/L (3.6-5.0); SODIUM 135 MMOL/L (135-145); TOTAL PROTEIN 6.9 GM/DL (6.4-8.2)
== END 2019-07-23 11:16 | disposition home or self-care (01) ==
LOC: EDUNIT# 09:43 → ER 09:44
DX: R10.9 Unspecified abdominal pain (principal); J45.909 Unspecified asthma, uncomplicated; F41.9 Anxiety disorder, unspecified; F32.9 Major depressive disorder, single episode, unspecified; F17.210 Nicotine dependence, cigarettes, uncomplicated; Z90.49 Acquired absence of other specified parts of digestive tract; Z82.49 Family history of ischemic heart disease and other diseases of the circulatory system
CPT/HCPCS: 36415; 80053; 80306; 81000; 84703; 85025; 86141

== ENCOUNTER 2019-07-27 12:05 | Emergency (ER) | payer SELFPAY ==
--- NOTE | 2019-07-27 12:14 | ED Abdominal Pain ---
General Stated Complaint: ABD PAIN Source of Information: Patient, EMS Exam Limitations: No Limitations History of Present Illness Date Seen by Provider: Jul 27, 2019 Time Seen by Provider: 12:10 Initial Comments To ER per EMS from home with severe abdominal pain that started yesterday. History of multiple visits to the emergency room, states that she is stop smoking marijuana and stop using opiates. However last week when she was here she reported hydrocodone used to attempt to alleviate her pain. Advised her on arrival that I would not start with prescribing fentanyl opiates, we would start with Toradol and Zofran and haloperidol for her and adenoid induced hyperemesis syndrome. She replies "I fucking hate you!" and left without exam. Timing/Duration: 1-2 Days Severity/Quality: Moderate, Severe Radiation: No Radiation Activities at Onset: None Associated Symptoms: Denies Symptoms Allergies and Home Medications Allergies Coded Allergies: No Known Drug Allergies (Unverified , 01/12/16) Home Medications Cephalexin 500 Mg Tablet, 500 MG PO BID Prescribed by: MARIA G ROBERSTON on 08/21/18 1722 Docusate Sodium 100 Mg Capsule, 100 MG PO BID PRN for CONSTIPATION-1ST LINE Prescribed by: CASSY NI on 07/22/18 0807 Ferrous Sulfate 325 Mg Tablet, 325 MG PO DAILY@0800 Prescribed by: CASSY NI on 07/22/18 0807 Hydrocodone Bit/Acetaminophen 1 Tab Tab, 1 TAB PO Q4H PRN for PAIN-MODERATE Prescribed by: CASSY NI on 07/22/18 0807 Hydrocodone Bit/Acetaminophen 1 Tab Tab, 1 EACH PO Q4-6HR PRN for PAIN-MODERATE Prescribed by: MARIA G ROBERTSON on 08/23/18 1227 Ibuprofen 600 Mg Tablet, 600 MG PO Q6H Prescribed by: CASSY NI on 07/22/18 0807 Ondansetron 4 Mg Tab.rapdis, 4 MG PO Q6H PRN for NAUSEA/VOMITING Prescribed by: MARIA G ROBERTSON on 11/27/18 0427 Ondansetron 4 Mg Tab.rapdis, 4 MG SL Q4H PRN for NAUSEA/VOMITING Prescribed by: DONNA EWING on 07/11/19 1418 Ondansetron HCl 4 Mg Tab, 4 MG PO Q4H PRN for NAUSEA/VOMITING-1ST LINE Prescribed by: ERIKA LEWIS on 08/21/18 1534 Ppi828/FA/Omega3/Dha/Fish Oil 1 Each Tab.chew, 2 EACH PO DAILY, (Reported) Prochlorperazine Maleate 25 Mg Supp.rect, 25 MG RC Q6H PRN for NAUSEA/VOMITING- 1ST LINE Prescribed by: MARIA G ROBERTSON on 11/27/18 0427 Prochlorperazine Maleate 25 Mg Supp.rect, 25 MG RC Q6H PRN for NAUSEA/VOMITING- 1ST LINE Prescribed by: MICHA FORTUNE on 12/25/18 231 Promethazine HCl 25 Mg Tablet, 25 MG PO Q6H PRN for NAUSEA/VOMITING Prescribed by: MARIA G ROBERTSON on 08/21/18 1722 Promethazine HCl 25 Mg Supp.rect, 25 MG RC Q6H PRN for NAUSEA/VOMITING Prescribed by: MICHA FORTUNE on 12/25/182314 Patient Home Medication List Home Medication List Reviewed: Yes Review of Systems Review of Systems Constitutional: see HPI, chills EENTM: No Symptoms Reported Respiratory: No Symptoms Reported Gastrointestinal: See HPI, Nausea, Vomiting Genitourinary: No Symptoms Reported Musculoskeletal: no symptoms reported Skin: no symptoms reported Psychiatric/Neurological: No Symptoms Reported Endocrine: No Symptoms Reported Past Glamggh-Twjulh-Gabccx Hx Patient Social History Drug of Choice: MARIJUANA Type Used: Cigarettes 2nd Hand Smoke Exposure: Yes Recent Foreign Travel: No Contact w/Someone Who Travel: No Recent Hopitalizations: No Immunizations Up To Date Tetanus Booster (TDap): Less than 5yrs PED Vaccines UTD: Yes Date of Pneumonia Vaccine: Nov 12, 2013 Date of Influenza Vaccine: Sep 11, 2015 Seasonal Allergies Seasonal Allergies: No Past Medical History Surgeries: Yes (LAPAROSCOPY-OVARIAN CYST, ENDOMETRIOSIS; EGD) Abdominal, Appendectomy, Gallbladder Respiratory: Yes Asthma, Pneumonia Currently Using CPAP: No Currently Using BIPAP: No Cardiac: No Neurological: No Reproductive Disorders: Yes (LT OVARIAN CYST) Female 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, 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 Sexually Transmitted Disease: No HIV/AIDS: No Genitourinary: No Gastrointestinal: Yes (CHRONIC ABDOMINAL PAIN, CHRONIC N/V, CANNABIS HYPEREMESIS SYNDROME) Musculoskeletal: No Endocrine: No HEENT: No Cancer: No Psychosocial: Yes Sleep Difficulties, Anxiety, Depression Integumentary: No Blood Disorders: No Adverse Reaction/Blood Tranf: No Family Medical History Cancer GPA-DAD SIDE, Onset:Unknown Cataract GMA-DAD SIDE Dementia GPA-DAD SIDE Family history: Arthritis GPA-MOM SIDE Family history: Cardiovascular disease GMA-DAD SIDE (CAD STINTS) GMA-MOM SIDE (ENLARGED HEART DEFIBALATOR AND PACER) History of - respiratory disease GPA-DAD SIDE (EMPHYSEMA, COPD) No Family History of: AIDS Abdominal aortic aneurysm Abdominal aortic aneurysm Fidel's disease Pembroke's disease Alcoholism Alcoholism Alzheimer's disease Aphasia Aphasia Arthritis Asthma Cancer of colon Cancer of mouth Cardiovascular disease Cataracts Chest pain Colon cancer Completed stroke Congenital disease Congenital heart disease Congenital heart disease Congestive heart failure Coronary thrombosis Cystic fibrosis Cystic fibrosis Deafness or hearing loss Diabetes mellitus Drug abuse Dysphagia Dysphasia Family history: Allergy Family history: Alzheimer's disease Family history: Asthma Family history: Breast disease Family history: Coronary thrombosis Family history: Diabetes mellitus Family history: Gastrointestinal disease Family history: Glaucoma Family history: Hypertension Family history: Osteoporosis Family history: Thyroid disorder Fibrocystic disease of breast Gastroenteritis Glaucoma Headache Hearing loss Heart disease Hereditary disease History of - anemia History of - disorder History of drug abuse Human immunodeficiency virus (HIV) seropositivity Hypercholesterolemia Hypercholesterolemia Infertile Kidney disease Malignant neoplasm of lung Myocardial infarction Parkinson's disease Prostate cancer Psychotic disorder Seizure disorder Severe allergy Stroke Thyroid disease Tuberculosis Tuberculosis Visual disorder Visual impairment No Pertinent Family Hx Physical Exam Vital Signs Capillary Refill : Height/Weight/BMI Height: 5'1.00" Weight: 115lbs. 0oz. 52.640017hn; 22.00 BMI Method:Stated General Appearance: other (physical exam not allowed to be performed as patient left prior to this.) Departure Impression Primary Impression: Left against medical advice Additional Impression: Abdominal pain Qualified Codes: R10.84 - Generalized abdominal pain Disposition: 07 AGAINST MEDICAL ADVICE Condition: Against Medical Advice Departure-Patient Inst. Referrals: NO,LOCAL PHYSICIAN (PCP/Family) Primary Care Physician ERIKA LEWIS APRN Jul 27, 2019 12:14
== END 2019-07-27 12:12 | disposition left against medical advice (07) ==
LOC: EDUNIT# 12:05 → ER 12:06
DX: R10.84 Generalized abdominal pain (principal); J45.909 Unspecified asthma, uncomplicated; F41.9 Anxiety disorder, unspecified; F32.9 Major depressive disorder, single episode, unspecified; Z87.01 Personal history of pneumonia (recurrent); Z77.22 Contact with and (suspected) exposure to environmental tobacco smoke (acute) (chronic); Z90.49 Acquired absence of other specified parts of digestive tract; Z82.49 Family history of ischemic heart disease and other diseases of the circulatory system

== ENCOUNTER 2019-08-10 09:21 | Emergency (ER) | payer MEDICAID, OTHER ==
[~2019-08-10] VITALS: Ht 157 cm; Wt 54.5 kg
[2019-08-10 09:30] VITALS: BP 133/93
--- NOTE | 2019-08-10 09:47 | NUR ---
OPENED DOOR TO GO START IV ET PT STATES SHE IS LEAVING. WALKED WITHOUT DIFFICULTY AND IS NO LONGER CRYING.
--- NOTE | 2019-08-10 09:51 | ED Back Pain ---
General Chief Complaint: Back Problems Stated Complaint: ABD PAIN;BACK PAIN Nursing Triage Note: BACK PAIN X3 DAYS. HAS NOT TAKEN ANY MEDICATIONS. Nursing Sepsis Screen: No Definite Risk Source of Information: Patient Exam Limitations: No Limitations History of Present Illness Date Seen by Provider: Aug 10, 2019 Time Seen by Provider: 09:35 Initial Comments This 23-year-old woman presents to the emergency room with complaints of lower back pain for the past couple of days. She states [id number] medications and heat have not been helpful. She tried taking one of her mothers hydrocodone pills a couple days ago which also did not help. She denies any lower extremity weakness or paresthesias, saddle paresthesia, or bowel or bladder dysfunction. Patient is tearful. Patient states she has not seen her primary care provider as she does not have a doctor. She sees [facility] only for substance abuse treatment. She last received Suboxone therapy early this month. Allergies and Home Medications Allergies Coded Allergies: No Known Drug Allergies (Unverified , 01/12/16) Home Medications Cephalexin 500 Mg Tablet, 500 MG PO BID Prescribed by: MARIA G ROBERTSON on 08/21/18 1722 Docusate Sodium 100 Mg Capsule, 100 MG PO BID PRN for CONSTIPATION-1ST LINE Prescribed by: CASSY NI on 07/22/18 0807 Ferrous Sulfate 325 Mg Tablet, 325 MG PO DAILY@0800 Prescribed by: CASSY NI on 07/22/18 0807 Hydrocodone Bit/Acetaminophen 1 Tab Tab, 1 TAB PO Q4H PRN for PAIN-MODERATE Prescribed by: CASSY NI on 07/22/18 0807 Hydrocodone Bit/Acetaminophen 1 Tab Tab, 1 EACH PO Q4-6HR PRN for PAIN-MODERATE Prescribed by: MARIA G ROBERTSON on 08/23/18 1227 Ibuprofen 600 Mg Tablet, 600 MG PO Q6H Prescribed by: CASSY NI on 07/22/18 0807 Ondansetron 4 Mg Tab.rapdis, 4 MG PO Q6H PRN for NAUSEA/VOMITING Prescribed by: MARIA G ROBERTSON on 11/27/18 0427 Ondansetron 4 Mg Tab.rapdis, 4 MG SL Q4H PRN for NAUSEA/VOMITING Prescribed by: DONNA EWING on 07/11/19 1418 Ondansetron HCl 4 Mg Tab, 4 MG PO Q4H PRN for NAUSEA/VOMITING-1ST LINE Prescribed by: ERIKA LEWIS on 08/21/18 1534 Omc254/FA/Omega3/Dha/Fish Oil 1 Each Tab.chew, 2 EACH PO DAILY, (Reported) Prochlorperazine Maleate 25 Mg Supp.rect, 25 MG RC Q6H PRN for NAUSEA/VOMITING- 1ST LINE Prescribed by: MARIA G ROBERTSON on 11/27/18 0427 Prochlorperazine Maleate 25 Mg Supp.rect, 25 MG RC Q6H PRN for NAUSEA/VOMITING- 1ST LINE Prescribed by: MICHA FORTUNE on 12/25/18 2315 Promethazine HCl 25 Mg Tablet, 25 MG PO Q6H PRN for NAUSEA/VOMITING Prescribed by: MARIA G ROBERTSON on 08/21/18 1722 Promethazine HCl 25 Mg Supp.rect, 25 MG RC Q6H PRN for NAUSEA/VOMITING Prescribed by: MICHA FORTUNE on 12/25/18 231 Patient Home Medication List Home Medication List Reviewed: Yes Review of Systems Constitutional: no symptoms reported EENTM: no symptoms reported Respiratory: no symptoms reported Cardiovascular: no symptoms reported Gastrointestinal: no symptoms reported Genitourinary: no symptoms reported : No Musculoskeletal: see HPI Skin: no symptoms reported Psychiatric/Neurological: No Symptoms Reported Past Mampeeh-Zxaara-Pghmwn Hx Patient Social History Alcohol Use: Denies Use Recreational Drug Use: Yes Drug of Choice: MARIJUANA Type Used: Cigarettes 2nd Hand Smoke Exposure: Yes Recent Foreign Travel: No Contact w/Someone Who Travel: No Recent Infectious Disease Expo: No Recent Hopitalizations: No Immunizations Up To Date Tetanus Booster (TDap): Less than 5yrs PED Vaccines UTD: Yes Date of Pneumonia Vaccine: Nov 12, 2013 Date of Influenza Vaccine: Sep 11, 2015 Seasonal Allergies Seasonal Allergies: No Past Medical History Surgeries: Yes (LAPAROSCOPY-OVARIAN CYST, ENDOMETRIOSIS; EGD) Abdominal, Appendectomy, Gallbladder Respiratory: Yes Asthma, Pneumonia Currently Using CPAP: No Currently Using BIPAP: No Cardiac: No Neurological: No Reproductive Disorders: Yes (LT OVARIAN CYST) Female 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, 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 Sexually Transmitted Disease: No HIV/AIDS: No Genitourinary: No Gastrointestinal: Yes (CHRONIC ABDOMINAL PAIN, CHRONIC N/V, CANNABIS HYPEREMESIS SYNDROME) Musculoskeletal: No Endocrine: No HEENT: No Cancer: No Psychosocial: Yes Sleep Difficulties, Anxiety, Depression Integumentary: No Blood Disorders: No Adverse Reaction/Blood Tranf: No Family Medical History Cancer GPA-DAD SIDE, Onset:Unknown Cataract GMA-DAD SIDE Dementia GPA-DAD SIDE Family history: Arthritis GPA-MOM SIDE Family history: Cardiovascular disease GMA-DAD SIDE (CAD STINTS) GMA-MOM SIDE (ENLARGED HEART DEFIBALATOR AND PACER) History of - respiratory disease GPA-DAD SIDE (EMPHYSEMA, COPD) No Family History of: AIDS Abdominal aortic aneurysm Abdominal aortic aneurysm Alcona's disease Alcona's disease Alcoholism Alcoholism Alzheimer's disease Aphasia Aphasia Arthritis Asthma Cancer of colon Cancer of mouth Cardiovascular disease Cataracts Chest pain Colon cancer Completed stroke Congenital disease Congenital heart disease Congenital heart disease Congestive heart failure Coronary thrombosis Cystic fibrosis Cystic fibrosis Deafness or hearing loss Diabetes mellitus Drug abuse Dysphagia Dysphasia Family history: Allergy Family history: Alzheimer's disease Family history: Asthma Family history: Breast disease Family history: Coronary thrombosis Family history: Diabetes mellitus Family history: Gastrointestinal disease Family history: Glaucoma Family history: Hypertension Family history: Osteoporosis Family history: Thyroid disorder Fibrocystic disease of breast Gastroenteritis Glaucoma Headache Hearing loss Heart disease Hereditary disease History of - anemia History of - disorder History of drug abuse Human immunodeficiency virus (HIV) seropositivity Hypercholesterolemia Hypercholesterolemia Infertile Kidney disease Malignant neoplasm of lung Myocardial infarction Parkinson's disease Prostate cancer Psychotic disorder Seizure disorder Severe allergy Stroke Thyroid disease Tuberculosis Tuberculosis Visual disorder Visual impairment No Pertinent Family Hx Physical Exam Vital Signs Vital Signs - First Documented 08/10/19 09:30 Temp 37.7 Pulse 100 Resp 16 B/P (MAP) 133/93 (106) Pulse Ox 97 O2 Delivery Room Air Capillary Refill : Less Than 3 Seconds Height, Weight, BMI Height: 5'1.00" Weight: 115lbs. 0oz. 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 She any symptoms of spinal compression. She was noted to be significantly tachycardic. I recommended checking labs and hydrating in addition to treating her pain with Toradol and Norflex. Patient concerned did "you know Toradol doesn't work for me". I advised these were excellent therapies for acute low back pain and we would start with these therapies. She then walked out of the emergency room without any treatment. Departure Impression Primary Impression: Acute low back pain Qualified Codes: M54.5 - Low back pain Additional Impression: Tachycardia Disposition: 07 AGAINST MEDICAL ADVICE Condition: Against Medical Advice Departure-Patient Inst. Referrals: NO,LOCAL PHYSICIAN (PCP) Primary Care Physician DONNA MOHAMUD MD Aug 10, 2019 09:51 POS
== END 2019-08-10 09:47 | disposition other institution (70) ==
LOC: EDUNIT# 09:21 → ER 09:22
DX: M54.5 Low back pain (principal); R00.0 Tachycardia, unspecified; J45.909 Unspecified asthma, uncomplicated; F41.9 Anxiety disorder, unspecified; F32.9 Major depressive disorder, single episode, unspecified; Z82.49 Family history of ischemic heart disease and other diseases of the circulatory system; Z77.22 Contact with and (suspected) exposure to environmental tobacco smoke (acute) (chronic); Z90.49 Acquired absence of other specified parts of digestive tract
CPT/HCPCS: 99281

== ENCOUNTER 2019-10-16 12:30 | Emergency (ER) | payer MEDICAID ==
[~2019-10-16] VITALS: Ht 162.5 cm; Wt 54.5 kg
[~2019-10-16 12:30] MED LIST changes: -TRAM50TA2 PO
--- NOTE | 2019-10-16 12:44 | ED GI ---
General Chief Complaint: Abdominal/GI Problems Stated Complaint: N/V Nursing Triage Note: PT TO RM 3 BY WHEELCHAIR COMPLAINING OF N/V/ ABD PAIN. Sepsis Screen: No Definite Risk Source of Information: Patient Exam Limitations: No Limitations History of Present Illness Date Seen by Provider: Oct 16, 2019 Time Seen by Provider: 12:42 Initial Comments To ER by mother with reports of nausea vomiting and abdominal pain. They report that her "cyclic vomiting is acting up". 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 She states that she had been cleaning but had a relapse recently because she "has a lot going on right now". Mother states the patient has had IV Haldol before and this has been helpful. Hot showers are the only thing that helps with her symptoms. Timing/Duration: 1-2 Days Severity/Quality: Cramping Location: Periumbilical, Other Activities at Onset: None Associated Symptoms: Nausea/Vomiting Allergies and Home Medications Allergies Coded Allergies: No Known Drug Allergies (Unverified , 01/12/16) Home Medications Capsaicin 42.5 Gm Cream..g., 42.5 GM TP BID apply to anterior abdomen twice a day as needed for pain and vomiting. Prescribed by: ERIKA LEWIS on 10/16/19 1407 Cephalexin 500 Mg Tablet, 500 MG PO BID Prescribed by: MARIA G ROBERTSON on 08/21/18 1722 Docusate Sodium 100 Mg Capsule, 100 MG PO BID PRN for CONSTIPATION-1ST LINE Prescribed by: CASSY NI on 07/22/18 0807 Ferrous Sulfate 325 Mg Tablet, 325 MG PO DAILY@0800 Prescribed by: CASSY NI on 07/22/18 0807 Hydrocodone Bit/Acetaminophen 1 Tab Tab, 1 TAB PO Q4H PRN for PAIN-MODERATE Prescribed by: CASSY NI on 07/22/18 0807 Hydrocodone Bit/Acetaminophen 1 Tab Tab, 1 EACH PO Q4-6HR PRN for PAIN-MODERATE Prescribed by: MARIA G ROBERTSON on 08/23/18 1227 Ibuprofen 600 Mg Tablet, 600 MG PO Q6H Prescribed by: CASSY NI on 07/22/18 0807 Ondansetron 4 Mg Tab.rapdis, 4 MG PO Q6H PRN for NAUSEA/VOMITING Prescribed by: MARIA G ROBERTSON on 11/27/18 0427 Ondansetron 4 Mg Tab.rapdis, 4 MG SL Q4H PRN for NAUSEA/VOMITING Prescribed by: DONNA EWING on 07/11/19 1418 Ondansetron 8 Mg Tab.rapdis, 8 MG PO TID Prescribed by: ERIKA LEWIS on 10/16/19 1407 Ondansetron HCl 4 Mg Tab, 4 MG PO Q4H PRN for NAUSEA/VOMITING-1ST LINE Prescribed by: ERIKA LEWIS on 08/21/18 1534 Jyz106/FA/Omega3/Dha/Fish Oil 1 Each Tab.chew, 2 EACH PO DAILY, (Reported) Prochlorperazine Maleate 25 Mg Supp.rect, 25 MG RC Q6H PRN for NAUSEA/VOMITING- 1ST LINE Prescribed by: MARIA G ROBERTSON on 11/27/18 042 Prochlorperazine Maleate 25 Mg Supp.rect, 25 MG RC Q6H PRN for NAUSEA/VOMITING- 1ST LINE Prescribed by: MICHA FORTUNE on 12/25/18 231 Prochlorperazine Maleate 10 Mg Tablet, 10 MG PO TID PRN for NAUSEA/VOMITING Prescribed by: ERIKA LEWIS on 10/16/19 140 Promethazine HCl 25 Mg Tablet, 25 MG PO Q6H PRN for NAUSEA/VOMITING Prescribed by: MARIA G ROBERTSON on 08/21/18 1722 Promethazine HCl 25 Mg Supp.rect, 25 MG RC Q6H PRN for NAUSEA/VOMITING Prescribed by: MICHA FORTUNE on 12/25/18 231 Patient Home Medication List Home Medication List Reviewed: Yes Review of Systems Review of Systems Constitutional: see HPI EENTM: No Symptoms Reported Respiratory: No Symptoms Reported Cardiovascular: No Symptoms Reported Gastrointestinal: See HPI, Abdominal Pain, Nausea, Vomiting Genitourinary: No Symptoms Reported Musculoskeletal: no symptoms reported Skin: no symptoms reported Psychiatric/Neurological: No Symptoms Reported Endocrine: No Symptoms Reported Hematologic/Lymphatic: No Symptoms Reported Past Sjpezyy-Awulpz-Hazfkg Hx Patient Social History Alcohol Use: Denies Use Recreational Drug Use: Yes Drug of Choice: MARIJUANA Smoking Status: Current Everyday Smoker Type Used: Cigarettes 2nd Hand Smoke Exposure: Yes Recent Foreign Travel: No Contact w/Someone Who Travel: No Recent Infectious Disease Expo: No Recent Hopitalizations: No Immunizations Up To Date Tetanus Booster (TDap): Less than 5yrs PED Vaccines UTD: Yes Date of Pneumonia Vaccine: Nov 12, 2013 Date of Influenza Vaccine: Sep 11, 2015 Seasonal Allergies Seasonal Allergies: No Past Medical History Surgeries: Yes (LAPAROSCOPY-OVARIAN CYST, ENDOMETRIOSIS; EGD) Abdominal, Appendectomy, Gallbladder Respiratory: Yes Asthma, Pneumonia Currently Using CPAP: No Currently Using BIPAP: No Cardiac: No Neurological: No Reproductive Disorders: Yes (LT OVARIAN CYST) Female 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, Ovarian Cyst [employer] History: IUD Sexually Transmitted Disease: No HIV/AIDS: No Genitourinary: No Gastrointestinal: Yes (CHRONIC ABDOMINAL PAIN, CHRONIC N/V, CANNABIS HYPEREMESIS SYNDROME) Musculoskeletal: No Endocrine: No HEENT: No Cancer: No Psychosocial: Yes Sleep Difficulties, Anxiety, Depression Integumentary: No Blood Disorders: No Adverse Reaction/Blood Tranf: No Family Medical History Cancer GPA-DAD SIDE, Onset:Unknown Cataract GMA-DAD SIDE Dementia GPA-DAD SIDE Family history: Arthritis GPA-MOM SIDE Family history: Cardiovascular disease GMA-DAD SIDE (CAD STINTS) GMA-MOM SIDE (ENLARGED HEART DEFIBALATOR AND PACER) History of - respiratory disease GPA-DAD SIDE (EMPHYSEMA, COPD) No Family History of: AIDS Abdominal aortic aneurysm Abdominal aortic aneurysm [place]'s disease Fidel's disease Alcoholism Alcoholism Alzheimer's disease Aphasia Aphasia Arthritis Asthma Cancer of colon Cancer of mouth Cardiovascular disease Cataracts Chest pain Colon cancer Completed stroke Congenital disease Congenital heart disease Congenital heart disease Congestive heart failure Coronary thrombosis Cystic fibrosis Cystic fibrosis Deafness or hearing loss Diabetes mellitus Drug abuse Dysphagia Dysphasia Family history: Allergy Family history: Alzheimer's disease Family history: Asthma Family history: Breast disease Family history: Coronary thrombosis Family history: Diabetes mellitus Family history: Gastrointestinal disease Family history: Glaucoma Family history: Hypertension Family history: Osteoporosis Family history: Thyroid disorder Fibrocystic disease of breast Gastroenteritis Glaucoma Headache Hearing loss Heart disease Hereditary disease History of - anemia History of - disorder History of drug abuse Human immunodeficiency virus (HIV) seropositivity Hypercholesterolemia Hypercholesterolemia Infertile Kidney disease Malignant neoplasm of lung Myocardial infarction Parkinson's disease Prostate cancer Psychotic disorder Seizure disorder Severe allergy Stroke Thyroid disease Tuberculosis Tuberculosis Visual disorder Visual impairment No Pertinent Family Hx Physical Exam Vital Signs Vital Signs - First Documented 10/16/19 12:35 Temp 36.4 Pulse 88 Resp 20 B/P (MAP) 113/95 (101) Pulse Ox 98 O2 Delivery Room Air Capillary Refill : Less Than 3 Seconds Height/Weight/BMI Height: 5'1.00" Weight: 115lbs. 0oz. [id number]; 20.00 BMI Method:Stated General Appearance: WD/WN, no apparent distress, thin HEENT: PERRL/EOMI, normal ENT inspection Respiratory: no respiratory distress, no accessory muscle use Cardiovascular: regular rate, rhythm, no murmur Gastrointestinal: normal bowel sounds, non tender, soft Extremities: normal range of motion, non-tender Neurologic/Psychiatric: alert, normal mood/affect, oriented x 3 Skin: normal color, warm/dry Progress/Results/Core Measures Results/Orders Lab Results Laboratory Tests Test 10/16/19 12:40 10/16/19 13:55 Range/Units White Blood Count 17.6 H 4.3-11.0 10^3/uL Red Blood Count 4.64 4.35-5.85 10^6/uL Hemoglobin 14.0 11.5-16.0 G/DL Hematocrit 40 35-52 % Mean Corpuscular Volume 85 80-99 FL Mean Corpuscular Hemoglobin 30 25-34 PG Mean Corpuscular Hemoglobin Concent 35 32-36 G/DL Red Cell Distribution Width 13.6 10.0-14.5 % Platelet Count 351 130-400 10^3/uL Mean Platelet Volume 9.7 7.4-10.4 FL Neutrophils (%) (Auto) 83 H 42-75 % Lymphocytes (%) (Auto) 11 L 12-44 % Monocytes (%) (Auto) 7 0-12 % Eosinophils (%) (Auto) 0 0-10 % Basophils (%) (Auto) 0 0-10 % Neutrophils # (Auto) 14.6 H 1.8-7.8 X 10^3 Lymphocytes # (Auto) 1.9 1.0-4.0 X 10^3 Monocytes # (Auto) 1.2 H 0.0-1.0 X 10^3 Eosinophils # (Auto) 0.0 0.0-0.3 10^3/uL Basophils # (Auto) 0.0 0.0-0.1 10^3/uL Neutrophils % (Manual) 79 % Lymphocytes % (Manual) 18 % Monocytes % (Manual) 3 % Eosinophils % (Manual) 0 % Basophils % (Manual) 0 % Band Neutrophils 0 % Blood Morphology Comment NORMAL Sodium Level 137 135-145 MMOL/L Potassium Level 2.9 L 3.6-5.0 MMOL/L Chloride Level 96 L 98-107 MMOL/L Carbon Dioxide Level 21 21-32 MMOL/L Anion Gap 20 H 5-14 MMOL/L Blood Urea Nitrogen 14 7-18 MG/DL Creatinine 0.70 0.60-1.30 MG/DL Estimat Glomerular Filtration Rate > 60 BUN/Creatinine Ratio 20 Glucose Level 104 70-105 MG/DL Calcium Level 9.8 8.5-10.1 MG/DL Corrected Calcium 8.5-10.1 MG/DL Total Bilirubin 1.0 0.1-1.0 MG/DL Aspartate Amino Transf (AST/SGOT) 15 5-34 U/L Alanine Aminotransferase (ALT/SGPT) 21 0-55 U/L Alkaline Phosphatase 85 40-136 U/L Total Protein 7.8 6.4-8.2 GM/DL Albumin 5.0 H 3.2-4.5 GM/DL Lipase 4 L 8-78 U/L Serum Test, Qualitative NEGATIVE NEGATIVE My Orders Orders - ERIKA LEWIS APRN Cbc With Automated Diff (10/16/19 12:41) Comprehensive Metabolic Panel (10/16/19 12:41) Lipase (10/16/19 12:41) Ua Culture If Indicated (10/16/19 12:41) Drug Screen Stat (Urine) (10/16/19 12:41) Hcg,Qualitative Serum (10/16/19 12:41) Ed Iv/Invasive Line Start (10/16/19 12:41) Ns Iv 1000 Ml (Sodium Chloride 0.9%) (10/16/19 12:45) Diphenhydramine Injection (Benadryl Inje (10/16/19 12:45) Haloperidol Injection (Haldol Injectio (10/16/19 12:45) Manual Differential (10/16/19 12:40) Ns Iv 500 Ml (Sodium Chloride 0.9%) (10/16/19 13:15) Potassium Cl 10meq/50ml Ivpb (Kcl 10 Meq (10/16/19 13:15) Ketorolac Injection (Toradol Injection) (10/16/19 14:15) Medications Given in ED Current Medications Medications Dose Ordered Sig/Dani Route Start Time Stop Time Status Last Admin Dose Admin Diphenhydramine HCl 25 mg ONCE ONCE IVP 10/16/19 12:45 10/16/19 12:46 DC 10/16/19 12:54 25 MG Haloperidol Lactate 5 mg ONCE ONCE IV 10/16/19 12:45 10/16/19 12:46 DC 10/16/19 12:55 5 MG Potassium Chloride 50 ml @ 50 mls/hr ONCE ONCE IV 10/16/19 13:15 10/16/19 14:14 10/16/19 13:59 50 MLS/HR Vital Signs/I&O 10/16/19 12:35 Temp 36.4 Pulse 88 Resp 20 B/P (MAP) 113/95 (101) Pulse Ox 98 O2 Delivery Room Air Blood Pressure Mean: 101 Departure Impression Primary Impression: Cyclical vomiting syndrome Additional Impressions: Marijuana abuse Chronic abdominal pain Electrolyte imbalance Disposition: 01 HOME, SELF-CARE Condition: Stable Departure-Patient Inst. Decision time for Depature: 14:04 Referrals: NO,LOCAL PHYSICIAN (PCP/Family) Primary Care Physician Patient Instructions: ALCOHOL AND SUBSTANCE ABUSE, NO INSTRUCTIONS GIVEN, OUTPT SUBSTANCE ABUSE RESOURCE Add. Discharge Instructions: 1. Return to Er for any concerns 2. Follow up with your doctor next week All discharge instructions reviewed with patient and/or family. Voiced understanding. Scripts Potassium Chloride (Potassium Chloride) 20 Meq Packet 20 MEQ PO BID, #6 PACKET Prov: ERIKA LEWIS APRN 10/16/19 Capsaicin (Capsaicin) 42.5 Gm Cream..g. 42.5 GM TP BID, #1 TUBE apply to anterior abdomen twice a day as needed for pain and vomiting. Prov: ERIKA LEWIS APRN 10/16/19 Ondansetron (Ondansetron Odt) 8 Mg Tab.rapdis 8 MG PO TID, #14 TAB Prov: ERIKA LEWIS APRN 10/16/19 Prochlorperazine Maleate (Compazine) 10 Mg Tablet 10 MG PO TID PRN for NAUSEA/VOMITING, #30 TAB Prov: ERIKA LEWIS APRN 10/16/19 ERIKA LEWIS APRN Oct 16, 2019 12:44
[2019-10-16] MEDS ORDERED: NS IV 1000 ML 1,000 ML IV SCH (12:45)
[2019-10-16] MEDS ORDERED: HALOPERIDOL 5 MG/ML (HALDOL) AMP IV ONE (12:45)
[2019-10-16] MEDS ORDERED: diphenhydrAMINE 50 MG/ML INJ (BENADRYL) IVP ONE (12:45)
[2019-10-16 12:48] LABS: BASOPHILS % (AUTO) 0 % (0-10); EOSINOPHILS % (AUTO) 0 % (0-10); HEMATOCRIT 40 % (35-52); LYMPHOCYTES # (AUTO) 1.9 X 10^3 (1.0-4.0); LYMPHOCYTES % (AUTO) 11 % (12-44); MEAN CORPUSCULAR HEMOGLOBIN 30 PG (25-34); MEAN CORPUSCULAR HGB CONC 35 G/DL (32-36); MEAN CORPUSCULAR VOLUME 85 FL (80-99); MEAN PLATELET VOLUME 9.7 FL (7.4-10.4); MONOCYTES # (AUTO) 1.2 X 10^3 (0.0-1.0); MONOCYTES % (AUTO) 7 % (0-12); NEUTROPHILS # (AUTO) 14.6 X 10^3 (1.8-7.8); NEUTROPHILS % (AUTO) 83 % (42-75); PLATELET COUNT 351 10^3/uL (130-400); RED CELL DISTRIBUTION WIDTH 13.6 % (10.0-14.5); WHITE BLOOD COUNT 17.6 10^3/uL (4.3-11.0)
--- NOTE | 2019-10-16 13:00 | NUR ---
Pt anxious and crying at this time. Mother at bedside. Both cooperative. Medications administered.
[2019-10-16 13:04] LABS: ALANINE AMINOTRANSFERASE 21 U/L (0-55); ALKALINE PHOSPHATASE 85 U/L (40-136); BUN/CREATININE RATIO 20; CALCIUM 9.8 MG/DL (8.5-10.1); CARBON DIOXIDE 21 MMOL/L (21-32); CHLORIDE 96 MMOL/L (98-107); GFR ESTIMATED > 60; GLUCOSE 104 MG/DL (70-105); LIPASE 4 U/L (8-78); POTASSIUM 2.9 MMOL/L (3.6-5.0); SODIUM 137 MMOL/L (135-145); TOTAL PROTEIN 7.8 GM/DL (6.4-8.2)
[2019-10-16 13:05] LABS: BAND NEUTROPHILS 0 %; BASOPHILS % (MANUAL) 0 %; EOSINOPHILS % (MANUAL) 0 %; LYMPHOCYTES % (MANUAL) 18 %; MONOCYTES % (MANUAL) 3 %; NEUTROPHILS % (MANUAL) 79 %
[2019-10-16 13:06] LABS: RBC MORPH NORMAL
[2019-10-16] MEDS ORDERED: POTASSIUM CL 10MEQ/50ML IVPB 50 ML IV ONE (13:15)
[2019-10-16] MEDS ORDERED: NS IV 500 ML 500 ML IV SCH (13:15)
[2019-10-16 14:01] LABS: BILIRUBIN,URINE NEGATIVE (NEGATIVE); CLARITY,URINE CLEAR; COLOR,URINE YELLOW; GLUCOSE, URINE (UA) NEGATIVE (NEGATIVE); KETONES,URINE 2+ (NEGATIVE); LEUKOCYTE ESTERASE ,URINE NEGATIVE (NEGATIVE); NITRITE,URINE NEGATIVE (NEGATIVE); PROTEIN,URINE NEGATIVE (NEGATIVE)
[2019-10-16] MEDS ORDERED: PROC-1 PO (14:07)
[2019-10-16] MEDS ORDERED: ONDA8TAB13 PO (14:07)
[2019-10-16] MEDS ORDERED: CAPS42.513 TP (14:07)
[2019-10-16] MEDS ORDERED: POTA20PA28 PO (14:08)
[2019-10-16 14:12] LABS: BACTERIA,URINE NEGATIVE /HPF
[2019-10-16 14:14] LABS: AMPHETAMINE SCREEN, URINE NEGATIVE (NEGATIVE); BARBITURATE SCREEN URINE NEGATIVE (NEGATIVE); BENZODIAZEPINES SCREEN URINE NEGATIVE (NEGATIVE); CANNABINOID SCREEN, URINE POSITIVE (NEGATIVE); COCAINE SCREEN URINE NEGATIVE (NEGATIVE); METHADONE STAT NEGATIVE (NEGATIVE); METHAMPHETAMINE SCREEN URINE S NEGATIVE (NEGATIVE); OPIATE SCREEN URINE POSITIVE (NEGATIVE); OXYCODONE STAT NEGATIVE (NEGATIVE); PROPOXYPHENE STAT NEGATIVE (NEGATIVE); TRICYCLIC ANTIDEPRESSANTS SCRE NEGATIVE (NEGATIVE)
[2019-10-16] MEDS ORDERED: KETOROLAC 30 MG/ML VIAL IVP ONE (14:15)
[2019-10-16 15:08] VITALS: BP 112/77
[2019-10-17] MEDS ORDERED: HALO5TAB PO (08:02)
== END 2019-10-16 15:05 | disposition home or self-care (01) ==
LOC: EDUNIT# 12:30 → ER 12:31
DX: R11.15 Cyclical vomiting syndrome unrelated to migraine (principal); F12.10 Cannabis abuse, uncomplicated; G89.29 Other chronic pain; R10.33 Periumbilical pain; E87.8 Other disorders of electrolyte and fluid balance, not elsewhere classified; J45.909 Unspecified asthma, uncomplicated; F41.9 Anxiety disorder, unspecified; F32.9 Major depressive disorder, single episode, unspecified; F17.210 Nicotine dependence, cigarettes, uncomplicated; Z90.49 Acquired absence of other specified parts of digestive tract; Z82.49 Family history of ischemic heart disease and other diseases of the circulatory system
CPT/HCPCS: 36415; 80053; 80306; 81000; 83690; 84703; 85007; 85027; 96361; 96374; 96375

== ENCOUNTER 2019-10-17 05:03 | Emergency (ER) | payer MEDICAID ==
[~2019-10-17] VITALS: Ht 157 cm; Wt 54.0 kg
[~2019-10-17 05:03] MED LIST changes: +CAPS42.513 TP; +POTA20PA28 PO; +PROC-1 PO
[2019-10-17] MEDS ORDERED: LACTATED RINGERS 1,000 ML IV ONE (05:19)
[2019-10-17] MEDS ORDERED: ONDANSETRON 4 MG/2 ML (SDV) Z0FRAN IVP ONE (05:30)
[2019-10-17] MEDS ORDERED: PROMETHAZINE INJ 25 MG/ML (PHENERGAN) AMP IVP ONE (05:30)
[2019-10-17] MEDS ORDERED: KETOROLAC 30 MG/ML VIAL IVP ONE (05:30)
--- NOTE | 2019-10-17 05:30 | ED Abdominal Pain ---
General Stated Complaint: LOCK JAW Source of Information: Patient, Family (mom) Exam Limitations: No Limitations (MARIA G CRABTREE) History of Present Illness Date Seen by Provider: Oct 17, 2019 Time Seen by Provider: 05:08 Initial Comments The patient presents by private conveyance with mom and chief complaint that for the past 2 days she's been having nausea vomiting abdominal pain and now locked jaw and her being pulled over to the right. She has a history of cyclical v omiting and marijuana use. Mom says they were here 2 days ago and was given some IV fluids nausea medicine and sent home with Phenergan, Compazine and Zofran which they have been using with modest relief. Today however the patient cannot open her mouth and drink. The patient is able to answer questions and give history on her own. She is cooperative. She denies any diarrhea but is having some nausea and vomiting without blood in it. She's had a gallbladder and appendix removed surgically. She has a with her last menstrual. Being approximately one week ago. She does not take control or any other medications. She says the pain in her abdomen is everywhere feels that somebody is stabbing her and rates it as 10 out of 10. (MARIA G CRABTREE) Allergies and Home Medications Allergies Coded Allergies: No Known Drug Allergies (Unverified , 01/12/16) Home Medications Capsaicin 42.5 Gm Cream..g., 42.5 GM TP BID apply to anterior abdomen twice a day as needed for pain and vomiting. Prescribed by: ERIKA LEWIS on 10/16/19 1407 Cephalexin 500 Mg Tablet, 500 MG PO BID Prescribed by: MARIA G CRABTREE on 08/21/18 1722 Docusate Sodium 100 Mg Capsule, 100 MG PO BID PRN for CONSTIPATION-1ST LINE Prescribed by: CASSY NI on 07/22/18 0807 Ferrous Sulfate 325 Mg Tablet, 325 MG PO DAILY@0800 Prescribed by: CASSY NI on 07/22/18 0807 Hydrocodone Bit/Acetaminophen 1 Tab Tab, 1 TAB PO Q4H PRN for PAIN-MODERATE Prescribed by: CASSY NI on 07/22/18 0807 Hydrocodone Bit/Acetaminophen 1 Tab Tab, 1 EACH PO Q4-6HR PRN for PAIN-MODERATE Prescribed by: MARIA G CRABTREE on 08/23/18 1227 Ibuprofen 600 Mg Tablet, 600 MG PO Q6H Prescribed by: CASSY NI on 07/22/18 0807 Ondansetron 4 Mg Tab.rapdis, 4 MG PO Q6H PRN for NAUSEA/VOMITING Prescribed by: MARIA G CRABTREE on 11/27/18 0427 Ondansetron 4 Mg Tab.rapdis, 4 MG SL Q4H PRN for NAUSEA/VOMITING Prescribed by: DONNA EWING on 07/11/19 1418 Ondansetron 8 Mg Tab.rapdis, 8 MG PO TID Prescribed by: ERIKA LEWIS on 10/16/19 1407 Ondansetron HCl 4 Mg Tab, 4 MG PO Q4H PRN for NAUSEA/VOMITING-1ST LINE Prescribed by: ERIKA LEWIS on 08/21/18 1534 Quf182/FA/Omega3/Dha/Fish Oil 1 Each Tab.chew, 2 EACH PO DAILY, (Reported) Potassium Chloride 20 Meq Packet, 20 MEQ PO BID Prescribed by: ERIKA LEWIS on 10/16/19 1408 Prochlorperazine Maleate 25 Mg Supp.rect, 25 MG RC Q6H PRN for NAUSEA/VOMITING- 1ST LINE Prescribed by: MARIA G CRABTREE on 11/27/18426 Prochlorperazine Maleate 25 Mg Supp.rect, 25 MG RC Q6H PRN for NAUSEA/VOMITING- 1ST LINE Prescribed by: MICHA FORTUNE on 12/25/18 231 Prochlorperazine Maleate 10 Mg Tablet, 10 MG PO TID PRN for NAUSEA/VOMITING Prescribed by: ERIKA LEWIS on 10/16/19 1407 Promethazine HCl 25 Mg Tablet, 25 MG PO Q6H PRN for NAUSEA/VOMITING Prescribed by: MARIA G CRABTREE on 08/21/18 1722 Promethazine HCl 25 Mg Supp.rect, 25 MG RC Q6H PRN for NAUSEA/VOMITING Prescribed by: MICHA FORTUNE on 12/25/18 231 Patient Home Medication List Home Medication List Reviewed: Yes (MARIA G CRABTREE) Review of Systems Review of Systems Constitutional: No chills, No diaphoresis EENTM: No Blurred Vision, No Double Vision Respiratory: Denies Cough, Denies Orthopnea Cardiovascular: Denies Chest Pain, Denies Lightheadedness Gastrointestinal: See HPI, Abdominal Pain; Denies Constipated, Denies Diarrhea; Nausea, Poor Fluid Intake, Vomiting Genitourinary: Denies Burning, Denies Discharge, Denies Drainage Musculoskeletal: No back pain, No joint pain Skin: No pruritus, No rash Psychiatric/Neurological: Denies Headache, Denies Numbness, Denies Paresthesia (MARIA G CRABTREE) All Other Systems Reviewed Negative Unless Noted: Yes (MARIA G CRABTREE) Past Zxtigge-Qclkdx-Tmrqyq Hx Patient Social History Alcohol Use: Denies Use Recreational Drug Use: Yes Drug of Choice: MARIJUANA Smoking Status: Current Everyday Smoker Type Used: Cigarettes 2nd Hand Smoke Exposure: Yes Recent Foreign Travel: No Contact w/Someone Who Travel: No Recent Hopitalizations: No (MARIA G CRABTREE) Immunizations Up To Date Tetanus Booster (TDap): Less than 5yrs PED Vaccines UTD: Yes Date of Pneumonia Vaccine: Nov 12, 2013 Date of Influenza Vaccine: Sep 11, 2015 (MARIA G CRABTREE) Seasonal Allergies Seasonal Allergies: No (MARIA G CRABTREE) Past Medical History Surgeries: Yes (LAPAROSCOPY-OVARIAN CYST, ENDOMETRIOSIS; EGD) Abdominal, Appendectomy, Gallbladder Respiratory: Yes Asthma, Pneumonia Currently Using CPAP: No Currently Using BIPAP: No Cardiac: No Neurological: No Reproductive Disorders: Yes (LT OVARIAN CYST) Female 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, 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 Sexually Transmitted Disease: No HIV/AIDS: No Genitourinary: No Gastrointestinal: Yes (CHRONIC ABDOMINAL PAIN, CHRONIC N/V, CANNABIS HYPERE MESIS SYNDROME) Musculoskeletal: No Endocrine: No HEENT: No Cancer: No Psychosocial: Yes Sleep Difficulties, Anxiety, Depression Integumentary: No Blood Disorders: No Adverse Reaction/Blood Tranf: No (MARIA G CRABTREE) Family Medical History Cancer GPA-DAD SIDE, Onset:Unknown Cataract GMA-DAD SIDE Dementia GPA-DAD SIDE Family history: Arthritis GPA-MOM SIDE Family history: Cardiovascular disease GMA-DAD SIDE (CAD STINTS) GMA-MOM SIDE (ENLARGED HEART DEFIBALATOR AND PACER) History of - respiratory disease GPA-DAD SIDE (EMPHYSEMA, COPD) No Family History of: AIDS Abdominal aortic aneurysm Abdominal aortic aneurysm Fidel's disease Carver's disease Alcoholism Alcoholism Alzheimer's disease Aphasia Aphasia Arthritis Asthma Cancer of colon Cancer of mouth Cardiovascular disease Cataracts Chest pain Colon cancer Completed stroke Congenital disease Congenital heart disease Congenital heart disease Congestive heart failure Coronary thrombosis Cystic fibrosis Cystic fibrosis Deafness or hearing loss Diabetes mellitus Drug abuse Dysphagia Dysphasia Family history: Allergy Family history: Alzheimer's disease Family history: Asthma Family history: Breast disease Family history: Coronary thrombosis Family history: Diabetes mellitus Family history: Gastrointestinal disease Family history: Glaucoma Family history: Hypertension Family history: Osteoporosis Family history: Thyroid disorder Fibrocystic disease of breast Gastroenteritis Glaucoma Headache Hearing loss Heart disease Hereditary disease History of - anemia History of - disorder History of drug abuse Human immunodeficiency virus (HIV) seropositivity Hypercholesterolemia Hypercholesterolemia Infertile Kidney disease Malignant neoplasm of lung Myocardial infarction Parkinson's disease Prostate cancer Psychotic disorder Seizure disorder Severe allergy Stroke Thyroid disease Tuberculosis Tuberculosis Visual disorder Visual impairment No Pertinent Family Hx (MARIA G CRABTREE) Physical Exam Vital Signs Vital Signs - First Documented 10/17/19 05:14 Temp 37.5 Pulse 96 Resp 19 B/P (MAP) 110/71 (84) Pulse Ox 99 O2 Delivery Room Air (MYNOR GUILLAUME MD) Vital Signs Capillary Refill : (MARIA G CRABTREE) Height/Weight/BMI Height: 5'1.00" Weight: 115lbs. 0oz. 52.436413nn; 20.00 BMI Method:Stated General Appearance: WD/WN, no apparent distress HEENT: PERRL/EOMI, normal ENT inspection, TMs normal, pharynx normal, other (oral mucosa is moderately dry. Full range of motion of the mandible) Neck: non-tender, full range of motion, supple, normal inspection Respiratory: lungs clear, normal breath sounds, no respiratory distress, no accessory muscle use Cardiovascular: normal peripheral pulses, regular rate, rhythm Gastrointestinal: normal bowel sounds, guarding, tenderness (all 4 quadrants), other (negative for Enriquez sign, McBurney's point tenderness or rebound tenderness, Rovsing sign, mesenteric signs, psoas sign etc.) Extremities: normal range of motion, non-tender, normal inspection, normal capillary refill Neurologic/Psychiatric: photo editor II-XII nml as tested, no motor/sensory deficits, alert, normal mood/affect, oriented x 3 Skin: normal color, warm/dry (MARIA G CRABTREE) Progress/Results/Core Measures Results/Orders Lab Results Laboratory Tests Test 10/17/19 05:30 Range/Units White Blood Count 10.1 4.3-11.0 10^3/uL Red Blood Count 4.27 L 4.35-5.85 10^6/uL Hemoglobin 12.8 11.5-16.0 G/DL Hematocrit 37 35-52 % Mean Corpuscular Volume 87 80-99 FL Mean Corpuscular Hemoglobin 30 25-34 PG Mean Corpuscular Hemoglobin Concent 35 32-36 G/DL Red Cell Distribution Width 13.9 10.0-14.5 % Platelet Count 321 130-400 10^3/uL Mean Platelet Volume 9.3 7.4-10.4 FL Neutrophils (%) (Auto) 80 H 42-75 % Lymphocytes (%) (Auto) 12 12-44 % Monocytes (%) (Auto) 7 0-12 % Eosinophils (%) (Auto) 0 0-10 % Basophils (%) (Auto) 0 0-10 % Neutrophils # (Auto) 8.2 H 1.8-7.8 X 10^3 Lymphocytes # (Auto) 1.3 1.0-4.0 X 10^3 Monocytes # (Auto) 0.7 0.0-1.0 X 10^3 Eosinophils # (Auto) 0.0 0.0-0.3 10^3/uL Basophils # (Auto) 0.0 0.0-0.1 10^3/uL Sodium Level 137 135-145 MMOL/L Potassium Level 3.1 L 3.6-5.0 MMOL/L Chloride Level 100 98-107 MMOL/L Carbon Dioxide Level 23 21-32 MMOL/L Anion Gap 14 5-14 MMOL/L Blood Urea Nitrogen 9 7-18 MG/DL Creatinine 0.60 0.60-1.30 MG/DL Estimat Glomerular Filtration Rate > 60 BUN/Creatinine Ratio 15 Glucose Level 102 70-105 MG/DL Calcium Level 9.0 8.5-10.1 MG/DL Corrected Calcium 8.6 8.5-10.1 MG/DL Magnesium Level 2.0 1.6-2.4 MG/DL Total Bilirubin 1.1 H 0.1-1.0 MG/DL Aspartate Amino Transf (AST/SGOT) 14 5-34 U/L Alanine Aminotransferase (ALT/SGPT) 17 0-55 U/L Alkaline Phosphatase 73 40-136 U/L C-Reactive Protein High Sensitivity 0.20 0.00-0.50 MG/DL Total Protein 6.8 6.4-8.2 GM/DL Albumin 4.5 3.2-4.5 GM/DL (MYNOR GUILLAUME MD) My Orders Orders - MYNOR GUILLAUME MD Ed Iv/Invasive Line Start (10/17/19 06:48) Ns Iv 500 Ml (Sodium Chloride 0.9%) (10/17/19 06:48) Haloperidol Injection (Haldol Injectio (10/17/19 07:00) (MYNOR GUILLAUME MD) Medications Given in ED Current Medications Medications Dose Ordered Sig/Dani Route Start Time Stop Time Status Last Admin Dose Admin Haloperidol Lactate 5 mg ONCE ONCE IV 10/17/19 07:00 10/17/19 07:01 DC 10/17/19 06:58 5 MG Ketorolac Tromethamine 30 mg ONCE ONCE IVP 10/17/19 05:30 10/17/19 05:31 DC 10/17/19 05:39 30 MG Lactated Ringer's 1,000 ml @ 0 mls/hr Q0M ONCE IV 10/17/19 05:19 10/17/19 05:23 DC 10/17/19 05:39 0 MLS/HR Ondansetron HCl 4 mg ONCE ONCE IVP 10/17/19 05:30 10/17/19 05:31 DC 10/17/19 05:37 4 MG Pantoprazole 40 mg ONCE ONCE IV 10/17/19 05:45 10/17/19 05:46 DC 10/17/19 05:40 40 MG Potassium Chloride 50 ml @ 50 mls/hr ONCE ONCE IV 10/17/19 06:00 10/17/19 06:59 DC 10/17/19 06:10 50 MLS/HR Promethazine HCl 25 mg ONCE ONCE IVP 10/17/19 05:30 10/17/19 05:31 DC 10/17/19 05:40 25 MG Sodium Chloride 500 ml @ 0 mls/hr Q0M ONCE IV 10/17/19 06:48 10/17/19 06:49 DC 10/17/19 06:57 0 MLS/HR (MYNOR GUILLAUME MD) Vital Signs/I&O 10/17/19 05:14 Temp 37.5 Pulse 96 Resp 19 B/P (MAP) 110/71 (84) Pulse Ox 99 O2 Delivery Room Air (MYNOR GUILLAUME MD) Progress Progress Note : Time: 05:29 Progress Note Patient does not demonstrate any rigidity or range of motion limitations to her cervical spine or jaw. She is afebrile with otherwise aseptic vital signs and a tender abdomen to palpation. We will give her some ondansetron as well as Phenergan and a bag of fluids as she does appear to be mildly dry. She has a history of chronic nausea and vomiting thought to be cyclical vomiting related to her marijuana use. We'll plan to check some labs and urine looking for signs of infection. We'll start with 30 mg Toradol. Pantoprazole 40 mg. Since there is no evidence of locked jaw or torticollis on physical exam and the patient's chief complaint is of abdominal pain nausea and vomiting we will address this instead. (MARIA G CRABTREE) Progress Note : Progress Note 0650: I assumed care of the patient from Dr. Crabtree 0600 pending improvement of symptoms and she is currently getting IV fluid as well as potassium IV. She is still complaining of pain. I have reexamined the patient and have not found any significant findings except for some discoloration on her abdomen secondary to chronic use of a heating pad. There are no blisters. I did have a long conversation with the patient regarding concerns related to substance abuse including marijuana and narcotics. She has been on Suboxone in the past for narcotic abuse but is not currently on that. She was off marijuana for a little while but has recently restarted a few weeks ago. She was seen yesterday for the same complaint of abdominal pain and sent home with prescriptions which she may or may not have filled. She thinks maybe her mother filled them. She is asking for just 1 dose of narcotics to help with her abdominal pain. We did discuss narcotic use and withdrawal and abuse. I do believe that she is suffering both narcotic and marijuana dependence and we did discuss that. I very much want to help her with her pain but I do not want to hurt her in the process. I did discuss this with her as well. We talked about different options and ultimately we will try the Haldol as that does seem to benefit her when she has the cyclic vomiting. She asked if we just try the Haldol and work. Please do a dose of narcotic. I told her no on that as well. She will get 500 more of normal saline to help with the potassium infusion. Monitor patient. 0751: Patient sleeping and she is stretched out now. No distress noted. Mother at bedside. I did talk with her about medication use as well as abuses meth and marijuana. We will use Haldol at home and She will not take Zofran at the same time and this was discussed at length with the mother who verbalize understanding. Discharged home with return precautions. Verbalize understanding instructions and agreement with plan. (MYNOR GUILLAUME MD) Departure Impression Primary Impression: Cyclical vomiting syndrome Additional Impression: Chronic abdominal pain Disposition: HOME, SELF-CARE Condition: Stable Departure-Patient Inst. Decision time for Depature: 07:53 (MYNOR GUILLAUME MD) Referrals: NO,LOCAL PHYSICIAN (PCP/Family) Primary Care Physician Patient Instructions: Chronic Pain (DC), Hypokalemia (DC), Marijuana Use and Addiction (DC), Nausea and Vomiting, Adult (DC) Add. Discharge Instructions: You should avoid narcotics. Also avoid marijuana. Take medications as directed. Do not take ondansetron (Zofran) on any day which you are taking the Haldol for the abdominal pain. Drink plenty of fluids by taking small sips frequently and eat a light diet. You may advance as tolerated. Follow up with your doctor in a few days for recheck. Return for worse pain, vomiting, weakness, breathing problems or other concerns as needed. Scripts Haloperidol (Haloperidol) 5 Mg Tablet 5 MG PO BID PRN for CRAMPS, #10 TAB 0 Refills For abdominal pain. Do not take with ondansetron. Prov: MYNOR GUILLAUME MD 10/17/19 MARIA G CRABTREE Oct 17, 2019 05:30 MYNOR GUILLAUME MD Oct 17, 2019 06:54
[2019-10-17 05:40] LABS: BASOPHILS % (AUTO) 0 % (0-10); EOSINOPHILS % (AUTO) 0 % (0-10); HEMATOCRIT 37 % (35-52); HEMOGLOBIN 12.8 G/DL (11.5-16.0); LYMPHOCYTES # (AUTO) 1.3 X 10^3 (1.0-4.0); LYMPHOCYTES % (AUTO) 12 % (12-44); MEAN CORPUSCULAR HEMOGLOBIN 30 PG (25-34); MEAN CORPUSCULAR HGB CONC 35 G/DL (32-36); MEAN CORPUSCULAR VOLUME 87 FL (80-99); MEAN PLATELET VOLUME 9.3 FL (7.4-10.4); MONOCYTES # (AUTO) 0.7 X 10^3 (0.0-1.0); MONOCYTES % (AUTO) 7 % (0-12); NEUTROPHILS # (AUTO) 8.2 X 10^3 (1.8-7.8); NEUTROPHILS % (AUTO) 80 % (42-75); PLATELET COUNT 321 10^3/uL (130-400); RED CELL DISTRIBUTION WIDTH 13.9 % (10.0-14.5); WHITE BLOOD COUNT 10.1 10^3/uL (4.3-11.0)
[2019-10-17] MEDS ORDERED: PANTOPRAZOLE 40 MG (PROTONIX) VIAL IV ONE (05:45)
[2019-10-17 05:58] LABS: ALANINE AMINOTRANSFERASE 17 U/L (0-55); ALBUMIN 4.5 GM/DL (3.2-4.5); ALKALINE PHOSPHATASE 73 U/L (40-136); BILIRUBIN,TOTAL 1.1 MG/DL (0.1-1.0); BUN/CREATININE RATIO 15; CARBON DIOXIDE 23 MMOL/L (21-32); CHLORIDE 100 MMOL/L (98-107); GFR ESTIMATED > 60; GLUCOSE 102 MG/DL (70-105); POTASSIUM 3.1 MMOL/L (3.6-5.0); SODIUM 137 MMOL/L (135-145); TOTAL PROTEIN 6.8 GM/DL (6.4-8.2)
[2019-10-17] MEDS ORDERED: POTASSIUM CL 10MEQ/50ML IVPB 50 ML IV ONE (06:00)
--- NOTE | 2019-10-17 06:30 | NUR ---
Attempted to assist pt with providing urine sample after first liter of fluid. Pt states she can't go yet.
[2019-10-17] MEDS ORDERED: NS IV 500 ML 500 ML ONE (06:46)
[2019-10-17] MEDS ORDERED: NS IV 500 ML 500 ML IV ONE (06:48)
[2019-10-17] MEDS ORDERED: HALOPERIDOL 5 MG/ML (HALDOL) AMP IV ONE (07:00)
[2019-10-17] MEDS ORDERED: HALO5TAB PO (08:02)
[2019-10-17 08:05] VITALS: BP 120/91
== END 2019-10-17 08:05 | disposition home or self-care (01) ==
LOC: EDUNIT# 05:03 → ER 05:04
DX: R11.15 Cyclical vomiting syndrome unrelated to migraine (principal); G89.29 Other chronic pain; R10.31 Right lower quadrant pain; R10.32 Left lower quadrant pain; R10.11 Right upper quadrant pain; R10.12 Left upper quadrant pain; J45.909 Unspecified asthma, uncomplicated; F41.9 Anxiety disorder, unspecified; F32.9 Major depressive disorder, single episode, unspecified; F17.210 Nicotine dependence, cigarettes, uncomplicated; Z90.49 Acquired absence of other specified parts of digestive tract; Z82.49 Family history of ischemic heart disease and other diseases of the circulatory system
CPT/HCPCS: 36415; 80053; 83735; 85025; 86141; 96361; 96374; 96375

== ENCOUNTER 2019-10-17 20:33 | Emergency (ER) | payer MEDICAID ==
[~2019-10-17] VITALS: Ht 157 cm; Wt 63.6 kg
[~2019-10-17 20:33] MED LIST changes: +HALO5TAB PO
[2019-10-17] MEDS ORDERED: BENZTROPINE 2 MG/2 ML INJ (COGENTIN) AMP IM ONE (21:00)
--- NOTE | 2019-10-17 21:02 | ED EENT ---
History of Present Illness General Chief Complaint: General Problems/Pain Stated Complaint: JAW LOCKED UP Source: family Exam Limitations: no limitations History of Present Illness Date Seen by Provider: Oct 17, 2019 Time Seen by Provider: 21:00 Initial Comments To ER by mother with reports of "jaw locked up". She was here us morning for the same.. She was here yesterday in the ER for recurrent hyperemesis cannabinoid syndrome given haloperidol. She's had haloperidol before without this effect and she has had an "lockjaw" before without having used Haldol, however she has for many years received Compazine and Phenergan to help control the hyperemesis cannabinoid/cyclic vomiting syndrome. Timing/Duration: gradual Severity: moderate Location: facial Prearrival Treatment: no prearrival treatment Associated Symptoms: denies symptoms Allergies and Home Medications Allergies Coded Allergies: No Known Drug Allergies (Unverified , 01/12/16) Home Medications Capsaicin 42.5 Gm Cream..g., 42.5 GM TP BID apply to anterior abdomen twice a day as needed for pain and vomiting. Prescribed by: ERIKA LEWIS on 10/16/19 1407 Cephalexin 500 Mg Tablet, 500 MG PO BID Prescribed by: MARIA G ROBERTSON on 08/21/18 1722 Docusate Sodium 100 Mg Capsule, 100 MG PO BID PRN for CONSTIPATION-1ST LINE Prescribed by: CASSY NI on 07/22/18 0807 Ferrous Sulfate 325 Mg Tablet, 325 MG PO DAILY@0800 Prescribed by: CASSY NI on 07/22/18 0807 Haloperidol 5 Mg Tablet, 5 MG PO BID PRN for CRAMPS For abdominal pain. Do not take with ondansetron. Prescribed by: MYNOR GUILLAUME on 10/17/19 0802 Hydrocodone Bit/Acetaminophen 1 Tab Tab, 1 TAB PO Q4H PRN for PAIN-MODERATE Prescribed by: CASSY NI on 07/22/18 0807 Hydrocodone Bit/Acetaminophen 1 Tab Tab, 1 EACH PO Q4-6HR PRN for PAIN-MODERATE Prescribed by: MARIA G ROBERTSON on 08/23/18 1227 Ibuprofen 600 Mg Tablet, 600 MG PO Q6H Prescribed by: CASSY NI on 07/22/18 0807 Ondansetron 4 Mg Tab.rapdis, 4 MG PO Q6H PRN for NAUSEA/VOMITING Prescribed by: MARIA G ROBERTSON on 11/27/18 0427 Ondansetron 4 Mg Tab.rapdis, 4 MG SL Q4H PRN for NAUSEA/VOMITING Prescribed by: DONNA EWING on 07/11/19 1418 Ondansetron 8 Mg Tab.rapdis, 8 MG PO TID Prescribed by: ERIKA LEWIS on 10/16/19 1407 Ondansetron HCl 4 Mg Tab, 4 MG PO Q4H PRN for NAUSEA/VOMITING-1ST LINE Prescribed by: ERIKA LEWIS on 08/21/18 1534 Wyq678/FA/Omega3/Dha/Fish Oil 1 Each Tab.chew, 2 EACH PO DAILY, (Reported) Potassium Chloride 20 Meq Packet, 20 MEQ PO BID Prescribed by: ERIKA LEWIS on 10/16/19 1408 Prochlorperazine Maleate 25 Mg Supp.rect, 25 MG RC Q6H PRN for NAUSEA/VOMITING- 1ST LINE Prescribed by: MARIA G ROBERTSON on 11/27/18 042 Prochlorperazine Maleate 25 Mg Supp.rect, 25 MG RC Q6H PRN for NAUSEA/VOMITING- 1ST LINE Prescribed by: MICHA FORTUNE on 12/25/18 2315 Prochlorperazine Maleate 10 Mg Tablet, 10 MG PO TID PRN for NAUSEA/VOMITING Prescribed by: ERIKA LEWIS on 10/16/19 1407 Promethazine HCl 25 Mg Tablet, 25 MG PO Q6H PRN for NAUSEA/VOMITING Prescribed by: MARIA G ROBERTSON on 08/21/18 1722 Promethazine HCl 25 Mg Supp.rect, 25 MG RC Q6H PRN for NAUSEA/VOMITING Prescribed by: MICHA FORTUNE on 12/25/18 2315 Patient Home Medication List Home Medication List Reviewed: Yes Review of Systems Review of Systems Constitutional: see HPI Eyes: No Symptoms Reported Ears: No Symptoms Reported Nose: no symptoms reported Mouth: no symptoms reported Throat: no symptoms reported Respiratory: no symptoms reported Musculoskeletal: no symptoms reported Past Cmpfrbt-Dqsrnz-Siolok Hx Patient Social History Drug of Choice: MARIJUANA Type Used: Cigarettes 2nd Hand Smoke Exposure: Yes Recent Foreign Travel: No Contact w/Someone Who Travel: No Recent Hopitalizations: No Immunizations Up To Date Tetanus Booster (TDap): Less than 5yrs PED Vaccines UTD: Yes Date of Pneumonia Vaccine: Nov 12, 2013 Date of Influenza Vaccine: Sep 11, 2015 Seasonal Allergies Seasonal Allergies: No Past Medical History Surgeries: Yes (LAPAROSCOPY-OVARIAN CYST, ENDOMETRIOSIS; EGD) Abdominal, Appendectomy, Gallbladder Respiratory: Yes Asthma, Pneumonia Currently Using CPAP: No Currently Using BIPAP: No Cardiac: No Neurological: No Reproductive Disorders: Yes (LT OVARIAN CYST) Female 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, 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 Sexually Transmitted Disease: No HIV/AIDS: No Genitourinary: No Gastrointestinal: Yes (CHRONIC ABDOMINAL PAIN, CHRONIC N/V, CANNABIS HYPEREMESIS SYNDROME) Musculoskeletal: No Endocrine: No HEENT: No Cancer: No Psychosocial: Yes Sleep Difficulties, Anxiety, Depression Integumentary: No Blood Disorders: No Adverse Reaction/Blood Tranf: No Family Medical History Cancer GPA-DAD SIDE, Onset:Unknown Cataract GMA-DAD SIDE Dementia GPA-DAD SIDE Family history: Arthritis GPA-MOM SIDE Family history: Cardiovascular disease GMA-DAD SIDE (CAD STINTS) GMA-MOM SIDE (ENLARGED HEART DEFIBALATOR AND PACER) History of - respiratory disease GPA-DAD SIDE (EMPHYSEMA, COPD) No Family History of: AIDS Abdominal aortic aneurysm Abdominal aortic aneurysm [place]'s disease [place]'s disease Alcoholism Alcoholism Alzheimer's disease Aphasia Aphasia Arthritis Asthma Cancer of colon Cancer of mouth Cardiovascular disease Cataracts Chest pain Colon cancer Completed stroke Congenital disease Congenital heart disease Congenital heart disease Congestive heart failure Coronary thrombosis Cystic fibrosis Cystic fibrosis Deafness or hearing loss Diabetes mellitus Drug abuse Dysphagia Dysphasia Family history: Allergy Family history: Alzheimer's disease Family history: Asthma Family history: Breast disease Family history: Coronary thrombosis Family history: Diabetes mellitus Family history: Gastrointestinal disease Family history: Glaucoma Family history: Hypertension Family history: Osteoporosis Family history: Thyroid disorder Fibrocystic disease of breast Gastroenteritis Glaucoma Headache Hearing loss Heart disease Hereditary disease History of - anemia History of - disorder History of drug abuse Human immunodeficiency virus (HIV) seropositivity Hypercholesterolemia Hypercholesterolemia Infertile Kidney disease Malignant neoplasm of lung Myocardial infarction Parkinson's disease Prostate cancer Psychotic disorder Seizure disorder Severe allergy Stroke Thyroid disease Tuberculosis Tuberculosis Visual disorder Visual impairment No Pertinent Family Hx Physical Exam Height, Weight, BMI Height: 5'1.00" Weight: 115lbs. 0oz. 52.132234sp; 21.00 BMI Method:Stated General Appearance: WD/WN, no apparent distress Eyes: bilateral eye normal inspection, bilateral eye PERRL, bilateral eye EOMI Ears: bilateral ear auricle normal, bilateral ear canal normal, bilateral ear TM normal Mouth/Throat: normal mouth inspection, pharynx normal, other (keeps her mouth closed and her lips pursed) Neck: non-tender, full range of motion Respiratory: no respiratory distress, no accessory muscle use Gastrointestinal: non tender, soft Neurologic/Psychiatric: alert, normal mood/affect, oriented x 3 Skin: normal color, warm/dry Progress/Results/Core Measures Results/Orders My Orders Orders - ERIKA LEWIS APRN Benztropine Injection (Cogentin Injectio (10/17/19 21:00) Medications Given in ED Current Medications Medications Dose Ordered Sig/Dani Route Start Time Stop Time Status Last Admin Dose Admin Benztropine Mesylate 2 mg ONCE ONCE IM 10/17/19 21:00 10/17/19 21:01 DC 10/17/19 21:08 2 MG Departure Communication (Admissions) RN reports that as soon as she gave the injection the patient asked "can I go now, she is now apparently able to speak before the Cogentin has had time to be effective. Impression Primary Impression: Dystonia Disposition: 01 HOME, SELF-CARE Condition: Improved Departure-Patient Inst. Decision time for Depature: 21:03 Referrals: NO,LOCAL PHYSICIAN (PCP/Family) Primary Care Physician Patient Instructions: Dystonia ERIKA LEWIS APRN Oct 17, 2019 21:02
[2019-10-17 21:19] VITALS: BP 113/80
== END 2019-10-17 21:19 | disposition home or self-care (01) ==
LOC: EDUNIT# 20:33 → ER 20:34
DX: G24.9 Dystonia, unspecified (principal); J45.909 Unspecified asthma, uncomplicated; F41.9 Anxiety disorder, unspecified; F32.9 Major depressive disorder, single episode, unspecified; Z77.22 Contact with and (suspected) exposure to environmental tobacco smoke (acute) (chronic); Z90.49 Acquired absence of other specified parts of digestive tract; Z82.49 Family history of ischemic heart disease and other diseases of the circulatory system
CPT/HCPCS: 96372; 99284

== ENCOUNTER 2019-11-11 06:45 | Emergency (ER) | payer MEDICAID ==
[~2019-11-11 06:45] MED LIST changes: +OMEP-280 PO; -OMEP20CA13 PO
== END 2019-11-11 07:05 | disposition left against medical advice (07) ==
LOC: EDUNIT# 06:45 → ER 06:49
DX: R11.2 Nausea with vomiting, unspecified (principal); R10.9 Unspecified abdominal pain

== ENCOUNTER 2019-11-22 12:37 | Emergency (ER) | payer MEDICAID ==
[~2019-11-22] VITALS: Ht 155 cm; Wt 50.0 kg
--- NOTE | 2019-11-22 12:53 | ED Abdominal Pain ---
General Stated Complaint: LOWER ABD PAIN Source of Information: Patient Exam Limitations: No Limitations History of Present Illness Date Seen by Provider: Nov 22, 2019 Time Seen by Provider: 12:52 Initial Comments To ER by private vehicle from home with reports of suprapubic abdominal pain sharp in nature started this morning. She denies fevers or chills, she does have nausea without vomiting no dysuria no vaginal discharge. Last bowel movement yesterday and was normal. States that she's been off of opiates for 15 days and she does not want any opiate medication. She does note that she had an abnormal episode of vaginal bleeding about 2 weeks ago, this was a bit early for her menstrual period She felt. Timing/Duration: 4-6 Hours Severity/Quality: Severe Location: Suprapubic Radiation: No Radiation Activities at Onset: None Allergies and Home Medications Allergies Coded Allergies: No Known Drug Allergies (Unverified , 01/12/16) Home Medications Capsaicin 42.5 Gm Cream..g., 42.5 GM TP BID apply to anterior abdomen twice a day as needed for pain and vomiting. Prescribed by: ERIKA LEWIS on 10/16/19 1407 Cephalexin 500 Mg Tablet, 500 MG PO BID Prescribed by: MARIA G ROBERTSON on 08/21/18 1722 Docusate Sodium 100 Mg Capsule, 100 MG PO BID PRN for CONSTIPATION-1ST LINE Prescribed by: CASSY NI on 07/22/18 0807 Ferrous Sulfate 325 Mg Tablet, 325 MG PO DAILY@0800 Prescribed by: CASSY NI on 07/22/18 0807 Fluconazole 150 Mg Tablet, 150 MG PO DAILY Prescribed by: ERIKA LEWIS on 11/22/19 1447 Haloperidol 5 Mg Tablet, 5 MG PO BID PRN for CRAMPS For abdominal pain. Do not take with ondansetron. Prescribed by: MYNOR GUILLAUME on 10/17/19 0802 Hydrocodone Bit/Acetaminophen 1 Tab Tab, 1 TAB PO Q4H PRN for PAIN-MODERATE Prescribed by: CASSY NI on 07/22/18 0807 Hydrocodone Bit/Acetaminophen 1 Tab Tab, 1 EACH PO Q4-6HR PRN for PAIN-MODERATE Prescribed by: MARIA G ROBERTSON on 08/23/18 1227 Ibuprofen 600 Mg Tablet, 600 MG PO Q6H Prescribed by: CASSY NI on 10/11/18 0807 Naproxen 500 Mg Tablet, 500 MG PO BID Prescribed by: ERIKA LEWIS on 11/22/19 1450 Ondansetron 4 Mg Tab.rapdis, 4 MG PO Q6H PRN for NAUSEA/VOMITING Prescribed by: MARIA G ROBERTSON on 11/27/18 0427 Ondansetron 4 Mg Tab.rapdis, 4 MG SL Q4H PRN for NAUSEA/VOMITING Prescribed by: DONNA EWING on 07/11/19 1418 Ondansetron 8 Mg Tab.rapdis, 8 MG PO TID Prescribed by: ERIKA LEWIS on 10/16/19 1407 Ondansetron HCl 4 Mg Tab, 4 MG PO Q4H PRN for NAUSEA/VOMITING-1ST LINE Prescribed by: ERIKA LEWIS on 08/21/18 1534 Ioc596/FA/Omega3/Dha/Fish Oil 1 Each Tab.chew, 2 EACH PO DAILY, (Reported) Potassium Chloride 20 Meq Packet, 20 MEQ PO BID Prescribed by: ERIKA LEWIS on 10/16/19 1408 Prochlorperazine Maleate 25 Mg Supp.rect, 25 MG RC Q6H PRN for NAUSEA/VOMITING- 1ST LINE Prescribed by: MARIA G ROBERTSON on 11/27/18 042 Prochlorperazine Maleate 25 Mg Supp.rect, 25 MG RC Q6H PRN for NAUSEA/VOMITING- 1ST LINE Prescribed by: MICHA FORTUNE on 12/25/18 231 Prochlorperazine Maleate 10 Mg Tablet, 10 MG PO TID PRN for NAUSEA/VOMITING Prescribed by: ERIKA LEWIS on 10/16/19 1407 Promethazine HCl 25 Mg Tablet, 25 MG PO Q6H PRN for NAUSEA/VOMITING Prescribed by: MARIA G ROBERTSON on 08/21/18 1722 Promethazine HCl 25 Mg Supp.rect, 25 MG RC Q6H PRN for NAUSEA/VOMITING Prescribed by: MICHA FORTUNE on 12/25/18 231 Patient Home Medication List Home Medication List Reviewed: Yes Review of Systems Review of Systems Constitutional: see HPI EENTM: No Symptoms Reported Respiratory: No Symptoms Reported Cardiovascular: No Symptoms Reported Gastrointestinal: See HPI, Abdominal Pain Genitourinary: No Symptoms Reported Musculoskeletal: no symptoms reported Skin: no symptoms reported Psychiatric/Neurological: No Symptoms Reported Endocrine: No Symptoms Reported Hematologic/Lymphatic: No Symptoms Reported Past Pauqugi-Dyajxj-Hokyjc Hx Patient Social History Drug of Choice: MARIJUANA Type Used: Cigarettes 2nd Hand Smoke Exposure: Yes Recent Foreign Travel: No Contact w/Someone Who Travel: No Recent Hopitalizations: No Immunizations Up To Date Tetanus Booster (TDap): Less than 5yrs PED Vaccines UTD: Yes Date of Pneumonia Vaccine: Nov 12, 2013 Date of Influenza Vaccine: Sep 11, 2015 Seasonal Allergies Seasonal Allergies: No Past Medical History Surgeries: Yes (LAPAROSCOPY-OVARIAN CYST, ENDOMETRIOSIS; EGD) Abdominal, Appendectomy, Gallbladder Respiratory: Yes Asthma, Pneumonia Currently Using CPAP: No Currently Using BIPAP: No Cardiac: No Neurological: No Reproductive Disorders: Yes (LT OVARIAN CYST) Female 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, Ovarian 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 Sexually Transmitted Disease: No HIV/AIDS: No Genitourinary: No Gastrointestinal: Yes (CHRONIC ABDOMINAL PAIN, CHRONIC N/V, 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) Musculoskeletal: No Endocrine: No HEENT: No Cancer: No Psychosocial: Yes Sleep Difficulties, Anxiety, Depression Integumentary: No Blood Disorders: No Adverse Reaction/Blood Tranf: No Family Medical History Cancer GPA-DAD SIDE, Onset:Unknown Cataract GMA-DAD SIDE Dementia GPA-DAD SIDE Family history: Arthritis GPA-MOM SIDE Family history: Cardiovascular disease GMA-DAD SIDE (CAD STINTS) GMA-MOM SIDE (ENLARGED HEART DEFIBALATOR AND PACER) History of - respiratory disease GPA-DAD SIDE (EMPHYSEMA, COPD) No Family History of: AIDS Abdominal aortic aneurysm Abdominal aortic aneurysm Metcalfe's disease Fidel's disease Alcoholism Alcoholism Alzheimer's disease Aphasia Aphasia Arthritis Asthma Cancer of colon Cancer of mouth Cardiovascular disease Cataracts Chest pain Colon cancer Completed stroke Congenital disease Congenital heart disease Congenital heart disease Congestive heart failure Coronary thrombosis Cystic fibrosis Cystic fibrosis Deafness or hearing loss Diabetes mellitus Drug abuse Dysphagia Dysphasia Family history: Allergy Family history: Alzheimer's disease Family history: Asthma Family history: Breast disease Family history: Coronary thrombosis Family history: Diabetes mellitus Family history: Gastrointestinal disease Family history: Glaucoma Family history: Hypertension Family history: Osteoporosis Family history: Thyroid disorder Fibrocystic disease of breast Gastroenteritis Glaucoma Headache Hearing loss Heart disease Hereditary disease History of - anemia History of - disorder History of drug abuse Human immunodeficiency virus (HIV) seropositivity Hypercholesterolemia Hypercholesterolemia Infertile Kidney disease Malignant neoplasm of lung Myocardial infarction Parkinson's disease Prostate cancer Psychotic disorder Seizure disorder Severe allergy Stroke Thyroid disease Tuberculosis Tuberculosis Visual disorder Visual impairment No Pertinent Family Hx Physical Exam Vital Signs Vital Signs - First Documented 11/22/19 12:44 Temp 36.7 Pulse 116 Resp 17 B/P (MAP) 136/103 (114) Pulse Ox 97 O2 Delivery Room Air Capillary Refill : Height/Weight/BMI Height: 5'1.00" Weight: 115lbs. 0oz. 52.525589ek; 25.00 BMI Method:Stated General Appearance: WD/WN, no apparent distress, other (no distress, walking, smiling, this is an unusual presentation for her. She's very pleasant today.) HEENT: PERRL/EOMI, normal ENT inspection Respiratory: no respiratory distress, no accessory muscle use Gastrointestinal: normal bowel sounds, soft, tenderness Neurologic/Psychiatric: alert, normal mood/affect, oriented x 3 Skin: normal color, warm/dry Progress/Results/Core Measures Results/Orders Lab Results Laboratory Tests Test 11/22/19 12:50 11/22/19 12:54 Range/Units White Blood Count 9.0 4.3-11.0 10^3/uL Red Blood Count 4.37 4.35-5.85 10^6/uL Hemoglobin 13.2 11.5-16.0 G/DL Hematocrit 39 35-52 % Mean Corpuscular Volume 90 80-99 FL Mean Corpuscular Hemoglobin 30 25-34 PG Mean Corpuscular Hemoglobin Concent 34 32-36 G/DL Red Cell Distribution Width 13.1 10.0-14.5 % Platelet Count 448 H 130-400 10^3/uL Mean Platelet Volume 9.2 7.4-10.4 FL Neutrophils (%) (Auto) 68 42-75 % Lymphocytes (%) (Auto) 26 12-44 % Monocytes (%) (Auto) 5 0-12 % Eosinophils (%) (Auto) 1 0-10 % Basophils (%) (Auto) 0 0-10 % Neutrophils # (Auto) 6.1 1.8-7.8 X 10^3 Lymphocytes # (Auto) 2.3 1.0-4.0 X 10^3 Monocytes # (Auto) 0.5 0.0-1.0 X 10^3 Eosinophils # (Auto) 0.1 0.0-0.3 10^3/uL Basophils # (Auto) 0.0 0.0-0.1 10^3/uL Sodium Level 138 135-145 MMOL/L Potassium Level 3.6 3.6-5.0 MMOL/L Chloride Level 109 H 98-107 MMOL/L Carbon Dioxide Level 21 21-32 MMOL/L Anion Gap 8 5-14 MMOL/L Blood Urea Nitrogen 9 7-18 MG/DL Creatinine 0.65 0.60-1.30 MG/DL Estimat Glomerular Filtration Rate > 60 BUN/Creatinine Ratio 14 Glucose Level 93 70-105 MG/DL Calcium Level 9.0 8.5-10.1 MG/DL Corrected Calcium 8.8 8.5-10.1 MG/DL Total Bilirubin 0.4 0.1-1.0 MG/DL Aspartate Amino Transf (AST/SGOT) 13 5-34 U/L Alanine Aminotransferase (ALT/SGPT) 11 0-55 U/L Alkaline Phosphatase 71 40-136 U/L Total Protein 7.0 6.4-8.2 GM/DL Albumin 4.3 3.2-4.5 GM/DL Urine Color YELLOW Urine Clarity CLEAR Urine pH 5.5 5-9 Urine Specific [place] >=1.030 1.016-1.022 Urine Protein NEGATIVE NEGATIVE Urine Glucose (UA) NEGATIVE NEGATIVE Urine Ketones NEGATIVE NEGATIVE Urine Nitrite NEGATIVE NEGATIVE Urine Bilirubin NEGATIVE NEGATIVE Urine Urobilinogen 0.2 < = 1.0 MG/DL Urine Leukocyte Esterase NEGATIVE NEGATIVE Urine RBC (Auto) NEGATIVE NEGATIVE Urine RBC NONE /HPF Urine WBC NONE /HPF Urine Squamous Epithelial Cells 10-25 H /HPF Urine Crystals NONE /LPF Urine Bacteria NEGATIVE /HPF Urine Casts NONE /LPF Urine Mucus MODERATE H /LPF Urine Culture Indicated NO Urine Test NEGATIVE NEGATIVE Urine Opiates Screen NEGATIVE NEGATIVE Urine Oxycodone Screen NEGATIVE NEGATIVE Urine Methadone Screen NEGATIVE NEGATIVE Urine Propoxyphene Screen NEGATIVE NEGATIVE Urine Barbiturates Screen NEGATIVE NEGATIVE Ur Tricyclic Antidepressants Screen NEGATIVE NEGATIVE Urine Phencyclidine Screen NEGATIVE NEGATIVE Urine Amphetamines Screen NEGATIVE NEGATIVE Urine Methamphetamines Screen NEGATIVE NEGATIVE Urine Benzodiazepines Screen NEGATIVE NEGATIVE Urine Cocaine Screen NEGATIVE NEGATIVE Urine Cannabinoids Screen POSITIVE H NEGATIVE Micro Results Microbiology 11/22/19 Genital Culture, Resulted Pending 11/22/19 Wet Prep - Final, Resulted My Orders Orders - ERIKA LEWIS APRN Cbc With Automated Diff (11/22/19 12:40) Comprehensive Metabolic Panel (11/22/19 12:40) Ua Culture If Indicated (11/22/19 12:40) Drug Screen Stat (Urine) (11/22/19 12:40) Hcg,Qualitative Urine (11/22/19 12:40) Ed Iv/Invasive Line Start (11/22/19 12:40) Ketorolac Injection (Toradol Injection) (11/22/19 13:00) Ondansetron Injection (Zofran Injectio (11/22/19 13:00) Us Non Ob Transvaginal [id number] (11/22/19 12:51) Wet Prep (11/22/19 14:17) Genital Culture (11/22/19 14:17) Neisseria Gonorrhea Swab (11/22/19 14:17) Chlamydia Trachomatis Swab (11/22/19 14:17) Medications Given in ED Current Medications Medications Dose Ordered Sig/Dani Route Start Time Stop Time Status Last Admin Dose Admin Ketorolac Tromethamine 15 mg ONCE ONCE IVP 11/22/19 13:00 11/22/19 13:01 DC 11/22/19 13:05 15 MG Ondansetron HCl 4 mg ONCE ONCE IVP 11/22/19 13:00 11/22/19 13:01 DC 11/22/19 13:05 4 MG Vital Signs/I&O 11/22/19 12:44 Temp 36.7 Pulse 116 Resp 17 B/P (MAP) 136/103 (114) Pulse Ox 97 O2 Delivery Room Air Diagnostic Imaging Diagonstic Imaging: Ultrasound Comments NAME: LAZARA MATHIS [facility] REC#: [id number] PT STATUS: REG ER : 1995 PHYSICIAN: ERIKA LEWIS APRN ADMIT DATE: 11/22/19/ER Draft Date of Exam:11/22/19 US NON OB TRANSVAGINAL [id number] PROCEDURE: US NONOB transvaginal. TECHNIQUE: Multiple real-time grayscale images were obtained of the pelvis in various projections endovaginally. INDICATION: Pelvic pain. FINDINGS: Uterus is anteverted and measures 7.3 x 3.9 x 4.6 cm. Endometrial thickness is 3 mm. IUD is in satisfactory position. There are no discrete myometrial or endometrial masses. Both ovaries are normal in size and morphology and demonstrate normal blood flow. There is a 1.6 cm cyst in the right ovary. IMPRESSION: The IUD is in satisfactory position. 1.6 cm right ovarian cyst. Dictated on workstation # [id number] Dict: 11/22/19 1405 Trans: 11/22/191405 [facility] [id number] Interpreted by: KHADIJAH JOHNSON MD Electronically signed by: Departure Impression Primary Impression: Lower abdominal pain Disposition: HOME, SELF-CARE Condition: Stable Departure-Patient Inst. Decision time for Depature: 13:45 Referrals: CASSY NI DENNIS G MD NO,LOCAL PHYSICIAN (PCP) Primary Care Physician GRIFFIN MARTIN DO Patient Instructions: NO INSTRUCTIONS GIVEN Add. Discharge Instructions: 1. Follow-up with one of the gynecologists listed for their recommendations and further workup of your lower abdominal pain which may or may not be related to the IUD. CONGRATULATIONS ON BEING CLEAN FROM OPIATES!!!!! KEEP IT UP!!! Scripts Ondansetron (Ondansetron Odt) 8 Mg Tab.rapdis 8 MG PO Q6H PRN for NAUSEA/VOMITING, #10 TAB Prov: ERIKA LEWIS APRN 11/22/19 Naproxen (Naprosyn) 500 Mg Tablet 500 MG PO BID, #30 TAB 0 Refills Prov: ERIKA LEWIS APRN 11/22/19 Fluconazole (Diflucan) 150 Mg Tablet 150 MG PO DAILY, #2 TAB Prov: ERIKA LEWIS APRN 11/22/19 ERIKA LEWIS APRN Nov 22, 2019 12:53
[2019-11-22 13:00] LABS: BILIRUBIN,URINE NEGATIVE (NEGATIVE); CLARITY,URINE CLEAR; COLOR,URINE YELLOW; GLUCOSE, URINE (UA) NEGATIVE (NEGATIVE); KETONES,URINE NEGATIVE (NEGATIVE); LEUKOCYTE ESTERASE ,URINE NEGATIVE (NEGATIVE); NITRITE,URINE NEGATIVE (NEGATIVE); PH,URINE 5.5 (5-9); PROTEIN,URINE NEGATIVE (NEGATIVE)
[2019-11-22 13:00] LABS: BASOPHILS % (AUTO) 0 % (0-10); EOSINOPHILS # (AUTO) 0.1 10^3/uL (0.0-0.3); EOSINOPHILS % (AUTO) 1 % (0-10); HEMATOCRIT 39 % (35-52); HEMOGLOBIN 13.2 G/DL (11.5-16.0); LYMPHOCYTES # (AUTO) 2.3 X 10^3 (1.0-4.0); LYMPHOCYTES % (AUTO) 26 % (12-44); MEAN CORPUSCULAR HEMOGLOBIN 30 PG (25-34); MEAN CORPUSCULAR HGB CONC 34 G/DL (32-36); MEAN CORPUSCULAR VOLUME 90 FL (80-99); MEAN PLATELET VOLUME 9.2 FL (7.4-10.4); MONOCYTES # (AUTO) 0.5 X 10^3 (0.0-1.0); MONOCYTES % (AUTO) 5 % (0-12); NEUTROPHILS # (AUTO) 6.1 X 10^3 (1.8-7.8); NEUTROPHILS % (AUTO) 68 % (42-75); PLATELET COUNT 448 10^3/uL (130-400); RED CELL DISTRIBUTION WIDTH 13.1 % (10.0-14.5)
[2019-11-22] MEDS ORDERED: ONDANSETRON 4 MG/2 ML (SDV) Z0FRAN IVP ONE (13:00)
[2019-11-22] MEDS ORDERED: KETOROLAC 30 MG/ML VIAL IVP ONE (13:00)
[2019-11-22 13:16] LABS: BACTERIA,URINE NEGATIVE /HPF
[2019-11-22 13:17] LABS: HCG,QUALITATIVE URINE NEGATIVE (NEGATIVE)
[2019-11-22 13:22] LABS: AMPHETAMINE SCREEN, URINE NEGATIVE (NEGATIVE); BENZODIAZEPINES SCREEN URINE NEGATIVE (NEGATIVE); COCAINE SCREEN URINE NEGATIVE (NEGATIVE); METHAMPHETAMINE SCREEN URINE S NEGATIVE (NEGATIVE)
[2019-11-22 13:23] LABS: BARBITURATE SCREEN URINE NEGATIVE (NEGATIVE); CANNABINOID SCREEN, URINE POSITIVE (NEGATIVE); METHADONE STAT NEGATIVE (NEGATIVE); OPIATE SCREEN URINE NEGATIVE (NEGATIVE); OXYCODONE STAT NEGATIVE (NEGATIVE); PROPOXYPHENE STAT NEGATIVE (NEGATIVE); TRICYCLIC ANTIDEPRESSANTS SCRE NEGATIVE (NEGATIVE)
[2019-11-22 13:26] LABS: ALANINE AMINOTRANSFERASE 11 U/L (0-55); ALBUMIN 4.3 GM/DL (3.2-4.5); ALKALINE PHOSPHATASE 71 U/L (40-136); BILIRUBIN,TOTAL 0.4 MG/DL (0.1-1.0); BUN/CREATININE RATIO 14; CARBON DIOXIDE 21 MMOL/L (21-32); CHLORIDE 109 MMOL/L (98-107); CREATININE SERUM 0.65 MG/DL (0.60-1.30); GFR ESTIMATED > 60; GLUCOSE 93 MG/DL (70-105); POTASSIUM 3.6 MMOL/L (3.6-5.0); SODIUM 138 MMOL/L (135-145)
--- NOTE | 2019-11-22 14:06 | Diagnostic Imaging Report ---
PROCEDURE: US NONOB transvaginal. TECHNIQUE: Multiple real-time grayscale images were obtained of the pelvis in various projections endovaginally. INDICATION: Pelvic pain. FINDINGS: Uterus is anteverted and measures 7.3 x 3.9 x 4.6 cm. Endometrial thickness is 3 mm. IUD is in satisfactory position. There are no discrete myometrial or endometrial masses. Both ovaries are normal in size and morphology and demonstrate normal blood flow. There is a 1.6 cm cyst in the right ovary. IMPRESSION: The IUD is in satisfactory position. 1.6 cm right ovarian cyst. Dictated by: Dictated on workstation # [id number]
[2019-11-22] MEDS ORDERED: FLUC150T PO (14:47)
[2019-11-22] MEDS ORDERED: NAPR-1071 PO (14:50)
[2019-11-22 15:00] VITALS: BP 114/84
[2019-11-22] MEDS ORDERED: ONDA8TAB13 PO (15:03)
== END 2019-11-22 15:00 | disposition home or self-care (01) ==
LOC: EDUNIT# 12:37 → ER 12:38
DX: R10.30 Lower abdominal pain, unspecified (principal); Z82.49 Family history of ischemic heart disease and other diseases of the circulatory system
CPT/HCPCS: 36415; 76830; 80053; 80306; 81000; 84703; 85025; 87070; 87205; 87210; 87491; 87591; 96374; 96375

== ENCOUNTER 2019-11-24 10:28 | Emergency (ER) | payer MEDICAID ==
[~2019-11-24] VITALS: Ht 154 cm; Wt 50.0 kg
[~2019-11-24 10:28] MED LIST changes: +FLUC150T PO; +NAPR-1071 PO
[2019-11-24] MEDS ORDERED: KETAMINE/NaCl 50 MG/5 ML SYRINGE (ED ONLY) IV ONE (10:30)
[2019-11-24] MEDS ORDERED: NS (IVPB) 250 ML IV ONE (10:30)
[2019-11-24] MEDS ORDERED: ONDANSETRON 4 MG/2 ML (SDV) Z0FRAN IVP ONE (10:30)
--- NOTE | 2019-11-24 10:40 | ED Abdominal Pain ---
General Chief Complaint: Abdominal/GI Problems Stated Complaint: PELVIC PAIN Nursing Triage Note: ARRIVED [facility]IA [facility] FROM HOME. COMPLAINS OF ONGOING PELVIC PAIN THAT SHE WAS JUST SEEN HERE BEFORE. PT STATES SHE HAS BEEN CLEAN X16 DAYS. Sepsis Screen: No Definite Risk Source of Information: Patient Exam Limitations: No Limitations History of Present Illness Date Seen by Provider: Nov 24, 2019 Time Seen by Provider: 10:37 Initial Comments R home from EMS with reports of abdominal pain ongoing for a few days, seen here recently and had an ultrasound showing a right ovarian cyst 1.6 cm, she reports a history of endometriosis. She is known to us for frequent presentations for chronic abdominal pain and opiate abuse/hyperemesis cannabinoids syndrome. She has been clean from opiates for 16 days following treatment in [place]. She's afraid this pain will cause her to relapse. Timing/Duration: 3-4 Days Severity/Quality: Moderate Location: Suprapubic Radiation: No Radiation Activities at Onset: None Associated Symptoms: Denies Symptoms Allergies and Home Medications Allergies Coded Allergies: No Known Drug Allergies (Unverified , 01/12/16) Home Medications Capsaicin 42.5 Gm Cream..g., 42.5 GM TP BID apply to anterior abdomen twice a day as needed for pain and vomiting. Prescribed by: ERIKA LEWIS on 10/16/19 1407 Cephalexin 500 Mg Tablet, 500 MG PO BID Prescribed by: MARIA G ROBERTSON on 08/21/18 1722 Docusate Sodium 100 Mg Capsule, 100 MG PO BID PRN for CONSTIPATION-1ST LINE Prescribed by: CASSY NI on 07/22/18 0807 Ferrous Sulfate 325 Mg Tablet, 325 MG PO DAILY@0800 Prescribed by: CASSY NI on 07/22/18 0807 Fluconazole 150 Mg Tablet, 150 MG PO DAILY Prescribed by: ERIKA LEWIS on 11/22/19 1447 Haloperidol 5 Mg Tablet, 5 MG PO BID PRN for CRAMPS For abdominal pain. Do not take with ondansetron. Prescribed by: MYNOR GUILLAUME on 10/17/19 0802 Hydrocodone Bit/Acetaminophen 1 Tab Tab, 1 TAB PO Q4H PRN for PAIN-MODERATE Prescribed by: CASSY NI on 07/22/18 0807 Hydrocodone Bit/Acetaminophen 1 Tab Tab, 1 EACH PO Q4-6HR PRN for PAIN-MODERATE Prescribed by: MARIA G ROBERTSON on 08/23/18 1227 Ibuprofen 600 Mg Tablet, 600 MG PO Q6H Prescribed by: CASSY NI on 07/22/18 0807 Naproxen 500 Mg Tablet, 500 MG PO BID Prescribed by: ERIKA LEWIS on 11/22/19 1450 Ondansetron 4 Mg Tab.rapdis, 4 MG PO Q6H PRN for NAUSEA/VOMITING Prescribed by: MARIA G ROBERTSON on 11/27/18 0427 Ondansetron 4 Mg Tab.rapdis, 4 MG SL Q4H PRN for NAUSEA/VOMITING Prescribed by: DONNA EWING on 07/11/19 1418 Ondansetron 8 Mg Tab.rapdis, 8 MG PO TID Prescribed by: ERIKA LEWIS on 10/16/19 1407 Ondansetron 8 Mg Tab.rapdis, 8 MG PO Q6H PRN for NAUSEA/VOMITING Prescribed by: ERIKA LEWIS on 11/22/19 1503 Ondansetron HCl 4 Mg Tab, 4 MG PO Q4H PRN for NAUSEA/VOMITING-1ST LINE Prescribed by: ERIKA LEWIS on 08/21/18 1534 Dsy634/FA/Omega3/Dha/Fish Oil 1 Each Tab.chew, 2 EACH PO DAILY, (Reported) Potassium Chloride 20 Meq Packet, 20 MEQ PO BID Prescribed by: ERIKA LEWIS on 10/16/19 1408 Prochlorperazine Maleate 25 Mg Supp.rect, 25 MG RC Q6H PRN for NAUSEA/VOMITING- 1ST LINE Prescribed by: MARIA G ROBERTSON on 11/27/18 0427 Prochlorperazine Maleate 25 Mg Supp.rect, 25 MG RC Q6H PRN for NAUSEA/VOMITING- 1ST LINE Prescribed by: MICHA FORTUNE on 12/25/18 2315 Prochlorperazine Maleate 10 Mg Tablet, 10 MG PO TID PRN for NAUSEA/VOMITING Prescribed by: ERIKA LEWIS on 10/16/19 1407 Promethazine HCl 25 Mg Tablet, 25 MG PO Q6H PRN for NAUSEA/VOMITING Prescribed by: MARIA G ROBERTSON on 08/21/18 1722 Promethazine HCl 25 Mg Supp.rect, 25 MG RC Q6H PRN for NAUSEA/VOMITING Prescribed by: MICHA FORTUNE on 12/25/18 2315 Patient Home Medication List Home Medication List Reviewed: Yes Review of Systems Review of Systems Constitutional: see HPI EENTM: No Symptoms Reported Respiratory: No Symptoms Reported Cardiovascular: No Symptoms Reported Gastrointestinal: See HPI, Abdominal Pain Genitourinary: No Symptoms Reported Musculoskeletal: no symptoms reported Skin: no symptoms reported Psychiatric/Neurological: No Symptoms Reported Endocrine: No Symptoms Reported Past Jwzvmif-Bjzobh-Kitmsn Hx Patient Social History Drug of Choice: MARIJUANA Type Used: Cigarettes 2nd Hand Smoke Exposure: Yes Recent Foreign Travel: No Contact w/Someone Who Travel: No Recent Infectious Disease Expo: No Recent Hopitalizations: No Immunizations Up To Date Tetanus Booster (TDap): Less than 5yrs PED Vaccines UTD: Yes Date of Pneumonia Vaccine: Nov 12, 2013 Date of Influenza Vaccine: Sep 11, 2015 Seasonal Allergies Seasonal Allergies: No Past Medical History Surgeries: Yes (LAPAROSCOPY-OVARIAN CYST, ENDOMETRIOSIS; EGD) Abdominal, Appendectomy, Gallbladder Respiratory: Yes Asthma, Pneumonia Currently Using CPAP: No Currently Using BIPAP: No Cardiac: No Neurological: No Reproductive Disorders: Yes (LT OVARIAN CYST) Female 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, 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 Sexually Transmitted Disease: No HIV/AIDS: No Genitourinary: No Gastrointestinal: Yes (CHRONIC ABDOMINAL PAIN, CHRONIC N/V, CANNABIS HYPEREMESIS SYNDROME) Musculoskeletal: No Endocrine: No HEENT: No Cancer: No Psychosocial: Yes Sleep Difficulties, Anxiety, Depression Integumentary: No Blood Disorders: No Adverse Reaction/Blood Tranf: No Family Medical History Cancer GPA-DAD SIDE, Onset:Unknown Cataract GMA-DAD SIDE Dementia GPA-DAD SIDE Family history: Arthritis GPA-MOM SIDE Family history: Cardiovascular disease GMA-DAD SIDE (CAD STINTS) GMA-MOM SIDE (ENLARGED HEART DEFIBALATOR AND PACER) History of - respiratory disease GPA-DAD SIDE (EMPHYSEMA, COPD) No Family History of: AIDS Abdominal aortic aneurysm Abdominal aortic aneurysm Collin's disease Fidel's disease Alcoholism Alcoholism Alzheimer's disease Aphasia Aphasia Arthritis Asthma Cancer of colon Cancer of mouth Cardiovascular disease Cataracts Chest pain Colon cancer Completed stroke Congenital disease Congenital heart disease Congenital heart disease Congestive heart failure Coronary thrombosis Cystic fibrosis Cystic fibrosis Deafness or hearing loss Diabetes mellitus Drug abuse Dysphagia Dysphasia Family history: Allergy Family history: Alzheimer's disease Family history: Asthma Family history: Breast disease Family history: Coronary thrombosis Family history: Diabetes mellitus Family history: Gastrointestinal disease Family history: Glaucoma Family history: Hypertension Family history: Osteoporosis Family history: Thyroid disorder Fibrocystic disease of breast Gastroenteritis Glaucoma Headache Hearing loss Heart disease Hereditary disease History of - anemia History of - disorder History of drug abuse Human immunodeficiency virus (HIV) seropositivity Hypercholesterolemia Hypercholesterolemia Infertile Kidney disease Malignant neoplasm of lung Myocardial infarction Parkinson's disease Prostate cancer Psychotic disorder Seizure disorder Severe allergy Stroke Thyroid disease Tuberculosis Tuberculosis Visual disorder Visual impairment No Pertinent Family Hx Physical Exam Vital Signs Vital Signs - First Documented 11/24/19 10:28 Temp 36.7 Pulse 93 Resp 16 B/P (MAP) 116/87 (97) Capillary Refill : Less Than 3 Seconds Height/Weight/BMI Height: 5'1.00" Weight: 115lbs. 0oz. 52.164451at; 21.00 BMI Method:Stated General Appearance: WD/WN, no apparent distress HEENT: PERRL/EOMI, normal ENT inspection Respiratory: no respiratory distress, no accessory muscle use Gastrointestinal: normal bowel sounds, soft, tenderness Extremities: normal range of motion, non-tender Neurologic/Psychiatric: alert, normal mood/affect, oriented x 3 Skin: normal color, warm/dry Progress/Results/Core Measures Results/Orders Lab Results Laboratory Tests Test 11/24/19 10:30 Range/Units White Blood Count 8.0 4.3-11.0 10^3/uL Red Blood Count 4.26 L 4.35-5.85 10^6/uL Hemoglobin 12.8 11.5-16.0 G/DL Hematocrit 39 35-52 % Mean Corpuscular Volume 91 80-99 FL Mean Corpuscular Hemoglobin 30 25-34 PG Mean Corpuscular Hemoglobin Concent 33 32-36 G/DL Red Cell Distribution Width 13.5 10.0-14.5 % Platelet Count 455 H 130-400 10^3/uL Mean Platelet Volume 9.5 7.4-10.4 FL Neutrophils (%) (Auto) 69 42-75 % Lymphocytes (%) (Auto) 24 12-44 % Monocytes (%) (Auto) 5 0-12 % Eosinophils (%) (Auto) 2 0-10 % Basophils (%) (Auto) 0 0-10 % Neutrophils # (Auto) 5.5 1.8-7.8 X 10^3 Lymphocytes # (Auto) 1.9 1.0-4.0 X 10^3 Monocytes # (Auto) 0.4 0.0-1.0 X 10^3 Eosinophils # (Auto) 0.1 0.0-0.3 10^3/uL Basophils # (Auto) 0.0 0.0-0.1 10^3/uL Sodium Level 139 135-145 MMOL/L Potassium Level 4.2 3.6-5.0 MMOL/L Chloride Level 109 H 98-107 MMOL/L Carbon Dioxide Level 21 21-32 MMOL/L Anion Gap 9 5-14 MMOL/L Blood Urea Nitrogen 9 7-18 MG/DL Creatinine 0.59 L 0.60-1.30 MG/DL Estimat Glomerular Filtration Rate > 60 BUN/Creatinine Ratio 15 Glucose Level 89 70-105 MG/DL Calcium Level 8.5 8.5-10.1 MG/DL Serum Test, Qualitative NEGATIVE NEGATIVE My Orders Orders - ERIKA LEWIS APRN Cbc With Automated Diff (11/24/19 10:30) Basic Metabolic Panel (11/24/19 10:30) Ed Iv/Invasive Line Start (11/24/19 10:30) Ns (Ivpb) (Sodium Chloride 0.9%) (11/24/19 10:30) Ondansetron Injection (Zofran Injectio (11/24/19 10:30) Ketamine Syringe (Ed Only) (Ketamine Syr (11/24/19 10:30) Ua Culture If Indicated (11/24/19 10:36) Hcg,Qualitative Serum (11/24/19 10:36) Ns Iv 1000 Ml (Sodium Chloride 0.9%) (11/24/19 11:00) Drug Screen Stat (Urine) (11/24/19 11:09) Medications Given in ED Current Medications Medications Dose Ordered Sig/Dani Route Start Time Stop Time Status Last Admin Dose Admin Ketamine HCl 15 mg ONCE ONCE IV 11/24/19 10:30 11/24/19 10:32 DC 11/24/19 10:48 15 MG Ondansetron HCl 4 mg ONCE ONCE IVP 11/24/19 10:30 11/24/19 10:32 DC 11/24/19 10:48 4 MG Sodium Chloride 250 ml @ 999 mls/hr Q16M ONCE IV 11/24/19 10:30 11/24/19 10:45 DC 11/24/19 10:48 999 MLS/HR Vital Signs/I&O 11/24/19 10:28 Temp 36.7 Pulse 93 Resp 16 B/P (MAP) 116/87 (97) Blood Pressure Mean: 97 Departure Impression Primary Impression: Pelvic pain Disposition: 01 HOME, SELF-CARE Condition: Stable Departure-Patient Inst. Decision time for Depature: 11:48 Referrals: NO,LOCAL PHYSICIAN (PCP/Family) Primary Care Physician Patient Instructions: Acute Pelvic Pain (DC) ERIKA LEWIS APRN Nov 24, 2019 10:39
[2019-11-24 10:41] LABS: BASOPHILS % (AUTO) 0 % (0-10); EOSINOPHILS # (AUTO) 0.1 10^3/uL (0.0-0.3); EOSINOPHILS % (AUTO) 2 % (0-10); HEMATOCRIT 39 % (35-52); HEMOGLOBIN 12.8 G/DL (11.5-16.0); LYMPHOCYTES # (AUTO) 1.9 X 10^3 (1.0-4.0); LYMPHOCYTES % (AUTO) 24 % (12-44); MEAN CORPUSCULAR HEMOGLOBIN 30 PG (25-34); MEAN CORPUSCULAR HGB CONC 33 G/DL (32-36); MEAN CORPUSCULAR VOLUME 91 FL (80-99); MEAN PLATELET VOLUME 9.5 FL (7.4-10.4); MONOCYTES # (AUTO) 0.4 X 10^3 (0.0-1.0); MONOCYTES % (AUTO) 5 % (0-12); NEUTROPHILS # (AUTO) 5.5 X 10^3 (1.8-7.8); NEUTROPHILS % (AUTO) 69 % (42-75); PLATELET COUNT 455 10^3/uL (130-400); RED CELL DISTRIBUTION WIDTH 13.5 % (10.0-14.5)
[2019-11-24] MEDS ORDERED: NS IV 1000 ML 1,000 ML IV SCH (11:00)
[2019-11-24 11:01] LABS: BUN/CREATININE RATIO 15; CALCIUM 8.5 MG/DL (8.5-10.1); CARBON DIOXIDE 21 MMOL/L (21-32); CHLORIDE 109 MMOL/L (98-107); CREATININE SERUM 0.59 MG/DL (0.60-1.30); GFR ESTIMATED > 60; GLUCOSE 89 MG/DL (70-105); SODIUM 139 MMOL/L (135-145)
[2019-11-24 11:03] LABS: POTASSIUM 4.2 MMOL/L (3.6-5.0)
--- NOTE | 2019-11-24 11:13 | NUR ---
PT STATES THE MEDICINE IS NOT REALLY HELPING YET.
[2019-11-24 12:10] VITALS: BP 110/87
[2019-11-24 12:10] LABS: BILIRUBIN,URINE NEGATIVE (NEGATIVE); CLARITY,URINE CLEAR; COLOR,URINE YELLOW; GLUCOSE, URINE (UA) NEGATIVE (NEGATIVE); KETONES,URINE NEGATIVE (NEGATIVE); LEUKOCYTE ESTERASE ,URINE TRACE (NEGATIVE); NITRITE,URINE NEGATIVE (NEGATIVE); PROTEIN,URINE NEGATIVE (NEGATIVE)
[2019-11-24 12:36] LABS: AMPHETAMINE SCREEN, URINE NEGATIVE (NEGATIVE); BENZODIAZEPINES SCREEN URINE NEGATIVE (NEGATIVE); COCAINE SCREEN URINE NEGATIVE (NEGATIVE); METHAMPHETAMINE SCREEN URINE S NEGATIVE (NEGATIVE)
[2019-11-24 12:37] LABS: BARBITURATE SCREEN URINE NEGATIVE (NEGATIVE); CANNABINOID SCREEN, URINE POSITIVE (NEGATIVE); METHADONE STAT NEGATIVE (NEGATIVE); OPIATE SCREEN URINE NEGATIVE (NEGATIVE); OXYCODONE STAT NEGATIVE (NEGATIVE); PROPOXYPHENE STAT NEGATIVE (NEGATIVE); TRICYCLIC ANTIDEPRESSANTS SCRE NEGATIVE (NEGATIVE)
[2019-11-24 12:43] LABS: BACTERIA,URINE TRACE /HPF
[2019-11-24 12:44] LABS: YEAST,URINE FEW /HPF
== END 2019-11-24 12:10 | disposition home or self-care (01) ==
LOC: ER 10:28 → EDUNIT# 10:28 → ER 12:10
DX: R10.2 Pelvic and perineal pain (principal); G89.29 Other chronic pain; Z77.22 Contact with and (suspected) exposure to environmental tobacco smoke (acute) (chronic); Z87.01 Personal history of pneumonia (recurrent); Z87.09 Personal history of other diseases of the respiratory system; Z82.49 Family history of ischemic heart disease and other diseases of the circulatory system
CPT/HCPCS: 36415; 80048; 80306; 81000; 84703; 85025

== ENCOUNTER 2019-11-26 10:12 | Emergency (ER) | payer MEDICAID ==
[~2019-11-26] VITALS: Ht 154.9 cm; Wt 49.9 kg
[2019-11-26] MEDS ORDERED: ONDANSETRON 4 MG (ZOFRAN) ORAL DISSOLVE TAB PO STA (11:31)
--- NOTE | 2019-11-26 11:31 | ED GU-Female ---
General Chief Complaint: Abdominal/GI Problems Stated Complaint: PELVIC PAIN Nursing Triage Note: pt amb to rm 9 with complaint of pelvic pain. was seen two previous times this week for same symptoms. pt has ovarian cyst and endometriosis. last took naproxen @0530 and tylenol @ 0600. has dr appointment on thursday. Nursing Sepsis Screen: No Definite Risk History of Present Illness Date Seen by Provider: Nov 26, 2019 Time Seen by Provider: 11:10 Initial Comments 23 year old female, here for her 3rd visit this week, for continued pelvic pain. She reports the pain is continuing, mild nausea, no vomiting. She has appt in [address] Talamantes. She has IUD in place, pain with intercourse 2 days ago. She has a history of endometriosis and was diagnosed with a right ovarian cyst 2 days ago. She is trying to take naproxen and Tylenol for pain that is not relieving her symptoms. 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 She is requesting no opioids for pain management. She has IUD in place but continuing to have intermittent vaginal bleeding. She requests no CT, after multiple CTs over the last 2-3 years. Timing/Duration: getting worse Severity/Quality: severe Allergies and Home Medications Allergies Coded Allergies: No Known Drug Allergies (Unverified , 01/12/16) Home Medications Capsaicin 42.5 Gm Cream..g., 42.5 GM TP BID apply to anterior abdomen twice a day as needed for pain and vomiting. Prescribed by: ERIKA LEWIS on 10/16/19 1407 Cephalexin 500 Mg Tablet, 500 MG PO BID Prescribed by: MARIA G ROBERTSON on 08/21/18 1722 Docusate Sodium 100 Mg Capsule, 100 MG PO BID PRN for CONSTIPATION-1ST LINE Prescribed by: CASSY TALAMANTES on 07/22/18 0807 Ferrous Sulfate 325 Mg Tablet, 325 MG PO DAILY@0800 Prescribed by: CASSY TALAMANTES on 07/22/18 0807 Fluconazole 150 Mg Tablet, 150 MG PO DAILY Prescribed by: ERIKA LEWIS on 11/22/19 1447 Haloperidol 5 Mg Tablet, 5 MG PO BID PRN for CRAMPS For abdominal pain. Do not take with ondansetron. Prescribed by: MYNOR GUILLAUME on 10/17/19 0802 Hydrocodone Bit/Acetaminophen 1 Tab Tab, 1 TAB PO Q4H PRN for PAIN-MODERATE Prescribed by: CASSY TALAMANTES on 07/22/18 0807 Hydrocodone Bit/Acetaminophen 1 Tab Tab, 1 EACH PO Q4-6HR PRN for PAIN-MODERATE Prescribed by: MARIA G ROBERTSON on 08/23/18 1227 Ibuprofen 600 Mg Tablet, 600 MG PO Q6H Prescribed by: CASSY TALAMANTES on 07/22/18 0807 Naproxen 500 Mg Tablet, 500 MG PO BID Prescribed by: ERIKA LEWIS on 11/22/19 1450 Ondansetron 4 Mg Tab.rapdis, 4 MG PO Q6H PRN for NAUSEA/VOMITING Prescribed by: MARIA G ROBERTSON on 11/27/18 0427 Ondansetron 4 Mg Tab.rapdis, 4 MG SL Q4H PRN for NAUSEA/VOMITING Prescribed by: DONNA EWING on 07/11/19 1418 Ondansetron 8 Mg Tab.rapdis, 8 MG PO TID Prescribed by: ERIKA LEWIS on 10/16/19 1407 Ondansetron 8 Mg Tab.rapdis, 8 MG PO Q6H PRN for NAUSEA/VOMITING Prescribed by: ERIKA LEWIS on 11/22/19 1503 Ondansetron HCl 4 Mg Tab, 4 MG PO Q4H PRN for NAUSEA/VOMITING-1ST LINE Prescribed by: ERIKA LEWIS on 08/21/18 1534 Qpr565/FA/Omega3/Dha/Fish Oil 1 Each Tab.chew, 2 EACH PO DAILY, (Reported) Potassium Chloride 20 Meq Packet, 20 MEQ PO BID Prescribed by: ERIKA LEWIS on 10/16/19 1408 Prochlorperazine Maleate 25 Mg Supp.rect, 25 MG RC Q6H PRN for NAUSEA/VOMITING- 1ST LINE Prescribed by: MARIA G ROBERTSON on 11/27/18 0427 Prochlorperazine Maleate 25 Mg Supp.rect, 25 MG RC Q6H PRN for NAUSEA/VOMITING- 1ST LINE Prescribed by: MICHA FORTUNE on 12/25/18 2315 Prochlorperazine Maleate 10 Mg Tablet, 10 MG PO TID PRN for NAUSEA/VOMITING Prescribed by: ERIKA LEWIS on 10/16/19 1407 Promethazine HCl 25 Mg Tablet, 25 MG PO Q6H PRN for NAUSEA/VOMITING Prescribed by: MARIA G ROBERTSON on 08/21/18 1722 Promethazine HCl 25 Mg Supp.rect, 25 MG RC Q6H PRN for NAUSEA/VOMITING Prescribed by: MICHA FORTUNE on 12/25/18 2315 Promethazine HCl 25 Mg Supp.rect, 25 MG RC Q8H PRN for NAUSEA/VOMITING-2ND LINE Prescribed by: MARTIN COLLINS on 11/26/19 1239 Tramadol HCl 50 Mg Tablet, 50 MG PO Q8H PRN for PAIN-MODERATE (5-7) Prescribed by: MARTIN COLLINS on 11/26/19 1239 Patient Home Medication List Home Medication List Reviewed: Yes Review of Systems Review of Systems Constitutional: no symptoms reported, see HPI Gastrointestinal: see HPI, abdominal pain, nausea Genitourinary: see HPI, pain (pelvic) All Other Systemes Reviewed Negative Unless Noted: Yes Past Icktxpu-Trbftl-Akklbk Hx Past Med/Social Hx: Reviewed Nursing Past Med/Soc Hx Patient Social History Alcohol Use: Denies Use Recreational Drug Use: Yes Drug of Choice: MARIJUANA Smoking Status: Current Everyday Smoker Type Used: Cigarettes 2nd Hand Smoke Exposure: Yes Recent Foreign Travel: No Contact w/Someone Who Travel: No Recent Infectious Disease Expo: No Recent Hopitalizations: No Immunizations Up To Date Tetanus Booster (TDap): Less than 5yrs PED Vaccines UTD: Yes Date of Pneumonia Vaccine: Nov 12, 2013 Date of Influenza Vaccine: Sep 11, 2015 Seasonal Allergies Seasonal Allergies: No Past Medical History Surgeries: Yes (LAPAROSCOPY-OVARIAN CYST, ENDOMETRIOSIS; EGD) Abdominal, Appendectomy, Gallbladder Respiratory: Yes Asthma, Pneumonia Currently Using CPAP: No Currently Using BIPAP: No Cardiac: No Neurological: No Reproductive Disorders: Yes (LT OVARIAN CYST) Female 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, Ovarian Cyst [employer] C[employer] History: IUD Sexually Transmitted Disease: No HIV/AIDS: No Genitourinary: No Gastrointestinal: Yes (CHRONIC ABDOMINAL PAIN, CHRONIC N/V, CANNABIS HYPEREMESIS SYNDROME) Musculoskeletal: No Endocrine: No HEENT: No Cancer: No Psychosocial: Yes Sleep Difficulties, Anxiety, Depression Integumentary: No Blood Disorders: No Adverse Reaction/Blood Tranf: No Family Medical History Cancer GPA-DAD SIDE, Onset:Unknown Cataract GMA-DAD SIDE Dementia GPA-DAD SIDE Family history: Arthritis GPA-MOM SIDE Family history: Cardiovascular disease GMA-DAD SIDE (CAD STINTS) GMA-MOM SIDE (ENLARGED HEART DEFIBALATOR AND PACER) History of - respiratory disease GPA-DAD SIDE (EMPHYSEMA, COPD) No Family History of: AIDS Abdominal aortic aneurysm Abdominal aortic aneurysm Grandfalls's disease Grandfalls's disease Alcoholism Alcoholism Alzheimer's disease Aphasia Aphasia Arthritis Asthma Cancer of colon Cancer of mouth Cardiovascular disease Cataracts Chest pain Colon cancer Completed stroke Congenital disease Congenital heart disease Congenital heart disease Congestive heart failure Coronary thrombosis Cystic fibrosis Cystic fibrosis Deafness or hearing loss Diabetes mellitus Drug abuse Dysphagia Dysphasia Family history: Allergy Family history: Alzheimer's disease Family history: Asthma Family history: Breast disease Family history: Coronary thrombosis Family history: Diabetes mellitus Family history: Gastrointestinal disease Family history: Glaucoma Family history: Hypertension Family history: Osteoporosis Family history: Thyroid disorder Fibrocystic disease of breast Gastroenteritis Glaucoma Headache Hearing loss Heart disease Hereditary disease History of - anemia History of - disorder History of drug abuse Human immunodeficiency virus (HIV) seropositivity Hypercholesterolemia Hypercholesterolemia Infertile Kidney disease Malignant neoplasm of lung Myocardial infarction Parkinson's disease Prostate cancer Psychotic disorder Seizure disorder Severe allergy Stroke Thyroid disease Tuberculosis Tuberculosis Visual disorder Visual impairment No Pertinent Family Hx Physical Exam Vital Signs Vital Signs - First Documented 11/26/19 10:20 Temp 36.7 Pulse 83 Resp 20 B/P (MAP) 118/87 (97) Pulse Ox 100 O2 Delivery Room Air Capillary Refill : Less Than 3 Seconds Height, Weight, BMI Height: 5'1.00" Weight: 115lbs. 0oz. [id number]; 20.00 BMI Method:Stated General Appearance: WD/WN, mild distress (secondary to pain) Neck: non-tender, full range of motion, supple, normal inspection Cardiovascular: normal peripheral pulses, regular rate, rhythm Respiratory: chest non-tender, lungs clear, normal breath sounds Gastrointestinal: normal bowel sounds; No distended, No rebound; tenderness ( bilateral lower quadrants); No mass Extremities: normal range of motion, non-tender, normal inspection, no pedal edema Neurologic/Psychiatric: no motor/sensory deficits, alert, normal mood/affect, oriented x 3 Skin: normal color, warm/dry Progress/Results/Core Measures Suspected Sepsis Recent Fever Within 48 Hours: No Infection Criteria Present: None New/Unexplained Altered Menta: No Sepsis Screen: No Definite Risk SIRS Temperature: Pulse: 83 Respiratory Rate: 20 Blood Pressure 118 /87 Mean: 97 Results/Orders Lab Results Laboratory Tests Test 11/26/19 10:46 Range/Units Urine Color YELLOW Urine Clarity CLOUDY Urine pH 8.5 5-9 Urine Specific [place] 1.015 L 1.016-1.022 Urine Protein TRACE H NEGATIVE Urine Glucose (UA) NEGATIVE NEGATIVE Urine Ketones NEGATIVE NEGATIVE Urine Nitrite NEGATIVE NEGATIVE Urine Bilirubin NEGATIVE NEGATIVE Urine Urobilinogen 0.2 < = 1.0 MG/DL Urine Leukocyte Esterase NEGATIVE NEGATIVE Urine RBC (Auto) NEGATIVE NEGATIVE Urine RBC NONE /HPF Urine WBC NONE /HPF Urine Squamous Epithelial Cells 25-50 H /HPF Urine Crystals NONE /LPF Urine Amorphous Sediment LARGE CHAZ PHOSPHATE H /LPF Urine Bacteria NEGATIVE /HPF Urine Casts NONE /LPF Urine Mucus NEGATIVE /LPF Urine Culture Indicated NO My Orders Orders - MARTIN COLLINS Urine Bedside (11/26/19 11:26) Ua Culture If Indicated (11/26/19 11:26) Tramadol Tablet (Ultram Tablet) (11/26/19 11:30) Ondansetron Oral Dissolve Tab (Zofran (11/26/19 11:31) Medications Given in ED Current Medications Medications Dose Ordered Sig/Dani Route Start Time Stop Time Status Last Admin Dose Admin Tramadol HCl 50 mg ONCE ONCE PO 11/26/19 11:30 11/26/19 11:31 DC 11/26/19 12:15 50 MG Vital Signs/I&O 11/26/19 11/26/19 10:20 12:45 Temp 36.7 36.7 Pulse 83 83 Resp 20 20 B/P (MAP) 118/87 (97) 115/80 (97) Pulse Ox 100 100 O2 Delivery Room Air Capillary Refill : Less Than 3 Seconds Blood Pressure Mean: 97 Progress Note : Time: 11:10 Progress Note Patient seen and evaluated, will give Zofran 8 mg orally for nausea and tramadol 50 mg orally for pain. Will plan to do a pelvic exam. Patient agreeable. 1130 nurse or other filament shaper unavailable for Pelvic, will wait. 1220 patient reports her pain is much better after the tramadol. Declines wanting pelvic exam. Long discussion about her pain tolerance and response to pain after abusing opioids for extended time frame. Discharge instructions and return precautions reviewed with the patient and her mother length. All questions answered. Departure Impression Primary Impression: Abdominal pain Qualified Codes: R10.84 - Generalized abdominal pain Disposition: HOME, SELF-CARE Condition: Improved Departure-Patient Inst. Decision time for Depature: 12:20 Referrals: NO,LOCAL PHYSICIAN (PCP/Family) Primary Care Physician Patient Instructions: Acute Abdomen (Belly Pain), Adult (DC), Ovarian Cyst (DC) Add. Discharge Instructions: Clear liquid diet for the next 6 hours, then bland diet as tolerated. Continue to take Naprosyn one tablet twice daily. Do not take any ibuprofen while taking Naprosyn. Take ibuprofen 650 mg every 6 hours as needed for pain. You may use the tramadol for pain not controlled by the Naprosyn and Tylenol 1 tablet every 8 hours. Continue to use her Compazine or Zofran for nausea and vomiting, if it is not relieved by the Milo the Phenergan suppositories. Complete vaginal rest: No intercourse, tampons, douching, or ANYTHING in your vagina. Keep your appt with Dr. Talamantes. Continue to avoid Opioids and Marijuana, you are doing great!! Keep it up. Return to the emergency department for new, urgent health care needs. All discharge instructions reviewed with patient and/or family. Voiced understanding. Scripts Promethazine HCl (Promethazine Suppository) 25 Mg Supp.rect 25 MG RC Q8H PRN for NAUSEA/VOMITING-2ND LINE, #8 SUPP.RECT 0 Refills Prov: MARTIN COLLINS 11/26/19 Tramadol HCl (Tramadol HCl) 50 Mg Tablet 50 MG PO Q8H PRN for PAIN-MODERATE (5-7), #20 TAB 0 Refills Prov: MARTIN COLLINS 11/26/19 Copy Copies To 1: CASSY TALAMANTES AMY ARNP Nov 26, 2019 11:31
[2019-11-26 11:32] LABS: BILIRUBIN,URINE NEGATIVE (NEGATIVE); CLARITY,URINE CLOUDY; COLOR,URINE YELLOW; GLUCOSE, URINE (UA) NEGATIVE (NEGATIVE); KETONES,URINE NEGATIVE (NEGATIVE); LEUKOCYTE ESTERASE ,URINE NEGATIVE (NEGATIVE); NITRITE,URINE NEGATIVE (NEGATIVE); PH,URINE 8.5 (5-9); PROTEIN,URINE TRACE (NEGATIVE)
[2019-11-26 11:41] LABS: AMORPHOUS SEDIMENT,UR LARGE AMOR PHOSPHATE /LPF; BACTERIA,URINE NEGATIVE /HPF; SQUAMOUS EPITHELIAL CELL,UR 25-50 /HPF
[2019-11-26] MEDS ORDERED: PROM25SU44 RC (12:39)
[2019-11-26] MEDS ORDERED: TRM50T PO (12:39)
[2019-11-26 12:45] VITALS: BP 115/80
== END 2019-11-26 12:45 | disposition home or self-care (01) ==
LOC: EDUNIT# 10:12 → ER 10:13
DX: R10.31 Right lower quadrant pain (principal); R10.32 Left lower quadrant pain; F17.210 Nicotine dependence, cigarettes, uncomplicated; Z90.49 Acquired absence of other specified parts of digestive tract; Z82.49 Family history of ischemic heart disease and other diseases of the circulatory system
CPT/HCPCS: 81000; 84703; 99283

== ENCOUNTER 2019-11-30 10:39 | Emergency (ER) | payer MEDICAID ==
[~2019-11-30] VITALS: Ht 154 cm; Wt 49.8 kg
[2019-11-30] MEDS ORDERED: KETAMINE/NaCl 50 MG/5 ML SYRINGE (ED ONLY) IV ONE (10:45)
[2019-11-30] MEDS ORDERED: KETOROLAC 30 MG/ML VIAL IVP ONE (10:45)
[2019-11-30 10:46] VITALS: BP 112/83
--- NOTE | 2019-11-30 10:53 | ED GI ---
General Chief Complaint: Abdominal/GI Problems Stated Complaint: PELVIC PAIN Source of Information: Patient Exam Limitations: No Limitations History of Present Illness Date Seen by Provider: Nov 30, 2019 Time Seen by Provider: 10:48 Initial Comments To ER by EMS from home with reports of suprapubic abdominal pain. She's been seen her multitude of times for this recently, recently got off of opiates following detox in [facility]. She reports a history of endometriosis, she has seen Dr. NI, scheduled for an outpatient ultrasound this Thursday "to help see if I need to go for surgery". Timing/Duration: 1-2 Days, Other (chronic) Severity/Quality: Moderate Location: Suprapubic Radiation: No Radiation Activities at Onset: None Associated Symptoms: Denies Symptoms; No Fever/Chills, No Nausea/Vomiting Allergies and Home Medications Allergies Coded Allergies: No Known Drug Allergies (Unverified , 01/12/16) Home Medications Capsaicin 42.5 Gm Cream..g., 42.5 GM TP BID apply to anterior abdomen twice a day as needed for pain and vomiting. Prescribed by: ERIKA LEWIS on 10/16/19 1407 Cephalexin 500 Mg Tablet, 500 MG PO BID Prescribed by: MARIA G ROBERTSON on 08/21/18 1722 Docusate Sodium 100 Mg Capsule, 100 MG PO BID PRN for CONSTIPATION-1ST LINE Prescribed by: CASSY NI on 07/22/18 0807 Ferrous Sulfate 325 Mg Tablet, 325 MG PO DAILY@0800 Prescribed by: CASSY NI on 07/22/18 0807 Fluconazole 150 Mg Tablet, 150 MG PO DAILY Prescribed by: ERIKA LEWIS on 11/22/19 1447 Haloperidol 5 Mg Tablet, 5 MG PO BID PRN for CRAMPS For abdominal pain. Do not take with ondansetron. Prescribed by: MYNOR GUILLAUME on 10/17/19 0802 Hydrocodone Bit/Acetaminophen 1 Tab Tab, 1 TAB PO Q4H PRN for PAIN-MODERATE Prescribed by: CASSY NI on 07/22/18 0807 Hydrocodone Bit/Acetaminophen 1 Tab Tab, 1 EACH PO Q4-6HR PRN for PAIN-MODERATE Prescribed by: MARIA G ROBERTSON on 08/23/18 1227 Ibuprofen 600 Mg Tablet, 600 MG PO Q6H Prescribed by: CASSY NI on 07/22/18 0807 Naproxen 500 Mg Tablet, 500 MG PO BID Prescribed by: ERIKA LEWIS on 11/22/19 1450 Ondansetron 4 Mg Tab.rapdis, 4 MG PO Q6H PRN for NAUSEA/VOMITING Prescribed by: MARIA G ROBERTSON on 11/27/18 0427 Ondansetron 4 Mg Tab.rapdis, 4 MG SL Q4H PRN for NAUSEA/VOMITING Prescribed by: DONNA EWING on 07/11/19 1418 Ondansetron 8 Mg Tab.rapdis, 8 MG PO TID Prescribed by: ERIKA LEWIS on 10/16/19 1407 Ondansetron 8 Mg Tab.rapdis, 8 MG PO Q6H PRN for NAUSEA/VOMITING Prescribed by: ERIKA LEWIS on 11/22/19 1503 Ondansetron HCl 4 Mg Tab, 4 MG PO Q4H PRN for NAUSEA/VOMITING-1ST LINE Prescribed by: ERIKA LEWIS on 08/21/18 1534 Qdb986/FA/Omega3/Dha/Fish Oil 1 Each Tab.chew, 2 EACH PO DAILY, (Reported) Potassium Chloride 20 Meq Packet, 20 MEQ PO BID Prescribed by: ERIKA LEWIS on 10/16/19 1408 Prochlorperazine Maleate 25 Mg Supp.rect, 25 MG RC Q6H PRN for NAUSEA/VOMITING- 1ST LINE Prescribed by: MARIA G ROBERTSON on 11/27/18 0427 Prochlorperazine Maleate 25 Mg Supp.rect, 25 MG RC Q6H PRN for NAUSEA/VOMITING- 1ST LINE Prescribed by: MICHA FORTUNE on 12/25/18 2315 Prochlorperazine Maleate 10 Mg Tablet, 10 MG PO TID PRN for NAUSEA/VOMITING Prescribed by: ERIKA LEWIS on 10/16/19 1407 Promethazine HCl 25 Mg Tablet, 25 MG PO Q6H PRN for NAUSEA/VOMITING Prescribed by: MARIA G ROBERTSON on 08/21/18 1722 Promethazine HCl 25 Mg Supp.rect, 25 MG RC Q6H PRN for NAUSEA/VOMITING Prescribed by: MICHA FORTUNE on 12/25/18 2315 Promethazine HCl 25 Mg Supp.rect, 25 MG RC Q8H PRN for NAUSEA/VOMITING-2ND LINE Prescribed by: MARTIN COLLINS on 11/26/19 1239 Tramadol HCl 50 Mg Tablet, 50 MG PO Q8H PRN for PAIN-MODERATE (5-7) Prescribed by: MARTIN COLLINS on 11/26/19 1239 Patient Home Medication List Home Medication List Reviewed: Yes Review of Systems Review of Systems Constitutional: see HPI EENTM: No Symptoms Reported Respiratory: No Symptoms Reported Cardiovascular: No Symptoms Reported Gastrointestinal: See HPI, Abdominal Pain; Denies Nausea Genitourinary: No Symptoms Reported Musculoskeletal: no symptoms reported Skin: no symptoms reported Psychiatric/Neurological: No Symptoms Reported Endocrine: No Symptoms Reported Hematologic/Lymphatic: No Symptoms Reported Past Eykkfaj-Fdvxxm-Hryzpi Hx Patient Social History Drug of Choice: MARIJUANA Type Used: Cigarettes 2nd Hand Smoke Exposure: Yes Recent Hopitalizations: No Immunizations Up To Date Tetanus Booster (TDap): Less than 5yrs PED Vaccines UTD: Yes Date of Pneumonia Vaccine: Nov 12, 2013 Date of Influenza Vaccine: Sep 11, 2015 Seasonal Allergies Seasonal Allergies: No Past Medical History Surgeries: Yes (LAPAROSCOPY-OVARIAN CYST, ENDOMETRIOSIS; EGD) Abdominal, Appendectomy, Gallbladder Respiratory: Yes Asthma, Pneumonia Currently Using CPAP: No Currently Using BIPAP: No Cardiac: No Neurological: No Reproductive Disorders: Yes (LT OVARIAN CYST) Female 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, 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 Sexually Transmitted Disease: No HIV/AIDS: No Genitourinary: No Gastrointestinal: Yes (CHRONIC ABDOMINAL PAIN, CHRONIC N/V, CANNABIS HYPEREMESIS SYNDROME) Musculoskeletal: No Endocrine: No HEENT: No Cancer: No Psychosocial: Yes Sleep Difficulties, Anxiety, Depression Integumentary: No Blood Disorders: No Adverse Reaction/Blood Tranf: No Family Medical History Cancer GPA-DAD SIDE, Onset:Unknown Cataract GMA-DAD SIDE Dementia GPA-DAD SIDE Family history: Arthritis GPA-MOM SIDE Family history: Cardiovascular disease GMA-DAD SIDE (CAD STINTS) GMA-MOM SIDE (ENLARGED HEART DEFIBALATOR AND PACER) History of - respiratory disease GPA-DAD SIDE (EMPHYSEMA, COPD) No Family History of: AIDS Abdominal aortic aneurysm Abdominal aortic aneurysm Fidel's disease Onarga's disease Alcoholism Alcoholism Alzheimer's disease Aphasia Aphasia Arthritis Asthma Cancer of colon Cancer of mouth Cardiovascular disease Cataracts Chest pain Colon cancer Completed stroke Congenital disease Congenital heart disease Congenital heart disease Congestive heart failure Coronary thrombosis Cystic fibrosis Cystic fibrosis Deafness or hearing loss Diabetes mellitus Drug abuse Dysphagia Dysphasia Family history: Allergy Family history: Alzheimer's disease Family history: Asthma Family history: Breast disease Family history: Coronary thrombosis Family history: Diabetes mellitus Family history: Gastrointestinal disease Family history: Glaucoma Family history: Hypertension Family history: Osteoporosis Family history: Thyroid disorder Fibrocystic disease of breast Gastroenteritis Glaucoma Headache Hearing loss Heart disease Hereditary disease History of - anemia History of - disorder History of drug abuse Human immunodeficiency virus (HIV) seropositivity Hypercholesterolemia Hypercholesterolemia Infertile Kidney disease Malignant neoplasm of lung Myocardial infarction Parkinson's disease Prostate cancer Psychotic disorder Seizure disorder Severe allergy Stroke Thyroid disease Tuberculosis Tuberculosis Visual disorder Visual impairment No Pertinent Family Hx Physical Exam Vital Signs Vital Signs - First Documented 11/30/19 10:46 Temp 36.5 Pulse 94 Resp 18 B/P (MAP) 112/83 (93) Pulse Ox 98 Capillary Refill : Height/Weight/BMI Height: 5'1.00" Weight: 115lbs. 0oz. 52.585453bv; 20.00 BMI Method:Stated General Appearance: WD/WN, no apparent distress HEENT: PERRL/EOMI, normal ENT inspection Respiratory: no respiratory distress, no accessory muscle use Gastrointestinal: normal bowel sounds, soft, tenderness, other (erythema ab Igne appearance to abdominal skin from senior care heat application. ) Neurologic/Psychiatric: alert, normal mood/affect Skin: normal color, warm/dry Exam Comments Tearful, position, this is her usual presentation. Progress/Results/Core Measures Results/Orders Lab Results Laboratory Tests Test 11/30/19 10:58 11/30/19 11:09 Range/Units White Blood Count 6.1 4.3-11.0 10^3/uL Red Blood Count 4.83 4.35-5.85 10^6/uL Hemoglobin 14.3 11.5-16.0 G/DL Hematocrit 43 35-52 % Mean Corpuscular Volume 89 80-99 FL Mean Corpuscular Hemoglobin 30 25-34 PG Mean Corpuscular Hemoglobin Concent 33 32-36 G/DL Red Cell Distribution Width 13.2 10.0-14.5 % Platelet Count 394 130-400 10^3/uL Mean Platelet Volume 9.1 7.4-10.4 FL Neutrophils (%) (Auto) 65 42-75 % Lymphocytes (%) (Auto) 28 12-44 % Monocytes (%) (Auto) 5 0-12 % Eosinophils (%) (Auto) 1 0-10 % Basophils (%) (Auto) 0 0-10 % Neutrophils # (Auto) 4.0 1.8-7.8 X 10^3 Lymphocytes # (Auto) 1.7 1.0-4.0 X 10^3 Monocytes # (Auto) 0.3 0.0-1.0 X 10^3 Eosinophils # (Auto) 0.1 0.0-0.3 10^3/uL Basophils # (Auto) 0.0 0.0-0.1 10^3/uL Sodium Level 137 135-145 MMOL/L Potassium Level 4.0 3.6-5.0 MMOL/L Chloride Level 104 98-107 MMOL/L Carbon Dioxide Level 23 21-32 MMOL/L Anion Gap 10 5-14 MMOL/L Blood Urea Nitrogen 8 7-18 MG/DL Creatinine 0.66 0.60-1.30 MG/DL Estimat Glomerular Filtration Rate > 60 BUN/Creatinine Ratio 12 Glucose Level 91 70-105 MG/DL Calcium Level 9.5 8.5-10.1 MG/DL Corrected Calcium 9.3 8.5-10.1 MG/DL Total Bilirubin 0.5 0.1-1.0 MG/DL Aspartate Amino Transf (AST/SGOT) 9 5-34 U/L Alanine Aminotransferase (ALT/SGPT) 8 0-55 U/L Alkaline Phosphatase 79 40-136 U/L Total Protein 6.9 6.4-8.2 GM/DL Albumin 4.3 3.2-4.5 GM/DL Urine Color YELLOW Urine Clarity CLEAR Urine pH 8.5 5-9 Urine Specific [place] 1.015 L 1.016-1.022 Urine Protein NEGATIVE NEGATIVE Urine Glucose (UA) NEGATIVE NEGATIVE Urine Ketones NEGATIVE NEGATIVE Urine Nitrite NEGATIVE NEGATIVE Urine Bilirubin NEGATIVE NEGATIVE Urine Urobilinogen 0.2 < = 1.0 MG/DL Urine Leukocyte Esterase NEGATIVE NEGATIVE Urine RBC (Auto) NEGATIVE NEGATIVE Urine RBC NONE /HPF Urine WBC NONE /HPF Urine Squamous Epithelial Cells 5-10 /HPF Urine Crystals NONE /LPF Urine Bacteria NEGATIVE /HPF Urine Casts NONE /LPF Urine Mucus NEGATIVE /LPF Urine Culture Indicated NO Urine Opiates Screen NEGATIVE NEGATIVE Urine Oxycodone Screen NEGATIVE NEGATIVE Urine Methadone Screen NEGATIVE NEGATIVE Urine Propoxyphene Screen NEGATIVE NEGATIVE Urine Barbiturates Screen NEGATIVE NEGATIVE Ur Tricyclic Antidepressants Screen NEGATIVE NEGATIVE Urine Phencyclidine Screen NEGATIVE NEGATIVE Urine Amphetamines Screen NEGATIVE NEGATIVE Urine Methamphetamines Screen NEGATIVE NEGATIVE Urine Benzodiazepines Screen NEGATIVE NEGATIVE Urine Cocaine Screen NEGATIVE NEGATIVE Urine Cannabinoids Screen POSITIVE H NEGATIVE My Orders Orders - ERIKA LEWIS APRN Cbc With Automated Diff (11/30/19 10:44) Ua Culture If Indicated (11/30/19 10:44) Comprehensive Metabolic Panel (11/30/19 10:44) Ed Iv/Invasive Line Start (11/30/19 10:44) Drug Screen Stat (Urine) (11/30/19 10:44) Us Non Ob Pelvis Comp/Transvag (11/30/19 10:44) Ketorolac Injection (Toradol Injection) (11/30/19 10:45) Ketamine Syringe (Ed Only) (Ketamine Syr (11/30/19 10:45) Ns (Ivpb) (Sodium Chloride 0.9%) (11/30/19 11:15) Medications Given in ED Current Medications Medications Dose Ordered Sig/Dani Route Start Time Stop Time Status Last Admin Dose Admin Ketamine HCl 15 mg ONCE ONCE IV 11/30/19 10:45 11/30/19 10:47 DC 11/30/19 12:04 15 MG Ketorolac Tromethamine 15 mg ONCE ONCE IVP 11/30/19 10:45 11/30/19 10:47 DC 11/30/19 12:03 15 MG Sodium Chloride 250 ml @ 999 mls/hr Q16M ONCE IV 11/30/19 11:15 11/30/19 11:30 DC 11/30/19 12:04 999 MLS/HR Vital Signs/I&O 11/30/19 10:46 Temp 36.5 Pulse 94 Resp 18 B/P (MAP) 112/83 (93) Pulse Ox 98 Diagnostic Imaging Diagonstic Imaging: Ultrasound Comments NAME: LAZARA MATHIS [facility] REC#: [id number] PT STATUS: REG ER : 1995 PHYSICIAN: ERIKA LEWIS APRN ADMIT DATE: 11/30/19/ER Draft Date of Exam:11/30/19 US NON OB PELVIS COMP/TRANSVAG PROCEDURE: US non-OB pelvis comp/trans. TECHNIQUE: Multiple realtime grayscale images were obtained of the pelvis in various projections endovaginally. Transabdominal imaging was also performed. INDICATION: Dyspareunia. COMPARISON: Study compared to 11/22/2019. FINDINGS: There is an IUD device present, abnormally caudally positioned within the cervix and likely extending into the vagina but does not extend appreciably into the uterine body. No evidence for its perforation. There is no fibroid or myometrial mass. The endometrium measures 4 mm, homogeneous and within normal limits. Some follicular cysts in the right ovary are present. The left ovary is also unremarkable. There is color Doppler blood flow to both ovaries and adnexa. No evidence for torsion. No free fluid. IMPRESSION: Abnormal caudal positioning of the IUD device is now noted confined to the cervix and below. Physiologic follicular ovarian cysts without torsion. No fibroid or endometrial pathology evident. Dictated on workstation # [id number] Dict: 11/30/19 1159 Trans: 11/30/19 1204 [id number] Interpreted by: TU COLBERT Electronically signed by: Departure Communication (Admissions) [id number]-patient has decided that she would like to leave AGAINST MEDICAL ADVICE at this time. She feels her pain is not adequately controlled. I have left a message for Dr. NI to call me back in regards to whether or not he would like me to remove the IUD, however patient decided to leave AGAINST MEDICAL ADVICE before he was able to return my call. Impression Primary Impression: Malpositioned IUD Additional Impression: Chronic pelvic pain in female Disposition: 07 AGAINST MEDICAL ADVICE Condition: Against Medical Advice Departure-Patient Inst. Referrals: NO,LOCAL PHYSICIAN (PCP/Family) Primary Care Physician Copy Copies To 1: CASSY NI PETER J APRN Nov 30, 2019 10:53
[2019-11-30 11:07] LABS: BASOPHILS % (AUTO) 0 % (0-10); EOSINOPHILS # (AUTO) 0.1 10^3/uL (0.0-0.3); EOSINOPHILS % (AUTO) 1 % (0-10); HEMATOCRIT 43 % (35-52); HEMOGLOBIN 14.3 G/DL (11.5-16.0); LYMPHOCYTES # (AUTO) 1.7 X 10^3 (1.0-4.0); LYMPHOCYTES % (AUTO) 28 % (12-44); MEAN CORPUSCULAR HEMOGLOBIN 30 PG (25-34); MEAN CORPUSCULAR HGB CONC 33 G/DL (32-36); MEAN CORPUSCULAR VOLUME 89 FL (80-99); MEAN PLATELET VOLUME 9.1 FL (7.4-10.4); MONOCYTES # (AUTO) 0.3 X 10^3 (0.0-1.0); MONOCYTES % (AUTO) 5 % (0-12); NEUTROPHILS % (AUTO) 65 % (42-75); PLATELET COUNT 394 10^3/uL (130-400); RED CELL DISTRIBUTION WIDTH 13.2 % (10.0-14.5); WHITE BLOOD COUNT 6.1 10^3/uL (4.3-11.0)
[2019-11-30] MEDS ORDERED: NS (IVPB) 250 ML IV ONE (11:15)
[2019-11-30 11:17] LABS: BILIRUBIN,URINE NEGATIVE (NEGATIVE); CLARITY,URINE CLEAR; COLOR,URINE YELLOW; GLUCOSE, URINE (UA) NEGATIVE (NEGATIVE); KETONES,URINE NEGATIVE (NEGATIVE); LEUKOCYTE ESTERASE ,URINE NEGATIVE (NEGATIVE); NITRITE,URINE NEGATIVE (NEGATIVE); PH,URINE 8.5 (5-9); PROTEIN,URINE NEGATIVE (NEGATIVE)
[2019-11-30 11:25] LABS: BACTERIA,URINE NEGATIVE /HPF
[2019-11-30 11:26] LABS: ALANINE AMINOTRANSFERASE 8 U/L (0-55); ALBUMIN 4.3 GM/DL (3.2-4.5); ALKALINE PHOSPHATASE 79 U/L (40-136); BILIRUBIN,TOTAL 0.5 MG/DL (0.1-1.0); BUN/CREATININE RATIO 12; CALCIUM 9.5 MG/DL (8.5-10.1); CARBON DIOXIDE 23 MMOL/L (21-32); CHLORIDE 104 MMOL/L (98-107); CREATININE SERUM 0.66 MG/DL (0.60-1.30); GFR ESTIMATED > 60; GLUCOSE 91 MG/DL (70-105); SODIUM 137 MMOL/L (135-145); TOTAL PROTEIN 6.9 GM/DL (6.4-8.2)
--- NOTE | 2019-11-30 12:05 | Diagnostic Imaging Report ---
PROCEDURE: US non-OB pelvis comp/trans. TECHNIQUE: Multiple realtime grayscale images were obtained of the pelvis in various projections endovaginally. Transabdominal imaging was also performed. INDICATION: Dyspareunia. COMPARISON: Study compared to 11/22/2019. FINDINGS: There is an IUD device present, abnormally caudally positioned within the cervix and likely extending into the vagina but does not extend appreciably into the uterine body. No evidence for its perforation. There is no fibroid or myometrial mass. The endometrium measures 4 mm, homogeneous and within normal limits. Some follicular cysts in the right ovary are present. The left ovary is also unremarkable. There is color Doppler blood flow to both ovaries and adnexa. No evidence for torsion. No free fluid. IMPRESSION: Abnormal caudal positioning of the IUD device is now noted confined to the cervix and below. Physiologic follicular ovarian cysts without torsion. No fibroid or endometrial pathology evident. Dictated by: Dictated on workstation # [id number]
[2019-11-30 12:11] LABS: AMPHETAMINE SCREEN, URINE NEGATIVE (NEGATIVE); BARBITURATE SCREEN URINE NEGATIVE (NEGATIVE); BENZODIAZEPINES SCREEN URINE NEGATIVE (NEGATIVE); CANNABINOID SCREEN, URINE POSITIVE (NEGATIVE); COCAINE SCREEN URINE NEGATIVE (NEGATIVE); METHADONE STAT NEGATIVE (NEGATIVE); METHAMPHETAMINE SCREEN URINE S NEGATIVE (NEGATIVE); OPIATE SCREEN URINE NEGATIVE (NEGATIVE); OXYCODONE STAT NEGATIVE (NEGATIVE); PROPOXYPHENE STAT NEGATIVE (NEGATIVE); TRICYCLIC ANTIDEPRESSANTS SCRE NEGATIVE (NEGATIVE)
== END 2019-11-30 12:15 | disposition left against medical advice (07) ==
LOC: EDUNIT# 10:39 → ER 10:40
DX: T83.32XA Displacement of intrauterine contraceptive device, initial encounter (principal); G89.29 Other chronic pain; Z77.22 Contact with and (suspected) exposure to environmental tobacco smoke (acute) (chronic); Z82.49 Family history of ischemic heart disease and other diseases of the circulatory system
CPT/HCPCS: 36415; 76830; 76856; 80053; 80306; 81000; 85025

== ENCOUNTER → 2019-12-02 | Outpatient (CLI) | payer MEDICAID ==
[~2019-12-02] MED LIST changes: -OMEP-280 PO; +OMEP20CA18 PO
== END ==
LOC: RAD 13:53
PROVIDERS: ATTEND Obstetrics & Gynecology
DX: G89.29 Other chronic pain (principal); R10.2 Pelvic and perineal pain

== ENCOUNTER 2019-12-05 19:07 | Emergency (ER) | payer MEDICAID ==
[~2019-12-05] VITALS: Ht 154.9 cm; Wt 54.5 kg
[2019-12-05] MEDS ORDERED: NS IV 1000 ML 1,000 ML IV SCH (19:14)
[2019-12-05] MEDS ORDERED: KETOROLAC 30 MG/ML VIAL IVP ONE (19:15)
--- NOTE | 2019-12-05 19:22 | ED Abdominal Pain ---
General Chief Complaint: Abdominal/GI Problems Stated Complaint: PELVIC PAIN Source of Information: Patient, EMS Exam Limitations: No Limitations History of Present Illness Date Seen by Provider: Dec 05, 2019 Time Seen by Provider: 19:06 Initial Comments Patient resents ER by private conveyance from home with chief complaint of abdominal pain over the past 3 days progressively getting worse in her low pelvis bilaterally. She's had her gallbladder and appendix out in the past. She also had some endometriosis ablated at the time of her appendectomy when she was 17 years old, 7 years ago. She is being worked up by Dr. NI, gynecology who did an ultrasound last week and she has an appointment tomorrow to get results and set up surgery to ablate her endometriosis again. She has a history of cyclical vomiting syndrome. She is not having any nausea and had a normal bowel movement earlier today. She's had no fevers or chills. No other known medical problems. She did try Tylenol number Profen with minimal relief. She tried tramadol she said made her pain worse. She does have a history of opioid dependence status post using inpatient rehabilitation recently. She still smokes cannabis occasionally. She does not see a primary care doctor. She has not had referral to a triple air valve tester. She was seen in this ER on the and a transabdominal ultrasound of the pelvis was obtained demonstrating a caudally displaced IUD in the cervix and below with the distal tip of the IUD in the vagina. She does endorse dyspareunia. She went AMA before any intervention could be done at that time. Allergies and Home Medications Allergies Coded Allergies: No Known Drug Allergies (Unverified , 01/12/16) Home Medications Capsaicin 42.5 Gm Cream..g., 42.5 GM TP BID apply to anterior abdomen twice a day as needed for pain and vomiting. Prescribed by: ERIKA LEWIS on 10/16/19 1407 Cephalexin 500 Mg Tablet, 500 MG PO BID Prescribed by: MARIA G ROBERTSON on 08/21/18 1722 Docusate Sodium 100 Mg Capsule, 100 MG PO BID PRN for CONSTIPATION-1ST LINE Prescribed by: CASSY NI on 07/22/18 0807 Ferrous Sulfate 325 Mg Tablet, 325 MG PO DAILY@0800 Prescribed by: CASSY NI on 07/22/18 0807 Fluconazole 150 Mg Tablet, 150 MG PO DAILY Prescribed by: ERIKA LEWIS on 11/22/19 1447 Haloperidol 5 Mg Tablet, 5 MG PO BID PRN for CRAMPS For abdominal pain. Do not take with ondansetron. Prescribed by: MYNOR GUILLAUME on 10/17/19 0802 Hydrocodone Bit/Acetaminophen 1 Tab Tab, 1 TAB PO Q4H PRN for PAIN-MODERATE Prescribed by: CASSY NI on 07/22/18 0807 Hydrocodone Bit/Acetaminophen 1 Tab Tab, 1 EACH PO Q4-6HR PRN for PAIN-MODERATE Prescribed by: MARIA G ROBERTSON on 08/23/18 1227 Ibuprofen 600 Mg Tablet, 600 MG PO Q6H Prescribed by: CASSY NI on 07/22/18 0807 Naproxen 500 Mg Tablet, 500 MG PO BID Prescribed by: ERIKA LEWIS on 11/22/19 1450 Ondansetron 4 Mg Tab.rapdis, 4 MG PO Q6H PRN for NAUSEA/VOMITING Prescribed by: MARIA G ROBERTSON on 11/27/18 0427 Ondansetron 4 Mg Tab.rapdis, 4 MG SL Q4H PRN for NAUSEA/VOMITING Prescribed by: DONNA EWING on 07/11/19 1418 Ondansetron 8 Mg Tab.rapdis, 8 MG PO TID Prescribed by: ERIKA LEWIS on 10/16/19 1407 Ondansetron 8 Mg Tab.rapdis, 8 MG PO Q6H PRN for NAUSEA/VOMITING Prescribed by: ERIKA LEWIS on 11/22/19 1503 Ondansetron HCl 4 Mg Tab, 4 MG PO Q4H PRN for NAUSEA/VOMITING-1ST LINE Prescribed by: ERIKA LEWIS on 08/21/18 1534 Skz937/FA/Omega3/Dha/Fish Oil 1 Each Tab.chew, 2 EACH PO DAILY, (Reported) Potassium Chloride 20 Meq Packet, 20 MEQ PO BID Prescribed by: ERIKA LEWIS on 10/16/19 1408 Prochlorperazine Maleate 25 Mg Supp.rect, 25 MG RC Q6H PRN for NAUSEA/VOMITING- 1ST LINE Prescribed by: MARIA G ROBERTSON on 11/27/18 0427 Prochlorperazine Maleate 25 Mg Supp.rect, 25 MG RC Q6H PRN for NAUSEA/VOMITING- 1ST LINE Prescribed by: MICHA FORTUNE on 12/25/18 2315 Prochlorperazine Maleate 10 Mg Tablet, 10 MG PO TID PRN for NAUSEA/VOMITING Prescribed by: ERIKA LEWIS on 10/16/19 1407 Promethazine HCl 25 Mg Tablet, 25 MG PO Q6H PRN for NAUSEA/VOMITING Prescribed by: MARIA G ROBERTSON on 08/21/18 1722 Promethazine HCl 25 Mg Supp.rect, 25 MG RC Q6H PRN for NAUSEA/VOMITING Prescribed by: MICHA FORTUNE on 12/25/18 2315 Promethazine HCl 25 Mg Supp.rect, 25 MG RC Q8H PRN for NAUSEA/VOMITING-2ND LINE Prescribed by: MARTIN COLLINS on 11/26/19 1239 Tramadol HCl 50 Mg Tablet, 50 MG PO Q8H PRN for PAIN-MODERATE (5-7) Prescribed by: MARTIN COLLINS on 11/26/19 1239 Patient Home Medication List Home Medication List Reviewed: Yes Review of Systems Review of Systems Constitutional: No chills, No diaphoresis EENTM: No Blurred Vision, No Double Vision Respiratory: Denies Cough, Denies Shortness of Air Cardiovascular: Denies Chest Pain, Denies Edema Gastrointestinal: See HPI; Denies Abdomen Distended; Abdominal Pain; Denies Constipated, Denies Diarrhea, Denies Nausea, Denies Poor Fluid Intake, Denies Vomiting Genitourinary: Denies Burning, Denies Discharge, Denies Drainage Musculoskeletal: No back pain, No joint pain All Other Systems Reviewed Negative Unless Noted: Yes Past Nuppcyz-Lmgqys-Giwnfu Hx Patient Social History Alcohol Use: Denies Use Recreational Drug Use: Yes Drug of Choice: cannabis Smoking Status: Current Everyday Smoker Type Used: Cigarettes 2nd Hand Smoke Exposure: Yes Recent Hopitalizations: No Immunizations Up To Date Tetanus Booster (TDap): Less than 5yrs PED Vaccines UTD: Yes Date of Pneumonia Vaccine: Nov 12, 2013 Date of Influenza Vaccine: Sep 11, 2015 Seasonal Allergies Seasonal Allergies: No Past Medical History Surgeries: Yes (LAPAROSCOPY-OVARIAN CYST, ENDOMETRIOSIS; EGD) Abdominal, Appendectomy, Gallbladder Respiratory: Yes Asthma, Pneumonia Currently Using CPAP: No Currently Using BIPAP: No Cardiac: No Neurological: No Reproductive Disorders: Yes (LT OVARIAN CYST) Female 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, 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 Sexually Transmitted Disease: No HIV/AIDS: No Genitourinary: No Gastrointestinal: Yes (CHRONIC ABDOMINAL PAIN, CHRONIC N/V, CANNABIS HYPEREMESIS SYNDROME) Musculoskeletal: No Endocrine: No HEENT: No Cancer: No Psychosocial: Yes Sleep Difficulties, Anxiety, Depression Integumentary: No Blood Disorders: No Adverse Reaction/Blood Tranf: No Family Medical History Cancer GPA-DAD SIDE, Onset:Unknown Cataract GMA-DAD SIDE Dementia GPA-DAD SIDE Family history: Arthritis GPA-MOM SIDE Family history: Cardiovascular disease GMA-DAD SIDE (CAD STINTS) GMA-MOM SIDE (ENLARGED HEART DEFIBALATOR AND PACER) History of - respiratory disease GPA-DAD SIDE (EMPHYSEMA, COPD) No Family History of: AIDS Abdominal aortic aneurysm Abdominal aortic aneurysm Cascade's disease Cascade's disease Alcoholism Alcoholism Alzheimer's disease Aphasia Aphasia Arthritis Asthma Cancer of colon Cancer of mouth Cardiovascular disease Cataracts Chest pain Colon cancer Completed stroke Congenital disease Congenital heart disease Congenital heart disease Congestive heart failure Coronary thrombosis Cystic fibrosis Cystic fibrosis Deafness or hearing loss Diabetes mellitus Drug abuse Dysphagia Dysphasia Family history: Allergy Family history: Alzheimer's disease Family history: Asthma Family history: Breast disease Family history: Coronary thrombosis Family history: Diabetes mellitus Family history: Gastrointestinal disease Family history: Glaucoma Family history: Hypertension Family history: Osteoporosis Family history: Thyroid disorder Fibrocystic disease of breast Gastroenteritis Glaucoma Headache Hearing loss Heart disease Hereditary disease History of - anemia History of - disorder History of drug abuse Human immunodeficiency virus (HIV) seropositivity Hypercholesterolemia Hypercholesterolemia Infertile Kidney disease Malignant neoplasm of lung Myocardial infarction Parkinson's disease Prostate cancer Psychotic disorder Seizure disorder Severe allergy Stroke Thyroid disease Tuberculosis Tuberculosis Visual disorder Visual impairment No Pertinent Family Hx Physical Exam Vital Signs Vital Signs - First Documented 12/05/19 19:09 Temp 37.0 Pulse 125 Resp 20 B/P (MAP) 114/94 (101) O2 Delivery Room Air Capillary Refill : Height/Weight/BMI Height: 5'1.00" Weight: 115lbs. 0oz. 52.954371bj; 20.00 BMI Method:Stated General Appearance: WD/WN, mild distress HEENT: PERRL/EOMI, pharynx normal Neck: full range of motion, supple, normal inspection Respiratory: lungs clear, normal breath sounds, no respiratory distress, no accessory muscle use Cardiovascular: normal peripheral pulses, regular rate, rhythm Peripheral Pulses: 2+ Radial Pulses (R), 2+ Radial Pulses (L) Extremities: normal inspection, no pedal edema, normal capillary refill Neurologic/Psychiatric: alert, oriented x 3, other (tearful affect) Skin: normal color, warm/dry Progress/Results/Core Measures Results/Orders Lab Results Laboratory Tests Test 12/05/19 19:15 12/05/19 20:41 Range/Units White Blood Count 7.7 4.3-11.0 10^3/uL Red Blood Count 4.43 4.35-5.85 10^6/uL Hemoglobin 13.3 11.5-16.0 G/DL Hematocrit 39 35-52 % Mean Corpuscular Volume 87 80-99 FL Mean Corpuscular Hemoglobin 30 25-34 PG Mean Corpuscular Hemoglobin Concent 34 32-36 G/DL Red Cell Distribution Width 12.7 10.0-14.5 % Platelet Count 346 130-400 10^3/uL Mean Platelet Volume 9.2 7.4-10.4 FL Neutrophils (%) (Auto) 60 42-75 % Lymphocytes (%) (Auto) 34 12-44 % Monocytes (%) (Auto) 5 0-12 % Eosinophils (%) (Auto) 0 0-10 % Basophils (%) (Auto) 0 0-10 % Neutrophils # (Auto) 4.6 1.8-7.8 X 10^3 Lymphocytes # (Auto) 2.6 1.0-4.0 X 10^3 Monocytes # (Auto) 0.4 0.0-1.0 X 10^3 Eosinophils # (Auto) 0.0 0.0-0.3 10^3/uL Basophils # (Auto) 0.0 0.0-0.1 10^3/uL Sodium Level 135 135-145 MMOL/L Potassium Level 3.4 L 3.6-5.0 MMOL/L Chloride Level 101 98-107 MMOL/L Carbon Dioxide Level 22 21-32 MMOL/L Anion Gap 12 5-14 MMOL/L Blood Urea Nitrogen 10 7-18 MG/DL Creatinine 0.72 0.60-1.30 MG/DL Estimat Glomerular Filtration Rate > 60 BUN/Creatinine Ratio 14 Glucose Level 120 H 70-105 MG/DL Calcium Level 9.5 8.5-10.1 MG/DL Corrected Calcium 9.3 8.5-10.1 MG/DL Total Bilirubin 1.0 0.1-1.0 MG/DL Aspartate Amino Transf (AST/SGOT) 11 5-34 U/L Alanine Aminotransferase (ALT/SGPT) 9 0-55 U/L Alkaline Phosphatase 78 40-136 U/L C-Reactive Protein High Sensitivity 0.12 0.00-0.50 MG/DL Total Protein 6.6 6.4-8.2 GM/DL Albumin 4.2 3.2-4.5 GM/DL Lipase 6 L 8-78 U/L My Orders Orders - MARIA G ROBERTSON Ed Iv/Invasive Line Start (12/05/19 19:14) Ns Iv 1000 Ml (Sodium Chloride 0.9%) (12/05/19 19:14) Ketorolac Injection (Toradol Injection) (12/05/19 19:15) Cbc With Automated Diff (12/05/19 19:14) Comprehensive Metabolic Panel (12/05/19 19:14) Hs C Reactive Protein (12/05/19 19:14) Lipase (12/05/19 19:14) Ua Culture If Indicated (12/05/19 19:14) Urine Bedside (12/05/19 19:14) Drug Screen Stat (Urine) (12/05/19 19:14) Ketamine Syringe (Ed Only) (Ketamine Syr (12/05/19 19:45) Ketamine Syringe (Ed Only) (Ketamine Syr (12/05/19 20:30) Ondansetron Injection (Zofran Injectio (12/05/19 20:30) Medications Given in ED Current Medications Medications Dose Ordered Sig/Adni Route Start Time Stop Time Status Last Admin Dose Admin Ketamine HCl 25 mg ONCE ONCE IV 12/05/19 19:45 12/05/19 19:46 DC 12/05/19 19:57 25 MG Ketamine HCl 25 mg ONCE ONCE IV 12/05/19 20:30 12/05/19 20:31 DC 12/05/19 20:47 25 MG Ketorolac Tromethamine 30 mg ONCE ONCE IVP 12/05/19 19:15 12/05/19 19:18 DC 12/05/19 19:22 30 MG Ondansetron HCl 8 mg ONCE ONCE IVP 12/05/19 20:30 12/05/19 20:31 DC 12/05/19 20:44 8 MG Vital Signs/I&O 12/05/19 19:09 Temp 37.0 Pulse 125 Resp 20 B/P (MAP) 114/94 (101) O2 Delivery Room Air Progress Progress Note #1: Time: 19:21 Progress Note Patient is tearful and appears to be in some mild distress with tachycardia around 120 230 which could be from her pain. She does not seem to be having any bowel symptoms. Return to give her some Toradol and obtain some labs and urine and then attempt a better abdominal exam. Presently now she is in too great distress to obtain a proper exam as she is balled up in the bed, crying. In the past large amounts of opiates of been successful in abating her pain however she also has had difficulty with dependence on opiates. Progress Note #2: Time: 20:55 Progress Note Patient said that her pain was only modestly improved and would like some fentanyl so she can go home and get some sleep before going to her appointment later this week. We have informed her that with her history of opioid dependency fentanyl would not be a good choice. It would not last very long and that only reinforce poor decision making behavior. The patient does seem to be significantly more relaxed after the ketamine. We have offered to give her another 25 mg of ketamine slow IV push. She has acquiesced to do this. Nursing informs me that the patient wants her IV taken out so she can leave and go home. Patient is decisional, alert, oriented times person, place, time and situation. She has follow-up appointment in 2 days and we have informed her that she should return if she has worsening symptoms. We have not been able to see her urine specimen results yet. Informed her that there could be undiscovered disease which could result in worsening condition up to and including . She still wants to go AGAINST MEDICAL ADVICE. Diagnostic Imaging Diagonstic Imaging: Ultrasound Plain Films/CT/US/NM/MRI: pelvis Comments [facility], [place] NAME: LAZARA MATHIS [facility] REC#: [id number] PT STATUS: DEP ER : 1995 PHYSICIAN: ERIKA LEWIS APRN ADMIT DATE: 11/30/19/ER Signed Date of Exam:11/30/19 US NON OB PELVIS COMP/TRANSVAG PROCEDURE: US non-OB pelvis comp/trans. TECHNIQUE: Multiple realtime grayscale images were obtained of the pelvis in various projections endovaginally. Transabdominal imaging was also performed. INDICATION: Dyspareunia. COMPARISON: Study compared to 11/22/2019. FINDINGS: There is an IUD device present, abnormally caudally positioned within the cervix and likely extending into the vagina but does not extend appreciably into the uterine body. No evidence for its perforation. There is no fibroid or myometrial mass. The endometrium measures 4 mm, homogeneous and within normal limits. Some follicular cysts in the right ovary are present. The left ovary is also unremarkable. There is color Doppler blood flow to both ovaries and adnexa. No evidence for torsion. No free fluid. IMPRESSION: Abnormal caudal positioning of the IUD device is now noted confined to the cervix and below. Physiologic follicular ovarian cysts without torsion. No fibroid or endometrial pathology evident. Dictated by: Dictated on workstation # [id number] Dict: 11/30/19 1159 Trans: 11/30/19 1713 [id number] Interpreted by: TU COLBERT Electronically signed by: TU COLBERT 11/30/19 1713 Reviewed: Reviewed by Me Consults : Consulting Physician: CASSY NI DO Consults Notes 0: Discussed case with Dr. NI and he is aware of the ultrasound as well as her recent trips to the ER. He is aware of the difficulties surrounding taking care of her. He does have an appointment with her later this week and will discuss looking for endometriosis or other causes of her pain with her. He does not feel that the IUD would be to blame for her level of severity of pain and did offer to have it taken out in the clinic last time she was there but she declined. Departure Impression Primary Impression: Abdominal pain Qualified Codes: R10.30 - Lower abdominal pain, unspecified Disposition: 07 AGAINST MEDICAL ADVICE Condition: Against Medical Advice Departure-Patient Inst. Decision time for Depature: 20:58 Referrals: CASSY NI DO NO,LOCAL PHYSICIAN (PCP) Primary Care Physician Patient Instructions: Endometriosis (DC) Add. Discharge Instructions: Please keep your follow-up appointment with Dr. NI. Return to the ER if you're having significantly worsening pain or other symptoms. All discharge instructions reviewed with patient and/or family. Voiced understanding. MARIA G ROBERTSON 24, 2020 19:22
[2019-12-05 19:25] LABS: BASOPHILS % (AUTO) 0 % (0-10); EOSINOPHILS % (AUTO) 0 % (0-10); HEMATOCRIT 39 % (35-52); HEMOGLOBIN 13.3 G/DL (11.5-16.0); LYMPHOCYTES # (AUTO) 2.6 X 10^3 (1.0-4.0); LYMPHOCYTES % (AUTO) 34 % (12-44); MEAN CORPUSCULAR HEMOGLOBIN 30 PG (25-34); MEAN CORPUSCULAR HGB CONC 34 G/DL (32-36); MEAN CORPUSCULAR VOLUME 87 FL (80-99); MEAN PLATELET VOLUME 9.2 FL (7.4-10.4); MONOCYTES # (AUTO) 0.4 X 10^3 (0.0-1.0); MONOCYTES % (AUTO) 5 % (0-12); NEUTROPHILS # (AUTO) 4.6 X 10^3 (1.8-7.8); NEUTROPHILS % (AUTO) 60 % (42-75); PLATELET COUNT 346 10^3/uL (130-400); RED CELL DISTRIBUTION WIDTH 12.7 % (10.0-14.5); WHITE BLOOD COUNT 7.7 10^3/uL (4.3-11.0)
[2019-12-05 19:44] LABS: ALANINE AMINOTRANSFERASE 9 U/L (0-55); ALBUMIN 4.2 GM/DL (3.2-4.5); ALKALINE PHOSPHATASE 78 U/L (40-136); BUN/CREATININE RATIO 14; CALCIUM 9.5 MG/DL (8.5-10.1); CARBON DIOXIDE 22 MMOL/L (21-32); CHLORIDE 101 MMOL/L (98-107); CREATININE SERUM 0.72 MG/DL (0.60-1.30); GFR ESTIMATED > 60; GLUCOSE 120 MG/DL (70-105); LIPASE 6 U/L (8-78); POTASSIUM 3.4 MMOL/L (3.6-5.0); SODIUM 135 MMOL/L (135-145); TOTAL PROTEIN 6.6 GM/DL (6.4-8.2)
[2019-12-05] MEDS ORDERED: KETAMINE/NaCl 50 MG/5 ML SYRINGE (ED ONLY) IV ONE ×2 (19:45→20:30)
[2019-12-05] MEDS ORDERED: ONDANSETRON 4 MG/2 ML (SDV) Z0FRAN IVP ONE (20:30)
[2019-12-05 20:49] LABS: BILIRUBIN,URINE 1+ (NEGATIVE); CLARITY,URINE CLEAR; COLOR,URINE YELLOW; GLUCOSE, URINE (UA) NEGATIVE (NEGATIVE); KETONES,URINE 3+ (NEGATIVE); LEUKOCYTE ESTERASE ,URINE NEGATIVE (NEGATIVE); NITRITE,URINE NEGATIVE (NEGATIVE); PROTEIN,URINE NEGATIVE (NEGATIVE)
[2019-12-05 20:56] VITALS: BP 121/71
--- NOTE | 2019-12-05 20:56 | NUR ---
2049-PT STATES, "TAKE THIS IV OUT. I'M GOING HOME IF YOU'RE NOT GOING TO TREAT MY PAIN THE WAY I WANT IT." PT WAS ASKED PRIOR TO ADMINISTRATION OF SECOND DOSE OF KETAMINE IF SHE WAS OKAY WITH THE ADMINISTRATION OF THIS DRUG AND SHE STATED YES, THIS WAS AFTER SHE ASKED MULTIPLE TIMES FOR FENTANYL AND DR. ROBERTSON DISCUSSED WITH HER HE WOULD NOT ORDER FENTANYL. PT THREATENED TO LEAVE WITH IV STILL IN PLACE AND WAS NOTIFIED THE POLICE WOULD BE CALLED IF SHE LEFT WITHOUT LETTING STAFF REMOVE HER IV IN WHICH PT STATES, "I'D LIKE TO SEE YOU TRY." 2055-AT THIS TIME KARMEN CLEMENTS PRESENTED TO ROOM AND PT'S IV WAS REMOVED WITHOUT INCIDENT AND AMA FORM SIGNED. DR. ROBERTSON NOTIFIED.
[2019-12-05 21:04] LABS: AMPHETAMINE SCREEN, URINE NEGATIVE (NEGATIVE); BARBITURATE SCREEN URINE NEGATIVE (NEGATIVE); BENZODIAZEPINES SCREEN URINE NEGATIVE (NEGATIVE); CANNABINOID SCREEN, URINE POSITIVE (NEGATIVE); COCAINE SCREEN URINE NEGATIVE (NEGATIVE); METHADONE STAT NEGATIVE (NEGATIVE); METHAMPHETAMINE SCREEN URINE S NEGATIVE (NEGATIVE); OPIATE SCREEN URINE POSITIVE (NEGATIVE); OXYCODONE STAT NEGATIVE (NEGATIVE); PROPOXYPHENE STAT NEGATIVE (NEGATIVE); TRICYCLIC ANTIDEPRESSANTS SCRE NEGATIVE (NEGATIVE)
[2019-12-05 21:15] LABS: BACTERIA,URINE MODERATE /HPF; WBC,URINE RARE /HPF
== END 2019-12-05 20:56 | disposition left against medical advice (07) ==
LOC: EDUNIT# 19:07 → ER 19:09
DX: R10.2 Pelvic and perineal pain (principal); F17.210 Nicotine dependence, cigarettes, uncomplicated; Z90.49 Acquired absence of other specified parts of digestive tract; Z82.49 Family history of ischemic heart disease and other diseases of the circulatory system
CPT/HCPCS: 36415; 80053; 80306; 81000; 83690; 84703; 85025; 86141; 96361; 96365; 96375

== ENCOUNTER 2019-12-17 15:35 | Emergency (ER) | payer MEDICAID ==
[~2019-12-17] VITALS: Ht 162 cm; Wt 65.0 kg
--- NOTE | 2019-12-17 16:41 | ED GI ---
General Chief Complaint: Abdominal/GI Problems Stated Complaint: ABD PAIN Nursing Triage Note: THE PT IS AMBULATORY TO THE ROOM WITHOUT DIFFICULTY. NO DISTRESS IS SEEN ON ARRIVAL. LOC IS NORMAL FOR THE PT. THIS IS A CHRONIC PROBLEM. Sepsis Screen: No Definite Risk Source of Information: Patient Exam Limitations: No Limitations History of Present Illness Date Seen by Provider: Dec 17, 2019 Time Seen by Provider: 16:41 Initial Comments left without being seen Allergies and Home Medications Allergies Coded Allergies: No Known Drug Allergies (Unverified , 01/12/16) Home Medications Capsaicin 42.5 Gm Cream..g., 42.5 GM TP BID apply to anterior abdomen twice a day as needed for pain and vomiting. Prescribed by: ERIKA LEWIS on 10/16/19 1407 Cephalexin 500 Mg Tablet, 500 MG PO BID Prescribed by: MARIA G ROBERTSON on 08/21/18 1722 Docusate Sodium 100 Mg Capsule, 100 MG PO BID PRN for CONSTIPATION-1ST LINE Prescribed by: CASSY NI on 07/22/18 0807 Ferrous Sulfate 325 Mg Tablet, 325 MG PO DAILY@0800 Prescribed by: CASSY NI on 07/22/18 0807 Fluconazole 150 Mg Tablet, 150 MG PO DAILY Prescribed by: ERIKA LEWIS on 11/22/19 1447 Haloperidol 5 Mg Tablet, 5 MG PO BID PRN for CRAMPS For abdominal pain. Do not take with ondansetron. Prescribed by: MYNOR GUILLAUME on 10/17/19 0802 Hydrocodone Bit/Acetaminophen 1 Tab Tab, 1 TAB PO Q4H PRN for PAIN-MODERATE Prescribed by: CASSY NI on 07/22/18 0807 Hydrocodone Bit/Acetaminophen 1 Tab Tab, 1 EACH PO Q4-6HR PRN for PAIN-MODERATE Prescribed by: MARIA G ROBERTSON on 08/23/18 1227 Ibuprofen 600 Mg Tablet, 600 MG PO Q6H Prescribed by: CASSY NI on 07/22/18 0807 Naproxen 500 Mg Tablet, 500 MG PO BID Prescribed by: ERIKA LEWIS on 11/22/19 1450 Ondansetron 4 Mg Tab.rapdis, 4 MG PO Q6H PRN for NAUSEA/VOMITING Prescribed by: MARIA G ROBERTSON on 11/27/18 0427 Ondansetron 4 Mg Tab.rapdis, 4 MG SL Q4H PRN for NAUSEA/VOMITING Prescribed by: DONNA EWING on 07/11/19 1418 Ondansetron 8 Mg Tab.rapdis, 8 MG PO TID Prescribed by: ERIKA LEWIS on 10/16/19 1407 Ondansetron 8 Mg Tab.rapdis, 8 MG PO Q6H PRN for NAUSEA/VOMITING Prescribed by: ERIKA LEWIS on 11/22/19 1503 Ondansetron HCl 4 Mg Tab, 4 MG PO Q4H PRN for NAUSEA/VOMITING-1ST LINE Prescribed by: ERIKA LEWIS on 08/21/18 1534 Ukj093/FA/Omega3/Dha/Fish Oil 1 Each Tab.chew, 2 EACH PO DAILY, (Reported) Potassium Chloride 20 Meq Packet, 20 MEQ PO BID Prescribed by: ERIKA LEWIS on 10/16/19 1408 Prochlorperazine Maleate 25 Mg Supp.rect, 25 MG RC Q6H PRN for NAUSEA/VOMITING- 1ST LINE Prescribed by: MARIA G ROBERTSON on 11/27/18 0427 Prochlorperazine Maleate 25 Mg Supp.rect, 25 MG RC Q6H PRN for NAUSEA/VOMITING- 1ST LINE Prescribed by: MICHA FORTUNE on 12/25/18 2315 Prochlorperazine Maleate 10 Mg Tablet, 10 MG PO TID PRN for NAUSEA/VOMITING Prescribed by: ERIKA LEWIS on 10/16/19 1407 Promethazine HCl 25 Mg Tablet, 25 MG PO Q6H PRN for NAUSEA/VOMITING Prescribed by: MARIA G ROBERTSON on 08/21/18 1722 Promethazine HCl 25 Mg Supp.rect, 25 MG RC Q6H PRN for NAUSEA/VOMITING Prescribed by: MICHA FORTUNE on 12/25/18 2315 Promethazine HCl 25 Mg Supp.rect, 25 MG RC Q8H PRN for NAUSEA/VOMITING-2ND LINE Prescribed by: MARTIN COLLINS on 11/26/19 1239 Tramadol HCl 50 Mg Tablet, 50 MG PO Q8H PRN for PAIN-MODERATE (5-7) Prescribed by: MARTIN COLLINS on 11/26/19 1239 Patient Home Medication List Home Medication List Reviewed: Yes Review of Systems Review of Systems Constitutional: other (left without being seen) Past Rfsaapx-Hpafsb-Hzfvlv Hx Past Med/Social Hx: Reviewed Nursing Past Med/Soc Hx Patient Social History Drug of Choice: cannabis Type Used: Cigarettes 2nd Hand Smoke Exposure: Yes Recent Foreign Travel: No Contact w/Someone Who Travel: No Recent Infectious Disease Expo: No Recent Hopitalizations: No Physical Abuse: No Sexual Abuse: No Mistreated: No Fear: No Immunizations Up To Date Tetanus Booster (TDap): Less than 5yrs PED Vaccines UTD: Yes Date of Pneumonia Vaccine: Nov 12, 2013 Date of Influenza Vaccine: Sep 11, 2015 Seasonal Allergies Seasonal Allergies: No Past Medical History Surgeries: Yes (LAPAROSCOPY-OVARIAN CYST, ENDOMETRIOSIS; EGD) Abdominal, Appendectomy, Gallbladder Respiratory: Yes Asthma, Pneumonia Currently Using CPAP: No Currently Using BIPAP: No Cardiac: No Neurological: No Reproductive Disorders: Yes (LT OVARIAN CYST) Female 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, Ovarian Cyst [employer] WORK[employer] History: IUD Sexually Transmitted Disease: No HIV/AIDS: No Genitourinary: No Gastrointestinal: Yes (CHRONIC ABDOMINAL PAIN, CHRONIC N/V, CANNABIS HYPEREMESIS SYNDROME) Musculoskeletal: No Endocrine: No HEENT: No Cancer: No Psychosocial: Yes Sleep Difficulties, Anxiety, Depression Integumentary: No Blood Disorders: No Adverse Reaction/Blood Tranf: No Family Medical History Reviewed Nursing Family Hx Cancer GPA-DAD SIDE, Onset:Unknown Cataract GMA-DAD SIDE Dementia GPA-DAD SIDE Family history: Arthritis GPA-MOM SIDE Family history: Cardiovascular disease GMA-DAD SIDE (CAD STINTS) GMA-MOM SIDE (ENLARGED HEART DEFIBALATOR AND PACER) History of - respiratory disease GPA-DAD SIDE (EMPHYSEMA, COPD) No Family History of: AIDS Abdominal aortic aneurysm Abdominal aortic aneurysm [place]'s disease Fidel's disease Alcoholism Alcoholism Alzheimer's disease Aphasia Aphasia Arthritis Asthma Cancer of colon Cancer of mouth Cardiovascular disease Cataracts Chest pain Colon cancer Completed stroke Congenital disease Congenital heart disease Congenital heart disease Congestive heart failure Coronary thrombosis Cystic fibrosis Cystic fibrosis Deafness or hearing loss Diabetes mellitus Drug abuse Dysphagia Dysphasia Family history: Allergy Family history: Alzheimer's disease Family history: Asthma Family history: Breast disease Family history: Coronary thrombosis Family history: Diabetes mellitus Family history: Gastrointestinal disease Family history: Glaucoma Family history: Hypertension Family history: Osteoporosis Family history: Thyroid disorder Fibrocystic disease of breast Gastroenteritis Glaucoma Headache Hearing loss Heart disease Hereditary disease History of - anemia History of - disorder History of drug abuse Human immunodeficiency virus (HIV) seropositivity Hypercholesterolemia Hypercholesterolemia Infertile Kidney disease Malignant neoplasm of lung Myocardial infarction Parkinson's disease Prostate cancer Psychotic disorder Seizure disorder Severe allergy Stroke Thyroid disease Tuberculosis Tuberculosis Visual disorder Visual impairment No Pertinent Family Hx Physical Exam Vital Signs Vital Signs - First Documented 12/17/19 12/17/19 15:41 16:53 Temp 36.9 Pulse 113 Resp 16 B/P (MAP) 124/80 (95) Pulse Ox 98 O2 Flow Rate 0 Capillary Refill : Less Than 3 Seconds Height/Weight/BMI Height: 5'1.00" Weight: 115lbs. 0oz. 52.143374eg; 24.00 BMI Method:Stated General Appearance: other (left without being seen) Progress/Results/Core Measures Results/Orders My Orders Orders - ORLANDO QUACH Urine Bedside (12/17/19 16:30) Vital Signs/I&O 12/17/19 12/17/19 15:41 16:53 Temp 36.9 Pulse 113 0 0 Resp 16 0 0 B/P (MAP) 124/80 (95) 0/0 0/0 Pulse Ox 98 0 0 O2 Flow Rate 0 Blood Pressure Mean: 95 Departure Communication (Admissions) Patient left without being seen. Dr. Guillaume notified of patient leaving without being seen. Impression Primary Impression: Patient left without being seen Disposition: 07 AGAINST MEDICAL ADVICE (left without being seen) Condition: Against Medical Advice (left without being seen) Departure-Patient Inst. Referrals: NO,LOCAL PHYSICIAN (PCP/Family) Primary Care Physician ORLANDO QUACH Dec 17, 2019 16:41
[2019-12-17 16:53] VITALS: BP 0/0
== END 2019-12-17 16:53 | disposition left against medical advice (07) ==
LOC: EDUNIT# 15:35 → ER 15:36
DX: R10.9 Unspecified abdominal pain (principal); Z77.22 Contact with and (suspected) exposure to environmental tobacco smoke (acute) (chronic); Z82.49 Family history of ischemic heart disease and other diseases of the circulatory system
CPT/HCPCS: 99282

== ENCOUNTER 2019-12-27 13:11 | Emergency (ER) | payer MEDICAID ==
[~2019-12-27] VITALS: Ht 154.9 cm; Wt 65.0 kg
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
[2019-12-27] MEDS ORDERED: BENZTROPINE 2 MG/2 ML INJ (COGENTIN) AMP IM ONE (14:00)
[2019-12-27 14:41] VITALS: BP 112/80
== END 2019-12-27 14:41 | disposition home or self-care (01) ==
LOC: EDUNIT# 13:11 → ER 13:12
DX: G24.9 Dystonia, unspecified (principal); F12.90 Cannabis use, unspecified, uncomplicated; F17.210 Nicotine dependence, cigarettes, uncomplicated; Z82.49 Family history of ischemic heart disease and other diseases of the circulatory system
CPT/HCPCS: 99284

== ENCOUNTER 2020-06-18 08:20 | Emergency (ER) | payer MEDICAID ==
[~2020-06-18] VITALS: Ht 157 cm; Wt 49.0 kg
[2020-06-18] MEDS ORDERED: LACTATED RINGERS 1,000 ML IV ONE (08:43)
[2020-06-18] MEDS ORDERED: ONDANSETRON 4 MG/2 ML (SDV) Z0FRAN IVP ONE ×2 (08:45→10:45)
[2020-06-18] MEDS ORDERED: diphenhydrAMINE 50 MG/ML INJ (BENADRYL) IVP ONE ×2 (08:45→11:45)
--- NOTE | 2020-06-18 08:53 | ED GI ---
General Chief Complaint: Abdominal/GI Problems Stated Complaint: VOMITING;7 WKS Source of Information: Patient Exam Limitations: No Limitations History of Present Illness Date Seen by Provider: Jun 18, 2020 Time Seen by Provider: 08:35 Initial Comments Patient presents to ER by private conveyance from home with chief complaint that since last night she's had some nausea and vomiting. She did take 4 mg Zofran by mouth without significant relief of symptoms. She has a history of chronic nausea and vomiting related to cannabis hyperemesis syndrome. She is approximately 19 weeks based on an ultrasound from 2 weeks ago from an outside source. She has an upcoming appointment with Dr. NI to establish care for OB. She is a . No fever or chills. Generalized abdominal pain related to vomiting. No diarrhea or constipation. She's been eating ice chips. She denies dysuria. Allergies and Home Medications Allergies Coded Allergies: No Known Drug Allergies (Unverified , 01/12/16) Home Medications Capsaicin 42.5 Gm Cream..g., 42.5 GM TP BID apply to anterior abdomen twice a day as needed for pain and vomiting. Prescribed by: ERIKA LEWIS on 10/16/19 1407 Cephalexin 500 Mg Tablet, 500 MG PO BID Prescribed by: MARIA G ROBERTSON on 08/21/18 1722 Docusate Sodium 100 Mg Capsule, 100 MG PO BID PRN for CONSTIPATION-1ST LINE Prescribed by: CASSY NI on 07/22/18 0807 Ferrous Sulfate 325 Mg Tablet, 325 MG PO DAILY@0800 Prescribed by: CASSY NI on 07/22/18 0807 Fluconazole 150 Mg Tablet, 150 MG PO DAILY Prescribed by: ERIKA LEWIS on 11/22/19 1447 Haloperidol 5 Mg Tablet, 5 MG PO BID PRN for CRAMPS For abdominal pain. Do not take with ondansetron. Prescribed by: MYNOR GUILLAUME on 10/17/19 0802 Hydrocodone Bit/Acetaminophen 1 Tab Tab, 1 TAB PO Q4H PRN for PAIN-MODERATE Prescribed by: CASSY NI on 07/22/18 0807 Hydrocodone Bit/Acetaminophen 1 Tab Tab, 1 EACH PO Q4-6HR PRN for PAIN-MODERATE Prescribed by: MARIA G ROBERTSON on 08/23/18 1227 Ibuprofen 600 Mg Tablet, 600 MG PO Q6H Prescribed by: CASSY NI on 07/22/18 0807 Naproxen 500 Mg Tablet, 500 MG PO BID Prescribed by: ERIKA LEWIS on 11/22/19 1450 Ondansetron 4 Mg Tab.rapdis, 4 MG PO Q6H PRN for NAUSEA/VOMITING Prescribed by: MARIA G ROBERTSON on 11/27/18 0427 Ondansetron 4 Mg Tab.rapdis, 4 MG SL Q4H PRN for NAUSEA/VOMITING Prescribed by: DONNA EWING on 07/11/19 1418 Ondansetron 8 Mg Tab.rapdis, 8 MG PO TID Prescribed by: ERIKA LEWIS on 10/16/19 1407 Ondansetron 8 Mg Tab.rapdis, 8 MG PO Q6H PRN for NAUSEA/VOMITING Prescribed by: ERIKA LEWIS on 11/22/19 1503 Ondansetron HCl 4 Mg Tab, 4 MG PO Q4H PRN for NAUSEA/VOMITING-1ST LINE Prescribed by: ERIKA LEWIS on 08/21/18 1534 Nzs263/FA/Omega3/Dha/Fish Oil 1 Each Tab.chew, 2 EACH PO DAILY, (Reported) Potassium Chloride 20 Meq Packet, 20 MEQ PO BID Prescribed by: ERIKA LEWIS on 10/16/19 1408 Prochlorperazine Maleate 25 Mg Supp.rect, 25 MG RC Q6H PRN for NAUSEA/VOMITING- 1ST LINE Prescribed by: MARIA G ROBERTSON on 11/27/18 0427 Prochlorperazine Maleate 25 Mg Supp.rect, 25 MG RC Q6H PRN for NAUSEA/VOMITING- 1ST LINE Prescribed by: MICHA FORTUNE on 12/25/18 2315 Prochlorperazine Maleate 10 Mg Tablet, 10 MG PO TID PRN for NAUSEA/VOMITING Prescribed by: ERIKA LEWIS on 10/16/19 1407 Promethazine HCl 25 Mg Tablet, 25 MG PO Q6H PRN for NAUSEA/VOMITING Prescribed by: MARIA G ROBERTSON on 08/21/18 1722 Promethazine HCl 25 Mg Supp.rect, 25 MG RC Q6H PRN for NAUSEA/VOMITING Prescribed by: MICHA FORTUNE on 12/25/18 2315 Promethazine HCl 25 Mg Supp.rect, 25 MG RC Q8H PRN for NAUSEA/VOMITING-2ND LINE Prescribed by: MARTIN COLLINS on 11/26/19 1239 Tramadol HCl 50 Mg Tablet, 50 MG PO Q8H PRN for PAIN-MODERATE (5-7) Prescribed by: MARTIN COLLINS on 11/26/19 1239 Patient Home Medication List Home Medication List Reviewed: Yes Review of Systems Review of Systems Constitutional: No chills, No fever, No malaise EENTM: No Blurred Vision, No Double Vision Respiratory: Denies Cough, Denies Shortness of Air Cardiovascular: Denies Chest Pain, Denies Edema Gastrointestinal: See HPI, Abdominal Pain; Denies Constipated, Denies Diarrhea; Nausea, Poor Fluid Intake, Vomiting Genitourinary: Denies Burning, Denies Discharge Musculoskeletal: No back pain, No joint pain Skin: No pruritus, No rash Psychiatric/Neurological: Denies Headache, Denies Numbness, Denies Paresthesia All Other Systems Reviewed Negative Unless Noted: Yes Past Lcuwntq-Mvqttf-Jquyuz Hx Patient Social History Alcohol Use: Denies Use Recreational Drug Use: Yes Drug of Choice: cannabis Smoking Status: Current Everyday Smoker Type Used: Cigarettes 2nd Hand Smoke Exposure: Yes Recent Foreign Travel: No Contact w/Someone Who Travel: No Recent Hopitalizations: No Immunizations Up To Date Tetanus Booster (TDap): Less than 5yrs PED Vaccines UTD: Yes Date of Pneumonia Vaccine: Nov 12, 2013 Date of Influenza Vaccine: Sep 11, 2015 Seasonal Allergies Seasonal Allergies: No Past Medical History Surgeries: Yes (LAPAROSCOPY-OVARIAN CYST, ENDOMETRIOSIS; EGD) Abdominal, Appendectomy, Gallbladder Respiratory: Yes Asthma, Pneumonia Currently Using CPAP: No Currently Using BIPAP: No Cardiac: No Neurological: No Reproductive Disorders: Yes (LT OVARIAN CYST) Female 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, Ovarian Cyst 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 SPECIALIST History: IUD Sexually Transmitted Disease: No HIV/AIDS: No Genitourinary: No Gastrointestinal: Yes (CHRONIC ABDOMINAL PAIN, CHRONIC N/V, CANNABIS HYPEREMESIS SYNDROME) Musculoskeletal: No Endocrine: No HEENT: No Cancer: No Psychosocial: Yes Sleep Difficulties, Anxiety, Depression Integumentary: No Blood Disorders: No Adverse Reaction/Blood Tranf: No Family Medical History Cancer GPA-DAD SIDE, Onset:Unknown Cataract GMA-DAD SIDE Dementia GPA-DAD SIDE Family history: Arthritis GPA-MOM SIDE Family history: Cardiovascular disease GMA-DAD SIDE (CAD STINTS) GMA-MOM SIDE (ENLARGED HEART DEFIBALATOR AND PACER) History of - respiratory disease GPA-DAD SIDE (EMPHYSEMA, COPD) No Family History of: AIDS Abdominal aortic aneurysm Abdominal aortic aneurysm Fidel's disease Fidel's disease Alcoholism Alcoholism Alzheimer's disease Aphasia Aphasia Arthritis Asthma Cancer of colon Cancer of mouth Cardiovascular disease Cataracts Chest pain Colon cancer Completed stroke Congenital disease Congenital heart disease Congenital heart disease Congestive heart failure Coronary thrombosis Cystic fibrosis Cystic fibrosis Deafness or hearing loss Diabetes mellitus Drug abuse Dysphagia Dysphasia Family history: Allergy Family history: Alzheimer's disease Family history: Asthma Family history: Breast disease Family history: Coronary thrombosis Family history: Diabetes mellitus Family history: Gastrointestinal disease Family history: Glaucoma Family history: Hypertension Family history: Osteoporosis Family history: Thyroid disorder Fibrocystic disease of breast Gastroenteritis Glaucoma Headache Hearing loss Heart disease Hereditary disease History of - anemia History of - disorder History of drug abuse Human immunodeficiency virus (HIV) seropositivity Hypercholesterolemia Hypercholesterolemia Infertile Kidney disease Malignant neoplasm of lung Myocardial infarction Parkinson's disease Prostate cancer Psychotic disorder Seizure disorder Severe allergy Stroke Thyroid disease Tuberculosis Tuberculosis Visual disorder Visual impairment No Pertinent Family Hx Physical Exam Vital Signs Vital Signs - First Documented 06/18/20 08:35 Pulse 90 Resp 16 B/P (MAP) 122/87 (99) Pulse Ox 97 O2 Delivery Room Air Capillary Refill : Height/Weight/BMI Height: 5'1.00" Weight: 115lbs. 0oz. 52.226048la; 21.00 BMI Method:Stated General Appearance: WD/WN, mild distress, thin HEENT: PERRL/EOMI; No pharynx normal (oropharynx mucosa is mildly dry) Neck: full range of motion, normal inspection Respiratory: lungs clear, normal breath sounds, no respiratory distress, no accessory muscle use Cardiovascular: normal peripheral pulses, regular rate, rhythm Peripheral Pulses: 2+ Radial Pulses (R), 2+ Radial Pulses (L) Gastrointestinal: normal bowel sounds; No non tender; soft, tenderness ( generalized all 4 quadrants without rebound tenderness mesenteric signs, psoas sign, heel taps tenderness area and) Extremities: normal inspection, no pedal edema, normal capillary refill Back: normal inspection, no CVA tenderness Neurologic/Psychiatric: alert, normal mood/affect, oriented x 3 Skin: normal color, warm/dry Progress/Results/Core Measures Results/Orders Lab Results Laboratory Tests Test 06/18/20 09:00 06/18/20 10:34 Range/Units White Blood Count 10.6 4.3-11.0 10^3/uL Red Blood Count 4.77 4.35-5.85 10^6/uL Hemoglobin 13.4 11.5-16.0 G/DL Hematocrit 39 35-52 % Mean Corpuscular Volume 81 80-99 FL Mean Corpuscular Hemoglobin 28 25-34 PG Mean Corpuscular Hemoglobin Concent 35 32-36 G/DL Red Cell Distribution Width 13.1 10.0-14.5 % Platelet Count 398 130-400 10^3/uL Mean Platelet Volume 9.4 7.4-10.4 FL Neutrophils (%) (Auto) 91 H 42-75 % Lymphocytes (%) (Auto) 7 L 12-44 % Monocytes (%) (Auto) 1 0-12 % Eosinophils (%) (Auto) 0 0-10 % Basophils (%) (Auto) 0 0-10 % Neutrophils # (Auto) 9.7 H 1.8-7.8 X 10^3 Lymphocytes # (Auto) 0.8 L 1.0-4.0 X 10^3 Monocytes # (Auto) 0.1 0.0-1.0 X 10^3 Eosinophils # (Auto) 0.0 0.0-0.3 10^3/uL Basophils # (Auto) 0.0 0.0-0.1 10^3/uL Neutrophils % (Manual) 98 % Lymphocytes % (Manual) 2 % Monocytes % (Manual) 0 % Eosinophils % (Manual) 0 % Basophils % (Manual) 0 % Band Neutrophils 0 % Blood Morphology Comment NORMAL Sodium Level 134 L 135-145 MMOL/L Potassium Level 3.7 3.6-5.0 MMOL/L Chloride Level 103 98-107 MMOL/L Carbon Dioxide Level 13 L 21-32 MMOL/L Anion Gap 18 H 5-14 MMOL/L Blood Urea Nitrogen 6 L 7-18 MG/DL Creatinine 0.73 0.60-1.30 MG/DL Estimat Glomerular Filtration Rate > 60 BUN/Creatinine Ratio 8 Glucose Level 115 H 70-105 MG/DL Calcium Level 9.7 8.5-10.1 MG/DL Corrected Calcium 9.3 8.5-10.1 MG/DL Phosphorus Level 4.1 2.3-4.7 MG/DL Magnesium Level 1.5 L 1.6-2.4 MG/DL Total Bilirubin 0.6 0.1-1.0 MG/DL Aspartate Amino Transf (AST/SGOT) 17 5-34 U/L Alanine Aminotransferase (ALT/SGPT) 15 0-55 U/L Alkaline Phosphatase 57 40-136 U/L C-Reactive Protein High Sensitivity 0.10 0.00-0.50 MG/DL Total Protein 7.6 6.4-8.2 GM/DL Albumin 4.5 3.2-4.5 GM/DL Urine Color YELLOW Urine Clarity SL CLOUDY Urine pH 6.0 5-9 Urine Specific [place] >=1.030 1.016-1.022 Urine Protein NEGATIVE NEGATIVE Urine Glucose (UA) NEGATIVE NEGATIVE Urine Ketones 3+ H NEGATIVE Urine Nitrite NEGATIVE NEGATIVE Urine Bilirubin NEGATIVE NEGATIVE Urine Urobilinogen 0.2 < = 1.0 MG/DL Urine Leukocyte Esterase NEGATIVE NEGATIVE Urine RBC (Auto) NEGATIVE NEGATIVE Urine RBC NONE /HPF Urine WBC NONE /HPF Urine Squamous Epithelial Cells 10-25 H /HPF Urine Crystals NONE /LPF Urine Bacteria TRACE /HPF Urine Casts NONE /LPF Urine Mucus NEGATIVE /LPF Urine Culture Indicated NO My Orders Orders - MARIA G ROBERTSON Ed Iv/Invasive Line Start (06/18/20 08:43) Lactated Ringers (Lr 1000 Ml Iv Solution (06/18/20 08:43) Magnesium (06/18/20 08:43) Cbc With Automated Diff (06/18/20 08:43) Comprehensive Metabolic Panel (06/18/20 08:43) Hs C Reactive Protein (06/18/20 08:43) Ua Culture If Indicated (06/18/20 08:43) Urine Bedside (06/18/20 08:43) Phosphorus (06/18/20 08:43) Diphenhydramine Injection (Benadryl Inje (06/18/20 08:45) Ondansetron Injection (Zofran Injectio (06/18/20 08:45) Thiamine Injection (Vitamin B-1 Injectio (06/18/20 09:00) Famotidine Injection (Pepcid Injection) (06/18/20 09:00) Manual Differential (06/18/20 09:00) Ondansetron Injection (Zofran Injectio (06/18/20 10:45) Promethazine Injection (Phenergan Injec (06/18/20 10:45) Ed Iv/Invasive Line Start (06/18/20 11:29) Ns Iv 500 Ml (Sodium Chloride 0.9%) (06/18/20 11:29) Diphenhydramine Injection (Benadryl Inje (06/18/20 11:45) Methylprednisolone Sod Succ (Solu-Medrol (06/18/20 11:45) Medications Given in ED Current Medications Medications Dose Ordered Sig/Dani Route Start Time Stop Time Status Last Admin Dose Admin Diphenhydramine HCl 25 mg ONCE ONCE IVP 06/18/20 08:45 06/18/20 08:48 DC 06/18/20 09:00 25 MG Famotidine 20 mg ONCE ONCE IVP 06/18/20 09:00 06/18/20 09:01 DC 06/18/20 09:00 20 MG Lactated Ringer's 1,000 ml @ 0 mls/hr Q0M ONCE IV 06/18/20 08:43 06/18/20 08:48 DC 06/18/20 09:00 1,000 MLS/HR Ondansetron HCl 4 mg ONCE ONCE IVP 06/18/20 10:45 06/18/20 10:46 DC 06/18/20 10:45 4 MG Ondansetron HCl 8 mg ONCE ONCE IVP 06/18/20 08:45 06/18/20 08:48 DC 06/18/20 09:00 8 MG Promethazine HCl 25 mg ONCE ONCE IVP 06/18/20 10:45 06/18/20 10:46 DC 06/18/20 10:45 25 MG Sodium Chloride 500 ml @ 0 mls/hr Q0M ONCE IV 06/18/20 11:29 06/18/20 11:30 DC 06/18/20 11:37 500 MLS/HR Thiamine HCl 100 mg ONCE ONCE IV 06/18/20 09:00 06/18/20 09:01 DC 06/18/20 09:00 100 MG Vital Signs/I&O 06/18/20 08:35 Pulse 90 Resp 16 B/P (MAP) 122/87 (99) Pulse Ox 97 O2 Delivery Room Air Progress Progress Note #1: Time: 08:52 Progress Note Plan to rehydrate her with lactated Ringer's, IV thiamine, Benadryl, 8 mg Zofran and check electrolytes and labs as well as urinalysis. If this does not help then we may try glucocorticoids. Progress Note #2: Time: 11:38 Progress Note Patient did not receive a lot of benefit from the Phenergan and Zofran however she has not had any vomiting since being here. We are going to give her little more Benadryl and try low-dose of glucocorticoids. 40 mg Solu-Medrol followed by 20 mg daily for the next 3 days. We have discussed the risks of using steroids in first trimester and patient is okay with this. We did offer Haldol which she declined with a history of lockjaw. Plan to put her out on ondansetron, pyridoxine, doxylamine and follow-up with OB. She has been given another 500 cc of normal saline for a total of 1500 cc. She's 120 pounds. Departure Impression Primary Impression: Nausea and vomiting during prior to 22 weeks gestation Disposition: 01 HOME, SELF-CARE Condition: Stable Departure-Patient Inst. Decision time for Depature: 11:30 Referrals: CASSY NI,LOCAL PHYSICIAN (PCP) Primary Care Physician Patient Instructions: Nausea and Vomiting of (DC) Add. Discharge Instructions: Start taking the doxylamine 20 mg and pyridoxine 20 mg at bedtime for the next 4 weeks. Ondansetron one to 2 tablets every 6 hours as necessary for breakthrough nausea. Stick to a bland, brat diet of bananas, rice, applesauce and toast. Follow-up with your lining cutter. All discharge instructions reviewed with patient and/or family. Voiced understanding. Scripts Prednisone (Prednisone) 20 Mg Tab 20 MG PO DAILY for 3 Days, #3 TAB 0 Refills Prov: MARIA G ROBERTSON 06/18/20 Doxylamine Succinate/Vit B6 (Doxylamine-Pyridoxine 10-10 mg) 1 Each Tablet.dr 2 EACH PO HS for 30 Days, #60 TAB 0 Refills Prov: MARIA G ROBERTSON 06/18/20 Ondansetron (Ondansetron Odt) 4 Mg Tab.rapdis 4 MG PO Q6H PRN for NAUSEA/VOMITING, #20 TAB 0 Refills Prov: MARIA G ROBERTSON 06/18/20 Copy Copies To 1: CASSY NI TITUS J Jun 18, 2020:53
[2020-06-18] MEDS ORDERED: FAMOTIDINE 20MG/2ML IV (PEPCID) IVP ONE (09:00)
[2020-06-18] MEDS ORDERED: THIAMINE 100 MG/ML 2 ML (VITAMIN B-1) VIAL IV ONE (09:00)
[2020-06-18 09:07] LABS: BASOPHILS % (AUTO) 0 % (0-10); EOSINOPHILS % (AUTO) 0 % (0-10); HEMATOCRIT 39 % (35-52); HEMOGLOBIN 13.4 G/DL (11.5-16.0); LYMPHOCYTES # (AUTO) 0.8 X 10^3 (1.0-4.0); LYMPHOCYTES % (AUTO) 7 % (12-44); MEAN CORPUSCULAR HEMOGLOBIN 28 PG (25-34); MEAN CORPUSCULAR HGB CONC 35 G/DL (32-36); MEAN CORPUSCULAR VOLUME 81 FL (80-99); MEAN PLATELET VOLUME 9.4 FL (7.4-10.4); MONOCYTES # (AUTO) 0.1 X 10^3 (0.0-1.0); MONOCYTES % (AUTO) 1 % (0-12); NEUTROPHILS # (AUTO) 9.7 X 10^3 (1.8-7.8); NEUTROPHILS % (AUTO) 91 % (42-75); PLATELET COUNT 398 10^3/uL (130-400); WHITE BLOOD COUNT 10.6 10^3/uL (4.3-11.0)
[2020-06-18 09:24] LABS: ALBUMIN 4.5 GM/DL (3.2-4.5); CHLORIDE 103 MMOL/L (98-107); POTASSIUM 3.7 MMOL/L (3.6-5.0); SODIUM 134 MMOL/L (135-145)
[2020-06-18 09:25] LABS: CALCIUM 9.7 MG/DL (8.5-10.1)
[2020-06-18 09:27] LABS: GLUCOSE 115 MG/DL (70-105); TOTAL PROTEIN 7.6 GM/DL (6.4-8.2)
[2020-06-18 09:28] LABS: BILIRUBIN,TOTAL 0.6 MG/DL (0.1-1.0); CARBON DIOXIDE 13 MMOL/L (21-32)
[2020-06-18 09:30] LABS: ALKALINE PHOSPHATASE 57 U/L (40-136); CREATININE SERUM 0.73 MG/DL (0.60-1.30); GFR ESTIMATED > 60; PHOSPHORUS 4.1 MG/DL (2.3-4.7)
[2020-06-18 09:31] LABS: BUN/CREATININE RATIO 8
[2020-06-18 09:33] LABS: ALANINE AMINOTRANSFERASE 15 U/L (0-55)
[2020-06-18 09:34] LABS: MAGNESIUM 1.5 MG/DL (1.6-2.4)
[2020-06-18] MEDS ORDERED: PROMETHAZINE INJ 25 MG/ML (PHENERGAN) AMP IVP ONE (10:45)
--- NOTE | 2020-06-18 10:49 | NUR ---
PT VOMITED A SMALL AMOUNT.
--- NOTE | 2020-06-18 11:05 | NUR ---
CARE ASSUMED AT THIS TIME; PT C/O NAUSEA. ERP AWARE.
[2020-06-18 11:06] LABS: BILIRUBIN,URINE NEGATIVE (NEGATIVE); CLARITY,URINE SL CLOUDY; COLOR,URINE YELLOW; GLUCOSE, URINE (UA) NEGATIVE (NEGATIVE); KETONES,URINE 3+ (NEGATIVE); LEUKOCYTE ESTERASE ,URINE NEGATIVE (NEGATIVE); NITRITE,URINE NEGATIVE (NEGATIVE); PROTEIN,URINE NEGATIVE (NEGATIVE)
[2020-06-18 11:14] LABS: BACTERIA,URINE TRACE /HPF
[2020-06-18 11:16] LABS: BAND NEUTROPHILS 0 %; BASOPHILS % (MANUAL) 0 %; EOSINOPHILS % (MANUAL) 0 %; LYMPHOCYTES % (MANUAL) 2 %; MONOCYTES % (MANUAL) 0 %; NEUTROPHILS % (MANUAL) 98 %; RBC MORPH NORMAL
[2020-06-18] MEDS ORDERED: NS IV 500 ML 500 ML IV ONE (11:29)
[2020-06-18] MEDS ORDERED: PRD20T PO (11:44)
[2020-06-18] MEDS ORDERED: DOXY1TAB8 PO (11:44)
[2020-06-18] MEDS ORDERED: ONDA4TAB11 PO (11:44)
[2020-06-18] MEDS ORDERED: methylPREDNISolone 40 MG/ML (Solu-MEDROL) VIAL IV ONE (11:45)
[2020-06-18 12:26] VITALS: BP 130/93
== END 2020-06-18 12:25 | disposition home or self-care (01) ==
LOC: EDUNIT# 08:20 → ER 08:22
DX: O26.892 Other specified pregnancy related conditions, second trimester (principal); R11.2 Nausea with vomiting, unspecified; F41.9 Anxiety disorder, unspecified; F17.210 Nicotine dependence, cigarettes, uncomplicated; Z82.49 Family history of ischemic heart disease and other diseases of the circulatory system; Z80.9 Family history of malignant neoplasm, unspecified; Z3A.00 Weeks of gestation of pregnancy not specified
CPT/HCPCS: 36415; 80053; 81000; 83735; 84100; 84703; 85007; 85027; 86141

== ENCOUNTER 2020-07-24 13:42 | Emergency (ER) | payer MEDICAID ==
[~2020-07-24 13:42] MED LIST changes: -CAPS42.513 TP; +CAPS42.514 TP; +DOXY1TAB8 PO; +PANT20TA18 PO; -PANT20TA3 PO
== END 2020-07-24 16:13 | disposition left against medical advice (07) ==
LOC: EDUNIT# 13:42 → ER 13:44
DX: R11.10 Vomiting, unspecified (principal); R10.9 Unspecified abdominal pain

== ENCOUNTER → 2020-09-04 | Outpatient (CLI) | payer MEDICAID ==
--- NOTE | 2020-09-04 12:13 | Diagnostic Imaging Report ---
INDICATION: Anatomical survey TECHNIQUE: Multiple real-time grayscale images were obtained over the gravid uterus. COMPARISON: None FINDINGS: Rodriguez viable IUP was in breech position with an anterior placenta showing no abruption or previa. Heart rate 138 bpm. Normal volume of amniotic fluid and unremarkable anatomical survey. Measurements correlate with an age 19 weeks 0 day sonographic date of confinement 01/29/2021. IMPRESSION: 19 week 0 day rodriguez viable IUP in breech position with normal anatomical survey. Biometrical measurements are as follows: Biparietal 4.12 cm, age 18 weeks 4 days. Head circumference 16.15 cm, age 19 weeks 0 days. Abdominal circumference 13.96 cm, age 19 weeks 3 days. Femur length 2.91 cm, age 19 weeks 0 days. Sonographic estimate age: 19 weeks 0 days. Sonographic estimated date of delivery: 01/29/2021. Estimated Weight: 275 gm (+/- 40 gm). LMP percentile: 17%. heart rate: 138 beats per minute. number: 1 of 1. IMPRESSION: Dictated by: Dictated on workstation # [id number]
== END ==
LOC: RAD 09:54
PROVIDERS: ATTEND Obstetrics & Gynecology
DX: O32.1XX0 Maternal care for breech presentation, not applicable or unspecified (principal); Z3A.19 19 weeks gestation of pregnancy
CPT/HCPCS: 76805

== ENCOUNTER 2021-01-21 01:58 | Inpatient (IN) | payer MEDICAID ==
[2021-01-21] VITALS (26 sets, daily range): BP systolic 93–143; BP diastolic 53–95
[~2021-01-21] VITALS: Ht 154.9 cm; Wt 68.9 kg
[~2021-01-21 01:58] MED LIST changes: -CLIN300C11 PO; +CLIN300C12 PO
[2021-01-21] MEDS ORDERED: D5 LR IV SOLUTION 1,000 ML IV SCH (02:15)
[2021-01-21] MEDS ORDERED: MINERAL OIL CONCENTRATE 99.9% 15 ML UDC TOP PRN (02:15)
[2021-01-21 02:44] LABS: BILIRUBIN,URINE NEGATIVE (NEGATIVE); CLARITY,URINE CLEAR; COLOR,URINE YELLOW; GLUCOSE, URINE (UA) NEGATIVE (NEGATIVE); KETONES,URINE NEGATIVE (NEGATIVE); LEUKOCYTE ESTERASE ,URINE 1+ (NEGATIVE); NITRITE,URINE NEGATIVE (NEGATIVE); PROTEIN,URINE TRACE (NEGATIVE)
[2021-01-21 02:47] LABS: BACTERIA,URINE FEW /HPF; SQUAMOUS EPITHELIAL CELL,UR 25-50 /HPF; WBC,URINE 25-50 /HPF
[2021-01-21 02:53] LABS: BASOPHILS # (AUTO) 0.1 10^3/uL (0.0-0.1); BASOPHILS % (AUTO) 0 % (0-10); EOSINOPHILS # (AUTO) 0.1 10^3/uL (0.0-0.3); EOSINOPHILS % (AUTO) 1 % (0-10); HEMATOCRIT 30 % (35-52); HEMOGLOBIN 9.5 g/dL (11.5-16.0); LYMPHOCYTES # (AUTO) 2.6 10^3/uL (1.0-4.0); LYMPHOCYTES % (AUTO) 20 % (12-44); MEAN CORPUSCULAR HEMOGLOBIN 25 pg (25-34); MEAN CORPUSCULAR HGB CONC 32 g/dL (32-36); MEAN CORPUSCULAR VOLUME 78 fL (80-99); MEAN PLATELET VOLUME 10.6 fL (9.0-12.2); MONOCYTES # (AUTO) 0.5 10^3/uL (0.0-1.0); MONOCYTES % (AUTO) 4 % (0-12); NEUTROPHILS # (AUTO) 9.3 10^3/uL (1.8-7.8); NEUTROPHILS % (AUTO) 74 % (42-75); PLATELET COUNT 213 10^3/uL (130-400); WHITE BLOOD COUNT 12.5 10^3/uL (4.3-11.0)
[2021-01-21] MEDS ORDERED: BUPR8TAB SL (03:11)
[2021-01-21] MEDS ORDERED: fentaNYL 2 mcg/ml BUPIVA 0.125 100 ML ONE (03:38)
[2021-01-21] MEDS ORDERED: BUPIVACAINE 0.25% 30 ML (SENSORCAINE) VIAL ONE (03:58)
[2021-01-21] MEDS ORDERED: fentaNYL INJ 100 MCG/2 ML AMP ONE (03:58)
[2021-01-21] MEDS ORDERED: ONDANSETRON 4 MG/2 ML (SDV) Z0FRAN ONE (04:17)
[2021-01-21] MEDS ORDERED: diphenhydrAMINE 50 MG/ML INJ (BENADRYL) IV PRN (05:00)
[2021-01-21] MEDS ORDERED: NALOXONE 0.4 MG/ML 1 ML (NARCAN) VIAL IV PRN ×2 (05:00)
[2021-01-21] MEDS ORDERED: METOCLOPRAMIDE INJ 10 MG/2 ML (REGLAN) IV PRN (05:00)
[2021-01-21] MEDS ORDERED: EPIDURAL (fentaNYL 2 MCG/ML BUPIVA 0.125%)100 ML BAG EPI PRN (05:00)
[2021-01-21] MEDS ORDERED: ONDANSETRON 4 MG/2 ML (SDV) Z0FRAN IV PRN (05:00)
[2021-01-21] MEDS ORDERED: LACTATED RINGERS 1,000 ML IV SCH (05:00)
[2021-01-21] MEDS ORDERED: OXYTOCIN PRE-MIX DRIP 500 ML IV ONE (05:17)
[2021-01-21] MEDS ORDERED: LIDOCAINE 1% INJ 20 ML 20 ML VIAL ONE (05:17)
[2021-01-21] MEDS ORDERED: LIDOCAINE/EPI 2% 1:200,00 (XYLOCAINE) 20 ML VIAL ONE (05:18)
[2021-01-21] MEDS ORDERED: CATHETER FLUSH 10 ML SYR IV SCH ×2 (06:00→14:00)
[2021-01-21] MEDS ORDERED: MEASLES,MUMPS,RUBELLA 1 EA INJ SQ ONE (06:30)
[2021-01-21] MEDS ORDERED: WITCH HAZEL(TUCKS) 40 EA JAR TOP PRN (06:30)
[2021-01-21] MEDS ORDERED: DIBUCAINE 1% OINTMENT 30 GM TUBE TOP PRN (06:30)
[2021-01-21] MEDS ORDERED: BENZOCAINE/MENTHOL (DERMOPLAST) 56 ML CAN TP PRN (06:30)
[2021-01-21] MEDS ORDERED: TETANUS,DIPTH,PERTUSS P/F (BOOSTRIX) 0.5 ML VIAL IM ONE (06:30)
--- NOTE | 2021-01-21 06:30 | History & Physical-OB ---
OB - Chief Complaint & HPI Date/Time Date of Admission: Date of Admission: Jan 21, 2021 at 02:05 Date seen by a Provider: Jan 21, 2021 Time Seen by a Provider: 05:55 Chief Complaint/History OB-Reason for Admission/Chief: Onset of Labor Hx : 2 Hx Para: 1 Expected Date of Delivery: Jan 24, 2021 Gestational Age in Weeks: 39 Gestational Age in Days: 4 Admission Nurse Assessment Rev: Yes Allergies and Home Medications Allergies Coded Allergies: No Known Drug Allergies (Unverified , 01/12/16) Home Medications Buprenorphine HCl 8 Mg Tab.subl, 8 MG SL QID, (Reported) Patient Home Medication List Home Medication List Reviewed: Yes OB - History Hx of Present Care: Yes Ultrasounds: Normal mid trimester US Obstetrical Complications: None Medical Complications: None Other Concerns: Hx of narcotic use for chronic pain, [facility] [place] [place]. Patient is on daily suboxone throughout the . Delivery History Hx Blood Disorders: No Adverse Rxn to Tranfusion: No Patient Past Medical History Past medical history 1. Cyclic vomiting syndrome versus cannabis hyperemesis 2. History of exercised induced asthma 3. Chronic anxiety and depression 4. Candidiasis of the esophagus 5. Noncompliance with medical therapy 6. Cannabis abuse Past surgical history 1. Multiple EGDs 2. Appendectomy 3. Cholecystectomy 4. Laparoscopic paratubal cystectomies with removal of endometriosis Social History/Family History 2nd Hand Smoke Exposure: Yes Immunizations Hepatitis A: No Hepatitis B: No Tetanus Booster (TDap): Less than 5yrs Date of Pneumonia Vaccine: Nov 12, 2013 Date of Influenza Vaccine: Sep 11, 2015 OB - Admission Exam Physical Exam Vitals: Vital Signs 01/21/21 01/21/21 04:28 05:15 Temp 36.6 Pulse 82 B/P (MAP) 117/59 (78) Pulse Ox 100 HEENT: NCAT Heart: Rhythm Normal Lungs: Clear Abdomen: Gravid Extremities: Normal Reflexes: Normal Cervical Dilatation: 3cm Effacement: 75% Station: -1 Membranes: Ruptured Amniotic Fluid: Clear Heart Rate: 130's Accelerations: Accelerations Present Decelerations: Variable Decelerations Short Term Variability: Present Forensic Sergeant Variability: Average (6-25) Contractions on Admission: < 5 Minutes Apart Intensity: Firm Labs Laboratory Tests Test 01/21/21 02:20 01/21/21 02:35 Range/Units Urine Color YELLOW Urine Clarity CLEAR Urine pH 7.0 5-9 Urine Specific [place] <=1.005 1.016-1.022 Urine Protein TRACE H NEGATIVE Urine Glucose (UA) NEGATIVE NEGATIVE Urine Ketones NEGATIVE NEGATIVE Urine Nitrite NEGATIVE NEGATIVE Urine Bilirubin NEGATIVE NEGATIVE Urine Urobilinogen 0.2 < = 1.0 MG/DL Urine Leukocyte Esterase 1+ H NEGATIVE Urine RBC (Auto) 1+ H NEGATIVE Urine RBC 2-5 H /HPF Urine WBC 25-50 H /HPF Urine Squamous Epithelial Cells 25-50 H /HPF Urine Crystals NONE /LPF Urine Bacteria FEW H /HPF Urine Casts NONE /LPF Urine Mucus NEGATIVE /LPF Urine Culture Indicated YES White Blood Count 12.5 H 4.3-11.0 10^3/uL Red Blood Count 3.84 3.80-5.11 10^6/uL Hemoglobin 9.5 L 11.5-16.0 g/dL Hematocrit 30 L 35-52 % Mean Corpuscular Volume 78 L 80-99 fL Mean Corpuscular Hemoglobin 25 25-34 pg Mean Corpuscular Hemoglobin Concent 32 32-36 g/dL Red Cell Distribution Width 14.7 H 10.0-14.5 % Platelet Count 213 130-400 10^3/uL Mean Platelet Volume 10.6 9.0-12.2 fL Immature Granulocyte % (Auto) 0 % Neutrophils (%) (Auto) 74 42-75 % Lymphocytes (%) (Auto) 20 12-44 % Monocytes (%) (Auto) 4 0-12 % Eosinophils (%) (Auto) 1 0-10 % Basophils (%) (Auto) 0 0-10 % Neutrophils # (Auto) 9.3 H 1.8-7.8 10^3/uL Lymphocytes # (Auto) 2.6 1.0-4.0 10^3/uL Monocytes # (Auto) 0.5 0.0-1.0 10^3/uL Eosinophils # (Auto) 0.1 0.0-0.3 10^3/uL Basophils # (Auto) 0.1 0.0-0.1 10^3/uL Immature Granulocyte # (Auto) 0.1 0.0-0.1 10^3/uL OB - Assessment/Plan/Diagnosis Assessment Assessment: active labor Admission Dx 25 yo @ 39 weeks Pain management in suboxone use GBS neg Admission Status: Inpatient Order (span 2 midnights) Reason for Inpatient Admission: 39 week IUP, in active labor Plan Plan: Expectant Management CASSY NI DO Jan 21, 2021 06:30
--- NOTE | 2021-01-21 06:34 | OB Labor & Delivery Record ---
L&D History Date of Service Date of Service: Jan 21, 2021 History Expected Date of Delivery: Jan 24, 2021 Gestational Age in Weeks: 39 Hx : 2 Hx Para: 1 Complications Events: Routine care (suboxone use in ) Operative Indications (Cesarea: N/A-Vaginal Delivery Other Complications Recurrent deep variables in late 1st stage, and 2nd stage labor L&D Stage1 Stage One Onset of Labor - Date: Jan 21, 2021 Monitors and Tracing Monitor Mode: External Heart Rate: 120 Monitor Accelerations: Uniform Monitor Decelerations: Variable Station: -1 Usp Variability: Average (6-10) Short Term Variability: Present Vital Signs VS - Last 72 Hours, by Label 01/21/21 01/21/21 01/21/21 01/21/21 02:10 02:10 03:34 03:39 Temp 36.4 36.4 Pulse 99 99 100 99 Resp 18 18 B/P (MAP) 126/75 (92) 133/93 (106) 143/84 (103) Pulse Ox 98 98 O2 Delivery Room Air Room Air 01/21/21 01/21/21 01/21/21 01/21/21 03:44 03:50 03:54 04:00 Pulse 86 93 123 115 B/P (MAP) 143/81 (101) 120/68 (85) 128/90 (103) 141/84 (103) 01/21/21 01/21/21 01/21/21 01/21/21 04:04 04:15 04:20 04:24 Pulse 129 108 100 106 B/P (MAP) 128/95 (106) 143/79 (100) 131/73 (92) Pulse Ox 99 100 98 98 01/21/21 01/21/21 01/21/21 01/21/21 04:28 04:30 04:34 04:39 Temp 36.6 Pulse 73 79 85 96 B/P (MAP) 132/63 (86) 127/76 (93) 139/73 (95) Pulse Ox 97 97 98 99 01/21/21 01/21/21 01/21/21 04:45 05:00 05:15 Pulse 79 82 B/P (MAP) 128/74 (92) 117/59 (78) Pulse Ox 100 100 Rupture of Membranes Spontaneous Ruture of Membrane: Yes Amniotic Membrane Rupture Time: 010 Amniotic Membrane Fluid Desc.: Clear Vaginal Bleeding Description: Normal Show Induction/Anesthesia Epidural Cath Placement - Time: 8 Progress/Notes Patient admitted in active labor. Epidural placed. Patient progressed with no augmentation to complete and +2 station L&D Stage2 Stage Two Stage II Date: Jan 21, 2021 Monitors and Tracing Monitor Mode: External Heart Rate: 120 Monitor Accelerations: None Monitor Decelerations: Variable Associate Artistic Director Variability: Average (6-10) Short Term Variability: Present Position: Right Occiput Anterior Presentation: Vertex Signs of Distress by FHT Signs of Distress deep variable decelerations, recurrent. Cord Descript/Complications Cord Vessel Description: 3 Vessels Complications nuchal reduced x 1 Delivery Type Delivery Method: Spontaneous Vaginal Anterior Shoulder: Left Episiotomy/Perineal Laceration Laceraction(s)/Extensions: Yes Degree (describe repair) bilateral periurethral lacerations repaired using 3-0 [place] Condition of Infant Delivery 1 minute Comment: 8 5 minute Comment: 9 Notes Live female infant weight 5lbs 13 oz Condition of Infant Condition of : Living Exam: No Observed Abnormalities Resuscitation Resuscitation: N/A - Spontaneous Resp L&D Stage3 Stage Three Stage III Date: Jan 21, 2021 Stage III Time: 06:30 Pictocin Pitocin Administration Comment: 30 mu wide open at delivery of placenta Placenta Delivery Placenta Delivery: Spontaneous Delivery Summary Summary Estimated blood loss (mL): 300 Attending at delivery: Cassy Ni DO Condition of Delivery Examined: Cervix Examined, Uterus Explored Post Hemorrhage: No Condition of Mother stable Condition of (s) stable CASSY NI DO Jan 21, 2021 06:34
[2021-01-21] MEDS ORDERED: IBUPROFEN 600 MG (MOTRIN) TAB PO ONE (06:37)
[2021-01-21] MEDS: IBUPROFEN 600 MG (MOTRIN) TAB PO SCH ×3 (06:44→18:48)
[2021-01-21] MEDS: OXYTOCIN PRE-MIX DRIP 500 ML IV SCH ×2 (06:45→06:51)
[2021-01-21] MEDS: PRENATAL VITAMIN 1 EA TAB PO SCH (08:36)
[2021-01-21] MEDS: DOCUSATE SODIUM 100 MG (COLACE) CAP PO SCH ×2 (08:36→19:58)
[2021-01-21] MEDS: FERROUS SULF 325 MG (IRON) TAB PO SCH (08:38)
[2021-01-21] MEDS ORDERED: IBUP-844 PO (09:22)
[2021-01-21] MEDS ORDERED: FERR325T18 PO (09:22)
[2021-01-21] MEDS ORDERED: DCS100C PO (09:22)
--- NOTE | 2021-01-21 09:22 | Discharge Inst-Women's Service ---
Discharge Inst-Women's Serv Depart Medication/Instructions New, Converted or Re-Newed RX: RX on Chart Final Diagnosis PPD 1 NVD Problems Reviewed?: Yes Consults/Follow Up Additional Follow Up: Yes Orders/Referrals Dr. Ni in 6 weeks Activity Activity: Activity as Tolerated Driving Instructions: No Driving for 1 Week NO SMOKING: NO SMOKING Nothing Inside Vagina: No Douching, No Long Barn, No Tampons Diet Discharge Diet: No Restrictions Symptoms to Report to : Bleeding Excessive, Pain Increased, Fever Over 101 Degrees F, Vaginal Bleeding Increase, Questions/Concerns For Any Problems or Questions: Contact Your Physician CASSY NI DO Jan 21, 2021 09:22
[2021-01-21] MEDS: ACETAMINOPHEN 500 MG TAB (TYLENOL) PO SCH ×3 (09:49→23:12)
[2021-01-22 00:58] VITALS: BP 89/47
[2021-01-22] MEDS: IBUPROFEN 600 MG (MOTRIN) TAB PO SCH ×2 (00:58→08:29)
[2021-01-22] MEDS: ACETAMINOPHEN 500 MG TAB (TYLENOL) PO SCH ×2 (05:09→08:29)
[2021-01-22 05:15] VITALS: BP 100/55
[2021-01-22 05:57] LABS: BASOPHILS % (AUTO) 0 % (0-10); EOSINOPHILS # (AUTO) 0.1 10^3/uL (0.0-0.3); EOSINOPHILS % (AUTO) 1 % (0-10); HEMATOCRIT 27 % (35-52); HEMOGLOBIN 8.4 g/dL (11.5-16.0); LYMPHOCYTES % (AUTO) 29 % (12-44); MEAN CORPUSCULAR HEMOGLOBIN 25 pg (25-34); MEAN CORPUSCULAR HGB CONC 31 g/dL (32-36); MEAN CORPUSCULAR VOLUME 80 fL (80-99); MEAN PLATELET VOLUME 10.8 fL (9.0-12.2); MONOCYTES # (AUTO) 0.5 10^3/uL (0.0-1.0); MONOCYTES % (AUTO) 5 % (0-12); NEUTROPHILS # (AUTO) 6.5 10^3/uL (1.8-7.8); NEUTROPHILS % (AUTO) 64 % (42-75); PLATELET COUNT 185 10^3/uL (130-400); WHITE BLOOD COUNT 10.3 10^3/uL (4.3-11.0)
--- NOTE | 2021-01-22 06:44 | Postpartum Progress Note ---
Note Note Day # 1 Subjective: Patient is without complaints. Ambulating, voiding. Tolerating a regular diet without nausea or vomiting. Normal lochia. Pain is well controlled with oral pain medications. Objective: Physical Exam: General - Alert and oriented, no apparent distress Abdomen - Soft, appropriately tender to palpation, non-distended, fundus firm at umbilicus Extremities - no edema, negative Alan's bilaterally Assessment: PPD 1 NVD Acute blood loss anemia Plan: Routine care. Encourage breast feeding. Encourage ambulation. Ferrous sulfate supplementation. Plan for discharge today Vitals - Labs Vital Signs - I&O Vital Signs Date Time Temp Pulse Resp B/P (MAP) Pulse Ox O2 Delivery O2 Flow Rate FiO2 01/22/21 00:58 36.9 57 3 89/47 (61) 96 Room Air 01/21/21 20:58 36.3 67 16 98/66 (77) 97 Room Air 01/21/21 17:13 36.6 54 93/53 (66) Room Air 01/21/21 12:46 36.7 75 20 101/67 (78) Room Air 01/21/21 08:40 64 18 113/84 (94) 01/21/21 08:20 70 18 106/60 (75) 01/21/21 08:00 36.5 75 18 104/64 (77) 01/21/21 07:40 71 18 115/59 (77) 01/21/21 07:19 74 18 124/74 (91) 01/21/21 07:00 78 18 125/80 (95) Labs Laboratory Tests 01/22/21 05:33: White Blood Count 10.3, Red Blood Count 3.38L, Hemoglobin 8.4L, Hematocrit 27L, Mean Corpuscular Volume 80, Mean Corpuscular Hemoglobin 25, Mean Corpuscular Hemoglobin Concent 31L, Red Cell Distribution Width 14.9H, Platelet Count 185, Mean Platelet Volume 10.8, Immature Granulocyte % (Auto) 0, Neutrophils (%) (Auto) 64, Lymphocytes (%) (Auto) 29, Monocytes (%) (Auto) 5, Eosinophils (%) (Auto) 1, Basophils (%) (Auto) 0, Neutrophils # (Auto) 6.5, Lymphocytes # (Auto) 3.0, Monocytes # (Auto) 0.5, Eosinophils # (Auto) 0.1, Basophils # (Auto) 0.0, Immature Granulocyte # (Auto) 0.0 Microbiology 01/21/21 Urine Culture - Preliminary, Resulted NO GROWTH CASSY NI DO Jan 22, 2021 06:43
--- NOTE | 2021-01-22 06:52 | Anesthesia-Regional Post-Op ---
Regional Patient Condition Mental Status: Alert, Oriented x3 Circulation: Same as Pre-Op Headache: Absent Sensation: Full Recovery Motor Block: Absent Post Op Complications Complications None Follow Up Care/Instructions Patient Instructions None needed. Anesthesia/Patient Condition Patient is doing well, no complaints, stable vital signs, no apparent adverse anesthesia problems. No complications reported per nursing. JACOB HANKS CRNA Jan 22, 2021 06:52
[2021-01-22] MEDS: PRENATAL VITAMIN 1 EA TAB PO SCH (08:29)
[2021-01-22] MEDS: FERROUS SULF 325 MG (IRON) TAB PO SCH (08:29)
[2021-01-22] MEDS: DOCUSATE SODIUM 100 MG (COLACE) CAP PO SCH (08:29)
[2021-01-22 08:30] VITALS: BP 82/44
== END 2021-01-22 08:36 | disposition home or self-care (01) | DRG 806 ==
LOC: WSo 01:58 → LDRP 01:58 → WSo 02:05 → LDRP 02:05
PROVIDERS: ADMIT Obstetrics & Gynecology; ATTEND Obstetrics & Gynecology
PROC: 10E0XZZ Delivery of Products of Conception, External Approach (ICD-10-PCS; principal; 2021-01-21)
PROC: 0UQMXZZ Repair Vulva, External Approach (ICD-10-PCS; 2021-01-21)
DX: O26.893 Other specified pregnancy related conditions, third trimester (principal); D62 Acute posthemorrhagic anemia; Z37.0 Single live birth; G89.29 Other chronic pain; O69.81X0 Labor and delivery complicated by cord around neck, without compression, not applicable or unspecified; Z3A.39 39 weeks gestation of pregnancy; O71.82 Other specified trauma to perineum and vulva; O90.81 Anemia of the puerperium
CPT/HCPCS: 36415; 81000; 85025; 86850; 86900; 86901; 87088; 99212

== ENCOUNTER → 2021-10-31 | Outpatient (CLI) | payer MEDICAID ==
[~2021-10-31] MED LIST changes: +BUPR8TAB SL; +CLIN-144 PO; -CLIN300C12 PO; +DOCU-239 PO; +DOXY-311 PO; -DOXY100C42 PO; +DOXY100C5 PO; +POTA-179 PO; -POTA20TA15 PO; -SULF1TAB35 PO; +SULF1TAB38 PO
--- NOTE | 2021-10-31 13:06 | Diagnostic Imaging Report ---
CLINICAL INDICATION: Patient with deep pain on intercourse. Exam: Transabdominal ultrasound of the pelvis. Comparison: Ultrasound pelvis dated 11/30/2019. Findings: The uterus has normal echogenicity and echotexture with normal shape and configuration. The uterus measures 8.1 cm x 5.5 cm x 4.3 cm. The uterus is anteverted in position. The endometrial stripe measures 5 mm. Previously seen IUD is not seen on this exam. Dominant follicle within the right ovary is noted. The right and left ovaries demonstrate normal configuration and echogenicity. Both ovaries demonstrate normal color Doppler flow and spectral Doppler waveform. There is no evidence of ovarian torsion. The right and left ovaries measure 2.9 cm x 2.2 cm x 1.6 cm and 2.3 cm x 1.9 cm x 1.2 cm. There is no significant free fluid within the pelvis. Impression: Unremarkable ultrasound of the pelvis. Dictated by: Dictated on workstation # [id number]
== END ==
LOC: RAD 12:30
PROVIDERS: ATTEND Obstetrics & Gynecology
DX: N94.12 Deep dyspareunia (principal)
CPT/HCPCS: 76856

== ENCOUNTER 2022-01-13 07:22 | Day surgery (SDC) | payer MEDICAID ==
[~2022-01-13] VITALS: Ht 154.9 cm; Wt 84.1 kg
[2022-01-13] VITALS (11 sets, daily range): BP systolic 101–131; BP diastolic 67–95
[2022-01-13] MEDS ORDERED: BUPIVACAINE 0.25% 10 ML (SENSORCAINE) VIAL ONE (07:35)
[2022-01-13 08:00] LABS: BASOPHILS % (AUTO) 1 % (0-10); EOSINOPHILS # (AUTO) 0.1 10^3/uL (0.0-0.3); EOSINOPHILS % (AUTO) 1 % (0-10); HEMATOCRIT 37 % (35-52); HEMOGLOBIN 11.8 g/dL (11.5-16.0); LYMPHOCYTES # (AUTO) 1.9 10^3/uL (1.0-4.0); LYMPHOCYTES % (AUTO) 27 % (12-44); MEAN CORPUSCULAR HEMOGLOBIN 26 pg (25-34); MEAN CORPUSCULAR HGB CONC 32 g/dL (32-36); MEAN CORPUSCULAR VOLUME 81 fL (80-99); MEAN PLATELET VOLUME 9.8 fL (9.0-12.2); MONOCYTES # (AUTO) 0.4 10^3/uL (0.0-1.0); MONOCYTES % (AUTO) 5 % (0-12); NEUTROPHILS # (AUTO) 4.7 10^3/uL (1.8-7.8); NEUTROPHILS % (AUTO) 66 % (42-75); PLATELET COUNT 327 10^3/uL (130-400); WHITE BLOOD COUNT 7.1 10^3/uL (4.3-11.0)
[2022-01-13] MEDS ORDERED: ceFAZolin INJECTION 1,000 MG VIAL IV ONE (08:00)
[2022-01-13] MEDS ORDERED: BUPR150T14 PO (08:09)
[2022-01-13] MEDS ORDERED: NICO-685 TD (08:09)
[2022-01-13] MEDS ORDERED: SERT-412 PO (08:09)
[2022-01-13] MEDS ORDERED: LACTATED RINGERS 1,000 ML IV PRN (08:15)
[2022-01-13] MEDS ORDERED: LIDOCAINE PF 2% 5 ML (XYLOCAINE) VIAL ONE (08:44)
[2022-01-13] MEDS ORDERED: MIDAZOLAM 2 MG/2 ML (VERSED) VIAL ONE (08:44)
[2022-01-13] MEDS ORDERED: proPOfol 200 MG/20 ML (DIPRIVAN) VIAL IV ONE (08:44)
[2022-01-13] MEDS ORDERED: fentaNYL INJ 100 MCG/2 ML AMP ONE (08:44)
[2022-01-13] MEDS ORDERED: ROCURONIUM 10 MG/ML 5 ML SYRINGE IV ONE (08:49)
[2022-01-13] MEDS ORDERED: ONDANSETRON 4 MG/2 ML (SDV) Z0FRAN ONE (08:49)
[2022-01-13] MEDS ORDERED: IBUP-1773 PO (09:37)
[2022-01-13] MEDS ORDERED: ACHD5005 PO (09:37)
--- NOTE | 2022-01-13 09:37 | Discharge Inst-Women's Service ---
Discharge Inst-Women's Serv Depart Medication/Instructions New, Converted or Re-Newed RX: Transmitted to Pharmacy Problems Reviewed?: Yes Consults/Follow Up Additional Follow Up: Yes Orders/Referrals Dr. Talamantes/ Dorina in 7-10 days Activity Activity: Activity as Tolerated Driving Instructions: No Driving for 1 Week NO SMOKING: NO SMOKING Nothing Inside Vagina: No Douching, No Pershing, No Tampons Diet Discharge Diet: No Restrictions Symptoms to Report to : Bleeding Excessive, Pain Increased, Fever Over 101 Degrees F, Vaginal Bleeding Increase, Questions/Concerns For Any Problems or Questions: Contact Your Physician Skin/Wound Care Infection Signs and Symptoms: Increased Redness, Foul Odor of Wound, Increased Drainage, Skin Itchy or Has a Rash, Increased Swelling, Temperature Above 101 F Operative Area Clean and Dry: Keep Incision Clean/Dry Stitches/Cristal/Dermabond: Dermabond, Care of Stitches Bathing Instructions: CASSY Santillan DO Jan 13, 2022 09:37
[2022-01-13] MEDS ORDERED: HYDROcodone/APAP 5 MG/325 MG (LORTAB) TAB PO PRN (09:45)
[2022-01-13] MEDS ORDERED: ONDANSETRON 4 MG/2 ML (SDV) Z0FRAN IVP PRN ×2 (09:45→10:15)
[2022-01-13] MEDS ORDERED: D5 LR IV SOLUTION 1,000 ML IV SCH (09:45)
[2022-01-13] MEDS ORDERED: KETOROLAC 30 MG/ML VIAL IVP ONE (09:45)
[2022-01-13] MEDS ORDERED: HYDROmorphone 2 MG/ML VIAL (DILAUDID) IV ONE (10:15)
[2022-01-13] MEDS ORDERED: HYDROmorphone 2 MG/ML VIAL (DILAUDID) ONE (10:51)
[2022-01-13] MEDS ORDERED: SUGAMMADEX 500 MG/5 ML VIAL (BRIDION) IV ONE (10:55)
--- NOTE | 2022-01-13 11:09 | OPERATIVE REPORT ---
DATE OF SERVICE: PREOPERATIVE DIAGNOSIS: A 26-year-old female with chronic pelvic pain. POSTOPERATIVE DIAGNOSIS: A 26-year-old female with chronic pelvic pain. PROCEDURE: Diagnostic laparoscopy. SURGEON: aCssy Ni DO ANESTHESIA: LMA general. ESTIMATED BLOOD LOSS: Minimal. URINE OUTPUT: 100 mL clear at the end of the procedure. FLUIDS: 800 mL lactated Ringer's solution. FINDINGS: Grossly normal-appearing external female genitalia, grossly normal appearing pelvic anatomy, grossly normal appearing upper abdominal anatomy. SPECIMEN SENT: None. INDICATIONS FOR PROCEDURE: This 26-year-old female is a patient who had sought care in my office reports issues with chronic pelvic pain that appears to be getting worse as time passes. She had been diagnosed with endometriosis in the past without confirmation on surgical visualization. She also has a history of illicit drug use and narcotic abuse in the past. She is currently on Suboxone therapy with pain management. I discussed with the patient proceeding with laparoscopy. All other methods for dealing with her pain were not alleviatory. The patient was agreeable to do this. She actually was requesting laparoscopy at her last appointment. The risks of procedure were discussed with the patient in detail including risk of bleeding, infection, damage to surrounding structures including, but not limited to bowel, bladder, ureter, kidneys, possible need for reoperation, postoperative complications that may occur, risk from anesthesia, recovery timeframe and even . After everything was discussed with the patient in detail, consent was obtained, the patient was taken to the operating room. OPERATIVE REPORT IN DETAIL: Once in the operating room, anesthesia was found to be adequate. She was placed in the dorsal lithotomy position, prepped and draped in normal sterile fashion where a timeout was performed. Solis catheter was placed using sterile technique. A weighted speculum inserted to the patient's vagina. Right angle retractor was used to visualize the cervix, which was grasped at 12 o'clock position using a long Allis clamp. I then placed a Kronner uterine manipulator to a depth of 7 cm deploying the balloon, I removed all the other instruments from the patient's vagina, performed change of gloves and my attention to the abdomen, where mid costal line subclavicular on the left side, I placed a Veress needle through the skin until intraperitoneal placement was confirmed using saline drop test. An opening pressure of 3 mmHg was noted, proceeded to maximum pressure of 15 mmHg, at which point I removed the Veress needle and introduced a 5 mm infraumbilical trocar after I infused the skin with Marcaine, making a 5 mm incision with a knife, the trocars placed under direct visualization and laparoscope. Once this was in place, I then able to confirm intraperitoneal placement using the laparoscope. There was no evidence of damage from entry site. A brief scan of the upper abdominal anatomy appears to be grossly normal. The Veress site does not appear to cause any damage. The Veress was removed at that point. There is no evidence of damage or scar tissue or injury in the lower abdomen as well. All anatomy appears grossly normal as the patient placed in steep Trendelenburg where I am able to visualize the ovaries, posterior cul-de-sac and anterior cul-de-sac. The vesicouterine peritoneum, and uterosacral ligaments all are within normal limits. The ovarian fossa was within normal limits. Due to no findings, I decided to end the procedure at that point and had the patient taken out of steep Trendelenburg where I released insufflation through the infraumbilical trocar site. I introduced 10 mL of 0.25% Marcaine into the peritoneal cavity for postoperative pain management. I then removed this trocar as well. The skin reapproximated using 4-0 Monocryl in interrupted subcuticular stitches. Dermabond was applied to incision and Band-Aids were placed over both incisions and the puncture wound from the Veress. Solis catheter was removed. Kronner uterine manipulator was removed. The patient tolerated the procedure well and sent to recovery area in stable condition. Lap and sponge counts were correct at the end of the procedure. Instrument counts correct as well. Job ID: [id number] DocumentID: [id number] Dictated Date: 01/13/2022 10:06:08 Theater Technician Date: 01/13/2022 11:08:40 Dictated By: CASSY NI DO
== END 2022-01-13 12:10 | disposition home or self-care (01) ==
LOC: SDC 07:22
PROVIDERS: ATTEND Obstetrics & Gynecology
DX: G89.29 Other chronic pain (principal); R10.2 Pelvic and perineal pain; F17.210 Nicotine dependence, cigarettes, uncomplicated; Z79.891 Long term (current) use of opiate analgesic
CPT/HCPCS: 36415; 84703; 85025; 86850; 86900; 86901; 87081

== ENCOUNTER 2022-04-30 16:18 | Inpatient (IN) | payer MEDICAID ==
[~2022-04-30] VITALS: Ht 155 cm; Wt 76.7 kg
[~2022-04-30 16:18] MED LIST changes: +BUPR-105 PO; +IBUP-1773 PO; +NICO-685 TD; +OMEP20TA56 PO; -OMEP20TA7 PO; +SERT-412 PO
--- NOTE | 2022-04-30 16:56 | History & Physical-Hospitalist ---
History of Present Illness HPI/Chief Complaint Jean Claude Hernandez is a 26 year old female with PMH tobacco abuse, cyclic vomiting, who presented to [facility] ER with weakness. She reports abdominal pain. She has had intractable nausea and vomiting for the past week. She has not been able to eat or drink anything during that time. She denies fevers and chills. She denies chest pain and palpitations. She denies shortness of breath and cough. She denies headaches, vision changes, balance issues, and memory issues. She does not take any medications regularly. She is a current every day smoker. She does not drink alcohol. She denies illicit drug use. Source: patient Exam Limitations: no limitations Date Seen 04/30/22 Time Seen by a Provider: 16:40 Attending Physician No,Local Physician PCP Admitting Physician: Pily Chavez MD Attending Physician: Pily Chavez MD Referring Physician Date of Admission Apr 30, 2022 at 16:18 Home Medications & Allergies Home Medications Reviewed patient Home Medication Reconciliation performed by pharmacy medication reconciliations broadcast operations technician and/or nursing. Patients Allergies have been reviewed. 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 Cyclic vomiting syndrome versus cannabis hyperemesis 2. History of exercised induced asthma 3. Chronic anxiety and depression 4. Candidiasis of the esophagus 5. Noncompliance with medical therapy 6. Cannabis abuse Past surgical history 1. Multiple EGDs 2. Appendectomy 3. Cholecystectomy 4. Laparoscopic paratubal cystectomies with removal of endometriosis Family Medical History Cancer GPA-DAD SIDE, Onset:Unknown Cataract GMA-DAD SIDE Dementia GPA-DAD SIDE Family history: Arthritis GPA-MOM SIDE Family history: Cardiovascular disease GMA-DAD SIDE (CAD STINTS) GMA-MOM SIDE (ENLARGED HEART DEFIBALATOR AND PACER) History of - respiratory disease GPA-DAD SIDE (EMPHYSEMA, COPD) No Family History of: AIDS Abdominal aortic aneurysm Abdominal aortic aneurysm Raleigh's disease Raleigh's disease Alcoholism Alcoholism Alzheimer's disease Aphasia Aphasia Arthritis Asthma Cancer of colon Cancer of mouth Cardiovascular disease Cataracts Chest pain Colon cancer Completed stroke Congenital disease Congenital heart disease Congenital heart disease Congestive heart failure Coronary thrombosis Cystic fibrosis Cystic fibrosis Deafness or hearing loss Diabetes mellitus Drug abuse Dysphagia Dysphasia Family history: Allergy Family history: Alzheimer's disease Family history: Asthma Family history: Breast disease Family history: Coronary thrombosis Family history: Diabetes mellitus Family history: Gastrointestinal disease Family history: Glaucoma Family history: Hypertension Family history: Osteoporosis Family history: Thyroid disorder Fibrocystic disease of breast Gastroenteritis Glaucoma Headache Hearing loss Heart disease Hereditary disease History of - anemia History of - disorder History of drug abuse Human immunodeficiency virus (HIV) seropositivity Hypercholesterolemia Hypercholesterolemia Infertile Kidney disease Malignant neoplasm of lung Myocardial infarction Parkinson's disease Prostate cancer Psychotic disorder Seizure disorder Severe allergy Stroke Thyroid disease Tuberculosis Tuberculosis Visual disorder Visual impairment No Pertinent Family Hx Review of Systems Constitutional: weakness EENTM: no symptoms reported Respiratory: no symptoms reported Cardiovascular: no symptoms reported Gastrointestinal: abdominal pain; No diarrhea, No hematemesis; nausea, vomiting Musculoskeletal: no symptoms reported Skin: no symptoms reported Physical Exam Physical Exam Vital Signs Capillary Refill : Height, Weight, BMI Height: 5'1.00" Weight: 115lbs. 0oz. 52.813058wk; 35.05 BMI Method:Stated General Appearance: No Apparent Distress, WD/WN HEENT: PERRL/EOMI, Other (dry mucous membranes) Respiratory: Lungs Clear, Normal Breath Sounds, No Respiratory Distress Cardiovascular: Regular Rate, Rhythm, No Edema, No Murmur Gastrointestinal: Normal Bowel Sounds, Non Tender, Soft Extremity: Normal Inspection, No Pedal Edema Neurologic/Psychiatric: Alert, Motor Weakness, Other (flat affect) Skin: Normal Color, Warm/Dry Results Results/Procedures Labs Patient resulted labs reviewed. Assessment/Plan Admission Diagnosis Hyponatremia Admission Status: Inpatient Order (span 2 midnights) Reason for Inpatient Admission: Severe electrolyte abnormalities Assessment and Plan Hyponatremia Hypokalemia Intractable nausea and vomiting Na 114 and K 1.9 on arrival to [facility] s/p NS and 20 KCl Repeat BMP stat, then Q4H Gradual sodium increase, goal 122-126 tomorrow at 1 pm IV fluids and electrolytes, adjusting as needed Antiemetics Check UDS TeleICU consult Tobacco abuse Nicotine patch DVT prophylaxis: ambulation Critical Care Critically Ill Patient Diagnosis/Problems Diagnosis/Problems (1) Hyponatremia Status: Acute (2) Hypokalemia Status: Acute (3) Intractable nausea and vomiting Status: Acute (4) Cyclical vomiting syndrome Status: Acute (5) Marijuana use Status: Acute (6) Tobacco abuse Status: Acute PILY CHAVEZ MD Apr 30, 2022 16:56
[2022-04-30] MEDS ORDERED: BISACODYL 10 MG SUPP (DULCOLAX) PR PRN (17:00)
[2022-04-30] MEDS ORDERED: ONDANSETRON 4 MG/2 ML (SDV) Z0FRAN IV PRN (17:00)
[2022-04-30] MEDS ORDERED: ONDANSETRON 4 MG (ZOFRAN) ORAL DISSOLVE TAB PO PRN (17:00)
[2022-04-30] MEDS ORDERED: LACTULOSE SYRUP 10GM/15ML (ENULOSE) 30ML UDC PO PRN (17:00)
[2022-04-30] MEDS ORDERED: ANTACID SUSP 30 ML UDC (MYLANTA) PO PRN (17:00)
[2022-04-30] MEDS ORDERED: MELATONIN 3 MG TABLET PO PRN (17:00)
[2022-04-30] MEDS ORDERED: ACETAMINOPHEN 325 MG TABLET PO PRN (17:00)
[2022-04-30] MEDS ORDERED: MILK OF MAGNESIA 400 MG/5 ML 30 ML UDC PO PRN (17:00)
[2022-04-30] MEDS ORDERED: diphenhydrAMINE 25 MG TAB (BENADRYL) PO PRN (17:00)
[2022-04-30] MEDS ORDERED: PROCHLORPERAZINE 10 MG/2ML INJ (COMPAZINE) IV PRN (17:00)
[2022-04-30] MEDS ORDERED: diphenhydrAMINE 50 MG/ML INJ (BENADRYL) IVP PRN (17:00)
[2022-04-30] MEDS ORDERED: CALCIUM CARBONATE 500 MG (TUMS) TAB.CHEW PO PRN (17:00)
[2022-04-30] MEDS ORDERED: PROMETHAZINE INJ 25 MG/ML (PHENERGAN) AMP IVP PRN (17:00)
[2022-04-30] MEDS ORDERED: polyethylene glycoL POWDER 17 GM (MIRALAX) PACK PO PRN (17:00)
[2022-04-30] MEDS ORDERED: NS W/KCL 40 MEQ/L 1,000 ML IV SCH (17:00)
[2022-04-30] MEDS ORDERED: NICOTINE 14 MG (NICODERM) PATCH TD NR (17:15)
[2022-04-30 17:38] LABS: CREATININE SERUM 0.61 MG/DL (0.60-1.30)
[2022-04-30 17:43] LABS: BILIRUBIN,URINE NEGATIVE (NEGATIVE); CLARITY,URINE CLEAR; COLOR,URINE YELLOW; GLUCOSE, URINE (UA) NEGATIVE (NEGATIVE); KETONES,URINE 1+ (NEGATIVE); LEUKOCYTE ESTERASE ,URINE NEGATIVE (NEGATIVE); NITRITE,URINE NEGATIVE (NEGATIVE); PH,URINE 6.5 (5-9); PROTEIN,URINE NEGATIVE (NEGATIVE)
[2022-04-30 17:49] LABS: POTASSIUM 2.2 MMOL/L (3.6-5.0)
[2022-04-30 17:55] LABS: BACTERIA,URINE TRACE /HPF; RBC,URINE 0-2 /HPF; SQUAMOUS EPITHELIAL CELL,UR 0-2 /HPF
[2022-04-30 17:56] LABS: AMPHETAMINE SCREEN, URINE NEGATIVE (NEGATIVE); BARBITURATE SCREEN URINE NEGATIVE (NEGATIVE); BENZODIAZEPINES SCREEN URINE NEGATIVE (NEGATIVE); CANNABINOID SCREEN, URINE POSITIVE (NEGATIVE); COCAINE SCREEN URINE NEGATIVE (NEGATIVE); METHADONE STAT NEGATIVE (NEGATIVE); OPIATE SCREEN URINE NEGATIVE (NEGATIVE); OXYCODONE STAT NEGATIVE (NEGATIVE); PROPOXYPHENE STAT NEGATIVE (NEGATIVE); TRICYCLIC ANTIDEPRESSANTS SCRE NEGATIVE (NEGATIVE)
[2022-04-30] MEDS ORDERED: D5W W/KCL 20 MEQ/L 1,000 ML IV SCH ×2 (18:00→22:00)
[2022-04-30] MEDS ORDERED: KCL 20 MEQ TAB (K-DUR) PO ONE (18:15)
[2022-04-30] MEDS ORDERED: KCL 20 MEQ TAB (K-DUR) PO NR ×2 (18:30→20:30)
[2022-04-30] MEDS ORDERED: 1/2 NS IV SOLUTION 1,000 ML IV SCH (18:30)
--- NOTE | 2022-04-30 18:31 | Tele-ICU Consult ---
History of Present Illness History of Present Illness Date Seen by Provider: Apr 30, 2022 Time Seen by Provider: 18:31 Date of Admission (Tele-ICU Physician , consultation) Available chart/ vitals / labs / Images reviewed H&P is from ER notes Patient's information available about PMH, Shx, Fhx allergy reviewed in EMR. ROS as per chart and RN report Now in ICU, hemodynamically stable Video assessment done using teleICU camera, rest of exam as per RN Discussed with RN. Consultants: Hospital course: A/P HypoNatremia( Mental status WNL , no SZ ) - -presented with 114 at 1/15 pm - received 1 L NS - 4 h latter is 120 - was not well for week , presumed acute on chronic - will change to 1/2 NS and check q 4 h with goal of 122 by noon 05/01 hypokalemia, sever - replaceing PO and IV - follow presented with N/V , with h/o Cyclic vomiting syndrome versus cannabis hyperemesis - follow h/o exercised induced asthma- stable Chronic anxiety and depression H/o Candidiasis of the esophagus- Multiple EGDs Lines : (Central Line Necessity Reviewed) Solis: OG: Nutrition: Analgesia: Anxiety/ delirium VTE Prophylaxis: Stress Ulcer Prophylaxis: Plans in collaboration with bedside consultants and IM MDs. Discussed with RN to reach out if any questions or concerns A total of 33 minutes of critical care time was devoted to this patient today, required to treat and/or prevent further deterioration of critical care condition ( as above ) . Allergies and Home Medications Allergies Coded Allergies: No Known Drug Allergies (Unverified , 01/12/16) Home Medications Hydrocodone Bit/Acetaminophen 1 Tab Tab, 1-2 EA PO Q6HR PRN for PAIN-MODERATE (5-7) Prescribed by: CASSY NI on 01/13/22 0938 Ibuprofen 600 Mg Tablet, 600 MG PO Q6H Prescribed by: CASSY NI on 01/13/22 0937 Nicotine 1 Each Patch.td24, 21 MG TD DAILY, (Reported) Sertraline HCl 25 Mg Tablet, 25 MG PO DAILY, (Reported) Past Medical/Social/Family Hx Patient Social History Tobacco type used: Cigarettes Smoking Status: Current Everyday Smoker Use of E-Cig and/or Vaping dev: No Substance use?: No PATIENT REPORTS NO BUT PREVIOUS HOSPITAL STAYS HAS TESTED POSITIVE FOR THC Alcohol Use?: No Pt stated abuse/neglect: No Immunizations Up To Date Influenza Vaccine Up-to-Date: Yes; Up-to-Date Tetanus Booster (TDap): Less Than 5 Years Hepatitis A: No Hepatitis B: No TB Skin Test: Negative Date of Pneumonia Vaccine: Nov 12, 2013 Current Status status: No status: No Advance Directives: No Communicates: Verbally Primary Language: Malay Preferred Spoken Language: Malay Past Medical History Past medical history 1. Cyclic vomiting syndrome versus cannabis hyperemesis 2. History of exercised induced asthma 3. Chronic anxiety and depression 4. Candidiasis of the esophagus 5. Noncompliance with medical therapy 6. Cannabis abuse Past surgical history 1. Multiple EGDs 2. Appendectomy 3. Cholecystectomy 4. Laparoscopic paratubal cystectomies with removal of endometriosis Review of Systems Constitutional: see HPI Focused Exam Height, Weight, BMI Height: 5'1.00" Weight: 115lbs. 0oz. 52.250993do; 31.30 BMI Method:Stated Exam Exam Patient acknowledged, consented, and participated in this virtual visit which was conducted using real time audio/video Vital Signs Date Time Temp Pulse Resp B/P (MAP) Pulse Ox O2 Delivery O2 Flow Rate FiO2 04/30/22 18:00 87 13 125/80 92 Room Air 04/30/22 17:09 94 Room Air 04/30/22 16:30 90 13 107/67 93 Room Air 04/30/22 16:26 102 Height & Weight Height: 5'1.00" Weight: 115lbs. 0oz. 52.790588lw; 31.30 BMI Method:Stated General Appearance: No Apparent Distress, WD/WN HEENT: PERRL/EOMI, Other (dry mucous membranes) Respiratory: Lungs Clear, Normal Breath Sounds, No Respiratory Distress Cardiovascular: Regular Rate, Rhythm, No Edema, No Murmur Extremity: Normal Inspection, No Pedal Edema Neurologic/Psychiatric: Alert, Motor Weakness, Other (flat affect) Skin: Normal Color, Warm/Dry Results Lab Laboratory Tests 04/30/22 17:15 Assessment/Plan Assessment/Plan 1 NAT COVARRUBIAS MD Apr 30, 2022 18:31
--- NOTE | 2022-04-30 18:33 | Diagnostic Imaging Report ---
EXAMINATION: Chest 1 view HISTORY: Line placement COMPARISON: 08/23/2018 FINDINGS: The lungs are clear without edema or pneumonia. No pleural effusion or pneumothorax. Heart size is normal. Right upper extremity peripherally inserted central venous catheter tip terminates in the superior vena cava. IMPRESSION: 1. Right upper extremity peripherally inserted central venous catheter tip terminates in the superior vena cava. Dictated by: Dictated on workstation # [id number]
[2022-04-30] MEDS: POTASSIUM CL 10MEQ/50ML IVPB 50 ML IV SCH ×4 (20:05→23:01)
[2022-04-30] MEDS: SENNOSIDES 8.6 MG (SENOKOT) TAB PO SCH (20:08)
[2022-04-30] MEDS: DOCUSATE SODIUM 100 MG (COLACE) CAP PO SCH (20:08)
[2022-04-30 21:23] LABS: CALCIUM 8.6 MG/DL (8.5-10.1)
[2022-04-30 21:28] LABS: CREATININE SERUM 0.64 MG/DL (0.60-1.30)
[2022-04-30 21:34] LABS: POTASSIUM 2.5 MMOL/L (3.6-5.0)
[2022-04-30] MEDS ORDERED: POTASSIUM CL 10MEQ/50ML IVPB 50 ML IV ONE (22:15)
[2022-05-01] MEDS ORDERED: POTASSIUM CL 10MEQ/50ML IVPB 50 ML IV ONE (00:21)
[2022-05-01 01:38] LABS: POTASSIUM 3.3 MMOL/L (3.6-5.0)
[2022-05-01 01:39] LABS: CALCIUM 8.9 MG/DL (8.5-10.1)
[2022-05-01 01:44] LABS: CREATININE SERUM 0.64 MG/DL (0.60-1.30)
[2022-05-01] MEDS: POTASSIUM CL 10MEQ/50ML IVPB 50 ML IV SCH ×3 (01:57→05:44)
[2022-05-01] MEDS ORDERED: KCL 20 MEQ TAB (K-DUR) PO ONE ×2 (02:00→08:00)
[2022-05-01 05:09] LABS: BASOPHILS % (AUTO) 1 % (0-10); EOSINOPHILS # (AUTO) 0.1 10^3/uL (0.0-0.3); EOSINOPHILS % (AUTO) 1 % (0-10); HEMATOCRIT 39 % (35-52); HEMOGLOBIN 13.8 g/dL (11.5-16.0); LYMPHOCYTES # (AUTO) 3.6 10^3/uL (1.0-4.0); LYMPHOCYTES % (AUTO) 41 % (12-44); MEAN CORPUSCULAR HEMOGLOBIN 27 pg (25-34); MEAN CORPUSCULAR HGB CONC 36 g/dL (32-36); MEAN CORPUSCULAR VOLUME 76 fL (80-99); MEAN PLATELET VOLUME 10.2 fL (9.0-12.2); MONOCYTES # (AUTO) 0.9 10^3/uL (0.0-1.0); MONOCYTES % (AUTO) 10 % (0-12); NEUTROPHILS # (AUTO) 4.2 10^3/uL (1.8-7.8); NEUTROPHILS % (AUTO) 48 % (42-75); PLATELET COUNT 327 10^3/uL (130-400); WHITE BLOOD COUNT 8.8 10^3/uL (4.3-11.0)
[2022-05-01 05:25] LABS: POTASSIUM 3.6 MMOL/L (3.6-5.0)
[2022-05-01 05:27] LABS: CALCIUM 8.9 MG/DL (8.5-10.1)
[2022-05-01 05:31] LABS: CREATININE SERUM 0.64 MG/DL (0.60-1.30); PHOSPHORUS 1.7 MG/DL (2.3-4.7)
[2022-05-01] MEDS: MAGNESIUM 1 GM/100 ML IVPB 100 ML IV SCH (05:45)
[2022-05-01] MEDS: KCL 20 MEQ TAB (K-DUR) PO SCH (05:45)
[2022-05-01] MEDS ORDERED: D5W W/KCL 20 MEQ/L 1,000 ML IV SCH (06:00)
[2022-05-01] MEDS ORDERED: POTASSIUM PHOSPHATE INJ 30 MM in NS (IVPB) 250 ML IV ONE (07:00)
[2022-05-01] MEDS: NICOTINE 14 MG (NICODERM) PATCH TD SCH (08:23)
[2022-05-01] MEDS: NS IV 1000 ML 1,000 ML IV SCH ×2 (08:23→20:46)
[2022-05-01] MEDS: SENNOSIDES 8.6 MG (SENOKOT) TAB PO SCH ×2 (08:25→20:47)
[2022-05-01] MEDS: NICOTINE PATCH REMOVAL TP SCH (08:25)
[2022-05-01] MEDS: DOCUSATE SODIUM 100 MG (COLACE) CAP PO SCH ×2 (08:33→20:47)
[2022-05-01] MEDS ORDERED: NICOTINE PATCH REMOVAL TP SCH (08:59)
[2022-05-01 10:26] LABS: POTASSIUM 3.5 MMOL/L (3.6-5.0)
[2022-05-01 10:27] LABS: CALCIUM 8.6 MG/DL (8.5-10.1)
[2022-05-01 10:32] LABS: CREATININE SERUM 0.6 MG/DL (0.60-1.30)
--- NOTE | 2022-05-01 10:40 | Tele-ICU Progress Note ---
Subjective Date Seen by a Provider: May 01, 2022 Time Seen by a Provider: 10:40 Subjective/Events-last exam (Tele-ICU Physician , Progress Note ) Available chart/ vitals / labs / Images reviewed Video assessment done using teleICU camera, rest of exam as per RN Discussed with RN , EXAM PER RN Events overnight : Afebrile FiO2 - ra I/O = Drips: Pressors: , hemodynamically stable Consultants: Hospital course: 04/30 -26 yr female DX: Hyponatremia( 114), hypokalemia( 1.9) pt has long hx cyclical vomiting. Presents unable to eat/drink x 1 week with vomiting Pos+ Cannabinoids A/P HypoNatremia( Mental status WNL , no SZ ) - -presented with 114 at 1/15 pm - received 1 L NS - 4 h latter is 120 - was not well for week , presumed acute on chronic - will change to 1/2 NS and check q 4 h with goal of 122 by noon 05/01 -last Na 120 , but fluid was changed 3 h after labs done by PCP - will follow hypokalemia, severe - replaceing , improved presented with N/V , with h/o Cyclic vomiting syndrome versus cannabis hyperemesis - follow h/o exercised induced asthma- stable Chronic anxiety and depression H/o Candidiasis of the esophagus- Multiple EGDs Lines : (Central Line Necessity Reviewed) Solis: OG: Nutrition: Analgesia: Anxiety/ delirium VTE Prophylaxis: ambulate Stress Ulcer Prophylaxis: na Plans in collaboration with bedside consultants and IM MDs. Discussed with RN to reach out if any questions or concerns A total of 20 minutes of critical care time was devoted to this patient today, required to treat and/or prevent further deterioration of critical care condition ( as above ) . Sepsis Event Evaluation Height, Weight, BMI Height: 5'1.00" Weight: 115lbs. 0oz. 52.089249yo; 31.30 BMI Method:Stated Exam Exam Patient acknowledged, consented, and participated in this virtual visit which was conducted using real time audio/video Vital Signs Date Time Temp Pulse Resp B/P (MAP) Pulse Ox O2 Delivery O2 Flow Rate FiO2 05/01/22 09:00 101 7 131/85 98 Room Air 05/01/22 08:33 36.7 05/01/22 08:00 86 13 136/68 91 Room Air 05/01/22 07:00 82 14 119/72 91 Room Air 05/01/22 06:49 80 05/01/22 06:00 85 14 118/67 91 Room Air 05/01/22 05:00 113 115/92 98 Room Air 05/01/22 04:25 91 Room Air 05/01/22 04:25 36.7 05/01/22 04:00 90 14 105/67 93 Room Air 05/01/22 03:00 79 14 106/73 92 Room Air 05/01/22 02:00 87 14 111/73 91 Room Air 05/01/22 01:00 86 15 106/68 91 Room Air 05/01/22 00:53 84 05/01/22 00:28 91 Room Air 05/01/22 00:00 89 14 110/69 90 Room Air 04/30/22 23:00 86 113/73 90 Room Air 04/30/22 22:00 101 9 120/73 95 Room Air 04/30/22 21:00 93 14 110/68 90 Room Air 04/30/22 20:15 36.8 04/30/22 20:15 95 Room Air 04/30/22 20:00 107 17 111/58 91 Room Air 04/30/22 19:00 100 107/68 93 Room Air 04/30/22 19:00 120 04/30/22 18:00 87 13 125/80 92 Room Air 04/30/22 17:09 94 Room Air 04/30/22 16:30 90 13 107/67 93 Room Air 04/30/22 16:26 102 I & O 05/01/22 07:00 Intake Total 2155 ml Output Total 2700 ml Balance -545 ml Height & Weight Height: 5'1.00" Weight: 115lbs. 0oz. 52.919352pd; 31.30 BMI Method:Stated General Appearance: No Apparent Distress, WD/WN HEENT: PERRL/EOMI, Other (dry mucous membranes) Respiratory: Lungs Clear, Normal Breath Sounds, No Respiratory Distress Cardiovascular: Regular Rate, Rhythm, No Edema, No Murmur Extremity: Normal Inspection, No Pedal Edema Neurologic/Psychiatric: Alert, Motor Weakness, Other (flat affect) Skin: Normal Color, Warm/Dry Results Lab Laboratory Tests 04/30/22 17:15 04/30/22 21:07 05/01/22 01:19 05/01/22 05:00 05/01/22 10:05 Assessment/Plan Assessment/Plan 1 NAT COVARRUBIAS MD May 01, 2022 10:40
[2022-05-01 14:22] LABS: POTASSIUM 3.8 MMOL/L (3.6-5.0)
[2022-05-01 14:23] LABS: CALCIUM 8.2 MG/DL (8.5-10.1)
[2022-05-01 14:27] LABS: CREATININE SERUM 0.67 MG/DL (0.60-1.30)
--- NOTE | 2022-05-01 16:43 | Progress Note - Hospitalist ---
Subjective HPI/CC On Admission Date Seen by Provider: May 01, 2022 Time Seen by Provider: 09:45 Jean Claude Hernandez is a 26 year old female with PMH tobacco abuse, cyclic vomiting, who presented to [facility] with weakness. She reports abdominal pain. She has had intractable nausea and vomiting for the past week. She has not been able to eat or drink anything during that time. She denies fevers and chills. She denies chest pain and palpitations. She denies shortness of breath and cough. She denies headaches, vision changes, balance issues, and memory issues. She does not take any medications regularly. She is a current every day smoker. She does not drink alcohol. She denies illicit drug use. Subjective/Events-last exam She is feeling better. She has not had any nausea or vomiting. She wants to eat. She has no complaints. Objective Exam Vital Signs Vital Signs Date Time Temp Pulse Resp B/P (MAP) Pulse Ox O2 Delivery O2 Flow Rate FiO2 05/01/22 16:00 86 18 104/64 95 Room Air 05/01/22 15:52 36.8 Capillary Refill : General Appearance: No Apparent Distress, Obese Respiratory: Lungs Clear, No Respiratory Distress Cardiovascular: Regular Rate, Rhythm Gastrointestinal: Normal Bowel Sounds, Soft Extremity: Normal Inspection, No Pedal Edema Neurologic/Psychiatric: Alert, Normal Mood/Affect Skin: Normal Color, Warm/Dry Results/Procedures Lab Laboratory Tests 04/30/22 17:15 04/30/22 21:07 05/01/22 01:19 05/01/22 05:00 05/01/22 10:05 05/01/22 13:27 Patient resulted labs reviewed. Assessment/Plan Assessment and Plan Assess & Plan/Chief Complaint Hyponatremia Hypokalemia Intractable nausea and vomiting Cannabis hyperemesis syndrome Na 114 and K 1.9 on arrival to [facility] Placed on D5 overnight due to rapid correction Na 120 this morning Transitioned to NS Improved to 124 at 1300 Continue normal saline Continue to check BMP Q8H Transfer to medical floor Antiemetics ordered Recommend cannabis cessation Tobacco abuse Nicotine patch DVT prophylaxis: ambulation Diagnosis/Problems Diagnosis/Problems (1) Hyponatremia Status: Acute (2) Hypokalemia Status: Acute (3) Intractable nausea and vomiting Status: Acute (4) Cyclical vomiting syndrome Status: Acute (5) Marijuana use Status: Acute (6) Tobacco abuse Status: Acute (7) Cannabis hyperemesis syndrome concurrent with and due to cannabis abuse Status: Acute ORLANDO CAHVEZ MD May 01, 2022 16:43
[2022-05-01 17:09] VITALS: BP 102/60
[2022-05-01 19:33] VITALS: BP 124/73
[2022-05-01 20:43] LABS: CREATININE SERUM 0.62 MG/DL (0.60-1.30); POTASSIUM 3.6 MMOL/L (3.6-5.0)
[2022-05-02] VITALS: BP 116/57
[2022-05-02 04:31] VITALS: BP 112/60
[2022-05-02 05:29] LABS: CALCIUM 8.4 MG/DL (8.5-10.1); CREATININE SERUM 0.63 MG/DL (0.60-1.30); MAGNESIUM 1.6 MG/DL (1.6-2.4)
[2022-05-02] MEDS: MAGNESIUM 1 GM/100 ML IVPB 100 ML IV SCH ×3 (05:48→08:08)
[2022-05-02] MEDS: POTASSIUM CL 10MEQ/50ML IVPB 50 ML IV SCH (05:50)
[2022-05-02] MEDS: KCL 20 MEQ TAB (K-DUR) PO SCH ×4 (05:50→09:17)
[2022-05-02 07:41] VITALS: BP 119/82
[2022-05-02] MEDS ORDERED: KCL 20 MEQ TAB (K-DUR) PO ONE ×2 (08:00→10:00)
[2022-05-02] MEDS: SENNOSIDES 8.6 MG (SENOKOT) TAB PO SCH (08:08)
[2022-05-02] MEDS: DOCUSATE SODIUM 100 MG (COLACE) CAP PO SCH (08:08)
[2022-05-02] MEDS: NICOTINE PATCH REMOVAL TP SCH (08:09)
[2022-05-02] MEDS: NICOTINE 14 MG (NICODERM) PATCH TD SCH (08:09)
[2022-05-02] MEDS ORDERED: ONDA4TAB11 PO (10:40)
--- NOTE | 2022-05-02 15:25 | Discharge Summary ---
Discharge Summary Hospital Course Was the Problem List Reviewed?: Yes Problems/Dx: (1) Hyponatremia Status: Acute (2) Hypokalemia Status: Acute (3) Intractable nausea and vomiting Status: Acute (4) Cyclical vomiting syndrome Status: Acute (5) Marijuana use Status: Acute (6) Tobacco abuse Status: Acute (7) Cannabis hyperemesis syndrome concurrent with and due to cannabis abuse Status: Acute Hospital Course Date of Admission: Apr 30, 2022 at 16:18 Admission Diagnosis : Hyponatremia, Hypokalemia, intractable nausea and vomiting Family Physician/Provider: No,Local Physician Date of Discharge: 05/02/22 Discharge Diagnosis: Hyponatremia, Hypokalemia, intractable nausea and vom iting, cannabis hyperemesis syndrome Hospital Course: Jean Claude Hernandez is a 26 year old female who presented with weakness to [facility]. She had been vomiting and unable to hold anything down for the past week. She was found to have severe electrolyte abnormalities with sodium 114 and potassium 1.9 She was admitted to the ICU for electrolyte correction and management of her intractable nausea and vomiting. She was treated with IV fluids with supplemental electrolytes. Her sodium gradually increased and was 134 at the time of discharge. Her potassium also increased and was 3 on the morning of disc har, though she did receive extra supplementation after that lab draw. She was not having any further nausea and vomiting at the time of discharge. She should stop smoking marijuana. She needs to establish with a new primary care physician and plans to follow up at the [facility]. She was discharged home in stable condition. Labs and Pending Lab Test: Laboratory Tests 05/01/22 20:05: Sodium Level 128L, Potassium Level 3.6, Chloride Level 90L, Carbon Dioxide Level 25, Anion Gap 13, Blood Urea Nitrogen 6L, Creatinine 0.62, Estimat Glomerular Filtration Rate 127, BUN/Creatinine Ratio 10, Glucose Level 122H, Calcium Level 8.0L 05/02/22 05:03: Sodium Level 134L, Potassium Level 3.0L, Chloride Level 95L, Carbon Dioxide Level 24, Anion Gap 15H, Blood Urea Nitrogen 4L, Creatinine 0.63, Estimat Glomer ular Filtration Rate 126, BUN/Creatinine Ratio 6, Glucose Level 148H, Calcium Level 8.4L, Magnesium Level 1.6 Microbiology 04/30/22 MRSA Screen - Final, Complete MRSA not isolated Home Meds Active Ondansetron Odt (Ondansetron) 4 Mg Tab.rapdis 4 Mg PO Q4H PRN 7 Days Assessment/Pt Instructions See instructions Discharge Planning: <30 minutes discharge planning Discharge Instructions Discharge Diet: No Restrictions Activity as Tolerated: Yes Consultations TeleICU Discharge Physical Examination Vital Signs Vital Signs Date Time Temp Pulse Resp B/P (MAP) Pulse Ox O2 Delivery O2 Flow Rate FiO2 05/02/22 11:00 05/02/22 08:51 Room Air 05/02/22 07:41 36.8 103 20 97 General Appearance: No Apparent Distress, Obese Respiratory: Lungs Clear, No Respiratory Distress Cardiovascular: Regular Rate, Rhythm, No Murmur Gastrointestinal: Normal Bowel Sounds, Non Tender, Soft Extremity: Normal Inspection, No Pedal Edema Skin: Normal Color, Warm/Dry Neurologic/Psychiatric: Alert, Normal Mood/Affect Allergies: Coded Allergies: No Known Drug Allergies (Unverified , 01/12/16) Copy Copies To 1: [facility] Discharge Summary Date of Admission Apr 30, 2022 at 16:18 Date of Discharge May 02, 2022 at 11:00 Discharge Date: May 02, 2022 Discharge Time: 11:00 Admission Diagnosis Hyponatremia Discharge Diagnosis Hyponatremia Hypokalemia Intractable nausea and vomiting Cannabis hyperemesis syndrome (1) Hyponatremia Status: Acute (2) Hypokalemia Status: Acute (3) Intractable nausea and vomiting Status: Acute (4) Cyclical vomiting syndrome Status: Acute (5) Marijuana use Status: Acute (6) Tobacco abuse Status: Acute (7) Cannabis hyperemesis syndrome concurrent with and due to cannabis abuse Status: Acute ORLANDO CHAVEZ MD May 02, 2022 15:25
== END 2022-05-02 11:00 | disposition home or self-care (01) | DRG 641 ==
LOC: ICU 16:18 → 4TH 05-01 16:45
PROVIDERS: ADMIT Internal Medicine; ATTEND Internal Medicine
DX: E87.1 Hypo-osmolality and hyponatremia (principal); E87.6 Hypokalemia; R11.2 Nausea with vomiting, unspecified; F12.90 Cannabis use, unspecified, uncomplicated; F17.210 Nicotine dependence, cigarettes, uncomplicated; F41.9 Anxiety disorder, unspecified; F32.A Depression, unspecified; Z91.14 Patient's other noncompliance with medication regimen; J45.990 Exercise induced bronchospasm
CPT/HCPCS: 36415; 36569; 71045; 76937; 80048; 80306; 81000; 83735; 84100; 85025; 87081

== ENCOUNTER → 2023-07-24 | Outpatient (CLI) | payer MEDICAID ==
[~2023-07-24] MED LIST changes: -DOXY-311 PO; +DOXY-444 PO; -POTA10CA43 PO; +POTA10CA84 PO
--- NOTE | 2023-07-24 17:16 | Diagnostic Imaging Report ---
PROCEDURE: US Non-ob pelvis comp/trans. TECHNIQUE: Multiple realtime grayscale images were obtained of the pelvis in various projections endovaginally. Transabdominal imaging was also performed. INDICATION: Painful menses. Dyspareunia. COMPARISON: 10/31/2021 FINDINGS: Uterus is anteverted and measures 6.8 x 3.8 x 6.3 cm. No suspicious myometrial masses are seen. Endometrial stripe is within normal limits and measures 3 mm in AP thickness. Trace fluid is noted within the endometrial stripe. The visualized portions of the cervix are unremarkable. No adnexal masses or free fluid are seen. Multiple ovarian follicles are identified bilaterally. The largest on the right measures 0.9 x 1.2 cm. The largest on the left measures 1.4 x 0.8 x 0.7 cm. Otherwise, the ovaries have an unremarkable sonographic appearance. As a whole, right ovary measures 2.7 x 2.3 x 1.2 cm and the left measures 2.4 x 1.2 x 1.2 cm. IMPRESSION: 1. Bilateral ovarian follicles. Otherwise, unremarkable sonographic appearance to the ovaries. 2. Small amount of fluid within the endometrial canal. Dictated by: Dictated on workstation # [id number]
== END ==
LOC: RAD 13:12
PROVIDERS: ATTEND Obstetrics & Gynecology
DX: N94.6 Dysmenorrhea, unspecified (principal); N94.10 Unspecified dyspareunia
CPT/HCPCS: 76830; 76856